=== PATIENT | male | born 1965 | race Caucasian/White ===

== ENCOUNTER 2023-06-06 16:19 | Outpatient (OUT) | payer OTHER, SELFPAY ==
--- NOTE | 2023-06-06 16:27 | XR_ITS ---
The [address] [address] Patient Name: DENNYS DURON MRN: [id number] date: 1965 Sex: M Assigned Patient Location: [facility] Current Patient Location: Accession/Order Number: [id number] Exam Date: 06/06/2023 16:30 Report Date: 06/07/2023 06:52 At the request of: LINDA MAYS Procedure: XR hip LT 2V w/ pelvis PROCEDURE: XR hip LT 2V w/ pelvis HISTORY: Left hip pain M25.552 COMPARISON: None. FINDINGS: BONES:No fracture, acute abnormality, or significant arthropathy. SOFT TISSUES:No visible soft tissue swelling. EFFUSION:None visible. OTHER: Degenerative disc disease of lumbar spine. XR/XR hip LT 2V w/ pelvis IMPRESSION: 1. No acute abnormality or significant degenerative joint disease of the left hip. 2. Suspect degenerative disc disease of lumbar spine. Electronically authenticated by: MENDY BIRMINGHAM Date: 06/07/2023 06:52
== END 2023-06-06 16:20 | disposition home or self-care (01) ==
LOC: RAD 16:21
PROVIDERS: PCP Internal Medicine; Visit Provider Internal Medicine
DX: M25.552 Pain in left hip (principal)
CPT/HCPCS: 73502

== ENCOUNTER 2023-06-07 07:40 | Outpatient (OUT) | payer OTHER, SELFPAY ==
[2023-06-07 08:09] LABS: Basophils Absolute Auto 0.1 10^3/uL (0.0-0.1); Basophils Percent Auto 0.5 % (0.2-2.0); Eosinophils Absolute Auto 0.4 10^3/uL (0.0-0.7); Eosinophils Percent Auto 4.2 % (0.9-7.0); Hematocrit 43.8 % (42.0-54.0); Hemoglobin 14.8 g/dL (14.0-18.0); Immature Granulocytes Abs Auto 0.04 10^3/uL (0.00-0.03); Immature Granulocytes Pct Auto 0.4 % (0.0-0.5); Lymphocytes Absolute Auto 1.2 10^3/uL (1.2-3.8); Lymphocytes Percent Auto 12.7 % (20.5-60.0); Mean Corpuscular HGB Conc 33.8 g/dL (29.9-35.2); Mean Corpuscular Hemoglobin 30.3 pg (25.9-34.0); Mean Corpuscular Volume 89.6 fL (80.0-94.0); Mean Platelet Volume 10.2 fL (9.5-13.5); Monocytes Absolute Auto 0.7 10^3/uL (0.3-0.8); Monocytes Percent Auto 7.1 % (1.7-12.0); Neutrophils Absolute Auto 7.3 10^3/uL (1.4-6.5); Neutrophils Percent Auto 75.1 % (43.0-75.0); Platelet Count 234 10^3/uL (150-450); Red Blood Count 4.89 10^6/uL (4.70-6.10); Red Cell Distribution Width 13.2 % (11.0-15.0); White Blood Count 9.8 10^3/uL (4.0-11.0)
[2023-06-07 08:10] LABS: Bilirubin Urine NEGATIVE (NEGATIVE); Blood Urine LARGE (NEGATIVE); Clarity Urine CLEAR (CLEAR); Color Urine LT. YELLOW (YELLOW); Glucose Urine UA NEGATIVE (NEGATIVE); Ketones Urine NEGATIVE (NEGATIVE); Leukocyte Esterase Urine NEGATIVE (NEGATIVE); Nitrite Urine NEGATIVE (NEGATIVE); Protein Urine NEGATIVE (NEG/TRACE); Specific Gravity Urine >=1.030 (1.005-1.025); Urobilinogen Urine 0.2 EU/dL (0.2-1.0)
[2023-06-07 08:45] LABS: Bacteria Urine NONE SEEN #/HPF (NONE SEEN); WBC Urine NONE SEEN #/HPF (NONE SEEN)
[2023-06-07 08:46] LABS: Mucus Urine NONE SEEN (NONE SEEN)
[2023-06-07 08:47] LABS: Crystals Seen? Seen #/HPF (None Seen); Squamous Epithelial Cell Urine FEW #/LPF (NONE/RARE)
[2023-06-07 08:48] LABS: Alanine Aminotransferase 25 U/L (16-63); Anion Gap 12.7; Calcium 8.8 mg/dL (8.5-10.1); Calcium Oxalate Crystals Urine RARE; Carbon Dioxide 27.1 mmol/L (21.0-32.0); Chloride 104 mmol/L (98-107); Chol HDL Ratio 6.1; Cholesterol 233 mg/dL (<=200); Estimated GFR (African America >60 (>=60); Estimated GFR (Non-African Ame >60 (>=60); Glucose 121 mg/dL (74-106); HDL Cholesterol 38 mg/dL (40-60); Potassium 3.8 mmol/L (3.5-5.1); Sodium 140 mmol/L (136-145); Triglycerides 166 mg/dL (<=150); VLDL CHOLESTEROL 33.2 mg/dL
[2023-06-07 08:49] LABS: Microalbumin Urine Random 3.2 mg/dL (<=30.0); Urine Culture Indicated ALREADY ORDERED
[2023-06-07 09:46] LABS: Estimated Average Glucose 123 mg/dL; Glycohemoglobin A1C 5.9 % (4.5-6.2)
[2023-06-07 17:01] LABS: Prostate Specific Antigen Scrn 2.41 ng/mL (<=4.00)
== END 2023-06-07 07:41 | disposition home or self-care (01) ==
LOC: LAB 07:43
PROVIDERS: PCP Internal Medicine; Visit Provider Internal Medicine
DX: Z00.00 Encounter for general adult medical examination without abnormal findings (principal); E78.00 Pure hypercholesterolemia, unspecified; E11.65 Type 2 diabetes mellitus with hyperglycemia; I10 Essential (primary) hypertension; Z79.899 Other long term (current) drug therapy; R35.0 Frequency of micturition; N40.1 Benign prostatic hyperplasia with lower urinary tract symptoms; Z12.5 Encounter for screening for malignant neoplasm of prostate
CPT/HCPCS: 36415; 80048; 80061; 81001; 82043; 83036; 84460; 85025; 87086; G0103

== ENCOUNTER 2024-01-09 20:57 | Outpatient (OUT) | payer OTHER, SELFPAY | END 2024-01-09 20:58 | disposition home or self-care (01) | LOC: SLEEP 20:57 | PROVIDERS: PCP Psychiatry & Neurology Neurology; Visit Provider Psychiatry & Neurology Neurology | DX: G47.33 Obstructive sleep apnea (adult) (pediatric) (principal) | CPT/HCPCS: 95810 ==

== ENCOUNTER 2024-02-11 20:57 | Outpatient (OUT) | payer OTHER, SELFPAY | END 2024-02-11 20:58 | disposition home or self-care (01) | LOC: SLEEP 20:57 | PROVIDERS: PCP Psychiatry & Neurology Neurology; Visit Provider Psychiatry & Neurology Neurology | DX: G47.33 Obstructive sleep apnea (adult) (pediatric) (principal) | CPT/HCPCS: 95811 ==

== ENCOUNTER 2024-05-21 10:27 | Outpatient (OUT) | payer OTHER, SELFPAY ==
--- NOTE | 2024-05-21 10:48 | XR_ITS ---
The [address] [address] Patient Name: DENNYS DURON MRN: [id number] date: 1965 Sex: M Assigned Patient Location: [facility] Current Patient Location: Accession/Order Number: [id number] Exam Date: 05/21/2024 10:40 Report Date: 05/24/2024 10:26 At the request of: LINDA MAYS Procedure: XR cervical spine w flex/ext EXAMINATION: XR cervical spine w flex/ext HISTORY: Neck Pain COMPARISON: No relevant comparison available. FINDINGS: BONES: Neutral projection demonstrates normal alignment with no acute fracture or spondylolisthesis. Mild facet osteoarthropathy DISC SPACES: Normal. No significant disc height narrowing, subluxation, or endplate abnormality. PARASPINOUS: Negative. No paraspinous abnormality is seen. OTHER: No transient spondylolisthesis with flexion or extension XR/XR cervical spine w flex/ext IMPRESSION: Mild facet osteoarthropathy No dynamic instability Electronically authenticated by: NEL BELLE Date: 05/24/2024 10:26
== END 2024-05-21 10:28 | disposition home or self-care (01) ==
PROVIDERS: PCP Internal Medicine; Visit Provider Internal Medicine
DX: Z00.00 Encounter for general adult medical examination without abnormal findings (principal); M54.2 Cervicalgia
CPT/HCPCS: 72052

== ENCOUNTER 2024-06-20 08:56 | Outpatient (OUT) | payer OTHER, SELFPAY ==
[2024-06-20 09:30] LABS: Basophils Absolute Auto 0.1 10^3/uL (0.0-0.1); Basophils Percent Auto 0.7 % (0.2-2.0); Eosinophils Absolute Auto 0.4 10^3/uL (0.0-0.7); Eosinophils Percent Auto 5.1 % (0.9-7.0); Hematocrit 41.6 % (42.0-54.0); Immature Granulocytes Abs Auto 0.02 10^3/uL (0.00-0.03); Immature Granulocytes Pct Auto 0.3 % (0.0-0.5); Lymphocytes Percent Auto 13.3 % (20.5-60.0); Mean Corpuscular HGB Conc 33.7 g/dL (29.9-35.2); Mean Corpuscular Hemoglobin 30.3 pg (25.9-34.0); Mean Platelet Volume 9.9 fL (9.5-13.5); Monocytes Absolute Auto 0.5 10^3/uL (0.3-0.8); Neutrophils Absolute Auto 5.4 10^3/uL (1.4-6.5); Neutrophils Percent Auto 73.6 % (43.0-75.0); Platelet Count 253 10^3/uL (150-450); Red Blood Count 4.62 10^6/uL (4.70-6.10); Red Cell Distribution Width 13.2 % (11.0-15.0); White Blood Count 7.3 10^3/uL (4.0-11.0)
[2024-06-20 09:34] LABS: Microalbumin Urine Random 1.6 mg/dL (<=30.0)
[2024-06-20 09:36] LABS: Estimated Average Glucose 120 mg/dL; Glycohemoglobin A1C 5.8 % (4.5-6.2)
[2024-06-20 10:16] LABS: Alanine Aminotransferase 30 U/L (16-63); Albumin Globulin Ratio 1.2; Albumin Level 3.7 g/dL (3.4-5.0); Alkaline Phosphatase 92 U/L (46-116); Anion Gap 12.8; Aspartate Amino Transferase 15 U/L (15-37); BUN Creatinine Ratio 26.8; Bilirubin Total 0.4 mg/dL (0.2-1.0); Calcium 8.9 mg/dL (8.5-10.1); Carbon Dioxide 28.2 mmol/L (21.0-32.0); Chloride 105 mmol/L (98-107); Cholesterol 229 mg/dL (<=200); Estimated GFR (African America >60 (>=60); Estimated GFR (Non-African Ame >60 (>=60); Glucose 125 mg/dL (74-106); HDL Cholesterol 57 mg/dL (40-60); Sodium 142 mmol/L (136-145); Total Protein 6.7 g/dL (6.4-8.2); Triglycerides 65 mg/dL (<=150)
[2024-06-20 10:34] LABS: Prostate Specific Antigen Scrn 1.41 ng/mL (<=4.00)
== END 2024-06-20 08:57 | disposition home or self-care (01) ==
LOC: LAB 08:57
PROVIDERS: PCP Internal Medicine; Visit Provider Internal Medicine
DX: Z00.00 Encounter for general adult medical examination without abnormal findings (principal)
CPT/HCPCS: 36415; 80053; 80061; 82043; 83036; 85025; G0103

== ENCOUNTER 2024-12-12 11:31 | Outpatient (OUT) | payer OTHER, SELFPAY ==
--- NOTE | 2024-12-12 | XR_ITS ---
[address] [address] Patient Name: DENNYS DURON MRN: [id number] date: 1965 Sex: M Assigned Patient Location: [facility] Current Patient Location: Accession/Order Number: [id number] Exam Date: 12/12/2024 15:49 Report Date: 12/13/2024 17:01 At the request of: EVAN JETT DO Procedure: XR chest 2V Plain film chest Single view HISTORY: Inspire implantation. Obstructive sleep apnea. COMPARISON: 09/07/2020 FINDINGS: SUPPORT DEVICES: None POSTSURGICAL CHANGES: None HEART: Within normal limits PULMONARY KARTHIK: Within normal limits MEDIASTINUM: Unremarkable LUNGS AND PLEURA: No acute lung process, pleural effusion or pneumothorax identified. Lungs remain hyperinflated. BONY STRUCTURES: Intact ADDITIONAL FINDINGS None XR/XR chest 2V IMPRESSION: No acute process. Intact implantation device. Impression dictated by: Romain Sahni M.D.12/13/2024 5:01 PM Dictation [email or web address] Electronically authenticated by: [id number] Y Date: 12/13/2024 17:01
--- NOTE | 2024-12-12 | XR_ITS ---
[address] [address] Patient Name: DENNYS DURON MRN: [id number] date: 1965 Sex: M Assigned Patient Location: [facility] Current Patient Location: [facility] Accession/Order Number: [id number] Exam Date: 12/12/2024 22:14 Report Date: 12/12/2024 22:24 At the request of: EVAN JETT DO Procedure: XR cervical spine 2-3V Single lateral viewcervical spine HISTORY: Evaluation of the implantation leads COMPARISON: 05/21/2024 POSTOPERATIVE CHANGES: Implant lead is intact. BONY ALIGNMENT: Adequate HYPERMOBILITY::No bending imaging. LISTHESIS:Minor midcervical spondylosis. FRACTURE: None DISC DEGENERATION: Mild spondylosis. FACETS: Extensive multilevel facet degeneration. FORAMEN: Unremarkable. DENS: Intact CRANIOCERVICAL JUNCTION: Unremarkable SOFT TISSUES: Unremarkable XR/XR cervical spine 2-3V IMPRESSION: Intact lead. No complication. Similar cervical spine degeneration. Impression dictated by: Romain Sahni M.D.12/12/2024 10:24 PM Dictation Location: [place] [address] Electronically authenticated by: [id number] Y Date: 12/12/2024 22:24
--- OUTSIDE RECORDS SUMMARY | 2024-12-12 11:56 | XMS_ITS | CCD ---
Author Organization [facility] Care Team Providers Care Oracle Adf Consultant Name Role Phone MAYRA PRINCEL B Unavailable Unavailable MAYRA PRINCEL Natali Unavailable Unavailable Aliza Gleason Unavailable Unavailable Aliza Gleason Unavailable Unavailable Joby Mays Unavailable Unavailabl Aliza Porras Unavailable Unavailable Veronique SALDIVAR, Joon Unavailable Micheal RECORDS TECHNICIAN.BELINDA, Zeynep Unavailable [phone] Dang GALVEZ, Diana Unavailable [phone] Joby Mays DO Primary Care Provider Veronique SALDIVAR, Joon Unavailable Micheal RECORDS TECHNICIAN.BELINDA, Zeynep Unavailable Dang GALVEZ, Diana Unavailable Joby Mays DO Primary Care Provider Veronique SALDIVAR, Joon Unavailable Dang GALVEZ, Diana Unavailable [phone] Joby Mays DO Primary Care Provider TABATHA, DR MCEKON Attending Unavailable BALL, DR MCKEON Admitting Unavailable BALL, DR MCKEON Primary Care Unavailable BALL, DR MCKEON Admitting Unavailable BALL, DR MCKEON Primary Care Unavailable BALL, DR MCKEON Consulting Unavailable BALL, DR MCKEON Attending Unavailable ZIEBER, DR MENDY Berman Consulting Unavailable BALL, DR MCKEON Admitting Unavailable BALL, DR MCKEON Primary Care Unavailable BALL, DR MCKEON Consulting Unavailable BALL, DR MCKEON Attending Unavailable ZIEBER, DR MENDY Berman Consulting Unavailable Veronique SALDIVAR, Joon Unavailable Micheal RECORDS TECHNICIAN.BELINDA, Zeynep Unavailable Sessler RN, Diana Unavailable Ball DO, Joby Powers Primary Care Provider Tabatha Joby Unavailable Ball DO, Joby E Primary Care Provider Sorin LITTLE, Saranya Unavailable Unavailable Dang GALVEZ, Diana Unavailable Evan Eugene Primary Care Provider Josy Santana Unavailable Ball DO, Joby E Primary Care Provider OLAMIDE VELASQUEZ Attending Unavailable BALL, JOBY E Referring Unavailable BALL, JOBY Powers Primary Care Unavailable RANIMEJIA Attending Unavailable BALL, JOBY E Referring Unavailable BALL, JOBY Powers Primary Care Unavailable RANIMEJIA Attending Unavailable BALL, JOBY E Referring Unavailable BALL, JOBY Powers Primary Care Unavailable BALL, JOBY E Referring Unavailable BALL, JOBY Powers Primary Care Unavailable GRILLISLAZARA Admitting Unavailable GRILLIS, LAZARA Powers Attending Unavailable GRILLISLAZARA Referring Unavailable BALL, JOBY Powers Primary Care Unavailable TRINO ISSA Attending Unavail able BALL, JOBY Powers Primary Care Unavailable GRILLISLAZARA Attending Unavailable GRILLIS, LAZARA Powers Referring Unavailable BALL, JOBY Powers Primary Care Unavailable RANIMEJIA MCLAIN Referring Unavailable BALL, JOBY E Primary Care Unavailable Ball Joby SALDIVAR Primary Care Provider MurJoby valdivia Attending Unavailable Ball, Joby Primary Care Unavailable Murcek, Joby Admitting Unavailable Murcek, Joby Admitting Unavailable Murcek, Joby Attending Unavailable Ball, Joby Primary Care Unavailable Ball Joby WEISS Primary Care Provider Murcek DO Joby Attending Provider JC, JOBY Fang Attending Unavailable EVNA EUGENE Attending Unavailable BALL, JOBY E Referring Unavailable GILLMORSILKE Attending Unavailable MURCEK, JOBY Fang Attending Unavailable GILLMORSILKE Referring Unavailable MURCEK, JOBY Fang Attending Unavailable GILLMORSILKE Attending Unavailable MURCEK, JOBY Fang Attending Unavailable MURCEK, JOBY Fang Attending Unavailable MURCEK, JOBY Fnag Attending Unavailable Ball , Joby Powers Primary Care Provider JOBY MAYS Primary Care Unavailable ABHYANKAR, JOON Referring Unavailable BALL, JOBY E Primary Care Unavailable BALL, JOBY E Primary Care Unavailable ABHYANKAR, JOON Referring Unavailable RACHAEL, TRINH Attending Unavailable BALL, JOBY E Primary Care Unavailable ABHYANKAR, JOON Referring Unavailable BALL, JOBY E Primary Care Unavailable BALL, JOBY E Primary Care Unavailable ABHYANKAR, JOON Referring Unavailable ABHYANKAR, JOON Attending Unavailable BALL, JOBY E Primary Care Unavailable BALL, JOBY E Primary Care Unavailable ABHYANKAR, JOON Referring Unavailable BALL, JOBY E Primary Care Unavailable ABHYANKAR, JOON Referring Unavailable BALL, JOBY E Primary Care Unavailable RACHAEL, TRINH Referring Unavailable BALL, JOBY E Primary Care Unavailable RACHAEL, TRINH Referring Unavailable ABHYANKAR, JOON Attending Unavailable ABHYANKAR, JOON Referring Unavailable BALL, JOBY E Primary Care Unavailable BALL, JOBY E Primary Care Unavailable BALL, JOBY E Primary Care Unavailable BALL, JOBY E Primary Care Unavailable ABHYANKAR, JOON Referring Unavailable ABHYANKAR, JOON Attending Unavailable BALL, JOBY E Primary Care Unavailable BALL, JOBY E Primary Care Unavailable RACHAEL, TRINH Attending Unavailable RACHAEL, TRINH Referring Unavailable BALL, JOBY E Primary Care Unavailable WANDA RODRIGUEZ Attending Unavailable BALL, JOBY E Primary Care Unavailable RACHAEL, TRINH Referring Unavailable BALL, JOBY E Primary Care Unavailable RACHAEL, TRINH Referring Unavailable BALL, JOBY E Primary Care Unavailable WANDA RODRIGUEZ Attending Unavailable RACHAEL, TRINH Referring Unavailable Ball DO, Joby E Primary Care Provider Evan Eugene DO Unavailable Allergies Allergy Classification Reported Allergen(s) Allergy Type Date of Onset Reaction(s) Facility (20 sources) Allopurinol; Translations: [ALLOPURINOL] Drug Allergy 09-10-20 13 Unknown [facility] (20 sources) Metoclopramide; Translations: [METOCLOPRAMIDE HCL] Drug Allergy 07-08-20 13 Mental Status Change [facility] (7 sources) Iothalamic Acid Drug Allergy 09-10-20 13 Unknown [facility] (2 sources) Tetanus Vaccines And Toxoid; Translations: [TETANUS VACCINES AND TOXOID] Drug Allergy 07-08-20 13 Anaphylaxis [facility] (20 sources) Tetanus Vaccines And Toxoid Drug Allergy 07-08-20 13 Anaphylaxis [facility] (2 sources) Iothalamate Drug Allergy 09-10-20 13 [facility] (10 sources) Acetaminophen / HYDROcodone Drug Allergy Unknown [facility] Other (20 sources) Metoclopramide; Translations: [METOCLOPRAMIDE] Drug Allergy 07-08-20 Other: See Comments, Unknown [facility] (10 sources) Tetanus-Diphtheri a Toxoids Td Drug allergy Unknown [facility] Other (20 sources) amLODIPine Drug Allergy 02-13-20 24 Unknown [facility] Other (20 sources) HMG-CoA reductase inhibitor Drug allergy 06-07-20 23 Unknown [facility] Other (1 source) patient allergy list reviewed by nurse or physicia Propensity to adverse reactions 05-21-20 Comment:Done [facility] [place] Other (20 sources) Acetaminophen; Translations: [ACETAMINOPHEN] Drug Allergy 05-21-20 Unknown Reaction [facility] (20 sources) HYDROcodone; Translations: [HYDROCODONE] Drug Allergy 05-21-20 Other: See Comments [facility] (4 sources) Swasatt-KRI-UfH Reductase Inhibitor; Translations: [Xrwlwhr-TVS-PtT Reductase Inhibitor] Allergy to substance 05-21-20 Unknown Reaction, Muscle Pain [facility] (20 sources) tetanus and diphtheria toxoids; Translations: [TETANUS AND DIPHTHERIA TOXOIDS] Allergy to substance 06-28-20 17 Anaphylaxis [facility] (20 sources) Doxycycline; Translations: [doxycycline] Drug Allergy 06-23-20 24 GI Upset [facility] (20 sources) atorvastatin; Translations: [ATORVASTATIN] Drug Allergy 01-08-20 Other: See Comments, muscle cramps [facility] (18 sources) Tetanus vaccine Propensity to adverse reactions 02-13-20 [facility] (18 sources) Hhmfste-Vjhnem-Xm ell Pertussis Propensity to adverse reactions 06-07-19 66 Anaphylaxis [facility] (1 source) Metoclopramide Drug Allergy 09-12-20 [facility] Medications Current Medications Medication Drug Class(es) Dates Sig (Normalized) Sig (Original) acetaminophen 500 mg oral tablet (20 sources) take 1 tablet by mouth every eight hours as needed acetaminophen (TYLENOL EXTRA STRENGTH) 500 mg tablet Take 500 mg by mouth every 8 hours as needed. Active Comment on above: Take 500 mg by mouth every 8 hours as needed. [id number] 200 actuat albuterol 0.09 mg/actuat metered dose inhaler (20 sources) beta2-Adrenergic Agonist Start: 12-19-2023 take 2 puff(s) by inhalation once daily as needed albuterol (PROVENTIL HFA;VENTOLIN HFA) 90 mcg/actuation inhaler Inhale 2 puffs daily as needed. 12/19/2023 Active Start: 12-11-2023 End: 12-19-2023 Albuterol Sulfate 90 mcg/act uation HFA aerosol inhaler Active 2 PUFF INHALATION every 6 to 8 hours as needed for shortness of breath or wheezing 8.5 December 19, 2023 12:35pm Start: 07-26-2022 albuterol HFA 90 mcg/act inhaler 07/26/2022 Active Start: 08-19-2020 albuterol HFA (PROVENTIL HFA, VENTOLIN HFA) 90 mcg/actuation inhaler INHALE 2 PUFFS BY MOUTH NEEDED 08/19/2020 Active take 2 puff(s) by in halation every four hours as needed Ventolin HFA 108 (90 Base) MCG/ACT 2 puffs as needed Inhalation every 4 hrs Active Comment on above: INHALE 2 PUFFS BY MO UT NEEDED Albuterol 90 MCG/ACT (10 sources) Albuterol 90 MCG /ACT Inhalation Active amLODIPine (20 sources) Dihydropyridine Calcium Channel Evelio Start: 09-10-2024 Amlodipine 10 mg tablet Active 0 .ROUTE .COMPLEX September 10, 2024 7:00am TAKE 1 TABLET DAILY Start: 09-10-2024 End: 09-10-2024 Amlodipine 10 mg tablet Disc ontinued 0 .ROUTE .COMPLEX September 10, 2024 6:59am September 10, 2024 7:00am TAKE 1 TABLET DAILY Start: 07-26-2022 End: 09-10-2024 take 1 tablet by mouth once daily amLODIPine (NORVASC) 10 mg tablet Take 10 mg by mouth once daily. 07/26/2022 Active End: 08-11-2022 amLODIPine (Norvasc) 5 MG ta blet 1 (one) time each day at the same time. Active Comment on above: Take 5 mg by mouth o nce daily. Take 10 mg by mouth once daily. benazepril (20 sources) Angiotensin Converting Enzyme Inhibitor Start: 09-10-2024 Benazepril 40 mg tablet Active 0 .ROUTE .COMPLEX 90 September 10, 2024 6:59am TAKE 1 TABLET DAILY Start: 06-27-2017 End: 09-10-2024 take 1 tablet by mouth once daily Benazepril 40 mg tablet Discontinued 40 MG PO Daily June 26, 2017 11:00pm September 10, 2024 6:59am take 1 tablet by frankie th every twenty-four hours Benazepril HCl 20 MG 1 tablet Orally Once a day Active Comment on above: Take 40 mg by mouth once daily. 60 actuat budesonide 0.16 mg/actuat / formoterol fumarate 0.0045 mg/actuat metered dose inhaler (20 sources) Corticosteroid, beta2-Adrenergic Agonist Start: 12-25-2023 take 2 puff(s) by inhalation once daily Symbicort 160-4.5 MCG/ACT inhaler Inhale 2 puffs Daily 12/25/2023 Active Start: 12-25-2023 take 2 puff(s) by in halation in the morning budesonide-formoteroL (SYMBICORT) 160-4.5 mcg/actuation inhaler Inhale 2 puffs in the morning and 2 puffs before bedtime. 12/25/2023 Active Start: 12-25-2023 End: 12-25-2023 take 1 puff(s) by inhalation every twelve hours Budesonide-Formoterol 160-4.5 mcg/actuation HFA aerosol inhaler Active 2 PUFF INHALATION Every 12 hours 30.6 90 December 25, 2023 12:13pm carvedilol 25 mg oral tablet (8 sources) alpha-Adrenergic Evelio, beta-Adrenergic Evelio take 1 tablet by mouth every twelve hours Carvedilol 25 MG 1 tablet with food Orally Twice a day Active cephalexin 500 mg oral capsule (4 sources) Cephalosporin Antibacterial Start: 06-23-20 End: 07-24-20 take 1 capsule by mouth three times daily CEPHalexin (KEFLEX) 500 mg capsule Take 1 capsule (500 mg total) by mouth 3 (three) times a day. 06/23/2024 Active doxycycline hyclate 100 mg oral tablet (2 sources) Tetracycline-class Drug Start: 05-08-20 End: 05-18-20 take 1 tablet by mouth in the morning, then take 1 tablet by mouth at bedtime doxycycline (VIBRA-TABS) 100 mg tablet Take 1 tablet (100 mg total) by mouth in the morning and 1 tablet (100 mg total) before bedtime. 05/08/2024 05/18/2024 Active fenofibrate 160 mg oral tablet (8 sources) Peroxisome Proliferator Receptor alpha Agonist take 1 tablet by mouth every twenty-four hours Fenofibrate 160 MG 1 tablet Orally Once a day Active gabapentin 100 mg oral capsule (20 sources) Anti-epileptic Agent Start: 04-16-20 End: 11-25-19 take 1 capsule by mouth at bedtime gabapentin (Neurontin) 100 MG capsule Take 100 mg by mouth at bedtime. 04/16/2023 Active Comment on above: Take 1 capsule by mo [facility] daily at bedtime for 60 days. Take 1 capsule by mo [facility] daily at bedtime for 180 days. ibuprofen 200 mg oral capsule (20 sources) Nonsteroidal Anti-inflammatory Drug Ibuprofen 200 mg cap Take by mouth every 6 hours as needed. Active Comment on above: Take by mouth every 6 hours as needed. loratadine 10 mg oral tablet (20 sources) Start: 12-11-19 take 1 tablet by mouth once daily as needed Loratadine (Claritin) 10 mg tablet Active 10 MG PO Daily as needed for allergy symptoms December 11, 2023 12:00am loratadine (Clar itin Reditabs) 5 MG tablet dispersible dissolvable tablet Take 10 mg by mouth if needed Active Comment on above: Take 10 mg by mouth as needed. metFORMIN hydrochloride 500 mg oral tablet (20 sources) Biguanide Start: 06-07-2015 End: 12-12-2023 metFORMIN (Glucophage) 500 MG tablet 1 (one) time each day at the same time. 06/07/2015 Active End: 03-22-2023 take 1 tablet by mouth once daily at dinner metFORMIN ER (FORTAMET) 500 mg 24 hr tablet Take 500 mg by mouth daily with dinner. 0 03/22/2023 Discontinued take 1 tablet by frankie th every twelve hours metFORMIN HCl 500 MG 1 tablet with meals Orally Twice a day Active Comment on above: Take 500 mg by mouth once daily. Take 500 mg by mouth daily with dinner. 30 actuat mometasone furoate 0.11 mg/actuat dry powder inhaler (20 sources) Corticosteroid Start: 10-24-19 End: 06-24-20 take 1 puff(s) by inhalation once daily ASMANEX TWISTHALER 110 mcg/ actuation (30) inhaler Inhale 1 puff once daily. 10/24/2023 06/24/2024 Discontinued (Cost of medication) Start: 07-27-2022 End: 03-22-2023 ASMANEX TWISTHALER 110 mcg/ actuation (30) twisthaler Mometasone Furoa te (Asmanex HFA) 100 MCG/ACT aerosol Inhale 2 (two) times a day Active Asmanex (30 Mete red Doses) 110 MCG/ACT USE 1 TO 2 INHALATIONS DAILY Active Multiple Vitamin (Multi-Vitamin) tablet (18 sources) take 1 tablet by frankie th in the morning Multiple Vitamin (Multi-Vitamin) tablet Take 1 tablet by mouth in the morning. Active multivitamin tablet (20 sources) take 1 tablet by frankie th once daily multivitamin tablet Take 1 tablet by mouth once daily. Active take 1 tablet by mouth once morris y multivitamin tablet Take 1 tablet by mouth once daily. 0 Active Comment on above: Take 1 tablet by frankie th once daily. plvlwqhayfjk-Xx-hbad- minerals tablet (8 sources) take 1 tablet by mouth once daily pxmrrvabpgtt-Ho-juez-min erals tablet Take 1 tablet by mouth respiratory nightly. Active take 1 tablet by frankie th in the morning dlnlntrtsppa-Kg-nhnc-minerals tablet Romero e 1 tablet by mouth in the morning. 0 Active naproxen 500 mg oral tablet (1 source) Nonsteroidal Anti-inflammatory Drug Start: 11-11-2024 take 1 tablet by mouth twice daily as needed for pain Naproxen 500 mg tablet Active 500 MG PO Twice daily as needed for pain 180 90 November 11, 2024 12:00am omeprazole 40 mg delayed release oral capsule (20 sources) Proton Pump Inhibitor Start: 01-30-2024 take 1 capsule by mouth in the morning omeprazole (PriLOSEC) 40 mg capsule Take 1 capsule (40 mg total) by mouth in the morning. 30 capsule 1 01/30/2024 Active Start: 06-27-2017 End: 12-11-2023 take 1 tablet by mouth once daily Omeprazole 20 mg tablet,delayed release (DR/EC) Discontinued 20 MG PO Daily June 26, 2017 11:00pm December 11, 2023 11:16am take 20 mg by mouth once daily O MEPRAZOLE (PRILOSEC ORAL) Take 20 mg by mouth once daily. Active End: 01-30-2024 omeprazole (PriLOSEC) 20 mg capsule Take 1 capsule (20 mg total) by mouth as needed. 01/30/2024 Discontinued Comment on above: Take 20 mg by mouth once daily. sertraline 100 mg oral tablet (20 sources) Serotonin Reuptake Inhibitor Start: 07-07-2024 End: 07-07-2024 take 2 tablets by mouth once daily Sertraline 100 mg tablet Active 200 MG PO Daily 180 July 07, 2024 5:10pm Start: 12-11-2023 End: 12-12-2023 take 2 tablets by mouth once daily Sertraline 100 mg tablet Discontinued 200 MG PO Daily 180 December 12, 2023 10:49am December 12, 2023 9:55pm Start: 12-11-2023 End: 12-12-2023 take 200 mg by mouth once daily Sertraline Discontinue d 200 MG PO Daily 180 December 12, 2023 11:49am December 12, 2023 10:55pm Start: 06-07-2016 sertraline (Zo loft) 100 MG tablet every 12 (twelve) hours. 06/07/2016 Active take 1 tablet by frankie th twice daily sertraline (ZOLOFT) 100 mg tablet Take 100 mg by mouth twice daily. Active take 1 tablet by frankie th every twenty-four hours Zoloft 100 MG 1 tablet Orally Once a day for 30 day(s) Active Sertraline HCl 1 00 mg TAKE 2 TABLETS DAILY Active Comment on above: Take 100 mg by mouth twice daily. tadalafil 5 mg oral tablet (1 source) Phosphodiesterase 5 Inhibitor Start: take 1 tablet by mouth once daily Tadalafil 5 mg tablet Active 5 MG PO Daily November 11, 2024 12:00am Completed/Discontinued Medications Medication Drug Class(es) Dates Sig (Normalized) Sig (Original) amoxicillin 875 mg / clavulanate 125 mg oral tablet (9 sources) Penicillin-class Antibacterial Start: 03-31-2021 End: 03-22-2023 amoxicillin-clav ulanic acid (AUGMENTIN) 875-125 mg per tablet Augmentin Tablets 875 MG (8 sources) Start: 06-23-2015 take 1 tablet by mouth every twelve hours Augmentin Tablets 875 MG 1 bby mouth every 12 hours with probiotics for 10 days Jun, Not-Taking Start: 06-23-2015 take 1 tablet by frankie th every twelve hours Augmentin Tablets 875 MG 1 bby mouth every 12 hours with probiotics for 10 days Jun, Active bisoprolol fumarate 10 mg / hydroCHLOROthiazide 6.25 mg oral tablet (1 source) Thiazide Diuretic, beta-Adrenergic Evelio End: 08-15-2021 take 1 tablet by mouth once daily bisoprolol-hydrochlorothiazide (ZIAC) 10-6.25 mg per tablet Take 1 tablet by mouth once daily. 0 08/15/2021 Discontinued Comment on above: Take 1 tablet by frankie th once daily. Budesonide (20 sources) Corticosteroid Start: 12-11-2023 End: 12-25-2023 take 180 ug by inhalat ion twice daily Budesonide 180 mcg/actuation aerosol powdr breath activated Discontinued 180 MCG INHALATION Twice daily December 11, 2023 12:00am December 25, 2023 12:10pm Start: 12-11-2023 End: 12-25-2023 take 180 ug by inhalation twice daily Budesonide Discontinued 180 MCG INHALATION Twice daily December 11, 2023 1:00am December 25, 2023 1:10pm Start: 08-27-2023 take 1 puff(s) by in halation twice daily Pulmicort Flexhaler 180 MCG/ACT 1 puff Inhalation Twice a day for 90 days Aug, Active take 2 mL by inhalat ion once daily budesonide (PULMICORT) 0.25 mg/2 mL nebulizer solution Inhale 2 mL (0.25 mg total) by nebulization once daily. Active take 0.25 mg by inha lation once daily budesonide (PULMICORT) 0.25 mg/2 mL nebulizer solution Inhale 0.25 mg by nebulization once daily. 0 Active End: 03-22-2023 take 2 puff(s) by inhalation twice daily budesonide (PULMICORT FLEXHALER) 180 mcg/actuation aepb Inhale 2 Puffs as instructed twice daily. 0 03/22/2023 Discontinued take 2 puff(s) by in halation twice daily budesonide (PULMICORT FLEXHALER) 180 mcg/actuation aepb Inhale 2 Puffs as instructed twice daily. 0 Active Comment on above: Inhale 2 Puffs as in structed twice daily. 24 hr buPROPion hydrochloride 150 mg extended release oral tablet (1 source) Aminoketone Start: 01-12-20 End: 08-15-20 buPROPion XL (WELLBUTRIN XL) 150 mg 24 hr tablet cefuroxime 500 mg oral tablet (10 sources) Cephalosporin Antibacterial Start: 12-05-19 take 1 tablet by mouth every twelve hours Cefuroxime Axetil 500 MG 1 tablet Orally every 12 hrs for 5 day(s) Nov, Not-Taking ezetimibe 10 mg oral tablet (1 source) Dietary Cholesterol Absorption Inhibitor Start: 06-25-20 End: 08-29-20 24 take 1 tablet by mouth once daily Ezetimibe 10 mg tablet Discontinued 10 MG PO Daily June 24, 2024 11:00pm August 29, 2024 2:35pm 30 actuat fluticasone furoate 0.05 mg/actuat dry powder inhaler (3 sources) Corticosteroid Start: 12-24-19 End: 12-25-19 Fluticasone Furoate 50 mcg/actuation blister with device Discontinued 1 INH INHALATION Daily December 23, 2023 11:00pm December 25, 2023 12:08pm hydrOXYzine pamoate 25 mg oral capsule (1 source) Antihistamine Start: 06-01-20 End: 08-15-20 hydrOXYzine pamoate (VISTARIL) 25 mg capsule TAKE 1-2 capsules THREE TIMES DAILY NEEDED FOR ANXIETY 0 06/01/2020 08/15/2021 Discontinued Comment on above: TAKE 1-2 capsules TH REE TIMES DAILY NEEDED FOR ANXIETY meloxicam 7.5 mg oral tablet (13 sources) Nonsteroidal Anti-inflammatory Drug Start: 12-11-19 End: 08-29-20 take 1 tablet by mouth once daily Meloxicam 7.5 mg tablet Discontinued 7.5 MG PO Daily December 11, 2023 12:00am August 29, 2024 2:35pm take 1 tablet by frankie th every twenty-four hours Meloxicam 7.5 MG 1 tablet Orally Once a day Active mirtazapine 45 mg oral tablet (1 source) End: 08-15-2021 take 1 tablet by mouth once daily at bedtime mirtazapine (REMERON) 45 mg tablet Take 45 mg by mouth daily at bedtime. 0 08/15/2021 Discontinued Comment on above: Take 45 mg by mouth daily at bedtime. Mometasone (Asmanex Hfa) 100 mcg/actuation HFA aerosol inhaler (3 sources) Start: 12-11-2023 End: 12-25-2023 take 1 puff(s) by inhalation twice daily Mometasone (Asmanex Hfa) 100 mcg/actuation HFA aerosol inhaler Discontinued 2 PUFF INHALATION Twice daily December 11, 2023 12:00am December 25, 2023 12:10pm Start: 12-11-2023 End: 12-25-2023 take 1 puff(s) by inhalation twice daily Mometasone (Asmanex Hfa) 100 mcg/actuation HFA aerosol inhaler Discontinued 2 PUFF INHALATION Twice daily December 11, 2023 1:00am December 25, 2023 1:10pm riTUXimab-pvvr 700 mg in NaC l 0.9% 250 mL (RUXIENCE) (3 sources) Start: 11-12-2024 End: 11-12-2024 700 mg (rounded from 735 mg = 375 mg/m2 1.96 m2 Treatment Plan BSA from Recorded weight), INTRAVENOUS, ONCE, 1 dose, On Sun11/12/24 at 1000, EXP: 0930 11/13/24 Total Volume = 250 ml Infuse 50 ml over 30 minutes then 200 ml over 60 minutes. Refrigerate., Medication Substitution: [facility] preferred product has been replaced with the insurance mandated product Start: 09-17-2024 End: 09-17-2024 700 mg (rounded from 738.75 mg = 375 mg/m2 1.97 m2 Treatment Plan BSA from Recorded weight), INTRAVENOUS, ONCE, 1 dose, On Sun09/17/24 at 1030, EXP: 09/18/2024 0945 RT Total Volume = 250 ml Infuse 50 ml over 30 minutes then 200 ml over 60 minutes. Refrigerate. Start: 09-10-2024 End: 09-10-2024 700 mg (rounded from 738.75 mg = 375 mg/m2 1.97 m2 Treatment Plan BSA from Recorded weight), INTRAVENOUS, ONCE, 1 dose, On Sun09/10/24 at 1000, EXP: 09/11/2024 0930 RT Total Volume = 250 ml Infuse 50 ml over 30 minutes then 200 ml over 60 minutes. Refrigerate. riTUXimab-pvvr 700 mg in NaC l 0.9% 610 mL (RUXIENCE) (2 sources) Start: 08-27-2024 End: 08-27-2024 700 mg (rounded from 738.75 mg = 375 mg/m2 1.97 m2 Treatment Plan BSA from Recorded weight), INTRAVENOUS, ONCE, 1 dose, On Sun08/27/24 at 1030, EXP: 08/28/2024 0945 RT Infuse at rate of 100mg/hr. If no hypotension, increase rate every 30 minutes by 100mg/hr to a maximum rate of 400mg/hr. Refrigerate. Start: 08-20-2024 End: 08-20-2024 700 mg (rounded from 738.75 mg = 375 mg/m2 1.97 m2 Treatment Plan BSA from Recorded weight), INTRAVENOUS, ONCE, 1 dose, On Sun08/20/24 at 1000, EXP: 08/21/2024 0935 RT Infuse at rate of 50mg/hr. If no hypotension, increase rate every 30 minutes by 50mg/hr to a maximum rate of 400mg/hr. Refrigerate. sildenafil (20 sources) Phosphodiesterase 5 Inhibitor Start: 12-12-2023 End: 11-11-2024 Sildenafil 100 mg tablet Discontinued 0 .ROUTE .COMPLEX December 12, 2023 9:55pm November 11, 2024 9:39am TAKE ONE-HALF (1/2) TO ONE TABLET NEEDED FOR ERECTILE DYSFUNCTION Start: 12-12-2023 Sildenafil Act rocky 0 .ROUTE .COMPLEX December 12, 2023 10:55pm TAKE ONE-HALF (1/2) TO ONE TABLET NEEDED FOR ERECTILE DYSFUNCTION Start: 04-07-2020 sildenafil (Vi agra) 100 MG tablet 05/28/2023 Active Comment on above: Take 100 mg by mouth as needed. sod sulf-pot chloride-mag sulf 1.479-0.188- 0.225 gram tablet (5 sources) Start: 01-08-2024 End: 05-13-2024 sod sulf-pot chloride-mag sulf 1.479-0.188- 0.225 gram tablet Indications: Encounter for colonoscopy due to history of colonic polyp Please see instructional sheet given by physicians office. 24 tablet 01/08/2024 05/13/2024 Discontinued (Therapy completed) Start: 01-08-2024 sod sulf-pot c hloride-mag sulf 1.479-0.188- 0.225 gram tablet Indications: Encounter for colonoscopy due to history of colonic polyp Please see instructional sheet given by physicians office. 24 tablet 01/08/2024 Active Start: 01-08-2024 sod sulf-pot c hloride-mag sulf 1.479-0.188- 0.225 gram tablet Indications: Encounter for colonoscopy due to history of colonic polyp Please see instructional sheet given by physicians office. 24 tablet 0 01/08/2024 Active tamsulosin hydrochloride 0.4 mg oral capsule (4 sources) alpha-Adrenergic Evelio Start: 07-24-2024 End: 11-11-2024 take 1 capsule by mouth once daily at bedtime Tamsulosin 0.4 mg capsule Discontinued 0.4 MG PO Daily at bedtime July 23, 2024 11:00pm November 11, 2024 9:39am take 1 capsule by mo [facility] once daily at dinner Tamsulosin HCl 0.4 MG 1 capsule Orally O nce a day, after evening meal for 30 days Active tiZANidine 4 mg oral tablet (5 sources) Central alpha-2 Adrenergic Agonist Start: 05-21-2024 End: 08-29-2024 take 0.5-1 tablets by mouth once daily at bedtime Tizanidine 4 mg tablet Discontinued 0 .ROUTE .COMPLEX May 21, 2024 7:56pm August 29, 2024 2:36pm TAKE 1/2 (ONE-HALF) TO 1 (ONE) TABLET BY MOUTH EVERY DAY AT BEDTIME Start: 05-21-2024 take 0.5-1 tablets b y mouth once daily at bedtime Tizanidine Active 0 .ROUTE .COMPLEX May 21, 2024 8:56pm TAKE 1/2 (ONE-HALF) TO 1 (ONE) TABLET BY MOUTH EVERY DAY AT BEDTIME Start: 05-21-2024 End: 05-21-2024 take 1 tablet by mouth once daily at bedtime Tizanidine 4 mg tablet Discontinued 4 MG PO Daily at bedtime 15 May 20, 2024 11:00pm May 21, 2024 7:56pm 1/2 - 1 PO q HS 24 hr venlafaxine 75 mg extended release oral capsule (1 source) Serotonin and Norepinephrine Reuptake Inhibitor Start: 06-01-2020 End: 08-15-2021 take 1 capsule by mouth once daily in the morning venlafaxine ER (EFFEXOR XR) 75 mg 24 hr capsule Take 75 mg by mouth every morning. 0 06/01/2020 08/15/2021 Discontinued Comment on above: Take 75 mg by mouth every morning. Problems Active Problems Problem Classification Problem Date Documented Da te Episodic/Chronic Abdominal pain (1 source) Epigastric pain; Translations: [Epigastric pain] Episodic Acute bronchitis (12 sources) Acute bronchitis; Translations: [Acute bronchitis] Episodic Anxiety disorders (3 sources) Anxiety; Translations: [Anxiety disorder, unspecified] 12-11-2023 Chronic Asthma (7 sources) Mild intermittent asthma; Translations: [Mild intermittent asthma, uncomplicated] 05-11-2024 Chronic Asthma (1 source) Asthma Onset: 8 Cardiac dysrhythmias (1 source) Palpitations; Translations: [Palpitations] Episodic Deficiency and other anemia (1 source) Chronic anemia; Translations: [Anemia in other chronic diseases classified elsewhere] Onset: 5 Chronic Deficiency and other anemia (1 source) Anemia due to chronic blood loss; Translations: [Iron deficiency anemia secondary to blood loss (chronic)] Onset: 6 Chronic Deficiency and other anemia (3 sources) Iron deficiency anemia; Translations: [Other iron deficiency anemias] Episodic Deficiency and other anemia (1 source) Anemia; Translations: [Anemia, unspecified] Episodic Diabetes mellitus with complications (20 sources) Type 2 diabetes mellitus; Translations: [Type 2 diabetes mellitus with diabetic polyneuropathy] Onset: 4 Chronic Diabetes mellitus with complications (1 source) Diabetes mellitus with complications Onset: 8 Disorders of lipid metabolism (18 sources) Hyperlipidemia; Translations: [Hyperlipidemia, unspecified] Onset: 4 Chronic Diverticulosis and diverticulitis (1 source) Diverticulosis of intestine, part unspecified, without perforation or abscess without bleeding; Translations: [Diverticulosis of intestine, part unspecified, without perforation or abscess without bleeding] Onset: 4 Chronic Esophageal disorders (14 sources) Gastro-esophageal reflux disease with esophagitis; Translations: [Gastroesophageal reflux disease with esophagitis without hemorrhage] Onset: 4 05-11-2024 Chronic Essential hypertension (1 source) Essential hypertension Onset: 8 Gastritis and duodenitis (1 source) Chronic superficial gastritis without bleeding; Translations: [Chronic superficial gastritis without bleeding] Onset: 4 Chronic Genitourinary symptoms and ill-defined conditions (4 sources) Polyuria; Translations: [Other polyuria] Onset: 8 Episodic Headache; including migraine (1 source) Tension-type headache; Translations: [Tension type headache, unspecified] Chronic Hyperplasia of prostate (16 sources) Benign prostatic hypertrophy without outflow obstruction; Translations: [Hypertrophy (benign) of prostate without urinary obstruction and other lower urinary tract symptoms [LUTS]] Onset: 5 Chronic Immunizations and screening for infectious disease (1 source) Contact with and (suspected) exposure to other viral communicable diseases; Translations: [Contact with and (suspected) exposure to COVID-19] Episodic Mood disorders (2 sources) Major depressive disorder, single episode, unspecified; Translations: [Major depressive disorder, single episode, unspecified] Onset: 7 Neoplasms of unspecified nature or uncertain behavior (4 sources) Monoclonal gammopathy (clinical); Translations: [Monoclonal gammopathy] Chronic Neoplasms of unspecified nature or uncertain behavior (16 sources) Paraneoplastic neuropathy; 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] Onset: 4 04-25-2023 Episodic Non-Hodgkin`s lymphoma (20 sources) Waldenstrom macroglobulinemia; Translations: [Waldenstrom macroglobulinemia] Onset: 0 Chronic Open wounds of extremities (1 source) Laceration of left hand; Translations: [Laceration without foreign body of left hand, initial encounter] 06-23-2024 Episodic Other acquired deformities (2 sources) Acquired spondylolisthesis; Translations: [Spondylolysis, lumbar region] Episodic Other aftercare (2 sources) Other joint terminal attack controller (current) drug therapy Episodic Other and unspecified benign neoplasm (1 source) Polyp of colon; Translations: [Polyp of colon] Episodic Other and unspecified benign neoplasm (1 source) Benign neoplasm of colon; Translations: [Benign neoplasm of colon, unspecified] Episodic Other and unspecified benign neoplasm (1 source) Benign neoplasm of descending colon; Translations: [Benign neoplasm of descending colon] Episodic Other connective tissue disease (1 source) Tear of right rotator cuff; Translations: [Unspecified rotator cuff tear or rupture of right shoulder, not specified as traumatic] Episodic Other ear and sense organ disorders (1 source) Otitis externa; Translations: [Unspecified otitis externa, unspecified ear] Onset: 4 Chronic Other ear and sense organ disorders (1 source) Otorrhea of left ear; Translations: [Otorrhea, left ear] Episodic Other endocrine disorders (1 source) Testicular hypofunction; Translations: [Testicular hypofunction] Chronic Other gastrointestinal disorders (1 source) H/O: gastrointestinal disease; Translations: [Personal history of other diseases of the digestive system] Episodic Other hereditary and degenerative nervous system conditions (18 sources) Myoclonus; Translations: [Myoclonus] Onset: 4 02-13-2024 Chronic Other male genital disorders (2 sources) Impotence of organic origin; Translations: [Erectile dysfunction due to arterial insufficiency] Chronic Other nervous system disorders (1 source) Polyneuropathy; Translations: [Polyneuropathy, unspecified] Chronic Other non-traumatic joint disorders (1 source) Arthralgia of the lower leg; Translations: [Pain in left knee] Episodic Other non-traumatic joint disorders (1 source) Hip pain; Translations: [Pain in right hip] 05-28-2023 Episodic Other non-traumatic joint disorders (2 sources) Pain in left hip Episodic Other nutritional; endocrine; and metabolic disorders (1 source) Obesity; Translations: [Obesity, unspecified] Chronic Other nutritional; endocrine; and metabolic disorders (1 source) Simple obesity ; Translations: [Other obesity due to excess calories] Onset: 4 Chronic Other nutritional; endocrine; and metabolic disorders (1 source) Body mass index 30+ - obesity; Translations: [Body mass index 30.0-30.9, adult] Onset: 4 Chronic Other nutritional; endocrine; and metabolic disorders (1 source) Overweight; Translations: [Overweight] Episodic Other skin disorders (2 sources) Epidermal cyst; Translations: [Epidermal cyst] Onset: 4 Episodic Other upper respiratory infections (1 source) Acute recurrent maxillary sinusitis Episodic Residual codes; unclassified (20 sources) Obstructive sleep apnea syndrome; Translations: [Obstructive sleep apnea (adult) (pediatric)] Onset: 4 12-21-2023 Chronic Residual codes; unclassified (4 sources) Obstructive sleep apnea (adult) (pediatric); Translations: [Obstructive sleep apnea (adult)(pediatric)] Onset: 4 05-21-2024 Chronic Residual codes; unclassified (20 sources) Hypersomnia; Translations: [Hypersomnia, unspecified] Onset: 4 02-13-2024 Chronic Residual codes; unclassified (5 sources) Localized edema; Translations: [Localized edema] Onset: 2 Episodic Residual codes; unclassified (2 sources) Other specified health status; Translations: [Other specified conditions influencing health status] 07-14-2024 Episodic Skin and subcutaneous tissue infections (1 source) Local infection of the skin and subcutaneous tissue, unspecified; Translations: [Local infection of the skin and subcutaneous tissue, unspecified] Onset: 4 Episodic Sprains and strains (4 sources) Neck sprain; Translations: [Neck sprain and strain] Onset: 5 11-11-2024 Episodic Substance-related disorders (17 sources) Tobacco user; Translations: [Nicotine dependence, cigarettes, uncomplicated] Onset: 8 Chronic Suicide and intentional self-inflicted injury (3 sources) Suicide attempt ; Translations: [Toxic effect of unspecified substance, intentional self-harm, initial encounter] 09-19-2023 Episodic Comment on above: Problem List clean-u p per request of Phys. EHR Cmte Unclassified (3 sources) Abnormal weight loss / R63.4(ICD-10) Onset: 8 Unclassified (1 source) Disease of pancreas, unspecified / K86.9(ICD-10) Onset: 8 Unclassified (1 source) Obstructive sleep apnea (adult) (pediatric) / G47.33(ICD-10) Onset: 8 Unclassified (1 source) Abnormal findings on diagnostic imaging of body structures / R93.8(ICD-10) Onset: 8 Unclassified (1 source) Nicotine dependence, unspecified, uncomplicated / F17.200(ICD-10) Onset: 8 Unclassified (1 source) Gastritis, unspecified, with bleeding / K29.71(ICD-10) Onset: 8 Unclassified (2 sources) Adult failure to thrive / R62.7(ICD-10) Onset: 8 Unclassified (1 source) Disease of stomach and duodenum, unspecified / K31.9(ICD-10) Onset: 8 Unclassified (1 source) Cyst Onset: 4 Unclassified (1 source) Breast Mass Onset: 4 Unclassified (1 source) Colon Cancer Screening Onset: 4 Unclassified (1 source) Esophagitis, unspecified without bleeding; Translations: [Esophagitis, unspecified without bleeding] Onset: 4 Unclassified (1 source) gastroesophageal reflux, history of colon polyps Onset: 4 Urinary tract infections (3 sources) Urinary tract infectious disease; Translations: [Urinary tract infection, site not specified] 09-19-2023 Episodic Comment on above: Problem List clean-u p per request of Phys. EHR Cmte Viral infection (1 source) Disease caused by 2019-nCoV; Translations: [COVID-19] Past or Other Problems Problem Classification Problem Date Documented Date Episodic/Chronic Abdominal hernia (1 source) Inguinal hernia; Translations: [Unilateral inguinal hernia, without obstruction or gangrene, not specified as recurrent] Onset: 01-11-2018 Episodic Diabetes mellitus without complication (20 sources) Type 2 diabetes mellitus without complication; Translations: [Type 2 diabetes mellitus without complications] Onset: 07-22-2013 Resolved: 03-18-2024 09-29-2016 Chronic Epilepsy; convulsions (1 source) Seizure; Translations: [Other convulsions] Onset: 05-21-2019 Episodic Esophageal disorders (2 sources) Esophageal disorders Essential hypertension (20 sources) Benign essential hypertension; Translations: [Essential hypertension, benign] Onset: 07-22-2013 Resolved: 03-18-2024 Chronic Malaise and fatigue (20 sources) Malaise and fatigue; Translations: [Other malaise and fatigue] Onset: 08-13-2018 02-13-2024 Episodic Mood disorders (20 sources) Major depressive disorder, recurrent severe without psychotic features; Translations: [Recurrent major depression] Onset: 07-22-2013 Resolved: 03-18-2024 Chronic Nervous system congenital anomalies (20 sources) Encephalocele; Translations: [Encephalocele, unspecified] Onset: 07-27-2016 Resolved: 03-18-2024 09-29-2016 Chronic Osteoarthritis (18 sources) Osteoarthritis of knee; Translations: [Osteoarthritis of knee, unspecified] Onset: 03-18-2024 Resolved: 03-18-2024 03-18-2024 Chronic Other and unspecified benign neoplasm (1 source) Lipoma of skin; Translations: [Lipoma of other skin and subcutaneous tissue] Onset: 05-01-2016 Episodic Other and unspecified benign neoplasm (1 source) Lipoma of skin and subcutaneous tissue of trunk; Translations: [Benign lipomatous neoplasm of skin and subcutaneous tissue of trunk] Onset: 09-30-2018 Episodic Other and unspecified benign neoplasm (1 source) Lipoma (clinical); Translations: [Lipoma of other specified sites] Onset: 08-30-2015 Episodic Other and unspecified benign neoplasm (2 sources) Personal history of colonic polyps; Translations: [Personal history of colonic polyps] Onset: 01-08-2024 Episodic Other and unspecified benign neoplasm (1 source) Polyp of colon; Translations: [Polyp of colon] Onset: 01-28-2024 Episodic Other connective tissue disease (1 source) Muscle pain; Translations: [MYALGIA, UNSPECIFIED SITE] Onset: 08-13-2018 Episodic Other connective tissue disease (1 source) Lateral epicondylitis; Translations: [Lateral epicondylitis, left elbow] Onset: 05-21-2019 Episodic Other connective tissue disease (1 source) Medial epicondylitis; Translations: [Medial epicondylitis, unspecified elbow] Onset: 07-30-2014 Episodic Other ear and sense organ disorders (18 sources) Otorrhea; Translations: [Otorrhea, unspecified ear] Onset: 03-18-2024 Resolved: 03-18-2024 03-18-2024 Episodic Other lower respiratory disease (1 source) Chronic cough; Translations: [Chronic cough] Onset: 03-17-2018 Episodic Other lower respiratory disease (20 sources) Snoring; Translations: [Snoring] Onset: 02-13-2024 02-13-2024 Episodic Other nervous system disorders (20 sources) Cerebrospinal fluid leak; Translations: [CSF leak] Onset: 07-27-2016 Resolved: 03-18-2024 09-29-2016 Episodic Other nervous system disorders (1 source) Tremor; Translations: [Tremor, unspecified] Onset: 05-21-2019 Episodic Other nervous system disorders (18 sources) Paresthesia; Translations: [Paresthesia of skin] Onset: 02-13-2024 02-13-2024 Episodic Other nervous system disorders (20 sources) Numbness; Translations: [Anesthesia of skin] Onset: 02-13-2024 02-13-2024 Episodic Other non-traumatic joint disorders (4 sources) Pain in left knee; Translations: [PAIN IN LEFT KNEE] Onset: 06-29-2022 Episodic Other non-traumatic joint disorders (1 source) Joint pain; Translations: [Pain in unspecified joint] Onset: 08-13-2018 Episodic Other nutritional; endocrine; and metabolic disorders (2 sources) Abnormal weight loss; Translations: [Abnormal weight loss] Onset: 03-20-2018 Episodic Other nutritional; endocrine; and metabolic disorders (1 source) Body mass index 25-29 - overweight; Translations: [Body mass index 28.0-28.9, adult] Onset: 03-26-2014 Episodic Other nutritional; endocrine; and metabolic disorders (1 source) Loss of appetite; Translations: [Anorexia] Onset: 03-20-2018 Episodic Other skin disorders (1 source) Mass of thoracic structure; Translations: [Swelling, mass, or lump in chest] Onset: 06-03-2018 Episodic Other skin disorders (1 source) Epidermoid cyst; Translations: [Epidermal cyst] 05-13-2024 Episodic Other skin disorders (1 source) Epidermoid cyst of skin of chest; Translations: [Epidermal cyst] 06-24-2024 Episodic Otitis media and related conditions (20 sources) Otosclerosis; 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] Onset: 02-25-2015 Resolved: 03-18-2024 03-18-2024 Episodic Pancreatic disorders (not diabetes) (2 sources) Disorder of pancreas; Translations: [Other specified disease of pancreas] Onset: 04-03-2018 Episodic Residual codes; unclassified (1 source) Tobacco user; Translations: [Tobacco use] Onset: 01-11-2018 Episodic Spondylosis; intervertebral disc disorders; other back problems (20 sources) Cervical spondylosis without myelopathy; Translations: [Spondylosis without myelopathy or radiculopathy, cervical region] Onset: 02-12-2017 Resolved: 03-18-2024 03-18-2024 Chronic Spondylosis; intervertebral disc disorders; other back problems (20 sources) Neck pain; Translations: [Cervicalgia] Onset: 07-08-2013 Resolved: 03-18-2024 07-08-2013 Episodic Unclassified (13 sources) Abnormal findings on diagnostic imaging of other specified body structures; Translations: [Blood chemistry abnormal] Onset: 04-23-2018 Episodic Results Test Name Value Interpretation Reference Range [id number] [Mass/Vol] 1.7 ug/mL Normal <3.1 [facility] Comment on above: Order Comment: Johana baldwin Type: BLOOD SPECIMENOrdering Facility: [facility] Address: [address] [place] [address] Result Comment: Beta -2 Microglobulin test is performed using the [employer] immunoturbidimetric method. Results obtained with different methods or kits cannot be used interchangeably. Performed By: #### 1 952-1, 2885-2 ####[facility] LABCLIA [id number] [place] [address] [place] CBC W Auto Differential pane l (Bld)on 11-12-2024 Basophils (Bld) [#/Vol] 0.05 10*3/uL Normal <0.11 [facility] Comment on above: Order Comment: Speci men Type: BLOOD SPECIMENOrdering Facility: [facility] Address: [address] [place] [address] Performed By: #### 5 7021-8 ####[facility] LABCLIA [id number] [place] [address] Basophils/100 WBC (Bld) 0.7 % Normal [facility] Comment on above: Order Comment: Speci men Type: BLOOD SPECIMENOrdering Facility: [facility] Address: [address] [place] [address] Performed By: #### 5 7021-8 ####[facility] LABCLIA [id number] [place] [address] Differential cell count method Nom (Bld) Auto Normal [facility] Comment on above: Order Comment: Speci men Type: BLOOD SPECIMENOrdering Facility: [facility] Address: [address] [place] [address] Performed By: #### 5 7021-8 ####[facility] LABCLIA [id number] [place] [address] Eosinophils (Bld) [#/Vol] 0.43 10*3/uL Normal <0.46 [facility] Comment on above: Order Comment: Speci men Type: BLOOD SPECIMENOrdering Facility: [facility] Address: [address] [place] [address] Performed By: #### 5 7021-8 ####[facility] LABCLIA [id number] [place] [address] Eosinophils/100 WBC (Bld) 5.9 % Normal [facility] Comment on above: Order Comment: Speci men Type: BLOOD SPECIMENOrdering Facility: [facility] Address: [address] [place] [address] Performed By: #### 5 7021-8 ####[facility] LABCLIA [id number] [place] [address] Erythrocyte distribution width (RBC) [Ratio] 13.2 % Normal 11.5-15.0 [facility] Comment on above: Order Comment: Speci men Type: BLOOD SPECIMENOrdering Facility: [facility] Address: [address] [place] [address] Performed By: #### 5 7021-8 ####[facility] LABCLIA [id number] [place] [address] Hematocrit (Bld) [Volume fraction] 39.8 % Normal 39.0-51.0 [facility] Comment on above: Order Comment: Speci men Type: BLOOD SPECIMENOrdering Facility: [facility] Address: [address] [place] [address] Performed By: #### 5 7021-8 ####[facility] LABCLIA [id number] [place] [address] Hemoglobin (Bld) [Mass/Vol] 13.9 g/dL Normal 13.0-17.0 [facility] Comment on above: Order Comment: Speci men Type: BLOOD SPECIMENOrdering Facility: [facility] Address: [address] [place] [address] Performed By: #### 5 7021-8 ####[facility] LABCLIA [id number] [place] [address] Immature granulocytes (Bld) [#/Vol] 10*3/uL Normal <0.10 [facility] Comment on above: Order Comment: Speci men Type: BLOOD SPECIMENOrdering Facility: [facility] Address: [address] [place] [address] Performed By: #### 5 7021-8 ####[facility] LABCLIA [id number] [place] [address] Immature granulocytes/100 WBC (Bld) 0.3 % Normal [facility] Comment on above: Order Comment: Speci men Type: BLOOD SPECIMENOrdering Facility: [facility] Address: [address] [place] [address] Performed By: #### 5 7021-8 ####[facility] LABCLIA [id number] [place] [address] Lymphocytes (Bld) [#/Vol] 1.01 10*3/uL Normal 1.00-4.00 [facility] Comment on above: Order Comment: Speci men Type: BLOOD SPECIMENOrdering Facility: [facility] Address: [address] [place] [address] Performed By: #### 5 7021-8 ####[facility] LABCLIA [id number] [place] [address] Lymphocytes/100 WBC (Bld) 13.7 % Normal [facility] Comment on above: Order Comment: Speci men Type: BLOOD SPECIMENOrdering Facility: [facility] Address: [address] [place] [address] Performed By: #### 5 7021-8 ####[facility] LABIA [id number] [place] [address] MCH (RBC) [Entitic mass] 30.5 pg Normal 26.0-34.0 [facility] Comment on above: Order Comment: Speci men Type: BLOOD SPECIMENOrdering Facility: [facility] Address: [address] [place] [address] Performed By: #### 5 7021-8 ####[facility] LABCLIA [id number] [place] [address] MCHC (RBC) [Mass/Vol] 34.9 g/dL Normal 30.5-36.0 [facility] Comment on above: Order Comment: Speci men Type: BLOOD SPECIMENOrdering Facility: [facility] Address: [address] [place] [address] Performed By: #### 5 7021-8 ####[facility] LABCLIA [id number] [place] [address] MCV (RBC) [Entitic vol] 87.3 fL Normal 80.0-100.0 [facility] Comment on above: Order Comment: Speci men Type: BLOOD SPECIMENOrdering Facility: [facility] Address: [address] [place] [address] Performed By: #### 5 7021-8 ####[facility] LABCLIA [id number] [place] [address] Monocytes (Bld) [#/Vol] 0.60 10*3/uL Normal <0.87 [facility] Comment on above: Order Comment: Speci men Type: BLOOD SPECIMENOrdering Facility: [facility] Address: [address] [place] [address] Performed By: #### 5 7021-8 ####[facility] LABCLIA [id number] [place] [address] Monocytes/100 WBC (Bld) 8.2 % Normal [facility] Comment on above: Order Comment: Speci men Type: BLOOD SPECIMENOrdering Facility: [facility] Address: [address] [place] [address] Performed By: #### 5 7021-8 ####[facility] LABCLIA [id number] [place] [address] Neutrophils (Bld) [#/Vol] 5.24 10*3/uL Normal 1.45-7.50 [facility] Comment on above: Order Comment: Speci men Type: BLOOD SPECIMENOrdering Facility: [facility] Address: [address] [place] [address] Performed By: #### 5 7021-8 ####[facility] LABCLIA [id number] [place] [address] Neutrophils/100 WBC (Bld) 71.2 % Normal [facility] Comment on above: Order Comment: Speci men Type: BLOOD SPECIMENOrdering Facility: [facility]. [facility] Address: [address] [place] [address] Performed By: #### 5 7021-8 ####[facility] LABCLIA [id number] [place] [address] Nucleated RBC (Bld) [#/Vol] 10*3/uL Normal <0.01 [facility] Comment on above: Order Comment: Speci men Type: BLOOD SPECIMENOrdering Facility: [facility] Address: [address] [place] [address] Performed By: #### 5 7021-8 ####[facility] LABCLIA [id number] [place] [address] Nucleated RBC/100 WBC (Bld) [Ratio] 0.0 /100 WBC Normal [facility] Comment on above: Order Comment: Speci men Type: BLOOD SPECIMENOrdering Facility: [facility] Address: [address] [place] [address] Performed By: #### 5 7021-8 ####[facility] LABCLIA [id number] [place] [address] Platelet mean volume (Bld) [Entitic vol] 9.7 fL Normal 9.0-12.7 [facility] Comment on above: Order Comment: Speci men Type: BLOOD SPECIMENOrdering Facility: [facility] Address: [address] [place] [address] Performed By: #### 5 7021-8 ####[facility] LABCLIA [id number] [place] [address] Platelets (Bld) [#/Vol] 244 10*3/uL Normal 150-400 [facility] Comment on above: Order Comment: Speci men Type: BLOOD SPECIMENOrdering Facility: [facility] Address: [address] [place] [address] Performed By: #### 5 7021-8 ####[facility] LABCLIA [id number] [place] [address] RBC (Bld) [#/Vol] 4.56 10*6/uL Normal 4.20-6.00 [facility] Comment on above: Order Comment: Speci men Type: BLOOD SPECIMENOrdering Facility: [facility] Address: [address] [place] [address] Performed By: #### 5 7021-8 ####[facility] LABCLIA [id number] [place] [address] WBC (Bld) [#/Vol] 7.35 10*3/uL Normal 3.70-11.00 [facility] Comment on above: Order Comment: Speci men Type: BLOOD SPECIMENOrdering Facility: [facility] Address: [address] [place] [address] Performed By: #### 5 7021-8 ####[facility] LABCLIA [id number] [place] [address] CNOVSPon 11-12-2024 CNOVSP Normal [facility] metabolic 2000 panelon 11-12-2024 Albumin [Mass/Vol] 4.3 g/dL Normal 3.9-4.9 [facility] Comment on above: Order Comment: Speci men Type: BLOOD SPECIMENOrdering Facility: [facility] Address: [address] [place] [address] Performed By: #### 2 4323-8, 3084-1 ####[facility] LABCLIA [id number] [place] [address] ALP [Catalytic activity/Vol] 93 U/L Normal 38-113 [facility] Comment on above: Order Comment: Speci men Type: BLOOD SPECIMENOrdering Facility: [facility] Address: [address] [place] [address] Performed By: #### 2 4323-8, 308-1 ####[facility] LABCLIA [id number] [place] [address] ALT [Catalytic activity/Vol] 13 U/L Normal 10-54 [facility] Comment on above: Order Comment: Speci men Type: BLOOD SPECIMENOrdering Facility: [facility] Address: [address] [place] [address] Performed By: #### 2 4323-8, 3084-1 ####[facility] LABCLIA [id number] [place] [address] Anion gap [Moles/Vol] 11 mmol/L Normal 8-15 [facility] Comment on above: Order Comment: Speci men Type: BLOOD SPECIMENOrdering Facility: [facility] Address: [address] [place] [address] Performed By: #### 2 4323-8, 308-1 ####[facility] LABCLIA [id number] [place] [address] AST [Catalytic activity/Vol] 11 U/L Low 14-40 [facility] Comment on above: Order Comment: Speci men Type: BLOOD SPECIMENOrdering Facility: [facility] Address: [address] [place] [address] Performed By: #### 2 4323-8, 3083- ####[facility] LABCLIA [id number] [place] [address] Bilirubin [Mass/Vol] 0.2 mg/dL Normal 0.2-1.3 [facility] Comment on above: Order Comment: Speci men Type: BLOOD SPECIMENOrdering Facility: [facility] Address: [address] [place] [address] Performed By: #### 2 4323-8, 3083- ####[facility] LABCLIA [id number] [place] [address] Calcium [Mass/Vol] 9.5 mg/dL Normal 8.5-10.2 [facility] Comment on above: Order Comment: Speci men Type: BLOOD SPECIMENOrdering Facility: [facility] Address: [address] [place], [place] [address] Performed By: #### 2 4323-8, 3083- ####[facility] LABCLIA [id number] [place] [address] Chloride [Moles/Vol] 104 mmol/L Normal 98-107 [facility] Comment on above: Order Comment: Speci men Type: BLOOD SPECIMENOrdering Facility: [facility] Address: [address] [place] [address] Performed By: #### 2 4323-8, 3083-10 ####[facility] LABCLIA [id number] [place] [address] CO2 [Moles/Vol] 25 mmol/L Normal 22-30 [facility] Comment on above: Order Comment: Speci men Type: BLOOD SPECIMENOrdering Facility: [facility] Address: [address] [place] [address] Performed By: #### 2 4323-8, 3083-10 ####[facility] LABCLIA [id number] [place] [address] Creatinine [Mass/Vol] 0.92 mg/dL Normal 0.73-1.22 [facility] Comment on above: Order Comment: Speci men Type: BLOOD SPECIMENOrdering Facility: [facility] Address: [address] [place] [address] Performed By: #### 2 4323-8, 3083-10 ####[facility] LABIA [id number] [place] [address] Creatinine and Glomerular filtration rate.predicted panel (S/P/Bld) 95 mL/min/1.73m??? Normal >=60 [facility] Comment on above: Order Comment: Speci men Type: BLOOD SPECIMENOrdering Facility: [facility] Address: [address] [place] [address] Result Comment: Eladia mated Glomerular Filtration Rate (eGFR) is calculated using the 2020 CKD-EPI creatinine equation. This equation utilizes serum creatinine, sex, and age as parameters. The creatinine assay has traceable calibration to isotope dilution-mass spectrometry. Refer to KDIGO guidelines for clinical interpretation. In patients with unstable renal function, e.g. those with acute kidney injury, the eGFR may not accurately reflect actual GFR. Performed By: #### 2 4323-8, 3083-10 ####[facility] LABCLIA [id number] [place] [address] Glucose [Mass/Vol] 131 mg/dL High 74-99 [facility] Comment on above: Order Comment: Speci men Type: BLOOD SPECIMENOrdering Facility: [facility] Address: [address] [place], [place] [address] Result Comment: The [place] Diabetes Association (ADA) provides guidance for cutoff values for fasting glucose and random glucose. The ADA defines fasting as no caloric intake for at least 8 hours. Fasting plasma glucose results between 100 to 125 mg/dL indicate increased risk for diabetes (prediabetes).Fasting plasma glucose results greater than or equal to 126 mg/dL meet the criteria for diagnosis of diabetes. In the absence of unequivocal hyperglycemia, results should be confirmed by repeat testing. In a patient with classic symptoms of hyperglycemia or hyperglycemic crisis, random plasma glucose results greater than or equal to 200 mg/dL meet the criteria for diagnosis of diabetes.Reference: Standards of Medical Care in Diabetes 2016, [place] [employer]. Diabetes Care. 2016.39(Suppl 1). Performed By: #### 2 4323-8, 3083-10 ####[facility] LABCLIA [id number] [place] [address] Potassium [Moles/Vol] 4.1 mmol/L Normal 3.7-5.1 [facility] Comment on above: Order Comment: Speci men Type: BLOOD SPECIMENOrdering Facility: [facility] Address: [address] [place] [address] Performed By: #### 2 4323-8, 3083-10 ####[facility] LABCLIA [id number] [place] [address] Protein [Mass/Vol] 6.7 g/dL Normal 6.3-8.0 [facility] Comment on above: Order Comment: Speci men Type: BLOOD SPECIMENOrdering Facility: [facility] Address: [address] [place] [address] Performed By: #### 2 4323-8, 3083-10 ####[facility] LABCLIA [id number] [place] [address] Sodium [Moles/Vol] 140 mmol/L Normal 136-144 [facility] Comment on above: Order Comment: Speci men Type: BLOOD SPECIMENOrdering Facility: [facility] Address: [address] [place] [address] Performed By: #### 2 4323-8, 3084-1 ####[facility] LABCLIA [id number] [place] [address] Urea nitrogen [Mass/Vol] 26 mg/dL High 9-24 [facility] Comment on above: Order Comment: Speci men Type: BLOOD SPECIMENOrdering Facility: [facility] Address: [address] [place] [address] Performed By: #### 2 4323-8, 3084-1 ####[facility] LABCLIA [id number] [place] [address] IMMUNOFIXATION SCREEN, SERUM on 11-12-2024 INTERPRETATION (MPA) Atypical restricted bands are present in the IgM and kappa regions. Consistent with IgM kappa monoclonal gammopathy. Normal [facility] Comment on above: Order Comment: Speci men Type: BLOOD SPECIMENOrdering Facility: [facility] Address: [address] [place] [address] Performed By: #### I FESC ####[facility] LABCLIA [id number] [address] [address] [place] MPA RESULT M protein is present. Abnormal No M protein is identified. [facility] Comment on above: Order Comment: Speci men Type: BLOOD SPECIMENOrdering Facility: [facility] Address: [address] [place] [address] Performed By: #### I FESC ####[facility] LABCLIA [id number] [address] [address] [place] STAFF REVIEW (MPA) Reviewed by Dr. Jimmie De León MD [facility] Comment on above: Order Comment: Speci men Type: BLOOD SPECIMENOrdering Facility: [facility] Address: [address] [place] [address] Performed By: #### I FESC ####[facility] LABCLIA [id number] [place] [address] [place] IMMUNOGLOBULINS,IGG,IGA,IGMo n 11-12-2024 IgA [Mass/Vol] 79 mg/dL Normal 70-400 [facility] Comment on above: Order Comment: Speci men Type: BLOOD SPECIMENOrdering Facility: [facility] Address: [address] [place] [address] Performed By: #### S ERIMM ####[facility] LABCLIA [id number] [place] [address] [place] IgG [Mass/Vol] 574 mg/dL Low 700-1600 [facility] Comment on above: Order Comment: Speci men Type: BLOOD SPECIMENOrdering Facility: [facility] Address: [address] [place] [address] Performed By: #### S ERIMM ####[facility] LABCLIA [id number] [place] [address] [place] IgM [Mass/Vol] 97 mg/dL Normal 40-230 [facility] Comment on above: Order Comment: Speci men Type: BLOOD SPECIMENOrdering Facility: [facility] Address: [address] [place] [address] Performed By: #### S ERIMM ####[facility] LABCLIA [id number] [place] [address] [place] KAPPA/KING,FREE,SERon 2024 Immunoglobulin light chains.kappa.free (S) [Mass/Vol] 16.2 mg/L Normal 3.3-19.4 [facility] Comment on above: Order Comment: Speci men Type: BLOOD SPECIMENOrdering Facility: [facility] Address: [address] [place] [address] Result Comment: Rare ly, increased serum free light chains levels may not be detected or accurately quantified due to prozone phenomenon or in high viscosity samples using this immunoturbidimetric assay. Correlation with other laboratory results and clinical findings is recommended.The [place] Free Light Chain was performed using the Binding Site Optilite immunoturbidimetric method. Result obtained with different assay methods or kits cannot be used interchangeably. Performed By: #### K LFRS ####[facility] LABCLIA [id number] [place] [address] [place] Immunoglobulin light chains.kappa/Immunog lobulin light chains.lambda (S) [Mass ratio] 1.57 Normal 0.26-1.65 [facility] Comment on above: Order Comment: Speci men Type: BLOOD SPECIMENOrdering Facility: [facility] Address: [address] [place] [address] Performed By: #### K LFRS ####[facility] LABCLIA [id number] [address] [place] Immunoglobulin light chains.lambda.free [Mass/Vol] 10.3 mg/L Normal 5.7-26.3 [facility] Comment on above: Order Comment: Speci men Type: BLOOD SPECIMENOrdering Facility: [facility] Address: [address] [place] [address] Result Comment: Rare ly, increased serum free light chains levels may not be detected or accurately quantified due to prozone phenomenon or in high viscosity samples using this immunoturbidimetric assay. Correlation with other laboratory results and clinical findings is recommended.The [place] Free Light Chain was performed using the Binding Site Optilite immunoturbidimetric method. Result obtained with different assay methods or kits cannot be used interchangeably. Performed By: #### K LFRS ####[facility] LABCLIA [id number] [place] [address] [place] No Panel Informationon 11-12 Configuration B Settings: 3.2 with range 3.0-4.0 [facility] [employer] [facility] [employer] PROTEIN ELECTROPHORESIS SERU M (P)on 11-12-2024 Albumin [Mass/Vol] 4.38 g/dL Normal 3.43-5.41 [facility] Comment on above: Order Comment: Speci men Type: BLOOD SPECIMENOrdering Facility: [facility] Address: [address] [place] [address] Performed By: #### L [id number] ####[facility] LABCLIA [id number] [place] [address] [place] Alpha 1 globulin Elph [Mass/Vol] 0.34 g/dL Normal 0.18-0.43 [facility] Comment on above: Order Comment: Speci men Type: BLOOD SPECIMENOrdering Facility: [facility] Address: [address] [place] [address] Performed By: #### L [id number] ####[facility] LABIA [id number] [place] [address] [place] Alpha 2 globulin Elph [Mass/Vol] 0.69 g/dL Normal 0.42-0.98 [facility] Comment on above: Order Comment: Speci men Type: BLOOD SPECIMENOrdering Facility: [facility] Address: [address] [place] [address] Performed By: #### L [id number] ####[facility] LABIA [id number] [place] [address] [place] Beta globulin Elph [Mass/Vol] 0.76 g/dL Normal 0.61-1.17 [facility] Comment on above: Order Comment: Speci men Type: BLOOD SPECIMENOrdering Facility: [facility] Address: [address] [place] [address] Performed By: #### L [id number] ####[facility] LABIA [id number] [place] [address] [place] Gamma globulin Elph [Mass/Vol] 0.54 g/dL Normal 0.53-1.51 [facility] Comment on above: Order Comment: Speci men Type: BLOOD SPECIMENOrdering Facility: [facility] Address: [address] [place] [address] Performed By: #### L [id number] ####[facility] LABCLIA [id number] [place] [address] [place] M-PROTEIN LOCATION Normal [facility] Comment on above: Order Comment: Speci men Type: BLOOD SPECIMENOrdering Facility: [facility] Address: [address] [place] [address] Result Comment: Not Applicable. Performed By: #### L [id number] ####[facility] LABCLIA [id number] [place] [address] [place] Protein Fractions [Interp] No definitive M protein is identified on protein electrophoresis. Normal No definitive M protein is identified on protein electrophor esis. [facility] Comment on above: Order Comment: Speci men Type: BLOOD SPECIMENOrdering Facility: [facility] Address: [address] [place] [address] Performed By: #### L [id number] ####[facility] LABIA [id number] [place] [address] [place] Protein.monoclonal Elph [Mass/Vol] 0.00 g/dL Normal <=0.00 [facility] Comment on above: Order Comment: Speci men Type: BLOOD SPECIMENOrdering Facility: [facility] Address: [address] [place] [address] Performed By: #### L [id number] ####[facility] LABIA [id number] [place] [address] [place] SPE STAFF REVIEW Reviewed by Dr. Jimmie De León MD Normal [facility] Comment on above: Order Comment: Speci men Type: BLOOD SPECIMENOrdering Facility: [facility] Address: [address] [place] [address] Performed By: #### L [id number] ####[facility] LABIA [id number] [place] [address] [place] Prot SerPl-mCncon 11-12-2024 Protein [Mass/Vol] 6.4 g/dL Normal 6.3-8.0 [facility] Comment on above: Order Comment: Speci men Type: BLOOD SPECIMENOrdering Facility: [facility] Address: [address] [place] [address] Performed By: #### 1 952-1, 2885-2 ####[facility] LABCLIA [id number] [facility] [id number] [address] [place] Urate SerPl-mCncon Urate [Mass/Vol] 4.5 mg/dL Normal 4.0-8.1 [facility] Comment on above: Order Comment: Speci men Type: BLOOD SPECIMENOrdering Facility: [facility] Address: [address] [place] [address] Performed By: #### 2 4323-8, 3084-1 ####[facility] LABCLIA [id number] [place] [id number] CNPNon 11-05-2024 CNPN Normal [facility] Basophils Auto (Bld) [#/Vol] on 09-17-2024 Basophils (Bld) [#/Vol] Automated basophil count <0.11 [facility] Basophils/100 WBC Auto (Bld) on 09-17-2024 Basophils/100 WBC (Bld) Automated basophil % [facility] Blood manual differential co mment interpretation narrativeon 09-17-2024 Manual differential comment Chapin (Bld) [Interp] Blood manual differential comment interpretation narrative [facility] CBC W Auto Differential pane l (Bld)on 09-17-2024 Basophils (Bld) [#/Vol] 0.03 10*3/uL Normal <0.11 [facility] Comment on above: Order Comment: Speci men Type: BLOOD SPECIMENOrdering Facility: [facility] Address: [address] [place] [address] Performed By: #### 5 7021-8 ####[facility] LABCLIA [id number] [place] [address] Basophils/100 WBC (Bld) 0.4 % Normal [facility] Comment on above: Order Comment: Speci men Type: BLOOD SPECIMENOrdering Facility: [facility] Address: [address] [place] [address] Performed By: #### 5 7021-8 ####[facility] LABCLIA [id number] [place] [address] Differential cell count method Nom (Bld) Auto Normal [facility] Comment on above: Order Comment: Speci men Type: BLOOD SPECIMENOrdering Facility: [facility] Address: [address] [place] [address] Performed By: #### 5 7021-8 ####[facility] LABCLIA [id number] [place] [address] Eosinophils (Bld) [#/Vol] 0.20 10*3/uL Normal <0.46 [facility] Comment on above: Order Comment: Speci men Type: BLOOD SPECIMENOrdering Facility: [facility] Address: [address] [place] [address] Performed By: #### 5 7021-8 ####[facility] LABCLIA [id number] [place] [address] Eosinophils/100 WBC (Bld) 2.9 % Normal [facility] Comment on above: Order Comment: Speci men Type: BLOOD SPECIMENOrdering Facility: [facility] Address: [address] [place] [address] Performed By: #### 5 7021-8 ####[facility] LABCLIA [id number] [place] [address] Erythrocyte distribution width (RBC) [Ratio] 12.7 % Normal 11.5-15.0 [facility] Comment on above: Order Comment: Speci men Type: BLOOD SPECIMENOrdering Facility: [facility] Address: [address] [place] [address] Performed By: #### 5 7021-8 ####[facility] LABCLIA [id number] [place] [address] Hematocrit (Bld) [Volume fraction] 41.7 % Normal 39.0-51.0 [facility] Comment on above: Order Comment: Speci men Type: BLOOD SPECIMENOrdering Facility: [facility] Address: [address] [place] [address] Performed By: #### 5 7021-8 ####[facility] LABCLIA [id number] [place] [address] Hemoglobin (Bld) [Mass/Vol] 14.4 g/dL Normal 13.0-17.0 [facility] Comment on above: Order Comment: Speci men Type: BLOOD SPECIMENOrdering Facility: [facility] Address: [address] [place] [address] Performed By: #### 5 7021-8 ####[facility] LABIA [id number] [place] [address] Immature granulocytes (Bld) [#/Vol] 0.03 10*3/uL Normal <0.10 [facility] Comment on above: Order Comment: Speci men Type: BLOOD SPECIMENOrdering Facility: [facility] Address: [address] [place] [address] Performed By: #### 5 7021-8 ####[facility] LABCLIA [id number] [place] [address] Immature granulocytes/100 WBC (Bld) 0.4 % Normal [facility] Comment on above: Order Comment: Speci men Type: BLOOD SPECIMENOrdering Facility: [facility] Address: [address] [place] [address] Performed By: #### 5 7021-8 ####[facility] LABIA [id number] [place] [address] Lymphocytes (Bld) [#/Vol] 0.88 10*3/uL Low 1.00-4.00 [facility] Comment on above: Order Comment: Speci men Type: BLOOD SPECIMENOrdering Facility: [facility] Address: [address] [place] [address] Performed By: #### 5 7021-8 ####[facility] LABCLIA [id number] [place] [address] Lymphocytes/100 WBC (Bld) 12.7 % Normal [facility] Comment on above: Order Comment: Speci men Type: BLOOD SPECIMENOrdering Facility: [facility] Address: [address] [place] [address] Performed By: #### 5 7021-8 ####[facility] LABCLIA [id number] [place] [address] MCH (RBC) [Entitic mass] 30.4 pg Normal 26.0-34.0 [facility] Comment on above: Order Comment: Speci men Type: BLOOD SPECIMENOrdering Facility: [facility] Address: [address] [place] [address] Performed By: #### 5 7021-8 ####[facility] LABCLIA [id number] [place] [address] MCHC (RBC) [Mass/Vol] 34.5 g/dL Normal 30.5-36.0 [facility] Comment on above: Order Comment: Speci men Type: BLOOD SPECIMENOrdering Facility: [facility] Address: [address] [place] [address] Performed By: #### 5 7021-8 ####[facility] LABCLIA [id number] [place] [address] MCV (RBC) [Entitic vol] 88.0 fL Normal 80.0-100.0 [facility] Comment on above: Order Comment: Speci men Type: BLOOD SPECIMENOrdering Facility: [facility] Address: [address] [place] [address] Performed By: #### 5 7021-8 ####[facility] LABCLIA [id number] [place] [address] Monocytes (Bld) [#/Vol] 0.58 10*3/uL Normal <0.87 [facility] Comment on above: Order Comment: Speci men Type: BLOOD SPECIMENOrdering Facility: [facility] Address: [address] [place] [address] Performed By: #### 5 7021-8 ####[facility] LABCLIA [id number] [place] [address] Monocytes/100 WBC (Bld) 8.4 % Normal [facility] Comment on above: Order Comment: Speci men Type: BLOOD SPECIMENOrdering Facility: [facility] Address: [address] [place] [address] Performed By: #### 5 7021-8 ####[facility] LABCLIA [id number] [place] [address] Neutrophils (Bld) [#/Vol] 5.19 10*3/uL Normal 1.45-7.50 [facility] Comment on above: Order Comment: Speci men Type: BLOOD SPECIMENOrdering Facility: [facility] Address: [address] [place] [address] Performed By: #### 5 7021-8 ####[facility] LABCLIA [id number] [place] [address] Neutrophils/100 WBC (Bld) 75.2 % Normal [facility] Comment on above: Order Comment: Speci men Type: BLOOD SPECIMENOrdering Facility: [facility] Address: [address] [place] [address] Performed By: #### 5 7021-8 ####[facility] LABCLIA [id number] [place] [address] Nucleated RBC (Bld) [#/Vol] 10*3/uL Normal <0.01 [facility] Comment on above: Order Comment: Speci men Type: BLOOD SPECIMENOrdering Facility: [facility] Address: [address] [place] [address] Performed By: #### 5 7021-8 ####[facility] LABCLIA [id number] [place] [address] Nucleated RBC/100 WBC (Bld) [Ratio] 0.0 /100 WBC Normal [facility] Comment on above: Order Comment: Speci men Type: BLOOD SPECIMENOrdering Facility: [facility] Address: [address] [place] [address] Performed By: #### 5 7021-8 ####[facility] LABCLIA [id number] [place] [address] Platelet mean volume (Bld) [Entitic vol] 9.6 fL Normal 9.0-12.7 [facility] Comment on above: Order Comment: Speci men Type: BLOOD SPECIMENOrdering Facility: [facility] Address: [address] [place] [address] Performed By: #### 5 7021-8 ####[facility] LABCLIA [id number] [place] [address] Platelets (Bld) [#/Vol] 269 10*3/uL Normal 150-400 [facility] Comment on above: Order Comment: Speci men Type: BLOOD SPECIMENOrdering Facility: [facility] Address: [address] [place] [address] Performed By: #### 5 7021-8 ####[facility] LABCLIA [id number] [place] [address] RBC (Bld) [#/Vol] 4.74 10*6/uL Normal 4.20-6.00 [facility] Comment on above: Order Comment: Speci men Type: BLOOD SPECIMENOrdering Facility: [facility] Address: [address] [place] [address] Performed By: #### 5 7021-8 ####[facility] LABCLIA [id number] [place] [address] WBC (Bld) [#/Vol] 6.91 10*3/uL Normal 3.70-11.00 [facility] Comment on above: Order Comment: Speci men Type: BLOOD SPECIMENOrdering Facility: [facility] Address: [address] [place] [address] Performed By: #### 5 7021-8 ####[facility] LABCLIA [id number] [place] [address] CNOVSPon 09-17-2024 CNOVSP Normal [facility] metabolic 2000 panelon 09-17-2024 Albumin [Mass/Vol] 4.4 g/dL Normal 3.9-4.9 [facility] Comment on above: Order Comment: Speci men Type: BLOOD SPECIMENOrdering Facility: [facility] Address: [address] [place] [address] Performed By: #### 2 4323-8 ####[facility] LABCLIA [id number] [place] [address] ALP [Catalytic activity/Vol] 99 U/L Normal 38-113 [facility] Comment on above: Order Comment: Speci men Type: BLOOD SPECIMENOrdering Facility: [facility] Address: [address] [place] [address] Performed By: #### 2 4323-8 ####[facility] LABCLIA [id number] [place] [address] ALT [Catalytic activity/Vol] 12 U/L Normal 10-54 [facility] Comment on above: Order Comment: Speci men Type: BLOOD SPECIMENOrdering Facility: [facility] Address: [address] [place] [address] Performed By: #### 2 4323-8 ####[facility] LABCLIA [id number] [place] [address] Anion gap [Moles/Vol] 11 mmol/L Normal 8-15 [facility] Comment on above: Order Comment: Speci men Type: BLOOD SPECIMENOrdering Facility: [facility] Address: [address] [place] [address] Performed By: #### 2 4323-8 ####[facility] LABCLIA [id number] [place] [address] AST [Catalytic activity/Vol] 9 U/L Low 14-40 [facility] Comment on above: Order Comment: Speci men Type: BLOOD SPECIMENOrdering Facility: [facility] Address: [address] [place] [address] Performed By: #### 2 4323-8 ####[facility] LABCLIA [id number] [place] [address] Bilirubin [Mass/Vol] 0.3 mg/dL Normal 0.2-1.3 [facility] Comment on above: Order Comment: Speci men Type: BLOOD SPECIMENOrdering Facility: [facility] Address: [address] [place] [address] Performed By: #### 2 4323-8 ####[facility] LABCLIA [id number] [place] [address] Calcium [Mass/Vol] 9.4 mg/dL Normal 8.5-10.2 [facility] Comment on above: Order Comment: Speci men Type: BLOOD SPECIMENOrdering Facility: [facility] Address: [address] [place] [address] Performed By: #### 2 4323-8 ####[facility] LABCLIA [id number] [place] [address] Chloride [Moles/Vol] 103 mmol/L Normal 98-107 [facility] Comment on above: Order Comment: Speci men Type: BLOOD SPECIMENOrdering Facility: [facility] Address: [address] [place] [address] Performed By: #### 2 4323-8 ####[facility] LABCLIA [id number] [place] [address] CO2 [Moles/Vol] 24 mmol/L Normal 22-30 [facility] Comment on above: Order Comment: Speci men Type: BLOOD SPECIMENOrdering Facility: [facility] Address: [address] [id number] Performed By: #### 2 4323-8 ####[facility] LABCLIA [id number] [place] [address] Creatinine [Mass/Vol] 0.86 mg/dL Normal 0.73-1.22 [facility] Comment on above: Order Comment: Speci men Type: BLOOD SPECIMENOrdering Facility: [facility] Address: [address] [place] [address] Performed By: #### 2 4323-8 ####[facility] LABCLIA [id number] [place] [address] Creatinine and Glomerular filtration rate.predicted panel (S/P/Bld) 99 mL/min/1.73m??? Normal >=60 [facility] Comment on above: Order Comment: Speci men Type: BLOOD SPECIMENOrdering Facility: [facility] Address: [address] [place] [address] Result Comment: Eladia mated Glomerular Filtration Rate (eGFR) is calculated using the 2020 CKD-EPI creatinine equation. This equation utilizes serum creatinine, sex, and age as parameters. The creatinine assay has traceable calibration to isotope dilution-mass spectrometry. Refer to KDIGO guidelines for clinical interpretation. In patients with unstable renal function, e.g. those with acute kidney injury, the eGFR may not accurately reflect actual GFR. Performed By: #### 2 4323-8 ####[facility] LABCLIA [id number] [place] [address] Glucose [Mass/Vol] 160 mg/dL High 74-99 [facility] Comment on above: Order Comment: Jhonyi denny Type: BLOOD SPECIMENOrdering Facility: [facility] Address: [address] [place] [address] Result Comment: The [place] Diabetes Association (ADA) provides guidance for cutoff values for fasting glucose and random glucose. The ADA defines fasting as no caloric intake for at least 8 hours. Fasting plasma glucose results between 100 to 125 mg/dL indicate increased risk for diabetes (prediabetes).Fasting plasma glucose results greater than or equal to 126 mg/dL meet the criteria for diagnosis of diabetes. In the absence of unequivocal hyperglycemia, results should be confirmed by repeat testing. In a patient with classic symptoms of hyperglycemia or hyperglycemic crisis, random plasma glucose results greater than or equal to 200 mg/dL meet the criteria for diagnosis of diabetes.Reference: Standards of Medical Care in Diabetes 2016, [place] [employer]. Diabetes Care. 2016.39(Suppl 1). Performed By: #### 2 4323-8 ####[facility] LABCLIA [id number] [place] [address] Potassium [Moles/Vol] 4.3 mmol/L Normal 3.7-5.1 [facility] Comment on above: Order Comment: Speci men Type: BLOOD SPECIMENOrdering Facility: [facility] Address: [address] [place] [address] Performed By: #### 2 4323-8 ####[facility] LABCLIA [id number] [place] [address] Protein [Mass/Vol] 6.6 g/dL Normal 6.3-8.0 [facility] Comment on above: Order Comment: Speci men Type: BLOOD SPECIMENOrdering Facility: [facility] Address: [address] [place] [address] Performed By: #### 2 4323-8 ####[facility] LABCLIA [id number] [place] [address] Sodium [Moles/Vol] 138 mmol/L Normal 136-144 [facility] Comment on above: Order Comment: Speci men Type: BLOOD SPECIMENOrdering Facility: [facility] Address: [address] [place] [address] Performed By: #### 2 4323-8 ####[facility] LABCLIA [id number] [place] [address] Urea nitrogen [Mass/Vol] 24 mg/dL Normal 9-24 [facility] Comment on above: Order Comment: Speci men Type: BLOOD SPECIMENOrdering Facility: [facility] Address: [address] [place] [address] Performed By: #### 2 4323-8 ####[facility] LABCLIA [id number] [place] [address] Eosinophils/100 WBC Auto (Bl d)on 09-17-2024 Eosinophils/100 WBC (Bld) Automated eosinophil % [facility] Erythrocyte distribution wid th Auto (RBC) [Ratio]on 09-17-2024 Erythrocyte distribution width (RBC) [Ratio] Erythrocyte distribution width [Ratio] by Automated count 11.5-15.0 [facility] Hematocrit Auto (Bld) [Volum e fraction]on 09-17-2024 Hematocrit (Bld) [Volume fraction] Hematocrit [Volume Fraction] of Blood by Automated count 39.0-51.0 [facility] Hemoglobin [Mass/volume] in Bloodon 09-17-2024 Hemoglobin (Bld) [Mass/Vol] Hemoglobin [Mass/volume] in Blood 13.0-17.0 [facility] Laboratory - Chemistry and C hemistry - challengeon 09-17-2024 Albumin [Mass/Vol] 4.4 g/dL 3.9-4.9 [facility] ALP [Catalytic activity/Vol] 99 U/L 38-113 [facility] ALT [Catalytic activity/Vol] 12 U/L 10-54 [facility] AST [Catalytic activity/Vol] 9 U/L Low 14-40 [facility] Bilirubin [Mass/Vol] 0.3 mg/dL 0.2-1.3 [facility] Calcium [Mass/Vol] 9.4 mg/dL 8.5-10.2 [facility] Chloride [Moles/Vol] 103 mmol/L 98-107 [facility] CO2 [Moles/Vol] 24 mmol/L 22-30 [facility] Creatinine [Mass/Vol] 0.86 mg/dL 0.73-1.22 [facility] Glucose [Mass/Vol] 160 mg/dL High 74-99 [facility] Comment on above: The [place] Diabete s Association (ADA) provides guidance for cutoff values for fasting glucose and random glucose. The ADA defines fasting as no caloric intake for at least 8 hours. Fasting plasma glucose results between 100 to 125 mg/dL indicate increased risk for diabetes (prediabetes).Fasting plasma glucose results greater than or equal to 126 mg/dL meet the criteria for diagnosis of diabetes. In the absence of unequivocal hyperglycemia, results should be confirmed by repeat testing. In a patient with classic symptoms of hyperglycemia or hyperglycemic crisis, random plasma glucose results greater than or equal to 200 mg/dL meet the criteria for diagnosis of diabetes.Reference: Standards of Medical Care in Diabetes 2016, [place] [employer]. Diabetes Care. 2016.39(Suppl 1). Potassium [Moles/Vol] 4.3 mmol/L 3.7-5.1 [facility] Sodium [Moles/Vol] 138 mmol/L 136-144 [facility] Urea nitrogen [Mass/Vol] 24 mg/dL 07-01 [facility] Laboratory - Hematology and Cell countson 09-17-2024 Eosinophils (Bld) [#/Vol] 0.20 10*3/uL <0.46 [facility] Immature granulocytes (Bld) [#/Vol] 0.03 10*3/uL <0.10 [facility] Immature granulocytes/100 WBC (Bld) 0.4 % [facility] Leukocytes [#/volume] correc gareth for nucleated erythrocytes in Blood by Automated counon 09-17-2024 WBC corrected for nucl RBC Auto (Bld) [#/Vol] Leukocytes [#/volume] corrected for nucleated erythrocytes in Blood by Automated coun 3.70-11.00 [facility] Lymphocytes Auto (Bld) [#/Vo l]on 09-17-2024 Lymphocytes (Bld) [#/Vol] Lymphocytes [#/volume] in Blood by Automated count Low 1.00-4.00 [facility] Lymphocytes/100 WBC Auto (Bl d)on 09-17-2024 Lymphocytes/100 WBC (Bld) Lymphocytes/100 leukocytes in Blood by Automated count [facility] MCH Auto (RBC) [Entitic mass ]on 09-17-2024 MCH (RBC) [Entitic mass] MCH [Entitic mass] by Automated count 26.0-34.0 [facility] MCHC Auto (RBC) [Mass/Vol]on 09-17-2024 MCHC (RBC) [Mass/Vol] MCHC [Mass/volume] by Automated count 30.5-36.0 [facility] MCV Auto (RBC) [Entitic vol] on 09-17-2024 MCV (RBC) [Entitic vol] MCV [Entitic volume] by Automated count 80.0-100.0 [facility] Monocytes Auto (Bld) [#/Vol] on 09-17-2024 Monocytes (Bld) [#/Vol] Automated blood monocyte count <0.87 [facility] Monocytes/100 WBC Auto (Bld) on 09-17-2024 Monocytes/100 WBC (Bld) Automated monocyte % [facility] Neutrophils Auto (Bld) [#/Vo l]on 09-17-2024 Neutrophils (Bld) [#/Vol] Neutrophils [#/volume] in Blood by Automated count 1.45-7.50 [facility] Neutrophils/100 WBC Auto (Bl d)on 09-17-2024 Neutrophils/100 WBC (Bld) Automated neutrophil % [facility] No Panel Informationon 09-17 Estimated GFR (CKD-EPI) 99 mL/min/1.73m??? >=60 [facility] Comment on above: Estimated Glomerular Filtration Rate (eGFR) is calculated using the 2020 CKD-EPI creatinine equation. This equation utilizes serum creatinine, sex, and age as parameters. The creatinine assay has traceable calibration to isotope dilution-mass spectrometry. Refer to KDIGO guidelines for clinical interpretation. In patients with unstable renal function, e.g. those with acute kidney injury, the eGFR may not accurately reflect actual GFR. Nucleated RBC Auto (Bld) [#/ Vol]on 09-17-2024 Nucleated RBC (Bld) [#/Vol] Nucleated erythrocytes [#/volume] in Blood by Automated count <0.01 [facility] Nucleated erythrocytes [Pres ence] in Blood by Automated counton 09-17-2024 Nucleated RBC Auto Ql (Bld) Nucleated erythrocytes [Presence] in Blood by Automated count [facility] Platelet mean volume Auto (B ld) [Entitic vol]on 09-17-2024 Platelet mean volume (Bld) [Entitic vol] Platelet mean volume [Entitic volume] in Blood by Automated count 9.0-12.7 [facility] Platelets Auto (Bld) [#/Vol] on 09-17-2024 Platelets (Bld) [#/Vol] Platelets [#/volume] in Blood by Automated count 150-400 [facility] Protein [Mass/volume] in Ser um or Plasmaon 09-17-2024 Protein [Mass/Vol] Protein [Mass/volume ] in Serum or Plasma 6.3-8.0 [facility] RBC Auto (Bld) [#/Vol]on RBC (Bld) [#/Vol] Erythrocytes [#/volu me] in Blood by Automated count 4.20-6.00 [facility] Serum or plasma anion gap de terminationon 09-17-2024 Anion gap [Moles/Vol] Serum or plasma anion gap determination 8-15 [facility] Amphetamine Screen Ql (U)Ord ered By: Kenn Hodgson on 09-12-2024 Amphetamines Ql (U) Amphetamines screen Negativ e [facility] Barbiturates [Presence] in U rine by Screen methodOrdered By: Kenn Hodgson on 09-12-2024 Barbiturates Screen Ql (U) Barbiturates [Presence] in Urine by Screen method Negative [facility] Benzodiazepines Screen Ql (U )Ordered By: Kenn Hodgson on 09-12-2024 Benzodiazepines Ql (U) Benzodiazepines [Presence] in Urine by Screen method High Negative [facility] Benzoylecgonine [Presence] i n Urine by Screen methodOrdered By: Kenn Hodgson on 09-12-2024 Benzoylecgonine Screen Ql (U) Benzoylecgonine [Presence] in Urine by Screen method Negative [facility] Cannabinoids [Presence] in U rine by Screen methodOrdered By: Kenn Hodgson on 09-12-2024 Cannabinoids Screen Ql (U) Cannabinoids [Presence] in Urine by Screen method High Negative [facility] Comment on above: These are unconfirme d results and should not be used for legal purposes. Drug Cut-Off Concentration: AMPH 1000 ng/mL NICHOLE 200 ng/mL KYLIE 200 ng/mL COCM 300 ng/mL OP 300 ng/mL PCP 25 ng/mL THC 20 ng/mL Drug Screen,Urineon 09-12-20 24 Amphetamine Screen,Urine Negative Normal Negative [facility] Comment on above: Performed By: #### U RDS #### [address] Barbiturate Screen,Urine Negative Normal Negative [facility] Comment on above: Performed By: #### U RDS #### [place] [address] [place] Benzodiazepines Screen,Urine Positive High Negative [facility] Comment on above: Performed By: #### U RDS #### [address] Cannabinoid Screen,Urine Positive High Negative [facility] Comment on above: Result Comment: Thes e are unconfirmed results and should not be used for legal purposes. Drug Cut-Off Concentration: AMPH 1000 ng/mL NICHOLE 200 ng/mL KYLIE 200 ng/mL COCM 300 ng/mL OP 300 ng/mL PCP 25 ng/mL THC 20 ng/mL PERFORMED BY: [place] [address] PATHOLOGIST PROPERTY [employer]TY INSURANCE AGENT OSCAR SMILEY M.D. Performed By: #### U RDS #### [address] Cocaine Screen,Urine Negative Normal Negative [facility] Comment on above: Performed By: #### U RDS #### [place] [address] [place] Opiate Screen,Urine Negative Normal Negative [facility] Comment on above: Performed By: #### U RDS #### [address] Phencyclidine Screen,Urine Negative Normal Negative [facility] Comment on above: Performed By: #### U RDS #### [address] GLUCOSE POCT GLUCOMETERSon 1 11-13-2023 COMMEMT1 Glu2: Cleaned Meter [facility] Glucose [Mass/Vol] 152 mg/dL [facility] Comment on above: Random Glucose Refer ence Range is dependent on time and content of last meal. Glucose of more than 200 mg/dL in a nonstressed, ambulatory subject supports the diagnosis of Diabetes Mellitus. [facility] COMMEMT1 Glu2: Cleaned Meter [facility] Glucose [Mass/Vol] 125 mg/dL [facility] Comment on above: Random Glucose Refer ence Range is dependent on time and content of last meal. Glucose of more than 200 mg/dL in a nonstressed, ambulatory subject supports the diagnosis of Diabetes Mellitus. [facility] Glucose Glucometer (dC) [M ass/Vol]Ordered By: Joby Sol on 09-12-2024 Glucose [Mass/Vol] Capillary blood gluc ose measurement by glucometer (mass/volume) [facility] Comment on above: Random Glucose Refer ence Range is dependent on time and content of last meal. Glucose of more than 200 mg/dL in a nonstressed, ambulatory subject supports the diagnosis of Diabetes Mellitus. Glucose Poct Glucometerson 1 11-13-2023 Commemt1 Glu2: Cleaned Meter Normal [facility] Comment on above: Result Comment: PERF ORMED BY: [facility] [address] [place] [address] PATHOLOGIST [employer]ERTY [employer]TY INSURANCE AGENT OSCAR SMILEY M.D. Performed By: #### G LULS #### Point of Care testing , Glucose [Mass/Vol] 152 mg/dL Normal [facility] Comment on above: Result Comment: [place] Glucose Reference Range is dependent on time and content of last meal. Glucose of more than 200 mg/dL in a nonstressed, ambulatory subject supports the diagnosis of Diabetes Mellitus. Performed By: #### G LULS #### Point of Care testing , Commemt1 Glu2: Cleaned Meter Normal [facility] Comment on above: Result Comment: PERF ORMED BY: [facility] [address] [place] [address] PATHOLOGIST [employer]URANCE AGENT OSCAR SMILEY M.D. Performed By: #### G LULS #### Point of Care testing , Glucose [Mass/Vol] 125 mg/dL Normal [facility] Comment on above: Result Comment: [place] [facility] Glucose Reference Range is dependent on time and content of last meal. Glucose of more than 200 mg/dL in a nonstressed, ambulatory subject supports the diagnosis of Diabetes Mellitus. Performed By: #### G YONI #### Point of Care testing , No Panel InformationOrdered By: Joby Sol on 09-12-2024 Bedside Glucose Comment Glu2: cleaned meter [facility] Opiates [Presence] in Urine by Screen methodOrdered By: Kenn Hodgson on 09-12-2024 Opiates Screen Ql (U) Opiates [Presence] in Urine by Screen method Negative [facility] Phencyclidine Screen Ql (U)O rdered By: Kenn Hodgson on 09-12-2024 Phencyclidine Ql (U) Phencyclidine [Pres ence] in Urine by Screen method Negative [facility] Basophils Auto (Bld) [#/Vol] on 09-10-2024 Basophils (Bld) [#/Vol] Automated basophil count <0.11 [facility] Basophils/100 WBC Auto (Bld) on 09-10-2024 Basophils/100 WBC (Bld) Automated basophil % [facility] Blood manual differential co mment interpretation narrativeon 09-10-2024 Manual differential comment Chapin (Bld) [Interp] Blood manual differential comment interpretation narrative [facility] CBC W Auto Differential pane l (Bld)on 09-10-2024 Basophils (Bld) [#/Vol] 10*3/uL Normal <0.11 [facility] Comment on above: Order Comment: Speci men Type: BLOOD SPECIMENOrdering Facility: [facility] Address: [address] [place] [id number] Performed By: #### 5 7021-8 ####[facility] LABCLIA [id number] [place] [address] Basophils/100 WBC (Bld) 0.2 % Normal [facility] Comment on above: Order Comment: Speci men Type: BLOOD SPECIMENOrdering Facility: [facility] Address: [address] [place] [id number] Performed By: #### 5 7021-8 ####[facility] LABCLIA [id number] [place] [address] Differential cell count method Nom (Bld) Auto Normal [facility] Comment on above: Order Comment: Speci men Type: BLOOD SPECIMENOrdering Facility: [facility] Address: [address] [place] [address] Performed By: #### 5 7021-8 ####[facility] LABCLIA [id number] [place] [address] Eosinophils (Bld) [#/Vol] 0.23 10*3/uL Normal <0.46 [facility] Comment on above: Order Comment: Speci men Type: BLOOD SPECIMENOrdering Facility: [facility] Address: [address] [place] [address] Performed By: #### 5 7021-8 ####[facility] LABCLIA [id number] [place] [address] Eosinophils/100 WBC (Bld) 2.7 % Normal [facility] Comment on above: Order Comment: Speci men Type: BLOOD SPECIMENOrdering Facility: [facility] Address: [address] [place] [address] Performed By: #### 5 7021-8 ####[facility] LABCLIA [id number] [place] [address] Erythrocyte distribution width (RBC) [Ratio] 12.9 % Normal 11.5-15.0 [facility] Comment on above: Order Comment: Speci men Type: BLOOD SPECIMENOrdering Facility: [facility] Address: [address] [place] [place] [address] Performed By: #### 5 7021-8 ####[facility] LABIA [id number] [place] [address] Hematocrit (Bld) [Volume fraction] 39.9 % Normal 39.0-51.0 [facility] Comment on above: Order Comment: Speci men Type: BLOOD SPECIMENOrdering Facility: [facility] Address: [address] [place], [place] [address] Performed By: #### 5 7021-8 ####[facility] LABCLIA [id number] [place] [address] Hemoglobin (Bld) [Mass/Vol] 14.2 g/dL Normal 13.0-17.0 [facility] Comment on above: Order Comment: Speci men Type: BLOOD SPECIMENOrdering Facility: [facility] Address: [address] [place] [address] Performed By: #### 5 7021-8 ####[facility] LABCLIA [id number] [place] [address] Immature granulocytes (Bld) [#/Vol] 0.05 10*3/uL Normal <0.10 [facility] Comment on above: Order Comment: Speci men Type: BLOOD SPECIMENOrdering Facility: [facility] Address: [address] [place] [address] Performed By: #### 5 7021-8 ####[facility] LABCLIA [id number] [place] [address] Immature granulocytes/100 WBC (Bld) 0.6 % Normal [facility] Comment on above: Order Comment: Speci men Type: BLOOD SPECIMENOrdering Facility: [facility] Address: [address] [place] [address] Performed By: #### 5 7021-8 ####[facility] LABCLIA [id number] [place] [address] Lymphocytes (Bld) [#/Vol] 0.90 10*3/uL Low 1.00-4.00 [facility] Comment on above: Order Comment: Speci men Type: BLOOD SPECIMENOrdering Facility: [facility] Address: [address] [place] [address] Performed By: #### 5 7021-8 ####[facility] LABCLIA [id number] [place] [address] Lymphocytes/100 WBC (Bld) 10.6 % Normal [facility] Comment on above: Order Comment: Speci men Type: BLOOD SPECIMENOrdering Facility: [facility] Address: [address] [place] [address] Performed By: #### 5 7021-8 ####[facility] LABCLIA [id number] [place] [address] MCH (RBC) [Entitic mass] 31.1 pg Normal 26.0-34.0 [facility] Comment on above: Order Comment: Speci men Type: BLOOD SPECIMENOrdering Facility: [facility] Address: [address] [place] [address] Performed By: #### 5 7021-8 ####[facility] LABCLIA [id number] [place] [address] MCHC (RBC) [Mass/Vol] 35.6 g/dL Normal 30.5-36.0 [facility] Comment on above: Order Comment: Speci men Type: BLOOD SPECIMENOrdering Facility: [facility] Address: [address] [place] [address] Performed By: #### 5 7021-8 ####[facility] LABIA [id number] [place] [address] MCV (RBC) [Entitic vol] 87.5 fL Normal 80.0-100.0 [facility] Comment on above: Order Comment: Speci men Type: BLOOD SPECIMENOrdering Facility: [facility] Address: [address] [place] [address] Performed By: #### 5 7021-8 ####[facility] LABIA [id number] [place] [address] Monocytes (Bld) [#/Vol] 0.76 10*3/uL Normal <0.87 [facility] Comment on above: Order Comment: Speci men Type: BLOOD SPECIMENOrdering Facility: [facility] Address: [address] [place] [address] Performed By: #### 5 7021-8 ####[facility] LABCLIA [id number] [place] [address] Monocytes/100 WBC (Bld) 9.0 % Normal [facility] Comment on above: Order Comment: Speci men Type: BLOOD SPECIMENOrdering Facility: [facility] Address: [address] [place] [address] Performed By: #### 5 7021-8 ####[facility] LABCLIA [id number] [place] [address] Neutrophils (Bld) [#/Vol] 6.51 10*3/uL Normal 1.45-7.50 [facility] Comment on above: Order Comment: Speci men Type: BLOOD SPECIMENOrdering Facility: [facility] Address: [address] [place] [address] Performed By: #### 5 7021-8 ####[facility] LABCLIA [id number] [place] [address] Neutrophils/100 WBC (Bld) 76.9 % Normal [facility] Comment on above: Order Comment: Speci men Type: BLOOD SPECIMENOrdering Facility: [facility] Address: [address] [place] [address] Performed By: #### 5 7021-8 ####[facility] LABCLIA [id number] [place] [address] Nucleated RBC (Bld) [#/Vol] 10*3/uL Normal <0.01 [facility] Comment on above: Order Comment: Speci men Type: BLOOD SPECIMENOrdering Facility: [facility] Address: [address] [place] [address] Performed By: #### 5 7021-8 ####[facility] LABIA [id number] [place] [address] Nucleated RBC/100 WBC (Bld) [Ratio] 0.0 /100 WBC Normal [facility] Comment on above: Order Comment: Speci men Type: BLOOD SPECIMENOrdering Facility: [facility] Address: [address] [place] [address] Performed By: #### 5 7021-8 ####[facility] LABCLIA [id number] [place] [address] Platelet mean volume (Bld) [Entitic vol] 9.6 fL Normal 9.0-12.7 [facility] Comment on above: Order Comment: Speci men Type: BLOOD SPECIMENOrdering Facility: [facility] Address: [address] [place] [address] Performed By: #### 5 7021-8 ####[facility] LABCLIA [id number] [place] [address] Platelets (Bld) [#/Vol] 231 10*3/uL Normal 150-400 [facility] Comment on above: Order Comment: Speci men Type: BLOOD SPECIMENOrdering Facility: [facility] Address: [address] [place] [address] Performed By: #### 5 7021-8 ####[facility] LABCLIA [id number] [place] [address] RBC (Bld) [#/Vol] 4.56 10*6/uL Normal 4.20-6.00 [facility] Comment on above: Order Comment: Speci men Type: BLOOD SPECIMENOrdering Facility: [facility] Address: [address] [place] [address] Performed By: #### 5 7021-8 ####[facility] LABCLIA [id number] [place] [address] WBC (Bld) [#/Vol] 8.47 10*3/uL Normal 3.70-11.00 [facility] Comment on above: Order Comment: Speci men Type: BLOOD SPECIMENOrdering Facility: [facility] Address: [address] [place] [address] Performed By: #### 5 7021-8 ####[facility] LABCLIA [id number] [place] [address] CNOVSPon 09-10-2024 CNOVSP Normal [facility] metabolic 2000 panelon 09-10-2024 Albumin [Mass/Vol] 4.4 g/dL Normal 3.9-4.9 [facility] Comment on above: Order Comment: Speci men Type: BLOOD SPECIMENOrdering Facility: [facility] Address: [address] [place] [address] Performed By: #### 2 4323-8 ####[facility] LABCLIA [id number] [place] [address] ALP [Catalytic activity/Vol] 86 U/L Normal 38-113 [facility] Comment on above: Order Comment: Speci men Type: BLOOD SPECIMENOrdering Facility: [facility] Address: [address] [place] [address] Performed By: #### 2 4323-8 ####[facility] LABCLIA [id number] [place] [address] ALT [Catalytic activity/Vol] 13 U/L Normal 10-54 [facility] Comment on above: Order Comment: Speci men Type: BLOOD SPECIMENOrdering Facility: [facility] Address: [address] [place] [address] Performed By: #### 2 4323-8 ####[facility] LABCLIA [id number] [place] [address] Anion gap [Moles/Vol] 9 mmol/L Normal 8-15 [facility] Comment on above: Order Comment: Speci men Type: BLOOD SPECIMENOrdering Facility: [facility] Address: [address] [place] [address] Performed By: #### 2 4323-8 ####[facility] LABIA [id number] [place] [address] AST [Catalytic activity/Vol] 11 U/L Low 14-40 [facility] Comment on above: Order Comment: Speci men Type: BLOOD SPECIMENOrdering Facility: [facility] Address: [address] [place] [address] Performed By: #### 2 4323-8 ####[facility] LABCLIA [id number] [place] [address] Bilirubin [Mass/Vol] 0.3 mg/dL Normal 0.2-1.3 [facility] Comment on above: Order Comment: Speci men Type: BLOOD SPECIMENOrdering Facility: [facility] Address: [address] [place] [address] Performed By: #### 2 4323-8 ####[facility] LABCLIA [id number] [place] [address] Calcium [Mass/Vol] 9.0 mg/dL Normal 8.5-10.2 [facility] Comment on above: Order Comment: Speci men Type: BLOOD SPECIMENOrdering Facility: [facility] Address: [address] [place] [address] Performed By: #### 2 4323-8 ####[facility] LABCLIA [id number] [place] [address] Chloride [Moles/Vol] 103 mmol/L Normal 98-107 [facility] Comment on above: Order Comment: Speci men Type: BLOOD SPECIMENOrdering Facility: [facility] Address: [address] [place] [address] Performed By: #### 2 4323-8 ####[facility] LABCLIA [id number] [place] [address] CO2 [Moles/Vol] 27 mmol/L Normal 22-30 [facility] Comment on above: Order Comment: Speci men Type: BLOOD SPECIMENOrdering Facility: [facility] Address: [address] [place] [address] Performed By: #### 2 4323-8 ####[facility] LABCLIA [id number] [place] [address] Creatinine [Mass/Vol] 0.81 mg/dL Normal 0.73-1.22 [facility] Comment on above: Order Comment: Johana baldwin Type: BLOOD SPECIMENOrdering Facility: [facility] Address: [address] [id number] Performed By: #### 2 4323-8 ####[facility] LABCLIA [id number] [place] [address] Creatinine and Glomerular filtration rate.predicted panel (S/P/Bld) 101 mL/min/1.73m??? Normal >=60 [facility] Comment on above: Order Comment: Johana baldwin Type: BLOOD SPECIMENOrdering Facility: [facility] Address: [address] [place] [address] Result Comment: Eladia mated Glomerular Filtration Rate (eGFR) is calculated using the 2020 CKD-EPI creatinine equation. This equation utilizes serum creatinine, sex, and age as parameters. The creatinine assay has traceable calibration to isotope dilution-mass spectrometry. Refer to KDIGO guidelines for clinical interpretation. In patients with unstable renal function, e.g. those with acute kidney injury, the eGFR may not accurately reflect actual GFR. Performed By: #### 2 4323-8 ####[facility] LABCLIA [id number] [place] [address] Glucose [Mass/Vol] 133 mg/dL High 74-99 [facility] Comment on above: Order Comment: Johana baldwin Type: BLOOD SPECIMENOrdering Facility: [facility] Address: [address] [id number] Result Comment: The [place] Diabetes Association (ADA) provides guidance for cutoff values for fasting glucose and random glucose. The ADA defines fasting as no caloric intake for at least 8 hours. Fasting plasma glucose results between 100 to 125 mg/dL indicate increased risk for diabetes (prediabetes).Fasting plasma glucose results greater than or equal to 126 mg/dL meet the criteria for diagnosis of diabetes. In the absence of unequivocal hyperglycemia, results should be confirmed by repeat testing. In a patient with classic symptoms of hyperglycemia or hyperglycemic crisis, random plasma glucose results greater than or equal to 200 mg/dL meet the criteria for diagnosis of diabetes.Reference: Standards of Medical Care in Diabetes 2016, [place] [employer]. Diabetes Care. 2016.39(Suppl 1). Performed By: #### 2 4323-8 ####[facility] LABCLIA [id number] [place] [address] Potassium [Moles/Vol] 4.3 mmol/L Normal 3.7-5.1 [facility] Comment on above: Order Comment: Speci men Type: BLOOD SPECIMENOrdering Facility: [facility] Address: [address] [place] [address] Performed By: #### 2 4323-8 ####[facility] LABCLIA [id number] [place] [address] Protein [Mass/Vol] 6.6 g/dL Normal 6.3-8.0 [facility] Comment on above: Order Comment: Speci men Type: BLOOD SPECIMENOrdering Facility: [facility] Address: [address] [place] [address] Performed By: #### 2 4323-8 ####[facility] LABCLIA [id number] [place] [address] Sodium [Moles/Vol] 139 mmol/L Normal 136-144 [facility] Comment on above: Order Comment: Speci men Type: BLOOD SPECIMENOrdering Facility: [facility] Address: [address] [place] [address] Performed By: #### 2 4323-8 ####[facility] LABCLIA [id number] [place] [address] Urea nitrogen [Mass/Vol] 25 mg/dL High 9-24 [facility] Comment on above: Order Comment: Speci men Type: BLOOD SPECIMENOrdering Facility: [facility] Address: [address] [place] [address] Performed By: #### 2 4323-8 ####[facility] LABCLIA [id number] [place] [address] Eosinophils/100 WBC Auto (Bl d)on 09-10-2024 Eosinophils/100 WBC (Bld) Automated eosinophil % [facility] Erythrocyte distribution wid th Auto (RBC) [Ratio]on 09-10-2024 Erythrocyte distribution width (RBC) [Ratio] Erythrocyte distribution width [Ratio] by Automated count 11.5-15.0 [facility] Hematocrit Auto (Bld) [Volum e fraction]on 09-10-2024 Hematocrit (Bld) [Volume fraction] Hematocrit [Volume Fraction] of Blood by Automated count 39.0-51.0 [facility] Hemoglobin [Mass/volume] in Bloodon 09-10-2024 Hemoglobin (Bld) [Mass/Vol] Hemoglobin [Mass/volume] in Blood 13.0-17.0 [facility] Laboratory - Chemistry and C hemistry - challengeon 09-10-2024 Albumin [Mass/Vol] 4.4 g/dL 3.9-4.9 [facility] ALP [Catalytic activity/Vol] 86 U/L 38-113 [facility] ALT [Catalytic activity/Vol] 13 U/L 10-54 [facility] AST [Catalytic activity/Vol] 11 U/L Low 14-40 [facility] Bilirubin [Mass/Vol] 0.3 mg/dL 0.2-1.3 [facility] Calcium [Mass/Vol] 9.0 mg/dL 8.5-10.2 [facility] Chloride [Moles/Vol] 103 mmol/L 98-107 [facility] CO2 [Moles/Vol] 27 mmol/L 22-30 [facility] Creatinine [Mass/Vol] 0.81 mg/dL 0.73-1.22 [facility] Glucose [Mass/Vol] 133 mg/dL High 74-99 [facility] Comment on above: The [place] Diabete s Association (ADA) provides guidance for cutoff values for fasting glucose and random glucose. The ADA defines fasting as no caloric intake for at least 8 hours. Fasting plasma glucose results between 100 to 125 mg/dL indicate increased risk for diabetes (prediabetes).Fasting plasma glucose results greater than or equal to 126 mg/dL meet the criteria for diagnosis of diabetes. In the absence of unequivocal hyperglycemia, results should be confirmed by repeat testing. In a patient with classic symptoms of hyperglycemia or hyperglycemic crisis, random plasma glucose results greater than or equal to 200 mg/dL meet the criteria for diagnosis of diabetes.Reference: Standards of Medical Care in Diabetes 2016, [place] [employer]. Diabetes Care. 2016.39(Suppl 1). Potassium [Moles/Vol] 4.3 mmol/L 3.7-5.1 [facility] Sodium [Moles/Vol] 139 mmol/L 136-144 [facility] Urea nitrogen [Mass/Vol] 25 mg/dL High 9-24 [facility] Laboratory - Hematology and Cell countson 09-10-2024 Eosinophils (Bld) [#/Vol] 0.23 10*3/uL <0.46 [facility] Immature granulocytes (Bld) [#/Vol] 0.05 10*3/uL <0.10 [facility] Immature granulocytes/100 WBC (Bld) 0.6 % [facility] Leukocytes [#/volume] correc gareth for nucleated erythrocytes in Blood by Automated counon 09-10-2024 WBC corrected for nucl RBC Auto (Bld) [#/Vol] Leukocytes [#/volume] corrected for nucleated erythrocytes in Blood by Automated coun 3.70-11.00 [facility] Lymphocytes Auto (Bld) [#/Vo l]on 09-10-2024 Lymphocytes (Bld) [#/Vol] Lymphocytes [#/volume] in Blood by Automated count Low 1.00-4.00 [facility] Lymphocytes/100 WBC Auto (Bl d)on 09-10-2024 Lymphocytes/100 WBC (Bld) Lymphocytes/100 leukocytes in Blood by Automated count [facility] MCH Auto (RBC) [Entitic mass ]on 09-10-2024 MCH (RBC) [Entitic mass] MCH [Entitic mass] by Automated count 26.0-34.0 [facility] MCHC Auto (RBC) [Mass/Vol]on 09-10-2024 MCHC (RBC) [Mass/Vol] MCHC [Mass/volume] by Automated count 30.5-36.0 [facility] MCV Auto (RBC) [Entitic vol] on 09-10-2024 MCV (RBC) [Entitic vol] MCV [Entitic volume] by Automated count 80.0-100.0 [facility] Monocytes Auto (Bld) [#/Vol] on 09-10-2024 Monocytes (Bld) [#/Vol] Automated blood monocyte count <0.87 [facility] Monocytes/100 WBC Auto (Bld) on 09-10-2024 Monocytes/100 WBC (Bld) Automated monocyte % [facility] Neutrophils Auto (Bld) [#/Vo l]on 09-10-2024 Neutrophils (Bld) [#/Vol] Neutrophils [#/volume] in Blood by Automated count 1.45-7.50 [facility] Neutrophils/100 WBC Auto (Bl d)on 09-10-2024 Neutrophils/100 WBC (Bld) Automated neutrophil % [facility] No Panel Informationon 09-10 Estimated GFR (CKD-EPI) 101 mL/min/1.73m??? >=60 [facility] Comment on above: Estimated Glomerular Filtration Rate (eGFR) is calculated using the 2020 CKD-EPI creatinine equation. This equation utilizes serum creatinine, sex, and age as parameters. The creatinine assay has traceable calibration to isotope dilution-mass spectrometry. Refer to KDIGO guidelines for clinical interpretation. In patients with unstable renal function, e.g. those with acute kidney injury, the eGFR may not accurately reflect actual GFR. Nucleated RBC Auto (Bld) [#/ Vol]on 09-10-2024 Nucleated RBC (Bld) [#/Vol] Nucleated erythrocytes [#/volume] in Blood by Automated count <0.01 [facility] Nucleated erythrocytes [Pres ence] in Blood by Automated counton 09-10-2024 Nucleated RBC Auto Ql (Bld) Nucleated erythrocytes [Presence] in Blood by Automated count [facility] Platelet mean volume Auto (B ld) [Entitic vol]on 09-10-2024 Platelet mean volume (Bld) [Entitic vol] Platelet mean volume [Entitic volume] in Blood by Automated count 9.0-12.7 [facility] Platelets Auto (Bld) [#/Vol] on 09-10-2024 Platelets (Bld) [#/Vol] Platelets [#/volume] in Blood by Automated count 150-400 [facility] Protein [Mass/volume] in Ser um or Plasmaon 09-10-2024 Protein [Mass/Vol] Protein [Mass/volume ] in Serum or Plasma 6.3-8.0 [facility] RBC Auto (Bld) [#/Vol]on RBC (Bld) [#/Vol] Erythrocytes [#/volu me] in Blood by Automated count 4.20-6.00 [facility] Serum or plasma anion gap de terminationon 09-10-2024 Anion gap [Moles/Vol] Serum or plasma anion gap determination 8-15 [facility] CNPNon 09-01-2024 CNPN Normal [facility] ECG 12 lead ECGon 08-29-2024 ECG 12 lead ECG [facility] [place] [address] Electrocardiograph Report Signed Patient: Kodi Rivas MR#: [id number] 0 : 1965 Acct:[id number] Age/Sex: 59 / M ADM Date: 08/29/24 Loc: Room: Type: [facility] Attending Dr: Joby Sol DO Ordering Provider: Joby Sol DO Date of Service: 08/29/24 ECG/ECG 12 lead ECG: pst Copies to: Test Reason : Blood Pressure : */* mmHG Vent. Rate : 69 BPM Atrial Rate : 69 BPM P-R Int : 148 ms QRS Dur : 98 ms QT Int : 380 ms P-R-T Axes : 60 73 49 degrees QTcB Int : 407 ms Normal sinus rhythm Normal ECG Confirmed by Beatriz Hernandez ([id number]) on 08/29/2024 11:22:39 PM Referred By: Electronically Signed By: Beatriz Hernandez Transcribed By: MUS Signed By Beatriz Hernandez MD 4 [id number] Normal [facility] CNOVSPon 08-27-2024 CNOVSP Normal [facility] Basophils Auto (Bld) [#/Vol] on 08-20-2024 Basophils (Bld) [#/Vol] Automated basophil count <0.11 [facility] Basophils/100 WBC Auto (Bld) on 08-20-2024 Basophils/100 WBC (Bld) Automated basophil % [facility] Blood manual differential co mment interpretation narrativeon 08-20-2024 Manual differential comment Chapin (Bld) [Interp] Blood manual differential comment interpretation narrative [facility] CBC W Auto Differential pane l (Bld)on 08-20-2024 Basophils (Bld) [#/Vol] 0.04 10*3/[facility] Basophils/100 WBC (Bld) 0.4 % [facility] Differential cell count method Nom (Bld) Auto [facility] Eosinophils (Bld) [#/Vol] 0.29 10*3/uL [facility] Eosinophils/100 WBC (Bld) 3.1 % [facility] Erythrocyte distribution width (RBC) [Ratio] 12.9 % 11.5 - 15.0 % [facility] Hematocrit (Bld) [Volume fraction] 40.2 % 39.0 - 51.0 % [facility] Hemoglobin (Bld) [Mass/Vol] 13.8 g/dL 13.0 - 17.0 g/dL [facility] Immature granulocytes (Bld) [#/Vol] 0.04 10*3/uL [facility] Immature granulocytes/100 WBC (Bld) 0.4 % [facility] Interpretation and review of laboratory results Abnormal [facility] Lymphocytes (Bld) [#/Vol] 0.81 10*3/uL Low [facility] Lymphocytes/100 WBC (Bld) 8.8 % [facility] MCH (RBC) [Entitic mass] 30.5 pg 26.0 - 34.0 pg [facility] MCHC (RBC) [Mass/Vol] 34.3 g/dL 30.5 - 36.0 g/dL [facility] MCV (RBC) [Entitic vol] 88.9 fL 80.0 - 100.0 fL [facility] Monocytes (Bld) [#/Vol] 0.70 10*3/u[facility] Monocytes/100 WBC (Bld) 7.6 % [facility] Neutrophils (Bld) [#/Vol] 7.35 10*3/uL [facility] Neutrophils/100 WBC (Bld) 79.7 % [facility] Nucleated RBC (Bld) [#/Vol] [facility] Nucleated RBC/100 WBC (Bld) [Ratio] 0.0 % /100 WBC [facility] Platelet mean volume (Bld) [Entitic vol] 9.7 fL 9.0 - 12.7 fL [facility] Platelets (Bld) [#/Vol] 226 10*3/uL [facility] RBC (Bld) [#/Vol] 4.52 10*6/uL 4.20 - 6.0 0 m/uL [facility] WBC (Bld) [#/Vol] 9.23 10*3/uL [facility] Basophils (Bld) [#/Vol] 0.04 10*3/uL Normal <0.11 [facility] Comment on above: Order Comment: Speci men Type: BLOOD SPECIMENOrdering Facility: [facility] Address: [address] [place] [address] Performed By: #### 5 7021-8 ####[facility] LABCLIA [id number] [place] [address] Basophils/100 WBC (Bld) 0.4 % Normal [facility] Comment on above: Order Comment: Speci men Type: BLOOD SPECIMENOrdering Facility: [facility] Address: [address] [place] [address] Performed By: #### 5 7021-8 ####[facility] LABCLIA [id number] [place] [address] Differential cell count method Nom (Bld) Auto Normal [facility] Comment on above: Order Comment: Speci men Type: BLOOD SPECIMENOrdering Facility: [facility] Address: [address] [place] [address] Performed By: #### 5 7021-8 ####[facility] LABCLIA [id number] [place] [address] Eosinophils (Bld) [#/Vol] 0.29 10*3/uL Normal <0.46 [facility] Comment on above: Order Comment: Speci men Type: BLOOD SPECIMENOrdering Facility: [facility] Address: [address] [place] [address] Performed By: #### 5 7021-8 ####[facility] LABCLIA [id number] [place] [address] Eosinophils/100 WBC (Bld) 3.1 % Normal [facility] Comment on above: Order Comment: Speci men Type: BLOOD SPECIMENOrdering Facility: [facility] Address: [address] [place] [address] Performed By: #### 5 7021-8 ####[facility] LABCLIA [id number] [place] [address] Erythrocyte distribution width (RBC) [Ratio] 12.9 % Normal 11.5-15.0 [facility] Comment on above: Order Comment: Speci men Type: BLOOD SPECIMENOrdering Facility: [facility] Address: [address] [place] [address] Performed By: #### 5 7021-8 ####[facility] LABCLIA [id number] [place] [address] Hematocrit (Bld) [Volume fraction] 40.2 % Normal 39.0-51.0 [facility] Comment on above: Order Comment: Speci men Type: BLOOD SPECIMENOrdering Facility: [facility] Address: [address] [place] [address] Performed By: #### 5 7021-8 ####[facility] LABCLIA [id number] [place] [address] Hemoglobin (Bld) [Mass/Vol] 13.8 g/dL Normal 13.0-17.0 [facility] Comment on above: Order Comment: Speci men Type: BLOOD SPECIMENOrdering Facility: [facility] Address: [address] [place] [address] Performed By: #### 5 7021-8 ####[facility] LABIA [id number] [place] [address] Immature granulocytes (Bld) [#/Vol] 0.04 10*3/uL Normal <0.10 [facility] Comment on above: Order Comment: Speci men Type: BLOOD SPECIMENOrdering Facility: [facility] Address: [address] [place] [address] Performed By: #### 5 7021-8 ####[facility] LABCLIA [id number] [place] [address] Immature granulocytes/100 WBC (Bld) 0.4 % Normal [facility] Comment on above: Order Comment: Speci men Type: BLOOD SPECIMENOrdering Facility: [facility] Address: [address] [place] [address] Performed By: #### 5 7021-8 ####[facility] LABCLIA [id number] [place] [address] Lymphocytes (Bld) [#/Vol] 0.81 10*3/uL Low 1.00-4.00 [facility] Comment on above: Order Comment: Speci men Type: BLOOD SPECIMENOrdering Facility: [facility] Address: [address] [place] [address] Performed By: #### 5 7021-8 ####[facility] LABCLIA [id number] [place] [address] Lymphocytes/100 WBC (Bld) 8.8 % Normal [facility] Comment on above: Order Comment: Speci men Type: BLOOD SPECIMENOrdering Facility: [facility] Address: [address] [place] [address] Performed By: #### 5 7021-8 ####[facility] LABCLIA [id number] [place] [address] MCH (RBC) [Entitic mass] 30.5 pg Normal 26.0-34.0 [facility] Comment on above: Order Comment: Speci men Type: BLOOD SPECIMENOrdering Facility: [facility] Address: [address] [place] [address] Performed By: #### 5 7021-8 ####[facility] LABCLIA [id number] [place] [address] MCHC (RBC) [Mass/Vol] 34.3 g/dL Normal 30.5-36.0 [facility] Comment on above: Order Comment: Speci men Type: BLOOD SPECIMENOrdering Facility: [facility] Address: [address] [place] [address] Performed By: #### 5 7021-8 ####[facility] LABCLIA [id number] [place] [address] MCV (RBC) [Entitic vol] 88.9 fL Normal 80.0-100.0 [facility] Comment on above: Order Comment: Speci men Type: BLOOD SPECIMENOrdering Facility: [facility] Address: [address] [place] [address] Performed By: #### 5 7021-8 ####[facility] LABCLIA [id number] [place] [address] Monocytes (Bld) [#/Vol] 0.70 10*3/uL Normal <0.87 [facility] Comment on above: Order Comment: Speci men Type: BLOOD SPECIMENOrdering Facility: [facility] Address: [address] [place] [address] Performed By: #### 5 7021-8 ####[facility] LABCLIA [id number] [place] [address] Monocytes/100 WBC (Bld) 7.6 % Normal [facility] Comment on above: Order Comment: Speci men Type: BLOOD SPECIMENOrdering Facility: [facility] Address: [address] [place] [address] Performed By: #### 5 7021-8 ####[facility] LABCLIA [id number] [place] [address] Neutrophils (Bld) [#/Vol] 7.35 10*3/uL Normal 1.45-7.50 [facility] Comment on above: Order Comment: Speci men Type: BLOOD SPECIMENOrdering Facility: [facility] Address: [address] [place] [address] Performed By: #### 5 7021-8 ####[facility] LABCLIA [id number] [place] [address] Neutrophils/100 WBC (Bld) 79.7 % Normal [facility] Comment on above: Order Comment: Speci men Type: BLOOD SPECIMENOrdering Facility: [facility] Address: [address] [place] [address] Performed By: #### 5 7021-8 ####[facility] LABCLIA [id number] [place] [address] Nucleated RBC (Bld) [#/Vol] 10*3/uL Normal <0.01 [facility] Comment on above: Order Comment: Speci men Type: BLOOD SPECIMENOrdering Facility: [facility] Address: [address] [place] [address] Performed By: #### 5 7021-8 ####[facility] LABCLIA [id number] [place] [address] Nucleated RBC/100 WBC (Bld) [Ratio] 0.0 /100 WBC Normal [facility] Comment on above: Order Comment: Speci men Type: BLOOD SPECIMENOrdering Facility: [facility] Address: [address] [place] [address] Performed By: #### 5 7021-8 ####[facility] LABCLIA [id number] [place] [address] Platelet mean volume (Bld) [Entitic vol] 9.7 fL Normal 9.0-12.7 [facility] Comment on above: Order Comment: Speci men Type: BLOOD SPECIMENOrdering Facility: [facility] Address: [address] [place] [address] Performed By: #### 5 7021-8 ####[facility] LABCLIA [id number] [place] [address] Platelets (Bld) [#/Vol] 226 10*3/uL Normal 150-400 [facility] Comment on above: Order Comment: Speci men Type: BLOOD SPECIMENOrdering Facility: [facility] Address: [address] [place], [place] [address] Performed By: #### 5 7021-8 ####[facility] LABIA [id number] [place] [address] RBC (Bld) [#/Vol] 4.52 10*6/uL Normal 4.20-6.00 [facility] Comment on above: Order Comment: Speci men Type: BLOOD SPECIMENOrdering Facility: [facility] Address: [address] [place], [place] [address] Performed By: #### 5 7021-8 ####[facility] LABIA [id number] [place] [address] WBC (Bld) [#/Vol] 9.23 10*3/uL Normal 3.70-11.00 [facility] Comment on above: Order Comment: Speci men Type: BLOOD SPECIMENOrdering Facility: [facility] Address: [address] [place], [place] [address] Performed By: #### 5 7021-8 ####[facility] LABIA [id number] [place] [address] Eosinophils/100 WBC Auto (Bl d)on 08-20-2024 Eosinophils/100 WBC (Bld) Automated eosinophil % [facility] Erythrocyte distribution wid th Auto (RBC) [Ratio]on 08-20-2024 Erythrocyte distribution width (RBC) [Ratio] Erythrocyte distribution width [Ratio] by Automated count 11.5-15.0 [facility] Hematocrit Auto (Bld) [Volum e fraction]on 08-20-2024 Hematocrit (Bld) [Volume fraction] Hematocrit [Volume Fraction] of Blood by Automated count 39.0-51.0 [facility] Hemoglobin [Mass/volume] in Bloodon 08-20-2024 Hemoglobin (Bld) [Mass/Vol] Hemoglobin [Mass/volume] in Blood 13.0-17.0 [facility] Laboratory - Hematology and Cell countson 08-20-2024 Eosinophils (Bld) [#/Vol] 0.29 10*3/uL <0.46 [facility] Immature granulocytes (Bld) [#/Vol] 0.04 10*3/uL <0.10 [facility] Immature granulocytes/100 WBC (Bld) 0.4 % [facility] Leukocytes [#/volume] correc gareth for nucleated erythrocytes in Blood by Automated counon 08-20-2024 WBC corrected for nucl RBC Auto (Bld) [#/Vol] Leukocytes [#/volume] corrected for nucleated erythrocytes in Blood by Automated coun 3.70-11.00 [facility] Lymphocytes Auto (Bld) [#/Vo l]on 08-20-2024 Lymphocytes (Bld) [#/Vol] Lymphocytes [#/volume] in Blood by Automated count Low 1.00-4.00 [facility] Lymphocytes/100 WBC Auto (Bl d)on 08-20-2024 Lymphocytes/100 WBC (Bld) Lymphocytes/100 leukocytes in Blood by Automated count [facility] MCH Auto (RBC) [Entitic mass ]on 08-20-2024 MCH (RBC) [Entitic mass] MCH [Entitic mass] by Automated count 26.0-34.0 [facility] MCHC Auto (RBC) [Mass/Vol]on 08-20-2024 MCHC (RBC) [Mass/Vol] MCHC [Mass/volume] by Automated count 30.5-36.0 [facility] MCV Auto (RBC) [Entitic vol] on 08-20-2024 MCV (RBC) [Entitic vol] MCV [Entitic volume] by Automated count 80.0-100.0 [facility] Monocytes Auto (Bld) [#/Vol] on 08-20-2024 Monocytes (Bld) [#/Vol] Automated blood monocyte count <0.87 [facility] Monocytes/100 WBC Auto (Bld) on 08-20-2024 Monocytes/100 WBC (Bld) Automated monocyte % [facility] Neutrophils Auto (Bld) [#/Vo l]on 08-20-2024 Neutrophils (Bld) [#/Vol] Neutrophils [#/volume] in Blood by Automated count 1.45-7.50 [facility] Neutrophils/100 WBC Auto (Bl d)on 08-20-2024 Neutrophils/100 WBC (Bld) Automated neutrophil % [facility] Nucleated RBC Auto (Bld) [#/ Vol]on 08-20-2024 Nucleated RBC (Bld) [#/Vol] Nucleated erythrocytes [#/volume] in Blood by Automated count <0.01 [facility] Nucleated erythrocytes [Pres ence] in Blood by Automated counton 08-20-2024 Nucleated RBC Auto Ql (Bld) Nucleated erythrocytes [Presence] in Blood by Automated count [facility] Platelet mean volume Auto (B ld) [Entitic vol]on 08-20-2024 Platelet mean volume (Bld) [Entitic vol] Platelet mean volume [Entitic volume] in Blood by Automated count 9.0-12.7 [facility] Platelets Auto (Bld) [#/Vol] on 08-20-2024 Platelets (Bld) [#/Vol] Platelets [#/volume] in Blood by Automated count 150-400 [facility] RBC Auto (Bld) [#/Vol]on RBC (Bld) [#/Vol] Erythrocytes [#/volu me] in Blood by Automated count 4.20-6.00 [facility] Albumin [Mass/volume] in Ser um or Plasmaon 08-13-2024 Albumin [Mass/Vol] Albumin [Mass/volume ] in Serum or Plasma 3.43-5.41 [facility] B2 Microglob SerPl-mCncon Omns-2-Ohwxsybhxjxnd [Mass/Vol] 1.7 ug/mL Normal <3.1 [facility] Comment on above: Order Comment: Speci men Type: BLOOD SPECIMENOrdering Facility: [facility] Address: [address] [place] [address] Result Comment: Beta -2 Microglobulin test is performed using the [employer] immunoturbidimetric method. Results obtained with different methods or kits cannot be used interchangeably. Performed By: #### 1 952-1, 2885-2, 3016-3, 2132-9 ####[facility] LABCLIA [id number] [place] [address] [place] Basophils Auto (Bld) [#/Vol] on 08-13-2024 Basophils (Bld) [#/Vol] Automated basophil count <0.11 [facility] Basophils/100 WBC Auto (Bld) on 08-13-2024 Basophils/100 WBC (Bld) Automated basophil % [facility] Blood manual differential co mment interpretation narrativeon 08-13-2024 Manual differential comment Chapin (Bld) [Interp] Blood manual differential comment interpretation narrative [facility] CBC W Auto Differential pane l (Bld)on 08-13-2024 Basophils (Bld) [#/Vol] 10*3/uL Normal <0.11 [facility] Comment on above: Order Comment: Speci men Type: BLOOD SPECIMENOrdering Facility: [facility] Address: [address] [place] [address] Performed By: #### 5 7021-8 ####[facility] LABCLIA [id number] [place] [address] Basophils/100 WBC (Bld) 0.3 % Normal [facility] Comment on above: Order Comment: Speci men Type: BLOOD SPECIMENOrdering Facility: [facility] Address: [address] [place] [address] Performed By: #### 5 7021-8 ####[facility] LABCLIA [id number] [place] [address] Differential cell count method Nom (Bld) Auto Normal [facility] Comment on above: Order Comment: Speci men Type: BLOOD SPECIMENOrdering Facility: [facility] Address: [address] [place] [address] Performed By: #### 5 7021-8 ####[facility] LABCLIA [id number] [place] [address] Eosinophils (Bld) [#/Vol] 0.27 10*3/uL Normal <0.46 [facility] Comment on above: Order Comment: Speci men Type: BLOOD SPECIMENOrdering Facility: [facility] Address: [address] [place] [address] Performed By: #### 5 7021-8 ####[facility] LABCLIA [id number] [place] [address] Eosinophils/100 WBC (Bld) 3.6 % Normal [facility] Comment on above: Order Comment: Speci men Type: BLOOD SPECIMENOrdering Facility: [facility] Address: [address] [place] [address] Performed By: #### 5 7021-8 ####[facility] LABCLIA [id number] [place] [address] Erythrocyte distribution width (RBC) [Ratio] 12.9 % Normal 11.5-15.0 [facility] Comment on above: Order Comment: Speci men Type: BLOOD SPECIMENOrdering Facility: [facility] Address: [address] [place] [address] Performed By: #### 5 7021-8 ####[facility] LABCLIA [id number] [place] [address] Hematocrit (Bld) [Volume fraction] 40.4 % Normal 39.0-51.0 [facility] Comment on above: Order Comment: Speci men Type: BLOOD SPECIMENOrdering Facility: [facility] Address: [address] [place] [address] Performed By: #### 5 7021-8 ####[facility] LABCLIA [id number] [place] [address] Hemoglobin (Bld) [Mass/Vol] 13.7 g/dL Normal 13.0-17.0 [facility] Comment on above: Order Comment: Speci men Type: BLOOD SPECIMENOrdering Facility: [facility] Address: [address] [place] [address] Performed By: #### 5 7021-8 ####[facility] LABCLIA [id number] [place] [address] Immature granulocytes (Bld) [#/Vol] 0.03 10*3/uL Normal <0.10 [facility] Comment on above: Order Comment: Speci men Type: BLOOD SPECIMENOrdering Facility: [facility] Address: [address] [place] [address] Performed By: #### 5 7021-8 ####[facility] LABCLIA [id number] [place] [address] Immature granulocytes/100 WBC (Bld) 0.4 % Normal [facility] Comment on above: Order Comment: Speci men Type: BLOOD SPECIMENOrdering Facility: [facility] Address: [address] [place] [address] Performed By: #### 5 7021-8 ####[facility] LABCLIA [id number] [place] [address] Lymphocytes (Bld) [#/Vol] 0.88 10*3/uL Low 1.00-4.00 [facility] Comment on above: Order Comment: Speci men Type: BLOOD SPECIMENOrdering Facility: [facility] Address: [address] [place] [address] Performed By: #### 5 7021-8 ####[facility] LABCLIA [id number] [place] [address] Lymphocytes/100 WBC (Bld) 11.8 % Normal [facility] Comment on above: Order Comment: Speci men Type: BLOOD SPECIMENOrdering Facility: [facility] Address: [address] [place] [address] Performed By: #### 5 7021-8 ####[facility] LABCLIA [id number] [place] [address] MCH (RBC) [Entitic mass] 30.4 pg Normal 26.0-34.0 [facility] Comment on above: Order Comment: Speci men Type: BLOOD SPECIMENOrdering Facility: [facility] Address: [address] [place] [address] Performed By: #### 5 7021-8 ####[facility] LABCLIA [id number] [place] [address] MCHC (RBC) [Mass/Vol] 33.9 g/dL Normal 30.5-36.0 [facility] Comment on above: Order Comment: Speci men Type: BLOOD SPECIMENOrdering Facility: [facility] Address: [address] [place] [address] Performed By: #### 5 7021-8 ####[facility] LABIA [id number] [place] [address] MCV (RBC) [Entitic vol] 89.6 fL Normal 80.0-100.0 [facility] Comment on above: Order Comment: Speci men Type: BLOOD SPECIMENOrdering Facility: [facility] Address: [address] [place] [address] Performed By: #### 5 7021-8 ####[facility] LABIA [id number] [place] [address] Monocytes (Bld) [#/Vol] 0.55 10*3/uL Normal <0.87 [facility] Comment on above: Order Comment: Speci men Type: BLOOD SPECIMENOrdering Facility: [facility] Address: [address] [place] [address] Performed By: #### 5 7021-8 ####[facility] LABCLIA [id number] [place] [address] Monocytes/100 WBC (Bld) 7.4 % Normal [facility] Comment on above: Order Comment: Speci men Type: BLOOD SPECIMENOrdering Facility: [facility] Address: [address] [place] [address] Performed By: #### 5 7021-8 ####[facility] LABIA [id number] [place] [address] Neutrophils (Bld) [#/Vol] 5.70 10*3/uL Normal 1.45-7.50 [facility] Comment on above: Order Comment: Speci men Type: BLOOD SPECIMENOrdering Facility: [facility] Address: [address] [place] [address] Performed By: #### 5 7021-8 ####[facility] LABCLIA [id number] [place] [address] Neutrophils/100 WBC (Bld) 76.5 % Normal [facility] Comment on above: Order Comment: Speci men Type: BLOOD SPECIMENOrdering Facility: [facility] Address: [address] [place] [address] Performed By: #### 5 7021-8 ####[facility] LABCLIA [id number] [place] [address] Nucleated RBC (Bld) [#/Vol] 10*3/uL Normal <0.01 [facility] Comment on above: Order Comment: Speci men Type: BLOOD SPECIMENOrdering Facility: [facility] Address: [address] [place] [address] Performed By: #### 5 7021-8 ####[facility] LABCLIA [id number] [place] [address] Nucleated RBC/100 WBC (Bld) [Ratio] 0.0 /100 WBC Normal [facility] Comment on above: Order Comment: Speci men Type: BLOOD SPECIMENOrdering Facility: [facility] Address: [address] [place] [address] Performed By: #### 5 7021-8 ####[facility] LABCLIA [id number] [place] [address] Platelet mean volume (Bld) [Entitic vol] 10.1 fL Normal 9.0-12.7 [facility] Comment on above: Order Comment: Speci men Type: BLOOD SPECIMENOrdering Facility: [facility] Address: [address] [place] [address] Performed By: #### 5 7021-8 ####[facility] LABCLIA [id number] [place] [address] Platelets (Bld) [#/Vol] 219 10*3/uL Normal 150-400 [facility] Comment on above: Order Comment: Speci men Type: BLOOD SPECIMENOrdering Facility: [facility] Address: [address] [place] [address] Performed By: #### 5 7021-8 ####[facility] LABCLIA [id number] [place] [address] RBC (Bld) [#/Vol] 4.51 10*6/uL Normal 4.20-6.00 [facility] Comment on above: Order Comment: Speci men Type: BLOOD SPECIMENOrdering Facility: [facility] Address: [address] [place] [address] Performed By: #### 5 7021-8 ####[facility] LABCLIA [id number] [place] [address] WBC (Bld) [#/Vol] 7.45 10*3/uL Normal 3.70-11.00 [facility] Comment on above: Order Comment: Speci men Type: BLOOD SPECIMENOrdering Facility: [facility] Address: [address] [place] [address] Performed By: #### 5 7021-8 ####[facility] LABCLIA [id number] [place] [address] Calcium.ionized [Moles/Vol]o n 08-13-2024 Calcium.ionized (Bld) [Mass/Vol] 1.27 mmol/L Normal 1.08-1.30 [facility] Comment on above: Order Comment: Speci men Type: BLOOD SPECIMENOrdering Facility: [facility] Address: [address] [place] [address] Performed By: #### 1 995-0 ####[facility] LABCLIA [id number] [place] [address] [place] Calcium.ionized adjusted to pH 7.4 (Bld) [Moles/Vol] 1.25 mmol/L Normal 1.08-1.30 [facility] Comment on above: Order Comment: Speci men Type: BLOOD SPECIMENOrdering Facility: [facility] Address: [address] [place] [address] Performed By: #### 1 995-0 ####[facility] LABCLIA [id number] [facility]PITALSenthil [address] [address] [facility] Comprehensive metabolic 2000 panelon 08-13-2024 Albumin [Mass/Vol] 4.4 g/dL Normal 3.9-4.9 [facility] Comment on above: Order Comment: Speci men Type: BLOOD SPECIMENOrdering Facility: [facility] Address: [address] [place] [address] Performed By: #### 3 084-1, 2777-1, 253-0, 25786-7 ####[facility] LABCLIA [id number] [place] [address] ALP [Catalytic activity/Vol] 88 U/L Normal 38-113 [facility] Comment on above: Order Comment: Speci men Type: BLOOD SPECIMENOrdering Facility: [facility] Address: [address] [place] [address] Performed By: #### 3 084-1, 2777-1, 2531-0, 21872-7 ####[facility] LABCLIA [id number] [place] [address] ALT [Catalytic activity/Vol] 14 U/L Normal 10-54 [facility] Comment on above: Order Comment: Speci men Type: BLOOD SPECIMENOrdering Facility: [facility] Address: [address] [place] [address] Performed By: #### 3 084-1, 2777-1, 2531-0, 90904-2 ####[facility] LABCLIA [id number] [place] [address] Anion gap [Moles/Vol] 11 mmol/L Normal 8-15 [facility] Comment on above: Order Comment: Speci men Type: BLOOD SPECIMENOrdering Facility: [facility] Address: [address] [place] [address] Performed By: #### 3 084-1, 2777-1, 2531-0, 97796-9 ####[facility] LABCLIA [id number] [place] [address] AST [Catalytic activity/Vol] 13 U/L Low 14-40 [facility] Comment on above: Order Comment: Speci men Type: BLOOD SPECIMENOrdering Facility: [facility] Address: [address] [place] [address] Performed By: #### 3 084-1, 2777-1, 253-0, 05697-8 ####[facility] LABCLIA [id number] [place] [address] Bilirubin [Mass/Vol] 0.2 mg/dL Normal 0.2-1.3 [facility] Comment on above: Order Comment: Speci men Type: BLOOD SPECIMENOrdering Facility: [facility] Address: [address] [place] [address] Performed By: #### 3 084-1, 2777-1, 2531-0, 00514-7 ####[facility] LABIA [id number] [place] [address] Calcium [Mass/Vol] 9.2 mg/dL Normal 8.5-10.2 [facility] Comment on above: Order Comment: Speci men Type: BLOOD SPECIMENOrdering Facility: [facility] Address: [address] [place] [address] Performed By: #### 3 084-1, 2777-1, 253-0, 95904-9 ####[facility] LABCLIA [id number] [place] [address] Chloride [Moles/Vol] 105 mmol/L Normal 98-107 [facility] Comment on above: Order Comment: Speci men Type: BLOOD SPECIMENOrdering Facility: [facility] Address: [address] [place], [place] [id number] Performed By: #### 3 084-1, 2777-1, 2532-0, 70746-3 ####[facility] LABCLIA [id number] [place] [address] CO2 [Moles/Vol] 26 mmol/L Normal 22-30 [facility] Comment on above: Order Comment: Speci men Type: BLOOD SPECIMENOrdering Facility: [facility] Address: [address] [place], [place] [address] Performed By: #### 3 084-1, 2777-1, 2532-0, 84289-9 ####[facility] LABIA [id number] [place] [address] Creatinine [Mass/Vol] 1.04 mg/dL Normal 0.73-1.22 [facility] Comment on above: Order Comment: Speci men Type: BLOOD SPECIMENOrdering Facility: [facility] Address: [address] [place] [address] Performed By: #### 3 084-1, 2777-1, 2532-0, 05142-6 ####[facility] LABIA [id number] [place] [address] Creatinine and Glomerular filtration rate.predicted panel (S/P/Bld) 82 mL/min/1.73m??? Normal >=60 [facility] Comment on above: Order Comment: Speci men Type: BLOOD SPECIMENOrdering Facility: [facility] Address: [address] [place], [place] [address] Result Comment: Eladia mated Glomerular Filtration Rate (eGFR) is calculated using the 2020 CKD-EPI creatinine equation. This equation utilizes serum creatinine, sex, and age as parameters. The creatinine assay has traceable calibration to isotope dilution-mass spectrometry. Refer to KDIGO guidelines for clinical interpretation. In patients with unstable renal function, e.g. those with acute kidney injury, the eGFR may not accurately reflect actual GFR. Performed By: #### 3 084-1, 2777-1, 2532-0, 38305-0 ####[facility] LABCLIA [id number] [place] [address] Glucose [Mass/Vol] 123 mg/dL High 74-99 [facility] Comment on above: Order Comment: Speci men Type: BLOOD SPECIMENOrdering Facility: [facility] Address: [address] [place], [place] [address] Result Comment: The [place] Diabetes Association (ADA) provides guidance for cutoff values for fasting glucose and random glucose. The ADA defines fasting as no caloric intake for at least 8 hours. Fasting plasma glucose results between 100 to 125 mg/dL indicate increased risk for diabetes (prediabetes).Fasting plasma glucose results greater than or equal to 126 mg/dL meet the criteria for diagnosis of diabetes. In the absence of unequivocal hyperglycemia, results should be confirmed by repeat testing. In a patient with classic symptoms of hyperglycemia or hyperglycemic crisis, random plasma glucose results greater than or equal to 200 mg/dL meet the criteria for diagnosis of diabetes.Reference: Standards of Medical Care in Diabetes 2016, [place] Diabetes Association. Diabetes Care. 2016.39(Suppl 1). Performed By: #### 3 084-1, 2777-1, 2532-0, 37600-8 ####[facility] LABCLIA [id number] [place] [address] Potassium [Moles/Vol] 4.4 mmol/L Normal 3.7-5.1 [facility] Comment on above: Order Comment: Speci men Type: BLOOD SPECIMENOrdering Facility: [facility] Address: [address] [place] [address] Performed By: #### 3 084-1, 2777-1, 2532-0, 72830-0 ####[facility] LABIA [id number] [place] [address] Protein [Mass/Vol] 6.7 g/dL Normal 6.3-8.0 [facility] Comment on above: Order Comment: Speci men Type: BLOOD SPECIMENOrdering Facility: [facility] Address: [address] [place], [place] [address] Performed By: #### 3 084-1, 2777-1, 2532-0, 88123-2 ####[facility] LABCLIA [id number] [place] [address] Sodium [Moles/Vol] 142 mmol/L Normal 136-144 [facility] Comment on above: Order Comment: Speci men Type: BLOOD SPECIMENOrdering Facility: [facility] Address: [address] [place], [place] [address] Performed By: #### 3 084-1, 2777-1, 2532-0, 50080-2 ####[facility] LABCLIA [id number] [place] [address] Urea nitrogen [Mass/Vol] 24 mg/dL Normal 9-24 [facility] Comment on above: Order Comment: Speci men Type: BLOOD SPECIMENOrdering Facility: [facility] Address: [address] [place], [place] [address] Performed By: #### 3 084-1, 2777-1, 2532-0, 02749-0 ####[facility] LABCLIA [id number] [place] [address] Eosinophils/100 WBC Auto (Bl d)on 08-13-2024 Eosinophils/100 WBC (Bld) Automated eosinophil % [facility] Erythrocyte distribution wid th Auto (RBC) [Ratio]on 08-13-2024 Erythrocyte distribution width (RBC) [Ratio] Erythrocyte distribution width [Ratio] by Automated count 11.5-15.0 [facility] Free testosterone measuremen t by LC-MS/MSon 08-13-2024 Testosterone Free [Mass/Vol] Free testosterone measurement by LC-MS/MS 5.00-21.00 [facility] Free testosterone percentage on 08-13-2024 Testosterone Free/Testosterone.to barbara [Mass fraction] Free testosterone percentage 1.50-4.20 [facility] HBV core Ab Ser Qlon 024 HBV core Ab Ql (S) Negative Normal Negative [facility] Comment on above: Order Comment: Speci men Type: BLOOD SPECIMENOrdering Facility: [facility] Address: [address] [place] [address] Result Comment: No e vidence of current or past infection with Hepatitis B virus. Should recent infection be suspected, repeat testing may be considered 3-4 weeks after this draw. Performed By: #### 5 195-3, 31041-5, 29580-2 ####[facility] LABCLIA [id number] [place] [address] [place] HBV surface Ab Ql (S)on HBV surface Ab Qn (S) <8.00 Normal [facility] Comment on above: Order Comment: Speci men Type: BLOOD SPECIMENOrdering Facility: [facility] Address: [address] [place] [address] Result Comment: <8 m IU/mL: No serological evidence of immunity to Hepatitis B Virus.>/= 8 to <12 mIU/mL: No serological evidence of immunity to Hepatitis B Virus.>/= 12 mIU/mL: Consistent with serological evidence of immunity to Hepatitis B Virus. Performed By: #### 5 195-3, 90842-4, 30638-5 ####[facility] LABCLIA [id number] [address] [place] HBV surface Ab Ser Qlon HBV surface Ab Ql (S) Negative Normal [facility] Comment on above: Order Comment: Speci men Type: BLOOD SPECIMENOrdering Facility: [facility] Address: [address] [place] [address] Result Comment: No s erological evidence of immunity to Hepatitis B Virus. Performed By: #### 5 195-3, 54423-4, 37407-9 ####[facility] LABIA [id number] [place] [address] [place] HBV surface Ag Ser Qlon HBV surface Ag Ql (S) Negative Normal Negative [facility] Comment on above: Order Comment: Speci men Type: BLOOD SPECIMENOrdering Facility: [facility] Address: [address] [place] [address] Performed By: #### 5 195-3, 39644-9, 98546-3 ####[facility] LABCLIA [id number] [place] [address] [place] HCV Ab Ser Qlon 08-13-2024 HCV Ab Ql (S) Negative Normal Negative [facility] Comment on above: Order Comment: Speci men Type: BLOOD SPECIMENOrdering Facility: [facility] Address: [address] [place] [address] Result Comment: The result suggests no evidence of active infection with Hepatitis C virus. Should recent infection be suspected, repeat testing may be considered 4-6 weeks after this draw. Performed By: #### 1 6128-1 ####[facility] LABCLIA [id number] [place] [address] [place] Hematocrit Auto (Bld) [Volum e fraction]on 08-13-2024 Hematocrit (Bld) [Volume fraction] Hematocrit [Volume Fraction] of Blood by Automated count 39.0-51.0 [facility] Hemoglobin [Mass/volume] in Bloodon 08-13-2024 Hemoglobin (Bld) [Mass/Vol] Hemoglobin [Mass/volume] in Blood 13.0-17.0 [facility] Hepatitis B virus surface Ab [Presence] in Serumon 08-13-2024 HBV surface Ab Ql (S) Hepatitis B virus surface Ab [Presence] in Serum [facility] Comment on above: No serological evide nce of immunity to Hepatitis B Virus. Hepatitis B virus surface Ab [Units/volume] in Serumon 08-13-2024 HBV surface Ab Qn (S) Hepatitis B virus surface Ab [Units/volume] in Serum [facility] Comment on above: <8 mIU/mL: No serolo gical evidence of immunity to Hepatitis B Virus. >/= 8 to <12 mIU/mL: No serological evidence of immunity to Hepatitis B Virus. >/= 12 mIU/mL: Consistent with serological evidence of immunity to Hepatitis B Virus. Hepatitis B virus surface Ag [Presence] in Serum or Plasma by Immunoassayon 08-13-2024 HBV surface Ag IA Ql Hepatitis B virus s urface Ag [Presence] in Serum or Plasma by Immunoassay Negative [facility] IMMUNOFIXATION SCREEN, SERUM on 08-13-2024 INTERPRETATION (MPA) Atypical restricted bands are present in the IgM and kappa regions. Consistent with IgM kappa monoclonal gammopathy. Normal [facility] Comment on above: Order Comment: Speci men Type: BLOOD SPECIMENOrdering Facility: [facility] Address: [address] [place] [address] Performed By: #### I FESC ####[facility] LABCLIA [id number] [place] [address] [place] MPA RESULT M protein is present. Abnormal No M protein is identified. [facility] Comment on above: Order Comment: Speci men Type: BLOOD SPECIMENOrdering Facility: [facility] Address: [address] [place] [address] Performed By: #### I FES ####[facility] LABCLIA [id number] [address] [place] ([facility]) Reviewed by Juliane Bonner MD Normal [facility] Comment on above: Order Comment: Speci men Type: BLOOD SPECIMENOrdering Facility: [facility] Address: [address] [place] [address] Performed By: #### I FES ####[facility] LABCLIA [id number] [place] [address] [place] IMMUNOGLOBULINS,IGG,IGA,IGMo n 08-13-2024 IgA [Mass/Vol] 93 mg/dL Normal 70-400 [facility] Comment on above: Order Comment: Speci men Type: BLOOD SPECIMENOrdering Facility: [facility] Address: [address] [place] [address] Performed By: #### S ERIMM ####[facility] LABCLIA [id number] [place] [id number] [place] IgG [Mass/Vol] 627 mg/dL Low 700-1600 [facility] Comment on above: Order Comment: Speci men Type: BLOOD SPECIMENOrdering Facility: [facility] Address: [address] [place] [address] Performed By: #### S ERIMM ####[facility] LABCLIA [id number] [place] [address] [place] IgM [Mass/Vol] 108 mg/dL Normal 40-230 [facility] Comment on above: Order Comment: Speci men Type: BLOOD SPECIMENOrdering Facility: [facility] Address: [address] [place] [address] Performed By: #### S ERIMM ####[facility] LABCLIA [id number] [place] [address] [place] IgA [Mass/volume] in Serum o r Plasmaon 08-13-2024 IgA [Mass/Vol] IgA [Mass/volume] in Serum or Plasma 70-400 [facility] IgG [Mass/volume] in Serum o r Plasmaon 08-13-2024 IgG [Mass/Vol] IgG [Mass/volume] in Serum or Plasma Low 700-1600 [facility] IgM [Mass/volume] in Serum o r Plasmaon 08-13-2024 IgM [Mass/Vol] IgM [Mass/volume] in Serum or Plasma 40-230 [facility] Immunoglobulin light chains. kappa.free [Mass/volume] in Serumon 08-13-2024 Immunoglobulin light chains.kappa.free (S) [Mass/Vol] Immunoglobulin light chains.kappa.free [Mass/volume] in Serum 3.3-19.4 [facility] Comment on above: Rarely, increased se rum free light chains levels may not be detected or accurately quantified due to prozone phenomenon or in high viscosity samples using this immunoturbidimetric assay. Correlation with other laboratory results and clinical findings is recommended. The [place] Free Light Chain was performed using the Binding Site Optilite immunoturbidimetric method. Result obtained with different assay methods or kits cannot be used interchangeably. Immunoglobulin light chains. kappa.free/Immunoglobulin light chains.lambda.free [Penny 08-13-2024 Immunoglobulin light chains.kappa.free/Im munoglobulin light chains.lambda.free (S) [Mass ratio] Immunoglobulin light chains.kappa.free/Immunogl obulin light chains.lambda.free [Mass 0.26-1.65 [facility] Immunoglobulin light chains. lambda.free [Mass/volume] in Serum or Plasmaon 08-13-2024 Immunoglobulin light chains.lambda.free [Mass/Vol] Immunoglobulin light chains.lambda.free [Mass/volume] in Serum or Plasma 5.7-26.3 [facility] Comment on above: Rarely, increased se rum free light chains levels may not be detected or accurately quantified due to prozone phenomenon or in high viscosity samples using this immunoturbidimetric assay. Correlation with other laboratory results and clinical findings is recommended. The [place] Free Light Chain was performed using the Binding Site Optilite immunoturbidimetric method. Result obtained with different assay methods or kits cannot be used interchangeably. KAPPA/KING,FREE,SERon 2023 Immunoglobulin light chains.kappa.free (S) [Mass/Vol] 16.2 mg/L Normal 3.3-19.4 [facility] Comment on above: Order Comment: Speci men Type: BLOOD SPECIMENOrdering Facility: [facility] Address: [address] [place] [address] Result Comment: Rare ly, increased serum free light chains levels may not be detected or accurately quantified due to prozone phenomenon or in high viscosity samples using this immunoturbidimetric assay. Correlation with other laboratory results and clinical findings is recommended.The [place] Free Light Chain was performed using the Binding Site Optilite immunoturbidimetric method. Result obtained with different assay methods or kits cannot be used interchangeably. Performed By: #### K LFRS ####[facility] LABCLIA [id number] [place] [address] [place] Immunoglobulin light chains.kappa/Immunog lobulin light chains.lambda (S) [Mass ratio] 1.57 Normal 0.26-1.65 [facility] Comment on above: Order Comment: Speci men Type: BLOOD SPECIMENOrdering Facility: [facility] Address: [address] [place] [address] Performed By: #### K LFRS ####[facility] LABCLIA [id number] [place] [address] [place] Immunoglobulin light chains.lambda.free [Mass/Vol] 10.3 mg/L Normal 5.7-26.3 [facility] Comment on above: Order Comment: Speci men Type: BLOOD SPECIMENOrdering Facility: [facility] Address: [address] [place] [address] Result Comment: Rare ly, increased serum free light chains levels may not be detected or accurately quantified due to prozone phenomenon or in high viscosity samples using this immunoturbidimetric assay. Correlation with other laboratory results and clinical findings is recommended.The [place] Free Light Chain was performed using the Binding Site Optilite immunoturbidimetric method. Result obtained with different assay methods or kits cannot be used interchangeably. Performed By: #### K LFRS ####[facility] LABCLIA [id number] [place] [address] [place] LDH SerPl-cCncon 08-13-2024 LDH [Catalytic activity/Vol] 138 U/L Normal 135-225 [facility] Comment on above: Order Comment: Speci men Type: BLOOD SPECIMENOrdering Facility: [facility] Address: [address] [place] [address] Performed By: #### 3 084-1, 2777-1, 2532-0, 88054-9 ####[facility] LABCLIA [id number] [place] [id number] Laboratory - Chemistry and C hemistry - challengeon 08-13-2024 Albumin [Mass/Vol] 4.4 g/dL 3.9-4.9 [facility] ALP [Catalytic activity/Vol] 88 U/L 38-113 [facility] ALT [Catalytic activity/Vol] 14 U/L 10-54 [facility] AST [Catalytic activity/Vol] 13 U/L Low 14-40 [facility] Bilirubin [Mass/Vol] 0.2 mg/dL 0.2-1.3 [facility] Calcium [Mass/Vol] 9.2 mg/dL 8.5-10.2 [facility] Chloride [Moles/Vol] 105 mmol/L 98-107 [facility] CO2 [Moles/Vol] 26 mmol/L 22-30 [facility] Cobalamin (Vitamin B12) [Mass/Vol] 550 pg/mL 232-1245 [facility] Creatinine [Mass/Vol] 1.04 mg/dL 0.73-1.22 [facility] Glucose [Mass/Vol] 123 mg/dL High 74-99 [facility] Comment on above: The [place] Diabete s Association (ADA) provides guidance for cutoff values for fasting glucose and random glucose. The ADA defines fasting as no caloric intake for at least 8 hours. Fasting plasma glucose results between 100 to 125 mg/dL indicate increased risk for diabetes (prediabetes).Fasting plasma glucose results greater than or equal to 126 mg/dL meet the criteria for diagnosis of diabetes. In the absence of unequivocal hyperglycemia, results should be confirmed by repeat testing. In a patient with classic symptoms of hyperglycemia or hyperglycemic crisis, random plasma glucose results greater than or equal to 200 mg/dL meet the criteria for diagnosis of diabetes.Reference: Standards of Medical Care in Diabetes 2016, [place] Diabetes Association. Diabetes Care. 2016.39(Suppl 1). LDH [Catalytic activity/Vol] 138 U/L 135-225 [facility] Potassium [Moles/Vol] 4.4 mmol/L 3.7-5.1 [facility] Protein [Mass/Vol] 0.00 g/dL <=0.00 [facility] Sodium [Moles/Vol] 142 mmol/L 136-144 [facility] TSH Qn 0.520 m[IU]/L 0.270-4.200 [facility] Urate [Mass/Vol] 5.8 mg/dL 4.0-8.1 [facility] Urea nitrogen [Mass/Vol] 24 mg/dL 9-24 [facility] Laboratory - Hematology and Cell countson 08-13-2024 Eosinophils (Bld) [#/Vol] 0.27 10*3/uL <0.46 [facility] Immature granulocytes (Bld) [#/Vol] 0.03 10*3/uL <0.10 [facility] Immature granulocytes/100 WBC (Bld) 0.4 % [facility] Leukocytes [#/volume] correc gareth for nucleated erythrocytes in Blood by Automated counon 08-13-2024 WBC corrected for nucl RBC Auto (Bld) [#/Vol] Leukocytes [#/volume] corrected for nucleated erythrocytes in Blood by Automated coun 3.70-11.00 [facility] Lymphocytes Auto (Bld) [#/Vo l]on 08-13-2024 Lymphocytes (Bld) [#/Vol] Lymphocytes [#/volume] in Blood by Automated count Low 1.00-4.00 [facility] Lymphocytes/100 WBC Auto (Bl d)on 08-13-2024 Lymphocytes/100 WBC (Bld) Lymphocytes/100 leukocytes in Blood by Automated count [facility] MCH Auto (RBC) [Entitic mass ]on 08-13-2024 MCH (RBC) [Entitic mass] MCH [Entitic mass] by Automated count 26.0-34.0 [facility] MCHC Auto (RBC) [Mass/Vol]on 08-13-2024 MCHC (RBC) [Mass/Vol] MCHC [Mass/volume] by Automated count 30.5-36.0 [facility] MCV Auto (RBC) [Entitic vol] on 08-13-2024 MCV (RBC) [Entitic vol] MCV [Entitic volume] by Automated count 80.0-100.0 [facility] Monocytes Auto (Bld) [#/Vol] on 08-13-2024 Monocytes (Bld) [#/Vol] Automated blood monocyte count <0.87 [facility] Monocytes/100 WBC Auto (Bld) on 08-13-2024 Monocytes/100 WBC (Bld) Automated monocyte % [facility] Neutrophils Auto (Bld) [#/Vo l]on 08-13-2024 Neutrophils (Bld) [#/Vol] Neutrophils [#/volume] in Blood by Automated count 1.45-7.50 [facility] Neutrophils/100 WBC Auto (Bl d)on 08-13-2024 Neutrophils/100 WBC (Bld) Automated neutrophil % [facility] No Panel Informationon 08-13 Estimated GFR (CKD-EPI) 82 mL/min/1.73m??? >=60 [facility] Comment on above: Estimated Glomerular Filtration Rate (eGFR) is calculated using the 2020 CKD-EPI creatinine equation. This equation utilizes serum creatinine, sex, and age as parameters. The creatinine assay has traceable calibration to isotope dilution-mass spectrometry. Refer to KDIGO guidelines for clinical interpretation. In patients with unstable renal function, e.g. those with acute kidney injury, the eGFR may not accurately reflect actual GFR. Hepatitis B Core Total Antibody. Negative Negative [facility] Comment on above: No evidence of curre nt or past infection with Hepatitis B virus. Should recent infection be suspected, repeat testing may be considered 3-4 weeks after this draw. Immunofixation Interpretation [facility] Ionized Calcium (pH Adjusted) 1.25 mmol/L 1.08-1.30 [facility] Leuk/Lymph Sign Pathologist (Misc) Reviewed by Juliane Bonner MD [facility] Miscellaneous Test 6 See comment Fir [facility] Comment on above: Not Applicable. Miscellaneous Test Comment Reviewed by Juliane Bonner MD [facility] Phosphorus Level 3.4 mg/dL 2.7-4.8 [facility] Protein Electrophoresis Note No definitive M protein is identified on protein electrophoresis. No definitive M protein is identified on protein electrophor esis. [facility] Serum Immunofixation M protein is present. Abnormal No M protein is identified. [facility] Testosterone Level 566.2 ng/dL 264.0-916.0 [facility] Comment on above: This [facility] LC/MS-M S method is currently certified by the CDCHormone Standardization Program (HoSt). Adult male referenceinterval is based on a population of healthy nonobese males(BMI <30) between 19 and 39 years old. Soifa, et.al. FLCM1396,102;3821-1350. PMID: [id number]. Nucleated RBC Auto (Bld) [#/ Vol]on 08-13-2024 Nucleated RBC (Bld) [#/Vol] Nucleated erythrocytes [#/volume] in Blood by Automated count <0.01 [facility] Nucleated erythrocytes [Pres ence] in Blood by Automated counton 08-13-2024 Nucleated RBC Auto Ql (Bld) Nucleated erythrocytes [Presence] in Blood by Automated count [facility] PROTEIN ELECTROPHORESIS SERU M (P)on 08-13-2024 Albumin [Mass/Vol] 4.33 g/dL Normal 3.43-5.41 [facility] Comment on above: Order Comment: Speci men Type: BLOOD SPECIMENOrdering Facility: [facility] Address: [address] [place] [address] Performed By: #### L [id number] ####[facility] LABIA [id number] [place] [address] [place] Alpha 1 globulin Elph [Mass/Vol] 0.32 g/dL Normal 0.18-0.43 [facility] Comment on above: Order Comment: Speci men Type: BLOOD SPECIMENOrdering Facility: [facility] Address: [address] [place] [address] Performed By: #### L [id number] ####[facility] LABIA [id number] [place] [address] [place] Alpha 2 globulin Elph [Mass/Vol] 0.70 g/dL Normal 0.42-0.98 [facility] Comment on above: Order Comment: Speci men Type: BLOOD SPECIMENOrdering Facility: [facility] Address: [address] [place] [address] Performed By: #### L [id number] ####[facility] LABIA [id number] [place] [address] [place] Beta globulin Elph [Mass/Vol] 0.72 g/dL Normal 0.61-1.17 [facility] Comment on above: Order Comment: Speci men Type: BLOOD SPECIMENOrdering Facility: [facility] Address: [address] [place] [address] Performed By: #### L [id number] ####[facility] LABIA [id number] [place] [address] [place] Gamma globulin Elph [Mass/Vol] 0.53 g/dL Normal 0.53-1.51 [facility] Comment on above: Order Comment: Speci men Type: BLOOD SPECIMENOrdering Facility: [facility] Address: [address] [place] [address] Performed By: #### L [id number] ####[facility] LABCLIA [id number] [place] [address] [place] M-PROTEIN LOCATION Normal [facility] Comment on above: Order Comment: Speci men Type: BLOOD SPECIMENOrdering Facility: [facility] Address: [address] [place] [address] Result Comment: Not Applicable. Performed By: #### L [id number] ####[facility] LABCLIA [id number] [place] [address] [place] Protein Fractions [Interp] No definitive M protein is identified on protein electrophoresis. Normal No definitive M protein is identified on protein electrophor esis. [facility] Comment on above: Order Comment: Speci men Type: BLOOD SPECIMENOrdering Facility: [facility] Address: [address] [place] [address] Performed By: #### L [id number] ####[facility] LABCLIA [id number] [place] [address] [place] Protein.monoclonal Elph [Mass/Vol] 0.00 g/dL Normal <=0.00 [facility] Comment on above: Order Comment: Speci men Type: BLOOD SPECIMENOrdering Facility: [facility] Address: [address] [place], [place] [id number] Performed By: #### L [id number] ####[facility] LABCLIA [id number] [place] [address] [place] SPE STAFF REVIEW Reviewed by Juliane Bonner MD Normal [facility] Comment on above: Order Comment: Speci men Type: BLOOD SPECIMENOrdering Facility: [facility] Address: [address] [place] [address] Performed By: #### L [id number] ####[facility] LABCLIA [id number] [address] [address] [place] Phosphate SerPl-mCncon 08-13 Phosphate [Mass/Vol] 3.4 mg/dL Normal 2.7-4.8 [facility] Comment on above: Order Comment: Speci men Type: BLOOD SPECIMENOrdering Facility: [facility] Address: [address] [place], [place] [address] Performed By: #### 3 084-1, 2777-1, 2532-0, 91570-6 ####[facility] LABCLIA [id number] [place] [address] Platelet mean volume Auto (B ld) [Entitic vol]on 08-13-2024 Platelet mean volume (Bld) [Entitic vol] Platelet mean volume [Entitic volume] in Blood by Automated count 9.0-12.7 [facility] Platelets Auto (Bld) [#/Vol] on 08-13-2024 Platelets (Bld) [#/Vol] Platelets [#/volume] in Blood by Automated count 150-400 [facility] Prot SerPl-mCncon 08-13-2024 Protein [Mass/Vol] 6.6 g/dL Normal 6.3-8.0 [facility] Comment on above: Order Comment: Speci men Type: BLOOD SPECIMENOrdering Facility: [facility] Address: [address] [place], [place] [address] [id number] Performed By: #### 1 952-1, 2885-2, 3016-3, 2132-9 ####[facility] LABCLIA [id number] [place] [id number] [place] Protein [Mass/volume] in Ser um or Plasmaon 08-13-2024 Protein [Mass/Vol] Protein [Mass/volume ] in Serum or Plasma 6.3-8.0 [facility] Quantitative serum viscosity measurementon 08-13-2024 Viscosity (S) [Visc] Quantitative serum viscosity measurement <=1.50 [facility] Comment on above: INTERPRETIVE INFORMA TION: Viscosity, SerumIncreased viscosity is associated with disorders such as monoclonal gammopathy, macroglobulinemia, and multiple myeloma. Significantly elevated viscosity (>3.0 cP) is associated with clinical symptoms of hyperviscosity syndrome.This test was developed and its performance characteristics determined by [facility]. It has not been cleared or approved by the [place] Food and Drug Administration. This test was performed in a CLIA certified laboratory and is intended for clinical purposes.Performed By: V[facility]van[facility] [place] [id number] Director: Donald Banda MD, PhDCLIA Number: [id number] RBC Auto (Bld) [#/Vol]on RBC (Bld) [#/Vol] Erythrocytes [#/volu me] in Blood by Automated count 4.20-6.00 [facility] SERUM VISCOSITYon 08-13-2024 VISCOSITY, SERUM 1.09 cP Normal <=1.50 [facility] Comment on above: Order Comment: Speci men Type: BLOOD SPECIMENOrdering Facility: [facility] Address: [address] [place] [address] Result Comment: INTE RPRETIVE INFORMATION: Viscosity, SerumIncreased viscosity is associated with disorders such asmonoclonal gammopathy, macroglobulinemia, and multiple myeloma.Significantly elevated viscosity (>3.0 cP) is associated withclinical symptoms of hyperviscosity syndrome.This test was developed and its performance characteristicsdetermined by [facility]. It has not been cleared orapproved by the [place] Food and Drug Administration. This test wasperformed in a CLIA certified laboratory and is intended forclinical purposes.Performed By: [facility] [place] [id number] Director: Donald Banda MD, PhDCLIA Number: [id number] Performed By: #### S ERVIS ####[facility] [id number] [place] [address] Serum ionized calcium measur ement using ion specific electrode (mass/volume)on 08-13-2024 Calcium.ionized ISE [Mass/Vol] Serum ionized calcium measurement using ion specific electrode (mass/volume) 1.08-1.30 [facility] Serum or plasma alpha 1 glob ulin measurement by electrophoresis (mass/volume)on 08-13-2024 Alpha 1 globulin Elph [Mass/Vol] Serum or plasma alpha 1 globulin measurement by electrophoresis (mass/volume) 0.18-0.43 [facility] Serum or plasma alpha 2 glob ulin measurement by electrophoresis (mass/volume)on 08-13-2024 Alpha 2 globulin Elph [Mass/Vol] Serum or plasma alpha 2 globulin measurement by electrophoresis (mass/volume) 0.42-0.98 [facility] Serum or plasma anion gap de terminationon 08-13-2024 Anion gap [Moles/Vol] Serum or plasma anion gap determination 8-15 [facility] Serum or plasma beta globuli n measurement by electrophoresis (mass/volume)on 08-13-2024 Beta globulin Elph [Mass/Vol] Serum or plasma beta globulin measurement by electrophoresis (mass/volume) 0.61-1.17 [facility] Serum or plasma fjdp-7-pdnbi globulin measurement (mass/volume)on 08-13-2024 Lwhw-3-Cgkumiqlsyxgs [Mass/Vol] Serum or plasma pupc-9-udadauqzxzltd measurement (mass/volume) <3.1 [facility] Comment on above: Beta-2 Microglobulin test is performed using the [employer] immunoturbidimetric method. Results obtained with different methods or kits cannot be used interchangeably. Serum or plasma gamma globul in measurement by electrophoresis (mass/volume)on 08-13-2024 Gamma globulin Elph [Mass/Vol] Serum or plasma gamma globulin measurement by electrophoresis (mass/volume) 0.53-1.51 [facility] Serum or plasma hepatitis C virus antibody signal/cutoff ratio by immunoassay (relation 08-13-2024 HCV Ab Signal/Cutoff IA [Rel units/Vol] Serum or plasma hepatitis C virus antibody signal/cutoff ratio by immunoassay (relati Negative [facility] Comment on above: The result suggests no evidence of active infection with Hepatitis C virus. Should recent infection be suspected, repeat testing may be considered 4-6 weeks after this draw. TESTOSTERONE, FREE AND TOTAL , BY EQUILIBRIUM ULTRAFILTRATION MASS SPECTROMETRYon 08-13-2024 Testosterone [Mass/Vol] 566.2 ng/dL Normal 264.0-916.0 [facility] Comment on above: Order Comment: Speci men Type: BLOOD SPECIMENOrdering Facility: [facility] Address: [address] [place] [address] Result Comment: This [facility] LC/MS-MS method is currently certified by the CDCHormone Standardization Program (HoSt). Adult male referenceinterval is based on a population of healthy nonobese males(BMI <30) between 19 and 39 years old. Sofia et.al. FYKA4904,102;2473-0916. PMID: [id number]. Performed By: #### T FTEST ####[facility] LABCLIA [id number] [place] [address] Testosterone Free [Mass/Vol] 17.84 ng/dL Normal 5.00-21.00 [facility] Comment on above: Order Comment: Speci men Type: BLOOD SPECIMENOrdering Facility: [facility] Address: [address] [place] [address] Performed By: #### T FTEST ####[facility] LABCLIA [id number] [place] [address] Testosterone Free/Testosterone.to barbara [Mass fraction] 3.15 % Normal 1.50-4.20 [facility] Comment on above: Order Comment: Speci men Type: BLOOD SPECIMENOrdering Facility: [facility] Address: [address] [place] [address] Performed By: #### T FTEST ####[facility] LABCLIA [id number] [place] [address] TSH SerPl-aCncon 08-13-2024 TSH Qn 0.520 m[IU]/L Normal 0.270-4.200 [facility] Comment on above: Order Comment: Speci men Type: BLOOD SPECIMENOrdering Facility: [facility] Address: [address] [place] [address] Performed By: #### 1 952-1, 2885-2, 3016-3, 2132-06 ####[facility] LABCLIA [id number] [place] [id number] [place] Urate [facility] 4 Urate [Mass/Vol] 5.8 mg/dL Normal 4.0-8.1 [facility] Comment on above: Order Comment: Speci men Type: BLOOD SPECIMENOrdering Facility: [facility] Address: [address] [place] [address] Performed By: #### 3 084-1, 2777-1, 2532-0, 79396-9 ####[facility] LABCLIA [id number] [place] [id number] Vit B12 SerP[facility] 024 Cobalamin (Vitamin B12) [Mass/Vol] 550 pg/mL Normal 232-1245 [facility] Comment on above: Order Comment: Speci men Type: BLOOD SPECIMENOrdering Facility: [facility] Address: [address] [place] [address] Performed By: #### 1 952-1, 2885-2, 3016-3, 2132-06 ####[facility] LABCLIA [id number] [place] [address] [place] CNOVSPon 07-31-2024 CNOVSP Normal [facility] B2 Microglob [facility] Eymh-3-Doufpduvtxzys [Mass/Vol] 1.6 ug/mL Normal <3.1 [facility] Comment on above: Order Comment: Speci men Type: BLOOD SPECIMENOrdering Facility: [facility] Address: [address] [place] [address] Result Comment: Beta -2 Microglobulin test is performed using the [employer] immunoturbidimetric method. Results obtained with different methods or kits cannot be used interchangeably. Performed By: #### 1 952-1, 2885-2 ####[facility] LABCLIA [id number] [place] [address] [place] CBC W Auto Differential pane l (Bld)on 07-24-2024 Basophils (Bld) [#/Vol] 0.04 10*3/uL Normal <0.11 [facility] Comment on above: Order Comment: Speci men Type: BLOOD SPECIMENOrdering Facility: [facility] Address: [address] [place] [address] Performed By: #### 5 7021-8 ####[facility] LABCLIA [id number] [place] [address] Basophils/100 WBC (Bld) 0.6 % Normal [facility] Comment on above: Order Comment: Speci men Type: BLOOD SPECIMENOrdering Facility: [facility] Address: [address] [place] [address] Performed By: #### 5 7021-8 ####[facility] LABCLIA [id number] [place] [address] Differential cell count method Nom (Bld) Auto Normal [facility] Comment on above: Order Comment: Speci men Type: BLOOD SPECIMENOrdering Facility: [facility] Address: [address] [place] [address] Performed By: #### 5 7021-8 ####[facility] LABCLIA [id number] [place] [address] Eosinophils (Bld) [#/Vol] 0.34 10*3/uL Normal <0.46 [facility] Comment on above: Order Comment: Speci men Type: BLOOD SPECIMENOrdering Facility: [facility] Address: [address] [place] [address] Performed By: #### 5 7021-8 ####[facility] LABCLIA [id number] [place] [address] Eosinophils/100 WBC (Bld) 5.4 % Normal [facility] Comment on above: Order Comment: Speci men Type: BLOOD SPECIMENOrdering Facility: [facility] Address: [address] [place] [address] Performed By: #### 5 7021-8 ####[facility] LABCLIA [id number] [place] [address] Erythrocyte distribution width (RBC) [Ratio] 13.3 % Normal 11.5-15.0 [facility] Comment on above: Order Comment: Speci men Type: BLOOD SPECIMENOrdering Facility: [facility] Address: [address] [place] [address] Performed By: #### 5 7021-8 ####[facility] LABCLIA [id number] [place] [address] Hematocrit (Bld) [Volume fraction] 41.3 % Normal 39.0-51.0 [facility] Comment on above: Order Comment: Speci men Type: BLOOD SPECIMENOrdering Facility: [facility] Address: [address] [place] [address] Performed By: #### 5 7021-8 ####[facility] LABCLIA [id number] [place] [address] Hemoglobin (Bld) [Mass/Vol] 14.2 g/dL Normal 13.0-17.0 [facility] Comment on above: Order Comment: Speci men Type: BLOOD SPECIMENOrdering Facility: [facility] Address: [address] [place] [address] Performed By: #### 5 7021-8 ####[facility] LABCLIA [id number] [place] [address] Immature granulocytes (Bld) [#/Vol] 10*3/uL Normal <0.10 [facility] Comment on above: Order Comment: Speci men Type: BLOOD SPECIMENOrdering Facility: [facility] Address: [address] [place] [address] Performed By: #### 5 7021-8 ####[facility] LABCLIA [id number] [place] [address] Immature granulocytes/100 WBC (Bld) 0.3 % Normal [facility] Comment on above: Order Comment: Speci men Type: BLOOD SPECIMENOrdering Facility: [facility] Address: [address] [place] [address] Performed By: #### 5 7021-8 ####[facility] LABCLIA [id number] [place] [address] Lymphocytes (Bld) [#/Vol] 0.83 10*3/uL Low 1.00-4.00 [facility] Comment on above: Order Comment: Speci men Type: BLOOD SPECIMENOrdering Facility: [facility] Address: [address] [place] [address] Performed By: #### 5 7021-8 ####[facility] LABCLIA [id number] [place] [address] Lymphocytes/100 WBC (Bld) 13.2 % Normal [facility] Comment on above: Order Comment: Speci men Type: BLOOD SPECIMENOrdering Facility: [facility] Address: [address] [place] [address] Performed By: #### 5 7021-8 ####[facility] LABCLIA [id number] [place] [address] MCH (RBC) [Entitic mass] 30.9 pg Normal 26.0-34.0 [facility] Comment on above: Order Comment: Speci men Type: BLOOD SPECIMENOrdering Facility: [facility] Address: [address] [place] [address] Performed By: #### 5 7021-8 ####[facility] LABCLIA [id number] [place] [address] MCHC (RBC) [Mass/Vol] 34.4 g/dL Normal 30.5-36.0 [facility] Comment on above: Order Comment: Speci men Type: BLOOD SPECIMENOrdering Facility: [facility] Address: [address] [place] [address] Performed By: #### 5 7021-8 ####[facility] LABCLIA [id number] [place] [address] MCV (RBC) [Entitic vol] 90.0 fL Normal 80.0-100.0 [facility] Comment on above: Order Comment: Speci men Type: BLOOD SPECIMENOrdering Facility: [facility] Address: [address] [place] [address] Performed By: #### 5 7021-8 ####[facility] LABCLIA [id number] [place] [address] Monocytes (Bld) [#/Vol] 0.53 10*3/uL Normal <0.87 [facility] Comment on above: Order Comment: Speci men Type: BLOOD SPECIMENOrdering Facility: [facility] Address: [address] [place] [address] Performed By: #### 5 7021-8 ####[facility] LABCLIA [id number] [place] [address] Monocytes/100 WBC (Bld) 8.5 % Normal [facility] Comment on above: Order Comment: Speci men Type: BLOOD SPECIMENOrdering Facility: [facility] Address: [address] [place] [address] Performed By: #### 5 7021-8 ####[facility] LABCLIA [id number] [place] [address] Neutrophils (Bld) [#/Vol] 4.51 10*3/uL Normal 1.45-7.50 [facility] Comment on above: Order Comment: Speci men Type: BLOOD SPECIMENOrdering Facility: [facility] Address: [address] [place] [address] Performed By: #### 5 7021-8 ####[facility] LABIA [id number] [place] [address] Neutrophils/100 WBC (Bld) 72.0 % Normal [facility] Comment on above: Order Comment: Speci men Type: BLOOD SPECIMENOrdering Facility: [facility] Address: [address] [place] [address] Performed By: #### 5 7021-8 ####[facility] LABCLIA [id number] [place] [address] Nucleated RBC (Bld) [#/Vol] 10*3/uL Normal <0.01 [facility] Comment on above: Order Comment: Speci men Type: BLOOD SPECIMENOrdering Facility: [facility] Address: [address] [place] [address] Performed By: #### 5 7021-8 ####[facility] LABCLIA [id number] [place] [address] Nucleated RBC/100 WBC (Bld) [Ratio] 0.0 /100 WBC Normal [facility] Comment on above: Order Comment: Speci men Type: BLOOD SPECIMENOrdering Facility: [facility] Address: [address] [place] [address] Performed By: #### 5 7021-8 ####[facility] LABCLIA [id number] [place] [address] Platelet mean volume (Bld) [Entitic vol] 9.8 fL Normal 9.0-12.7 [facility] Comment on above: Order Comment: Speci men Type: BLOOD SPECIMENOrdering Facility: [facility] Address: [address] [place] [address] Performed By: #### 5 7021-8 ####[facility] LABCLIA [id number] [place] [address] Platelets (Bld) [#/Vol] 234 10*3/uL Normal 150-400 [facility] Comment on above: Order Comment: Speci men Type: BLOOD SPECIMENOrdering Facility: [facility] Address: [address] [place] [address] Performed By: #### 5 7021-8 ####[facility] LABCLIA [id number] [place] [address] RBC (Bld) [#/Vol] 4.59 10*6/uL Normal 4.20-6.00 [facility] Comment on above: Order Comment: Speci men Type: BLOOD SPECIMENOrdering Facility: [facility] Address: [address] [place] [address] Performed By: #### 5 7021-8 ####[facility] LABCLIA [id number] [place] [address] WBC (Bld) [#/Vol] 6.27 10*3/uL Normal 3.70-11.00 [facility] Comment on above: Order Comment: Speci men Type: BLOOD SPECIMENOrdering Facility: [facility] Address: [address] [place] [address] Performed By: #### 5 7021-8 ####[facility] LABCLIA [id number] [place] [address] Calcium.ionized [Moles/Vol]o n 07-24-2024 Calcium.ionized (Bld) [Mass/Vol] 1.22 mmol/L Normal 1.08-1.30 [facility] Comment on above: Order Comment: Speci men Type: BLOOD SPECIMENOrdering Facility: [facility] Address: [address] [place] [address] Performed By: #### 1 995-0 ####[facility] LABCLIA [id number] [address] [place] Calcium.ionized adjusted to pH 7.4 (Bld) [Moles/Vol] 1.20 mmol/L Normal 1.08-1.30 [facility] Comment on above: Order Comment: Speci men Type: BLOOD SPECIMENOrdering Facility: [facility] Address: [address] [place] [address] Performed By: #### 1 995-0 ####[facility] LABCLIA [id number] [place] [address] [place] Comprehensive metabolic 2000 panelon 10-17-2024 Albumin [Mass/Vol] 4.5 g/dL Normal 3.9-4.9 [facility] Comment on above: Order Comment: Speci men Type: BLOOD SPECIMENOrdering Facility: [facility] Address: [address] [place] [address] Performed By: #### 2 532-0, 1, ####[facility] LABCLIA [id number] [place] [address] ALP [Catalytic activity/Vol] 92 U/L Normal 38-113 [facility] Comment on above: Order Comment: Speci men Type: BLOOD SPECIMENOrdering Facility: [facility] Address: [address] [place] [address] Performed By: #### 2 532-0, 1, ####[facility] LABCLIA [id number] [place] [address] ALT [Catalytic activity/Vol] 21 U/L Normal 10-54 [facility] Comment on above: Order Comment: Speci men Type: BLOOD SPECIMENOrdering Facility: [facility] Address: [address] [place] [address] Performed By: #### 2 532-0, 2776-10, ####[facility] LABCLIA [id number] [place] [address] Anion gap [Moles/Vol] 10 mmol/L Normal 8-15 [facility] Comment on above: Order Comment: Speci men Type: BLOOD SPECIMENOrdering Facility: [facility] Address: [address] [place] [address] Performed By: #### 2 532-0, 2776-10, ####[facility] LABIA [id number] [place] [address] AST [Catalytic activity/Vol] 30 U/L Normal 14-40 [facility] Comment on above: Order Comment: Speci men Type: BLOOD SPECIMENOrdering Facility: [facility] Address: [address] [place] [address] Performed By: #### 2 532-0, 277-1, 73102-5 ####[facility] LABCLIA [id number] [place] [address] Bilirubin [Mass/Vol] 0.2 mg/dL Normal 0.2-1.3 [facility] Comment on above: Order Comment: Speci men Type: BLOOD SPECIMENOrdering Facility: [facility] Address: [address] [place] [address] Performed By: #### 2 532-0, 277-1, ####[facility] LABCLIA [id number] [place] [address] Calcium [Mass/Vol] 9.6 mg/dL Normal 8.5-10.2 [facility] Comment on above: Order Comment: Speci men Type: BLOOD SPECIMENOrdering Facility: [facility] Address: [address] [place] [address] Performed By: #### 2 532-0, 277-1, ####[facility] LABIA [id number] [place] [address] Chloride [Moles/Vol] 105 mmol/L Normal 98-107 [facility] Comment on above: Order Comment: Speci men Type: BLOOD SPECIMENOrdering Facility: [facility] Address: [address] [place] [address] Performed By: #### 2 532-0, 277-, ####[facility] LABCLIA [id number] [place] [address] CO2 [Moles/Vol] 26 mmol/L Normal 22-30 [facility] Comment on above: Order Comment: Speci men Type: BLOOD SPECIMENOrdering Facility: [facility] Address: [address] [place] [address] Performed By: #### 2 532-0, 277-1, ####[facility] LABCLIA [id number] [place] [address] Creatinine [Mass/Vol] 0.86 mg/dL Normal 0.73-1.22 [facility] Comment on above: Order Comment: Johana baldwin Type: BLOOD SPECIMENOrdering Facility: [facility] Address: [address] [place] [address] Performed By: #### 2 532-0, 2777-1, 69062-4 ####[facility] LABCLIA [id number] [place] [address] Creatinine and Glomerular filtration rate.predicted panel (S/P/Bld) 99 mL/min/1.73m??? Normal >=60 [facility] Comment on above: Order Comment: Johana baldwin Type: BLOOD SPECIMENOrdering Facility: [facility] Address: [address] [place] [address] Result Comment: Eladia mated Glomerular Filtration Rate (eGFR) is calculated using the 2020 CKD-EPI creatinine equation. This equation utilizes serum creatinine, sex, and age as parameters. The creatinine assay has traceable calibration to isotope dilution-mass spectrometry. Refer to KDIGO guidelines for clinical interpretation. In patients with unstable renal function, e.g. those with acute kidney injury, the eGFR may not accurately reflect actual GFR. Performed By: #### 2 532-0, 2777-1, 18370-9 ####[facility] LABCLIA [id number] [place] [address] Glucose [Mass/Vol] 132 mg/dL High 74-99 [facility] Comment on above: Order Comment: Johana denny Type: BLOOD SPECIMENOrdering Facility: [facility] Address: [address] [place] [address] Result Comment: The [place] Diabetes Association (ADA) provides guidance for cutoff values for fasting glucose and random glucose. The ADA defines fasting as no caloric intake for at least 8 hours. Fasting plasma glucose results between 100 to 125 mg/dL indicate increased risk for diabetes (prediabetes).Fasting plasma glucose results greater than or equal to 126 mg/dL meet the criteria for diagnosis of diabetes. In the absence of unequivocal hyperglycemia, results should be confirmed by repeat testing. In a patient with classic symptoms of hyperglycemia or hyperglycemic crisis, random plasma glucose results greater than or equal to 200 mg/dL meet the criteria for diagnosis of diabetes.Reference: Standards of Medical Care in Diabetes 2016, [place] [employer] Association. Diabetes Care. 2016.39(Suppl 1). Performed By: #### 2 532-0, 2777-1, ####[facility] LABCLIA [id number] [place] [address] Potassium [Moles/Vol] 4.2 mmol/L Normal 3.7-5.1 [facility] Comment on above: Order Comment: Speci men Type: BLOOD SPECIMENOrdering Facility: [facility] Address: [address] [place] [address] Performed By: #### 2 532-0, 2771, ####[facility] LABIA [id number] [place] [address] Protein [Mass/Vol] 7.0 g/dL Normal 6.3-8.0 [facility] Comment on above: Order Comment: Speci men Type: BLOOD SPECIMENOrdering Facility: [facility] Address: [address] [place] [address] Performed By: #### 2 532-0, 2776-10, ####[facility] LABCLIA [id number] [place] [address] Sodium [Moles/Vol] 141 mmol/L Normal 136-144 [facility] Comment on above: Order Comment: Speci men Type: BLOOD SPECIMENOrdering Facility: [facility] Address: [address] [place] [address] Performed By: #### 2 532-0, 2776-10, ####[facility] LABCLIA [id number] [place] [address] Urea nitrogen [Mass/Vol] 21 mg/dL Normal 9-24 [facility] Comment on above: Order Comment: Speci men Type: BLOOD SPECIMENOrdering Facility: [facility] Address: [address] [place] [address] Performed By: #### 2 532-0, 2777-1, 10142-7 ####[facility] LABCLIA [id number] [place] [address] IMMUNOFIXATION SCREEN, SERUM on 07-24-2024 INTERPRETATION (MPA) Atypical restricted bands are present in the IgM and kappa regions. Consistent with IgM kappa monoclonal gammopathy. Normal [facility] Comment on above: Order Comment: Speci men Type: BLOOD SPECIMENOrdering Facility: [facility] Address: [address] [place] [address] Performed By: #### I FES ####[facility] LABCLIA [id number] [place] [address] [place] MPA RESULT M protein is present. Abnormal No M protein is identified. [facility] Comment on above: Order Comment: Speci men Type: BLOOD SPECIMENOrdering Facility: [facility] Address: [address] [place] [address] Performed By: #### I FES ####[facility] LABCLIA [id number] [place] [address] [place] STAFF REVIEW ([facility]) Reviewed by Yajaira metz M.D. Normal [facility] Comment on above: Order Comment: Speci men Type: BLOOD SPECIMENOrdering Facility: [facility] Address: [address] [place] [address] Performed By: #### I FESC ####[facility] LABCLIA [id number] [place] [address] [place] IMMUNOGLOBULINS,IGG,IGA,IGMo n 07-24-2024 IgA [Mass/Vol] 89 mg/dL Normal 70-400 [facility] Comment on above: Order Comment: Speci men Type: BLOOD SPECIMENOrdering Facility: [facility] Address: [address] [place] [address] Performed By: #### S ERIMM ####[facility] LABCLIA [id number] [place] [address] [place] IgG [Mass/Vol] 606 mg/dL Low 700-1600 [facility] Comment on above: Order Comment: Speci men Type: BLOOD SPECIMENOrdering Facility: [facility] Address: [address] [place] [address] Performed By: #### S ERIMM ####[facility] LABCLIA [id number] [place] [address] [place] IgM [Mass/Vol] 101 mg/dL Normal 40-230 [facility] Comment on above: Order Comment: Speci men Type: BLOOD SPECIMENOrdering Facility: [facility] Address: [address] [place] [address] Performed By: #### S ERIMM ####[facility] LABCLIA [id number] [place] [address] [place] KAPPA/KING,FREE,SERon 2023 Immunoglobulin light chains.kappa.free (S) [Mass/Vol] 17.2 mg/L Normal 3.3-19.4 [facility] Comment on above: Order Comment: Speci men Type: BLOOD SPECIMENOrdering Facility: [facility] Address: [address] [place] [address] Result Comment: Rare ly, increased serum free light chains levels may not be detected or accurately quantified due to prozone phenomenon or in high viscosity samples using this immunoturbidimetric assay. Correlation with other laboratory results and clinical findings is recommended.The [place] Free Light Chain was performed using the Binding Site Optilite immunoturbidimetric method. Result obtained with different assay methods or kits cannot be used interchangeably. Performed By: #### K LFRS ####[facility] LABCLIA [id number] [place] [address] [place] Immunoglobulin light chains.kappa/Immunog lobulin light chains.lambda (S) [Mass ratio] 1.62 Normal 0.26-1.65 [facility] Comment on above: Order Comment: Speci men Type: BLOOD SPECIMENOrdering Facility: [facility] Address: [address] [place] [address] Performed By: #### K LFRS ####[facility] LABCLIA [id number] [place] [address] [place] Immunoglobulin light chains.lambda.free [Mass/Vol] 10.6 mg/L Normal 5.7-26.3 [facility] Comment on above: Order Comment: Speci men Type: BLOOD SPECIMENOrdering Facility: [facility] Address: [address] [place] [address] Result Comment: Rare ly, increased serum free light chains levels may not be detected or accurately quantified due to prozone phenomenon or in high viscosity samples using this immunoturbidimetric assay. Correlation with other laboratory results and clinical findings is recommended.The [place] Free Light Chain was performed using the Binding Site Optilite immunoturbidimetric method. Result obtained with different assay methods or kits cannot be used interchangeably. Performed By: #### K LFRS ####[facility] LABCLIA [id number] [place] [address] [place] LDH SerPl-cCncon 07-24-2024 LDH [Catalytic activity/Vol] 178 U/L Normal 135-225 [facility] Comment on above: Order Comment: Speci men Type: BLOOD SPECIMENOrdering Facility: [facility] Address: [address] [place] [address] Result Comment: Hemo lysis present. The origin of the hemolysis, in vitro versus an in vivo hemolytic process, cannot be distinguished via this assay alone. In vitro hemolysis may lead to non-physiological (spurious) elevation in lactate dehydrogenase (LDH) results. Theresult should be interpreted in context of the clinical setting and other test results. Suggest reorder as clinically indicated. Performed By: #### 2 532-0, 2777-1, 44836-2 ####[facility] LABCLIA [id number] [place] [address] PROTEIN ELECTROPHORESIS SERU M (P)on 07-24-2024 Albumin [Mass/Vol] 4.43 g/dL Normal 3.43-5.41 [facility] Comment on above: Order Comment: Speci men Type: BLOOD SPECIMENOrdering Facility: [facility] Address: [address] [place] [address] Performed By: #### L [id number] ####[facility] LABIA [id number] [place] [address] [place] Alpha 1 globulin Elph [Mass/Vol] 0.36 g/dL Normal 0.18-0.43 [facility] Comment on above: Order Comment: Speci men Type: BLOOD SPECIMENOrdering Facility: [facility] Address: [address] [place] [address] Performed By: #### L [id number] ####[facility] LABIA [id number] [place] [address] [place] Alpha 2 globulin Elph [Mass/Vol] 0.74 g/dL Normal 0.42-0.98 [facility] Comment on above: Order Comment: Speci men Type: BLOOD SPECIMENOrdering Facility: [facility] Address: [address] [place] [address] Performed By: #### L [id number] ####[facility] LABIA [id number] [place] [address] [place] Beta globulin Elph [Mass/Vol] 0.73 g/dL Normal 0.61-1.17 [facility] Comment on above: Order Comment: Speci men Type: BLOOD SPECIMENOrdering Facility: [facility] Address: [address] [place] [address] Performed By: #### L [id number] ####[facility] LABCLIA [id number] [place] [address] [place] Gamma globulin Elph [Mass/Vol] 0.54 g/dL Normal 0.53-1.51 [facility] Comment on above: Order Comment: Speci men Type: BLOOD SPECIMENOrdering Facility: [facility] Address: [address] [place] [address] Performed By: #### L [id number] ####[facility] LABCLIA [id number] [place] [address] [place] M-PROTEIN LOCATION Normal [facility] Comment on above: Order Comment: Speci men Type: BLOOD SPECIMENOrdering Facility: [facility] Address: [address] [place] [address] Result Comment: Not Applicable. Performed By: #### L [id number] ####[facility] LABIA [id number] [place] [address] [place] Protein Fractions [Interp] No definitive M protein is identified on protein electrophoresis. Normal No definitive M protein is identified on protein electrophor esis. [facility] Comment on above: Order Comment: Speci men Type: BLOOD SPECIMENOrdering Facility: [facility] Address: [address] [place] [address] Performed By: #### L [id number] ####[facility] LABCLIA [id number] [place] [address] [place] Protein.monoclonal Elph [Mass/Vol] 0.00 g/dL Normal <=0.00 [facility] Comment on above: Order Comment: Speci men Type: BLOOD SPECIMENOrdering Facility: [facility] Address: [address] [place] [address] Performed By: #### L [id number] ####[facility] LABCLIA [id number] [place] [address] [place] SPE STAFF REVIEW Reviewed by Yajaira metz M.D. Normal [facility] Comment on above: Order Comment: Speci men Type: BLOOD SPECIMENOrdering Facility: [facility] Address: [address] [place] [address] Performed By: #### L [id number] ####[facility] LABCLIA [id number] [address] [address] [place] Phosphate SerPl-mCncon 07-24 Phosphate [Mass/Vol] 3.4 mg/dL Normal 2.7-4.8 [facility] Comment on above: Order Comment: Speci men Type: BLOOD SPECIMENOrdering Facility: [facility] Address: [address] [place] [address] Performed By: #### 2 532-0, 2777-1, 58808-1 ####[facility] LABCLIA [id number] [place] [id number] Prot SerPl-mCncon 07-24-2024 Protein [Mass/Vol] 6.8 g/dL Normal 6.3-8.0 [facility] Comment on above: Order Comment: Speci men Type: BLOOD SPECIMENOrdering Facility: [facility] Address: [address] [place] [address] Performed By: #### 1 952-1, 2885-2 ####[facility] LABCLIA [id number] [place] [address] [place] SERUM VISCOSITYon 07-24-2024 VISCOSITY, SERUM 1.10 cP Normal <=1.50 [facility] Comment on above: Order Comment: Speci men Type: BLOOD SPECIMENOrdering Facility: [facility] Address: [address] [place] [address] Result Comment: INTE RPRETIVE INFORMATION: Viscosity, SerumIncreased viscosity is associated with disorders such asmonoclonal gammopathy, macroglobulinemia, and multiple myeloma.Significantly elevated viscosity (>3.0 cP) is associated withclinical symptoms of hyperviscosity syndrome.This test was developed and its performance characteristicsdetermined by [facility]. It has not been cleared orapproved by the [place] Food and Drug Administration. This test wasperformed in a CLIA certified laboratory and is intended forclinical purposes.Performed By: [facility] [place] [id number] Director: Donald Banda MD, PhDCLIA Number: [id number] Performed By: #### S ERVIS ####[facility] [id number] [place] [address] Surgical Pathologyon 024 Surgical Pathology Normal [facility] Comment on above: Result Comment: [facility] [facility] [address] [place] [address] Surgical Pathology Consultation Patient Name:KODI RIVAS:1965 (Age: 59)Gender:MTaken:06/24/2024eported:06/27/2024hysician(s):Alessandro Saravia MD ([phone])Copy To: Rec. #:[id number]: #[id number] Final Pathologic Diagnosis Right chest, biopsy: Ruptured epidermal inclusion cyst. Report Electronically Signed Out gr06/27/2024Van Sutton MD Interpretation performed at [facility], [address] [place] [address], License number: [id number]. Clinical History Ruptured epidermoid cyst. Gross Description Received in formalin labeled padilla RIVAS right upper chest is a daley-keene, wrinkled, unoriented ellipse of skin, 1.4 x 0.6 cm, resected with fibrous tissue, up to 0.7 cm in thickness. The skin is remarkable for a focal 0.3 cm crusted area. The specimen is inked black and sectioned to reveal daley-keene to yellow, fibrous, dull and uniform cut surfaces. The polar tips are submitted intact in cassette A with the trisected center of the specimen submitted in cassette B. (2, ns, [id number], A???B, m2) ANAI kim/06/25/2024EAK Specimen(s) Received Right chest Fee Codes(s): 1; [address] Basophils Auto (Bld) [#/Vol] on 06-20-2024 Basophils (Bld) [#/Vol] 0.1 10 3/uL 0.0-0.1 [facility] Basophils/100 WBC Auto (Bld) on 06-20-2024 Basophils/100 WBC (Bld) 0.7 % 0.2-2.0 [facility] Cholesterol in LDL Calc [Mas s/Vol]on 06-20-2024 Cholesterol in LDL [Mass/Vol] 159.0 mg/dL [facility] Comment on above: <100 mg/dl [id number] 0-129 mg/dl NEAR OR ABOVE [id number] mg/dl BORDERLINE [id number] mg/dl HIGH>190 mg/dl VERY HIGH Cholesterol in VLDL Calc [Ma ss/Vol]on 06-20-2024 Cholesterol in VLDL [Mass/Vol] 13.0 mg/dL [facility] Eosinophils/100 WBC Auto (Bl d)on 06-20-2024 Eosinophils/100 WBC (Bld) 5.1 % 0.9-7.0 [facility] Erythrocyte distribution wid th Auto (RBC) [Ratio]on 06-20-2024 Erythrocyte distribution width (RBC) [Ratio] 13.2 % 11.0-15.0 [facility] Estimated glomerular filtrat ion rate (GFR) non- Americanon 06-20-2024 GFR/1.73 sq M.predicted among non-blacks MDRD (S/P/Bld) [Vol rate/Area] mL/min/{1.73_m2} >=60 [facility] Globulin Calc (S) [Mass/Vol] on 06-20-2024 Globulin (S) [Mass/Vol] 3.0 g/dL [facility] Glucose mean value [Mass/vol ume] in Blood Estimated from glycated hemoglobinon 06-20-2024 Average glucose Estimated from glycated hemoglobin (Bld) [Mass/Vol] 120 mg/dL [facility] Hematocrit Auto (Bld) [Volum e fraction]on 06-20-2024 Hematocrit (Bld) [Volume fraction] 41.6 % Low 42.0-54.0 [facility] Hemoglobin [Mass/volume] in Bloodon 06-20-2024 Hemoglobin (Bld) [Mass/Vol] 14.0 g/dL 14.0-18.0 [facility] Laboratory - Chemistry and C hemistry - challengeon 06-20-2024 Albumin [Mass/Vol] 3.7 g/dL 3.4-5.0 [facility] ALP [Catalytic activity/Vol] 92 U/L 46-116 [facility] ALT [Catalytic activity/Vol] 30 U/L 16-63 [facility] AST [Catalytic activity/Vol] 15 U/L 15-37 [facility] Bilirubin [Mass/Vol] 0.4 mg/dL 0.2-1.0 [facility] Calcium [Mass/Vol] 8.9 mg/dL 8.5-10.1 [facility] Chloride [Moles/Vol] 105 mmol/L 98-107 [facility] Cholesterol [Mass/Vol] 229 mg/dL High <=200 [facility] Cholesterol in HDL [Mass/Vol] 57 mg/dL 40-60 [facility] Comment on above: > or =60 mg/dl - LOW CARDIOVASCULAR RISK<40 mg/dl - HIGH CARDIOVASCULAR RISK CO2 [Moles/Vol] 28.2 mmol/L 21.0-32.0 [facility] Creatinine [Mass/Vol] 0.82 mg/dL 0.70-1.30 [facility] GFR/1.73 sq M.predicted MDRD (S/P/Bld) [Vol rate/Area] mL/min/{1.73_m2} >=60 [facility] Glucose [Mass/Vol] 125 mg/dL High 74-106 [facility] Potassium [Moles/Vol] 4.0 mmol/L 3.5-5.1 [facility] Protein [Mass/Vol] 6.7 g/dL 6.4-8.2 [facility] Sodium [Moles/Vol] 142 mmol/L 136-145 [facility] Triglyceride [Mass/Vol] 65 mg/dL <=150 [facility] Urea nitrogen [Mass/Vol] 22.0 mg/dL High 7.0-18.0 [facility] Urea nitrogen/Creatinine [Mass ratio] 26.8 mg/mg [facility] Laboratory - Hematology and Cell countson 06-20-2024 HbA1c (Bld) [Mass fraction] 5.8 % 4.5-6.2 [facility] Comment on above: ADA RECOMMENDED LIMI T 4.0 - 6.0ADA THERAPEUTIC TARGET < 7.0ACTION SUGGESTED> 7.0 Immature granulocytes/100 WBC (Bld) 0.3 % 0.0-0.5 [facility] Leukocytes [#/volume] correc gareth for nucleated erythrocytes in Blood by Automated counon 06-20-2024 WBC corrected for nucl RBC Auto (Bld) [#/Vol] 7.3 10 3/uL 4.0-11.0 [facility] Lymphocytes Auto (Bld) [#/Vo l]on 06-20-2024 Lymphocytes (Bld) [#/Vol] 1.0 10 3/uL Low 1.2-3.8 [facility] Lymphocytes/100 WBC Auto (Bl d)on 06-20-2024 Lymphocytes/100 WBC (Bld) 13.3 % Low 20.5-60.0 [facility] MCH Auto (RBC) [Entitic mass ]on 06-20-2024 MCH (RBC) [Entitic mass] 30.3 pg 25.9-34.0 [facility] MCHC Auto (RBC) [Mass/Vol]on 06-20-2024 MCHC (RBC) [Mass/Vol] 33.7 g/dL 29.9-35.2 [facility] MCV Auto (RBC) [Entitic vol] on 06-20-2024 MCV (RBC) [Entitic vol] 90.0 fL 80.0-94.0 [facility] Microalbumin [Mass/volume] i n Urineon 06-20-2024 Albumin DL <= 20 mg/L (U) [Mass/Vol] 1.6 mg/dL <=30.0 [facility] Monocytes Auto (Bld) [#/Vol] on 06-20-2024 Monocytes (Bld) [#/Vol] 0.5 10 3/uL 0.3-0.8 [facility] Monocytes/100 WBC Auto (Bld) on 06-20-2024 Monocytes/100 WBC (Bld) 7.0 % 1.7-12.0 [facility] Neutrophils Auto (Bld) [#/Vo l]on 06-20-2024 Neutrophils (Bld) [#/Vol] 5.4 10 3/uL 1.4-6.5 [facility] Neutrophils/100 WBC Auto (Bl d)on 06-20-2024 Neutrophils/100 WBC (Bld) 73.6 % 43.0-75.0 [facility] No Panel Informationon 06-20 Eosinophils # (Auto) 0.4 10 3/uL 0.0-0.7 [facility] Immature Granulocyte # (Auto) 0.02 10 3/uL 0.00-0.03 [facility] Prostate Specific Antigen Screen 1.41 ng/mL <=4.00 [facility] Platelet mean volume Auto (B ld) [Entitic vol]on 06-20-2024 Platelet mean volume (Bld) [Entitic vol] 9.9 fL 9.5-13.5 [facility] Platelets Auto (Bld) [#/Vol] on 06-20-2024 Platelets (Bld) [#/Vol] 253 10 3/uL 150-450 [facility] RBC Auto (Bld) [#/Vol]on RBC (Bld) [#/Vol] 4.62 10 6/uL Low 4.70-6.10 [facility] Serum or plasma albumin/glob ulin mass ratioon 06-20-2024 Albumin/Globulin [Mass ratio] 1.2 {ratio} [facility] Serum or plasma anion gap de terminationon 06-20-2024 Anion gap [Moles/Vol] 12.8 mmol/L [facility] Serum or plasma total choles terol/high density lipoprotein (HDL) cholesterol mass osman 06-20-2024 Cholesterol.total/Ch olesterol in HDL [Mass ratio] 4.0 {ratio} [facility] Comment on above: 3.3 - 4.4 LOW RISK4. 4 - 7.1 AVERAGE RISK7.1 - 11.0 MODERATE RISK>11.0 HIGH RISK CNOVSPon 05-08-2024 CNOVSP Normal [facility] CNPNon 05-08-2024 CNPN Normal [facility] Albumin [Mass/volume] in Ser um or Plasmaon 04-17-2024 Albumin [Mass/Vol] 4.24 g/dL 3.43-5.41 [facility] B2 Microglob SerPl-mCncon Vibc-2-Ybhvvddknilui [Mass/Vol] 1.7 ug/mL Normal <3.1 [facility] Comment on above: Order Comment: Speci men Type: BLOOD SPECIMENOrdering Facility: [facility] Address: [address] [place] [address] Result Comment: Beta -2 Microglobulin test is performed using the [employer] immunoturbidimetric method. Results obtained with different methods or kits cannot be used interchangeably. Performed By: #### 1 952-1, 2885-2 ####[facility] LABCLIA [id number] [place] [address] [place] Basophils Auto (Bld) [#/Vol] on 04-17-2024 Basophils (Bld) [#/Vol] 0.03 10*3/uL <0.11 [facility] Basophils/100 WBC Auto (Bld) on 04-17-2024 Basophils/100 WBC (Bld) 0.3 % [facility] Blood manual differential co mment interpretation narrativeon 04-17-2024 Manual differential comment Chapin (Bld) [Interp] Auto [facility] CBC W Auto Differential pane l (Bld)on 04-17-2024 Basophils (Bld) [#/Vol] 0.03 10*3/uL Normal <0.11 [facility] Comment on above: Order Comment: Speci men Type: BLOOD SPECIMENOrdering Facility: [facility] Address: [address] [place] [address] Performed By: #### 5 7021-8 ####[facility] LABCLIA [id number] [place] [address] Basophils/100 WBC (Bld) 0.3 % Normal [facility] Comment on above: Order Comment: Speci men Type: BLOOD SPECIMENOrdering Facility: [facility] Address: [address] [place] [address] Performed By: #### 5 7021-8 ####[facility] LABCLIA [id number] [place] [address] Differential cell count method Nom (Bld) Auto Normal [facility] Comment on above: Order Comment: Speci men Type: BLOOD SPECIMENOrdering Facility: [facility] Address: [address] [place] [address] Performed By: #### 5 7021-8 ####[facility] LABCLIA [id number] [place] [address] Eosinophils (Bld) [#/Vol] 0.34 10*3/uL Normal <0.46 [facility] Comment on above: Order Comment: Speci men Type: BLOOD SPECIMENOrdering Facility: [facility] Address: [address] [place] [address] Performed By: #### 5 7021-8 ####[facility] LABCLIA [id number] [place] [address] Eosinophils/100 WBC (Bld) 3.8 % Normal [facility] Comment on above: Order Comment: Speci men Type: BLOOD SPECIMENOrdering Facility: [facility] Address: [address] [place] [address] Performed By: #### 5 7021-8 ####[facility] LABCLIA [id number] [place] [address] Erythrocyte distribution width (RBC) [Ratio] 13.2 % Normal 11.5-15.0 [facility] Comment on above: Order Comment: Speci men Type: BLOOD SPECIMENOrdering Facility: [facility] Address: [address] [place] [address] Performed By: #### 5 7021-8 ####[facility] LABIA [id number] [place] [address] Hematocrit (Bld) [Volume fraction] 42.1 % Normal 39.0-51.0 [facility] Comment on above: Order Comment: Speci men Type: BLOOD SPECIMENOrdering Facility: [facility] Address: [address] [place] [address] Performed By: #### 5 7021-8 ####[facility] LABCLIA [id number] [place] [address] Hemoglobin (Bld) [Mass/Vol] 14.3 g/dL Normal 13.0-17.0 [facility] Comment on above: Order Comment: Speci men Type: BLOOD SPECIMENOrdering Facility: [facility] Address: [address] [place] [address] Performed By: #### 5 7021-8 ####[facility] LABCLIA [id number] [place] [address] Immature granulocytes (Bld) [#/Vol] 0.04 10*3/uL Normal <0.10 [facility] Comment on above: Order Comment: Speci men Type: BLOOD SPECIMENOrdering Facility: [facility] Address: [address] [place] [address] Performed By: #### 5 7021-8 ####[facility] LABCLIA [id number] [place] [address] Immature granulocytes/100 WBC (Bld) 0.4 % Normal [facility] Comment on above: Order Comment: Speci men Type: BLOOD SPECIMENOrdering Facility: [facility] Address: [address] [place] [address] Performed By: #### 5 7021-8 ####[facility] LABCLIA [id number] [place] [address] Lymphocytes (Bld) [#/Vol] 0.83 10*3/uL Low 1.00-4.00 [facility] Comment on above: Order Comment: Speci men Type: BLOOD SPECIMENOrdering Facility: [facility] Address: [address] [place] [address] Performed By: #### 5 7021-8 ####[facility] LABCLIA [id number] [place] [address] Lymphocytes/100 WBC (Bld) 9.3 % Normal [facility] Comment on above: Order Comment: Speci men Type: BLOOD SPECIMENOrdering Facility: [facility] Address: [address] [place] [address] Performed By: #### 5 7021-8 ####[facility] LABCLIA [id number] [place] [address] MCH (RBC) [Entitic mass] 30.1 pg Normal 26.0-34.0 [facility] Comment on above: Order Comment: Speci men Type: BLOOD SPECIMENOrdering Facility: [facility] Address: [address] [place] [address] Performed By: #### 5 7021-8 ####[facility] LABIA [id number] [place] [address] MCHC (RBC) [Mass/Vol] 34.0 g/dL Normal 30.5-36.0 [facility] Comment on above: Order Comment: Speci men Type: BLOOD SPECIMENOrdering Facility: [facility] Address: [address] [place] [address] Performed By: #### 5 7021-8 ####[facility] LABIA [id number] [place] [address] MCV (RBC) [Entitic vol] 88.6 fL Normal 80.0-100.0 [facility] Comment on above: Order Comment: Speci men Type: BLOOD SPECIMENOrdering Facility: [facility] Address: [address] [place] [address] Performed By: #### 5 7021-8 ####[facility] LABIA [id number] [place] [address] Monocytes (Bld) [#/Vol] 0.58 10*3/uL Normal <0.87 [facility] Comment on above: Order Comment: Speci men Type: BLOOD SPECIMENOrdering Facility: [facility] Address: [address] [place] [address] Performed By: #### 5 7021-8 ####[facility] LABCLIA [id number] [place] [address] Monocytes/100 WBC (Bld) 6.5 % Normal [facility] Comment on above: Order Comment: Speci men Type: BLOOD SPECIMENOrdering Facility: [facility] Address: [address] [place] [address] Performed By: #### 5 7021-8 ####[facility] LABCLIA [id number] [place] [address] Neutrophils (Bld) [#/Vol] 7.09 10*3/uL Normal 1.45-7.50 [facility] Comment on above: Order Comment: Speci men Type: BLOOD SPECIMENOrdering Facility: [facility] Address: [address] [place] [address] Performed By: #### 5 7021-8 ####[facility] LABCLIA [id number] [place] [address] Neutrophils/100 WBC (Bld) 79.7 % Normal [facility] Comment on above: Order Comment: Speci men Type: BLOOD SPECIMENOrdering Facility: [facility] Address: [address] [place] [address] Performed By: #### 5 7021-8 ####[facility] LABCLIA [id number] [place] [address] Nucleated RBC (Bld) [#/Vol] 10*3/uL Normal <0.01 [facility] Comment on above: Order Comment: Speci men Type: BLOOD SPECIMENOrdering Facility: [facility] Address: [address] [place] [address] Performed By: #### 5 7021-8 ####[facility] LABIA [id number] [place] [address] Nucleated RBC/100 WBC (Bld) [Ratio] 0.0 /100 WBC Normal [facility] Comment on above: Order Comment: Speci men Type: BLOOD SPECIMENOrdering Facility: [facility] Address: [address] [place] [address] Performed By: #### 5 7021-8 ####[facility] LABCLIA [id number] [place] [address] Platelet mean volume (Bld) [Entitic vol] 9.9 fL Normal 9.0-12.7 [facility] Comment on above: Order Comment: Speci men Type: BLOOD SPECIMENOrdering Facility: [facility] Address: [address] [place] [address] Performed By: #### 5 7021-8 ####[facility] LABCLIA [id number] [place] [address] Platelets (Bld) [#/Vol] 217 10*3/uL Normal 150-400 [facility] Comment on above: Order Comment: Speci men Type: BLOOD SPECIMENOrdering Facility: [facility] Address: [address] [place] [address] Performed By: #### 5 7021-8 ####[facility] LABCLIA [id number] [place] [address] RBC (Bld) [#/Vol] 4.75 10*6/uL Normal 4.20-6.00 [facility] Comment on above: Order Comment: Speci men Type: BLOOD SPECIMENOrdering Facility: [facility] Address: [address] [place] [address] Performed By: #### 5 7021-8 ####[facility] LABCLIA [id number] [place] [address] WBC (Bld) [#/Vol] 8.91 10*3/uL Normal 3.70-11.00 [facility] Comment on above: Order Comment: Speci men Type: BLOOD SPECIMENOrdering Facility: [facility] Address: [address] [place] [address] Performed By: #### 5 7021-8 ####[facility] LABCLIA [id number] [place] [address] Calcium.ionized [Moles/Vol]o n 04-17-2024 Calcium.ionized (Bld) [Mass/Vol] 1.22 mmol/L Normal 1.08-1.30 [facility] Comment on above: Order Comment: Speci men Type: BLOOD SPECIMENOrdering Facility: [facility] Address: [address] [place] [address] Performed By: #### 1 995-0 ####[facility] LABCLIA [id number] [place] [address] [place] Calcium.ionized adjusted to pH 7.4 (Bld) [Moles/Vol] 1.20 mmol/L Normal 1.08-1.30 [facility] Comment on above: Order Comment: Speci men Type: BLOOD SPECIMENOrdering Facility: [facility] Address: [address] [place] [address] Performed By: #### 1 995-0 ####[facility] LABCLIA [id number] [place] [id number] [place] Comprehensive metabolic 2000 panelon 04-17-2024 Albumin [Mass/Vol] 4.4 g/dL Normal 3.9-4.9 [facility] Comment on above: Order Comment: Speci men Type: BLOOD SPECIMENOrdering Facility: [facility] Address: [address] [place] [address] Performed By: #### 3 084-1, 2777-1, 2532-0, 26908-3 ####[facility] LABCLIA [id number] [place] [address] ALP [Catalytic activity/Vol] 108 U/L Normal 38-113 [facility] Comment on above: Order Comment: Speci men Type: BLOOD SPECIMENOrdering Facility: [facility] Address: [address] [place] [address] Performed By: #### 3 084-1, 2777-1, 2532-0, 99921-4 ####[facility] LABCLIA [id number] [place] [address] ALT [Catalytic activity/Vol] 15 U/L Normal 10-54 [facility] Comment on above: Order Comment: Speci men Type: BLOOD SPECIMENOrdering Facility: [facility] Address: [address] [place] [address] Performed By: #### 3 084-1, 2777-1, 2532-0, 19841-1 ####[facility] LABCLIA [id number] [place] [address] Anion gap [Moles/Vol] 9 mmol/L Normal 8-15 [facility] Comment on above: Order Comment: Speci men Type: BLOOD SPECIMENOrdering Facility: [facility] Address: [address] [place] [address] Performed By: #### 3 084-1, 2777-1, 2-0, 81908-1 ####[facility] LABCLIA [id number] [place] [address] AST [Catalytic activity/Vol] 11 U/L Low 14-40 [facility] Comment on above: Order Comment: Speci men Type: BLOOD SPECIMENOrdering Facility: [facility] Address: [address] [place] [address] Performed By: #### 3 084-1, 2777-1, 253-0, 83043-4 ####[facility] LABCLIA [id number] [place] [address] Bilirubin [Mass/Vol] 0.2 mg/dL Normal 0.2-1.3 [facility] Comment on above: Order Comment: Speci men Type: BLOOD SPECIMENOrdering Facility: [facility] Address: [address] [place] [address] Performed By: #### 3 084-1, 2777-1, 2532-0, 76012-2 ####[facility] LABCLIA [id number] [place] [address] Calcium [Mass/Vol] 9.7 mg/dL Normal 8.5-10.2 [facility] Comment on above: Order Comment: Speci men Type: BLOOD SPECIMENOrdering Facility: [facility] Address: [address] [place] [address] Performed By: #### 3 084-1, 2777-1, 2532-0, 14975-0 ####[facility] LABCLIA [id number] [place] [address] Chloride [Moles/Vol] 103 mmol/L Normal 98-107 [facility] Comment on above: Order Comment: Speci men Type: BLOOD SPECIMENOrdering Facility: [facility] Address: [address] [place] [address] Performed By: #### 3 084-1, 2777-1, 2532-0, 49622-3 ####[facility] LABIA [id number] [place] [address] CO2 [Moles/Vol] 26 mmol/L Normal 22-30 [facility] Comment on above: Order Comment: Speci men Type: BLOOD SPECIMENOrdering Facility: [facility] Address: [address] [place] [address] Performed By: #### 3 084-1, 2777-1, 2532-0, 39537-7 ####[facility] LABIA [id number] [place] [address] Creatinine [Mass/Vol] 1.02 mg/dL Normal 0.73-1.22 [facility] Comment on above: Order Comment: Speci men Type: BLOOD SPECIMENOrdering Facility: [facility] Address: [address] [place] [address] Performed By: #### 3 084-1, 2777-1, 2532-0, 57494-8 ####[facility] LABCLIA [id number] [place] [address] Creatinine and Glomerular filtration rate.predicted panel (S/P/Bld) 84 mL/min/1.73m??? Normal >=60 [facility] Comment on above: Order Comment: Johana baldwin Type: BLOOD SPECIMENOrdering Facility: [facility] Address: [address] [place] [address] Result Comment: Eladia mated Glomerular Filtration Rate (eGFR) is calculated using the 2020 CKD-EPI creatinine equation. This equation utilizes serum creatinine, sex, and age as parameters. The creatinine assay has traceable calibration to isotope dilution-mass spectrometry. Refer to KDIGO guidelines for clinical interpretation. In patients with unstable renal function, e.g. those with acute kidney injury, the eGFR may not accurately reflect actual GFR. Performed By: #### 3 084-1, 2777-1, 253-0, 39342-5 ####[facility] LABCLIA [id number] [place] [address] Glucose [Mass/Vol] 126 mg/dL High 74-99 [facility] Comment on above: Order Comment: Johana baldwin Type: BLOOD SPECIMENOrdering Facility: [facility] Address: [address] [place] [address] Result Comment: The [place] Diabetes Association (ADA) provides guidance for cutoff values for fasting glucose and random glucose. The ADA defines fasting as no caloric intake for at least 8 hours. Fasting plasma glucose results between 100 to 125 mg/dL indicate increased risk for diabetes (prediabetes).Fasting plasma glucose results greater than or equal to 126 mg/dL meet the criteria for diagnosis of diabetes. In the absence of unequivocal hyperglycemia, results should be confirmed by repeat testing. In a patient with classic symptoms of hyperglycemia or hyperglycemic crisis, random plasma glucose results greater than or equal to 200 mg/dL meet the criteria for diagnosis of diabetes.Reference: Standards of Medical Care in Diabetes 2016, [place] [employer] Association. Diabetes Care. 2016.39(Suppl 1). Performed By: #### 3 084-1, 2777-1, 2532-0, 07260-4 ####[facility] LABCLIA [id number] [place] [address] Potassium [Moles/Vol] 4.1 mmol/L Normal 3.7-5.1 [facility] Comment on above: Order Comment: Speci men Type: BLOOD SPECIMENOrdering Facility: [facility] Address: [address] [place] [address] Performed By: #### 3 084-1, 2777-1, 2531-0, ####[facility] LABCLIA [id number] [place] [address] Protein [Mass/Vol] 7.1 g/dL Normal 6.3-8.0 [facility] Comment on above: Order Comment: Speci men Type: BLOOD SPECIMENOrdering Facility: [facility] Address: [address] [place] [address] Performed By: #### 3 084-1, 2777-1, 0, ####[facility] LABCLIA [id number] [place] [address] Sodium [Moles/Vol] 138 mmol/L Normal 136-144 [facility] Comment on above: Order Comment: Speci men Type: BLOOD SPECIMENOrdering Facility: [facility] Address: [address] [place] [address] Performed By: #### 3 084-1, 2777-1, 0, ####[facility] LABCLIA [id number] [place] [address] Urea nitrogen [Mass/Vol] 27 mg/dL High 9-24 [facility] Comment on above: Order Comment: Speci men Type: BLOOD SPECIMENOrdering Facility: [facility] Address: [address] [place] [address] Performed By: #### 3 084-1, 277-1, 0, ####[facility] LABCLIA [id number] [place] [address] Eosinophils/100 WBC Auto (Bl d)on 04-17-2024 Eosinophils/100 WBC (Bld) 3.8 % [facility] Erythrocyte distribution wid th Auto (RBC) [Ratio]on 04-17-2024 Erythrocyte distribution width (RBC) [Ratio] 13.2 % 11.5-15.0 [facility] Hematocrit Auto (Bld) [Volum e fraction]on 04-17-2024 Hematocrit (Bld) [Volume fraction] 42.1 % 39.0-51.0 [facility] Hemoglobin [Mass/volume] in Bloodon 04-17-2024 Hemoglobin (Bld) [Mass/Vol] 14.3 g/dL 13.0-17.0 [facility] IMMUNOFIXATION SCREEN, SERUM on 04-17-2024 INTERPRETATION (MPA) Atypical restricted bands are present in the IgM and kappa regions. Consistent with IgM kappa monoclonal gammopathy. Normal [facility] Comment on above: Order Comment: Specadela baldwin Type: BLOOD SPECIMENOrdering Facility: [facility] Address: [address] [place] [address] Performed By: #### I FESC ####[facility] LABCLIA [id number] [place] [address] [place] MPA RESULT M protein is present. Abnormal No M protein is identified. [facility] Comment on above: Order Comment: Johana baldwin Type: BLOOD SPECIMENOrdering Facility: [facility] Address: [address] [place] [address] Performed By: #### I FESC ####[facility] LABCLIA [id number] [place] [address] [place] STAFF REVIEW (MPA) Reviewed by Dr. Jimmie De León MD Normal [facility] Comment on above: Order Comment: Johana baldwin Type: BLOOD SPECIMENOrdering Facility: [facility] Address: [address] [place] [address] Performed By: #### I FESC ####[facility] LABCLIA [id number] [place] [address] [place] IMMUNOGLOBULINS,IGG,IGA,IGMo n 04-17-2024 IgA [Mass/Vol] 88 mg/dL Normal 70-400 [facility] Comment on above: Order Comment: Speci men Type: BLOOD SPECIMENOrdering Facility: [facility] Address: [address] [place] [address] Performed By: #### S ERIMM ####[facility] LABCLIA [id number] [place] [address] [place] IgG [Mass/Vol] 650 mg/dL Low 700-1600 [facility] Comment on above: Order Comment: Speci men Type: BLOOD SPECIMENOrdering Facility: [facility] Address: [address] [place] [address] Performed By: #### S ERIMM ####[facility] LABCLIA [id number] [place] [address] [place] IgM [Mass/Vol] 92 mg/dL Normal 40-230 [facility] Comment on above: Order Comment: Speci men Type: BLOOD SPECIMENOrdering Facility: [facility] Address: [address] [place] [address] Performed By: #### S ERIMM ####[facility] LABCLIA [id number] [place] [address] [place] IgA [Mass/volume] in Serum o r Plasmaon 04-17-2024 IgA [Mass/Vol] 88 mg/dL 70-400 [facility] IgG [Mass/volume] in Serum o r Plasmaon 04-17-2024 IgG [Mass/Vol] 650 mg/dL Low 700-1600 [facility] IgM [Mass/volume] in Serum o r Plasmaon 04-17-2024 IgM [Mass/Vol] 92 mg/dL 40-230 [facility] Immunoglobulin light chains. kappa.free [Mass/volume] in Serumon 04-17-2024 Immunoglobulin light chains.kappa.free (S) [Mass/Vol] 18.5 mg/L 3.3-19.4 [facility] Comment on above: Rarely, increased se rum free light chains levels may not be detected or accurately quantified due to prozone phenomenon or in high viscosity samples using this immunoturbidimetric assay. Correlation with other laboratory results and clinical findings is recommended. The [place] Free Light Chain was performed using the Binding Site Optilite immunoturbidimetric method. Result obtained with different assay methods or kits cannot be used interchangeably. Immunoglobulin light chains. kappa.free/Immunoglobulin light chains.lambda.free [Penny 04-17-2024 Immunoglobulin light chains.kappa.free/Im munoglobulin light chains.lambda.free (S) [Mass ratio] 1.53 0.26-1.65 [facility] Immunoglobulin light chains. lambda.free [Mass/volume] in Serum or Plasmaon 04-17-2024 Immunoglobulin light chains.lambda.free [Mass/Vol] 12.1 mg/L 5.7-26.3 [facility] Comment on above: Rarely, increased se rum free light chains levels may not be detected or accurately quantified due to prozone phenomenon or in high viscosity samples using this immunoturbidimetric assay. Correlation with other laboratory results and clinical findings is recommended. The [place] Free Light Chain was performed using the Binding Site Optilite immunoturbidimetric method. Result obtained with different assay methods or kits cannot be used interchangeably. KAPPA/KING,FREE,SERon 2023 Immunoglobulin light chains.kappa.free (S) [Mass/Vol] 18.5 mg/L Normal 3.3-19.4 [facility] Comment on above: Order Comment: Speci men Type: BLOOD SPECIMENOrdering Facility: [facility] Address: [address] [place] [address] Result Comment: Rare ly, increased serum free light chains levels may not be detected or accurately quantified due to prozone phenomenon or in high viscosity samples using this immunoturbidimetric assay. Correlation with other laboratory results and clinical findings is recommended.The [place] Free Light Chain was performed using the Binding Site Optilite immunoturbidimetric method. Result obtained with different assay methods or kits cannot be used interchangeably. Performed By: #### K LFRS ####[facility] LABCLIA [id number] [place] [address] [place] Immunoglobulin light chains.kappa/Immunog lobulin light chains.lambda (S) [Mass ratio] 1.53 Normal 0.26-1.65 [facility] Comment on above: Order Comment: Speci men Type: BLOOD SPECIMENOrdering Facility: [facility] Address: [address] [place] [address] Performed By: #### K LFRS ####[facility] LABCLIA [id number] [place] [address] [place] Immunoglobulin light chains.lambda.free [Mass/Vol] 12.1 mg/L Normal 5.7-26.3 [facility] Comment on above: Order Comment: Speci men Type: BLOOD SPECIMENOrdering Facility: [facility] Address: [address] [place] [address] Result Comment: Rare ly, increased serum free light chains levels may not be detected or accurately quantified due to prozone phenomenon or in high viscosity samples using this immunoturbidimetric assay. Correlation with other laboratory results and clinical findings is recommended.The Lambda Free Light Chain was performed using the Binding Site Optilite immunoturbidimetric method. Result obtained with different assay methods or kits cannot be used interchangeably. Performed By: #### K LFRS ####[facility] LABCLIA [id number] [place] [address] [place] LDH SerPl-cCncon 04-17-2024 LDH [Catalytic activity/Vol] 150 U/L Normal 135-225 [facility] Comment on above: Order Comment: Speci men Type: BLOOD SPECIMENOrdering Facility: [facility] Address: [address] [place] [address] Performed By: #### 3 084-1, 2777-1, 2532-0, 53075-4 ####[facility] LABCLIA [id number] [place] [address] Laboratory - Chemistry and C hemistry - challengeon 04-17-2024 Albumin [Mass/Vol] 4.4 g/dL 3.9-4.9 [facility] ALP [Catalytic activity/Vol] 108 U/L 38-113 [facility] ALT [Catalytic activity/Vol] 15 U/L 10-54 [facility] AST [Catalytic activity/Vol] 11 U/L Low 14-40 [facility] Bilirubin [Mass/Vol] 0.2 mg/dL 0.2-1.3 [facility] Calcium [Mass/Vol] 9.7 mg/dL 8.5-10.2 [facility] Chloride [Moles/Vol] 103 mmol/L 98-107 [facility] CO2 [Moles/Vol] 26 mmol/L 22-30 [facility] Creatinine [Mass/Vol] 1.02 mg/dL 0.73-1.22 [facility] Glucose [Mass/Vol] 126 mg/dL High 74-99 [facility] Comment on above: The [place] Diabete s Association (ADA) provides guidance for cutoff values for fasting glucose and random glucose. The ADA defines fasting as no caloric intake for at least 8 hours. Fasting plasma glucose results between 100 to 125 mg/dL indicate increased risk for diabetes (prediabetes).Fasting plasma glucose results greater than or equal to 126 mg/dL meet the criteria for diagnosis of diabetes. In the absence of unequivocal hyperglycemia, results should be confirmed by repeat testing. In a patient with classic symptoms of hyperglycemia or hyperglycemic crisis, random plasma glucose results greater than or equal to 200 mg/dL meet the criteria for diagnosis of diabetes.Reference: Standards of Medical Care in Diabetes 2016, [place] [employer]. Diabetes Care. 2016.39(Suppl 1). LDH [Catalytic activity/Vol] 150 U/L 135-225 [facility] Potassium [Moles/Vol] 4.1 mmol/L 3.7-5.1 [facility] Protein [Mass/Vol] 0.00 g/dL <=0.00 [facility] Sodium [Moles/Vol] 138 mmol/L 136-144 [facility] Urate [Mass/Vol] 6.5 mg/dL 4.0-8.1 [facility] [facility] Urea nitrogen [Mass/Vol] 27 mg/dL High 9-24 [facility] Laboratory - Hematology and Cell countson 04-17-2024 Eosinophils (Bld) [#/Vol] 0.34 10*3/uL <0.46 [facility] Immature granulocytes (Bld) [#/Vol] 0.04 10*3/uL <0.10 [facility] Immature granulocytes/100 WBC (Bld) 0.4 % [facility] Leukocytes [#/volume] correc gareth for nucleated erythrocytes in Blood by Automated counon 04-17-2024 WBC corrected for nucl RBC Auto (Bld) [#/Vol] 8.91 k/uL 3.70-11.00 [facility] Lymphocytes Auto (Bld) [#/Vo l]on 04-17-2024 Lymphocytes (Bld) [#/Vol] 0.83 10*3/uL Low 1.00-4.00 [facility] Lymphocytes/100 WBC Auto (Bl d)on 04-17-2024 Lymphocytes/100 WBC (Bld) 9.3 % [facility] MCH Auto (RBC) [Entitic mass ]on 04-17-2024 MCH (RBC) [Entitic mass] 30.1 pg 26.0-34.0 [facility] MCHC Auto (RBC) [Mass/Vol]on 04-17-2024 MCHC (RBC) [Mass/Vol] 34.0 g/dL 30.5-36.0 [facility] MCV Auto (RBC) [Entitic vol] on 04-17-2024 MCV (RBC) [Entitic vol] 88.6 fL 80.0-100.0 [facility] Monocytes Auto (Bld) [#/Vol] on 04-17-2024 Monocytes (Bld) [#/Vol] 0.58 10*3/uL <0.87 [facility] Monocytes/100 WBC Auto (Bld) on 04-17-2024 Monocytes/100 WBC (Bld) 6.5 % [facility] Neutrophils Auto (Bld) [#/Vo l]on 04-17-2024 Neutrophils (Bld) [#/Vol] 7.09 10*3/uL 1.45-7.50 [facility] Neutrophils/100 WBC Auto (Bl d)on 04-17-2024 Neutrophils/100 WBC (Bld) 79.7 % [facility] No Panel Informationon 04-17 Estimated GFR (CKD-EPI) 84 mL/min/1.73m??? >=60 [facility] Comment on above: Estimated Glomerular Filtration Rate (eGFR) is calculated using the 2020 CKD-EPI creatinine equation. This equation utilizes serum creatinine, sex, and age as parameters. The creatinine assay has traceable calibration to isotope dilution-mass spectrometry. Refer to KDIGO guidelines for clinical interpretation. In patients with unstable renal function, e.g. those with acute kidney injury, the eGFR may not accurately reflect actual GFR. Immunofixation Interpretation [facility] Ionized Calcium (pH Adjusted) 1.20 mmol/L 1.08-1.30 [facility] Leuk/Lymph Sign Pathologist (Misc) Reviewed by Dr. Anjelica De León MD [facility] Miscellaneous Test 6 See comment Fir [facility] Comment on above: Not Applicable. Miscellaneous Test Comment Reviewed by Dr. Anjelica De León MD [facility] Phosphorus Level 3.6 mg/dL 2.7-4.8 [facility] Protein Electrophoresis Interpret [facility] Protein Electrophoresis Note Abnormal No definitive M protein is identified on protein electrophor esis. [facility] Serum Immunofixation M protein is present. Abnormal No M protein is identified. [facility] Nucleated RBC Auto (Bld) [#/ Vol]on 04-17-2024 Nucleated RBC (Bld) [#/Vol] 10*3/uL <0.01 [facility] Nucleated erythrocytes [Pres ence] in Blood by Automated counton 04-17-2024 Nucleated RBC Auto Ql (Bld) 0.0 /100{WBC} [facility] PROTEIN ELECTROPHORESIS SERU M (P)on 04-17-2024 Albumin [Mass/Vol] 4.24 g/dL Normal 3.43-5.41 [facility] Comment on above: Order Comment: Speci men Type: BLOOD SPECIMENOrdering Facility: [facility] Address: [address] [place] [address] Performed By: #### L [id number] ####[facility] LABCLIA [id number] [facility] [place] [address] [place] Alpha 1 globulin Elph [Mass/Vol] 0.35 g/dL Normal 0.18-0.43 [facility] Comment on above: Order Comment: Speci men Type: BLOOD SPECIMENOrdering Facility: [facility] Address: [address] [place] [address] Performed By: #### L [id number] ####[facility] LABCLIA [id number] [place] [address] [place] Alpha 2 globulin Elph [Mass/Vol] 0.69 g/dL Normal 0.42-0.98 [facility] Comment on above: Order Comment: Speci men Type: BLOOD SPECIMENOrdering Facility: [facility] Address: [address] [place] [address] Performed By: #### L [id number] ####[facility] LABCLIA [id number] [place] [address] [place] Beta globulin Elph [Mass/Vol] 0.76 g/dL Normal 0.61-1.17 [facility] Comment on above: Order Comment: Speci men Type: BLOOD SPECIMENOrdering Facility: [facility] Address: [address] [place] [address] Performed By: #### L [id number] ####[facility] LABCLIA [id number] [place] [address] [place] Gamma globulin Elph [Mass/Vol] 0.56 g/dL Normal 0.53-1.51 [facility] Comment on above: Order Comment: Speci men Type: BLOOD SPECIMENOrdering Facility: [facility] Address: [address] [place] [address] Performed By: #### L [id number] ####[facility] LABCLIA [id number] [place] [address] [place] INTERPRETATION COMMENT FOR PROTEIN ELECTROPHORESIS Normal [facility] Comment on above: Order Comment: Speci men Type: BLOOD SPECIMENOrdering Facility: [facility] Address: [address] [place] [address] Performed By: #### L [id number] ####[facility] LABCLIA [id number] [place] [address] [place] M-PROTEIN LOCATION Normal [facility] Comment on above: Order Comment: Speci men Type: BLOOD SPECIMENOrdering Facility: [facility] Address: [address] [place] [address] Result Comment: Not Applicable. Performed By: #### L [id number] ####[facility] LABCLIA [id number] [place] [address] [place] Protein Fractions [Interp] An atypical region of restricted mobility is identified on protein electrophoresis. Abnormal No definitive M protein is identified on protein electrophor esis. [facility] Comment on above: Order Comment: Speci men Type: BLOOD SPECIMENOrdering Facility: [facility] Address: [address] [place] [address] Performed By: #### L [id number] ####[facility] LABIA [id number] [place] [address] [place] Protein.monoclonal Elph [Mass/Vol] 0.00 g/dL Normal <=0.00 [facility] Comment on above: Order Comment: Speci men Type: BLOOD SPECIMENOrdering Facility: [facility] Address: [address] [place] [address] Performed By: #### L [id number] ####[facility] LABIA [id number] [place] [address] [place] SPE STAFF REVIEW Reviewed by Dr. Jimmie De León MD Normal [facility] Comment on above: Order Comment: Speci men Type: BLOOD SPECIMENOrdering Facility: [facility] Address: [address] [place] [address] Performed By: #### L [id number] ####[facility] LABCLIA [id number] [place] [address] [place] Phosphate SerPl-mCncon 04-17 Phosphate [Mass/Vol] 3.6 mg/dL Normal 2.7-4.8 [facility] Comment on above: Order Comment: Specadela baldwin Type: BLOOD SPECIMENOrdering Facility: [facility] Address: [facility] [place] [id number] Performed By: #### 3 084-1, 2777-1, 2532-0, 98815-4 ####[facility] LABCLIA [id number] [place] [address] Platelet mean volume Auto (B ld) [Entitic vol]on 04-17-2024 Platelet mean volume (Bld) [Entitic vol] 9.9 fL 9.0-12.7 [facility] Platelets Auto (Bld) [#/Vol] on 04-17-2024 Platelets (Bld) [#/Vol] 217 10*3/uL 150-400 [facility] Prot SerPl-mCncon 04-17-2024 Protein [Mass/Vol] 6.6 g/dL Normal 6.3-8.0 [facility] Comment on above: Order Comment: Specadela men Type: BLOOD SPECIMENOrdering Facility: [facility] Address: [facility] [place] [address] Performed By: #### 1 952-1, 2885-2 ####[facility] LABCLIA [id number] [facility] [id number] [id number] [place] Protein [Mass/volume] in Ser um or Plasmaon 04-17-2024 Protein [Mass/Vol] 6.6 g/dL 6.3-8.0 [facility] Quantitative serum viscosity measurementon 04-17-2024 Viscosity (S) [Visc] 1.10 cP <=1.50 [facility] Comment on above: INTERPRETIVE INFORMA TION: Viscosity, SerumIncreased viscosity is associated with disorders such as monoclonal gammopathy, macroglobulinemia, and multiple myeloma. Significantly elevated viscosity (>3.0 cP) is associated with clinical symptoms of hyperviscosity syndrome.This test was developed and its performance characteristics determined by [facility]. It has not been cleared or approved by the [place] Food and Drug Administration. This test was performed in a CLIA certified laboratory and is intended for clinical purposes.Performed By: [facility]mither[facility] [place] [id number] Director: Donald Banda MD, PhDCLIA Number: [id number] RBC Auto (Bld) [#/Vol]on RBC (Bld) [#/Vol] 4.75 10*6/uL 4.20-6.00 [facility] SERUM VISCOSITYon 04-17-2024 VISCOSITY, SERUM 1.10 cP Normal <=1.50 [facility] Comment on above: Order Comment: Speci men Type: BLOOD SPECIMENOrdering Facility: [facility] Address: [address] [place], [place] [address] [address] Result Comment: INTE RPRETIVE INFORMATION: Viscosity, SerumIncreased viscosity is associated with disorders such asmonoclonal gammopathy, macroglobulinemia, and multiple myeloma.Significantly elevated viscosity (>3.0 cP) is associated withclinical symptoms of hyperviscosity syndrome.This test was developed and its performance characteristicsdetermined by [facility]. It has not been cleared orapproved by the [place] Food and Drug Administration. This test wasperformed in a CLIA certified laboratory and is intended forclinical purposes.Performed By: [facility] [place] [id number] Director: Donald Banda MD, PhDCLIA Number: [id number] Performed By: #### S ERVIS ####[facility] [id number] [place] [address] Serum ionized calcium measur ement using ion specific electrode (mass/volume)on 04-17-2024 Calcium.ionized ISE [Mass/Vol] 1.22 mmol/L 1.08-1.30 [facility] Serum or plasma alpha 1 glob ulin measurement by electrophoresis (mass/volume)on 04-17-2024 Alpha 1 globulin Elph [Mass/Vol] 0.35 g/dL 0.18-0.43 [facility] Serum or plasma alpha 2 glob ulin measurement by electrophoresis (mass/volume)on 04-17-2024 Alpha 2 globulin Elph [Mass/Vol] 0.69 g/dL 0.42-0.98 [facility] Serum or plasma anion gap de terminationon 04-17-2024 Anion gap [Moles/Vol] 9 mmol/L 8-15 [facility] Serum or plasma beta globuli n measurement by electrophoresis (mass/volume)on 04-17-2024 Beta globulin Elph [Mass/Vol] 0.76 g/dL 0.61-1.17 [facility] Serum or plasma dtpk-5-kyuyd globulin measurement (mass/volume)on 04-17-2024 Gltz-8-Drmybcoijwjae [Mass/Vol] 1.7 ug/mL <3.1 [facility] Comment on above: Beta-2 Microglobulin test is performed using the [employer] immunoturbidimetric method. Results obtained with different methods or kits cannot be used interchangeably. Serum or plasma gamma globul in measurement by electrophoresis (mass/volume)on 04-17-2024 Gamma globulin Elph [Mass/Vol] 0.56 g/dL 0.53-1.51 [facility] Urate SerPl-mCncon Urate [Mass/Vol] 6.5 mg/dL Normal 4.0-8.1 [facility] Comment on above: Order Comment: Speci men Type: BLOOD SPECIMENOrdering Facility: [facility] Address: [address] [place], [place] [address] Performed By: #### 3 084-1, 2777-1, 2532-0, 70316-3 ####[facility] LABCLIA [id number] [place] [address] H PYLORI SCREENon 01-28-2024 H. pylori Org specific cx Ql (Julita fld) Negative Normal NEG [facility] Comment on above: Performed By: #### 4 4015-6 #### [facility] ([id number]) [address] [place] [address], [address] [place] [address] Surgical Pathologyon 024 Surgical Pathology Normal [facility] Comment on above: Result Comment: [facility] [address] [place] [address] Surgical Pathology Consultation Patient Name:KODI RIVAS:1965 (Age: 58)Gender:MTaken:4Reported:01/30/2024hysician(s):Lazara Palacios D.O. ([phone])Copy To: Rec. #:[id number]: #[id number] Final Pathologic Diagnosis 1. Gastric antrum biopsies: Normal gastric corpus mucosa. No inflammation, intestinal metaplasia, dysplasia or H. pylori organisms identified. 2. Distal esophageal biopsies: Low-grade active esophagitis, consistent with reflux disease. Unremarkable gastric cardiac and fundic mucosa. No eosinophilic esophagitis identified. No intestinal metaplasia or dysplasia identified. 3. Ascending colon polyp, biopsies: Tubular adenoma. 4. Distal transverse colon polyp, biopsies: Tubular adenoma. Report Electronically Signed Out [facility]/01/30/2024Nas Paul M.D. Interpretation performed at [facility], [address] [place] [address], License number: [id number]. Clinical History Gastroesophageal reflux, history of colon polyps. 3. Snared a polyp. 4. Snared a polyp. Gross Description 1. Received in formalin labeled SLEA, antrum BX are two light keene soft tissue bits, 0.3 cm each. The specimen is filtered and entirely submitted in a single cassette. (1, ns, [id number],m8) DM. 2. .Received in formalin labeled SLEMPA, distal esophagus BX are four light keene feathery soft tissue bits, 0.2-0.3 cm. The specimen is filtered and entirely submitted in a single cassette. (1, ns, [id number],m8) DM. 3. Received in formalin labeled SLEMPA, ascending colon polyp are three light keene soft tissue bits, 0.1-0.4 cm. The specimen is filtered and entirely submitted in a single cassette. (1, ns, [id number],m8) DM. 4. Received in formalin labeled SLEMPA, distal transverse colon polyp are four light keene soft tissue bits, 0.2-0.4 cm. The specimen is filtered and entirely submitted in a single cassette. (1, ns, [id number],m8) DM. dm/01/29/2024NSK Specimen(s) Received 1: Antrum biopsy 2: Distal esophageal biopsy 3: Ascending colon polyp 4: Distal transverse colon polyp Fee Codes(s): 1; 79155 2; 51582 3; 14575 4; 86970 CNPNon 01-22-2024 CNPN Normal [facility] CNOVSPon 01-17-2024 CNOVSP Normal [facility] CNPNon 01-11-2024 CNPN Normal [facility] B2 Microglob SerPl-mCncon Zwjs-1-Fejjnpsycmkoa [Mass/Vol] 1.6 ug/mL Normal 0.8-2.4 [facility] Comment on above: Order Comment: Speci men Type: BLOOD SPECIMENOrdering Facility: [facility] Address: [address] [place] [address] Result Comment: Beta -2 Microglobulin test is performed using the [employer] immunoturbidimetric method. Results obtained with different methods or kits cannot be used interchangeably. Performed By: #### 1 952-1, 2885-2 ####[facility] LABCLIA [id number] [place] [address] [place] CBC W Auto Differential pane l (Bld)on 01-10-2024 Basophils (Bld) [#/Vol] 0.04 10*3/uL Normal <0.11 [facility] Comment on above: Order Comment: Speci men Type: BLOOD SPECIMENOrdering Facility: [facility] Address: [address] [place] [address] Performed By: #### 5 7021-8 ####[facility] LABCLIA [id number] [place] [address] Basophils/100 WBC (Bld) 0.5 % Normal [facility] Comment on above: Order Comment: Speci men Type: BLOOD SPECIMENOrdering Facility: [facility] Address: [address] [place] [address] Performed By: #### 5 7021-8 ####[facility] LABCLIA [id number] [place] [address] Differential cell count method Nom (Bld) Auto Normal [facility] Comment on above: Order Comment: Speci men Type: BLOOD SPECIMENOrdering Facility: [facility] Address: [address] [place] [address] Performed By: #### 5 7021-8 ####[facility] LABCLIA [id number] [place] [address] Eosinophils (Bld) [#/Vol] 0.35 10*3/uL Normal <0.46 [facility] Comment on above: Order Comment: Speci men Type: BLOOD SPECIMENOrdering Facility: [facility] Address: [address] [place] [address] Performed By: #### 5 7021-8 ####[facility] LABCLIA [id number] [place] [address] Eosinophils/100 WBC (Bld) 4.2 % Normal [facility] Comment on above: Order Comment: Speci men Type: BLOOD SPECIMENOrdering Facility: [facility] Address: [address] [place] [address] Performed By: #### 5 7021-8 ####[facility] LABCLIA [id number] [place] [address] Erythrocyte distribution width (RBC) [Ratio] 13.1 % Normal 11.5-15.0 [facility] Comment on above: Order Comment: Speci men Type: BLOOD SPECIMENOrdering Facility: [facility] Address: [address] [place] [address] Performed By: #### 5 7021-8 ####[facility] LABCLIA [id number] [place] [address] Hematocrit (Bld) [Volume fraction] 41.9 % Normal 39.0-51.0 [facility] Comment on above: Order Comment: Speci men Type: BLOOD SPECIMENOrdering Facility: [facility] Address: [address] [place] [address] Performed By: #### 5 7021-8 ####[facility] LABCLIA [id number] [place] [address] Hemoglobin (Bld) [Mass/Vol] 14.5 g/dL Normal 13.0-17.0 [facility] Comment on above: Order Comment: Speci men Type: BLOOD SPECIMENOrdering Facility: [facility] Address: [address] [place] [address] Performed By: #### 5 7021-8 ####[facility] LABCLIA [id number] [place] [address] Immature granulocytes (Bld) [#/Vol] 10*3/uL Normal <0.10 [facility] Comment on above: Order Comment: Speci men Type: BLOOD SPECIMENOrdering Facility: [facility] Address: [address] [place] [address] Performed By: #### 5 7021-8 ####[facility] LABCLIA [id number] [place] [address] Immature granulocytes/100 WBC (Bld) 0.2 % Normal [facility] Comment on above: Order Comment: Speci men Type: BLOOD SPECIMENOrdering Facility: [facility] Address: [address] [place] [address] Performed By: #### 5 7021-8 ####[facility] LABCLIA [id number] [place] [address] Lymphocytes (Bld) [#/Vol] 1.20 10*3/uL Normal 1.00-4.00 [facility] Comment on above: Order Comment: Speci men Type: BLOOD SPECIMENOrdering Facility: [facility] Address: [address] [place] [address] Performed By: #### 5 7021-8 ####[facility] LABCLIA [id number] [place] [address] Lymphocytes/100 WBC (Bld) 14.3 % Normal [facility] Comment on above: Order Comment: Speci men Type: BLOOD SPECIMENOrdering Facility: [facility] Address: [address] [place] [address] Performed By: #### 5 7021-8 ####[facility] LABCLIA [id number] [place] [address] MCH (RBC) [Entitic mass] 30.1 pg Normal 26.0-34.0 [facility] Comment on above: Order Comment: Speci men Type: BLOOD SPECIMENOrdering Facility: [facility] Address: [address] [place] [address] Performed By: #### 5 7021-8 ####[facility] LABIA [id number] [place] [address] MCHC (RBC) [Mass/Vol] 34.6 g/dL Normal 30.5-36.0 [facility] Comment on above: Order Comment: Speci men Type: BLOOD SPECIMENOrdering Facility: [facility] Address: [address] [place] [address] Performed By: #### 5 7021-8 ####[facility] LABCLIA [id number] [place] [address] MCV (RBC) [Entitic vol] 86.9 fL Normal 80.0-100.0 [facility] Comment on above: Order Comment: Speci men Type: BLOOD SPECIMENOrdering Facility: [facility] Address: [address] [place] [address] Performed By: #### 5 7021-8 ####[facility] LABIA [id number] [place] [address] Monocytes (Bld) [#/Vol] 0.50 10*3/uL Normal <0.87 [facility] Comment on above: Order Comment: Speci men Type: BLOOD SPECIMENOrdering Facility: [facility] Address: [address] [place] [address] Performed By: #### 5 7021-8 ####[facility] LABCLIA [id number] [place] [address] Monocytes/100 WBC (Bld) 6.0 % Normal [facility] Comment on above: Order Comment: Speci men Type: BLOOD SPECIMENOrdering Facility: [facility] Address: [address] [place] [address] Performed By: #### 5 7021-8 ####[facility] LABCLIA [id number] [place] [address] Neutrophils (Bld) [#/Vol] 6.28 10*3/uL Normal 1.45-7.50 [facility] Comment on above: Order Comment: Speci men Type: BLOOD SPECIMENOrdering Facility: [facility] Address: [address] [place] [address] Performed By: #### 5 7021-8 ####[facility] LABCLIA [id number] [place] [address] Neutrophils/100 WBC (Bld) 74.8 % Normal [facility] Comment on above: Order Comment: Speci men Type: BLOOD SPECIMENOrdering Facility: [facility] Address: [address] [place] [address] Performed By: #### 5 7021-8 ####[facility] LABCLIA [id number] [place] [address] Nucleated RBC (Bld) [#/Vol] 10*3/uL Normal <0.01 [facility] Comment on above: Order Comment: Speci men Type: BLOOD SPECIMENOrdering Facility: [facility] Address: [address] [place] [address] Performed By: #### 5 7021-8 ####[facility] LABCLIA [id number] [place] [address] Nucleated RBC/100 WBC (Bld) [Ratio] 0.0 /100 WBC Normal [facility] Comment on above: Order Comment: Speci men Type: BLOOD SPECIMENOrdering Facility: [facility] Address: [address] [place] [address] Performed By: #### 5 7021-8 ####[facility] LABCLIA [id number] [place] [address] Platelet mean volume (Bld) [Entitic vol] 9.8 fL Normal 9.0-12.7 [facility] Comment on above: Order Comment: Speci men Type: BLOOD SPECIMENOrdering Facility: [facility] Address: [address] [place] [address] Performed By: #### 5 7021-8 ####[facility] LABCLIA [id number] [place] [address] Platelets (Bld) [#/Vol] 259 10*3/uL Normal 150-400 [facility] Comment on above: Order Comment: Speci men Type: BLOOD SPECIMENOrdering Facility: [facility] Address: [address] [place] [address] Performed By: #### 5 7021-8 ####[facility] LABCLIA [id number] [place] [address] RBC (Bld) [#/Vol] 4.82 10*6/uL Normal 4.20-6.00 [facility] Comment on above: Order Comment: Speci men Type: BLOOD SPECIMENOrdering Facility: [facility] Address: [address] [place] [address] Performed By: #### 5 7021-8 ####[facility] LABCLIA [id number] [place] [address] WBC (Bld) [#/Vol] 8.39 10*3/uL Normal 3.70-11.00 [facility] Comment on above: Order Comment: Speci men Type: BLOOD SPECIMENOrdering Facility: [facility] Address: [address] [place] [address] Performed By: #### 5 7021-8 ####[facility] LABCLIA [id number] [place] [address] Calcium.ionized [Moles/Vol]o n 01-10-2024 Calcium.ionized (Bld) [Mass/Vol] 1.27 mmol/L Normal 1.08-1.30 [facility] Comment on above: Order Comment: Speci men Type: BLOOD SPECIMENOrdering Facility: [facility] Address: [address] [place] [address] Performed By: #### 1 995-0 ####[facility] LABCLIA [id number] [address] [place] Calcium.ionized adjusted to pH 7.4 (Bld) [Moles/Vol] 1.26 mmol/L Normal 1.08-1.30 [facility] Comment on above: Order Comment: Speci men Type: BLOOD SPECIMENOrdering Facility: [facility] Address: [address] [place] [address] Performed By: #### 1 995-0 ####[facility] LABCLIA [id number] [place] [address] [place] Comprehensive metabolic 2000 panelon 01-10-2024 Albumin [Mass/Vol] 4.6 g/dL Normal 3.9-4.9 [facility] Comment on above: Order Comment: Speci men Type: BLOOD SPECIMENOrdering Facility: [facility] Address: [address] [place] [address] Performed By: #### 2 4323-8, 2532-0, 2777-1, 3084-1 ####[facility] LABCLIA [id number] [place] [address] ALP [Catalytic activity/Vol] 111 U/L Normal 38-113 [facility] Comment on above: Order Comment: Speci men Type: BLOOD SPECIMENOrdering Facility: [facility] Address: [address] [place] [address] Performed By: #### 2 4323-8, 2532-0, 2777-1, 3084-1 ####[facility] LABCLIA [id number] [place] [address] ALT [Catalytic activity/Vol] 13 U/L Normal 10-54 [facility] Comment on above: Order Comment: Speci men Type: BLOOD SPECIMENOrdering Facility: [facility] Address: [address] [place] [address] Performed By: #### 2 4323-8, 2532-0, 7-1, 4-1 ####[facility] LABCLIA [id number] [place] [address] Anion gap [Moles/Vol] 11 mmol/L Normal 9-18 [facility] Comment on above: Order Comment: Speci men Type: BLOOD SPECIMENOrdering Facility: [facility] Address: [address] [place] [address] Performed By: #### 2 4323-8, 2532-0, 2776-1, 3083- ####[facility] LABCLIA [id number] [place] [address] AST [Catalytic activity/Vol] 12 U/L Low 14-40 [facility] Comment on above: Order Comment: Speci men Type: BLOOD SPECIMENOrdering Facility: [facility] Address: [address] [place] [address] Performed By: #### 2 4323-8, 2532-0, 2776-1, 308- ####[facility] LABCLIA [id number] [place] [address] Bilirubin [Mass/Vol] 0.3 mg/dL Normal 0.2-1.3 [facility] Comment on above: Order Comment: Speci men Type: BLOOD SPECIMENOrdering Facility: [facility] Address: [address] [place] [address] Performed By: #### 2 4323-8, 2532-0, 7-1, 3084-1 ####[facility] LABCLIA [id number] [place] [address] Calcium [Mass/Vol] 10.2 mg/dL Normal 8.5-10.2 [facility] Comment on above: Order Comment: Speci men Type: BLOOD SPECIMENOrdering Facility: [facility] Address: [address] [place] [address] Performed By: #### 2 4323-8, 2532-0, 277-1, 3083-1 ####[facility] LABCLIA [id number] [place] [address] Chloride [Moles/Vol] 105 mmol/L Normal 97-105 [facility] Comment on above: Order Comment: Speci men Type: BLOOD SPECIMENOrdering Facility: [facility] Address: [address] [place] [address] Performed By: #### 2 4323-8, 2532-0, 277-1, 3083-1 ####[facility] LABCLIA [id number] [place] [address] CO2 [Moles/Vol] 26 mmol/L Normal 22-30 [facility] Comment on above: Order Comment: Speci men Type: BLOOD SPECIMENOrdering Facility: [facility] Address: [address] [place] [address] Performed By: #### 2 4323-8, 2532-0, 2776-1, 3083-1 ####[facility] LABCLIA [id number] [place] [address] Creatinine [Mass/Vol] 1.02 mg/dL Normal 0.73-1.22 [facility] Comment on above: Order Comment: Speci men Type: BLOOD SPECIMENOrdering Facility: [facility] Address: [address] [place] [address] Performed By: #### 2 4323-8, 2532-0, 2777-1, 3083-1 ####[facility] LABCLIA [id number] [place] [address] Creatinine and Glomerular filtration rate.predicted panel (S/P/Bld) 85 mL/min/1.73m??? Normal >=60 [facility] Comment on above: Order Comment: Johana baldwin Type: BLOOD SPECIMENOrdering Facility: [facility] Address: [address] [place] [address] Result Comment: Eladia mated Glomerular Filtration Rate (eGFR) is calculated using the 2020 CKD-EPI creatinine equation. This equation utilizes serum creatinine, sex, and age as parameters. The creatinine assay has traceable calibration to isotope dilution-mass spectrometry. Refer to KDIGO guidelines for clinical interpretation. In patients with unstable renal function, e.g. those with acute kidney injury, the eGFR may not accurately reflect actual GFR. Performed By: #### 2 4323-8, 2532-0, 2777-1, 3084-1 ####[facility] LABIA [id number] [place] [address] Glucose [Mass/Vol] 175 mg/dL High 74-99 [facility] Comment on above: Order Comment: Johana baldwin Type: BLOOD SPECIMENOrdering Facility: [facility] Address: [address] [place] [address] Result Comment: The [place] Diabetes Association (ADA) provides guidance for cutoff values for fasting glucose and random glucose. The ADA defines fasting as no caloric intake for at least 8 hours. Fasting plasma glucose results between 100 to 125 mg/dL indicate increased risk for diabetes (prediabetes).Fasting plasma glucose results greater than or equal to 126 mg/dL meet the criteria for diagnosis of diabetes. In the absence of unequivocal hyperglycemia, results should be confirmed by repeat testing. In a patient with classic symptoms of hyperglycemia or hyperglycemic crisis, random plasma glucose results greater than or equal to 200 mg/dL meet the criteria for diagnosis of diabetes.Reference: Standards of Medical Care in Diabetes 2016, [place] [employer] Association. Diabetes Care. 2016.39(Suppl 1). Performed By: #### 2 4323-8, 2532-0, 2777-1, 3084-1 ####[facility] LABIA [id number] [place] [address] Potassium [Moles/Vol] 4.3 mmol/L Normal 3.7-5.1 [facility] Comment on above: Order Comment: Speci men Type: BLOOD SPECIMENOrdering Facility: [facility] Address: [address] [place] [address] Performed By: #### 2 4323-8, 2532-0, 2777-1, 3084-1 ####[facility] LABCLIA [id number] [place] [address] Protein [Mass/Vol] 7.1 g/dL Normal 6.3-8.0 [facility] Comment on above: Order Comment: Speci men Type: BLOOD SPECIMENOrdering Facility: [facility] Address: [address] [place] [address] Performed By: #### 2 4323-8, 2532-0, 2777-1, 3084-1 ####[facility] LABCLIA [id number] [place] [address] Sodium [Moles/Vol] 142 mmol/L Normal 136-144 [facility] Comment on above: Order Comment: Speci men Type: BLOOD SPECIMENOrdering Facility: [facility] Address: [address] [place] [address] Performed By: #### 2 4323-8, 2532-0, 2777-1, 3084-1 ####[facility] LABCLIA [id number] [place] [address] Urea nitrogen [Mass/Vol] 27 mg/dL High 9-24 [facility] Comment on above: Order Comment: Speci men Type: BLOOD SPECIMENOrdering Facility: [facility] Address: [address] [place] [address] Performed By: #### 2 4323-8, 2532-0, 2777-1, 3084-1 ####[facility] LABCLIA [id number] [place] [address] IMMUNOFIXATION SCREEN, SERUM on 01-10-2024 INTERPRETATION (MPA) Atypical restricted bands are present in the IgM and kappa regions. Consistent with IgM kappa monoclonal gammopathy. Normal [facility] Comment on above: Order Comment: Speci men Type: BLOOD SPECIMENOrdering Facility: [facility] Address: [address] [place] [address] Performed By: #### I FESC ####[facility] LABCLIA [id number] [address] [place] MPA RESULT M protein is present. Abnormal No M protein is identified. [facility] Comment on above: Order Comment: Speci men Type: BLOOD SPECIMENOrdering Facility: [facility] Address: [address] [place] [address] Performed By: #### I FES ####[facility] LABCLIA [id number] [address] [place] STAFF REVIEW ([facility]) Reviewed by Dr. Jimmie De León MD Normal [facility] Comment on above: Order Comment: Speci men Type: BLOOD SPECIMENOrdering Facility: [facility] Address: [address] [place] [address] Performed By: #### I FESC ####[facility] LABCLIA [id number] [place] [address] [place] IMMUNOGLOBULINS GAMon 2023 IgA [Mass/Vol] 89 mg/dL Normal 70-400 [facility] Comment on above: Order Comment: Speci men Type: BLOOD SPECIMENOrdering Facility: [facility] Address: [address] [place] [address] Performed By: #### S ERIMM ####[facility] LABCLIA [id number] [place] [address] [place] IgG [Mass/Vol] 639 mg/dL Low 700-1600 [facility] Comment on above: Order Comment: Speci men Type: BLOOD SPECIMENOrdering Facility: [facility] Address: [address] [place] [address] Performed By: #### S ERIMM ####[facility] LABCLIA [id number] [place] [address] [place] IgM [Mass/Vol] 106 mg/dL Normal 40-230 [facility] Comment on above: Order Comment: Speci men Type: BLOOD SPECIMENOrdering Facility: [facility] Address: [address] [place] [address] Performed By: #### S ERIMM ####[facility] LABCLIA [id number] [place] [address] [place] KAPPA/KING,FREE,SERon 2023 Immunoglobulin light chains.kappa.free (S) [Mass/Vol] 20.1 mg/L High 3.3-19.4 [facility] Comment on above: Order Comment: Speci men Type: BLOOD SPECIMENOrdering Facility: [facility] Address: [address] [place] [address] Result Comment: Rare ly, increased serum free light chains levels may not be detected or accurately quantified due to prozone phenomenon or in high viscosity samples using this immunoturbidimetric assay. Correlation with other laboratory results and clinical findings is recommended.The [place] Free Light Chain was performed using the Binding Site Optilite immunoturbidimetric method. Result obtained with different assay methods or kits cannot be used interchangeably. Performed By: #### K LFRS ####[facility] LABCLIA [id number] [place] [address] [place] Immunoglobulin light chains.kappa/Immunog lobulin light chains.lambda (S) [Mass ratio] 1.84 High 0.26-1.65 [facility] Comment on above: Order Comment: Speci men Type: BLOOD SPECIMENOrdering Facility: [facility] Address: [address] [place] [address] Performed By: #### K LFRS ####[facility] LABCLIA [id number] [place] [address] [place] Immunoglobulin light chains.lambda.free [Mass/Vol] 10.9 mg/L Normal 5.7-26.3 [facility] Comment on above: Order Comment: Speci men Type: BLOOD SPECIMENOrdering Facility: [facility] Address: [address] [place] [address] Result Comment: Rare ly, increased serum free light chains levels may not be detected or accurately quantified due to prozone phenomenon or in high viscosity samples using this immunoturbidimetric assay. Correlation with other laboratory results and clinical findings is recommended.The [place] Free Light Chain was performed using the Binding Site Optilite immunoturbidimetric method. Result obtained with different assay methods or kits cannot be used interchangeably. Performed By: #### K LFRS ####[facility] LABCLIA [id number] [place] [address] [place] LDH SerPl-cCncon 01-10-2024 LDH [Catalytic activity/Vol] 137 U/L Normal 135-225 [facility] Comment on above: Order Comment: Speci men Type: BLOOD SPECIMENOrdering Facility: [facility] Address: [address] [place] [address] Performed By: #### 2 4323-8, 2532-0, 2777-1, 3084-1 ####[facility] LABCLIA [id number] [place] [id number] PROTEIN ELECTROPHORESIS SERU M (P)on 01-10-2024 Albumin [Mass/Vol] 4.39 g/dL Normal 3.43-5.41 [facility] Comment on above: Order Comment: Speci men Type: BLOOD SPECIMENOrdering Facility: [facility] Address: [address] [place] [address] Performed By: #### L [id number] ####[facility] LABCLIA [id number] [place] [id number] [place] Alpha 1 globulin Elph [Mass/Vol] 0.33 g/dL Normal 0.18-0.43 [facility] Comment on above: Order Comment: Speci men Type: BLOOD SPECIMENOrdering Facility: [facility] Address: [address] [place] [address] Performed By: #### L [id number] ####[facility] LABCLIA [id number] [place] [address] [place] Alpha 2 globulin Elph [Mass/Vol] 0.68 g/dL Normal 0.42-0.98 [facility] Comment on above: Order Comment: Speci men Type: BLOOD SPECIMENOrdering Facility: [facility] Address: [address] [place] [address] Performed By: #### L [id number] ####[facility] LABCLIA [id number] [place] [address] [place] Beta globulin Elph [Mass/Vol] 0.74 g/dL Normal 0.61-1.17 [facility] Comment on above: Order Comment: Speci men Type: BLOOD SPECIMENOrdering Facility: [facility] Address: [address] [place] [address] Performed By: #### L [id number] ####[facility] LABCLIA [id number] [place] [address] [place] Gamma globulin Elph [Mass/Vol] 0.56 g/dL Normal 0.53-1.51 [facility] Comment on above: Order Comment: Speci men Type: BLOOD SPECIMENOrdering Facility: [facility] Address: [address] [place] [address] Performed By: #### L [id number] ####[facility] LABCLIA [id number] [place] [address] [place] M-PROTEIN LOCATION Normal [facility] Comment on above: Order Comment: Speci men Type: BLOOD SPECIMENOrdering Facility: [facility] Address: [address] [place] [address] Result Comment: Not Applicable. Performed By: #### L [id number] ####[facility] LABCLIA [id number] [place] [address] [place] Protein Fractions [Interp] No definitive M protein is identified on protein electrophoresis. Normal No definitive M protein is identified on protein electrophor esis. [facility] Comment on above: Order Comment: Speci men Type: BLOOD SPECIMENOrdering Facility: [facility] Address: [address] [place] [address] Performed By: #### L [id number] ####[facility] LABCLIA [id number] [place] [address] [place] Protein.monoclonal Elph [Mass/Vol] 0.00 g/dL Normal <=0.00 [facility] Comment on above: Order Comment: Speci men Type: BLOOD SPECIMENOrdering Facility: [facility] Address: [address] [place] [address] Performed By: #### L [id number] ####[facility] LABCLIA [id number] [address] [place] SPE STAFF REVIEW Reviewed by Dr. Jimmie De León MD [facility] Comment on above: Order Comment: Speci men Type: BLOOD SPECIMENOrdering Facility: [facility] Address: [address] [place] [address] Performed By: #### L [id number] ####[facility] LABCLIA [id number] [place] [address] [place] Phosphate SerPl-mCncon 01-09 Phosphate [Mass/Vol] 3.1 mg/dL Normal 2.7-4.8 [facility] Comment on above: Order Comment: Speci men Type: BLOOD SPECIMENOrdering Facility: [facility] Address: [address] [place] [address] Performed By: #### 2 4323-8, 2532-0, 2777-1, 3084-1 ####[facility] LABCLIA [id number] [place] [address] Prot SerPl-mCncon 01-10-2024 Protein [Mass/Vol] 6.7 g/dL Normal 6.3-8.0 [facility] Comment on above: Order Comment: Speci men Type: BLOOD SPECIMENOrdering Facility: [facility] Address: [address] [place] [address] Performed By: #### 1 952-1, 2885-2 ####[facility] LABCLIA [id number] [facility] [id number] [place] [address] OF [facility] SERUM VISCOSITYon 01-10-2024 VISCOSITY, SERUM 1.17 cP Normal <=1.50 [facility] Comment on above: Order Comment: Speci men Type: BLOOD SPECIMENOrdering Facility: [facility] Address: [address] [place] [address] Result Comment: INTE RPRETIVE INFORMATION: Viscosity, SerumIncreased viscosity is associated with disorders such asmonoclonal gammopathy, macroglobulinemia, and multiple myeloma.Significantly elevated viscosity (>3.0 cP) is associated withclinical symptoms of hyperviscosity syndrome.This test was developed and its performance characteristicsdetermined by [facility]. It has not been cleared orapproved by the [place] Food and Drug Administration. This test wasperformed in a CLIA certified laboratory and is intended forclinical purposes.Performed By: [facility] [place] [id number] Director: Donald Banda MD, PhDCLIA Number: [id number] Performed By: #### S ERTITUS ####[facility] [id number] [place] [address] Urate SerPl-mCncon Urate [Mass/Vol] 5.7 mg/dL Normal 4.0-8.1 [facility] Comment on above: Order Comment: Speci men Type: BLOOD SPECIMENOrdering Facility: [facility] Address: [address] [place] [address] Performed By: #### 2 4323-8, 2532-0, 2777-1, 3084-1 ####[facility] LABCLIA [id number] [place] [address] Patient Letter FTMCon 2022 Patient Letter FT (Inserted Image. Kelly ble to display) July 25, 20[place] [address] : 1965 Dear Kodi, This is a SECOND ATTEMPT to remind you that you are due for an appointment with [facility]. Please contact our office at [phone] to schedule an appointment at your earliest convenience. Thank you, [facility] Reminderson 07-25-2023 Reminders - From: Kasandra Fu MA To: [facility] - Reminders/Recalls; Sent: 06/21/2023 09:31:46 EDT Show up: 06/21/2023 09:32:00 EDT Subject: colon recall Reminder Message 5 year colon recall Mynor 05/23/18 first recall letter second recall letter Normal [facility] Patient Letter FTon 2022 Patient Letter FT (Inserted Image. Kelly ble to display) June 22, 2023 K[address]I RIVAS [address] [place] [address] : 1965 Dear Kodi, This is a reminder that you are due for an appointment with [facility]. Please contact our office at [phone] to schedule an appointment at your earliest convenience. Thank you, [facility] Normal [facility] Alanine Aminotransferaseon 0 06-07-2023 ALT [Catalytic activity/Vol] 25 U/L Normal 16-63 U/L [facility] Other Basic Metabolic Panelon 08-3 Anion gap [Moles/Vol] 12.7 mmol/L [facility] Other Calcium [Mass/Vol] 8.3953742 mg/dL Normal 8.5-10 .1 mg/dL [facility] Other Chloride [Moles/Vol] 104 mmol/L Normal 98-107 mmol/L [facility] Other CO2 [Moles/Vol] 27.39381128 mmol/L Normal 21.0-3 2.0 mmol/L [facility] Other Creatinine [Mass/Vol] 0.83175821 mg/dL Normal 0.70-1.30 mg/dL [facility] Other Glucose [Mass/Vol] 121 mg/dL High 74-106 mg/dL [facility] Other Potassium [Moles/Vol] 3.37400958 mmol/L Normal 3.5-5.1 mmol/L [facility] Other Sodium [Moles/Vol] 140 mmol/L Normal 136-145 mmol/L [facility] Other Urea nitrogen [Mass/Vol] 29.3892893 mg/dL High 7.0-18.0 mg/dL [facility] Other Urea nitrogen/Creatinine [Mass ratio] 33.0 mg/mg [facility] Other Basic Metabolic Panel see note [facility] Other Basic Metabolic Panel >60 >=60 [facility] Other Lipid Panelon 06-07-2023 Cholesterol [Mass/Vol] 233 mg/dL High <=200 mg/dL [facility] Other Cholesterol in HDL [Mass/Vol] 38 mg/dL Low 40-60 mg/dL [facility] Other Triglyceride [Mass/Vol] 166 mg/dL High <=150 mg/dL [facility] Other Lipid Panel 162.0 mg/dL [facility] Other Lipid Panel 33.2 mg/dL [facility] Other Lipid Panel 6.1 [facility] Other PSA SCREENINGon 06-07-2023 PSA SCREENING 2.41 ng/mL <=4.00 ng/mL [facility] Other UA RANDOM W/MICROSCOPICon Clarity (U) CLEAR CLEAR [facility] Other Color (U) LT. YELLOW YELLOW [facility] Other Ketones Ql (U) Negative NEGATIVE mg/dL [facility] Other Leukocyte esterase Test strip Ql (U) Negative NEGATIVE [facility] Other pH (U) 6.0 [pH] 5.0-9.0 [facility] Other UA RANDOM W/MICROSCOPIC NONE SEEN #/HPF NONE SEEN #/HPF [facility] Other UA RANDOM W/MICROSCOPIC 2-5 #/HPF Abnormal 0-2 #/HPF [facility] Other UA RANDOM W/MICROSCOPIC >=1.030 Abnormal 1.005-1.025 [facility] Other UA RANDOM W/MICROSCOPIC Negative NEGATIVE [facility] Other UA RANDOM W/MICROSCOPIC LARGE Abnormal NEGATIVE [facility] Other UA RANDOM W/MICROSCOPIC 0.2 EU/dL 0.2-1.0 EU/dL [facility] Other UA RANDOM W/MICROSCOPIC NONE SEEN NONE SEEN [facility] Other UA RANDOM W/MICROSCOPIC FEW #/LPF Abnormal NONE/RARE #/LPF [facility] Other UA RANDOM W/MICROSCOPIC Seen #/HPF Abnormal None Seen #/HPF [facility] Other UA RANDOM W/MICROSCOPIC RARE [facility] Other UA RANDOM W/MICROSCOPIC ALREADY ORDERED [facility] Other US WOLFGANG DOP LEG RTon 09-28-20 22 US WOLFGANG DOP LEG RT EXAMINATION: US WOLFGANG DOP LEG RT HISTORY: Localized edema ; right calf pain and swelling COMPARISON: No relevant comparison available. FINDINGS: REGION: Right lower extremity THROMBI: None. COMPRESSIBILITY: Normal compressibility. FLOW: Normal waveform and antegrade flow between 5 and 20 cm/s. OTHER: None. IMPRESSION: 1. No deep vein thrombus within the right lower extremity. Electronically authenticated by: MENDY BIRMINGHAM Date: 2022-09-28 17:34 Normal [facility] US Venous, Unilat, Lower Ext Righton 07-25-2022 US Venous, Unilat, Lower Ext Right CLINICAL HISTORY: Right calf pain. COMPARISON: None. TECHNIQUE: The right lower extremity veins were evaluated with color Doppler, grayscale imaging, and spectral analysis while using compression and augmentation when possible. FINDINGS: Evaluation of the right lower extremity veins from the thigh to the calf shows normal phasic flow, normal augmentation of the Doppler signal, and normal compression of the deep veins. There is no sonographic evidence for acute deep venous thrombosis from the right groin to the popliteal region. There is no sonographic evidence for acute deep vein thrombosis in the right calf veins. Incidental mildly prominent lymph nodes in the right inguinal region with the largest measuring 8 mm short axis, with fatty hilum, nonspecific but likely reactive. IMPRESSION: No acute DVT of the right lower extremity veins from the groin to the knee. No acute DVT of the right calf veins. Report reported and signed by Marshall Sultana on 07/25/2022 1033 Normal [facility] [facility] LIVER WO/W IVCONon 08-05 [facility] EGD / Colonoscopyon 05-23-20 [facility] Surgical PathologyOrdered By : Ambar Ogden on 05-23-2018 [facility] Surgical Pathology Dep artmenton 04-23-2018 [facility] Surgical Pathology Department Name KODI RIVAS Pathologist: EJSUS KANG, MDDate of Procedure: 04/23/2018Date Received: 04/24/2018Date Reported 04/25/2018Submitting Physician: ALIZA GLEASON,DOLocation: JGIL Copy To/Referring/Attending:SHERRY LÓPEZ MD FINAL DIAGNOSISA. 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 SEE NOTE.-- FUNDIC TYPE GASTRIC MUCOSA WITH NO SIGNIFICANT PATHOLOGICAL FINDINGS.Note: Helicobacter pylori-like organisms are not identified.B. DUODENUM BIOPSY (COLD FORCEP): -- SMALL INTESTINAL MUCOSA WITH NO SIGNIFICANT PATHOLOGICAL FINDINGS. Electronically Signed Out By JESUS KANG MD/ANDREAS Clinical History:Suspected pancreatic neoplasm, weight loss, failure to thrive.Specimens Submitted As:A: STOMACH BIOPSY (COLD FORCEP) B: DUODENUM BIOPSY (COLD FORCEP) Gross Description:A: Received in formalin, labeled with the patient's name, number, and 1.Stomach , are four keene, irregular, glistening, pieces of soft tissue ranging insize from 0.2 x 0.2 x 0.1 cm to 0.4 x 0.3 x 0.1 cm. The specimen is filteredand submitted in toto in one cassette.JSB: Received in formalin, labeled with the patient's name, number, and 2.Duodenum , are four keene, irregular, friable, pieces of soft tissue ranging insize from 0.2 x 0.1 x 0.1 cm to 0.5 x 0 point 0.1 cm. The specimen is filteredand submitted in toto in one cassette.JSjas/04/24/[address] [facility] Comment on above: Performed By: #### A MC ####[facility] Surgical Pathology [id number] [facility] [address] GLUCOSE-POCTon 04-23-2018 Glucose mass conc 102 mg/dL High 74 - 99 [facility] Comment on above: Performed By: #### G AMANDA ####[facility] [id number] [place] [address] Glucose mass conc 105 mg/dL High 74 - 99 [facility] Comment on above: Performed By: #### G AMANDA ####[facility] [id number] [place] [address] CBC with Diffon 06-28-2017 Abs. Basophil 0.00 k/uL Normal 0.0-0.2 [facility] Comment on above: Result Comment: Perf ormed at [facility] [address] [place] [address] Performed By: #### C DP, CP ####[facility] [place] [address] Abs.Neutrophil (Seg) 6.50 k/uL Normal 1.3-9.1 [facility] Comment on above: Performed By: #### C DP, CP ####[facility] [place] [address] Basophils/100 WBC Auto (Bld) 1 % Normal [facility] Comment on above: Performed By: #### C DP, CP ####[facility] [place] [address] Eosinophils 0.10 10*3/uL Normal 0.0-0.4 [facility] Comment on above: Performed By: #### C DP, CP ####[facility] [place], [place] [address] [facility] [place] [address] Eosinophils/100 leukocytes 1 % Normal [facility] Comment on above: Performed By: #### C DP, CP ####[facility] [place] [address].[place] [address] Erythrocyte distribution width Auto Ratio (RBC) 13.6 % Normal 11.5-14.9 [facility] Comment on above: Performed By: #### C DP, CP ####[facility] [place] [address] Erythrocytes (RBC) 4.79 10*6/uL Normal 4.5-5.9 [facility] Comment on above: Performed By: #### C DP, CP ####[facility] [place] [address] Hematocrit (HCT) 42.0 % Normal 41-53 [facility] Comment on above: Performed By: #### C DP, CP ####[facility] [place], [place] [address] [place] [address] Hemoglobin mass conc (Bld) 14.1 g/dL Normal 13.5-17.5 [facility] Comment on above: Performed By: #### C DP, CP ####[facility] [place] [address] Lymphocytes 1.10 10*3/uL Normal 1.0-4.8 [facility] Comment on above: Performed By: #### C DP, CP ####[facility] [place] [address] Lymphocytes/100 leukocytes 13 % Normal [facility] Comment on above: Performed By: #### C DP, CP ####[facility] [place] [address] MCH 29.5 pg Normal 26-34 [facility] Comment on above: Performed By: #### C DP, CP ####[facility] [place] [address] MCHC mass conc (RBC) 33.6 g/dL Normal 31-37 [facility] Comment on above: Performed By: #### C DP, CP ####[address] [address] MCV 87.6 fL Normal 80-100 [facility] Comment on above: Performed By: #### C DP, CP ####[facility] [place] [address] Monocytes 0.60 10*3/uL Normal 0.1-1.3 [facility] Comment on above: Performed By: #### C DP, CP ####[address] [address] Monocytes/100 leukocytes 7 % Normal [facility] Comment on above: Performed By: #### C DP, CP ####[facility] [place] [address] Neutrophil (Seg) 78 % Normal [facility] Comment on above: Performed By: #### C DP, CP ####[address] [address] Platelet mean volume (PMV) 9.1 fL Normal 6.0-12.0 [facility] Comment on above: Performed By: #### C DP, CP ####[address] [address] Platelets 248 10*3/uL Normal 150-450 [facility] Comment on above: Performed By: #### C DP, CP ####[address] [address] WBC (Leukocytes) 8.3 10*3/uL Normal 3.5-11.0 [facility] Comment on above: Performed By: #### C DP, CP ####[address] [address] Auto Diff Performed NOT REPORTED Normal [facility] Comment on above: Performed By: #### C DP, CP ####[address] [address] Erythrocyte morphology NOT REPORTED Normal [facility] Comment on above: Performed By: #### C DP, CP ####[address] [address] Platelets NOT REPORTED Normal [facility] Comment on above: Performed By: #### C DP, CP ####[address] [address] WBC Morphology NOT REPORTED Normal [facility] Comment on above: Performed By: #### C DP, CP ####[address] [address] Comp Metabolic Profon 2016 (cont.) Normal [facility] Comment on above: Result Comment: Aver age GFR for 50-59 years old: 93 mL/min/1.73sq mChronic Kidney Disease: <60 mL/min/1.73sq mKidney failure: <15 mL/min/1.73sq meGFR calculated using average adult body mass. Additional eGFR calculator available at:http://www.[employer]/multiple_crcl_2011.htmPerformed at [facility] [address] [place] [address] Performed By: #### C DP, CP ####[address] [address] Alanine aminotransferase (ALT) 11 U/L Normal 5-41 [facility] Comment on above: Performed By: #### C DP, CP ####[address] [address] Albumin 4.3 g/dL Normal 3.5-5.2 [facility] Comment on above: Performed By: #### C DP, CP ####[address] [address] Alkaline Phos 78 U/L Normal 40-129 [facility] Comment on above: Performed By: #### C DP, CP ####[address] [address] Anion gap 13 mmol/L Normal 9-17 [facility] Comment on above: Performed By: #### C DP, CP ####[address] [address] Aspartate aminotransferase (AST) 10 U/L Normal <40 [facility] Comment on above: Performed By: #### C DP, CP ####[address] [address] Bilirubin Ql (U) 0.25 mg/dL Low 0.3-1.2 [facility] Comment on above: Performed By: #### C DP, CP ####[facility] [place] [address] Calcium 9.2 mg/dL Normal 8.6-10.4 [facility] Comment on above: Performed By: #### C DP, CP ####[address] [address] Chloride 100 mmol/L Normal 98-107 [facility] Comment on above: Performed By: #### C DP, CP ####[address] [address] CO2 27 mmol/L Normal 20-31 [facility] Comment on above: Performed By: #### C DP, CP ####[address] [address] Creatinine 0.86 mg/dL Normal 0.70-1.20 [facility] Comment on above: Performed By: #### C DP, CP ####[address] [address] eGFR (non-black) mL/min/{1.73_m2} Normal >60 [facility] Comment on above: Performed By: #### C DP, CP ####[address] [address] Glucose mass conc 124 mg/dL High 70-99 [facility] Comment on above: Performed By: #### C DP, CP ####[address] [address] Potassium molar conc 3.6 mmol/L Low 3.7-5.3 [facility] Comment on above: Performed By: #### C DP, CP ####[facility] [place] [address] Protein 6.6 g/dL Normal 6.4-8.3 [facility] Comment on above: Performed By: #### C DP, CP ####[facility] [place] [address] Sodium 140 mmol/L Normal 135-144 [facility] Comment on above: Performed By: #### C DP, CP ####[facility] [place] [address] Urea nitrogen 19 mg/dL Normal 6-20 [facility] Comment on above: Performed By: #### C DP, CP ####[facility] [place] [address].[place] [address] Albumin/Globulin Ratio NOT REPORTED Normal 1.0-2.5 [facility] Comment on above: Performed By: #### C DP, CP ####[facility] [facility] [place] [address] BUN/CRE Ratio NOT REPORTED Normal 9-20 [facility] Comment on above: Performed By: #### C DP, CP ####[facility] [facility] [place] [address] Staging: NOT REPORTED Normal [facility] Comment on above: Performed By: #### C DP, CP ####[facility] [place] [address].[place] [address] Vital Signs Date Time Vital Sign Value Performing Clinician Facility 11-12-2024 14:42-0500 Body height 175.3 cm Evan Eugene DO Work Phone: [facility] 11-12-2024 14:42-0500 Body mass index (BMI) [Ratio] 26.14 kg/m2 Evan Eugene DO Work Phone: [facility] 11-12-2024 14:42-0500 Body weight 80.29 kg Evan Valorie DO Work Phone: [facility] 11-12-2024 14:42-0500 Diastolic blood pressure 78 mm[Hg] Evan Valorie DO Work Phone: [facility] 11-12-2024 14:42-0500 Heart rate 71 /min Evan Valorie DO Work Phone: [facility] 11-12-2024 14:42-0500 SaO2% (BldA) [Mass fraction] 97 % Evan Valorei DO Work Phone: [facility] 11-12-2024 14:42-0500 Systolic blood pressure 128 mm[Hg] Evan Valorie DO Work Phone: [facility] 11-12-2024 11:20-0500 Body temperature 97.39 [degF] Chair Fannin Work Phone: [facility] 11-12-2024 11:20-0500 Diastolic blood pressure 70 mm[Hg] Chair Fannin Work Phone: [facility] 11-12-2024 11:20-0500 Heart rate 63 /min Chair Fannin Work Phone: [facility] 11-12-2024 11:20-0500 Respiratory rate 16 /min Chair Laron Work Phone: [facility] 11-12-2024 11:20-0500 SaO2% (BldA) [Mass fraction] 99 % Chair Laron Work Phone: [facility] 11-12-2024 11:20-0500 Systolic blood pressure 118 mm[Hg] Chair Fannin Work Phone: [facility] 11-12-2024 08:36-0500 Body height 176.6 cm Trinh Ramirez APRN.[employer] Work Phone: [facility] 11-12-2024 08:36-0500 Body mass index (BMI) [Ratio] 25.75 kg/m2 Trinh Ramirez RECORDS TECHNICIAN.[employer] Work Phone: [facility] 11-12-2024 08:36-0500 Body temperature 97.11 [degF] Trinh Rachael RECORDS TECHNICIAN.[employer] Work Phone: [facility] 11-12-2024 08:36-0500 Body weight 80.3 kg Trinh Rachael RECORDS TECHNICIAN.[employer] Work Phone: [facility] 11-12-2024 08:36-0500 Diastolic blood pressure 70 mm[Hg] Trinh Rachael RECORDS TECHNICIAN.[employer] Work Phone: [facility] 11-12-2024 08:36-0500 Heart rate 74 /min Trinh Rachael RECORDS TECHNICIAN.[employer] Work Phone: [facility] 11-12-2024 08:36-0500 Respiratory rate 16 /min Trinh Rachael RECORDS TECHNICIAN.[employer] Work Phone: [facility] 11-12-2024 08:36-0500 SaO2% (BldA) [Mass fraction] 98 % Trinh Rachael RECORDS TECHNICIAN.[employer] Work Phone: [facility] 11-12-2024 08:36-0500 Systolic blood pressure 112 mm[Hg] Trinh Rachael RECORDS TECHNICIAN.[employer] Work Phone: [facility] 11-11-2024 09:00-0500 Body height 175.26 cm Joby Ball DO Work Phone: [facility] 11-11-2024 09:00-0500 Body mass index (BMI) [Ratio] 26.1 kg/m2 Joby Ball DO Work Phone: [facility] 11-11-2024 09:00-0500 Body weight 80.28 kg Joby Ball DO Work Phone: [facility] 11-11-2024 09:00-0500 Diastolic blood pressure 77 mm[Hg] Joby Ball DO Work Phone: [facility] 11-11-2024 09:00-0500 Heart rate 67 /min Joby Ball DO Work Phone: [facility] 11-11-2024 09:00-0500 SaO2% (BldA) [Mass fraction] 98 % Joby Ball DO Work Phone: [facility] 11-11-2024 09:00-0500 Systolic blood pressure 126 mm[Hg] Joby Ball DO Work Phone: [facility] 09-22-2024 13:41-0500 Body height 177.8 cm Joby Francocek DO Work Phone: [facility] 09-22-2024 13:41-0500 Body mass index (BMI) [Ratio] 25.68 kg/m2 Joby Murcek DO Work Phone: [facility] 09-22-2024 13:41-0500 Body weight 81.19 kg Joby Francocek DO Work Phone: [facility] 09-17-2024 10:40-0500 Body temperature 98.4 [degF] Chair Fannin Work Phone: [facility] 09-17-2024 10:40-0500 Diastolic blood pressure 78 mm[Hg] Chair Laron Work Phone: [facility] 09-17-2024 10:40-0500 Heart rate 70 /min Chair Fannin Work Phone: [facility] 09-17-2024 10:40-0500 Respiratory rate 16 /min Chair Fannin Work Phone: [facility] 09-17-2024 10:40-0500 SaO2% (BldA) [Mass fraction] 100 % Chair Fannin Work Phone: [facility] 09-17-2024 10:40-0500 Systolic blood pressure 142 mm[Hg] Chair Fannin Work Phone: [facility] 09-17-2024 08:47-0500 Body height 176.6 cm Joon Piper MD Work Phone: [facility] 09-17-2024 08:47-0500 Body mass index (BMI) [Ratio] 25.17 kg/m2 Joon Piper MD Work Phone: [facility] 09-17-2024 08:47-0500 Body temperature 97.39 [degF] Joon Piper MD Work Phone: [facility] 09-17-2024 08:47-0500 Body weight 78.5 kg Joon Piper MD Work Phone: [facility] 09-17-2024 08:47-0500 Diastolic blood pressure 78 mm[Hg] Joon Piper MD Work Phone: [facility] 09-17-2024 08:47-0500 Heart rate 79 /min Joon Piper MD Work Phone: [facility] 09-17-2024 08:47-0500 Respiratory rate 16 /min Joon Piper MD Work Phone: [facility] 09-17-2024 08:47-0500 SaO2% (BldA) [Mass fraction] 99 % Joon Piper MD Work Phone: [facility] 09-17-2024 08:47-0500 Systolic blood pressure 131 mm[Hg] Joon Piper MD Work Phone: [facility] 09-12-2024 11:38-0500 Diastolic blood pressure 81 mm[Hg] Joby Ball DO Work Phone: [facility] 09-12-2024 11:38-0500 Heart rate 94 /min Joby Ball DO Work Phone: [facility] 09-12-2024 11:38-0500 Respiratory rate 16 /min Joby Ball DO Work Phone: [facility] 09-12-2024 11:38-0500 SaO2% (BldA) [Mass fraction] 93 % Joby Ball DO Work Phone: [facility] 09-12-2024 11:38-0500 Systolic blood pressure 138 mm[Hg] Joby Ball DO Work Phone: [facility] 09-12-2024 10:49-0500 Body temperature 98.6 [degF] Joby Ball DO Work Phone: [facility] 09-12-2024 10:29-0500 Inhaled oxygen flow rate 0 L/min Joby Ball DO Work Phone: [facility] 09-12-2024 06:23-0500 Body height 175.26 cm Joby Ball DO Work Phone: [facility] 09-12-2024 06:23-0500 Body weight 79.37 kg Joby Ball DO Work Phone: [facility] 09-10-2024 11:26-0500 Body temperature 97.5 [degF] Chair Fannin Work Phone: [facility] 09-10-2024 11:26-0500 Diastolic blood pressure 67 mm[Hg] Chair Fannin Work Phone: [facility] 09-10-2024 11:26-0500 Heart rate 63 /min Chair Fannin Work Phone: [facility] 09-10-2024 11:26-0500 Respiratory rate 16 /min Chair Laron Work Phone: [facility] 09-10-2024 11:26-0500 SaO2% (BldA) [Mass fraction] 99 % Chair Fannin Work Phone: [facility] 09-10-2024 11:26-0500 Systolic blood pressure 126 mm[Hg] Chair Fannin Work Phone: [facility] 09-10-2024 08:45-0500 Body height 176.6 cm Wanda Steinerer PA-C Work Phone: [facility] 09-10-2024 08:45-0500 Body mass index (BMI) [Ratio] 25.81 kg/m2 Wanda Vandana PA-C Work Phone: [facility] 09-10-2024 08:45-0500 Body temperature 97.81 [degF] Wanda Vandana PA-C Work Phone: [facility] 09-10-2024 08:45-0500 Body weight 80.5 kg Wanda Vandana PA-C Work Phone: [facility] 09-10-2024 08:45-0500 Diastolic blood pressure 73 mm[Hg] Wanda Vandana PA-C Work Phone: [facility] 09-10-2024 08:45-0500 Heart rate 66 /min Wanda Vandana PA-C Work Phone: [facility] 09-10-2024 08:45-0500 Respiratory rate 18 /min Wanda Vandana PA-C Work Phone: [facility] 09-10-2024 08:45-0500 SaO2% (BldA) [Mass fraction] 99 % Wanda Vandana PA-C Work Phone: [facility] 09-10-2024 08:45-0500 Systolic blood pressure 129 mm[Hg] Wanda Vandana PA-C Work Phone: [facility] 08-27-2024 12:40-0500 Body temperature 98.01 [degF] Chair Fannin Work Phone: [facility] 08-27-2024 12:40-0500 Diastolic blood pressure 65 mm[Hg] Chair Laron Work Phone: [facility] 08-27-2024 12:40-0500 Heart rate 70 /min Chair Fannin Work Phone: [facility] 08-27-2024 12:40-0500 Respiratory rate 16 /min Chair Fannin Work Phone: [facility] 08-27-2024 12:40-0500 SaO2% (BldA) [Mass fraction] 98 % Chair Fannin Work Phone: [facility] Comment on above: RA 08-27-2024 12:40-0500 Systolic blood pressure 110 mm[Hg] Chair Laron Work Phone: [facility] 08-27-2024 08:59-0500 Body height 176.6 cm Trinh Rachael RECORDS TECHNICIAN.[employer] Work Phone: [facility] Comment on above: verified by 2 caregivers with shoes on 08-27-2024 08:59-0500 Body mass index (BMI) [Ratio] 25.91 kg/m2 Trinh Rachael RECORDS TECHNICIAN.[employer] Work Phone: [facility] 08-27-2024 08:59-0500 Body temperature 97.59 [degF] Trinh Rachael RECORDS TECHNICIAN.[employer] Work Phone: [facility] 08-27-2024 08:59-0500 Body weight 80.8 kg Trinh Ramirez RECORDS TECHNICIAN.[employer] Work Phone: [facility] 08-27-2024 08:59-0500 Diastolic blood pressure 69 mm[Hg] Trinh Rachael RECORDS TECHNICIAN.[employer] Work Phone: [facility] 08-27-2024 08:59-0500 Heart rate 69 /min Trinh Rachael RECORDS TECHNICIAN.[employer] Work Phone: [facility] 08-27-2024 08:59-0500 Respiratory rate 18 /min Trinh Rachael RECORDS TECHNICIAN.[employer] Work Phone: [facility] 08-27-2024 08:59-0500 SaO2% (BldA) [Mass fraction] 98 % Trinh Rachael RECORDS TECHNICIAN.[employer] Work Phone: [facility] 08-27-2024 08:59-0500 Systolic blood pressure 118 mm[Hg] Trinh Rachael RECORDS TECHNICIAN.[employer] Work Phone: [facility] 08-20-2024 13:41-0500 Body temperature 98.1 [degF] Chair Laron Work Phone: [facility] 08-20-2024 13:41-0500 Diastolic blood pressure 78 mm[Hg] Chair Fannin Work Phone: [facility] 08-20-2024 13:41-0500 Heart rate 60 /min Chair Fannin Work Phone: [facility] 08-20-2024 13:41-0500 Respiratory rate 16 /min Chair Laron Work Phone: [facility] 08-20-2024 13:41-0500 SaO2% (BldA) [Mass fraction] 100 % Chair Laron Work Phone: [facility] 08-20-2024 13:41-0500 Systolic blood pressure 125 mm[Hg] Chair Laron Work Phone: [facility] 08-20-2024 09:16-0500 Body height 176.3 cm Chair Laron Work Phone: [facility] Comment on above: 2 caregivers, shoes on; JL/BD 08-20-2024 09:16-0500 Body mass index (BMI) [Ratio] 25.77 kg/m2 Chair Laron Work Phone: [facility] 08-20-2024 09:16-0500 Body weight 80.1 kg Chair Laron Work Phone: [facility] 07-31-2024 11:03-0400 Body height 175.1 cm Joon Piper MD Work Phone: [facility] 07-31-2024 11:03-0400 Body mass index (BMI) [Ratio] 26.13 kg/m2 Joon Piper MD Work Phone: [facility] 07-31-2024 11:03-0400 Body temperature 97.3 [degF] Joon Piper MD Work Phone: [facility] 07-31-2024 11:03-0400 Body weight 80.1 kg Joon Piper MD Work Phone: [facility] 07-31-2024 11:03-0400 Diastolic blood pressure 82 mm[Hg] Joon Piper MD Work Phone: [facility] 07-31-2024 11:03-0400 Heart rate 73 /min Joon Piper MD Work Phone: [facility] 07-31-2024 11:03-0400 Respiratory rate 16 /min Joon Piper MD Work Phone: [facility] 07-31-2024 11:03-0400 SaO2% (BldA) [Mass fraction] 99 % Joon Piper MD Work Phone: [facility] 07-31-2024 11:03-0400 Systolic blood pressure 155 mm[Hg] Joon Piper MD Work Phone: [facility] 07-14-2024 13:35-0400 Body height 177.8 cm Joby Sol DO Work Phone: [facility] 07-14-2024 13:35-0400 Body mass index (BMI) [Ratio] 25.68 kg/m2 Joby Sol DO Work Phone: [facility] 07-14-2024 13:35-0400 Body weight 81.19 kg Joby Sol DO Work Phone: [facility] 07-01-2024 14:05-0400 Body height 177.8 cm Silke Hitchcock [employer] Work Phone: [facility] 07-01-2024 14:05-0400 Diastolic blood pressure 70 mm[Hg] Silke Hitchcock [employer] Work Phone: [facility] 07-01-2024 14:05-0400 Heart rate 74 /min Silke Hitchcock [employer] Work Phone: [facility] 07-01-2024 14:05-0400 SaO2% (BldA) [Mass fraction] 93 % Silke Hitchcock [employer] Work Phone: [facility] 07-01-2024 14:05-0400 Systolic blood pressure 138 mm[Hg] Silke Treadwellmagno AHUJA Work Phone: [facility] 06-24-2024 09:57-0400 Body height 175.3 cm Mejia Saravia MD Work Phone: [facility] 06-24-2024 09:57-0400 Body mass index (BMI) [Ratio] 25.99 kg/m2 Mejia Saravia MD Work Phone: [facility] 06-24-2024 09:57-0400 Body weight 79.83 kg Mejia Saravia MD Work Phone: [facility] 06-24-2024 09:57-0400 Diastolic blood pressure 83 mm[Hg] Mejia Saravia MD Work Phone: [facility] 06-24-2024 09:57-0400 Heart rate 77 /min Mejia Saravia MD Work Phone: [facility] 06-24-2024 09:57-0400 Systolic blood pressure 171 mm[Hg] Mejia Saravia MD Work Phone: [facility] 06-23-2024 15:57-0400 Body height 175.26 cm [facility] 06-23-2024 15:57-0400 Body mass index (BMI) [Ratio] 25.7 kg/m2 [facility] 06-23-2024 15:57-0400 Body temperature 98.2 [degF] [facility] 06-23-2024 15:57-0400 Body weight 78.98 kg [facility] 06-23-2024 15:57-0400 Diastolic blood pressure 77 mm[Hg] [facility] 06-23-2024 15:57-0400 Heart rate 82 /min [facility] 06-23-2024 15:57-0400 Respiratory rate 18 /min [facility] 06-23-2024 15:57-0400 SaO2% (BldA) [Mass fraction] 96 % [facility] 06-23-2024 15:57-0400 Systolic blood pressure 135 mm[Hg] [facility] 05-21-2024 09:32-0400 Body height 177.8 cm [facility] 05-21-2024 09:32-0400 Body mass index (BMI) [Ratio] 25.7 kg/m2 [facility] 05-21-2024 09:32-0400 Body weight 81.19 kg [facility] 05-21-2024 09:32-0400 Diastolic blood pressure 72 mm[Hg] [facility] 05-21-2024 09:32-0400 Heart rate 63 /min [facility] 05-21-2024 09:32-0400 Respiratory rate 12 /min [facility] 05-21-2024 09:32-0400 Systolic blood pressure 128 mm[Hg] [facility] 05-13-2024 14:09-0400 Body height 175.3 cm Mejia Saravia MD Work Phone: [facility] 05-13-2024 14:09-0400 Body mass index (BMI) [Ratio] 25.84 kg/m2 Mejia Saravia MD Work Phone: [facility] 05-13-2024 14:09-0400 Body weight 79.38 kg Mejia Saravia MD Work Phone: [facility] 05-13-2024 14:09-0400 Diastolic blood pressure 70 mm[Hg] Mejia Saravia MD Work Phone: [facility] 05-13-2024 14:09-0400 Heart rate 68 /min Mejia Saravia MD Work Phone: [facility] 05-13-2024 14:09-0400 Systolic blood pressure 142 mm[Hg] Mejia Saravia MD Work Phone: [facility] 05-08-2024 10:37-0400 Body height 175.1 cm Wanda Rodriguez PA-C Work Phone: [facility] 05-08-2024 10:37-0400 Body mass index (BMI) [Ratio] 26.13 kg/m2 Wanda Vandana PA-C Work Phone: [facility] 05-08-2024 10:37-0400 Body temperature 97.3 [degF] Wanda Vandana PA-C Work Phone: [facility] 05-08-2024 10:37-0400 Body weight 80.1 kg Wanda Vandana PA-C Work Phone: [facility] 05-08-2024 10:37-0400 Diastolic blood pressure 74 mm[Hg] Wanda Vandana PA-C Work Phone: [facility] 05-08-2024 10:37-0400 Heart rate 87 /min Wanda Vandana PA-C Work Phone: [facility] 05-08-2024 10:37-0400 Respiratory rate 18 /min Wanda Vandana PA-C Work Phone: [facility] 05-08-2024 10:37-0400 SaO2% (BldA) [Mass fraction] 98 % Wanda Vandana PA-C Work Phone: [facility] 05-08-2024 10:37-0400 Systolic blood pressure 137 mm[Hg] Wanda Vandana PA-C Work Phone: [facility] 01-22-2024 10:14-0400 Body height 175.3 cm P[facility] 1 [facility] 01-22-2024 10:14-0400 Body mass index (BMI) [Ratio] 25.84 kg/m2 P[facility] 1 [facility] 01-22-2024 10:14-0400 Body weight 79.38 kg Pmh 1 [facility] 01-17-2024 10:47-0400 Body height 175.1 cm Joon Piper MD Work Phone: [facility] 01-17-2024 10:47-0400 Body temperature 97.59 [degF] Joon Piper MD Work Phone: [facility] 01-17-2024 10:47-0400 Body weight 81.2 kg Joon Piper MD Work Phone: [facility] 01-17-2024 10:47-0400 Diastolic blood pressure 71 mm[Hg] Joon Piper MD Work Phone: [facility] 01-17-2024 10:47-0400 Heart rate 76 /min Joon Piper MD Work Phone: [facility] 01-17-2024 10:47-0400 Respiratory rate 16 /min Joon Piper MD Work Phone: [facility] 01-17-2024 10:47-0400 SaO2% (BldA) [Mass fraction] 95 % Joon Piper MD Work Phone: [facility] 01-17-2024 10:47-0400 Systolic blood pressure 154 mm[Hg] Joon Piper MD Work Phone: [facility] 01-08-2024 09:41-0400 Body height 175.3 cm Olamide Velasquez RECORDS TECHNICIAN-[employer] Work Phone: [facility] 01-08-2024 09:41-0400 Body mass index (BMI) [Ratio] 26.73 kg/m2 Olamide Velasquez RECORDS TECHNICIAN[employer] Work Phone: [facility] 01-08-2024 09:41-0400 Body weight 82.1 kg Olamide Velasquez RECORDS TECHNICIAN[employer] Work Phone: [facility] 01-08-2024 09:41-0400 Diastolic blood pressure 70 mm[Hg] Olamide Velasquez RECORDS TECHNICIAN[employer] Work Phone: [facility] 01-08-2024 09:41-0400 Systolic blood pressure 147 mm[Hg] Olamide Velasquez RECORDS TECHNICIAN[employer] Work Phone: [facility] 10-10-2023 10:30-0500 Body height 177.8 cm Josy Santana Other [employer] Other 10-10-2023 10:30-0500 Body mass index (BMI) [Ratio] 25.19 kg/m2 Josy Santana Other [employer] Other 10-10-2023 10:30-0500 Body weight 79.65 kg Josy Santana Other [employer] Other 10-10-2023 10:30-0500 Diastolic blood pressure 82 mm[Hg] Josy Santana Other [employer] Other 10-10-2023 10:30-0500 Systolic blood pressure 144 mm[Hg] Josy Santana Other [employer] Other 08-02-2023 10:50-0400 Body height 175.1 cm Joon Piper MD Work Phone: [facility] 08-02-2023 10:50-0400 Body temperature 97.39 [degF] Joon Piper MD Work Phone: [facility] 08-02-2023 10:50-0400 Body weight 82.01 kg Joon Piper MD Work Phone: [facility] 08-02-2023 10:50-0400 Diastolic blood pressure 70 mm[Hg] Joon Piper MD Work Phone: [facility] 08-02-2023 10:50-0400 Heart rate 76 /min Joon Piper MD Work Phone: [facility] 08-02-2023 10:50-0400 Respiratory rate 18 /min Joon Piper MD Work Phone: [facility] 08-02-2023 10:50-0400 SaO2% (BldA) [Mass fraction] 97 % Jono Piper MD Work Phone: [facility] 08-02-2023 10:50-0400 Systolic blood pressure 136 mm[Hg] Joon Piper MD Work Phone: [facility] 06-06-2023 15:00-0400 Body height 177.8 cm Joby Ball Other [employer] Other 06-06-2023 15:00-0400 Body mass index (BMI) [Ratio] 25.28 kg/m2 Joby Ball Other [employer] Other 06-06-2023 15:00-0400 Body weight 79.92 kg Joby Ball Other [employer] Other 06-06-2023 15:00-0400 Diastolic blood pressure 78 mm[Hg] Joby Ball Other [employer] Other 06-06-2023 15:00-0400 Respiratory rate 12 /min Joby Ball Other [employer] Other 06-06-2023 15:00-0400 Systolic blood pressure 135 mm[Hg] Joby Ball Other [employer] Other 05-28-2023 13:54-0400 Body height 175.1 cm Joon Piper MD Work Phone: [facility] 05-28-2023 13:54-0400 Body temperature 97.5 [degF] Joon Piper MD Work Phone: [facility] 05-28-2023 13:54-0400 Body weight 80.29 kg Joon Piper MD Work Phone: [facility] 05-28-2023 13:54-0400 Diastolic blood pressure 71 mm[Hg] Joon Piper MD Work Phone: [facility] 05-28-2023 13:54-0400 Heart rate 75 /min Joon Piper MD Work Phone: [facility] 05-28-2023 13:54-0400 Respiratory rate 16 /min Joon Piper MD Work Phone: [facility] 05-28-2023 13:54-0400 SaO2% (BldA) [Mass fraction] 100 % Joon Piper MD Work Phone: [facility] 05-28-2023 13:54-0400 Systolic blood pressure 147 mm[Hg] Joon Piper MD Work Phone: [facility] 05-09-2023 12:35-0400 Diastolic blood pressure 68 mm[Hg] Chair Laron Work Phone: [facility] 05-09-2023 12:35-0400 Heart rate 63 /min Chair Fannin Work Phone: [facility] 05-09-2023 12:35-0400 Respiratory rate 16 /min Chair Fannin Work Phone: [facility] 05-09-2023 12:35-0400 SaO2% (BldA) [Mass fraction] 98 % Chair Laron Work Phone: [facility] 05-09-2023 12:35-0400 Systolic blood pressure 125 mm[Hg] Chair Fannin Work Phone: [facility] 05-09-2023 10:56-0400 Body temperature 98.2 [degF] Chair Fannin Work Phone: [facility] 05-02-2023 12:46-0400 Body temperature 97.9 [degF] Chair Fannin Work Phone: [facility] 05-02-2023 12:46-0400 Diastolic blood pressure 77 mm[Hg] Chair Fannin Work Phone: [facility] 05-02-2023 12:46-0400 Heart rate 60 /min Chair Fannin Work Phone: [facility] 05-02-2023 12:46-0400 Respiratory rate 18 /min Chair Laron Work Phone: [facility] 05-02-2023 12:46-0400 SaO2% (BldA) [Mass fraction] 98 % Chair Laron Work Phone: [facility] 05-02-2023 12:46-0400 Systolic blood pressure 120 mm[Hg] Chair Laron Work Phone: [facility] 04-25-2023 09:29-0400 Body height 175.1 cm Joon Piper MD Work Phone: [facility] 04-25-2023 09:29-0400 Body temperature 97.39 [degF] Joon Piper MD Work Phone: [facility] 04-25-2023 09:29-0400 Body weight 79.83 kg Joon Piper MD Work Phone: [facility] 04-25-2023 09:29-0400 Diastolic blood pressure 74 mm[Hg] Joon Piper MD Work Phone: [facility] 04-25-2023 09:29-0400 Heart rate 74 /min Joon Piper MD Work Phone: [facility] 04-25-2023 09:29-0400 Respiratory rate 16 /min Joon Piper MD Work Phone: [facility] 04-25-2023 09:29-0400 SaO2% (BldA) [Mass fraction] 100 % Joon Piper MD Work Phone: [facility] 04-25-2023 09:29-0400 Systolic blood pressure 148 mm[Hg] Joon Piper MD Work Phone: [facility] 04-18-2023 15:45-0400 Diastolic blood pressure 71 mm[Hg] Fannin Work Phone: [facility] 04-18-2023 15:45-0400 Heart rate 64 /min Chair Fannin Work Phone: [facility] 04-18-2023 15:45-0400 Respiratory rate 18 /min Chair Fannin Work Phone: [facility] 04-18-2023 15:45-0400 SaO2% (BldA) [Mass fraction] 98 % Chair Fannin Work Phone: [facility] 04-18-2023 15:45-0400 Systolic blood pressure 125 mm[Hg] Chair Fannin Work Phone: [facility] 04-18-2023 13:48-0400 Body temperature 97.81 [degF] Chair Fannin Work Phone: [facility] 04-18-2023 09:47-0400 Body height 175.1 cm Zeynep Burton APRN.[employer] Work Phone: [facility] 04-18-2023 09:47-0400 Body temperature 97.9 [degF] Zeynep Burton APRN.[employer] Work Phone: [facility] 04-18-2023 09:47-0400 Body weight 78.93 kg Zeynep Burton APRN.[employer] Work Phone: [facility] 04-18-2023 09:47-0400 Diastolic blood pressure 68 mm[Hg] Zeynep Burton APRN.[employer] Work Phone: [facility] 04-18-2023 09:47-0400 Heart rate 74 /min Zeynep Burton APRN.[employer] Work Phone: [facility] 04-18-2023 09:47-0400 Respiratory rate 16 /min Zeynep Burton APRN.[employer] Work Phone: [facility] 04-18-2023 09:47-0400 SaO2% (BldA) [Mass fraction] 100 % Zeynep Burton APRN.[employer] Work Phone: [facility] 04-18-2023 09:47-0400 Systolic blood pressure 126 mm[Hg] Zeynep Burton APRN.[employer] Work Phone: [facility] 02-09-2023 08:32-0400 Body height 175.3 cm Joon Piper MD Work Phone: [facility] 02-09-2023 08:32-0400 Body temperature 97.59 [degF] Joon Piper MD Work Phone: [facility] 02-09-2023 08:32-0400 Body weight 80.65 kg Joon Piper MD Work Phone: [facility] 02-09-2023 08:32-0400 Diastolic blood pressure 73 mm[Hg] Joon Piper MD Work Phone: [facility] 02-09-2023 08:32-0400 Heart rate 73 /min Joon Piper MD Work Phone: [facility] 02-09-2023 08:32-0400 Respiratory rate 16 /min Joon Piper MD Work Phone: [facility] 02-09-2023 08:32-0400 SaO2% (BldA) [Mass fraction] 99 % Joon Piper MD Work Phone: [facility] 02-09-2023 08:32-0400 Systolic blood pressure 147 mm[Hg] Joon Piper MD Work Phone: [facility] 11-10-2022 09:33-0500 Body height 175.6 cm Zeynep Burton APRN.[employer] Work Phone: [facility] 11-10-2022 09:33-0500 Body temperature 97.2 [degF] Zeynep Burton APRN.[employer] Work Phone: [facility] 11-10-2022 09:33-0500 Body weight 81.65 kg Zeynep Burton APRN.[employer] Work Phone: [facility] 11-10-2022 09:33-0500 Diastolic blood pressure 66 mm[Hg] Zeynep Burton RECORDS TECHNICIAN.[employer] Work Phone: [facility] 11-10-2022 09:33-0500 Heart rate 77 /min Zeynep Burton RECORDS TECHNICIAN.[employer] Work Phone: [facility] 11-10-2022 09:33-0500 Respiratory rate 16 /min Zeynep Burton RECORDS TECHNICIAN.[employer] Work Phone: [facility] 11-10-2022 09:33-0500 SaO2% (BldA) [Mass fraction] 99 % Zeynep Burton RECORDS TECHNICIAN.[employer] Work Phone: [facility] 11-10-2022 09:33-0500 Systolic blood pressure 144 mm[Hg] Zeynep Burton RECORDS TECHNICIAN.[employer] Work Phone: [facility] 08-11-2022 09:14-0400 Body height 175.6 cm Joon Piper MD Work Phone: [facility] 08-11-2022 09:14-0400 Body temperature 97.11 [degF] Joon Piper MD Work Phone: [facility] 08-11-2022 09:14-0400 Body weight 82.46 kg Joon Piper MD Work Phone: [facility] 08-11-2022 09:14-0400 Diastolic blood pressure 75 mm[Hg] Joon Piper MD Work Phone: [facility] 08-11-2022 09:14-0400 Heart rate 72 /min Joon Piper MD Work Phone: [facility] 08-11-2022 09:14-0400 Respiratory rate 16 /min Joon Piper MD Work Phone: [facility] 08-11-2022 09:14-0400 SaO2% (BldA) [Mass fraction] 99 % Joon Piper MD Work Phone: [facility] 08-11-2022 09:14-0400 Systolic blood pressure 128 mm[Hg] Joon Piper MD Work Phone: [facility] 05-12-2022 09:03-0400 Body height 175.6 cm Joon Piper MD Work Phone: [facility] 05-12-2022 09:03-0400 Body temperature 97.5 [degF] Joon Piper MD Work Phone: [facility] 05-12-2022 09:03-0400 Body weight 80.65 kg Joon Piper MD Work Phone: [facility] 05-12-2022 09:03-0400 Diastolic blood pressure 67 mm[Hg] Joon Piper MD Work Phone: [facility] 05-12-2022 09:03-0400 Heart rate 79 /min Joon Piper MD Work Phone: [facility] 05-12-2022 09:03-0400 Respiratory rate 16 /min Joon Piper MD Work Phone: [facility] 05-12-2022 09:03-0400 SaO2% (BldA) [Mass fraction] 98 % Joon Piper MD Work Phone: [facility] 05-12-2022 09:03-0400 Systolic blood pressure 153 mm[Hg] Joon Piper MD Work Phone: [facility] 02-10-2022 08:44-0400 Body height 175.6 cm Zeynep Burton APRN.[employer] Work Phone: [facility] 02-10-2022 08:44-0400 Body temperature 97.59 [degF] Zeynep Burton APRN.[employer] Work Phone: [facility] 02-10-2022 08:44-0400 Body weight 82.1 kg Zeynep Burton APRN.[employer] Work Phone: [facility] 02-10-2022 08:44-0400 Diastolic blood pressure 69 mm[Hg] Zeynep Burton APRN.BELINDA Work Phone: [facility] 02-10-2022 08:44-0400 Heart rate 81 /min Zeynep Burton APRN.[employer] Work Phone: [facility] 02-10-2022 08:44-0400 Respiratory rate 16 /min Zeynep Burton APRN.[employer] Work Phone: [facility] 02-10-2022 08:44-0400 SaO2% (BldA) [Mass fraction] 99 % Zeynep Burton RECORDS TECHNICIAN.[employer] Work Phone: [facility] 02-10-2022 08:44-0400 Systolic blood pressure 137 mm[Hg] Zeynep Burton APRN.[employer] Work Phone: [facility] Encounters Encounter Date Encounter Type Care Provider Facility Start: 12-11-2024 End: 12-11-2024 Bamboo flowsheet Evan Valorie DO Work Phone: [facility] Start: 12-11-2024 End: 12-11-2024 Bamboo flowsheet Evan Valorie DO Work Phone: [facility] Start: 11-17-2024 End: 11-17-2024 Follow-up encounter Trinh Ramirez APRN.[employer] Work Phone: Hematology/Oncology Start: 11-12-2024 End: 11-12-2024 ambulatory EVAN EUGENE Not Available Start: 11-12-2024 End: 11-12-2024 Bamboo flowsheet Evan Valorie DO Work Phone: [facility] Start: 11-12-2024 End: 11-12-2024 Bamboo flowsheet Evan Valorie DO Work Phone: [facility] Start: 11-12-2024 End: 11-12-2024 ambulatory Chair 8 Fannin Work Phone: Hematology/Oncology Comment on above: Waldenstrom macroglo bulinemia (Primary Dx) Start: 11-12-2024 End: 11-12-2024 Office outpatient visit 25 minutes Trinh Ramirez APRN.CNP Work Phone: Hematology/Oncology Comment on above: Waldenstrom macroglo bulinemia (Primary Dx); Paraneoplastic neuropathy (HCC) TIANNA (obstructive sle ep apnea) (Primary Dx); Hypersomnia; Snoring; Numbness Start: 11-12-2024 End: 11-12-2024 ambulatory JOBY MAYS Facility:[facility] Start: 11-11-2024 End: 11-11-2024 ambulatory Joby Mays DO Work Phone: [facility] Work Phone: Start: 11-11-2024 End: 11-11-2024 Patient encounter procedure Joby Mays DO Work Phone: [facility] Work Phone: Start: 11-05-2024 End: 11-05-2024 Telephone encounter Trinh Ramirez APRN.CNP Work Phone: Hematology/Oncology Comment on above: Lab Orders Start: 10-29-2024 End: 10-29-2024 Bamboo flowsheet Joby Sol DO Work Phone: [facility] Start: 10-29-2024 End: 10-29-2024 Bamboo flowsheet Joby Sol DO Work Phone: [facility] Start: 10-29-2024 End: 10-29-2024 Postop follow up visit related to original px Joby Sol DO Work Phone: [facility] Comment on above: Obstructive sleep ap hermelinda (Primary Dx) Start: 10-29-2024 End: 10-29-2024 ambulatory JOBY SOL Not Available Start: 09-22-2024 End: 09-22-2024 Bamboo flowsheet Joby Sol DO Work Phone: [facility] Start: 09-22-2024 End: 09-22-2024 Bamboo flowsheet Joby Sol DO Work Phone: [facility] Start: 09-22-2024 End: 09-22-2024 Postop follow up visit related to original px Joby Sol DO Work Phone: [facility] Comment on above: Obstructive sleep ap hermelinda (Primary Dx) Start: 09-22-2024 End: 09-22-2024 ambulatory OJBY SOL Not Available Start: 09-17-2024 End: 09-17-2024 Office outpatient visit 25 minutes Joon Piper MD Work Phone: Hematology/Oncology Comment on above: Waldenstrom macroglo bulinemia (Primary Dx); Paraneoplastic neuropathy (HCC); Malaise and fatigue Start: 09-17-2024 End: 09-17-2024 ambulatory Chair Denise AranaFannin Work Phone: Hematology/Oncology Comment on above: Waldenstrom macroglo bulinemia (Primary Dx) Start: 09-17-2024 Non-patient / Non-visit Aniket in [facility] DO Work Phone: [facility] Work Phone: Start: 09-12-2024 End: 09-12-2024 External Result Encounter Joby Sol DO Work Phone: [facility] External Department Unsolicited Start: 09-12-2024 End: 09-12-2024 External Result Encounter Joby Sol DO Work Phone: [facility] External Department Unsolicited Start: 09-12-2024 End: 09-12-2024 Admission to same day surgery center Joby Mays DO Work Phone: [facility] [place] Start: 09-12-2024 End: 09-12-2024 ambulatory Joby Sol Facility:[facility] Start: 09-10-2024 End: 09-10-2024 Office outpatient visit 15 minutes Wanda Rodriguez PA-C Work Phone: Hematology/Oncology Comment on above: Waldenstrom macroglo bulinemia (Primary Dx) Start: 09-10-2024 End: 09-10-2024 ambulatory Chair 6 Laron Work Phone: Hematology/Oncology Comment on above: Waldenstrom macroglo bulinemia (Primary Dx) Start: 09-10-2024 Non-patient / Non-visit Benjam in Ball DO Work Phone: [facility] Work Phone: Start: 09-01-2024 End: 09-02-2024 Telephone encounter Joon Piper MD Work Phone: [facility] Comment on above: Appointment Cancelle d Start: 08-29-2024 End: 08-29-2024 ambulatory Joby Sol Facility:[facility] Start: 08-29-2024 Encounter for preprocedural cardiovascular examination Joby Sol [facility] Start: 08-29-2024 End: 08-29-2024 Patient encounter procedure Joby Tabatha DO Work Phone: [facility] Work Phone: Start: 08-27-2024 End: 08-27-2024 Office outpatient visit 25 minutes Trinh Ramirez APRN.CNP Work Phone: Hematology/Oncology Comment on above: Waldenstrom macroglo bulinemia (Primary Dx); Malaise and fatigue Start: 08-27-2024 End: 08-27-2024 ambulatory Chair 9 Laron Work Phone: Hematology/Oncology Comment on above: Waldenstrom macroglo bulinemia (Primary Dx) Start: 08-20-2024 End: 08-20-2024 ambulatory Chair 7 Laron Work Phone: Hematology/Oncology Comment on above: Waldenstrom macroglo bulinemia (Primary Dx) Start: 08-20-2024 Non-patient / Non-visit Benjam in Ball DO Work Phone: [facility] Work Phone: Start: 08-13-2024 Non-patient / Non-visit Aniket Mays DO Work Phone: [facility] Work Phone: Start: 08-13-2024 End: 08-13-2024 ambulatory JOBY MAYS Facility:[facility] Start: 07-31-2024 End: 07-31-2024 ambulatory JOBY MAYS Facility:[facility] Start: 07-31-2024 End: 07-31-2024 Office outpatient visit 25 minutes Joon Piper MD Work Phone: Hematology/Oncology Comment on above: Waldenstrom macroglo bulinemia (Primary Dx); Paraneoplastic neuropathy (HCC); Malaise and fatigue; Monoclonal gammopathy; Malignant lymphoma, lymphoplasmacytic (HCC) Start: 07-24-2024 End: 07-24-2024 ambulatory JOBY MAYS Facility:[facility] Start: 07-14-2024 End: 07-14-2024 Bamboo flowsheet Joby Sol DO Work Phone: [facility] Start: 07-14-2024 End: 07-14-2024 Bamboo flowsheet Joby Sol DO Work Phone: [facility] Start: 07-14-2024 End: 07-14-2024 Office outpatient visit 25 minutes Joby Fang Joanskip DO [facility] Comment on above: Obstructive sleep ap hermelinda (Primary Dx); Intolerance of continuous positive airway pressure (CPAP) ventilation Start: 07-14-2024 End: 07-14-2024 ambulatory JOBY SOL Not Available Start: 07-01-2024 End: 07-01-2024 Office outpatient visit 25 minutes Silke Hitchcock NP Work Phone: [facility] Comment on above: TIANNA (obstructive sle ep apnea) (Primary Dx); Hypersomnia; Snoring; Fatigue, unspecified type Start: 07-01-2024 End: 07-01-2024 Telephone encounter Ekaterina Herrera CMA [facility] Start: 07-01-2024 End: 07-01-2024 ambulatory SILKE HITCHCOCK Not Available Start: 06-30-2024 End: 06-30-2024 ambulatory JOBY SOL Not Available Start: 06-30-2024 End: 06-30-2024 Patient encounter procedure Joby Sol DO Work Phone: [facility] Comment on above: TIANNA (obstructive sle ep apnea) (Primary Dx) Start: 06-24-2024 End: 06-24-2024 ambulatory [facility] Start: 06-24-2024 End: 06-24-2024 Office outpatient visit 15 minutes Mejia Saravia MD Work Phone: [facility] General Surgery Comment on above: Epidermoid cyst of s kin of chest (Primary Dx) Start: 06-24-2024 End: 06-24-2024 ambulatory [facility] Start: 06-23-2024 End: 06-23-2024 ambulatory [facility] Work Phone: Start: 06-23-2024 End: 06-23-2024 Patient encounter procedure [facility] Physician [facility] [place] Work Phone: Start: 06-20-2024 Non-patient / Non-visit [facility] Physician [facility] Work Phone: Start: 05-21-2024 End: 05-21-2024 ambulatory [facility] Work Phone: Start: 05-21-2024 End: 05-21-2024 Encounter for general adult medical examination without abnormal findings [facility] Start: 05-21-2024 End: 05-21-2024 Patient encounter procedure [facility] Physician [facility] Work Phone: Start: 05-16-2024 End: 08-12-2024 Telephone encounter Erna Sullivan [facility] General Surgery Start: 05-13-2024 End: 05-13-2024 Office outpatient new 30 minutes Mejia Saravia MD Work Phone: [facility] General Surgery Comment on above: Infected epidermoid cyst (Primary Dx) Start: 05-13-2024 End: 05-13-2024 ambulatory [facility] Ro SARAVIA [facility] Start: 05-08-2024 End: 05-26-2024 Telephone encounter Wanda Rodriguez PA-C Work Phone: [facility] Comment on above: Future Appointment Start: 05-08-2024 End: 05-08-2024 ambulatory JOBY MAYS Facility:[facility] Start: 05-08-2024 End: 05-08-2024 Office outpatient visit 25 minutes Wanda Rodriguez PA-C Work Phone: Hematology/Oncology Comment on above: Waldenstrom macroglo bulinemia (HCC) (Primary Dx); Type 2 diabetes mellitus with diabetic polyneuropathy, without long-term current use of insulin (HCC); Paraneoplastic neuropathy (HCC) Start: 04-17-2024 Non-patient / Non-visit [facility] Work Phone: Start: 04-17-2024 End: 04-17-2024 ambulatory JOBY MAYS Facility:[facility] Start: 03-18-2024 End: 03-18-2024 ambulatory JOBY Leoncio JC Not Available Start: 02-13-2024 End: 02-13-2024 ambulatory SILKE HITCHCOCK Not Available Start: 01-31-2024 End: 01-31-2024 Telephone encounter Ekaterina Herrera CMA [facility] General Surgery Start: 01-30-2024 End: 01-30-2024 Orders Only Lazara Palacios DO Work Phone: [facility] General Surgery Start: 01-29-2024 End: 01-29-2024 Evaluation and management of inpatient TRINO ISSA [facility] Start: 01-28-2024 End: 01-29-2024 Evaluation and management of inpatient LAZARA PALACIOS [facility] Start: 01-22-2024 End: 01-22-2024 ambulatory [facility] Pat Phone Call Provider 1 [facility] - Pre Admit Start: 01-22-2024 Telephone encounter [facility] Comment on above: [id number] (P[place] Med [place]/); Initial Consult Start: 01-22-2024 End: 01-22-2024 ambulatory JOBY MAYS [facility] Start: 01-17-2024 End: 01-17-2024 Office outpatient visit 15 minutes Joon Piper MD Work Phone: Hematology/Oncology Comment on above: Waldenstrom macroglo bulinemia (HCC) (Primary Dx); Paraneoplastic neuropathy (HCC) Start: 01-17-2024 End: 01-17-2024 ambulatory JOBY Priay MAYS Facility:[facility] Start: 01-11-2024 Telephone encounter Alice Galo Hematology/Oncology Comment on above: Treatment Planning Start: 01-10-2024 End: 01-10-2024 ambulatory JOBY MAYS Facility:[facility] Start: 01-08-2024 End: 01-08-2024 Office outpatient new 30 minutes Olamide Dequan Velasquez RECORDS TECHNICIAN-[employer] Work Phone: [facility] General Surgery Comment on above: Encounter for colono scopy due to history of colonic polyp (Primary Dx); Gastroesophageal reflux disease, unspecified whether esophagitis present Start: 01-08-2024 End: 01-08-[address] [facility] Start: 12-18-2023 Orders Only Not In System Ref Prov [facility] General Surgery Start: 10-24-2023 End: 10-24-2023 ambulatory Joby Tabatha Other [employer] Other Start: 10-24-2023 Telephone encounter Joby SHARPE [facility] Start: 10-19-2023 Telephone encounter Medina Schrader RN H ematology/Oncology Start: 10-10-2023 End: 10-10-2023 ambulatory Josy Santana Other [employer] Other Start: 10-10-2023 Office outpatient vi sit 15 minutes Josy Santana [facility] Start: 08-27-2023 End: 08-27-2023 ambulatory Joby Mays Other [employer] Other Start: 08-27-2023 Telephone encounter Joby SHARPE [facility] Start: 08-02-2023 End: 08-02-2023 Office outpatient visit 15 minutes Joon Piper MD Work Phone: Hematology/Oncology Comment on above: Waldenstrom macroglo bulinemia (HCC) (Primary Dx); Paraneoplastic neuropathy (HCC) Start: 07-24-2023 Telephone encounter Joon conde MD Work Phone: Hematology/Oncology Comment on above: Disability Scott Start: 06-21-2023 End: 06-21-2023 ambulatory Joby Mays Other [employer] Other Start: 06-21-2023 Telephone encounter Joby SHARPE [facility] Start: 06-12-2023 End: 06-12-2023 ambulatory Joby Mays Other [employer] Other Start: 06-12-2023 Telephone encounter Joby SHARPE [facility] Start: 06-06-2023 End: 06-06-2023 ambulatory Joby Mays Other [employer] Other Start: 06-06-2023 Encounter for genera l adult medical examination without abnormal findings Joby Mays [facility] Start: 06-06-2023 Periodic preventive med est patient 40-64yrs Joby Mays [facility] Start: 05-29-2023 Refill Maame Villagran senthil [facility] Work Phone: [facility] Comment on above: Refill Request Disability Scott Start: 05-28-2023 End: 05-28-2023 Office outpatient visit 15 minutes Joon Piper MD Work Phone: Hematology/Oncology Comment on above: Waldenstrom macroglo bulinemia (HCC) (Primary Dx); Paraneoplastic neuropathy (HCC); Bilateral hip pain Start: 05-18-2023 End: 05-18-2023 ambulatory Joby Mays Other [employer] Other Start: 05-18-2023 Telephone encounter Joby SHARPE Abdirashid Mays [facility] Start: 05-09-2023 End: 05-09-2023 ambulatory Chair 7 Laron Work Phone: Hematology/Oncology Comment on above: Waldenstrom macroglo bulinemia (HCC) (Primary Dx) Start: 05-02-2023 End: 05-02-2023 ambulatory Chair 7 Laron Work Phone: Hematology/Oncology Comment on above: Waldenstrom macroglo bulinemia (HCC) (Primary Dx) Start: 04-30-2023 Telephone encounter Joon conde MD Work Phone: Hematology/Oncology Comment on above: AFLAC paperwork Start: 04-25-2023 End: 04-25-2023 Office outpatient visit 25 minutes Joon Piper MD Work Phone: Hematology/Oncology Comment on above: Waldenstrom macroglo bulinemia (HCC) (Primary Dx); Paraneoplastic neuropathy (HCC) Start: 04-23-2023 Telephone encounter Diana merino RN Work Phone: Hematology/Oncology Comment on above: Care Coordination (C 1D1 Post Treatment Call) Start: 04-20-2023 Telephone encounter Joon conde MD Work Phone: Hematology/Oncology Comment on above: Disability Scott Start: 04-18-2023 Telephone encounter Financial Navigator Brandon Work Phone: Hematology/Oncology Comment on above: Benefits Investigati on Start: 04-18-2023 End: 04-18-2023 ambulatory Zeynep Burton APRN.CNP Work Phone: Hematology/Oncology Comment on above: Waldenstrom macroglo bulinemia (HCC) (Primary Dx); Type 2 diabetes mellitus with diabetic polyneuropathy, without long-term current use of insulin (HCC); Other iron deficiency anemia Waldenstrom macroglo bulinemia (HCC) (Primary Dx) Start: 04-18-2023 End: 04-18-2023 Patient encounter procedure Zeynep Burton APRN.[employer] Work Phone: [facility] Start: 03-28-2023 Telephone encounter Joon conde MD Work Phone: Hematology/Oncology Comment on above: Disability Scott Start: 03-22-2023 ambulatory Diana berman RN Work Phone: Hematology/Oncology Comment on above: Non-Chemotherapy Alex atment (Rituximab) Start: 03-08-2023 Telephone encounter Kelly Galo Hematology/Oncology Comment on above: Appointment Start: 02-09-2023 End: 02-09-2023 Office outpatient visit 15 minutes Joon Piper MD Work Phone: Hematology/Oncology Comment on above: Waldenstrom macroglo bulinemia (HCC) (Primary Dx); Type 2 diabetes mellitus with diabetic polyneuropathy, without long-term current use of insulin (HCC) Start: 12-05-2022 End: 12-05-2022 ambulatory Joby Mays Other [employer] Other Start: 12-05-2022 Office outpatient vi sit 15 minutes Joby Mays [facility] Start: 11-10-2022 End: 11-10-2022 ambulatory Zeynep Burton APRN.[employer] Work Phone: Hematology/Oncology Comment on above: Waldenstrom macroglo bulinemia (HCC) (Primary Dx); Monoclonal gammopathy; Malignant lymphoma, lymphoplasmacytic (HCC); Other iron deficiency anemia; Type 2 diabetes mellitus with diabetic polyneuropathy, without long-term current use of insulin (HCC) Start: 11-10-2022 End: 11-10-2022 Patient encounter procedure Zeynep Burton APRN.[employer] Work Phone: [facility] Start: 09-28-2022 End: 09-29-[address] JOBY MAYS Facility: Start: 08-11-2022 End: 08-11-2022 ambulatory Joon Piper MD Work Phone: Hematology/Oncology Comment on above: Waldenstrom macroglo bulinemia (HCC) (Primary Dx); Type 2 diabetes mellitus with diabetic polyneuropathy, without long-term current use of insulin (HCC) Start: 08-11-2022 End: 08-11-2022 Patient encounter procedure Joon Piper MD Work Phone: [facility] Start: 06-29-2022 End: 06-30-[address] JOBY MAYS Facility:[facility] Start: 06-01-2022 Adult health examination Marcio Mays Other [employer] Other Start: 05-12-2022 End: 05-12-2022 ambulatory Joon Piper MD Work Phone: Hematology/Oncology Comment on above: Waldenstrom macroglo bulinemia (HCC) (Primary Dx) Start: 05-12-2022 End: 05-12-2022 Patient encounter procedure Joon Piper MD Work Phone: [facility] Start: 04-12-2022 Telephone encounter Veronica Issa RN Hematology/Oncology Comment on above: Fatigue; Appointment Start: 02-10-2022 End: 02-10-2022 ambulatory Zeynep Burton APRN.[employer] Work Phone: Hematology/Oncology Comment on above: Waldenstrom macroglo bulinemia (HCC) (Primary Dx); Malignant lymphoma, lymphoplasmacytic (HCC); Monoclonal gammopathy; Other iron deficiency anemia Start: 02-10-2022 End: 02-10-2022 Patient encounter procedure Zeynep Burton RECORDS TECHNICIAN.[employer] Work Phone: [facility] Start: 11-11-[address] JOBY MAYS Facili ty:[facility] Start: 08-05-2021 End: 08-05-2021 Subsequent hospital visit by physician Mri [facility] [place] (Lg Bore/1.5t) Radiology MRI Comment on above: 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 ek DO Work Phone: Start: 09-12-2024 Neurostimulation of cranial nerve Benjam in Ball DO Work Phone: Start: 09-12-2024 GLUCOSE POCT GLUCOMETERS Joby Fang [facility] ek DO Work Phone: Start: 08-20-2024 Blood count complete auto&auto difrntl wbc Joon Piper MD Work Phone: Start: 01-28-2024 Colonoscopy Wanda Rodriguez PA-C Work Phone: Start: 05-12-2022 Adult depression screening assessment Joon Piper MD Work Phone: Start: 11-14-2021 Adult depression screening assessment Zeynep Burton APRN.CNP Work Phone: Start: 08-05-2021 Mri abdomen w/o & w/contrast material Joon Piper MD Work Phone: Start: 05-23-2018 Level i surg pathology gross examination only Not In System Ref Prov Start: 05-23-2018 EGD / COLONOSCOPY Not In System Ref Prov Start: 04-23-2018 Anesthesia upper gi endoscopic px nos Aliza Gleason Start: 04-23-2018 Egd transoral biopsy single/multiple Aliza Gleason Start: 04-23-2018 Esophagogastroduodenoscopy us scope w/adj strxrs Aliza Gleason Start: 07-03-2017 POC GLUCOSE FINGERSTICK KEILA PRINCE Start: 07-03-2017 POCT GLUCOSE MAYRAL NIKI Start: 07-02-2017 DISCHARGE PATIENT KEILA PRINCE Start: 07-02-2017 POC GLUCOSE FINGERSTICK KUL PRINCE Start: 07-02-2017 POCT GLUCOSE MAYRAL PRINCE Start: 07-01-2017 POC GLUCOSE FINGERSTICK MAYRAL PRINCE Start: 07-01-2017 POCT GLUCOSE KUL PRINCE Start: 06-30-2017 POC GLUCOSE FINGERSTICK KUL PRINCE Start: 06-30-2017 POCT GLUCOSE MAYRAL PRINCE Start: 06-29-2017 POC GLUCOSE FINGERSTICK MAYRAL PRINCE Start: 06-29-2017 POCT GLUCOSE KUL PRINCE Start: 06-28-2017 POCT GLUCOSE MAYRAL PRINCE Start: 06-28-2017 POC GLUCOSE FINGERSTICK MAYRAL PRINCE Start: 06-28-2017 CBC WITH AUTO DIFFERENTIAL KEILA PRINCE Start: 06-28-2017 COMPREHENSIVE METABOLIC PANEL KEILA PRINCE Start: 06-28-2017 FULL CODE KEILA PRINCE Start: 06-28-2017 IP CONSULT TO HISTORY AND PHYSICAL KEILA MARTEL Start: 06-28-2017 PATIENT STATUS (DIRECT) KEILA PRINCE Start: 06-28-2017 Urinalysis KEILA PRINCE Start: 06-28-2017 URINE DRUG SCREEN KEILA PRINCE Start: 06-28-2017 POCT GLUCOSE KEILA PRINCE Start: 06-28-2017 POC GLUCOSE FINGERSTICK KEILA PRINCE Start: 06-28-2017 POCT GLUCOSE KEILA SIMONSPTA Start: 06-28-2017 POCT GLUCOSE KEILA SIMONSPTA Start: 06-28-2017 DIET CARB CONTROL KEILA PRINCE Start: 06-28-2017 PATIENT STATUS (DIRECT) KEILA PRINCE Start: 10-18-2016 General examination of patient Joby Mays Other Start: 10-18-2016 Screening for malignant neoplasm of prostate Joby Mays Other Start: 09-24-2015 Screening for malignant neoplasm of colon Joby Mays Other Plan of Treatment Date Care Activity Detail Author Start: 01-27-2034 Screening for malignant neoplasm of colon [facility] Start: 01-27-2029 Screening for malignant neoplasm of colon Colonoscopy [facility] Start: 06-06-2028 Pneumococcal vaccination [facility] Start: 06-06-2028 Pneumococcal Vaccine: 50+ (3 of 3 - PPSV23, PCV20 or PCV21) Pneumococcal Vaccine: 50+ (3 of 3 - PPSV23, PCV20 or PCV21) [facility] Start: 11-04-2026 PROSTATE CANCER SCREENING DISCUSSION PROSTATE CANCER SCREENING DISCUSSION [facility] Start: 11-04-2026 Prostate specific antigen measurement Prostate Cancer Screening Discussion [facility] Start: 06-24-2025 Adult BMI Screening Adult BMI Screening [facility] Start: 06-24-2025 Tobacco Screening Tobacco Screening [facility] Start: 05-13-2025 Adult BMI Screening Adult BMI Screening [facility] Start: 05-13-2025 Tobacco Screening Tobacco Screening [facility] Start: 01-27-2025 Adult BMI Screening Adult BMI Screening [facility] Start: 01-27-2025 Screening for malignant neoplasm of colon [facility] Start: 01-27-2025 Tobacco Screening Tobacco Screening [facility] Start: 01-21-2025 Adult BMI Screening Adult BMI Screening [facility] Start: 01-21-2025 Tobacco Screening Tobacco Screening [facility] Start: 01-12-2025 End: 01-12-2025 Patient encounter procedure 01/12/2025 1:15 PM EDT Off ice Visit GABRIELLE GAR [address] [place] [address] Evan Eugene, [address] [place] [address] GABRIELLE GAR Start: 01-07-2025 Adult BMI Screening Adult BMI Screening [facility] Start: 01-07-2025 Tobacco Screening Tobacco Screening [facility] Start: 01-07-2025 End: 01-07-2025 Follow-up encounter Hematology/Onc ology Comment on above: 8 week follow up with lab chemotx Rituxi n Start: 01-07-2025 End: 01-07-2025 Patient encounter procedure 01/07/2025 8:45 AM EDT Off ice Visit [facility] [address] [place] [address] [place] [address] 8 week follow up with lab chemotx Rituxin [facility] Comment on above: 8 week follow up with lab chemotx Rituxi n Start: 12-16-2024 End: 12-16-2024 Patient encounter procedure SARAH Powers [address] Start: 12-11-2024 End: 12-11-2024 Patient encounter procedure GABRIELLE BARBER Comment on above: Arrived Start: 12-10-2024 Covid-19 Vaccine () Covid-19 Vaccine () [facility] Start: 11-12-2024 End: 11-12-2024 Patient encounter procedure GABRIELLE BARBER Comment on above: Arrived Start: 11-12-2024 End: 11-12-2024 Follow-up encounter Hematology/Onc ology Comment on above: 8 week follow up with lab chemotx Rituxi n Start: 11-12-2024 End: 11-12-2024 Patient encounter procedure 11/12/2024 8:45 AM EST Off ice Visit [facility] [address] [place] [address] [place] [address] 8 week follow up with lab chemotx Rituxin [facility] Comment on above: 8 week follow up with lab chemotx Rituxi n Start: 11-05-2024 End: 02-04-2025 [id number]-2-[id number] [Mass/volume] in Serum or Plasma B2 MICROGLOBULIN Lab Routine Waldenstrom macroglobulinemia Expected: 11/05/2024, Expires: 02/04/2025 [facility] Comment on above: Expected: 11/05/2024, Expires: Start: 11-05-2024 End: 02-04-2025 CBC W Auto Differential panel - Blood COMPLETE BLOOD COUNT AND DIFFERENTIAL Lab Routine Waldenstrom macroglobulinemia Expected: 11/05/2024, Expires: 02/04/2025 [facility] Comment on above: Expected: 11/05/2024, Expires: Start: 11-05-2024 End: 02-04-2025 Comprehensive metabolic 2000 panel - Serum or Plasma COMPREHENSIVE METABOLIC PANEL Lab Routine Waldenstrom macroglobulinemia Expected: 11/05/2024, Expires: 02/04/2025 [facility] Work Phone: Comment on above: Expected: 11/05/2024, Expires: Start: 11-05-2024 End: 02-04-2025 MONOCLONAL PROTEIN, SERUM (BLOOD) MONOCLONAL PROTEIN, SERUM (BLOOD) Lab Routine Waldenstrom macroglobulinemia Expected: 11/05/2024, Expires: 02/04/2025 [facility] Comment on above: Expected: 11/05/2024, Expires: Start: 11-05-2024 End: 02-04-2025 PROTEIN ELECTROPHORESIS SERUM W/INTERP PROTEIN ELECTROPHORESIS SERUM W/INTERP Lab Routine Waldenstrom macroglobulinemia Expected: 11/05/2024, Expires: 02/04/2025 [facility] Comment on above: Expected: 11/05/2024, Expires: Start: 11-05-2024 End: 02-04-2025 Urate [Mass/volume] in Serum or Plasma URIC ACID Lab Routine Waldenstrom macroglobulinemia Expected: 11/05/2024, Expires: 02/04/2025 [facility] Comment on above: Expected: 11/05/2024, Expires: Start: 10-29-2024 End: 10-29-2024 Patient encounter procedure SARAH [place] Comment on above: Arrived Start: 09-22-2024 End: 09-22-2024 Patient encounter procedure SARAH [place] Comment on above: Arrived Start: 09-17-2024 End: 09-17-2024 Follow-up encounter Hematology/Onc ology Comment on above: 1 week follow up with lab chemotx Rituxi n Start: 09-17-2024 End: 09-17-2024 Patient encounter procedure 09/17/2024 8:45 AM EST Off ice Visit [facility] [address] [place] [address] [place] [address] 1 week follow up with lab chemotx Rituxin [facility] Comment on above: 1 week follow up with lab chemotx Rituxi n Start: 09-12-2024 [facility] Start: 09-12-2024 [facility] Start: 09-10-2024 End: 12-10-2024 CBC W Auto Differential panel - Blood COMPLETE BLOOD COUNT AND DIFFERENTIAL Lab Routine Waldenstrom macroglobulinemia Expected: 09/10/2024, Expires: 12/10/2024 [facility] Comment on above: Expected: 09/10/2024, Expires: Start: 09-10-2024 End: 12-10-2024 Comprehensive metabolic 2000 panel - Serum or Plasma COMPREHENSIVE METABOLIC PANEL Lab Routine Waldenstrom macroglobulinemia Expected: 09/10/2024, Expires: 12/10/2024 [facility] Work Phone: Comment on above: Expected: 09/10/2024, Expires: Start: 09-10-2024 End: 09-10-2024 ambulatory 09/10/2024 9:00 AM [facility] Hematology/Oncology [address] [place] [address] Laron, Chair [address] [place] [address] Rituxan x4 Hematology/Onc ology Comment on above: Rituxan x4 Start: 09-10-2024 End: 09-10-2024 Follow-up encounter Hematology/Onc ology Comment on above: 2 week follow up with lab chemotx Rituxi n Start: 09-10-2024 End: 09-10-2024 Patient encounter procedure [facility] Comment on above: 2 week follow up with lab chemotx Rituxi n Start: 09-03-2024 End: 09-03-2024 ambulatory 09/03/2024 9:00 AM [facility] Hematology/Oncology [address] [place] [address] Laron, Chair [address] [place], [place] [id number] Rituxan x4 Hematology/Onc ology Comment on above: Rituxan x4 Start: 08-27-2024 End: 08-27-2024 ambulatory Hematology/Onc ology Comment on above: Return visit Rituxan x4 Return visit (labs 1 week prior) Start: 08-27-2024 End: 08-27-2024 Patient encounter procedure 08/27/2024 9:15 AM EST Off ice Visit [facility] [address] [place] [address] lab [facility] Comment on above: lab Start: 08-20-2024 End: 08-20-2024 ambulatory 08/20/2024 9:00 AM [facility] Hematology/Oncology [address] [place] [address] Laron, Chair [address] [place] [address] Rituxan x4 Hematology/Onc ology Comment on above: Rituxan x4 Start: 08-14-2024 End: 07-31-2025 Kbvm-3-Gpvizvhwzofaf [Mass/volume] in Serum or Plasma B2 MICROGLOBULIN Lab Routine Malignant lymphoma, lymphoplasmacytic (HCC) Expected: 08/14/2024 (Approximate), Expires: 07/31/2025 [facility] Comment on above: Expected: 08/14/2024 (Approximate), Expi res: 07/31/2025 Start: 08-14-2024 End: 07-31-2025 Calcium.ionized [Moles/volume] in Blood CALCIUM, IONIZED Lab Routine Malignant lymphoma, lymphoplasmacytic (HCC) Expected: 08/14/2024 (Approximate), Expires: 07/31/2025 [facility] Comment on above: Expected: 08/14/2024 (Approximate), Expi res: 07/31/2025 Start: 08-14-2024 End: 07-31-2025 CBC W Auto Differential panel - Blood COMPLETE BLOOD COUNT AND DIFFERENTIAL Lab Routine Malignant lymphoma, lymphoplasmacytic (HCC) Expected: 08/14/2024 (Approximate), Expires: 07/31/2025 [facility] Comment on above: Expected: 08/14/2024 (Approximate), Expi res: 07/31/2025 Start: 08-14-2024 End: 11-13-2024 Chronic hepatitis differentiation between hepatitis B and C virus panel - Serum or Plasma HEP REMOTE PANEL BL Lab Routine Malignant lymphoma, lymphoplasmacytic (HCC) Expected: 08/14/2024 (Approximate), Expires: 11/13/2024 [facility] Comment on above: Expected: 08/14/2024 (Approximate), Expi res: 11/13/2024 Start: 08-14-2024 End: 11-13-2024 Cobalamin (Vitamin B12) [Mass/volume] in Serum or Plasma VITAMIN B12 Lab Routine Malaise and fatigue Malignant lymphoma, lymphoplasmacytic (HCC) Expected: 08/14/2024 (Approximate), Expires: 11/13/2024 [facility] Comment on above: Expected: 08/14/2024 (Approximate), Expi res: 11/13/2024 Start: 08-14-2024 End: 07-31-2025 Comprehensive metabolic 2000 panel - Serum or Plasma COMPREHENSIVE METABOLIC PANEL Lab Routine Malignant lymphoma, lymphoplasmacytic (HCC) Expected: 08/14/2024 (Approximate), Expires: 07/31/2025 [facility] Comment on above: Expected: 08/14/2024 (Approximate), Expi res: 07/31/2025 Start: 08-14-2024 End: 11-13-2024 KAPPA/KING,FREE,SER KAPPA/KING,FREE,SER Lab Routine Malignant lymphoma, lymphoplasmacytic (HCC) Expected: 08/14/2024 (Approximate), Expires: 11/13/2024 [facility] Comment on above: Expected: 08/14/2024 (Approximate), Expi res: 11/13/2024 Start: 08-14-2024 End: 07-31-2025 Lactate dehydrogenase [Enzymatic activity/volume] in Serum or Plasma LACTATE DEHYDROGENASE Lab Routine Malignant lymphoma, lymphoplasmacytic (HCC) Expected: 08/14/2024 (Approximate), Expires: 07/31/2025 [facility] Comment on above: Expected: 08/14/2024 (Approximate), Expi res: 07/31/2025 Start: 08-14-2024 End: 07-31-2025 MONOCLONAL PROTEIN, SERUM (BLOOD) MONOCLONAL PROTEIN, SERUM (BLOOD) Lab Routine Malignant lymphoma, lymphoplasmacytic (HCC) Expected: 08/14/2024 (Approximate), Expires: 07/31/2025 [facility] Comment on above: Expected: 08/14/2024 (Approximate), Expi res: 07/31/2025 Start: 08-14-2024 End: 07-31-2025 Phosphate [Mass/volume] in Serum or Plasma PHOSPHORUS INORGANIC Lab Routine Malignant lymphoma, lymphoplasmacytic (HCC) Expected: 08/14/2024 (Approximate), Expires: 07/31/2025 [facility] Comment on above: Expected: 08/14/2024 (Approximate), Expi res: 07/31/2025 Start: 08-14-2024 End: 07-31-2025 PROTEIN ELECTROPHORESIS SERUM W/INTERP PROTEIN ELECTROPHORESIS SERUM W/INTERP Lab Routine Malignant lymphoma, lymphoplasmacytic (HCC) Expected: 08/14/2024 (Approximate), Expires: 07/31/2025 [facility] Comment on above: Expected: 08/14/2024 (Approximate), Expi res: 07/31/2025 Start: 08-14-2024 End: 11-13-2024 SERUM VISCOSITY SERUM VISCOSITY Lab Routine Malignant lymphoma, lymphoplasmacytic (HCC) Expected: 08/14/2024 (Approximate), Expires: 11/13/2024 [facility] Comment on above: Expected: 08/14/2024 (Approximate), Expi res: 11/13/2024 Start: 08-14-2024 End: 11-13-2024 TESTOSTERONE, FREE AND TOTAL, BY EQUILIBRIUM ULTRAFILTRATION MASS SPECTROMETRY TESTOSTERONE, FREE AND TOTAL, BY EQUILIBRIUM ULTRAFILTRATION MASS SPECTROMETRY Lab Routine Waldenstrom macroglobulinemia Paraneoplastic neuropathy (HCC) Malaise and fatigue Malignant lymphoma, lymphoplasmacytic (HCC) Expected: 08/14/2024 (Approximate), Expires: 11/13/2024 [facility] Work Phone: Comment on above: Expected: 08/14/2024 (Approximate), Expi res: 11/13/2024 Start: 08-14-2024 End: 11-13-2024 Thyrotropin [Units/volume] in Serum or Plasma THYROID STIMULATING HORMONE Lab Routine Malignant lymphoma, lymphoplasmacytic (HCC) Expected: 08/14/2024 (Approximate), Expires: 11/13/2024 [facility] Comment on above: Expected: 08/14/2024 (Approximate), Expi res: 11/13/2024 Start: 08-14-2024 End: 07-31-2025 Urate [Mass/volume] in Serum or Plasma URIC ACID Lab Routine Malignant lymphoma, lymphoplasmacytic (HCC) Expected: 08/14/2024 (Approximate), Expires: 07/31/2025 [facility] Comment on above: Expected: 08/14/2024 (Approximate), Expi res: 07/31/2025 Start: 08-13-2024 End: 08-13-2024 Patient encounter procedure 08/13/2024 11:00 AM EST Of fice Visit [facility] [address] [place] [address] labs [facility] Comment on above: labs Start: 08-07-2024 Covid-19 Vaccine () Covid-19 Vaccine () [facility] Start: 07-31-2024 End: 07-31-2024 Follow-up encounter 07/31/2024 11:00 AM EDT Rhona ruiz (SP) Office Hematology/Oncology [address] [place] [address] Joon Piper MD [address] [place] [address] 12 week follow up Hematology/Onc ology Comment on above: 12 week follow up Start: 07-24-2024 End: 10-23-2024 [id number] [Mass/volume] in Serum or Plasma B2 MICROGLOBULIN Lab Routine Waldenstrom macroglobulinemia (HCC) Type 2 diabetes mellitus with diabetic polyneuropathy, without long-term current use of insulin (HCC) Paraneoplastic neuropathy (HCC) Expected: 07/24/2024 (Approximate), Expires: 10/23/2024 [facility] Comment on above: Expected: 07/24/2024 (Approximate), Expi res: 10/23/2024 Start: 07-24-2024 End: 10-23-2024 Calcium.ionized [Moles/volume] in Blood CALCIUM, IONIZED Lab Routine Waldenstrom macroglobulinemia (HCC) Type 2 diabetes mellitus with diabetic polyneuropathy, without long-term current use of insulin (HCC) Paraneoplastic neuropathy (HCC) Expected: 07/24/2024 (Approximate), Expires: 10/23/2024 [facility] Comment on above: Expected: 07/24/2024 (Approximate), Expi res: 10/23/2024 Start: 07-24-2024 End: 10-23-2024 CBC W Auto Differential panel - Blood COMPLETE BLOOD COUNT AND DIFFERENTIAL Lab Routine Waldenstrom macroglobulinemia (HCC) Type 2 diabetes mellitus with diabetic polyneuropathy, without long-term current use of insulin (HCC) Paraneoplastic neuropathy (HCC) Expected: 07/24/2024 (Approximate), Expires: 10/23/2024 [facility] Comment on above: Expected: 07/24/2024 (Approximate), Expi res: 10/23/2024 Start: 07-24-2024 End: 10-23-2024 Comprehensive metabolic 2000 panel - Serum or Plasma COMPREHENSIVE METABOLIC PANEL Lab Routine Waldenstrom macroglobulinemia (HCC) Type 2 diabetes mellitus with diabetic polyneuropathy, without long-term current use of insulin (HCC) Paraneoplastic neuropathy (HCC) Expected: 07/24/2024 (Approximate), Expires: 10/23/2024 [facility] Work Phone: Comment on above: Expected: 07/24/2024 (Approximate), Expi res: 10/23/2024 Start: 07-24-2024 End: 10-23-2024 IMMUNOGLOBULINS,IGG,IGA,IGM IMMUNOGLOBULINS,IGG,IGA,IG M Lab Routine Waldenstrom macroglobulinemia (HCC) Type 2 diabetes mellitus with diabetic polyneuropathy, without long-term current use of insulin (HCC) Paraneoplastic neuropathy (HCC) Expected: 07/24/2024 (Approximate), Expires: 10/23/2024 [facility] Comment on above: Expected: 07/24/2024 (Approximate), Expi res: 10/23/2024 Start: 07-24-2024 End: 10-23-2024 Lactate dehydrogenase [Enzymatic activity/volume] in Serum or Plasma LACTATE DEHYDROGENASE Lab Routine Waldenstrom macroglobulinemia (HCC) Type 2 diabetes mellitus with diabetic polyneuropathy, without long-term current use of insulin (HCC) Paraneoplastic neuropathy (HCC) Expected: 07/24/2024 (Approximate), Expires: 10/23/2024 [facility] Comment on above: Expected: 07/24/2024 (Approximate), Expi res: 10/23/2024 Start: 07-24-2024 End: 10-23-2024 MONOCLONAL PROTEIN, SERUM (BLOOD) MONOCLONAL PROTEIN, SERUM (BLOOD) Lab Routine Waldenstrom macroglobulinemia (HCC) Type 2 diabetes mellitus with diabetic polyneuropathy, without long-term current use of insulin (HCC) Paraneoplastic neuropathy (HCC) Expected: 07/24/2024 (Approximate), Expires: 10/23/2024 [facility] Comment on above: Expected: 07/24/2024 (Approximate), Expi res: 10/23/2024 Start: 07-24-2024 End: 10-23-2024 Phosphate [Mass/volume] in Serum or Plasma PHOSPHORUS INORGANIC Lab Routine Waldenstrom macroglobulinemia (HCC) Type 2 diabetes mellitus with diabetic polyneuropathy, without long-term current use of insulin (HCC) Paraneoplastic neuropathy (HCC) Expected: 07/24/2024 (Approximate), Expires: 10/23/2024 [facility] Comment on above: Expected: 07/24/2024 (Approximate), Expi res: 10/23/2024 Start: 07-24-2024 End: 10-23-2024 PROTEIN ELECTROPHORESIS SERUM W/INTERP PROTEIN ELECTROPHORESIS SERUM W/INTERP Lab Routine Waldenstrom macroglobulinemia (HCC) Type 2 diabetes mellitus with diabetic polyneuropathy, without long-term current use of insulin (HCC) Paraneoplastic neuropathy (HCC) Expected: 07/24/2024 (Approximate), Expires: 10/23/2024 [facility] Comment on above: Expected: 07/24/2024 (Approximate), Expi res: 10/23/2024 Start: 07-24-2024 End: 10-23-2024 SERUM VISCOSITY SERUM VISCOSITY Lab Routine Waldenstrom macroglobulinemia (HCC) Type 2 diabetes mellitus with diabetic polyneuropathy, without long-term current use of insulin (HCC) Paraneoplastic neuropathy (HCC) Expected: 07/24/2024 (Approximate), Expires: 10/23/2024 [facility] Comment on above: Expected: 07/24/2024 (Approximate), Expi res: 10/23/2024 Start: 07-24-2024 End: 07-24-2024 Patient encounter procedure 07/24/2024 11:30 AM EDT Of fice Visit [facility] [address] [place] [address] 11 week lab [facility] Comment on above: 11 week lab Start: 07-14-2024 End: 07-14-2024 Patient encounter procedure [facility] Comment on above: Arrived Start: 07-01-2024 End: 07-01-2024 Patient encounter procedure 07/01/2024 2:00 PM EDT Off ice Visit [facility] [address] [place] [id number] Silke Hitchcock NP [address] [place], [place] [facility] [address] [address] Start: 06-24-2024 End: 06-24-2024 Patient encounter procedure 06/24/2024 10:00 AM EDT Of fice Visit [facility] General Surgery [address] [place] [id number] Mejia Saravia MD [address] [facility] [place] [address] [facility] Start: 06-08-2024 COVID-19 Vaccine ( season) COVID-19 Vaccine () [facility] Start: 06-08-2024 Influenza vaccination [facility] Start: 04-03-2024 End: 01-16-2025 [id number] [Mass/volume] in Serum or Plasma B2 MICROGLOBULIN Lab Routine Waldenstrom macroglobulinemia (HCC) Paraneoplastic neuropathy (HCC) Expected: 04/03/2024 (Approximate), Expires: 01/16/2025 [facility] Work Phone: Comment on above: Expected: 04/03/2024 (Approximate), Expi res: 01/16/2025 Start: 04-03-2024 End: 01-16-2025 Calcium.ionized [Moles/volume] in Blood CALCIUM, IONIZED Lab Routine Waldenstrom macroglobulinemia (HCC) Paraneoplastic neuropathy (HCC) Expected: 04/03/2024 (Approximate), Expires: 01/16/2025 [facility] Work Phone: Comment on above: Expected: 04/03/2024 (Approximate), Expi res: 01/16/2025 Start: 04-03-2024 End: 01-16-2025 CBC W Auto Differential panel - Blood COMPLETE BLOOD COUNT AND DIFFERENTIAL Lab Routine Waldenstrom macroglobulinemia (HCC) Paraneoplastic neuropathy (HCC) Expected: 04/03/2024 (Approximate), Expires: 01/16/2025 [facility] Work Phone: Comment on above: Expected: 04/03/2024 (Approximate), Expi res: 01/16/2025 Start: 04-03-2024 End: 01-16-2025 Comprehensive metabolic 2000 panel - Serum or Plasma COMPREHENSIVE METABOLIC PANEL Lab Routine Waldenstrom macroglobulinemia (HCC) Paraneoplastic neuropathy (HCC) Expected: 04/03/2024 (Approximate), Expires: 01/16/2025 [facility] Work Phone: Comment on above: Expected: 04/03/2024 (Approximate), Expi res: 01/16/2025 Start: 04-03-2024 End: 07-03-2024 KAPPA/KING,FREE,SER KAPPA/KING,FREE,SER Lab Routine Waldenstrom macroglobulinemia (HCC) Paraneoplastic neuropathy (HCC) Expected: 04/03/2024 (Approximate), Expires: 07/03/2024 [facility] Work Phone: Comment on above: Expected: 04/03/2024 (Approximate), Expi res: 07/03/2024 Start: 04-03-2024 End: 01-16-2025 Lactate dehydrogenase [Enzymatic activity/volume] in Serum or Plasma LACTATE DEHYDROGENASE Lab Routine Waldenstrom macroglobulinemia (HCC) Paraneoplastic neuropathy (HCC) Expected: 04/03/2024 (Approximate), Expires: 01/16/2025 [facility] Work Phone: Comment on above: Expected: 04/03/2024 (Approximate), Expi res: 01/16/2025 Start: 04-03-2024 End: 01-16-2025 MONOCLONAL PROTEIN, SERUM (BLOOD) MONOCLONAL PROTEIN, SERUM (BLOOD) Lab Routine Waldenstrom macroglobulinemia (HCC) Paraneoplastic neuropathy (HCC) Expected: 04/03/2024 (Approximate), Expires: 01/16/2025 [facility] Work Phone: Comment on above: Expected: 04/03/2024 (Approximate), Expi res: 01/16/2025 Start: 04-03-2024 End: 01-16-2025 Phosphate [Mass/volume] in Serum or Plasma PHOSPHORUS INORGANIC Lab Routine Waldenstrom macroglobulinemia (HCC) Paraneoplastic neuropathy (HCC) Expected: 04/03/2024 (Approximate), Expires: 01/16/2025 [facility] Work Phone: Comment on above: Expected: 04/03/2024 (Approximate), Expi res: 01/16/2025 Start: 04-03-2024 End: 01-16-2025 PROTEIN ELECTROPHORESIS SERUM W/INTERP PROTEIN ELECTROPHORESIS SERUM W/INTERP Lab Routine Waldenstrom macroglobulinemia (HCC) Paraneoplastic neuropathy (HCC) Expected: 04/03/2024 (Approximate), Expires: 01/16/2025 [facility] Work Phone: Comment on above: Expected: 04/03/2024 (Approximate), Expi res: 01/16/2025 Start: 04-03-2024 End: 07-03-2024 SERUM VISCOSITY SERUM VISCOSITY Lab Routine Waldenstrom macroglobulinemia (HCC) Paraneoplastic neuropathy (HCC) Expected: 04/03/2024 (Approximate), Expires: 07/03/2024 [facility] Work Phone: Comment on above: Expected: 04/03/2024 (Approximate), Expi res: 07/03/2024 Start: 04-03-2024 End: 01-16-2025 Urate [Mass/volume] in Serum or Plasma URIC ACID Lab Routine Waldenstrom macroglobulinemia (HCC) Paraneoplastic neuropathy (HCC) Expected: 04/03/2024 (Approximate), Expires: 01/16/2025 [facility] Work Phone: Comment on above: Expected: 04/03/2024 (Approximate), Expi res: 01/16/2025 Start: 2024 RSV Vaccine (1 - 1-dose 60+ series) RSV Vaccine (1 - 1-dose 60+ series) [facility] Start: 01-28-2024 End: 01-28-2024 Admission to same day surgery center 01/28/2024 10:45 AM EDT - 01/28/2024 11:30 AM EDT Surgery [facility] [address] [place] [address] Lazara Palacios, DO [address], [place] [id number] ESOPHAGOGASTRODUODENOSCOPY DIAGNOSTIC [00739 (CPT )] [facility] Comment on above: ESOPHAGOGASTRODUODENOSCOPY DIAGNOSTIC [4 3235 (CPT )] Start: 01-28-2024 End: 01-28-2024 Colonoscopy flx dx w/collj spec when pfrmd COLONOSCOPY DIAGNOSTIC / SCREENING History of colon polyps 01/28/2024 10:45 AM EDT [facility] Start: 01-28-2024 End: 01-28-2024 Esophagogastroduodenoscopy transoral diagnostic ESOPHAGOGASTRODUODENOSCOPY DIAGNOSTIC History of colon polyps 01/28/2024 10:45 AM EDT [facility] Start: 01-28-2024 Subsequent hospital visit by physician 01/28/2024 10:45 AM EDT Hospital Encounter [facility] [address] [place] [address] Lazara Palacios, [address], [place] [phone] [facility] Start: 01-22-2024 End: 01-22-2024 ambulatory 01/22/2024 2:30 PM EDT Suppo rt Visit [facility] - Pre Admit [address] [place] [phone] [facility] - Pre Admit Start: 01-08-2024 End: 01-08-2024 Patient encounter procedure 01/08/2024 9:30 AM EDT Off ice Visit [facility] General Surgery [address] [place] [address] Olamide Velasquez, [employer] TECH[employer]IC[employer] [address] [place] [address] [facility] General Surgery Start: 12-21-2023 Covid-19 Vaccine () Covid-19 Vaccine () [facility] Start: 10-18-2023 End: 08-02-2024 [id number] [Mass/volume] in Serum or Plasma B2 MICROGLOBULIN B Lab Routine Waldenstrom macroglobulinemia (HCC) Paraneoplastic neuropathy (HCC) Expected: 10/18/2023, Expires: 08/02/2024 [facility] Work Phone: Comment on above: Expected: 10/18/2023, Expires: Start: 10-18-2023 End: 08-02-2024 Calcium.ionized [Moles/volume] in Blood CALCIUM IONIZED BLOOD Lab Routine Waldenstrom macroglobulinemia (HCC) Paraneoplastic neuropathy (HCC) Expected: 10/18/2023, Expires: 08/02/2024 [facility] Work Phone: Comment on above: Expected: 10/18/2023, Expires: Start: 10-18-2023 End: 08-02-2024 CBC W Auto Differential panel - Blood CBC + DIFF Lab Routine Waldenstrom macroglobulinemia (HCC) Paraneoplastic neuropathy (HCC) Expected: 10/18/2023, Expires: 08/02/2024 [facility] Work Phone: Comment on above: Expected: 10/18/2023, Expires: Start: 10-18-2023 End: 08-02-2024 Comprehensive metabolic 2000 panel - Serum or Plasma COMP METABOLIC PANEL Lab Routine Waldenstrom macroglobulinemia (HCC) Paraneoplastic neuropathy (HCC) Expected: 10/18/2023, Expires: 08/02/2024 [facility] Work Phone: Comment on above: Expected: 10/18/2023, Expires: Start: 10-18-2023 End: 01-17-2024 KAPPA/KING,FREE,SER KAPPA/KING,FREE,SER Lab Routine Waldenstrom macroglobulinemia (HCC) Paraneoplastic neuropathy (HCC) Expected: 10/18/2023, Expires: 01/17/2024 [facility] Work Phone: Comment on above: Expected: 10/18/2023, Expires: 4 Start: 10-18-2023 End: 08-02-2024 Lactate dehydrogenase [Enzymatic activity/volume] in Serum or Plasma LD LACTATE DEHYDRO Lab Routine Waldenstrom macroglobulinemia (HCC) Paraneoplastic neuropathy (HCC) Expected: 10/18/2023, Expires: 08/02/2024 [facility] Work Phone: Comment on above: Expected: 10/18/2023, Expires: 4 Start: 10-18-2023 End: 08-02-2024 MONOCLONAL PROTEIN, SERUM (BLOOD) MONOCLONAL PROTEIN, SERUM (BLOOD) Lab Routine Waldenstrom macroglobulinemia (HCC) Paraneoplastic neuropathy (HCC) Expected: 10/18/2023, Expires: 08/02/2024 [facility] Work Phone: Comment on above: Expected: 10/18/2023, Expires: 4 Start: 10-18-2023 End: 08-02-2024 Phosphate [Mass/volume] in Serum or Plasma PHOSPHORUS INORGANIC Lab Routine Waldenstrom macroglobulinemia (HCC) Paraneoplastic neuropathy (HCC) Expected: 10/18/2023, Expires: 08/02/2024 [facility] Work Phone: Comment on above: Expected: 10/18/2023, Expires: 4 Start: 10-18-2023 End: 08-02-2024 PROTEIN ELECTROPHORESIS SERUM W/INTERP PROTEIN ELECTROPHORESIS SERUM W/INTERP Lab Routine Waldenstrom macroglobulinemia (HCC) Paraneoplastic neuropathy (HCC) Expected: 10/18/2023, Expires: 08/02/2024 [facility] Work Phone: Comment on above: Expected: 10/18/2023, Expires: 4 Start: 10-18-2023 End: 01-17-2024 SERUM VISCOSITY SERUM VISCOSITY Lab Routine Waldenstrom macroglobulinemia (HCC) Paraneoplastic neuropathy (HCC) Expected: 10/18/2023, Expires: 01/17/2024 [facility] Work Phone: Comment on above: Expected: 10/18/2023, Expires: Start: 10-18-2023 End: 08-02-2024 Urate [Mass/volume] in Serum or Plasma URIC ACID BLOOD Lab Routine Waldenstrom macroglobulinemia (HCC) Paraneoplastic neuropathy (HCC) Expected: 10/18/2023, Expires: 08/02/2024 [facility] Work Phone: Comment on above: Expected: 10/18/2023, Expires: 4 Start: 10-08-2023 Behavioral Health Screening Behavioral Health Screening [facility] Start: 10-08-2023 Depression Assessment Depression Assessment [facility] Start: 08-22-2023 Shingrix Vaccine (2 of 2) [facility]ingrix [facility] ([facility] of 2) [facility] Start: 08-13-2023 End: 05-28-2024 [id number] [Mass/volume] in Serum or Plasma B2 MICROGLOBULIN B Lab Routine Waldenstrom macroglobulinemia (HCC) Paraneoplastic neuropathy (HCC) Expected: 08/13/2023 (Approximate), Expires: 05/28/2024 [facility] Work Phone: Comment on above: Expected: 08/13/2023 (Approximate), Expi res: 05/28/2024 Start: 08-13-2023 End: 05-28-2024 Calcium.ionized [Moles/volume] in Blood CALCIUM IONIZED BLOOD Lab Routine Waldenstrom macroglobulinemia (HCC) Paraneoplastic neuropathy (HCC) Expected: 08/13/2023 (Approximate), Expires: 05/28/2024 [facility] Work Phone: Comment on above: Expected: 08/13/2023 (Approximate), Expi res: 05/28/2024 Start: 08-13-2023 End: 05-28-2024 CBC W Auto Differential panel - Blood CBC + DIFF Lab Routine Waldenstrom macroglobulinemia (HCC) Paraneoplastic neuropathy (HCC) Expected: 08/13/2023 (Approximate), Expires: 05/28/2024 [facility] Work Phone: Comment on above: Expected: 08/13/2023 (Approximate), Expi res: 05/28/2024 Start: 08-13-2023 End: 05-28-2024 Comprehensive metabolic 2000 panel - Serum or Plasma COMP METABOLIC PANEL Lab Routine Waldenstrom macroglobulinemia (HCC) Paraneoplastic neuropathy (HCC) Expected: 08/13/2023 (Approximate), Expires: 05/28/2024 [facility] Work Phone: Comment on above: Expected: 08/13/2023 (Approximate), Expi res: 05/28/2024 Start: 08-13-2023 End: 10-13-2023 KAPPA/KING,FREE,SER KAPPA/KING,FREE,SER Lab Routine Waldenstrom macroglobulinemia (HCC) Paraneoplastic neuropathy (HCC) Expected: 08/13/2023 (Approximate), Expires: 10/13/2023 [facility] Work Phone: Comment on above: Expected: 08/13/2023 (Approximate), Expi res: 10/13/2023 Start: 08-13-2023 End: 05-28-2024 Lactate dehydrogenase [Enzymatic activity/volume] in Serum or Plasma LD LACTATE DEHYDRO Lab Routine Waldenstrom macroglobulinemia (HCC) Paraneoplastic neuropathy (HCC) Expected: 08/13/2023 (Approximate), Expires: 05/28/2024 [facility] Work Phone: Comment on above: Expected: 08/13/2023 (Approximate), Expi res: 05/28/2024 Start: 08-13-2023 End: 05-28-2024 MONOCLONAL PROTEIN, SERUM (BLOOD) MONOCLONAL PROTEIN, SERUM (BLOOD) Lab Routine Waldenstrom macroglobulinemia (HCC) Paraneoplastic neuropathy (HCC) Expected: 08/13/2023 (Approximate), Expires: 05/28/2024 [facility] Work Phone: Comment on above: Expected: 08/13/2023 (Approximate), Expi res: 05/28/2024 Start: 08-13-2023 End: 05-28-2024 Phosphate [Mass/volume] in Serum or Plasma PHOSPHORUS INORGANIC Lab Routine Waldenstrom macroglobulinemia (HCC) Paraneoplastic neuropathy (HCC) Expected: 08/13/2023 (Approximate), Expires: 05/28/2024 [facility] Work Phone: Comment on above: Expected: 08/13/2023 (Approximate), Expi res: 05/28/2024 Start: 08-13-2023 End: 05-28-2024 PROTEIN ELECTROPHORESIS SERUM W/INTERP PROTEIN ELECTROPHORESIS SERUM W/INTERP Lab Routine Waldenstrom macroglobulinemia (HCC) Paraneoplastic neuropathy (HCC) Expected: 08/13/2023 (Approximate), Expires: 05/28/2024 [facility] Work Phone: Comment on above: Expected: 08/13/2023 (Approximate), Expi res: 05/28/2024 Start: 08-13-2023 End: 10-13-2023 SERUM VISCOSITY SERUM VISCOSITY Lab Routine Waldenstrom macroglobulinemia (HCC) Paraneoplastic neuropathy (HCC) Expected: 08/13/2023 (Approximate), Expires: 10/13/2023 [facility] Work Phone: Comment on above: Expected: 08/13/2023 (Approximate), Expi res: 10/13/2023 Start: 08-13-2023 End: 05-28-2024 Urate [Mass/volume] in Serum or Plasma URIC ACID BLOOD Lab Routine Waldenstrom macroglobulinemia (HCC) Paraneoplastic neuropathy (HCC) Expected: 08/13/2023 (Approximate), Expires: 05/28/2024 [facility] Work Phone: Comment on above: Expected: 08/13/2023 (Approximate), Expi res: 05/28/2024 Start: 08-04-2023 Hemoglobin A1c measurement HbA1C [facility] Start: 08-04-2023 Hemoglobin A1c/Hemoglobin.total in Blood HBA1C [facility] Start: 06-08-2023 Covid-19 Vaccine () Covid-19 Vaccine () [facility] Start: 06-08-2023 Influenza vaccination [facility] Start: 05-23-2023 End: 04-25-2024 [id number] [Mass/volume] in Serum or Plasma B2 MICROGLOBULIN B Lab Routine Waldenstrom macroglobulinemia (HCC) Expected: 05/23/2023 (Approximate), Expires: 04/25/2024 [facility] Work Phone: Comment on above: Expected: 05/23/2023 (Approximate), Expi res: 04/25/2024 Start: 05-23-2023 End: 04-25-2024 Calcium.ionized [Moles/volume] in Blood CALCIUM IONIZED BLOOD Lab Routine Waldenstrom macroglobulinemia (HCC) Expected: 05/23/2023 (Approximate), Expires: 04/25/2024 [facility] Work Phone: Comment on above: Expected: 05/23/2023 (Approximate), Expi res: 04/25/2024 Start: 05-23-2023 End: 04-25-2024 CBC W Auto Differential panel - Blood CBC + DIFF Lab Routine Waldenstrom macroglobulinemia (HCC) Expected: 05/23/2023 (Approximate), Expires: 04/25/2024 [facility] Work Phone: Comment on above: Expected: 05/23/2023 (Approximate), Expi res: 04/25/2024 Start: 05-23-2023 End: 04-25-2024 Comprehensive metabolic 2000 panel - Serum or Plasma COMP METABOLIC PANEL Lab Routine Waldenstrom macroglobulinemia (HCC) Expected: 05/23/2023 (Approximate), Expires: 04/25/2024 [facility] Work Phone: Comment on above: Expected: 05/23/2023 (Approximate), Expi res: 04/25/2024 Start: 05-23-2023 End: 07-23-2023 KAPPA/KING,FREE,SER KAPPA/KING,FREE,SER Lab Routine Waldenstrom macroglobulinemia (HCC) Expected: 05/23/2023 (Approximate), Expires: 07/23/2023 [facility] Work Phone: Comment on above: Expected: 05/23/2023 (Approximate), Expi res: 07/23/2023 Start: 05-23-2023 End: 04-25-2024 Lactate dehydrogenase [Enzymatic activity/volume] in Serum or Plasma LD LACTATE DEHYDRO Lab Routine Waldenstrom macroglobulinemia (HCC) Expected: 05/23/2023 (Approximate), Expires: 04/25/2024 [facility] Work Phone: Comment on above: Expected: 05/23/2023 (Approximate), Expi res: 04/25/2024 Start: 05-23-2023 End: 04-25-2024 MONOCLONAL PROTEIN, SERUM (BLOOD) MONOCLONAL PROTEIN, SERUM (BLOOD) Lab Routine Waldenstrom macroglobulinemia (HCC) Expected: 05/23/2023 (Approximate), Expires: 04/25/2024 [facility] Work Phone: Comment on above: Expected: 05/23/2023 (Approximate), Expi res: 04/25/2024 Start: 05-23-2023 End: 04-25-2024 Phosphate [Mass/volume] in Serum or Plasma PHOSPHORUS INORGANIC Lab Routine Waldenstrom macroglobulinemia (HCC) Expected: 05/23/2023 (Approximate), Expires: 04/25/2024 [facility] Work Phone: Comment on above: Expected: 05/23/2023 (Approximate), Expi res: 04/25/2024 Start: 05-23-2023 End: 04-25-2024 PROTEIN ELECTROPHORESIS SERUM W/INTERP PROTEIN ELECTROPHORESIS SERUM W/INTERP Lab Routine Waldenstrom macroglobulinemia (HCC) Expected: 05/23/2023 (Approximate), Expires: 04/25/2024 [facility] Work Phone: Comment on above: Expected: 05/23/2023 (Approximate), Expi res: 04/25/2024 Start: 05-23-2023 End: 07-23-2023 SERUM VISCOSITY SERUM VISCOSITY Lab Routine Waldenstrom macroglobulinemia (HCC) Expected: 05/23/2023 (Approximate), Expires: 07/23/2023 [facility] Work Phone: Comment on above: Expected: 05/23/2023 (Approximate), Expi res: 07/23/2023 Start: 05-23-2023 End: 04-25-2024 Urate [Mass/volume] in Serum or Plasma URIC ACID BLOOD Lab Routine Waldenstrom macroglobulinemia (HCC) Expected: 05/23/2023 (Approximate), Expires: 04/25/2024 [facility] Work Phone: Comment on above: Expected: 05/23/2023 (Approximate), Expi res: 04/25/2024 Start: 05-12-2023 Adult depression screening assessment DEPRESSION SCREENING [facility] Start: 05-12-2023 End: 02-10-2024 [id number] [Mass/volume] in Serum or Plasma B2 MICROGLOBULIN B Lab Routine Waldenstrom macroglobulinemia (HCC) Type 2 diabetes mellitus with diabetic polyneuropathy, without long-term current use of insulin (HCC) Expected: 05/12/2023 (Approximate), Expires: 02/10/2024 [facility] Work Phone: Comment on above: Expected: 05/12/2023 (Approximate), Expi res: 02/10/2024 Start: 05-12-2023 End: 02-10-2024 Calcium.ionized [Moles/volume] in Blood CALCIUM IONIZED BLOOD Lab Routine Waldenstrom macroglobulinemia (HCC) Type 2 diabetes mellitus with diabetic polyneuropathy, without long-term current use of insulin (HCC) Expected: 05/12/2023 (Approximate), Expires: 02/10/2024 [facility] Work Phone: Comment on above: Expected: 05/12/2023 (Approximate), Expi res: 02/10/2024 Start: 05-12-2023 End: 02-10-2024 CBC W Auto Differential panel - Blood CBC + DIFF Lab Routine Waldenstrom macroglobulinemia (HCC) Type 2 diabetes mellitus with diabetic polyneuropathy, without long-term current use of insulin (HCC) Expected: 05/12/2023 (Approximate), Expires: 02/10/2024 [facility] Work Phone: Comment on above: Expected: 05/12/2023 (Approximate), Expi res: 02/10/2024 Start: 05-12-2023 End: 02-10-2024 Comprehensive metabolic 2000 panel - Serum or Plasma COMP METABOLIC PANEL Lab Routine Waldenstrom macroglobulinemia (HCC) Type 2 diabetes mellitus with diabetic polyneuropathy, without long-term current use of insulin (HCC) Expected: 05/12/2023 (Approximate), Expires: 02/10/2024 [facility] Work Phone: Comment on above: Expected: 05/12/2023 (Approximate), Expi res: 02/10/2024 Start: 05-12-2023 End: 07-12-2023 KAPPA/KING,FREE,SER KAPPA/KING,FREE,SER Lab Routine Waldenstrom macroglobulinemia (HCC) Type 2 diabetes mellitus with diabetic polyneuropathy, without long-term current use of insulin (HCC) Expected: 05/12/2023 (Approximate), Expires: 07/12/2023 [facility] Work Phone: Comment on above: Expected: 05/12/2023 (Approximate), Expi res: 07/12/2023 Start: 05-12-2023 End: 02-10-2024 Lactate dehydrogenase [Enzymatic activity/volume] in Serum or Plasma LD LACTATE DEHYDRO Lab Routine Waldenstrom macroglobulinemia (HCC) Type 2 diabetes mellitus with diabetic polyneuropathy, without long-term current use of insulin (HCC) Expected: 05/12/2023 (Approximate), Expires: 02/10/2024 [facility] Work Phone: Comment on above: Expected: 05/12/2023 (Approximate), Expi res: 02/10/2024 Start: 05-12-2023 End: 02-10-2024 MONOCLONAL PROTEIN, SERUM (BLOOD) MONOCLONAL PROTEIN, SERUM (BLOOD) Lab Routine Waldenstrom macroglobulinemia (HCC) Type 2 diabetes mellitus with diabetic polyneuropathy, without long-term current use of insulin (HCC) Expected: 05/12/2023 (Approximate), Expires: 02/10/2024 [facility] Work Phone: Comment on above: Expected: 05/12/2023 (Approximate), Expi res: 02/10/2024 Start: 05-12-2023 End: 02-10-2024 Phosphate [Mass/volume] in Serum or Plasma PHOSPHORUS INORGANIC Lab Routine Waldenstrom macroglobulinemia (HCC) Type 2 diabetes mellitus with diabetic polyneuropathy, without long-term current use of insulin (HCC) Expected: 05/12/2023 (Approximate), Expires: 02/10/2024 [facility] Work Phone: Comment on above: Expected: 05/12/2023 (Approximate), Expi res: 02/10/2024 Start: 05-12-2023 End: 02-10-2024 PROTEIN ELECTROPHORESIS SERUM W/INTERP PROTEIN ELECTROPHORESIS SERUM W/INTERP Lab Routine Waldenstrom macroglobulinemia (HCC) Type 2 diabetes mellitus with diabetic polyneuropathy, without long-term current use of insulin (HCC) Expected: 05/12/2023 (Approximate), Expires: 02/10/2024 [facility] Work Phone: Comment on above: Expected: 05/12/2023 (Approximate), Expi res: 02/10/2024 Start: 05-12-2023 End: 07-12-2023 SERUM VISCOSITY SERUM VISCOSITY Lab Routine Waldenstrom macroglobulinemia (HCC) Type 2 diabetes mellitus with diabetic polyneuropathy, without long-term current use of insulin (HCC) Expected: 05/12/2023 (Approximate), Expires: 07/12/2023 [facility] Work Phone: Comment on above: Expected: 05/12/2023 (Approximate), Expi res: 07/12/2023 Start: 05-12-2023 End: 02-10-2024 Urate [Mass/volume] in Serum or Plasma URIC ACID BLOOD Lab Routine Waldenstrom macroglobulinemia (HCC) Type 2 diabetes mellitus with diabetic polyneuropathy, without long-term current use of insulin (HCC) Expected: 05/12/2023 (Approximate), Expires: 02/10/2024 [facility] Work Phone: Comment on above: Expected: 05/12/2023 (Approximate), Expi res: 02/10/2024 Start: 03-16-2023 End: 2024 [id number] [Mass/volume] in Serum or Plasma B2 MICROGLOBULIN B Lab Routine Waldenstrom macroglobulinemia (HCC) Expected: 03/16/2023 (Approximate), Expires: 2024 [facility] Work Phone: Comment on above: Expected: 03/16/2023 (Approximate), Expi res: 2024 Start: 03-16-2023 End: 2024 Calcium.ionized [Moles/volume] in Blood CALCIUM IONIZED BLOOD Lab Routine Waldenstrom macroglobulinemia (HCC) Expected: 03/16/2023 (Approximate), Expires: 2024 [facility] Work Phone: Comment on above: Expected: 03/16/2023 (Approximate), Expi res: 2024 Start: 03-16-2023 End: 2024 CBC W Auto Differential panel - Blood CBC + DIFF Lab Routine Waldenstrom macroglobulinemia (HCC) Expected: 03/16/2023 (Approximate), Expires: 2024 [facility] Work Phone: Comment on above: Expected: 03/16/2023 (Approximate), Expi res: 2024 Start: 03-16-2023 End: 2024 Comprehensive metabolic 2000 panel - Serum or Plasma COMP METABOLIC PANEL Lab Routine Waldenstrom macroglobulinemia (HCC) Expected: 03/16/2023 (Approximate), Expires: 2024 [facility] Work Phone: Comment on above: Expected: 03/16/2023 (Approximate), Expi res: 2024 Start: 03-16-2023 End: 05-16-2023 KAPPA/KING,FREE,SER KAPPA/KING,FREE,SER Lab Routine Waldenstrom macroglobulinemia (HCC) Expected: 03/16/2023 (Approximate), Expires: 05/16/2023 [facility] Work Phone: Comment on above: Expected: 03/16/2023 (Approximate), Expi res: 05/16/2023 Start: 03-16-2023 End: 2024 Lactate dehydrogenase [Enzymatic activity/volume] in Serum or Plasma LD LACTATE DEHYDRO Lab Routine Waldenstrom macroglobulinemia (HCC) Expected: 03/16/2023 (Approximate), Expires: 2024 [facility] Work Phone: Comment on above: Expected: 03/16/2023 (Approximate), Expi res: 2024 Start: 03-16-2023 End: 2024 MONOCLONAL PROTEIN, SERUM (BLOOD) MONOCLONAL PROTEIN, SERUM (BLOOD) Lab Routine Waldenstrom macroglobulinemia (HCC) Expected: 03/16/2023 (Approximate), Expires: 2024 [facility] Work Phone: Comment on above: Expected: 03/16/2023 (Approximate), Expi res: 2024 Start: 03-16-2023 End: 2024 Phosphate [Mass/volume] in Serum or Plasma PHOSPHORUS INORGANIC Lab Routine Waldenstrom macroglobulinemia (HCC) Expected: 03/16/2023 (Approximate), Expires: 2024 [facility] Work Phone: Comment on above: Expected: 03/16/2023 (Approximate), Expi res: 2024 Start: 03-16-2023 End: 2024 PROTEIN ELECTROPHORESIS SERUM W/INTERP PROTEIN ELECTROPHORESIS SERUM W/INTERP Lab Routine Waldenstrom macroglobulinemia (HCC) Expected: 03/16/2023 (Approximate), Expires: 2024 [facility] Work Phone: Comment on above: Expected: 03/16/2023 (Approximate), Expi res: 2024 Start: 03-16-2023 End: 05-16-2023 SERUM VISCOSITY SERUM VISCOSITY Lab Routine Waldenstrom macroglobulinemia (HCC) Expected: 03/16/2023 (Approximate), Expires: 05/16/2023 [facility] Work Phone: Comment on above: Expected: 03/16/2023 (Approximate), Expi res: 05/16/2023 Start: 03-16-2023 End: 2024 Urate [Mass/volume] in Serum or Plasma URIC ACID BLOOD Lab Routine Waldenstrom macroglobulinemia (HCC) Expected: 03/16/2023 (Approximate), Expires: 2024 [facility] Work Phone: Comment on above: Expected: 03/16/2023 (Approximate), Expi res: 2024 Start: 02-07-2023 End: 04-09-2023 CBC W Auto Differential panel - Blood CBC + DIFF Lab Routine Waldenstrom macroglobulinemia (HCC) Monoclonal gammopathy Malignant lymphoma, lymphoplasmacytic (HCC) Other iron deficiency anemia Type 2 diabetes mellitus with diabetic polyneuropathy, without long-term current use of insulin (HCC) Expected: 02/07/2023, Expires: 04/09/2023 [facility] Work Phone: Comment on above: Expected: 02/07/2023, Expires: Start: 02-07-2023 End: 04-09-2023 Comprehensive metabolic 2000 panel - Serum or Plasma COMP METABOLIC PANEL Lab Routine Waldenstrom macroglobulinemia (HCC) Monoclonal gammopathy Malignant lymphoma, lymphoplasmacytic (HCC) Other iron deficiency anemia Type 2 diabetes mellitus with diabetic polyneuropathy, without long-term current use of insulin (HCC) Expected: 02/07/2023, Expires: 04/09/2023 [facility] Work Phone: Comment on above: Expected: 02/07/2023, Expires: Start: 02-07-2023 End: 04-09-2023 Hemoglobin A1c in Blood HGB A1C Lab Routine Waldenstrom macroglobulinemia (HCC) Monoclonal gammopathy Malignant lymphoma, lymphoplasmacytic (HCC) Other iron deficiency anemia Type 2 diabetes mellitus with diabetic polyneuropathy, without long-term current use of insulin (HCC) Expected: 02/07/2023, Expires: 04/09/2023 [facility] Work Phone: Comment on above: Expected: 02/07/2023, Expires: Start: 02-07-2023 End: 04-09-2023 MONOCLONAL PROTEIN, SERUM (BLOOD) MONOCLONAL PROTEIN, SERUM (BLOOD) Lab Routine Waldenstrom macroglobulinemia (HCC) Monoclonal gammopathy Malignant lymphoma, lymphoplasmacytic (HCC) Other iron deficiency anemia Type 2 diabetes mellitus with diabetic polyneuropathy, without long-term current use of insulin (HCC) Expected: 02/07/2023, Expires: 04/09/2023 [facility] Work Phone: Comment on above: Expected: 02/07/2023, Expires: Start: 02-07-2023 End: 04-09-2023 PROT ELECT SERUM WITH ALCIDES AND INTERP PROT ELECT SERUM WITH ALCIDES AND INTERP Lab Routine Waldenstrom macroglobulinemia (HCC) Monoclonal gammopathy Malignant lymphoma, lymphoplasmacytic (HCC) Other iron deficiency anemia Type 2 diabetes mellitus with diabetic polyneuropathy, without long-term current use of insulin (HCC) Expected: 02/07/2023, Expires: 04/09/2023 [facility] Work Phone: Comment on above: Expected: 02/07/2023, Expires: Start: 01-26-2023 Adult BMI Screening Adult BMI Screening [facility] Start: 01-26-2023 Tobacco Screening Tobacco Screening [facility] Start: 11-14-2022 Adult depression screening assessment DEPRESSION SCREENING [facility] Start: 11-11-2022 End: 08-11-2023 [id number] [Mass/volume] in Serum or Plasma B2 MICROGLOBULIN B Lab Routine Waldenstrom macroglobulinemia (HCC) Expected: 11/11/2022 (Approximate), Expires: 08/11/2023 [facility] Work Phone: Comment on above: Expected: 11/11/2022 (Approximate), Expi res: 08/11/2023 Start: 11-11-2022 End: 08-11-2023 Calcium.ionized [Moles/volume] in Blood CALCIUM IONIZED BLOOD Lab Routine Waldenstrom macroglobulinemia (HCC) Expected: 11/11/2022 (Approximate), Expires: 08/11/2023 [facility] Work Phone: Comment on above: Expected: 11/11/2022 (Approximate), Expi res: 08/11/2023 Start: 11-11-2022 End: 08-11-2023 CBC W Auto Differential panel - Blood CBC + DIFF Lab Routine Waldenstrom macroglobulinemia (HCC) Expected: 11/11/2022 (Approximate), Expires: 08/11/2023 [facility] Work Phone: Comment on above: Expected: 11/11/2022 (Approximate), Expi res: 08/11/2023 Start: 11-11-2022 End: 08-11-2023 Comprehensive metabolic 2000 panel - Serum or Plasma COMP METABOLIC PANEL Lab Routine Waldenstrom macroglobulinemia (HCC) Expected: 11/11/2022 (Approximate), Expires: 08/11/2023 [facility] Work Phone: Comment on above: Expected: 11/11/2022 (Approximate), Expi res: 08/11/2023 Start: 11-11-2022 End: 01-11-2023 KAPPA/KING,FREE,SER KAPPA/KING,FREE,SER Lab Routine Waldenstrom macroglobulinemia (HCC) Expected: 11/11/2022 (Approximate), Expires: 01/11/2023 [facility] Work Phone: Comment on above: Expected: 11/11/2022 (Approximate), Expi res: 01/11/2023 Start: 11-11-2022 End: 08-11-2023 Lactate dehydrogenase [Enzymatic activity/volume] in Serum or Plasma LD LACTATE DEHYDRO Lab Routine Waldenstrom macroglobulinemia (HCC) Expected: 11/11/2022 (Approximate), Expires: 08/11/2023 [facility] Work Phone: Comment on above: Expected: 11/11/2022 (Approximate), Expi res: 08/11/2023 Start: 11-11-2022 End: 08-11-2023 MONOCLONAL PROTEIN, SERUM (BLOOD) MONOCLONAL PROTEIN, SERUM (BLOOD) Lab Routine Waldenstrom macroglobulinemia (HCC) Expected: 11/11/2022 (Approximate), Expires: 08/11/2023 [facility] Work Phone: Comment on above: Expected: 11/11/2022 (Approximate), Expi res: 08/11/2023 Start: 11-11-2022 End: 08-11-2023 Phosphate [Mass/volume] in Serum or Plasma PHOSPHORUS INORGANIC Lab Routine Waldenstrom macroglobulinemia (HCC) Expected: 11/11/2022 (Approximate), Expires: 08/11/2023 [facility] Work Phone: Comment on above: Expected: 11/11/2022 (Approximate), Expi res: 08/11/2023 Start: 11-11-2022 End: 08-11-2023 PROTEIN ELECTROPHORESIS SERUM W/INTERP PROTEIN ELECTROPHORESIS SERUM W/INTERP Lab Routine Waldenstrom macroglobulinemia (HCC) Expected: 11/11/2022 (Approximate), Expires: 08/11/2023 [facility] Work Phone: Comment on above: Expected: 11/11/2022 (Approximate), Expi res: 08/11/2023 Start: 11-11-2022 End: 01-11-2023 SERUM VISCOSITY SERUM VISCOSITY Lab Routine Waldenstrom macroglobulinemia (HCC) Expected: 11/11/2022 (Approximate), Expires: 01/11/2023 [facility] Work Phone: Comment on above: Expected: 11/11/2022 (Approximate), Expi res: 01/11/2023 Start: 11-11-2022 End: 08-11-2023 Urate [Mass/volume] in Serum or Plasma URIC ACID BLOOD Lab Routine Waldenstrom macroglobulinemia (HCC) Expected: 11/11/2022 (Approximate), Expires: 08/11/2023 [facility] Work Phone: Comment on above: Expected: 11/11/2022 (Approximate), Expi res: 08/11/2023 Start: 10-08-2022 DEPRESSION ASSESSMENT DEPRESSION ASSESSMENT [facility] Start: 08-12-2022 End: 05-12-2023 [id number] [Mass/volume] in Serum or Plasma B2 MICROGLOBULIN B Lab Routine Waldenstrom macroglobulinemia (HCC) Expected: 08/12/2022 (Approximate), Expires: 05/12/2023 [facility] Work Phone: Comment on above: Expected: 08/12/2022 (Approximate), Expi res: 05/12/2023 Start: 08-12-2022 End: 05-12-2023 Calcium.ionized [Moles/volume] in Blood CALCIUM IONIZED BLOOD Lab Routine Waldenstrom macroglobulinemia (HCC) Expected: 08/12/2022 (Approximate), Expires: 05/12/2023 [facility] Work Phone: Comment on above: Expected: 08/12/2022 (Approximate), Expi res: 05/12/2023 Start: 08-12-2022 End: 05-12-2023 CBC W Auto Differential panel - Blood CBC + DIFF Lab Routine Waldenstrom macroglobulinemia (HCC) Expected: 08/12/2022 (Approximate), Expires: 05/12/2023 [facility] Work Phone: Comment on above: Expected: 08/12/2022 (Approximate), Expi res: 05/12/2023 Start: 08-12-2022 End: 05-12-2023 Comprehensive metabolic 2000 panel - Serum or Plasma COMP METABOLIC PANEL Lab Routine Waldenstrom macroglobulinemia (HCC) Expected: 08/12/2022 (Approximate), Expires: 05/12/2023 [facility] Work Phone: Comment on above: Expected: 08/12/2022 (Approximate), Expi res: 05/12/2023 Start: 08-12-2022 End: 10-12-2022 KAPPA/KING,FREE,SER KAPPA/KING,FREE,SER Lab Routine Waldenstrom macroglobulinemia (HCC) Expected: 08/12/2022 (Approximate), Expires: 10/12/2022 [facility] Work Phone: Comment on above: Expected: 08/12/2022 (Approximate), Expi res: 10/12/2022 Start: 08-12-2022 End: 05-12-2023 Lactate dehydrogenase [Enzymatic activity/volume] in Serum or Plasma LD LACTATE DEHYDRO Lab Routine Waldenstrom macroglobulinemia (HCC) Expected: 08/12/2022 (Approximate), Expires: 05/12/2023 [facility] Work Phone: Comment on above: Expected: 08/12/2022 (Approximate), Expi res: 05/12/2023 Start: 08-12-2022 End: 05-12-2023 MONOCLONAL PROTEIN, SERUM (BLOOD) MONOCLONAL PROTEIN, SERUM (BLOOD) Lab Routine Waldenstrom macroglobulinemia (HCC) Expected: 08/12/2022 (Approximate), Expires: 05/12/2023 [facility] Work Phone: Comment on above: Expected: 08/12/2022 (Approximate), Expi res: 05/12/2023 Start: 08-12-2022 End: 05-12-2023 Phosphate [Mass/volume] in Serum or Plasma PHOSPHORUS INORGANIC Lab Routine Waldenstrom macroglobulinemia (HCC) Expected: 08/12/2022 (Approximate), Expires: 05/12/2023 [facility] Work Phone: Comment on above: Expected: 08/12/2022 (Approximate), Expi res: 05/12/2023 Start: 08-12-2022 End: 05-12-2023 PROTEIN ELECTROPHORESIS SERUM W/INTERP PROTEIN ELECTROPHORESIS SERUM W/INTERP Lab Routine Waldenstrom macroglobulinemia (HCC) Expected: 08/12/2022 (Approximate), Expires: 05/12/2023 [facility] Work Phone: Comment on above: Expected: 08/12/2022 (Approximate), Expi res: 05/12/2023 Start: 08-12-2022 End: 10-12-2022 SERUM VISCOSITY SERUM VISCOSITY Lab Routine Waldenstrom macroglobulinemia (HCC) Expected: 08/12/2022 (Approximate), Expires: 10/12/2022 [facility] Work Phone: Comment on above: Expected: 08/12/2022 (Approximate), Expi res: 10/12/2022 Start: 08-12-2022 End: 05-12-2023 Urate [Mass/volume] in Serum or Plasma URIC ACID BLOOD Lab Routine Waldenstrom macroglobulinemia (HCC) Expected: 08/12/2022 (Approximate), Expires: 05/12/2023 [facility] Work Phone: Comment on above: Expected: 08/12/2022 (Approximate), Expi res: 05/12/2023 Start: 07-19-2022 Influenza vaccination LUNG CANCER SCREENING [facility] Start: 07-19-2022 Screening for malignant neoplasm of lung Lung Cancer Screening [facility] Start: 06-08-2022 Influenza vaccination [facility] Start: 11-30-2021 COVID-19 VACCINE (3 - Booster for [place] series) COVID-19 VACCINE (3 - Booster for [place] series) [facility] Start: 11-30-2021 COVID-19 VACCINE (3 - [place] risk 3-dose series) COVID-19 VACCINE (3 - [place] risk 3-dose series) [facility] Start: 11-30-2021 COVID-19 VACCINE (3 - [place] risk series) COVID-19 VACCINE (3 - [place] risk series) [facility] Start: 10-08-2021 DEPRESSION ASSESSMENT DEPRESSION ASSESSMENT [facility] Start: 07-07-2017 PNEUMOCOCCAL (2 - PPSV23 if available, else PCV20) PNEUMOCOCCAL (2 - PPSV23 if available, else PCV20) [facility] Start: 07-07-2017 PNEUMOCOCCAL (2 - PPSV23 or PCV20) PNEUMOCOCCAL (2 - PPSV23 or PCV20) [facility] Start: 09-01-2016 PNEUMOCOCCAL (2 - PPSV23 if available, else PCV20) PNEUMOCOCCAL (2 - PPSV23 if available, else PCV20) [facility] Start: 09-01-2016 PNEUMOCOCCAL (2 - PPSV23 or PCV20) PNEUMOCOCCAL (2 - PPSV23 or PCV20) [facility] Start: 09-01-2016 Pneumococcal vaccination Pneumococcal Vaccine (2 - PPSV23 or PCV20) [facility] Start: 2014 Administration of varicella zoster vaccine Zoster (Shingles) Vaccine (1 of 2) [facility] Start: 2014 SHINGRIX VACCINE (1 of 2) SHINGRIX VACCINE (1 of 2) [facility] Start: 2009 COLOGUARD (FIT-DNA) COLOGUARD (FIT-DNA) [facility] Start: 2009 Colonoscopy COLONOSCOPY [facility] Start: 2009 COLORECTAL CANCER SCREENING COLORECTAL CANCER SCREENING [facility] Start: [address] COLONOGRAPHY [facility] Start: 2009 FECAL OCCULT BLOOD FECAL OCCULT BLOOD [facility] Start: 2009 Screening for malignant neoplasm of colon [facility] Start: 2009 SIGMOIDOSCOPY SIGMOIDOSCOPY [facility] Start: 1983 DTaP,Tdap and Td Vaccines (1 - Tdap) DTaP,Tdap and Td Vaccines (1 - Tdap) [facility] Start: 1983 HEPATITIS B (1 of 3 - Risk 3-dose series) HEPATITIS B (1 of 3 - Risk 3-dose series) [facility] Start: 1983 SHINGRIX VACCINE (1 of 2) SHINGRIX VACCINE (1 of 2) [facility] Start: 1983 Urine microalbumin profile [facility] Start: 1982 Adult BMI Follow Up Plan Adult BMI Follow Up Plan [facility] Start: 1982 ANNUAL PCP TEAM CHRONIC DISEASE VISIT ANNUAL PCP TEAM CHRONIC DISEASE VISIT [facility] Start: 1982 Anxiety Screening Anxiety Screening [facility] Start: 1982 Depression Screening Depression Screening [facility] Start: 1982 Hepatitis B surface antibody level LDL CHOLESTEROL [facility] Start: 1982 HEPATITIS C SCREENING HEPATITIS C SCREENING [facility] Start: 1982 Hepatitis C screening Hepatitis C Screening [facility] Start: 1982 HIV SCREENING HIV SCREENING [facility] Start: 1982 HIV screening HIV Screening [facility] Start: 1980 ONE PNEUMOVAX PRIOR TO AGE 65 ONE PNEUMOVAX PRIOR TO AGE 65 [facility] Start: 1976 Depression Screening Depression Screening [facility] Start: 1974 3 comp foot exam completed DIABETIC FOOT EXAM [facility] Start: 1974 Diabetic foot examination Diabetic Foot Exam [facility] Start: 1974 Glaucoma screening Dilated Retinal Exam [facility] Start: 1974 Hepatitis B screening URINE ALBUMIN:CREATININE RATIO [facility] Start: 1974 Hepatitis C antibody, confirmatory test DILATED RETINAL EXAM [facility] Start: 1969 Hemoglobin A1c/Hemoglobin.total in Blood HBA1C [facility] Start: 1964 HEPATITIS B (1 of 3 - 3-dose series) HEPATITIS B (1 of 3 - 3-dose series) [facility] Start: 1964 Screening for malignant neoplasm of colon [facility] Start: 1964 Tobacco Counseling Tobacco Counseling [facility] End: 08-27-2025 CBC W Auto Differential panel - Blood COMPLETE BLOOD COUNT AND DIFFERENTIAL Lab Routine Waldenstrom macroglobulinemia Once per week for 2 Occurrences starting 08/27/2024 until 08/27/2025 [facility] Work Phone: Comment on above: Once per week for 2 Occurrences starting 08/27/2024 until 08/27/2025 End: 01-07-2025 Colonoscopy Colonoscopy GI Routine Encounter for colonoscopy due to history of colonic polyp 1 Occurrences starting 01/08/2024 until 01/07/2025 [facility] Comment on above: 1 Occurrences starting 01/08/2024 until 01/07/2025 Comprehensive metabo lic 2000 panel - Serum or Plasma [facility] End: 08-27-2025 Comprehensive metabolic 2000 panel - Serum or Plasma COMPREHENSIVE METABOLIC PANEL Lab Routine Waldenstrom macroglobulinemia Once per week for 2 Occurrences starting 08/27/2024 until 08/27/2025 [facility] Comment on above: Once per week for 2 Occurrences starting 08/27/2024 until 08/27/2025 End: 01-07-2025 Esophagogastroduodenoscopy EGD GI Routine Gastroesophageal reflux disease, unspecified whether esophagitis present 1 Occurrences starting 01/08/2024 until 01/07/2025 [employer] Work Phone: Comment on above: 1 Occurrences starting 01/08/2024 until 01/07/2025 Microalbumin [Mass/v olume] in Urine [facility] Patient Education Know your Meds [facility] Work Phone: End: 06-24-2025 Surgical Pathology Surgical Pathology Pathology and Cytology Routine Epidermoid cyst of skin of chest 1 Occurrences starting 06/24/2024 until 06/24/2025 [employer] Work Phone: Comment on above: 1 Occurrences starting 06/24/2024 until 06/24/2025 XR Cervical spine Vi ews W flexion and W extension [facility] Immunizations Immunization Date Immunization Notes Care Provider Jim cota 06-12-2024 COVID-19 (MODERNA) 12Y and older Joby Mays DO Work Phone: [facility] 06-12-2024 influenza, injectabl e, madin kiel canine kidney, preservative free Trinh Ramirez RECORDS TECHNICIAN.[employer] Work Phone: [facility] 06-12-2024 respiratory syncytia l virus (RSV) vaccine, bivalent (ABRYSVO) Trinh Ramirez RECORDS TECHNICIAN.[employer] Work Phone: [facility] 12-06-2023 zoster vaccine recombinant Wanda Vandana PA-C Work Phone: [facility] 10-26-2023 COVID-19 (PFIZER) 12Y and older Joby Mays DO Work Phone: [facility] 10-26-2023 Influenza, injectabl e, Madin Winfield Canine Kidney, preservative free, quadrivalent Wanda Vandana PA-C Work Phone: [facility] 10-26-2023 influenza virus vaccine, unspecified formulation Olamide Velasquez RECORDS TECHNICIAN-[employer] Work Phone: [facility] 06-27-2023 zoster vaccine recombinant Wanda Vandana PA-C Work Phone: [facility] 06-06-2023 pneumococcal polysaccharide vaccine, 23 valent Joby Mays Other [employer] Other 07-20-2022 influenza, injectabl e, quadrivalent, preservative free Zeynep Burton APRN.[employer] Work Phone: [facility] 07-20-2022 influenza virus vaccine, unspecified formulation Joon Piper MD Work Phone: [facility] 10-05-2021 COVID-19 Ad26.COV2.S ([place]) Joby Mays DO Work Phone: [facility] 04-27-2021 COVID-19 Ad26.COV2.S ([place]) Joby Mays DO Work Phone: [facility] 07-21-2020 influenza virus vaccine, unspecified formulation Not Ref Prov [facility] 07-21-2020 influenza, seasonal, injectable Zeynep Micheal RECORDS TECHNICIAN.[employer] Work Phone: [facility] 07-15-2020 influenza, injectabl e, quadrivalent, preservative free Zeynep Micheal RECORDS TECHNICIAN.[employer]ER Work Phone: [facility] 07-15-2019 influenza, injectabl e, quadrivalent, preservative free Zeynep Micheal RECORDS TECHNICIAN.[employer] TE[employer]ER Work Phone: [facility] 08-12-2018 influenza, injectabl e, quadrivalent, preservative free Zeynep Micheal RECORDS TECHNICIAN.[employer] TEACHER Work Phone: [facility] 07-17-2018 influenza virus vaccine, split virus (incl. purified surface antigen) Joby Mays Other [facility] 07-17-2018 influenza virus vaccine, unspecified formulation [facility] 08-03-2017 influenza, intraderm al, quadrivalent, preservative free, injectable Zeynep Micheal RECORDS TECHNICIAN.[employer]ER Work Phone: [facility] 08-03-2016 seasonal influenza, intradermal, preservative free Zeynep Micheal RECORDS TECHNICIAN.[employer] TE[employer]ER Work Phone: [facility] 07-07-2016 pneumococcal conjuga te vaccine, 13 valent Zeynep Micheal RECORDS TECHNICIAN.[employer]ER Work Phone: [facility] 07-07-2016 pneumococcal Conjuga te, unspecified formulation; Translations: [Need for prophylactic vaccination against Streptococcus pneumoniae (pneumococcus)] Joby Mays Other [employer] Other 07-14-2015 influenza, intraderm al, quadrivalent, preservative free, injectable Zeynep Micheal RECORDS TECHNICIAN.[employer] Work Phone: [facility] Payers Date Payer Category Payer Self-pay [id number] 2021 Commercial Managed C are - [employer] [id number] 2015 Unknown MMO MMO [employer] [id number] 2015-Present [phone] [address] [place] [address] PPO [id number] 2008 Private Health Insurance [id number]. [id number] 2008 Unknown [id number]. 1.13.159.2. [id number] 1964 Unknown [id number] 2.16840.1.823617.3.579.2. 593 1964 Unknown [id number] 2.840.1.734301.3.579.2. 593 1964 Unknown [id number] 2.840.1.406719.3.579.2. 593 1964 Unknown [id number] 2.840.1.691124.3.579.2. 1286 1964 Unknown [id number] 2.16840.1.454961.3.579.2. 128 1964 Unknown [id number] 2.16840.1.664795.3.579.2. 1286 1964 Unknown [id number] 2.16840.1.716428.3.579.2. 1286 1964 Unknown [id number] 2.16840.1.334830.3.579.2. 1286 1964 Unknown [id number] 2.16.840.1.964926.3.579.2. 1285 1964 Unknown [id number] 2.16.840.1.230368.3.579.2. 1285 1964 Unknown [id number] 2.16.840.1.475029.3.579.2. 1285 1964 Unknown [id number] 2.16.840.1.279285.3.579.2. 1285 1964 Unknown [id number] 2.16.840.1.863318.3.579.2. 1285 1964 Unknown [id number] 2.16.840.1.906961.3.579.2. 1258 1964 Unknown [id number] 2.840.1.583143.3.579.2. 1258 1964 Unknown [id number] 2.16840.1.612530.3.579.2. 1258 1964 Unknown [id number] 2.16840.1.358392.3.579.2. 1258 1964 Unknown [id number] 2.16.840.1.383129.3.579.2. 1258 1964 Unknown [id number] 2.16840.1.803333.3.579.2. 1258 1964 Unknown [id number] 2.16840.1.157263.3.579.2. 1258 1964 Unknown [id number] 2.16840.1.017276.3.579.2. 1258 1964 Unknown [id number] 2.16840.1.102431.3.579.2. 1259 1959 Self-pay [id number] 1959 Unknown [id number] Unknown [id number] 2.16840.1.089715.3.579.2. 531 Unknown [id number] 2.16.840.1.331057.3.579.2. 531 Social History Date Type Detail Facility Start: 03-10-2020 Tobacco smoking stat us NHIS Ex-smoker [facility] Start: 09-12-2024 End: 03-08-2018 History of tobacco use Current smoker [facility] Start: 03-10-2020 End: 11-12-2024 Cigarettes smoked current (pack per day) - Reported 1 [facility] Start: 03-10-2020 End: 02-13-2024 Tobacco use and exposure Smokeless tobacco non-user [facility] Start: 02-10-2022 End: 01-08-2024 Alcohol intake Ex-drinker (finding) [facility] Start: 03-10-2020 End: 04-18-2023 Tobacco Comment quit 2018 [facility] Start: 1965 Sex Assigned At Not on file C [facility] Start: 06-21-2021 End: 08-11-2022 Exposure to SARS-CoV-2 (event) Not sure [facility] Start: 03-08-1993 End: 03-08-2018 History of tobacco use Cigarette Smoker [facility] Start: 04-18-2023 End: 11-12-2024 Sex Assigned At [facility] Start: 04-18-2023 End: 02-13-2024 Tobacco smoking status NHIS Smokes tobacco daily [facility] History of tobacco use Passive smoker [facility] Adult Depression Screening Assessment 0 [facility] Start: 12-12-2023 [facility] Start: 1965 Sex Assigned At Male F [facility] Start: 07-01-2024 End: 11-12-2024 Alcoholic beverage intake Current drinker of alcohol (finding) [facility] How often to you hav e a drink containing alcohol? 2-3 time sa week [facility] How many standard drinks containing alcohol do you have on a typical day? 3 or 4 [facility] How often do you hav e 6 or more drinks on 1 occasion? Monthly [facility] Start: 02-13-2024 Alcohol Comment caffeine: 2-3 cups per day [facility] Start: 05-13-2015 End: 11-11-2024 Sex Male (finding) [facility] Start: 01-26-2022 Alcohol Comment weekends [facility] Start: 05-13-2024 Alcohol [facility] Medical Equipment Procedure Code Equipment Code Equipment Original Text Equipment Identifier Dates Implantation of hypoglossal nerve stimulator [id number] FDA Start: 09-12-2024 Implantation of hypoglossal nerve stimulator Implantable sleep apnoea treatment system, respiration-sensing [id number] FDA Start: 09-12-2024 Implantation of hypoglossal nerve stimulator [id number] FDA Start: 09-12-[address] us Bovine Collagen Matrix 3x3in Soft Tissue Patch - [id number] Start: 09-27-2016 Eio-Tv-F-Kind Im plant - [id number] Start: 09-27-2016 Comment on above: Description: Dirrect inject MURRAY Cement- trial only- do not charge Mesh Micro 60x60 x0.2mm - [id number] Start: 09-27-2016 Screw 1.5mm 4mm Bone Self Drill Cross Pin Craniomaxillofacial - [id number] Start: 09-27-2016 Goals Date Patient Goal Desired Activity /State Functional Status Date Assessment Result Facility 09-30-2016 Are you deaf, or do you have serious difficulty hearing No 09/30/2016 12:24 PM Arden Humphrey No [facility] 09-30-2016 Are you blind, or do you have serious difficulty seeing, even when wearing glasses No 09/30/2016 12:24 PM Arden Humphrey No [facility] 09-30-2016 Do you have serious difficulty walking or climbing stairs No 09/30/2016 12:24 PM Arden Humphrey No [facility] 09-30-2016 Do you have difficul ty dressing or bathing No 09/30/2016 12:24 PM Arden Humphrey No [facility] 09-30-2016 Because of a physica l, mental, or emotional condition, do you have difficulty doing errands alone such as visiting a physician's office or shopping No 09/30/2016 12:24 PM Arden Humphrey No [facility] Mental Status Date Assessment Result Facility 09-30-2016 Because of a physica l, mental, or emotional condition, do you have serious difficulty concentrating, remembering, or making decisions No 09/30/2016 12:24 PM Arden Humphrey No [facility] Clinical Notes 08-05-2021 to 11-17-2024 Telephone Encounter - Tatum Manriquez RN - 11/17/2024 12:42 PM ESTTelephone Encounter - Tatum Manriquez RN - 11/17/2024 12:42 PM ESTNicmichael Eugene, - 11/12/2024 2:45 PM ESTPatient Instructions Note Date & Type Note Facility 11-17-2024 Telephone encounter Note Pt informed of JR message, once verified, using 2 patient identifiers. Patient denies any questions, needs or concerns at this time. Appointment verified. Tatum Manriquez RN [facility] 11-17-2024 Miscellaneous Notes Pt informed of JR message, once verified, using 2 patient identifiers. Patient denies any questions, needs or concerns at this time. Appointment verified. Tatum Manriquez RN documented in this encounter [facility] 11-12-2024 History of Present illness Narrative Chief Complaint Patient presents with Sleep Apnea Subjective The patient is here for inspire device turn on. The patient states that he was biting his tongue frequently after the implant but states that this has resolved. He denies any other issues. He has been using the PAP machine nightly. He hopes that he no longer needs the machine after today. No new issues. He does report some overall decreased nerve sensitivity every since his treatment for waldenstroms. Past Medical History: Diagnosis Date Anemia Anxiety Asthma ([facility]) Controlled type 2 diabetes mellitus without complication, without long-term current use of insulin ([facility]) 07/22/2013 Assessment: BG WNL Plan: continue metformin, continue to monitor CSF leak 07/27/2016 Assessment: no drainage from the right ear Plan: EVD clamped after 8:30, monitor for drainage, check manual pressure tomorrow and if ICP WNL, SA drain can be removed. Depression ([facility]) Depressive disorder ([facility]) 07/22/2013 Dysfunction of left eustachian tube 03/18/2024 Encephalocele ([facility]) 07/27/2016 Procedure(s): 1. Right middle cranial fossa approach for CSF leak repair and cauterization of encephalocele 2. Intraoperative placement of lumbar SA drain 3. Placement of split thickness bone graft with Hydroset over bone defect in temporal bone 4. Placement of Duragen inlay and pericranial flap onlay after intradural explora Essential hypertension ([facility]) 07/22/2013 Lumbago with sciatica, left side 03/18/2024 Lumbar spondylosis 03/18/2024 Neck pain on left side 07/08/2013 Osteoarthritis of knee 03/18/2024 Otorrhea 03/18/2024 Sleep apnea Type II diabetes mellitus ([facility]) Waldenstrom macroglobulinemia Past Surgical History: Procedure Laterality Date COLONOSCOPY 01/2024 OTHER SURGICAL HISTORY 09/12/2024 Inspire Implant ROTATOR CUFF REPAIR Family History Problem Relation Name Age of Onset Coronary artery disease Mother Depression Mother Diabetes Mother Hyperlipidemia Mother Hypertension Mother Stroke Mother Alcohol abuse Father Coronary artery disease Father Hyperlipidemia Father Hypertension Father Alcohol abuse Sibling Social History Tobacco Use Smoking status: Every Day Types: Cigarettes Smokeless tobacco: Never Substance Use Topics Alcohol use: Yes Alcohol/week: 2.0 - 3.0 standard drinks of alcohol Types: 2 - 3 Standard drinks or equivalent per week Comment: caffeine: 2-3 cups per day Allergies: Allopurinol, Doxycycline, Jklpers-ykfnks-obeys pertussis, Acetaminophen, Amlodipine, Hydrocodone, Metoclopramide, Statins, and Tetanus toxoids General: No fever or chills HEENT: No nasal congestion or runny nose Pulmonary: No shortness of breath or cough Cardiovascular: No chest pain or palpitations GI: No nausea or vomiting : No dysuria or hematuria Musculoskeletal: No new aches or pains or muscle weakness Infectious: no recurrent fevers or infections Dermatologic: No rashes or skin lesions Neurologic: No new headaches or dizziness other than in HPI Vitals: 11/12/24 1442 BP: 128/78 Pulse: 71 SpO2: 97% Body mass index is 26.14 kg/m . weight: 177 lb Neurologic exam: Mental status: Awake, alert to person, place and time. Recent and remote memory are intact. Attention and concentration are normal. Fund of knowledge is appropriate for level of education. HEENT: NC/AT Cranial nerves: CN II: Visual acuity is normal. Visual soto full to confrontation. CN III, IV, : pupils equal round and reactive to light. Extraocular movements intact. No ptosis present. CN V: Facial sensation is normal. CN VII: Full and symmetric facial movement. CN VIII: Hearing is normal to finger rub bilaterally: CN IX and X: Palate elevates symmetrically. Normal gag reflex. CN XI: Shoulder shrug is normal bilaterally. CN XII: Tongue is midline without atrophy or fasciculation. Speech: Clear and fluent no aphasia or dysarthria Pronator drift: Negative bilateral upper extremity Coordination: Intact, no signs of dysmetria Good finger to nose and rapid alternating movements Sensory: Grossly intact Motor: LUE 5/5 RUE 5/5 LLE 5/5 RLE 5/5 Tone: Physiologic, no tremor, bradykinesia or rigidity DTR: Biceps, BR x Patellar x No spasticity Gait: Normal to casual gait Romberg's Negative Assessment/Plan Diagnoses and all orders for this visit: TIANNA (obstructive sleep apnea) - VNS Device Interrogation w/simple programming 3 or fewer parameters Hypersomnia Snoring Numbness 59-year-old male with a history of obstructive sleep apnea with an AHI of 20 leading to daytime hypersomnolence and snoring. He was first diagnosed in 2011. Reviewed his original studies. He was titrated up to 11 cm of water. He has had difficulty tolerating the CPAP mask. Patient is status post inspire placement. He is here today to get his inspire turned on. With the assistance of Cole shukla the inspire rep the patient's inspire was turned on with instructions to him how to gradually escalate the stimulation over the next few weeks until we see him in a month. We did update his PSG 01/09/2024 and this did reveal a moderate TIANNA with an AHI of 19 per. He does have signs that could be consistent with periodic limb movement disorder. History of diabetes and complaint of numbness to BUE and BLE. . . . Plan Inspire was turned on today gradually escalating the dosage over the next month until we see him back. He was counseled on how to do this and if he has any discomfort to stay where he is or go back down 1 for another week or so have high tolerance to the sensitivity likely due to the treatment from his Waldenstrom's Monitor for PLMD Continue with adequate hours of sleep and try to be active during the day This was discussed with the patient, all questions were answered and they agreed with the treatment plan. The patient is to call with any worsening of the condition or new symptoms. Return to clinic: Once Inspire is implanted then he will or the rep will call for a follow up documented in this encounter [facility] 11-12-2024 Note [facility] 11-12-2024 History of Present illness Narrative Images from the original note were not included. NAME: Kodi Rivas [employer] NO.: [id number] DATE OF SERVICE: November 12, 2024 (Rachael) Some elements in this clinic note that are critical to medical decision making have been carefully reviewed and included from a prior clinic note dated: September 17, 2024 (Veronique) Referring Provider: Dr. Harrison Mays CC: Follow up ASSESSMENT: 1. Waldenstrom macroglobulinemia 59 year old gentleman with IgM kappa monoclonal gammopathy and anemia with fatigue. Dx'd with Waldenstrom Macroglobulinemia. Anti MAG ab's were negative. His symptoms of fatigue improved since starting Rituxan and completing the first 4 weeks. We then treated him successfully again week 17 through 20 as his symptoms returned and completed therapy early 2020. Symptoms of Waldenstrom's returned with fatigue and paresthesias of skin March 2023. - resolved again after re-challenge with rituxan. Returned again July 2024 His neuropathy is improving. PLAN: Rituxan today RTC in 8 weeks to continue Rituxan - plan for 2 years of maintenance treatment (11/2026) Labs same day HPI: CASE HISTORY: Reverse Chronological Order 08/20/2024-09/17/2024 - Rituxan weeky x4 - delayed 3rd dose due to COVID 04/18/2023-05/09/2023 - Rituxan re-challenge weekly x4 08/05/2021 - MRI Liver: Two right hepatic lobe hemangiomas correspond to the abnormalities on prior CT. No metastatic disease in the abdomen. 07/19/2021 - CT Chest: No evidence of intrathoracic lymphadenopathy. Streaky scarring/discoid atelectasis in bilateral lower lobes. Mild emphysematous changes of the lungs. 07/19/2021 - CT A/P: Indeterminate enhancing hepatic foci measuring 2.9 cm. Differential diagnosis includes hemangioma, focal nodular hyperplasia and other hypervascular neoplasm. Consider further evaluation via PET scan or MRI. No evidence of splenomegaly or intra-abdominal/pelvic lymphadenopathy. 09/23/2020-10/21/2020 - Rituxan weekly X 4 rechallenge 05/27/2020-06/24/2020 - Rituxan x 4 weekly Updated Visit, November 12, 2024: Kodi returns today with Anisha. He is here for his first cycle of maintenance Rituxan. Patient states his fatigue has improved. Hemoglobin today is 13.9. Patient denies fever, chills, shortness of breath, diarrhea, constipation. His inspire implant has healed nicely and it will be turned on this week. No worsening neuropathy. Updated Visit, September 17, 2024: Kodi returns with Anisha. He had the inspire implant placed. He is still fatigued although continues improving. He is not anemic, ALC is low due to treatment. Will proceed with 4th dose of Rituxan today and continue maintenance regimen q 8 weeks for 2 years. Updated Visit, September 10, 2024: Kodi returns for Rituxan #3. He missed his treatment last week due to having Covid. Still with some congestion but feeling better. After 2 rituxans his fatigue is better and tingling also improved. Updated Visit, August 27, 2024: Patient returns today with his , Anisha. Patient states that his fatigue and soreness has improved a little bit since his first dose of Rituxan. His neuropathy also has improved a little bit. Patient will receive week 2 of Rituxan today. Patient did get approved for inspire implant for sleep apnea. Has a good appetite. No bowel or bladder issues. No nausea or vomiting. Updated Visit, July 31, 2024: Kodi returns with his , Anisha. He endorses increasing fatigue & soreness, cramping, and neuropathy in his legs. His labs are normal overall. He did have a somewhat increased A1C at last check - neuropathy may be an AE of insulin resistance. We discussed resuming treatment with a BTK inhibitor or Rituxan. He prefers Rituxan due to concern of potential BTK inhibitor side effects. Will plan for a q 8 week maintenance regimen of Rituxan following the initial 4 weekly doses. Will draw testosterone levels also for fatigue. He mentions he is up to date on his vaccines. He is considering the Inspire implant for sleep apnea. Updated Visit, May 08, 2024: Kodi returns for follow up. Boil right chest/breast area for a few weeks. It keeps growing. It is tender and red. No drainage yet. Has a derm appointment . His neuropathy is the same. No new pain. Updated Visit, January 17, 2024: Kodi returns today with Anisha, he is feeling good overall. Neuropathy has improved and he has not needed Neurontin as often. He does complain of joint pain but attributes it to getting older. Labs look good, glucose is a little high. Will consider additional Rituxan after next visit based on symptoms. Updated Visit, October 24, 2023: Kodi returns with Anisha, he reports feeling good today. His M spike is 0. Not adding Rituxan. They are going on a cruise soon and will be gone a few weeks - sailing out of [place]. They are driving the whole way. Updated Visit, August 02, 2023: Says he feels really good. Anisha notice that he's not napping any longer. Officially retired. M-spike 0. Had a cold recently and WBC is elevated. Updated Visit, May 28, 2023: Feel a little better and not quite as sick feeling. Still gets fatigued. Will reconsider in 3 months. Gets up 2 x each night to void. Will be seeing PCP next month and will discuss. Updated Visit, April 25, 2023: Here with Anisha - interestingly his M-spike resolved prior to starting Rituxan again. No change in symptoms. Updated Visit, April 18, 2023: Kodi Rivas returns for follow-up and to begin Rituxan weekly x4 rechallenge. He denies any fevers, chills, night sweats and signs/symptoms of infection. No bleeding or abnormal bruising. He denies any palpable lumps or bumps. He has had left heel pain for a couple of months. His biggest complaints are fatigue and generalized weakness. He has numbness and tingling in his arms and knees down to feet. Overall, he is doing well and wishes to proceed with treatment as planned. Updated Visit, March 14, 2023: For past two months has been getting progressive fatigue, lost weight, as well losing strength. Sleeps a lot. Worried disease is progressing. Brain fog and forgetfulness have returned. Last Rituxan was October 2020. Paresthesias of skin. Updated Visit, February 09, 2023: Feels good. Reviewed labs with him. No symptoms indicating need for treatment. Slight increase in M-spike Updated Visit, November 09, 2022: Kodi Rivas returns for follow-up. Since his last visit there has been no medical changes. He states that he is feeling good. He has some joint and bone pain which he states is old age . He denies any fatigue. He denies fevers, chills, night sweats and signs/symptoms of infection. No bleeding or abnormal bruising. He offers no new complaints today. Updated Visit, August 11, 2022: Feels good and is going to [place] for his Honeymoon - got July 22, 2022. (Anisha) M-spike continues to be stable. Updated Visit, May 12, 2022: Kodi returns and seems to be doing well. No new symptoms Fatigue stable M-spike decreasing on it's own Updated Visit, February 10, 2022: Kodi Rivas returns for follow-up and to review recent labs. Since his last visit he was diagnosed with colitis. He was seen at [facility]. He developed blood in his stools. He was placed on an antibiotic which is now complete. He denies any unusual pain. He is urinating okay. His weight is stable. He is eating and drinking well. He denies fevers, chills and infections. He has occasional night sweats. He denies bleeding and abnormal bruising. No new palpable lumps or bumps. Overall, today he is feeling well with no new complaints. No new issues, problems or concerns. Updated Visit, November 14, 2021: Weight is recovering and FUO resolved. Labs are stable. Left anterior chest at the 2 O'Clock position from the nipple was a small palpable nodule slightly tender, mobile and less than 1 cm. He will watch to see that this resolve or change. Otherwise he is doing well. He got engaged just before Marshall 2021. Updated Visit, August 11, 2021: Kodi Rivas is a 56 year old male seen for Waldenstrom's disease. Recent scans for neck pain and general malaise showed liver lesions confirmed on subsequent MRI to be benign hemangiomas. Symptoms have since resolved. Updated Visit, July 01, 2021: Kodi returns and all laboratory indices are improving. He is losing weight for unknown reason. Has soaking night sweats. Mild fatigue but not unusual for the amount of work he does. This is different than his symptoms associated with WMG. Symptoms not associated with Covid-19 Vaccination. Kendra is with hm today. His late Lorna had introduced them years ago. Updated Visit, April 01, 2021: Kodi is 56 years old and continues to do well following his second course of Rituxan completed in October 2020 for Hunters Laura's macroglobulinemia that presents with fatigue as his primary symptom. Overall he is doing well. However, he is dealing with his left ear drainage is being managed by his primary care physician. He otherwise has no issues. M protein measures 0.19 which is the lowest has been since his initial diagnosis. Updated Visit, December 16, 2020: Kodi is 55 and completed his second 4 week course of Rituxan in mid October 2020. He has regained his energy and is doing well. Additionally, he has started a new relationship and is very happy. Serum / myeloma labs are pending, but counts are stable. Updated Visit, October 21, 2020: Kodi is 55 and returns to finish his last weekly dose of Rituxan weeks 17-20 with a one week delay from last week to recover from allergies that were causing severe itching in the eyes. Most symptoms have resolved. Sleep is really good. This week it seems like his fatigue is a little worse but is likely weather and seasonally related. Updated Visit, September 23, 2020: Patient returns today to rechallenge with weekly Rituxan X 4 after he originally responded well in June with resolution of his anemia and fatigue, but most recently in August his fatigue recurred. We postponed restarting Rituxan until he had his right inguinal repair, which was done on 09/15/[address] Combs at [facility]. He states this procedure went well and he is now recovered. He is feeling well other than fatigue. Denies headache, bloody nose, impaired vision, neuropathy, cough or shortness of breath. He did take Benadryl 50 mg PO and Tylenol at home as well this morning. Updated Visit, August 23, 2020: Kodi is 55 yo and felt great following his 1st 4 weeks of Rituximab for Waldenstrom's Macroglobulinemia but now has a profound recurrence of symptoms. We discussed treatment options of continuing Rituxan for 4 additional weekly doses which will be weeks 17-20 (Starting 09/23/2020 for 4 weeks). He has right inguinal hernia repair planned 09/15/2020 and we will commence treatment after. We can consider a short course of maintenance or add Ibrutinib in the future for relapsing symptoms. He has appointments September 08, 2020 for repeat labs which he will keep. We also discussed consideration of other causes of fatigue but he responded so nicely previously with reversal of symptoms that this is the most likely cause. Updated Visit, July 17, 2020: Kodi returns on Rituxan single agent for Waldenstrom's M. He has seemed to regain strength and energy and feels he is almost back to normal. We will finish his current course and at return of symptoms, we will add Ibrutinib to his second line. Updated Visit, June 10, 2020: Kodi is 55 years old and returns after having his first dose of Rituxan during which he had a pretty significant infusion reaction and was unable to complete the full dose. Following this, last week he got weak and hot at work and felt like he was going to pass out. He ended up sleeping for a whole day, then got COVID testing (was negative) and two days later he had recovered. Unsure the etiology. He presents for his second dose today. Fatigue is unchanged. Updated Visit, May 27, 2020: Kodi is 55 yo and has Waldenstrom's macroglobulinemia. He comes in earlier than scheduled and is frustrated that his symptoms of fatigue and neuropathy are worse. He has elected to proceed with treatment using single agent Rituxan. Updated Visit, April 08, 2020: Kodi returns with his girlfriend to review his bone marrow biopsy results. Findings are consistent with Waldenstrom Macroglobulinemia. MYD88 +, Serum viscosity was 1.7. I cannot fully explain his neuropathy and will obtain Anti MAG antibodies. Updated Visit, March 24, 2020: Kodi is 55 yo and has what appears to have a primary bone marrow process that is concerning for either an IgM plasma cell disorder or a Lymphoplasmacytic lymphoma or Waldenstrom disease. He has numbness everywhere (and some tingling) mostly numbness seems to be getting worse over the past few months. He has no other clear causes. He may have some benefit from B12 supplementation, but will need a bone marrow biopsy to fully assess. Initial Visit, March 10, 2020: Kodi Rivas presents today Hematology and Oncology evaluation. He is a 55 year old male who presents for workup of anemia and elevated protein levels. 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 He is currently very fatigued despite being on CPAP for sleep apnea and he also has some depression related to the passing of his 3 years ago in a car accident. He had a CT scan due to the weight loss that showed a pancreatic abnormality but overall negative study. He had an EGD and EUS which is unremarkable per his report. He also reports a prior history of pancreatitis in 2010. His last colonoscopy was in 2018 or 19 reported that it was clear that I see is also had a history of an adenomatous polyp. He had a serum protein immunologic pheresis obtained which came back abnormal. Labs from 03/03/2020 as follows CBC: 5.6 > 12.7/37.7 < 239, MCV 88.5, RDW 12.9, slightly decreased lymphocytes. Since findings show immunofixation demonstrating IgM monoclonal protein with kappa light chain specificity. Quantitative IgM 335 mg/dL IgG and IgA while decreased are within normal limits. Ferritin 30, B12 526, FT4 0.78, TSH 0.37, free T3 2 0.30, no clinically significant abnormalities on CMP with normal creatinine and normal calcium. REVIEW OF SYSTEMS Per HPI and otherwise negative by full review of organ systems. ECOG PERFORMANCE STATUS: 0 PHYSICAL EXAMINATION: Vitals: BP 112/70 Pulse 74 Temp (Src) 97.1 (Temporal) Resp 16 Ht 5' 9.528 (1.77m) Wt 177 lb 0.5 oz (80.3kg) SpO2 98% BMI 25.75 kg/(m^2). Body surface area is 1.98 meters squared. Exam limited to gross visualization where appropriate. Gen.: This is an age-appropriate patient in no acute distress. Head: Appears atraumatic with no visible lesions. Eyes: Pupils equally round and reactive to light, extraocular muscles are intact. Neck: Supple. Healing surgical wound on right neck. Respiratory: Appears to be respiring comfortably. Neurologic: Nonfocal to gross visualization. Alert and oriented 3. Psychiatric: No evidence of inappropriate anxiety or depression. Skin: Visible areas of skin without rash, lesions, wounds or petechiae. ALLERGIES: ALLERGIES Allergen Reactions Allopurinol Unknown Doxycycline GI Upset Other Reaction(s): Gastrointestinal Upset Tetanus And Diphthe* Anaphylaxis Atorvastatin Other: See Comments Hydrocodone Other: See Comments Other Reaction(s): Unknown Reaction Metoclopramide Other: See Comments, Unknown Other Reaction(s): Mental Status Change, panic attack, Unknown Other reaction(s): Mental Status Change Other Reaction(s): Mental Status Change Other Reaction(s): Hallucinating Reglan [Metoclopram* Mental Status Change Tetnus [Tetanus Vac* Anaphylaxis MEDICATIONS: acetaminophen (TYLENOL EXTRA STRENGTH) 500 mg tablet^Take 500 mg by mouth every 8 hours as needed.^Disp: ^Rfl: Ibuprofen 200 mg cap^Take by mouth every 6 hours as needed.^Disp: ^Rfl: multivitamin tablet^Take 1 tablet by mouth once daily.^Disp: ^Rfl: amLODIPine (NORVASC) 10 mg tablet^Take 10 mg by mouth once daily.^Disp: ^Rfl: albuterol HFA (PROVENTIL HFA, VENTOLIN HFA) 90 mcg/actuation inhaler^INHALE 2 PUFFS BY MOUTH NEEDED^Disp: ^Rfl: sildenafil (VIAGRA) 100 mg tablet^Take 100 mg by mouth as needed.^Disp: ^Rfl: Benazepril HCl 40 mg tablet^Take 40 mg by mouth once daily.^Disp: ^Rfl: sertraline (ZOLOFT) 100 mg tablet^Take 100 mg by mouth twice daily. ^Disp: ^Rfl: METFORMIN HCL (METFORMIN ORAL)^Take 500 mg by mouth once daily.^Disp: ^Rfl: OMEPRAZOLE (PRILOSEC ORAL)^Take 20 mg by mouth once daily.^Disp: ^Rfl: LORATADINE (CLARITIN ORAL)^Take 10 mg by mouth as needed.^Disp: ^Rfl: gabapentin (NEURONTIN) 100 mg capsule^Take 1 capsule by mouth daily at bedtime for 180 days.^Disp: 90 capsule^Rfl: 1 LABORATORY VALUES: WBC (k/uL) Date Value 11/12/2024 7.35 RBC (m/uL) Date Value 11/12/2024 4.56 Hemoglobin (g/dL) Date Value 11/12/2024 13.9 Hematocrit (%) Date Value 11/12/2024 39.8 MCV (fL) Date Value 11/12/2024 87.3 MCH (pg) Date Value 11/12/2024 30.5 MCHC (g/dL) Date Value 11/12/2024 34.9 RDW-CV (%) Date Value 11/12/2024 13.2 Platelet Count (k/uL) Date Value 11/12/2024 244 MPV (fL) Date Value 11/12/2024 9.7 Glucose (mg/dL) Date Value 11/12/2024 131 (H) BUN (mg/dL) Date Value 11/12/2024 26 (H) Creatinine (mg/dL) Date Value 11/12/2024 0.92 Sodium (mmol/L) Date Value 11/12/2024 140 Potassium (mmol/L) Date Value 11/12/2024 4.1 Chloride (mmol/L) Date Value 11/12/2024 104 CO2 (mmol/L) Date Value 11/12/2024 25 Protein, Total (g/dL) Date Value 11/12/2024 6.7 Albumin (g/dL) Date Value 11/12/2024 4.3 Calcium, Total (mg/dL) Date Value 11/12/2024 9.5 Alkaline Phosphatase (U/L) Date Value 11/12/2024 93 Bilirubin, Total (mg/dL) Date Value 11/12/2024 0.2 AST (U/L) Date Value 11/12/2024 11 (L) ALT (U/L) Date Value 11/12/2024 13 M-Protein Concentration Date Value 08/13/2024 0.00 g/dL 07/24/2024 0.00 g/dL 04/17/2024 0.00 g/dL 01/10/2024 0.00 g/dL 10/18/2023 0.00 g/dL 11/04/2021 0.21 gm/dL 07/19/2021 0.19 gm/dL 06/24/2021 0.17 gm/dL 03/18/2021 0.19 gm/dL 12/16/2020 0.24 gm/dL DIAGNOSIS: (C88.00) Waldenstrom macroglobulinemia (primary encounter diagnosis) (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, 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) PAST MEDICAL HISTORY Diagnosis Date Acid reflux Depression Diabetes (HCC) Elevated blood protein High blood pressure High cholesterol Sleep apnea Waldenstrom macroglobulinemia 05/21/2020 PAST SURGICAL HISTORY Procedure Laterality Date COLONOSCOPY 2014 EGD PAST SURGICAL HISTORY OF 09/2014 rotator cuff right shoulder PAST SURGICAL HISTORY OF 2012 umbilical hernia PAST SURGICAL HISTORY OF 05/2015 tubes in ear as an adult Social History Tobacco Use Smoking status: Every Day Current packs/day: 0.00 Average packs/day: 1 pack/day for 25.0 years (25.0 ttl pk-yrs) Types: Cigarettes Start date: 03/08/1993 Last attempt to quit: 03/08/2018 Years since quittin.6 Passive exposure: Current Smokeless tobacco: Never Tobacco comments: quit 2018 Vaping Use Vaping status: Former Substance Use Topics Alcohol use: Not Currently Drug use: Not Currently FAMILY HISTORY Problem Relation Age of Onset Diabetes Mother living other (heart disease [Other]) Father Stroke Mother Multiple Sclerosis Sister . Trinh Ramirez APRN, [facility], [facility] Provided at: [place], [place] CC: Dr. Evan Eugene [address] [facility] [address] [address]. Joby Mays documented in this encounter [facility] 11-05-2024 Telephone encounter Note Patient coming in Sunday11/12/24 for follow up treatment. Please add lab orders. Thanks. Bryanna Rodriguez MA [facility] 11-05-2024 Miscellaneous Notes Patient coming in Sunday11/12/24 for follow up treatment. Please add lab orders. Thanks. Bryanna Rodriguez MA documented in this encounter [facility] 10-29-2024 History of Present illness Narrative HPI Patient presents today 1 month postop inspire implantation. He is doing fine. He is scheduled to be activated in the near future. Relevant postoperative physical examination Exam shows both incisions well healed, no palpable abnormality. Assessment/plan Diagnoses and all orders for this visit: Obstructive sleep apnea (Primary) Comments: I will see the patient back as needed documented in this encounter [facility] 09-22-2024 History of Present illness Narrative HPI Patient presents today 1 week postop inspire implantation. He is doing very well. Relevant postoperative physical examination Examination shows both incisions are intact and healing nicely. No evidence hematoma or seroma. Marginal nerve and hypoglossal nerve are intact. Assessment/plan Kodi was seen today for post-op. Diagnoses and all orders for this visit: Obstructive sleep apnea (Primary) Comments: Patient has an appointment early next year for activation of the device. I will see him back in 1 month. Postoperative instructions were given documented in this encounter [facility] 09-17-2024 Instructions Beverley Burleson - 09/17/2024 9:25 AM EST Rituxan #4 today RTC in 8 weeks to continue Rituxan - plan for 2 years of maintenance treatment Labs same day documented in this encounter [facility] 09-17-2024 History of Present illness Narrative Images from the original note were not included. NAME: Kodi Rivas [employer] NO.: [id number] DATE OF SERVICE: September 17, 2024 (Veronique) Some elements in this clinic note that are critical to medical decision making have been carefully reviewed and included from a prior clinic note dated: September 10, 2024 (Vandana) Referring Provider: Dr. Harrison Mays CC: Follow up ASSESSMENT: 1. Waldenstrom macroglobulinemia 59 year old gentleman with IgM kappa monoclonal gammopathy and anemia with fatigue. Dx'd with Waldenstrom Macroglobulinemia. Anti MAG ab's were negative. His symptoms of fatigue improved since starting Rituxan and completing the first 4 weeks. We then treated him successfully again week 17 through 20 as his symptoms returned and completed therapy early 2020. Symptoms of Waldenstrom's returned with fatigue and paresthesias of skin March 2023. - resolved again after re-challenge with rituxan. Returned again July 2024 His neuropathy is improving. PLAN: Rituxan #4 today RTC in 8 weeks to continue Rituxan - plan for 2 years of maintenance treatment Labs same day HPI: CASE HISTORY: Reverse Chronological Order 08/20/2024-09/17/2024 - Rituxan weeky x4 - delayed 3rd dose due to COVID 04/18/2023-05/09/2023 - Rituxan re-challenge weekly x4 08/05/2021 - MRI Liver: Two right hepatic lobe hemangiomas correspond to the abnormalities on prior CT. No metastatic disease in the abdomen. 07/19/2021 - CT Chest: No evidence of intrathoracic lymphadenopathy. Streaky scarring/discoid atelectasis in bilateral lower lobes. Mild emphysematous changes of the lungs. 07/19/2021 - CT A/P: Indeterminate enhancing hepatic foci measuring 2.9 cm. Differential diagnosis includes hemangioma, focal nodular hyperplasia and other hypervascular neoplasm. Consider further evaluation via PET scan or MRI. No evidence of splenomegaly or intra-abdominal/pelvic lymphadenopathy. 09/23/2020-10/21/2020 - Rituxan weekly X 4 rechallenge 05/27/2020-06/24/2020 - Rituxan x 4 weekly Updated Visit, September 17, 2024: Kodi returns with Anisha. He had the inspire implant placed. He is still fatigued although continues improving. He is not anemic, ALC is low due to treatment. Will proceed with 4th dose of Rituxan today and continue maintenance regimen q 8 weeks for 2 years. Updated Visit, September 10, 2024: Kodi returns for Rituxan #3. He missed his treatment last week due to having Covid. Still with some congestion but feeling better. After 2 rituxans his fatigue is better and tingling also improved. Updated Visit, August 27, 2024: Patient returns today with his , Anisha. Patient states that his fatigue and soreness has improved a little bit since his first dose of Rituxan. His neuropathy also has improved a little bit. Patient will receive week 2 of Rituxan today. Patient did get approved for inspire implant for sleep apnea. Has a good appetite. No bowel or bladder issues. No nausea or vomiting. Updated Visit, July 31, 2024: Kodi returns with his , Anisha. He endorses increasing fatigue & soreness, cramping, and neuropathy in his legs. His labs are normal overall. He did have a somewhat increased A1C at last check - neuropathy may be an AE of insulin resistance. We discussed resuming treatment with a BTK inhibitor or Rituxan. He prefers Rituxan due to concern of potential BTK inhibitor side effects. Will plan for a q 8 week maintenance regimen of Rituxan following the initial 4 weekly doses. Will draw testosterone levels also for fatigue. He mentions he is up to date on his vaccines. He is considering the Inspire implant for sleep apnea. Updated Visit, May 08, 2024: Kodi returns for follow up. Boil right chest/breast area for a few weeks. It keeps growing. It is tender and red. No drainage yet. Has a derm appointment . His neuropathy is the same. No new pain. Updated Visit, January 17, 2024: Koid returns today with Anisha, he is feeling good overall. Neuropathy has improved and he has not needed Neurontin as often. He does complain of joint pain but attributes it to getting older. Labs look good, glucose is a little high. Will consider additional Rituxan after next visit based on symptoms. Updated Visit, October 24, 2023: Kodi returns with Anisha, he reports feeling good today. His M spike is 0. Not adding Rituxan. They are going on a cruise soon and will be gone a few weeks - sailing out of [place]. They are driving the whole way. Updated Visit, August 02, 2023: Says he feels really good. Anisha notice that he's not napping any longer. Officially retired. M-spike 0. Had a cold recently and WBC is elevated. Updated Visit, May 28, 2023: Feel a little better and not quite as sick feeling. Still gets fatigued. Will reconsider in 3 months. Gets up 2 x each night to void. Will be seeing PCP next month and will discuss. Updated Visit, April 25, 2023: Here with Anisha - interestingly his M-spike resolved prior to starting Rituxan again. No change in symptoms. Updated Visit, April 18, 2023: Kodi Rivas returns for follow-up and to begin Rituxan weekly x4 rechallenge. He denies any fevers, chills, night sweats and signs/symptoms of infection. No bleeding or abnormal bruising. He denies any palpable lumps or bumps. He has had left heel pain for a couple of months. His biggest complaints are fatigue and generalized weakness. He has numbness and tingling in his arms and knees down to feet. Overall, he is doing well and wishes to proceed with treatment as planned. Updated Visit, March 14, 2023: For past two months has been getting progressive fatigue, lost weight, as well losing strength. Sleeps a lot. Worried disease is progressing. Brain fog and forgetfulness have returned. Last Rituxan was October 2020. Paresthesias of skin. Updated Visit, February 09, 2023: Feels good. Reviewed labs with him. No symptoms indicating need for treatment. Slight increase in M-spike Updated Visit, November 09, 2022: Kodi Rivas returns for follow-up. Since his last visit there has been no medical changes. He states that he is feeling good. He has some joint and bone pain which he states is old age . He denies any fatigue. He denies fevers, chills, night sweats and signs/symptoms of infection. No bleeding or abnormal bruising. He offers no new complaints today. Updated Visit, August 11, 2022: Feels good and is going to [place] for his Honeymoon - got July 22, 2022. (Anisha) Zaid continues to be stable. Updated Visit, May 12, 2022: Kodi returns and seems to be doing well. No new symptoms Fatigue stable Zaid decreasing on it's own Updated Visit, February 10, 2022: Kodi Rivas returns for follow-up and to review recent labs. Since his last visit he was diagnosed with colitis. He was seen at [facility]. He developed blood in his stools. He was placed on an antibiotic which is now complete. He denies any unusual pain. He is urinating okay. His weight is stable. He is eating and drinking well. He denies fevers, chills and infections. He has occasional night sweats. He denies bleeding and abnormal bruising. No new palpable lumps or bumps. Overall, today he is feeling well with no new complaints. No new issues, problems or concerns. Updated Visit, November 14, 2021: Weight is recovering and FUO resolved. Labs are stable. Left anterior chest at the 2 O'Clock position from the nipple was a small palpable nodule slightly tender, mobile and less than 1 cm. He will watch to see that this resolve or change. Otherwise he is doing well. He got engaged just before 2020. Updated Visit, August 11, 2021: Kodi Rivas is a 56 year old male seen for Waldenstrom's disease. Recent scans for neck pain and general malaise showed liver lesions confirmed on subsequent MRI to be benign hemangiomas. Symptoms have since resolved. Updated Visit, July 01, 2021: Kodi returns and all laboratory indices are improving. He is losing weight for unknown reason. Has soaking night sweats. Mild fatigue but not unusual for the amount of work he does. This is different than his symptoms associated with WMG. Symptoms not associated with Covid-19 Vaccination. Kendra is with hm today. His late Lorna had introduced them years ago. Updated Visit, April 01, 2021: Kodi is 56 years old and continues to do well following his second course of Rituxan completed in October 2020 for Jennifer Laura's macroglobulinemia that presents with fatigue as his primary symptom. Overall he is doing well. However, he is dealing with his left ear drainage is being managed by his primary care physician. He otherwise has no issues. M protein measures 0.19 which is the lowest has been since his initial diagnosis. Updated Visit, December 16, 2020: Kodi is 55 and completed his second 4 week course of Rituxan in mid October 2020. He has regained his energy and is doing well. Additionally, he has started a new relationship and is very happy. Serum / myeloma labs are pending, but counts are stable. Updated Visit, October 21, 2020: Kodi is 55 and returns to finish his last weekly dose of Rituxan weeks 17-20 with a one week delay from last week to recover from allergies that were causing severe itching in the eyes. Most symptoms have resolved. Sleep is really good. This week it seems like his fatigue is a little worse but is likely weather and seasonally related. Updated Visit, September 23, 2020: Patient returns today to rechallenge with weekly Rituxan X 4 after he originally responded well in June with resolution of his anemia and fatigue, but most recently in August his fatigue recurred. We postponed restarting Rituxan until he had his right inguinal repair, which was done on 09/15/[address] Combs at [facility]. He states this procedure went well and he is now recovered. He is feeling well other than fatigue. Denies headache, bloody nose, impaired vision, neuropathy, cough or shortness of breath. He did take Benadryl 50 mg PO and Tylenol at home as well this morning. Updated Visit, August 23, 2020: Kodi is 55 yo and felt great following his 1st 4 weeks of Rituximab for Waldenstrom's Macroglobulinemia but now has a profound recurrence of symptoms. We discussed treatment options of continuing Rituxan for 4 additional weekly doses which will be weeks 17-20 (Starting 09/23/2020 for 4 weeks). He has right inguinal hernia repair planned 09/15/2020 and we will commence treatment after. We can consider a short course of maintenance or add Ibrutinib in the future for relapsing symptoms. He has appointments September 08, 2020 for repeat labs which he will keep. We also discussed consideration of other causes of fatigue but he responded so nicely previously with reversal of symptoms that this is the most likely cause. Updated Visit, July 17, 2020: Kodi returns on Rituxan single agent for Waldenstrom's M. He has seemed to regain strength and energy and feels he is almost back to normal. We will finish his current course and at return of symptoms, we will add Ibrutinib to his second line. Updated Visit, June 10, 2020: Kodi is 55 years old and returns after having his first dose of Rituxan during which he had a pretty significant infusion reaction and was unable to complete the full dose. Following this, last week he got weak and hot at work and felt like he was going to pass out. He ended up sleeping for a whole day, then got COVID testing (was negative) and two days later he had recovered. Unsure the etiology. He presents for his second dose today. Fatigue is unchanged. Updated Visit, May 27, 2020: Kodi is 55 yo and has Waldenstrom's macroglobulinemia. He comes in earlier than scheduled and is frustrated that his symptoms of fatigue and neuropathy are worse. He has elected to proceed with treatment using single agent Rituxan. Updated Visit, April 08, 2020: Kodi returns with his girlfriend to review his bone marrow biopsy results. Findings are consistent with Waldenstrom Macroglobulinemia. MYD88 +, Serum viscosity was 1.7. I cannot fully explain his neuropathy and will obtain Anti MAG antibodies. Updated Visit, March 24, 2020: Kodi is 55 yo and has what appears to have a primary bone marrow process that is concerning for either an IgM plasma cell disorder or a Lymphoplasmacytic lymphoma or Waldenstrom disease. He has numbness everywhere (and some tingling) mostly numbness seems to be getting worse over the past few months. He has no other clear causes. He may have some benefit from B12 supplementation, but will need a bone marrow biopsy to fully assess. Initial Visit, March 10, 2020: Kodi Rivas presents today Hematology and Oncology evaluation. He is a 55 year old male who presents for workup of anemia and elevated protein levels. 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 He is currently very fatigued despite being on CPAP for sleep apnea and he also has some depression related to the passing of his 3 years ago in a car accident. He had a CT scan due to the weight loss that showed a pancreatic abnormality but overall negative study. He had an EGD and EUS which is unremarkable per his report. He also reports a prior history of pancreatitis in 2010. His last colonoscopy was in 2018 or 19 reported that it was clear that I see is also had a history of an adenomatous polyp. He had a serum protein immunologic pheresis obtained which came back abnormal. Labs from 03/03/2020 as follows CBC: 5.6 > 12.7/37.7 < 239, MCV 88.5, RDW 12.9, slightly decreased lymphocytes. Since findings show immunofixation demonstrating IgM monoclonal protein with kappa light chain specificity. Quantitative IgM 335 mg/dL IgG and IgA while decreased are within normal limits. Ferritin 30, B12 526, FT4 0.78, TSH 0.37, free T3 2 0.30, no clinically significant abnormalities on CMP with normal creatinine and normal calcium. REVIEW OF SYSTEMS Per HPI and otherwise negative by full review of organ systems. ECOG PERFORMANCE STATUS: 0 PHYSICAL EXAMINATION: Vitals: BP 131/78 Pulse 79 Temp (Src) 97.4 (Temporal) Resp 16 Ht 5' 9.528 (1.77m) Wt 173 lb 1 oz (78.5kg) SpO2 99% BMI 25.17 kg/(m^2). Body surface area is 1.96 meters squared. Exam limited to gross visualization where appropriate. Gen.: This is an age-appropriate patient in no acute distress. Head: Appears atraumatic with no visible lesions. Eyes: Pupils equally round and reactive to light, extraocular muscles are intact. Neck: Supple. Healing surgical wound on right neck. Respiratory: Appears to be respiring comfortably. Neurologic: Nonfocal to gross visualization. Alert and oriented 3. Psychiatric: No evidence of inappropriate anxiety or depression. Skin: Visible areas of skin without rash, lesions, wounds or petechiae. ALLERGIES: ALLERGIES Allergen Reactions Allopurinol Unknown Doxycycline GI Upset Other Reaction(s): Gastrointestinal Upset Tetanus And Diphthe* Anaphylaxis Atorvastatin Other: See Comments Hydrocodone Other: See Comments Other Reaction(s): Unknown Reaction Metoclopramide Other: See Comments, Unknown Other Reaction(s): Mental Status Change, panic attack, Unknown Other reaction(s): Mental Status Change Other Reaction(s): Mental Status Change Other Reaction(s): Hallucinating Reglan [Metoclopram* Mental Status Change Tetnus [Tetanus Vac* Anaphylaxis MEDICATIONS: acetaminophen (TYLENOL EXTRA STRENGTH) 500 mg tablet^Take 500 mg by mouth every 8 hours as needed.^Disp: ^Rfl: Ibuprofen 200 mg cap^Take by mouth every 6 hours as needed.^Disp: ^Rfl: multivitamin tablet^Take 1 tablet by mouth once daily.^Disp: ^Rfl: amLODIPine (NORVASC) 10 mg tablet^Take 10 mg by mouth once daily.^Disp: ^Rfl: albuterol HFA (PROVENTIL HFA, VENTOLIN HFA) 90 mcg/actuation inhaler^INHALE 2 PUFFS BY MOUTH NEEDED^Disp: ^Rfl: sildenafil (VIAGRA) 100 mg tablet^Take 100 mg by mouth as needed.^Disp: ^Rfl: Benazepril HCl 40 mg tablet^Take 40 mg by mouth once daily.^Disp: ^Rfl: sertraline (ZOLOFT) 100 mg tablet^Take 100 mg by mouth twice daily. ^Disp: ^Rfl: METFORMIN HCL (METFORMIN ORAL)^Take 500 mg by mouth once daily.^Disp: ^Rfl: OMEPRAZOLE (PRILOSEC ORAL)^Take 20 mg by mouth once daily.^Disp: ^Rfl: LORATADINE (CLARITIN ORAL)^Take 10 mg by mouth as needed.^Disp: ^Rfl: gabapentin (NEURONTIN) 100 mg capsule^Take 1 capsule by mouth daily at bedtime for 180 days.^Disp: 90 capsule^Rfl: 1 LABORATORY VALUES: WBC (k/uL) Date Value 09/17/2024 6.91 RBC (m/uL) Date Value 09/17/2024 4.74 Hemoglobin (g/dL) Date Value 09/17/2024 14.4 Hematocrit (%) Date Value 09/17/2024 41.7 MCV (fL) Date Value 09/17/2024 88.0 MCH (pg) Date Value 09/17/2024 30.4 MCHC (g/dL) Date Value 09/17/2024 34.5 RDW-CV (%) Date Value 09/17/2024 12.7 Platelet Count (k/uL) Date Value 09/17/2024 269 MPV (fL) Date Value 09/17/2024 9.6 Glucose (mg/dL) Date Value 09/17/2024 160 (H) BUN (mg/dL) Date Value 09/17/2024 24 Creatinine (mg/dL) Date Value 09/17/2024 0.86 Sodium (mmol/L) Date Value 09/17/2024 138 Potassium (mmol/L) Date Value 09/17/2024 4.3 Chloride (mmol/L) Date Value 09/17/2024 103 CO2 (mmol/L) Date Value 09/17/2024 24 Protein, Total (g/dL) Date Value 09/17/2024 6.6 Albumin (g/dL) Date Value 09/17/2024 4.4 Calcium, Total (mg/dL) Date Value 09/17/2024 9.4 Alkaline Phosphatase (U/L) Date Value 09/17/2024 99 Bilirubin, Total (mg/dL) Date Value 09/17/2024 0.3 AST (U/L) Date Value 09/17/2024 9 (L) ALT (U/L) Date Value 09/17/2024 12 M-Protein Concentration Date Value 08/13/2024 0.00 g/dL 07/24/2024 0.00 g/dL 04/17/2024 0.00 g/dL 01/10/2024 0.00 g/dL 10/18/2023 0.00 g/dL 11/04/2021 0.21 gm/dL 07/19/2021 0.19 gm/dL 06/24/2021 0.17 gm/dL 03/18/2021 0.19 gm/dL 12/16/2020 0.24 gm/dL DIAGNOSIS: (C88.00) Waldenstrom macroglobulinemia (primary encounter diagnosis) (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, 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) (R53.81, R53.83) Malaise and fatigue PAST MEDICAL HISTORY Diagnosis Date Acid reflux Depression Diabetes (HCC) Elevated blood protein High blood pressure High cholesterol Sleep apnea Waldenstrom macroglobulinemia 05/21/2020 PAST SURGICAL HISTORY Procedure Laterality Date COLONOSCOPY 2014 EGD PAST SURGICAL HISTORY OF 09/2014 rotator cuff right shoulder PAST SURGICAL HISTORY OF 2012 umbilical hernia PAST SURGICAL HISTORY OF 05/2015 tubes in ear as an adult Social History Tobacco Use Smoking status: Every Day Current packs/day: 0.00 Average packs/day: 1 pack/day for 25.0 years (25.0 ttl pk-yrs) Types: Cigarettes Start date: 03/08/1993 Last attempt to quit: 03/08/2018 Years since quittin.5 Passive exposure: Current Smokeless tobacco: Never Tobacco comments: quit 2018 Vaping Use Vaping status: Former Substance Use Topics Alcohol use: Not Currently Drug use: Not Currently FAMILY HISTORY Problem Relation Age of Onset Diabetes Mother living other (heart disease [Other]) Father Stroke Mother Multiple Sclerosis Sister I spent a total of 30 minutes on the date of service which included preparing to see the patient, [id number] patient care, completing clinical documentation, performing a medically appropriate examination, counseling and educating the patient/family/caregiver, ordering medications, tests, or procedures, independently interpreting results (not separately reported), communicating results to the patient/family/caregiver, and care coordination (not separately reported). Joon Piper MD, CPE Hematology and Oncology Services Provided at: [place], [place] Scribe Attestation: This note was scribed by Beverley Burleson on September 17, 2024 under the direction and supervision of Dr. Joon Piper. I attest that all of the information documented is correct to the best of my knowledge. Provider Attestation: I, Joon Piper MD, attest that all information documented by the above scribe is correct, and was supervised by me and under my direction. CC: Dr. Evan Eugene [address] [facility] [address] [address]. Joby Mays documented in this encounter [facility] 09-17-2024 Note [facility] 09-10-2024 History of Present illness Narrative Images from the original note were not included. NAME: Kodi Rivas [employer] NO.: [id number] DATE OF SERVICE: September 10, 2024 (Vandana) Some elements in this clinic note that are critical to medical decision making have been carefully reviewed and included from a prior clinic note dated: August 27, 2024 (Rachael) Referring Provider: Dr. Harrison Mays CC: Follow up ASSESSMENT: 1. Waldenstrom macroglobulinemia 59 year old gentleman with IgM kappa monoclonal gammopathy and anemia with fatigue. Dx'd with Waldenstrom Macroglobulinemia. Anti MAG ab's were negative. His symptoms of fatigue improved since starting Rituxan and completing the first 4 weeks. We then treated him successfully again week 17 through as his symptoms returned and completed therapy early 2020. Symptoms of Waldenstrom's returned with fatigue and paresthesias of skin March 2023. - resolved again after re-challenge with rituxan. Returned again July 2024 His neuropathy is improving. PLAN: Proceed with week 3 Rituxan today Return in 1 week for cycle 4 and labs Consider maintenance Rituxan q 8 weeks following initial 4 doses HPI: CASE HISTORY: Reverse Chronological Order 08/20/2024- Rituxan weeky x 4 04/18/2023 - Rituxan re-challenge 08/05/2021 - MRI Liver: Two right hepatic lobe hemangiomas correspond to the abnormalities on prior CT. No metastatic disease in the abdomen. 07/19/2021 - CT Chest: No evidence of intrathoracic lymphadenopathy. Streaky scarring/discoid atelectasis in bilateral lower lobes. Mild emphysematous changes of the lungs. 07/19/2021 - CT A/P: Indeterminate enhancing hepatic foci measuring 2.9 cm. Differential diagnosis includes hemangioma, focal nodular hyperplasia and other hypervascular neoplasm. Consider further evaluation via PET scan or MRI. No evidence of splenomegaly or intra-abdominal/pelvic lymphadenopathy. 09/23/2020-10/21/2020 - Rituxan weekly X 4 rechallenge 05/27/2020-06/24/2020 - Rituxan x 4 weekly Updated Visit, September 10, 2024: Kodi returns for Rituxan #3. He missed his treatment last week due to having Covid. Still with some congestion but feeling better. After 2 rituxans his fatigue is better and tingling also improved. Updated Visit, August 27, 2024: Patient returns today with his , Anisha. Patient states that his fatigue and soreness has improved a little bit since his first dose of Rituxan. His neuropathy also has improved a little bit. Patient will receive week 2 of Rituxan today. Patient did get approved for inspire implant for sleep apnea. Has a good appetite. No bowel or bladder issues. No nausea or vomiting. Updated Visit, July 31, 2024: Kodi returns with his , Anisha. He endorses increasing fatigue & soreness, cramping, and neuropathy in his legs. His labs are normal overall. He did have a somewhat increased A1C at last check - neuropathy may be an AE of insulin resistance. We discussed resuming treatment with a BTK inhibitor or Rituxan. He prefers Rituxan due to concern of potential BTK inhibitor side effects. Will plan for a q 8 week maintenance regimen of Rituxan following the initial 4 weekly doses. Will draw testosterone levels also for fatigue. He mentions he is up to date on his vaccines. He is considering the Inspire implant for sleep apnea. Updated Visit, May 08, 2024: Kodi returns for follow up. Boil right chest/breast area for a few weeks. It keeps growing. It is tender and red. No drainage yet. Has a derm appointment . His neuropathy is the same. No new pain. Updated Visit, January 17, 2024: Kodi returns today with Anisha, he is feeling good overall. Neuropathy has improved and he has not needed Neurontin as often. He does complain of joint pain but attributes it to getting older. Labs look good, glucose is a little high. Will consider additional Rituxan after next visit based on symptoms. Updated Visit, October 24, 2023: Kodi returns with Anisha, he reports feeling good today. His M spike is 0. Not adding Rituxan. They are going on a cruise soon and will be gone a few weeks - sailing out of [place]. They are driving the whole way. Updated Visit, August 02, 2023: Says he feels really good. Anisha notice that he's not napping any longer. Officially retired. M-spike 0. Had a cold recently and WBC is elevated. Updated Visit, May 28, 2023: Feel a little better and not quite as sick feeling. Still gets fatigued. Will reconsider in 3 months. Gets up 2 x each night to void. Will be seeing PCP next month and will discuss. Updated Visit, April 25, 2023: Here with Anisha - interestingly his M-spike resolved prior to starting Rituxan again. No change in symptoms. Updated Visit, April 18, 2023: Kodi Rivas returns for follow-up and to begin Rituxan weekly x4 rechallenge. He denies any fevers, chills, night sweats and signs/symptoms of infection. No bleeding or abnormal bruising. He denies any palpable lumps or bumps. He has had left heel pain for a couple of months. His biggest complaints are fatigue and generalized weakness. He has numbness and tingling in his arms and knees down to feet. Overall, he is doing well and wishes to proceed with treatment as planned. Updated Visit, March 14, 2023: For past two months has been getting progressive fatigue, lost weight, as well losing strength. Sleeps a lot. Worried disease is progressing. Brain fog and forgetfulness have returned. Last Rituxan was October 2020. Paresthesias of skin. Updated Visit, February 09, 2023: Feels good. Reviewed labs with him. No symptoms indicating need for treatment. Slight increase in M-spike Updated Visit, November 09, 2022: Kodi Rivas returns for follow-up. Since his last visit there has been no medical changes. He states that he is feeling good. He has some joint and bone pain which he states is old age . He denies any fatigue. He denies fevers, chills, night sweats and signs/symptoms of infection. No bleeding or abnormal bruising. He offers no new complaints today. Updated Visit, August 11, 2022: Feels good and is going to [place] for his Honeymoon - got July 22, 2022. (Anisha) M-spike continues to be stable. Updated Visit, May 12, 2022: Kodi returns and seems to be doing well. No new symptoms Fatigue stable M-spike decreasing on it's own Updated Visit, February 10, 2022: Kodi Rivas returns for follow-up and to review recent labs. Since his last visit he was diagnosed with colitis. He was seen at [facility]. He developed blood in his stools. He was placed on an antibiotic which is now complete. He denies any unusual pain. He is urinating okay. His weight is stable. He is eating and drinking well. He denies fevers, chills and infections. He has occasional night sweats. He denies bleeding and abnormal bruising. No new palpable lumps or bumps. Overall, today he is feeling well with no new complaints. No new issues, problems or concerns. Updated Visit, November 14, 2021: Weight is recovering and FUO resolved. Labs are stable. Left anterior chest at the 2 O'Clock position from the nipple was a small palpable nodule slightly tender, mobile and less than 1 cm. He will watch to see that this resolve or change. Otherwise he is doing well. He got engaged just before [place] 2021. Updated Visit, August 11, 2021: Kodi Rivas is a 56 year old male seen for Waldenstrom's disease. Recent scans for neck pain and general malaise showed liver lesions confirmed on subsequent MRI to be benign hemangiomas. Symptoms have since resolved. Updated Visit, July 01, 2021: Kodi returns and all laboratory indices are improving. He is losing weight for unknown reason. Has soaking night sweats. Mild fatigue but not unusual for the amount of work he does. This is different than his symptoms associated with WMG. Symptoms not associated with Covid-19 Vaccination. Kendra is with hm today. His late Lorna had introduced them years ago. Updated Visit, April 01, 2021: Kodi is 56 years old and continues to do well following his second course of Rituxan completed in October 2020 for Hunters Laura's macroglobulinemia that presents with fatigue as his primary symptom. Overall he is doing well. However, he is dealing with his left ear drainage is being managed by his primary care physician. He otherwise has no issues. M protein measures 0.19 which is the lowest has been since his initial diagnosis. Updated Visit, December 16, 2020: Kodi is 55 and completed his second 4 week course of Rituxan in mid October 2020. He has regained his energy and is doing well. Additionally, he has started a new relationship and is very happy. Serum / myeloma labs are pending, but counts are stable. Updated Visit, October 21, 2020: Kodi is 55 and returns to finish his last weekly dose of Rituxan weeks 17-20 with a one week delay from last week to recover from allergies that were causing severe itching in the eyes. Most symptoms have resolved. Sleep is really good. This week it seems like his fatigue is a little worse but is likely weather and seasonally related. Updated Visit, September 23, 2020: Patient returns today to rechallenge with weekly Rituxan X 4 after he originally responded well in June with resolution of his anemia and fatigue, but most recently in August his fatigue recurred. We postponed restarting Rituxan until he had his right inguinal repair, which was done on 09/15/[address] Combs at [facility]. He states this procedure went well and he is now recovered. He is feeling well other than fatigue. Denies headache, bloody nose, impaired vision, neuropathy, cough or shortness of breath. He did take Benadryl 50 mg PO and Tylenol at home as well this morning. Updated Visit, August 23, 2020: Kodi is 55 yo and felt great following his 1st 4 weeks of Rituximab for Waldenstrom's Macroglobulinemia but now has a profound recurrence of symptoms. We discussed treatment options of continuing Rituxan for 4 additional weekly doses which will be weeks 17-20 (Starting 09/23/2020 for 4 weeks). He has right inguinal hernia repair planned 09/15/2020 and we will commence treatment after. We can consider a short course of maintenance or add Ibrutinib in the future for relapsing symptoms. He has appointments September 08, 2020 for repeat labs which he will keep. We also discussed consideration of other causes of fatigue but he responded so nicely previously with reversal of symptoms that this is the most likely cause. Updated Visit, July 17, 2020: Kodi returns on Rituxan single agent for Waldenstrom's M. He has seemed to regain strength and energy and feels he is almost back to normal. We will finish his current course and at return of symptoms, we will add Ibrutinib to his second line. Updated Visit, June 10, 2020: Kodi is 55 years old and returns after having his first dose of Rituxan during which he had a pretty significant infusion reaction and was unable to complete the full dose. Following this, last week he got weak and hot at work and felt like he was going to pass out. He ended up sleeping for a whole day, then got COVID testing (was negative) and two days later he had recovered. Unsure the etiology. He presents for his second dose today. Fatigue is unchanged. Updated Visit, May 27, 2020: Kodi is 55 yo and has Waldenstrom's macroglobulinemia. He comes in earlier than scheduled and is frustrated that his symptoms of fatigue and neuropathy are worse. He has elected to proceed with treatment using single agent Rituxan. Updated Visit, April 08, 2020: Kodi returns with his girlfriend to review his bone marrow biopsy results. Findings are consistent with Waldenstrom Macroglobulinemia. MYD88 +, Serum viscosity was 1.7. I cannot fully explain his neuropathy and will obtain Anti MAG antibodies. Updated Visit, March 24, 2020: Kodi is 55 yo and has what appears to have a primary bone marrow process that is concerning for either an IgM plasma cell disorder or a Lymphoplasmacytic lymphoma or Waldenstrom disease. He has numbness everywhere (and some tingling) mostly numbness seems to be getting worse over the past few months. He has no other clear causes. He may have some benefit from B12 supplementation, but will need a bone marrow biopsy to fully assess. Initial Visit, March 10, 2020: Kodi Rivas presents today Hematology and Oncology evaluation. He is a 55 year old male who presents for workup of anemia and elevated protein levels. 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 He is currently very fatigued despite being on CPAP for sleep apnea and he also has some depression related to the passing of his 3 years ago in a car accident. He had a CT scan due to the weight loss that showed a pancreatic abnormality but overall negative study. He had an EGD and EUS which is unremarkable per his report. He also reports a prior history of pancreatitis in 2010. His last colonoscopy was in 2018 or 19 reported that it was clear that I see is also had a history of an adenomatous polyp. He had a serum protein immunologic pheresis obtained which came back abnormal. Labs from 03/03/2020 as follows CBC: 5.6 > 12.7/37.7 < 239, MCV 88.5, RDW 12.9, slightly decreased lymphocytes. Since findings show immunofixation demonstrating IgM monoclonal protein with kappa light chain specificity. Quantitative IgM 335 mg/dL IgG and IgA while decreased are within normal limits. Ferritin 30, B12 526, FT4 0.78, TSH 0.37, free T3 2 0.30, no clinically significant abnormalities on CMP with normal creatinine and normal calcium. REVIEW OF SYSTEMS Per HPI and otherwise negative by full review of organ systems. ECOG PERFORMANCE STATUS: 0 PHYSICAL EXAMINATION: Vitals: BP 129/73 Pulse 66 Temp (Src) 97.8 (Temporal) Resp 18 Ht 5' 9.528 (1.77m) Wt 177 lb 7.5 oz (80.5kg) SpO2 99% BMI 25.81 kg/(m^2). Body surface area is 1.99 meters squared. General: Alert and oriented, no distress, pleasant and cooperative. Heart: Regular, normal S1 and S2, no murmurs, rubs, or gallops Lungs: Clear to auscultation bilaterally Abdomen: Benign Extremities: Feet/ankles without edema, posterior tibial pulses full and symmetrical ALLERGIES: ALLERGIES Allergen Reactions Allopurinol Unknown Doxycycline GI Upset Other Reaction(s): Gastrointestinal Upset Tetanus And Diphthe* Anaphylaxis Atorvastatin Other: See Comments Hydrocodone Other: See Comments Other Reaction(s): Unknown Reaction Metoclopramide Other: See Comments, Unknown Other Reaction(s): Mental Status Change, panic attack, Unknown Other reaction(s): Mental Status Change Other Reaction(s): Mental Status Change Other Reaction(s): Hallucinating Reglan [Metoclopram* Mental Status Change Tetnus [Tetanus Vac* Anaphylaxis MEDICATIONS: gabapentin (NEURONTIN) 100 mg capsule Take 1 capsule by mouth daily at bedtime for 180 days. acetaminophen (TYLENOL EXTRA STRENGTH) 500 mg tablet Take 500 mg by mouth every 8 hours as needed. Ibuprofen 200 mg cap Take by mouth every 6 hours as needed. multivitamin tablet Take 1 tablet by mouth once daily. amLODIPine (NORVASC) 10 mg tablet Take 10 mg by mouth once daily. albuterol HFA (PROVENTIL HFA, VENTOLIN HFA) 90 mcg/actuation inhaler INHALE 2 PUFFS BY MOUTH NEEDED sildenafil (VIAGRA) 100 mg tablet Take 100 mg by mouth as needed. Benazepril HCl 40 mg tablet Take 40 mg by mouth once daily. sertraline (ZOLOFT) 100 mg tablet Take 100 mg by mouth twice daily. METFORMIN HCL (METFORMIN ORAL) Take 500 mg by mouth once daily. OMEPRAZOLE (PRILOSEC ORAL) Take 20 mg by mouth once daily. LORATADINE (CLARITIN ORAL) Take 10 mg by mouth as needed. LABORATORY VALUES: WBC (k/uL) Date Value 09/10/2024 8.47 RBC (m/uL) Date Value 09/10/2024 4.56 Hemoglobin (g/dL) Date Value 09/10/2024 14.2 Hematocrit (%) Date Value 09/10/2024 39.9 MCV (fL) Date Value 09/10/2024 87.5 MCH (pg) Date Value 09/10/2024 31.1 MCHC (g/dL) Date Value 09/10/2024 35.6 RDW-CV (%) Date Value 09/10/2024 12.9 Platelet Count (k/uL) Date Value 09/10/2024 231 MPV (fL) Date Value 09/10/2024 9.6 Glucose (mg/dL) Date Value 09/10/2024 133 (H) BUN (mg/dL) Date Value 09/10/2024 25 (H) Creatinine (mg/dL) Date Value 09/10/2024 0.81 Sodium (mmol/L) Date Value 09/10/2024 139 Potassium (mmol/L) Date Value 09/10/2024 4.3 Chloride (mmol/L) Date Value 09/10/2024 103 CO2 (mmol/L) Date Value 09/10/2024 27 Protein, Total (g/dL) Date Value 09/10/2024 6.6 Albumin (g/dL) Date Value 09/10/2024 4.4 Calcium, Total (mg/dL) Date Value 09/10/2024 9.0 Alkaline Phosphatase (U/L) Date Value 09/10/2024 86 Bilirubin, Total (mg/dL) Date Value 09/10/2024 0.3 AST (U/L) Date Value 09/10/2024 11 (L) ALT (U/L) Date Value 09/10/2024 13 M-Protein Concentration Date Value 08/13/2024 0.00 g/dL 07/24/2024 0.00 g/dL 04/17/2024 0.00 g/dL 01/10/2024 0.00 g/dL 10/18/2023 0.00 g/dL 11/04/2021 0.21 gm/dL 07/19/2021 0.19 gm/dL 06/24/2021 0.17 gm/dL 03/18/2021 0.19 gm/dL 12/16/2020 0.24 gm/dL DIAGNOSIS: (C88.00) Waldenstrom macroglobulinemia (primary encounter diagnosis) Plan: COMPREHENSIVE METABOLIC PANEL, COMPLETE BLOOD COUNT AND DIFFERENTIAL PAST MEDICAL HISTORY Diagnosis Date Acid reflux Depression Diabetes (HCC) Elevated blood protein High blood pressure High cholesterol Sleep apnea Waldenstrom macroglobulinemia 05/21/2020 PAST SURGICAL HISTORY Procedure Laterality Date COLONOSCOPY 2014 EGD PAST SURGICAL HISTORY OF 09/2014 rotator cuff right shoulder PAST SURGICAL HISTORY OF 2012 umbilical hernia PAST SURGICAL HISTORY OF 05/2015 tubes in ear as an adult Social History Tobacco Use Smoking status: Every Day Current packs/day: 0.00 Average packs/day: 1 pack/day for 25.0 years (25.0 ttl pk-yrs) Types: Cigarettes Start date: 03/08/1993 Last attempt to quit: 03/08/2018 Years since quittin.5 Passive exposure: Current Smokeless tobacco: Never Tobacco comments: quit 2018 Vaping Use Vaping status: Former Substance Use Topics Alcohol use: Not Currently Drug use: Not Currently FAMILY HISTORY Problem Relation Age of Onset Diabetes Mother living other (heart disease [Other]) Father Stroke Mother Multiple Sclerosis Sister I spent a total of 23 minutes on the date of the service which included preparing to see the patient, [id number] patient care, completing clinical documentation, performing a medically appropriate examination, counseling and educating the patient/family/caregiver, ordering medications, tests, or procedures, independently interpreting results (not separately reported), communicating results to the patient/family/caregiver, and care coordination (not separately reported). Wanda Rodriguez PA-C Hematology and Oncology Services Provided at: [place], [place] CC: Dr. Evan Eugene [address] [facility] [id number] [address] Joby Mays documented in this encounter [facility] 09-10-2024 Note [facility] 09-01-2024 Telephone encounter Note Patient called to cancel this week's treatment appointment. He states he tested positive for Covid yesterday. Over the weekend had cold/flu like symptoms w/ low grade fever. Offered patient if he would like to speak with Yaneth, patient declined. He states he will just keep 09/10 appt as scheduled. Trini Gusman [facility] 09-01-2024 Miscellaneous Notes Patient called to cancel this week's treatment appointment. He states he tested positive for Covid yesterday. Over the weekend had cold/flu like symptoms w/ low grade fever. Offered patient if he would like to speak with Yaneth, patient declined. He states he will just keep 09/10 appt as scheduled. Trini Gusman documented in this encounter [facility] 08-27-2024 History of Present illness Narrative Images from the original note were not included. NAME: Kodi Rivas [employer] NO.: [id number] DATE OF SERVICE: Aug 27, 2024 (Rachael) Some elements in this clinic note that are critical to medical decision making have been carefully reviewed and included from a prior clinic note dated: July 31, 2024 (Veronique) Referring Provider: Dr. Harrison Mays CC: Follow up ASSESSMENT: 1. Waldenstrom macroglobulinemia 59 year old gentleman with IgM kappa monoclonal gammopathy and anemia with fatigue. Dx'd with Waldenstrom Macroglobulinemia. Anti MAG ab's were negative. His symptoms of fatigue improved since starting Rituxan and completing the first 4 weeks. We then treated him successfully again week 17 through 20 as his symptoms returned and completed therapy early 2020. Symptoms of Waldenstrom's returned with fatigue and paresthesias of skin March 2023. - resolved again after re-challenge with rituxan. His neuropathy is stable. His labs are stable. We will recheck labs in 11 weeks and see him in 12 weeks. Skin Abscess--He has a skin abscess on his right breast area. Will prescribe doxycycline and have him see surgery for possible I&D PLAN: Proceed with week 2 Rituxan today Return on 09/03/24 for week 3 and labs. RTC on 09/10/2024 with labs and week 4 Rituxan Please see Trinh Consider maintenance Rituxan q 8 weeks following initial 4 doses HPI: CASE HISTORY: Reverse Chronological Order 08/20/2024- Rituxan weeky x 4 04/18/2023 - Rituxan re-challenge 08/05/2021 - MRI Liver: Two right hepatic lobe hemangiomas correspond to the abnormalities on prior CT. No metastatic disease in the abdomen. 07/19/2021 - CT Chest: No evidence of intrathoracic lymphadenopathy. Streaky scarring/discoid atelectasis in bilateral lower lobes. Mild emphysematous changes of the lungs. 07/19/2021 - CT A/P: Indeterminate enhancing hepatic foci measuring 2.9 cm. Differential diagnosis includes hemangioma, focal nodular hyperplasia and other hypervascular neoplasm. Consider further evaluation via PET scan or MRI. No evidence of splenomegaly or intra-abdominal/pelvic lymphadenopathy. 09/23/2020-10/21/2020 - Rituxan weekly X 4 rechallenge 05/27/2020-06/24/2020 - Rituxan x 4 weekly Updated Visit, August 27, 2024: Patient returns today with his , Anisha. Patient states that his fatigue and soreness has improved a little bit since his first dose of Rituxan. His neuropathy also has improved a little bit. Patient will receive week 2 of Rituxan today. Patient did get approved for inspire implant for sleep apnea. Has a good appetite. No bowel or bladder issues. No nausea or vomiting. Updated Visit, July 31, 2024: Kodi returns with his , Anisha. He endorses increasing fatigue & soreness, cramping, and neuropathy in his legs. His labs are normal overall. He did have a somewhat increased A1C at last check - neuropathy may be an AE of insulin resistance. We discussed resuming treatment with a BTK inhibitor or Rituxan. He prefers Rituxan due to concern of potential BTK inhibitor side effects. Will plan for a q 8 week maintenance regimen of Rituxan following the initial 4 weekly doses. Will draw testosterone levels also for fatigue. He mentions he is up to date on his vaccines. He is considering the Inspire implant for sleep apnea. Updated Visit, May 08, 2024: Kodi returns for follow up. Boil right chest/breast area for a few weeks. It keeps growing. It is tender and red. No drainage yet. Has a derm appointment . His neuropathy is the same. No new pain. Updated Visit, January 17, 2024: Koid returns today with Anisha, he is feeling good overall. Neuropathy has improved and he has not needed Neurontin as often. He does complain of joint pain but attributes it to getting older. Labs look good, glucose is a little high. Will consider additional Rituxan after next visit based on symptoms. Updated Visit, October 24, 2023: Kodi returns with Anisha, he reports feeling good today. His M spike is 0. Not adding Rituxan. They are going on a cruise soon and will be gone a few weeks - sailing out of [place]. They are driving the whole way. Updated Visit, August 02, 2023: Says he feels really good. Anisha notice that he's not napping any longer. Officially retired. M-spike 0. Had a cold recently and WBC is elevated. Updated Visit, May 28, 2023: Feel a little better and not quite as sick feeling. Still gets fatigued. Will reconsider in 3 months. Gets up 2 x each night to void. Will be seeing PCP next month and will discuss. Updated Visit, April 25, 2023: Here with Anisha - interestingly his M-spike resolved prior to starting Rituxan again. No change in symptoms. Updated Visit, April 18, 2023: Kodi Rivas returns for follow-up and to begin Rituxan weekly x4 rechallenge. He denies any fevers, chills, night sweats and signs/symptoms of infection. No bleeding or abnormal bruising. He denies any palpable lumps or bumps. He has had left heel pain for a couple of months. His biggest complaints are fatigue and generalized weakness. He has numbness and tingling in his arms and knees down to feet. Overall, he is doing well and wishes to proceed with treatment as planned. Updated Visit, March 14, 2023: For past two months has been getting progressive fatigue, lost weight, as well losing strength. Sleeps a lot. Worried disease is progressing. Brain fog and forgetfulness have returned. Last Rituxan was October 2020. Paresthesias of skin. Updated Visit, February 09, 2023: Feels good. Reviewed labs with him. No symptoms indicating need for treatment. Slight increase in M-spike Updated Visit, November 09, 2022: Kodi Rivas returns for follow-up. Since his last visit there has been no medical changes. He states that he is feeling good. He has some joint and bone pain which he states is old age . He denies any fatigue. He denies fevers, chills, night sweats and signs/symptoms of infection. No bleeding or abnormal bruising. He offers no new complaints today. Updated Visit, August 11, 2022: Feels good and is going to [place] for his Honeymoon - got July 22, 2022. (Anisha) M-spike continues to be stable. Updated Visit, May 12, 2022: Kodi returns and seems to be doing well. No new symptoms Fatigue stable M-spike decreasing on it's own Updated Visit, February 10, 2022: Kodi Rivas returns for follow-up and to review recent labs. Since his last visit he was diagnosed with colitis. He was seen at [facility]. He developed blood in his stools. He was placed on an antibiotic which is now complete. He denies any unusual pain. He is urinating okay. His weight is stable. He is eating and drinking well. He denies fevers, chills and infections. He has occasional night sweats. He denies bleeding and abnormal bruising. No new palpable lumps or bumps. Overall, today he is feeling well with no new complaints. No new issues, problems or concerns. Updated Visit, November 14, 2021: Weight is recovering and FUO resolved. Labs are stable. Left anterior chest at the 2 O'Clock position from the nipple was a small palpable nodule slightly tender, mobile and less than 1 cm. He will watch to see that this resolve or change. Otherwise he is doing well. He got engaged just before 2020. Updated Visit, August 11, 2021: Kodi Rivas is a 56 year old male seen for Waldenstrom's disease. Recent scans for neck pain and general malaise showed liver lesions confirmed on subsequent MRI to be benign hemangiomas. Symptoms have since resolved. Updated Visit, July 01, 2021: Kodi returns and all laboratory indices are improving. He is losing weight for unknown reason. Has soaking night sweats. Mild fatigue but not unusual for the amount of work he does. This is different than his symptoms associated with [facility]. Symptoms not associated with Covid-19 Vaccination. Kendra is with hm today. His late Lorna had introduced them years ago. Updated Visit, April 01, 2021: Kodi is 56 years old and continues to do well following his second course of Rituxan completed in October 2020 for Hunters Laura's macroglobulinemia that presents with fatigue as his primary symptom. Overall he is doing well. However, he is dealing with his left ear drainage is being managed by his primary care physician. He otherwise has no issues. M protein measures 0.19 which is the lowest has been since his initial diagnosis. Updated Visit, December 16, 2020: Kodi is 55 and completed his second 4 week course of Rituxan in mid October 2020. He has regained his energy and is doing well. Additionally, he has started a new relationship and is very happy. Serum / myeloma labs are pending, but counts are stable. Updated Visit, October 21, 2020: Kodi is 55 and returns to finish his last weekly dose of Rituxan weeks 17-20 with a one week delay from last week to recover from allergies that were causing severe itching in the eyes. Most symptoms have resolved. Sleep is really good. This week it seems like his fatigue is a little worse but is likely weather and seasonally related. Updated Visit, September 23, 2020: Patient returns today to rechallenge with weekly Rituxan X 4 after he originally responded well in June with resolution of his anemia and fatigue, but most recently in August his fatigue recurred. We postponed restarting Rituxan until he had his right inguinal repair, which was done on 09/15/[address] Combs at [facility]. He states this procedure went well and he is now recovered. He is feeling well other than fatigue. Denies headache, bloody nose, impaired vision, neuropathy, cough or shortness of breath. He did take Benadryl 50 mg PO and Tylenol at home as well this morning. Updated Visit, August 23, 2020: Kodi is 55 yo and felt great following his 1st 4 weeks of Rituximab for Waldenstrom's Macroglobulinemia but now has a profound recurrence of symptoms. We discussed treatment options of continuing Rituxan for 4 additional weekly doses which will be weeks 17-20 (Starting 09/23/2020 for 4 weeks). He has right inguinal hernia repair planned 09/15/2020 and we will commence treatment after. We can consider a short course of maintenance or add Ibrutinib in the future for relapsing symptoms. He has appointments September 08, 2020 for repeat labs which he will keep. We also discussed consideration of other causes of fatigue but he responded so nicely previously with reversal of symptoms that this is the most likely cause. Updated Visit, July 17, 2020: Kodi returns on Rituxan single agent for Waldenstrom's M. He has seemed to regain strength and energy and feels he is almost back to normal. We will finish his current course and at return of symptoms, we will add Ibrutinib to his second line. Updated Visit, June 10, 2020: Kodi is 55 years old and returns after having his first dose of Rituxan during which he had a pretty significant infusion reaction and was unable to complete the full dose. Following this, last week he got weak and hot at work and felt like he was going to pass out. He ended up sleeping for a whole day, then got COVID testing (was negative) and two days later he had recovered. Unsure the etiology. He presents for his second dose today. Fatigue is unchanged. Updated Visit, May 27, 2020: Kodi is 55 yo and has Waldenstrom's macroglobulinemia. He comes in earlier than scheduled and is frustrated that his symptoms of fatigue and neuropathy are worse. He has elected to proceed with treatment using single agent Rituxan. Updated Visit, April 08, 2020: Kodi returns with his girlfriend to review his bone marrow biopsy results. Findings are consistent with Waldenstrom Macroglobulinemia. MYD88 +, Serum viscosity was 1.7. I cannot fully explain his neuropathy and will obtain Anti MAG antibodies. Updated Visit, March 24, 2020: Kodi is 55 yo and has what appears to have a primary bone marrow process that is concerning for either an IgM plasma cell disorder or a Lymphoplasmacytic lymphoma or Waldenstrom disease. He has numbness everywhere (and some tingling) mostly numbness seems to be getting worse over the past few months. He has no other clear causes. He may have some benefit from B12 supplementation, but will need a bone marrow biopsy to fully assess. Initial Visit, March 10, 2020: Kodi Rivas presents today Hematology and Oncology evaluation. He is a 55 year old male who presents for workup of anemia and elevated protein levels. 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 He is currently very fatigued despite being on CPAP for sleep apnea and he also has some depression related to the passing of his 3 years ago in a car accident. He had a CT scan due to the weight loss that showed a pancreatic abnormality but overall negative study. He had an EGD and EUS which is unremarkable per his report. He also reports a prior history of pancreatitis in 2010. His last colonoscopy was in 2017 or 19 reported that it was clear that I see is also had a history of an adenomatous polyp. He had a serum protein immunologic pheresis obtained which came back abnormal. Labs from 03/03/2020 as follows CBC: 5.6 > 12.7/37.7 < 239, MCV 88.5, RDW 12.9, slightly decreased lymphocytes. Since findings show immunofixation demonstrating IgM monoclonal protein with kappa light chain specificity. Quantitative IgM 335 mg/dL IgG and IgA while decreased are within normal limits. Ferritin 30, B12 526, FT4 0.78, TSH 0.37, free T3 2 0.30, no clinically significant abnormalities on CMP with normal creatinine and normal calcium. REVIEW OF SYSTEMS Per HPI and otherwise negative by full review of organ systems. ECOG PERFORMANCE STATUS: 0 PHYSICAL EXAMINATION: Vitals: BP 118/69 Pulse 69 Temp (Src) 97.6 (Temporal) Resp 18 Ht 5' 9.528 [verified by 2 caregivers with shoes on[ (1.77m) Wt 178 lb 2.1 oz (80.8kg) SpO2 98% BMI 25.91 kg/(m^2). Body surface area is 1.99 meters squared. Exam limited to gross visualization where appropriate. Gen.: This is an age-appropriate patient in no acute distress. Head: Appears atraumatic with no visible lesions. Eyes: Pupils equally round and reactive to light, extraocular muscles are intact. Neck: Supple. Respiratory: Appears to be respiring comfortably. Neurologic: Nonfocal to gross visualization. Alert and oriented 3. Psychiatric: No evidence of inappropriate anxiety or depression. Skin: Visible areas of skin without rash, lesions, wounds or petechiae. ALLERGIES: ALLERGIES Allergen Reactions Allopurinol Unknown Doxycycline GI Upset Other Reaction(s): Gastrointestinal Upset Tetanus And Diphthe* Anaphylaxis Acetaminophen Unknown Other Reaction(s): Unknown Reaction Atorvastatin Other: See Comments Hydrocodone Other: See Comments Other Reaction(s): Unknown Reaction Metoclopramide Other: See Comments, Unknown Other Reaction(s): Mental Status Change, panic attack, Unknown Other reaction(s): Mental Status Change Other Reaction(s): Mental Status Change Other Reaction(s): Hallucinating Reglan [Metoclopram* Mental Status Change Tetnus [Tetanus Vac* Anaphylaxis MEDICATIONS: acetaminophen (TYLENOL EXTRA STRENGTH) 500 mg tablet^Take 500 mg by mouth every 8 hours as needed.^Disp: ^Rfl: Ibuprofen 200 mg cap^Take by mouth every 6 hours as needed.^Disp: ^Rfl: multivitamin tablet^Take 1 tablet by mouth once daily.^Disp: ^Rfl: amLODIPine (NORVASC) 10 mg tablet^Take 10 mg by mouth once daily.^Disp: ^Rfl: albuterol HFA (PROVENTIL HFA, VENTOLIN HFA) 90 mcg/actuation inhaler^INHALE 2 PUFFS BY MOUTH NEEDED^Disp: ^Rfl: sildenafil (VIAGRA) 100 mg tablet^Take 100 mg by mouth as needed.^Disp: ^Rfl: Benazepril HCl 40 mg tablet^Take 40 mg by mouth once daily.^Disp: ^Rfl: sertraline (ZOLOFT) 100 mg tablet^Take 100 mg by mouth twice daily. ^Disp: ^Rfl: METFORMIN HCL (METFORMIN ORAL)^Take 500 mg by mouth once daily.^Disp: ^Rfl: OMEPRAZOLE (PRILOSEC ORAL)^Take 20 mg by mouth once daily.^Disp: ^Rfl: LORATADINE (CLARITIN ORAL)^Take 10 mg by mouth as needed.^Disp: ^Rfl: gabapentin (NEURONTIN) 100 mg capsule^Take 1 capsule by mouth daily at bedtime for 180 days.^Disp: 90 capsule^Rfl: 1 LABORATORY VALUES: WBC (k/uL) Date Value 08/20/2024 9.23 RBC (m/uL) Date Value 08/20/2024 4.52 Hemoglobin (g/dL) Date Value 08/20/2024 13.8 Hematocrit (%) Date Value 08/20/2024 40.2 MCV (fL) Date Value 08/20/2024 88.9 MCH (pg) Date Value 08/20/2024 30.5 MCHC (g/dL) Date Value 08/20/2024 34.3 RDW-CV (%) Date Value 08/20/2024 12.9 Platelet Count (k/uL) Date Value 08/20/2024 226 MPV (fL) Date Value 08/20/2024 9.7 Glucose (mg/dL) Date Value 08/13/2024 123 (H) BUN (mg/dL) Date Value 08/13/2024 24 Creatinine (mg/dL) Date Value 08/13/2024 1.04 Sodium (mmol/L) Date Value 08/13/2024 142 Potassium (mmol/L) Date Value 08/13/2024 4.4 Chloride (mmol/L) Date Value 08/13/2024 105 CO2 (mmol/L) Date Value 08/13/2024 26 Protein, Total (g/dL) Date Value 08/13/2024 6.7 08/13/2024 6.6 Albumin (g/dL) Date Value 08/13/2024 4.4 Calcium, Total (mg/dL) Date Value 08/13/2024 9.2 Alkaline Phosphatase (U/L) Date Value 08/13/2024 88 Bilirubin, Total (mg/dL) Date Value 08/13/2024 0.2 AST (U/L) Date Value 08/13/2024 13 (L) ALT (U/L) Date Value 08/13/2024 14 M-Protein Concentration Date Value 08/13/2024 0.00 g/dL 07/24/2024 0.00 g/dL 04/17/2024 0.00 g/dL 01/10/2024 0.00 g/dL 10/18/2023 0.00 g/dL 11/04/2021 0.21 gm/dL 07/19/2021 0.19 gm/dL 06/24/2021 0.17 gm/dL 03/18/2021 0.19 gm/dL 12/16/2020 0.24 gm/dL DIAGNOSIS: (C88.00) Waldenstrom macroglobulinemia (primary encounter diagnosis) Plan: COMPLETE BLOOD COUNT AND DIFFERENTIAL, COMPREHENSIVE METABOLIC PANEL PAST MEDICAL HISTORY Diagnosis Date Acid reflux Depression Diabetes (HCC) Elevated blood protein High blood pressure High cholesterol Sleep apnea Waldenstrom macroglobulinemia 05/21/2020 PAST SURGICAL HISTORY Procedure Laterality Date COLONOSCOPY 2014 EGD PAST SURGICAL HISTORY OF 09/2014 rotator cuff right shoulder PAST SURGICAL HISTORY OF 2012 umbilical hernia PAST SURGICAL HISTORY OF 05/2015 tubes in ear as an adult Social History Tobacco Use Smoking status: Every Day Current packs/day: 0.00 Average packs/day: 1 pack/day for 25.0 years (25.0 ttl pk-yrs) Types: Cigarettes Start date: 03/08/1993 Last attempt to quit: 03/08/2018 Years since quittin.4 Passive exposure: Current Smokeless tobacco: Never Tobacco comments: quit 2018 Vaping Use Vaping status: Former Substance Use Topics Alcohol use: Not Currently Drug use: Not Currently FAMILY HISTORY Problem Relation Age of Onset Diabetes Mother living other (heart disease [Other]) Father Stroke Mother Multiple Sclerosis Sister Trinh Ramirez APRN, [employer], O[facility] Hematology and Oncology Services Provided at: [place], [place] CC: Dr. Evan Eugene [id number] [facility] [address] [facility] [address] [facility] [address] [address] Joby aMys documented in this encounter [facility] 08-27-2024 Note [facility] 07-31-2024 Instructions Beverley Burleson - 07/31/2024 11:33 AM EDT Labs on 08/13/2024 Plan to start weekly Rituxan x4 on 08/20/2024 RTC on 08/27/2024 Please see Trinh Consider maintenance Rituxan q 8 weeks following initial 4 doses documented in this encounter [facility] 07-31-2024 History of Present illness Narrative Images from the original note were not included. NAME: Kodi Rivas CLINIC NO.: [id number] DATE OF SERVICE: July 31, 2024 (Veronique) Some elements in this clinic note that are critical to medical decision making have been carefully reviewed and included from a prior clinic note dated: May 08, 2024 (Vandana) Referring Provider: Dr. Harrison Mays CC: Follow up ASSESSMENT: 1. Waldenstrom macroglobulinemia 59 year old gentleman with IgM kappa monoclonal gammopathy and anemia with fatigue. Dx'd with Waldenstrom Macroglobulinemia. Anti MAG ab's were negative. His symptoms of fatigue improved since starting Rituxan and completing the first 4 weeks. We then treated him successfully again week 17 through 20 as his symptoms returned and completed therapy early 2020. Symptoms of Waldenstrom's returned with fatigue and paresthesias of skin March 2023. - resolved again after re-challenge with rituxan. His neuropathy is stable. His labs are stable. We will recheck labs in 11 weeks and see him in 12 weeks. Skin Abscess--He has a skin abscess on his right breast area. Will prescribe doxycycline and have him see surgery for possible I&D PLAN: Labs on 08/13/2024 Plan to start weekly Rituxan x4 on 08/20/2024 RTC on 08/27/2024 Please see Trinh Consider maintenance Rituxan q 8 weeks following initial 4 doses HPI: CASE HISTORY: Reverse Chronological Order 04/18/2023 - Rituxan re-challenge 08/05/2021 - MRI Liver: Two right hepatic lobe hemangiomas correspond to the abnormalities on prior CT. No metastatic disease in the abdomen. 07/19/2021 - CT Chest: No evidence of intrathoracic lymphadenopathy. Streaky scarring/discoid atelectasis in bilateral lower lobes. Mild emphysematous changes of the lungs. 07/19/2021 - CT A/P: Indeterminate enhancing hepatic foci measuring 2.9 cm. Differential diagnosis includes hemangioma, focal nodular hyperplasia and other hypervascular neoplasm. Consider further evaluation via PET scan or MRI. No evidence of splenomegaly or intra-abdominal/pelvic lymphadenopathy. 09/23/2020-10/21/2020 - Rituxan weekly X 4 rechallenge 05/27/2020-06/24/2020 - Rituxan x 4 weekly Updated Visit, July 31, 2024: Kodi returns with his , Anisha. He endorses increasing fatigue & soreness, cramping, and neuropathy in his legs. His labs are normal overall. He did have a somewhat increased A1C at last check - neuropathy may be an AE of insulin resistance. We discussed resuming treatment with a BTK inhibitor or Rituxan. He prefers Rituxan due to concern of potential BTK inhibitor side effects. Will plan for a q 8 week maintenance regimen of Rituxan following the initial 4 weekly doses. Will draw testosterone levels also for fatigue. He mentions he is up to date on his vaccines. He is considering the Inspire implant for sleep apnea. Updated Visit, May 08, 2024: Kodi returns for follow up. Boil right chest/breast area for a few weeks. It keeps growing. It is tender and red. No drainage yet. Has a derm appointment . His neuropathy is the same. No new pain. Updated Visit, January 17, 2024: Kodi returns today with Anisha, he is feeling good overall. Neuropathy has improved and he has not needed Neurontin as often. He does complain of joint pain but attributes it to getting older. Labs look good, glucose is a little high. Will consider additional Rituxan after next visit based on symptoms. Updated Visit, October 24, 2023: Kodi returns with Anisha, he reports feeling good today. His M spike is 0. Not adding Rituxan. They are going on a cruise soon and will be gone a few weeks - sailing out of [place]. They are driving the whole way. Updated Visit, August 02, 2023: Says he feels really good. Anisha notice that he's not napping any longer. Officially retired. M-spike 0. Had a cold recently and WBC is elevated. Updated Visit, May 28, 2023: Feel a little better and not quite as sick feeling. Still gets fatigued. Will reconsider in 3 months. Gets up 2 x each night to void. Will be seeing PCP next month and will discuss. Updated Visit, April 25, 2023: Here with Anisha - interestingly his M-spike resolved prior to starting Rituxan again. No change in symptoms. Updated Visit, April 18, 2023: Kodi Rivas returns for follow-up and to begin Rituxan weekly x4 rechallenge. He denies any fevers, chills, night sweats and signs/symptoms of infection. No bleeding or abnormal bruising. He denies any palpable lumps or bumps. He has had left heel pain for a couple of months. His biggest complaints are fatigue and generalized weakness. He has numbness and tingling in his arms and knees down to feet. Overall, he is doing well and wishes to proceed with treatment as planned. Updated Visit, March 14, 2023: For past two months has been getting progressive fatigue, lost weight, as well losing strength. Sleeps a lot. Worried disease is progressing. Brain fog and forgetfulness have returned. Last Rituxan was October 2020. Paresthesias of skin. Updated Visit, February 09, 2023: Feels good. Reviewed labs with him. No symptoms indicating need for treatment. Slight increase in M-spike Updated Visit, November 09, 2022: Kodi Rivas returns for follow-up. Since his last visit there has been no medical changes. He states that he is feeling good. He has some joint and bone pain which he states is old age . He denies any fatigue. He denies fevers, chills, night sweats and signs/symptoms of infection. No bleeding or abnormal bruising. He offers no new complaints today. Updated Visit, August 11, 2022: Feels good and is going to [place] for his Honeymoon - got July 22, 2022. (Anisha) M-spike continues to be stable. Updated Visit, May 12, 2022: Kodi returns and seems to be doing well. No new symptoms Fatigue stable M-spike decreasing on it's own Updated Visit, February 10, 2022: Kodi Rivas returns for follow-up and to review recent labs. Since his last visit he was diagnosed with colitis. He was seen at [facility]. He developed blood in his stools. He was placed on an antibiotic which is now complete. He denies any unusual pain. He is urinating okay. His weight is stable. He is eating and drinking well. He denies fevers, chills and infections. He has occasional night sweats. He denies bleeding and abnormal bruising. No new palpable lumps or bumps. Overall, today he is feeling well with no new complaints. No new issues, problems or concerns. Updated Visit, November 14, 2021: Weight is recovering and FUO resolved. Labs are stable. Left anterior chest at the 2 O'Clock position from the nipple was a small palpable nodule slightly tender, mobile and less than 1 cm. He will watch to see that this resolve or change. Otherwise he is doing well. He got engaged just before 2020. Updated Visit, August 11, 2021: Kodi Rivas is a 56 year old male seen for Waldenstrom's disease. Recent scans for neck pain and general malaise showed liver lesions confirmed on subsequent MRI to be benign hemangiomas. Symptoms have since resolved. Updated Visit, July 01, 2021: Kodi returns and all laboratory indices are improving. He is losing weight for unknown reason. Has soaking night sweats. Mild fatigue but not unusual for the amount of work he does. This is different than his symptoms associated with WMG. Symptoms not associated with Covid-19 Vaccination. Kendra is with hm today. His late Lorna had introduced them years ago. Updated Visit, April 01, 2021: Kodi is 56 years old and continues to do well following his second course of Rituxan completed in October 2020 for Hunters Laura's macroglobulinemia that presents with fatigue as his primary symptom. Overall he is doing well. However, he is dealing with his left ear drainage is being managed by his primary care physician. He otherwise has no issues. M protein measures 0.19 which is the lowest has been since his initial diagnosis. Updated Visit, December 16, 2020: Kodi is 55 and completed his second 4 week course of Rituxan in mid October 2020. He has regained his energy and is doing well. Additionally, he has started a new relationship and is very happy. Serum / myeloma labs are pending, but counts are stable. Updated Visit, October 21, 2020: Kodi is 55 and returns to finish his last weekly dose of Rituxan weeks 17-20 with a one week delay from last week to recover from allergies that were causing severe itching in the eyes. Most symptoms have resolved. Sleep is really good. This week it seems like his fatigue is a little worse but is likely weather and seasonally related. Updated Visit, September 23, 2020: Patient returns today to rechallenge with weekly Rituxan X 4 after he originally responded well in June with resolution of his anemia and fatigue, but most recently in August his fatigue recurred. We postponed restarting Rituxan until he had his right inguinal repair, which was done on 09/15/[address] Combs at [facility]. He states this procedure went well and he is now recovered. He is feeling well other than fatigue. Denies headache, bloody nose, impaired vision, neuropathy, cough or shortness of breath. He did take Benadryl 50 mg PO and Tylenol at home as well this morning. Updated Visit, August 23, 2020: Kodi is 55 yo and felt great following his 1st 4 weeks of Rituximab for Waldenstrom's Macroglobulinemia but now has a profound recurrence of symptoms. We discussed treatment options of continuing Rituxan for 4 additional weekly doses which will be weeks 17-20 (Starting 09/23/2020 for 4 weeks). He has right inguinal hernia repair planned 09/15/2020 and we will commence treatment after. We can consider a short course of maintenance or add Ibrutinib in the future for relapsing symptoms. He has appointments September 08, 2020 for repeat labs which he will keep. We also discussed consideration of other causes of fatigue but he responded so nicely previously with reversal of symptoms that this is the most likely cause. Updated Visit, July 17, 2020: Kodi returns on Rituxan single agent for Waldenstrom's M. He has seemed to regain strength and energy and feels he is almost back to normal. We will finish his current course and at return of symptoms, we will add Ibrutinib to his second line. Updated Visit, June 10, 2020: Kodi is 55 years old and returns after having his first dose of Rituxan during which he had a pretty significant infusion reaction and was unable to complete the full dose. Following this, last week he got weak and hot at work and felt like he was going to pass out. He ended up sleeping for a whole day, then got COVID testing (was negative) and two days later he had recovered. Unsure the etiology. He presents for his second dose today. Fatigue is unchanged. Updated Visit, May 27, 2020: Kodi is 55 yo and has Waldenstrom's macroglobulinemia. He comes in earlier than scheduled and is frustrated that his symptoms of fatigue and neuropathy are worse. He has elected to proceed with treatment using single agent Rituxan. Updated Visit, April 08, 2020: Kodi returns with his girlfriend to review his bone marrow biopsy results. Findings are consistent with Waldenstrom Macroglobulinemia. MYD88 +, Serum viscosity was 1.7. I cannot fully explain his neuropathy and will obtain Anti MAG antibodies. Updated Visit, March 24, 2020: Kodi is 55 yo and has what appears to have a primary bone marrow process that is concerning for either an IgM plasma cell disorder or a Lymphoplasmacytic lymphoma or Waldenstrom disease. He has numbness everywhere (and some tingling) mostly numbness seems to be getting worse over the past few months. He has no other clear causes. He may have some benefit from B12 supplementation, but will need a bone marrow biopsy to fully assess. Initial Visit, March 10, 2020: Kodi Rivas presents today Hematology and Oncology evaluation. He is a 55 year old male who presents for workup of anemia and elevated protein levels. 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 He is currently very fatigued despite being on CPAP for sleep apnea and he also has some depression related to the passing of his 3 years ago in a car accident. He had a CT scan due to the weight loss that showed a pancreatic abnormality but overall negative study. He had an EGD and EUS which is unremarkable per his report. He also reports a prior history of pancreatitis in 2010. His last colonoscopy was in 2017 or 19 reported that it was clear that I see is also had a history of an adenomatous polyp. He had a serum protein immunologic pheresis obtained which came back abnormal. Labs from 03/03/2020 as follows CBC: 5.6 > 12.7/37.7 < 239, MCV 88.5, RDW 12.9, slightly decreased lymphocytes. Since findings show immunofixation demonstrating IgM monoclonal protein with kappa light chain specificity. Quantitative IgM 335 mg/dL IgG and IgA while decreased are within normal limits. Ferritin 30, B12 526, FT4 0.78, TSH 0.37, free T3 2 0.30, no clinically significant abnormalities on CMP with normal creatinine and normal calcium. REVIEW OF SYSTEMS Per HPI and otherwise negative by full review of organ systems. ECOG PERFORMANCE STATUS: 0 PHYSICAL EXAMINATION: Vitals: BP 155/82 Pulse 73 Temp (Src) 97.3 (Temporal) Resp 16 Ht 5' 8.937 (1.75m) Wt 176 lb 9.4 oz (80.1kg) SpO2 99% BMI 26.13 kg/(m^2). Body surface area is 1.97 meters squared. Exam limited to gross visualization where appropriate. Gen.: This is an age-appropriate patient in no acute distress. Head: Appears atraumatic with no visible lesions. Eyes: Pupils equally round and reactive to light, extraocular muscles are intact. Neck: Supple. Respiratory: Appears to be respiring comfortably. Neurologic: Nonfocal to gross visualization. Alert and oriented 3. Psychiatric: No evidence of inappropriate anxiety or depression. Skin: Visible areas of skin without rash, lesions, wounds or petechiae. ALLERGIES: ALLERGIES Allergen Reactions Allopurinol Unknown Reglan [Metoclopram* Mental Status Change Tetnus [Tetanus Vac* Anaphylaxis MEDICATIONS: gabapentin (NEURONTIN) 100 mg capsule Take 1 capsule by mouth daily at bedtime for 180 days. acetaminophen (TYLENOL EXTRA STRENGTH) 500 mg tablet Take 500 mg by mouth every 8 hours as needed. Ibuprofen 200 mg cap Take by mouth every 6 hours as needed. multivitamin tablet Take 1 tablet by mouth once daily. amLODIPine (NORVASC) 10 mg tablet Take 10 mg by mouth once daily. albuterol HFA (PROVENTIL HFA, VENTOLIN HFA) 90 mcg/actuation inhaler INHALE 2 PUFFS BY MOUTH NEEDED sildenafil (VIAGRA) 100 mg tablet Take 100 mg by mouth as needed. Benazepril HCl 40 mg tablet Take 40 mg by mouth once daily. sertraline (ZOLOFT) 100 mg tablet Take 100 mg by mouth twice daily. METFORMIN HCL (METFORMIN ORAL) Take 500 mg by mouth once daily. OMEPRAZOLE (PRILOSEC ORAL) Take 20 mg by mouth once daily. LORATADINE (CLARITIN ORAL) Take 10 mg by mouth as needed. LABORATORY VALUES: WBC (k/uL) Date Value 07/24/2024 6.27 RBC (m/uL) Date Value 07/24/2024 4.59 Hemoglobin (g/dL) Date Value 07/24/2024 14.2 Hematocrit (%) Date Value 07/24/2024 41.3 MCV (fL) Date Value 07/24/2024 90.0 MCH (pg) Date Value 07/24/2024 30.9 MCHC (g/dL) Date Value 07/24/2024 34.4 RDW-CV (%) Date Value 07/24/2024 13.3 Platelet Count (k/uL) Date Value 07/24/2024 234 MPV (fL) Date Value 07/24/2024 9.8 Glucose (mg/dL) Date Value 07/24/2024 132 (H) BUN (mg/dL) Date Value 07/24/2024 21 Creatinine (mg/dL) Date Value 07/24/2024 0.86 Sodium (mmol/L) Date Value 07/24/2024 141 Potassium (mmol/L) Date Value 07/24/2024 4.2 Chloride (mmol/L) Date Value 07/24/2024 105 CO2 (mmol/L) Date Value 07/24/2024 26 Protein, Total (g/dL) Date Value 07/24/2024 7.0 07/24/2024 6.8 Albumin (g/dL) Date Value 07/24/2024 4.5 Calcium, Total (mg/dL) Date Value 07/24/2024 9.6 Alkaline Phosphatase (U/L) Date Value 07/24/2024 92 Bilirubin, Total (mg/dL) Date Value 07/24/2024 0.2 AST (U/L) Date Value 07/24/2024 30 ALT (U/L) Date Value 07/24/2024 21 M-Protein Concentration Date Value 07/24/2024 0.00 g/dL 04/17/2024 0.00 g/dL 01/10/2024 0.00 g/dL 10/18/2023 0.00 g/dL 07/26/2023 0.00 g/dL 11/04/2021 0.21 gm/dL 07/19/2021 0.19 gm/dL 06/24/2021 0.17 gm/dL 03/18/2021 0.19 gm/dL 12/16/2020 0.24 gm/dL DIAGNOSIS: (C88.00) Waldenstrom macroglobulinemia (primary encounter diagnosis) Plan: TESTOSTERONE, FREE AND TOTAL, BY EQUILIBRIUM ULTRAFILTRATION MASS SPECTROMETRY (D49.9, 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) Plan: TESTOSTERONE, FREE AND TOTAL, BY EQUILIBRIUM ULTRAFILTRATION MASS SPECTROMETRY (R53.81, R53.83) Malaise and fatigue Plan: TESTOSTERONE, FREE AND TOTAL, BY EQUILIBRIUM ULTRAFILTRATION MASS SPECTROMETRY, VITAMIN B12 (D47.2) Monoclonal gammopathy (C83.00) Malignant lymphoma, lymphoplasmacytic (HCC) Plan: TESTOSTERONE, FREE AND TOTAL, BY EQUILIBRIUM ULTRAFILTRATION MASS SPECTROMETRY, VITAMIN B12, THYROID STIMULATING HORMONE, HEP REMOTE PANEL BL, B2 MICROGLOBULIN, COMPLETE BLOOD COUNT AND DIFFERENTIAL, COMPREHENSIVE METABOLIC PANEL, LACTATE DEHYDROGENASE, PHOSPHORUS INORGANIC, PROTEIN ELECTROPHORESIS SERUM W/INTERP, MONOCLONAL PROTEIN, SERUM (BLOOD), URIC ACID, CALCIUM, IONIZED, KAPPA/KING,FREE,SER, SERUM VISCOSITY PAST MEDICAL HISTORY Diagnosis Date Acid reflux Depression Diabetes (HCC) Elevated blood protein High blood pressure High cholesterol Sleep apnea Waldenstrom macroglobulinemia (HCC) 05/21/2020 PAST SURGICAL HISTORY Procedure Laterality Date COLONOSCOPY 2014 EGD PAST SURGICAL HISTORY OF 09/2014 rotator cuff right shoulder PAST SURGICAL HISTORY OF 2012 umbilical hernia PAST SURGICAL HISTORY OF 05/2015 tubes in ear as an adult Social History Tobacco Use Smoking status: Every Day Current packs/day: 0.00 Average packs/day: 1 pack/day for 25.0 years (25.0 ttl pk-yrs) Types: Cigarettes Start date: 03/08/1993 Last attempt to quit: 03/08/2018 Years since quittin.4 Passive exposure: Current Smokeless tobacco: Never Tobacco comments: quit 2017 Vaping Use Vaping status: Former Substance Use Topics Alcohol use: Not Currently Drug use: Not Currently FAMILY HISTORY Problem Relation Age of Onset Diabetes Mother living other (heart disease [Other]) Father Stroke Mother Multiple Sclerosis Sister I spent a total of 30 minutes on the date of service which included preparing to see the patient, [id number] patient care, completing clinical documentation, obtaining and/or reviewing separately obtained history, performing a medically appropriate examination, counseling and educating the patient/family/caregiver, ordering medications, tests, or procedures, independently interpreting results (not separately reported), communicating results to the patient/family/caregiver, and care coordination (not separately reported). Joon Piper MD, CPE Hematology and Oncology Services Provided at: [place], [place] Scribe Attestation: This note was scribed by Beverley Burleson on July 31, 2024 under the direction and supervision of Dr. Joon Piper. I attest that all of the information documented is correct to the best of my knowledge. Provider Attestation: I, Joon Piper MD, attest that all information documented by the above scribe is correct, and was supervised by me and under my direction. CC: Dr. Evan Eugene [id number] [facility] [address] [address] Joby Mays documented in this encounter [facility] 07-31-2024 Note [facility] 07-14-2024 History of Present illness Narrative Allergies as of 07/14/2024 - Reviewed 07/01/2024 Allergen Reaction Noted Allopurinol 09/10/2013 Doxycycline 06/23/2024 [id number] pertussis Anaphylaxis 06/07/1966 Acetaminophen 06/23/2024 Amlodipine Unknown 02/13/2024 Hydrocodone 06/23/2024 Metoclopramide 07/08/2013 Statins 06/07/2023 Tetanus toxoids 02/13/2024 Past Medical History: Diagnosis Date Anemia Anxiety Asthma ([facility]) Controlled type 2 diabetes mellitus without complication, without long-term current use of insulin ([facility]) 07/22/2013 Assessment: BG WNL Plan: continue metformin, continue to monitor CSF leak 07/27/2016 Assessment: no drainage from the right ear Plan: EVD clamped after 8:30, monitor for drainage, check manual pressure tomorrow and if ICP WNL, SA drain can be removed. Depression ([facility]) Depressive disorder ([facility]) 07/22/2013 Dysfunction of left eustachian tube 03/18/2024 Encephalocele ([facility]) 07/27/2016 Procedure(s): 1. Right middle cranial fossa approach for CSF leak repair and cauterization of encephalocele 2. Intraoperative placement of lumbar SA drain 3. Placement of split thickness bone graft with Hydroset over bone defect in temporal bone 4. Placement of Duragen inlay and pericranial flap onlay after intradural explora Essential hypertension ([facility]) 07/22/2013 Lumbago with sciatica, left side 03/18/2024 Lumbar spondylosis 03/18/2024 Neck pain on left side 07/08/2013 Osteoarthritis of knee 03/18/2024 Otorrhea 03/18/2024 Sleep apnea Type II diabetes mellitus ([facility]) Waldenstrom macroglobulinemia ([facility]) Current Outpatient Medications: albuterol HFA 90 mcg/act inhaler, , Disp: , Rfl: amLODIPine (Norvasc) 5 MG tablet, 1 (one) time each day at the same time., Disp: , Rfl: benazepril (Lotensin) 40 MG tablet, Take 40 mg by mouth in the morning., Disp: , Rfl: gabapentin (Neurontin) 100 MG capsule, Take 100 mg by mouth at bedtime., Disp: , Rfl: loratadine (Claritin Reditabs) 5 MG tablet dispersible dissolvable tablet, Take 10 mg by mouth if needed, Disp: , Rfl: metFORMIN (Glucophage) 500 MG tablet, 1 (one) time each day at the same time., Disp: , Rfl: Mometasone Furoate (Asmanex HFA) 100 MCG/ACT aerosol, Inhale 2 (two) times a day, Disp: , Rfl: Multiple Vitamin (Multi-Vitamin) tablet, Take 1 tablet by mouth in the morning., Disp: , Rfl: omeprazole (PriLOSEC) [address] capsule, Take 40 mg by mouth in the morning. Take before meals. Do not crush or chew.., Disp: , Rfl: sertraline (Zoloft) 100 MG tablet, every 12 (twelve) hours., Disp: , Rfl: sildenafil (Viagra) 100 MG tablet, , Disp: , Rfl: Symbicort 160-4.5 MCG/ACT inhaler, Inhale 2 puffs Daily, Disp: , Rfl: Past Surgical History: Procedure Laterality Date COLONOSCOPY 01/2024 ROTATOR CUFF REPAIR Social History Socioeconomic History Marital status: Spouse name: Not on file Number of children: Not on file Years of education: Not on file Highest education level: Not on file Occupational History Not on file Tobacco Use Smoking status: Every Day Types: Cigarettes Smokeless tobacco: Never Substance and Sexual Activity Alcohol use: Yes Alcohol/week: 2.0 - 3.0 standard drinks of alcohol Types: 2 - 3 Standard drinks or equivalent per week Comment: caffeine: 2-3 cups per day Drug use: Not on file Sexual activity: Not on file Other Topics Concern Not on file Social History Narrative Not on file Social Determinants of Health Financial Resource Strain: Not on file Food Insecurity: No Food Insecurity (06/24/2024) Received from [facility] Hunger Screening Within the past 12 months we worried whether our food would run out before we got money to buy more.: Never True Within the past 12 months the food we bought just didn't last and we didn't have money to get more.: Never True Transportation Needs: Not on file Physical Activity: Not on file Stress: Not on file Social Connections: Not on file Intimate Partner Violence: Not on file Housing Stability: Not on file Subjective Patient ID: HPI Patient presents today following drug-induced sleep endoscopy. At the time of the procedure, a least 80 percent of his airway obstruction secondary to posterior tongue movement and about 100 percent at the level of soft palate. Virtually no lateral wall movement was noted. This makes him a good candidate for inspire. Review of Systems ROS The specialty specific review of systems is noncontributory except for that recorded in the intake questionnaire and /or described in the history of present illness. Objective ENT Physical Exam Physical Exam Constitutional: Appearance: Normal appearance. HENT: Head: Atraumatic. Ears: External ear shows no abnormality Bilateral ear canals are clear Tympanic membranes intact, no evidence of middle ear fluid or other pathology. Nose: External nose appears to be normal Nares patent. Septal deviation to the right No evidence of polyp, mass or pus bilaterally. Oral Cavity: No evidence of trismus Lips appear normal Dental good Tongue of normal size and configuration, floor of mouth mucosa clear. Buccal mucosa shows no evidence of ulceration, mass or other abnormality Hard palate soft palate mucosa intact with no evidence of mass, ulceration or other abnormality Uvula of normal size and configuration Oropharynx: Tonsils small Posterior pharyngeal wall lower Neck: No evidence of palpable abnormality Thyroid without evidence of thyromegaly or mass. No cervical lymphadenopathy present. Cardiovascular: Rate and Rhythm: Normal rate and regular rhythm. . Skin: General: Skin is warm and dry. Neurological: General: No focal deficit present. Mental Status: alert and oriented to person, place, and time. Assessment/Plan Subjective Patient ID: HPI Review of Systems ROS The specialty specific review of systems is noncontributory except for that recorded in the intake questionnaire and /or described in the history of present illness. Objective ENT Physical Exam Physical Exam Constitutional: Appearance: Normal appearance. HENT: Head: Atraumatic. Ears: External ear shows no abnormality Bilateral ear canals are clear Tympanic membranes intact, no evidence of middle ear fluid or other pathology. Nose: External nose appears to be normal Nares patent. Septal deviation to the No evidence of polyp, mass or pus bilaterally. Oral Cavity: No evidence of trismus Lips appear normal Dental Tongue of normal size and configuration, floor of mouth mucosa clear. Buccal mucosa shows no evidence of ulceration, mass or other abnormality Hard palate soft palate mucosa intact with no evidence of mass, ulceration or other abnormality Uvula of normal size and configuration Oropharynx: Tonsils Posterior pharyngeal wall Neck: No evidence of palpable abnormality Thyroid without evidence of thyromegaly or mass. No cervical lymphadenopathy present. Cardiovascular: Rate and Rhythm: Normal rate and regular rhythm. . Skin: General: Skin is warm and dry. Neurological: General: No focal deficit present. Mental Status: alert and oriented to person, place, and time. Assessment/Plan Kodi was seen today for sleep apnea. Diagnoses and all orders for this visit: Obstructive sleep apnea (Primary) Comments: Patient is a good candidate for the inspire hypoglossal nerve stimulator and he would like to proceed. Intolerance of continuous positive airway pressure (CPAP) ventilation Comments: See above The risks and benefits of implantation of a hypoglossal nerve stimulator(Inspire or similar device)were discussed with the patient. These include but are not limited to bleeding, infection, poor cosmetic outcome, scaring, need for further surgery, neurovascular injury, difficulty speaking or eating, damage to the marginal mandibular nerve, pneumothorax, need for a chest tube, need to explant the device, etc. The patient has consented to proceed. We will petition the insurance company to see if they will pay for this, call him if they do and get him scheduled. documented in this encounter [facility] 07-01-2024 Miscellaneous Notes ----- Message from Dr. Mejia Saravia MD sent at 06/30/2024 9:01 AM EDT ----- Regarding: Pathology Please let patient know pathology report showed ruptured epidermoid cyst, benign. No further follow-up needed. Thank you ----- Message ----- From: Interface - Lab Results/Orders In Sent: 06/27/2024 2:19 PM EDT To: Mejia Saravia MD documented in this encounter [facility] 07-01-2024 Telephone encounter Note ----- Message from Dr. Mejia Saravia MD sent at 06/30/2024 9:01 AM EDT ----- Regarding: Pathology Please let patient know pathology report showed ruptured epidermoid cyst, benign. No further follow-up needed. Thank you ----- Message ----- From: Interface - Lab Results/Orders In Sent: 06/27/2024 2:19 PM EDT To: Mejia Saravia MD [facility] 06-30-2024 History of Present illness Narrative mmm documented in this encounter [facility] 06-24-2024 History of Present illness Narrative Images from the original note were not included. Chief Complaint: Infected epidermoid cyst History of Present Illness: Kodi Rivas is a 59 y.o. male with infected epidermoid cyst. It is located on his right chest above his nipple. He 1st noticed redness, pain, swelling and tenderness a few weeks ago. He saw his fire prevention officer, prescribed him doxycycline and referred him to us. Since being on antibiotics, the pain and tenderness has improved. It remains red and swollen. Interval update 02/22/2024 He is here today for follow-up. He is status post I&D of infected epidermoid cyst. He is here today for excision of ruptured epidermoid cyst. No further complaints today. HPI Review of Systems Constitutional: Negative for fever and chills. Respiratory: Negative for shortness of breath. Cardiovascular: Negative for chest pain and palpitations. Gastrointestinal: Negative for nausea, vomiting and abdominal pain. Genitourinary: Negative for dysuria and difficulty urinating. Skin: Positive for color change. Negative for rash and wound. Right chest infected epidermoid cyst Allergic/Immunologic: Negative for immunocompromised state. Neurological: Negative for weakness and light-headedness. Hematological: Does not bruise/bleed easily. Psychiatric/Behavioral: Negative for behavioral problems and confusion. Past Medical History: Diagnosis Date Acid reflux Depression Diabetes ([facility]) Elevated blood protein HTN (hypertension) Hyperlipidemia Multiple myeloma ([facility]) Sleep apnea Waldenstrom macroglobulinemia ([facility]) Past Surgical History: Procedure Laterality Date BRAIN SURGERY 2016 [facility] COLONOSCOPY COLONOSCOPY DIAGNOSTIC / SCREENING N/A 01/28/2024 Performed by Lazara Palacios DO at [facility] ESOPHAGOGASTRODUODENOSCOPY ESOPHAGOGASTRODUODENOSCOPY DIAGNOSTIC N/A 01/28/2024 Performed by Lazara Palacios DO at [facility] HERNIA REPAIR Right 2020 BI-LATERAL INGUINAL- DR COMBS DID RIGHT SIDE LAST ROTATOR CUFF REPAIR Right UMBILICAL HERNIA REPAIR Allergies Allergen Reactions Tetanus And Diphtheria Toxoids Anaphylaxis Atorvastatin muscle cramps EXPERIENCES FATIGUE WELL Metoclopramide Other reaction(s): Mental Status Change Current Outpatient Medications: albuterol (PROVENTIL HFA;VENTOLIN HFA) 90 mcg/actuation inhaler, Inhale 2 puffs daily as needed., Disp: , Rfl: amLODIPine (NORVASC) 5 mg tablet, Take 1 tablet (5 mg total) by mouth respiratory nightly., Disp: , Rfl: benazepriL (LOTENSIN) 40 MG tablet, Take 1 tablet (40 mg total) by mouth respiratory nightly., Disp: , Rfl: budesonide (PULMICORT) 0.25 mg/2 mL nebulizer solution, Inhale 2 mL (0.25 mg total) by nebulization once daily., Disp: , Rfl: budesonide-formoteroL (SYMBICORT) 160-4.5 mcg/actuation inhaler, Inhale 2 puffs in the morning and 2 puffs before bedtime., Disp: , Rfl: gabapentin (NEURONTIN) 100 mg capsule, Take 1 capsule (100 mg total) by mouth as needed., Disp: , Rfl: metFORMIN (GLUCOPHAGE) 500 mg tablet, Take 1 tablet (500 mg total) by mouth respiratory nightly., Disp: , Rfl: rqnjegpqbvrh-Rl-yswi-minerals tablet, Take 1 tablet by mouth respiratory nightly., Disp: , Rfl: omeprazole (PriLOSEC) 40 mg capsule, Take 1 capsule (40 mg total) by mouth in the morning., Disp: 30 capsule, Rfl: 1 sertraline (ZOLOFT) 100 mg tablet, Take 2 tablets (200 mg total) by mouth respiratory nightly., Disp: , Rfl: CEPHalexin (KEFLEX) 500 mg capsule, Take 1 capsule (500 mg total) by mouth 3 (three) times a day. (Patient not taking: Reported on 06/24/2024), Disp: , Rfl: Social History Socioeconomic History Marital status: Spouse name: Not on file Number of children: Not on file Years of education: Not on file Highest education level: Not on file Occupational History Not on file Tobacco Use Smoking status: Every Day Current packs/day: 1.00 Average packs/day: 1 pack/day for 30.0 years (30.0 ttl pk-yrs) Types: Cigarettes Smokeless tobacco: Never Vaping Use Vaping status: Never Used Substance and Sexual Activity Alcohol use: Yes Comment: occasionally Drug use: Yes Types: Medical Marijuana Sexual activity: Yes Partners: Female Other Topics Concern Not on file Social History Narrative Not on file Social Determinants of Health Financial Resource Strain: Not on file Food Insecurity: No Food Insecurity (06/24/2024) Hunger Screening Food Insecurity - Worry: Never True Food Insecurity - Inability: Never True Transportation Needs: Not on file Physical Activity: Not on file Stress: Not on file Social Connections: Not on file Interpersonal Safety: Not on file Housing Instability: Not on file Family History Problem Relation Age of Onset Stroke Mother Heart disease Mother Dementia Mother Hypertension Father Heart disease Father Physical Exam Vitals reviewed. Constitutional: Appearance: Normal appearance. HENT: Head: Normocephalic and atraumatic. Eyes: Pupils: Pupils are equal, round, and reactive to light. Cardiovascular: Rate and Rhythm: Normal rate. Pulmonary: Effort: Pulmonary effort is normal. Abdominal: General: There is no distension. Palpations: Abdomen is soft. Tenderness: There is no abdominal tenderness. Musculoskeletal: General: No swelling. Skin: General: Skin is warm and dry. Comments: I&D site partially healed Neurological: Mental Status: He is alert and oriented to person, place, and time. Mental status is at baseline. Psychiatric: Mood and Affect: Mood normal. Behavior: Behavior normal. Vital Signs: Blood pressure 171/83, pulse 77, height 175.3 cm (5' 9 ), weight 79.8 kg (176 lb). Respiratory Source: No data recorded Admission Weight: Weight: 79.8 kg (176 lb) Labs: Lab Results Component Value Date WBC 17.1 (H) 01/26/2022 HGB 15.0 01/26/2022 HCT 43.7 01/26/2022 MCV 88 01/26/2022 PLT 280 01/26/2022 Lab Results Component Value Date GLU 112 (H) 01/26/2022 CALCIUM 9.2 01/26/2022 K 3.8 01/26/2022 CO2 25 01/26/2022 CL 101 01/26/2022 BUN 18 01/26/2022 CREATININE 0.77 01/26/2022 No results found for: AMYLASE Lab Results Component Value Date LIPASE 31 01/26/2022 Lab Results Component Value Date ALT 21 01/26/2022 AST 16 01/26/2022 ALKPHOS 92 01/26/2022 Lab Results Component Value Date INR 1.1 01/26/2022 PROTIME 12.4 01/26/2022 In office procedure Consent was obtained The area was prepped and draped in the usual sterile fashion. An elliptical incision was made overlying remainder of ruptured epidermoid cyst. This was deepened through the skin and subcutaneous tissue. The ruptured cyst was completely excised. Hemostasis was assured. The skin was reapproximated using interrupted deep dermal 3-0 Vicryl suture. Steri-Strips were applied. Assessment: Kodi Rivas is a 59 y.o.male with infected epidermoid cyst status post I&D. Here today for excision Epidermoid cyst of skin of chest [L72.0] Plan: Excision of ruptured epidermoid cyst performed under local today Follow up pathology Evaluation included: Preparing to see the patient (e.g., review of tests) Obtaining and/or reviewing separately obtained history Performing a medically appropriate examination and/or evaluation Counseling and educating the patient/family/caregiver Referring and communicating with other health veterinarian laboratory animal care Mejia Saravia MD [facility] General Surgery [place] documented in this encounter [facility] 05-16-2024 Miscellaneous Notes ----- Message from Dr. Mejia Saravia MD sent at 05/16/2024 1:05 PM EDT ----- Regarding: RE: Vomiting from Doxycycline He can stop it, does not need another one ----- Message ----- From: Ekaterina Herrera CMA Sent: 05/16/2024 11:50 AM EDT To: Mejia Saravia MD; GOPAL Johnson Subject: Vomiting from Doxycycline Hello, I received a call from patient's spouse stating he has been vomiting while taking doxycycline. Patient would like you to prescribe him another antibiotic. Does he need to be on another antibiotic? Please respond to Erna as I will be out of the office for the rest of the day. Please advise. Thank you, ekaterina Called patient to inform him of Dr. Saravia's recommendations. Unable to make contact with patient, left voicemail message stating Dr. Saravia's recommendations and to call the office back if he had any questions. documented in this encounter [facility] 05-16-2024 Telephone encounter Note ----- Message from Dr. Mejia Saravia MD sent at 05/16/2024 1:05 PM EDT ----- Regarding: RE: Vomiting from Doxycycline He can stop it, does not need another one ----- Message ----- From: Ekaterina Herrera CMA Sent: 05/16/2024 11:50 AM EDT To: Mejia Saravia MD; GOPAL Johnson Subject: Vomiting from Doxycycline Hello, I received a call from patient's spouse stating he has been vomiting while taking doxycycline. Patient would like you to prescribe him another antibiotic. Does he need to be on another antibiotic? Please respond to Erna as I will be out of the office for the rest of the day. Please advise. Thank you, ekaterina [facility] 05-16-2024 Telephone encounter Note Called patient to inform him of Dr. Saravia's recommendations. Unable to make contact with patient, left voicemail message stating Dr. Saravia's recommendations and to call the office back if he had any questions. [facility] 05-14-2024 Telephone encounter Note Called Dr Palacios office. Patient was seen at their office yesterday 05/[address] Saravia and has follow up scheduled with him on 06/24. Their office will be faxing over Dr Saravia office note from patients 05/13 visit to our office sometime today. Мария Khan [facility] 05-14-[address] Palacios office. Patient was seen at their office yesterday 05/[address] Saravia and has follow up scheduled with him on 06/24. Their office will be faxing over Dr Saravia office note from patients 05/13 visit to our office sometime today. Мария Khan Records faxed to Dr. Palacios. Jocelin: Information ready for you. Мария Khan Please refer patient to [facility]. They should call the patient to schedule after review of records. Thank you Jocelin, Please fax records Jorge Luis, Please follow up on this appt. documented in this encounter [facility] 05-13-2024 History of Present illness Narrative Images from the original note were not included. Chief Complaint: Infected epidermoid cyst History of Present Illness: Kodi Rivas is a 59 y.o. male with infected epidermoid cyst. It is located on his right chest above his nipple. He 1st noticed redness, pain, swelling and tenderness a few weeks ago. He saw his fire prevention officer, prescribed him doxycycline and referred him to us. Since being on antibiotics, the pain and tenderness has improved. It remains red and swollen. HPI Review of Systems Constitutional: Negative for fever and chills. Respiratory: Negative for shortness of breath. Cardiovascular: Negative for chest pain and palpitations. Gastrointestinal: Negative for nausea, vomiting and abdominal pain. Genitourinary: Negative for dysuria and difficulty urinating. Skin: Positive for color change. Negative for rash and wound. Right chest infected epidermoid cyst Allergic/Immunologic: Negative for immunocompromised state. Neurological: Negative for weakness and light-headedness. Hematological: Does not bruise/bleed easily. Psychiatric/Behavioral: Negative for behavioral problems and confusion. Past Medical History: Diagnosis Date Acid reflux Depression Diabetes ([facility]) Elevated blood protein HTN (hypertension) Hyperlipidemia Multiple myeloma ([facility]) Sleep apnea Waldenstrom macroglobulinemia ([facility]) Past Surgical History: Procedure Laterality Date BRAIN SURGERY 2016 [facility] COLONOSCOPY COLONOSCOPY DIAGNOSTIC / SCREENING N/A 01/28/2024 Performed by Lazara Palacios DO at [facility] ESOPHAGOGASTRODUODENOSCOPY ESOPHAGOGASTRODUODENOSCOPY DIAGNOSTIC N/A 01/28/2024 Performed by Lazara Palacios DO at [facility] HERNIA REPAIR Right 2019 BI-LATERAL INGUINAL- DR COMBS DID RIGHT SIDE LAST ROTATOR CUFF REPAIR Right UMBILICAL HERNIA REPAIR Allergies Allergen Reactions Tetanus And Diphtheria Toxoids Anaphylaxis Atorvastatin muscle cramps EXPERIENCES FATIGUE WELL Metoclopramide Other reaction(s): Mental Status Change Current Outpatient Medications: amLODIPine (NORVASC) 5 mg tablet, Take 1 tablet (5 mg total) by mouth respiratory nightly., Disp: , Rfl: ASMANEX TWISTHALER 110 mcg/ actuation (30) inhaler, Inhale 1 puff once daily., Disp: , Rfl: benazepriL (LOTENSIN) 40 MG tablet, Take 1 tablet (40 mg total) by mouth respiratory nightly., Disp: , Rfl: budesonide (PULMICORT) 0.25 mg/2 mL nebulizer solution, Inhale 2 mL (0.25 mg total) by nebulization once daily., Disp: , Rfl: doxycycline (VIBRA-TABS) 100 mg tablet, Take 1 tablet (100 mg total) by mouth in the morning and 1 tablet (100 mg total) before bedtime., Disp: , Rfl: gabapentin (NEURONTIN) 100 mg capsule, Take 1 capsule (100 mg total) by mouth as needed., Disp: , Rfl: metFORMIN (GLUCOPHAGE) 500 mg tablet, Take 1 tablet (500 mg total) by mouth respiratory nightly., Disp: , Rfl: gndpulqzrdgj-Zr-iiuw-minerals tablet, Take 1 tablet by mouth respiratory nightly., Disp: , Rfl: omeprazole (PriLOSEC) 40 mg capsule, Take 1 capsule (40 mg total) by mouth in the morning., Disp: 30 capsule, Rfl: 1 sertraline (ZOLOFT) 100 mg tablet, Take 2 tablets (200 mg total) by mouth respiratory nightly., Disp: , Rfl: Social History Socioeconomic History Marital status: Spouse name: Not on file Number of children: Not on file Years of education: Not on file Highest education level: Not on file Occupational History Not on file Tobacco Use Smoking status: Every Day Current packs/day: 1.00 Average packs/day: 1 pack/day for 30.0 years (30.0 ttl pk-yrs) Types: Cigarettes Smokeless tobacco: Never Vaping Use Vaping status: Never Used Substance and Sexual Activity Alcohol use: Yes Comment: occasionally Drug use: Yes Types: Medical Marijuana Sexual activity: Yes Partners: Female Other Topics Concern Not on file Social History Narrative Not on file Social Determinants of Health Financial Resource Strain: Not on file Food Insecurity: No Food Insecurity (05/13/2024) Hunger Screening Food Insecurity - Worry: Never True Food Insecurity - Inability: Never True Transportation Needs: Not on file Physical Activity: Not on file Stress: Not on file Social Connections: Not on file Interpersonal Safety: Not on file Housing Instability: Not on file Family History Problem Relation Age of Onset Stroke Mother Heart disease Mother Dementia Mother Hypertension Father Heart disease Father Physical Exam Vitals reviewed. Constitutional: Appearance: Normal appearance. HENT: Head: Normocephalic and atraumatic. Eyes: Pupils: Pupils are equal, round, and reactive to light. Cardiovascular: Rate and Rhythm: Normal rate. Pulmonary: Effort: Pulmonary effort is normal. Abdominal: General: There is no distension. Palpations: Abdomen is soft. Tenderness: There is no abdominal tenderness. Musculoskeletal: General: No swelling. Skin: General: Skin is warm and dry. Comments: Right chest infected epidermoid cyst, I&D performed in the office Neurological: Mental Status: He is alert and oriented to person, place, and time. Mental status is at baseline. Psychiatric: Mood and Affect: Mood normal. Behavior: Behavior normal. Vital Signs: Blood pressure 142/70, pulse 68, height 175.3 cm (5' 9 ), weight 79.4 kg (175 lb). Respiratory Source: No data recorded Admission Weight: Weight: 79.4 kg (175 lb) Labs: Lab Results Component Value Date WBC 17.1 (H) 01/26/2022 HGB 15.0 01/26/2022 HCT 43.7 01/26/2022 MCV 88 01/26/2022 PLT 280 01/26/2022 Lab Results Component Value Date GLU 112 (H) 01/26/2022 CALCIUM 9.2 01/26/2022 K 3.8 01/26/2022 CO2 25 01/26/2022 CL 101 01/26/2022 BUN 18 01/26/2022 CREATININE 0.77 01/26/2022 No results found for: AMYLASE Lab Results Component Value Date LIPASE 31 01/26/2022 Lab Results Component Value Date ALT 21 01/26/2022 AST 16 01/26/2022 ALKPHOS 92 01/26/2022 Lab Results Component Value Date INR 1.1 01/26/2022 PROTIME 12.4 01/26/2022 In office procedure Consent was obtained The area was prepped and draped in the usual sterile fashion. A transverse incision was made overlying the area of greatest fluctuance. Immediately purulent drainage was encountered and drained. All loculations were broken down. The wound was packed with quarter-inch iodoform strips. Dressing was applied. Assessment: Kodi Rivas is a 59 y.o.male with infected epidermoid cyst No primary diagnosis found. Plan: Incision and drainage performed in the office today Change packing once daily Follow-up in 6-8 weeks Evaluation included: Preparing to see the patient (e.g., review of tests) Obtaining and/or reviewing separately obtained history Performing a medically appropriate examination and/or evaluation Counseling and educating the patient/family/caregiver Referring and communicating with other health veterinarian laboratory animal care Mejia Saravia MD [facility] General [facility] [place] documented in this encounter [facility] 05-08-2024 Telephone encounter Note Records faxed to Dr. Palacios. [facility] 05-08-2024 Telephone encounter Note Jocelin: Information ready for you. Мария Khan [facility] 05-08-2024 Telephone encounter Note Please refer patient to josé miguel Love. They should call the patient to schedule after review of records. Thank you Jocelin, Please fax records Jorge Luis, Please follow up on this appt. [facility] 05-08-2024 History of Present illness Narrative Images from the original note were not included. NAME: Kodi Rivas [employer] NO.: [id number] DATE OF SERVICE: May 08, 2024 (Vandana) (Elements copied from Dr. Piper's note dated January 17, 2024, have been reviewed and updated where appropriate, and all reflect current assessment and medical decision making during today's encounter, May 08, 2024) Referring Provider: Dr. Harrison Ball CC: Follow up ASSESSMENT: 1. Waldenstrom macroglobulinemia 59 year old gentleman with IgM kappa monoclonal gammopathy and anemia with fatigue. Dx'd with Waldenstrom Macroglobulinemia. Anti MAG ab's were negative. His symptoms of fatigue improved since starting Rituxan and completing the first 4 weeks. We then treated him successfully again week 17 through 20 as his symptoms returned and completed therapy early 2020. Symptoms of Waldenstrom's returned with fatigue and paresthesias of skin March 2023. - resolved again after re-challenge with rituxan. His neuropathy is stable. His labs are stable. We will recheck labs in 11 weeks and see him in 12 weeks. Skin Abscess--He has a skin abscess on his right breast area. Will prescribe doxycycline and have him see surgery for possible I&D HPI: CASE HISTORY: Reverse Chronological Order 04/18/2023 - Rituxan re-challenge 08/05/2021 - MRI Liver: Two right hepatic lobe hemangiomas correspond to the abnormalities on prior CT. No metastatic disease in the abdomen. 07/19/2021 - CT Chest: No evidence of intrathoracic lymphadenopathy. Streaky scarring/discoid atelectasis in bilateral lower lobes. Mild emphysematous changes of the lungs. 07/19/2021 - CT A/P: Indeterminate enhancing hepatic foci measuring 2.9 cm. Differential diagnosis includes hemangioma, focal nodular hyperplasia and other hypervascular neoplasm. Consider further evaluation via PET scan or MRI. No evidence of splenomegaly or intra-abdominal/pelvic lymphadenopathy. 09/23/2020-10/21/2020 - Rituxan weekly X 4 rechallenge 05/27/2020-06/24/2020 - Rituxan x 4 weekly Updated Visit, May 08, 2024: Kodi returns for follow up. Boil right chest/breast area for a few weeks. It keeps growing. It is tender and red. No drainage yet. Has a derm appointment . His neuropathy is the same. No new pain. Updated Visit, January 17, 2024: Kodi returns today with Anisha, he is feeling good overall. Neuropathy has improved and he has not needed Neurontin as often. He does complain of joint pain but attributes it to getting older. Labs look good, glucose is a little high. Will consider additional Rituxan after next visit based on symptoms. Updated Visit, October 24, 2023: Kodi returns with Anisha, he reports feeling good today. His M spike is 0. Not adding Rituxan. They are going on a cruise soon and will be gone a few weeks - sailing out of [place]. They are driving the whole way. Updated Visit, August 02, 2023: Says he feels really good. Anisha notice that he's not napping any longer. Officially retired. M-spike 0. Had a cold recently and WBC is elevated. Updated Visit, May 28, 2023: Feel a little better and not quite as sick feeling. Still gets fatigued. Will reconsider in 3 months. Gets up 2 x each night to void. Will be seeing PCP next month and will discuss. Updated Visit, April 25, 2023: Here with Anisha - interestingly his M-spike resolved prior to starting Rituxan again. No change in symptoms. Updated Visit, April 18, 2023: Kodi Rivas returns for follow-up and to begin Rituxan weekly x4 rechallenge. He denies any fevers, chills, night sweats and signs/symptoms of infection. No bleeding or abnormal bruising. He denies any palpable lumps or bumps. He has had left heel pain for a couple of months. His biggest complaints are fatigue and generalized weakness. He has numbness and tingling in his arms and knees down to feet. Overall, he is doing well and wishes to proceed with treatment as planned. Updated Visit, March 14, 2023: For past two months has been getting progressive fatigue, lost weight, as well losing strength. Sleeps a lot. Worried disease is progressing. Brain fog and forgetfulness have returned. Last Rituxan was October 2020. Paresthesias of skin. Updated Visit, February 09, 2023: Feels good. Reviewed labs with him. No symptoms indicating need for treatment. Slight increase in M-spike Updated Visit, November 09, 2022: Kodi Rivas returns for follow-up. Since his last visit there has been no medical changes. He states that he is feeling good. He has some joint and bone pain which he states is old age . He denies any fatigue. He denies fevers, chills, night sweats and signs/symptoms of infection. No bleeding or abnormal bruising. He offers no new complaints today. Updated Visit, August 11, 2022: Feels good and is going to [place] for his Honeymoon - got July 22, 2022. (Anisha) M-spike continues to be stable. Updated Visit, May 12, 2022: Kodi returns and seems to be doing well. No new symptoms Fatigue stable M-spike decreasing on it's own Updated Visit, February 10, 2022: Kodi Rivas returns for follow-up and to review recent labs. Since his last visit he was diagnosed with colitis. He was seen at [facility]. He developed blood in his stools. He was placed on an antibiotic which is now complete. He denies any unusual pain. He is urinating okay. His weight is stable. He is eating and drinking well. He denies fevers, chills and infections. He has occasional night sweats. He denies bleeding and abnormal bruising. No new palpable lumps or bumps. Overall, today he is feeling well with no new complaints. No new issues, problems or concerns. Updated Visit, November 14, 2021: Weight is recovering and FUO resolved. Labs are stable. Left anterior chest at the 2 O'Clock position from the nipple was a small palpable nodule slightly tender, mobile and less than 1 cm. He will watch to see that this resolve or change. Otherwise he is doing well. He got engaged just before 2020. Updated Visit, August 11, 2021: Kodi Rivas is a 56 year old male seen for Waldenstrom's disease. Recent scans for neck pain and general malaise showed liver lesions confirmed on subsequent MRI to be benign hemangiomas. Symptoms have since resolved. Updated Visit, July 01, 2021: Kodi returns and all laboratory indices are improving. He is losing weight for unknown reason. Has soaking night sweats. Mild fatigue but not unusual for the amount of work he does. This is different than his symptoms associated with WMG. Symptoms not associated with Covid-19 Vaccination. Kendra is with hm today. His late Lorna had introduced them years ago. Updated Visit, April 01, 2021: Kodi is 56 years old and continues to do well following his second course of Rituxan completed in October 2020 for Hunters Laura's macroglobulinemia that presents with fatigue as his primary symptom. Overall he is doing well. However, he is dealing with his left ear drainage is being managed by his primary care physician. He otherwise has no issues. M protein measures 0.19 which is the lowest has been since his initial diagnosis. Updated Visit, December 16, 2020: Kodi is 55 and completed his second 4 week course of Rituxan in mid October 2020. He has regained his energy and is doing well. Additionally, he has started a new relationship and is very happy. Serum / myeloma labs are pending, but counts are stable. Updated Visit, October 21, 2020: Kodi is 55 and returns to finish his last weekly dose of Rituxan weeks 17-20 with a one week delay from last week to recover from allergies that were causing severe itching in the eyes. Most symptoms have resolved. Sleep is really good. This week it seems like his fatigue is a little worse but is likely weather and seasonally related. Updated Visit, September 23, 2020: Patient returns today to rechallenge with weekly Rituxan X 4 after he originally responded well in June with resolution of his anemia and fatigue, but most recently in August his fatigue recurred. We postponed restarting Rituxan until he had his right inguinal repair, which was done on 09/15/[address] Combs at [facility]. He states this procedure went well and he is now recovered. He is feeling well other than fatigue. Denies headache, bloody nose, impaired vision, neuropathy, cough or shortness of breath. He did take Benadryl 50 mg PO and Tylenol at home as well this morning. Updated Visit, August 23, 2020: Kodi is 55 yo and felt great following his 1st 4 weeks of Rituximab for Waldenstrom's Macroglobulinemia but now has a profound recurrence of symptoms. We discussed treatment options of continuing Rituxan for 4 additional weekly doses which will be weeks 17-20 (Starting 09/23/2020 for 4 weeks). He has right inguinal hernia repair planned 09/15/2020 and we will commence treatment after. We can consider a short course of maintenance or add Ibrutinib in the future for relapsing symptoms. He has appointments September 08, 2020 for repeat labs which he will keep. We also discussed consideration of other causes of fatigue but he responded so nicely previously with reversal of symptoms that this is the most likely cause. Updated Visit, July 17, 2020: Kodi returns on Rituxan single agent for Waldenstrom's M. He has seemed to regain strength and energy and feels he is almost back to normal. We will finish his current course and at return of symptoms, we will add Ibrutinib to his second line. Updated Visit, June 10, 2020: Kodi is 55 years old and returns after having his first dose of Rituxan during which he had a pretty significant infusion reaction and was unable to complete the full dose. Following this, last week he got weak and hot at work and felt like he was going to pass out. He ended up sleeping for a whole day, then got COVID testing (was negative) and two days later he had recovered. Unsure the etiology. He presents for his second dose today. Fatigue is unchanged. Updated Visit, May 27, 2020: Kodi is 55 yo and has Waldenstrom's macroglobulinemia. He comes in earlier than scheduled and is frustrated that his symptoms of fatigue and neuropathy are worse. He has elected to proceed with treatment using single agent Rituxan. Updated Visit, April 08, 2020: Kodi returns with his girlfriend to review his bone marrow biopsy results. Findings are consistent with Waldenstrom Macroglobulinemia. MYD88 +, Serum viscosity was 1.7. I cannot fully explain his neuropathy and will obtain Anti MAG antibodies. Updated Visit, March 24, 2020: Kodi is 55 yo and has what appears to have a primary bone marrow process that is concerning for either an IgM plasma cell disorder or a Lymphoplasmacytic lymphoma or Waldenstrom disease. He has numbness everywhere (and some tingling) mostly numbness seems to be getting worse over the past few months. He has no other clear causes. He may have some benefit from B12 supplementation, but will need a bone marrow biopsy to fully assess. Initial Visit, March 10, 2020: Kodi Rivas presents today Hematology and Oncology evaluation. He is a 55 year old male who presents for workup of anemia and elevated protein levels. 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 He is currently very fatigued despite being on CPAP for sleep apnea and he also has some depression related to the passing of his 3 years ago in a car accident. He had a CT scan due to the weight loss that showed a pancreatic abnormality but overall negative study. He had an EGD and EUS which is unremarkable per his report. He also reports a prior history of pancreatitis in 2010. His last colonoscopy was in 2018 or 19 reported that it was clear that I see is also had a history of an adenomatous polyp. He had a serum protein immunologic pheresis obtained which came back abnormal. Labs from 03/03/2020 as follows CBC: 5.6 > 12.7/37.7 < 239, MCV 88.5, RDW 12.9, slightly decreased lymphocytes. Since findings show immunofixation demonstrating IgM monoclonal protein with kappa light chain specificity. Quantitative IgM 335 mg/dL IgG and IgA while decreased are within normal limits. Ferritin 30, B12 526, FT4 0.78, TSH 0.37, free T3 2 0.30, no clinically significant abnormalities on CMP with normal creatinine and normal calcium. REVIEW OF SYSTEMS Per HPI and otherwise negative by full review of organ systems. ECOG PERFORMANCE STATUS: 0 PHYSICAL EXAMINATION: Vitals: BP 137/74 Pulse 87 Temp (Src) 97.3 (Temporal) Resp 18 Ht 5' 8.937 (1.75m) Wt 176 lb 9.4 oz (80.1kg) SpO2 98% BMI 26.13 kg/(m^2). Body surface area is 1.97 meters squared. General: Alert and oriented, no distress, pleasant and cooperative. Heart: Regular, normal S1 and S2, no murmurs, rubs, or gallops Lungs: Clear to auscultation bilaterally Abdomen: Benign Extremities: Feet/ankles without edema, posterior tibial pulses full and symmetrical Skin: right chest wall/breast with a 2 cm raised, red, firm ascess. No drainage ALLERGIES: ALLERGIES Allergen Reactions Allopurinol Unknown Reglan [Metoclopram* Mental Status Change Tetnus [Tetanus Vac* Anaphylaxis MEDICATIONS: gabapentin (NEURONTIN) 100 mg capsule Take 1 capsule by mouth daily at bedtime for 180 days. acetaminophen (TYLENOL EXTRA STRENGTH) 500 mg tablet Take 500 mg by mouth every 8 hours as needed. Ibuprofen 200 mg cap Take by mouth every 6 hours as needed. multivitamin tablet Take 1 tablet by mouth once daily. amLODIPine (NORVASC) 10 mg tablet Take 10 mg by mouth once daily. albuterol HFA (PROVENTIL HFA, VENTOLIN HFA) 90 mcg/actuation inhaler INHALE 2 PUFFS BY MOUTH NEEDED sildenafil (VIAGRA) 100 mg tablet Take 100 mg by mouth as needed. Benazepril HCl 40 mg tablet Take 40 mg by mouth once daily. sertraline (ZOLOFT) 100 mg tablet Take 100 mg by mouth twice daily. METFORMIN HCL (METFORMIN ORAL) Take 500 mg by mouth once daily. OMEPRAZOLE (PRILOSEC ORAL) Take 20 mg by mouth once daily. LORATADINE (CLARITIN ORAL) Take 10 mg by mouth as needed. LABORATORY VALUES: WBC (k/uL) Date Value 04/17/2024 8.91 RBC (m/uL) Date Value 04/17/2024 4.75 Hemoglobin (g/dL) Date Value 04/17/2024 14.3 Hematocrit (%) Date Value 04/17/2024 42.1 MCV (fL) Date Value 04/17/2024 88.6 MCH (pg) Date Value 04/17/2024 30.1 MCHC (g/dL) Date Value 04/17/2024 34.0 RDW-CV (%) Date Value 04/17/2024 13.2 Platelet Count (k/uL) Date Value 04/17/2024 217 MPV (fL) Date Value 04/17/2024 9.9 Glucose (mg/dL) Date Value 04/17/2024 126 (H) BUN (mg/dL) Date Value 04/17/2024 27 (H) Creatinine (mg/dL) Date Value 04/17/2024 1.02 Sodium (mmol/L) Date Value 04/17/2024 138 Potassium (mmol/L) Date Value 04/17/2024 4.1 Chloride (mmol/L) Date Value 04/17/2024 103 CO2 (mmol/L) Date Value 04/17/2024 26 Protein, Total (g/dL) Date Value 04/17/2024 7.1 04/17/2024 6.6 Albumin (g/dL) Date Value 04/17/2024 4.4 Calcium, Total (mg/dL) Date Value 04/17/2024 9.7 Alkaline Phosphatase (U/L) Date Value 04/17/2024 108 Bilirubin, Total (mg/dL) Date Value 04/17/2024 0.2 AST (U/L) Date Value 04/17/2024 11 (L) ALT (U/L) Date Value 04/17/2024 15 M-Protein Concentration Date Value 04/17/2024 0.00 g/dL 01/10/2024 0.00 g/dL 10/18/2023 0.00 g/dL 07/26/2023 0.00 g/dL 05/18/2023 0.16 g/dL 11/04/2021 0.21 gm/dL 07/19/2021 0.19 gm/dL 06/24/2021 0.17 gm/dL 03/18/2021 0.19 gm/dL 12/16/2020 0.24 gm/dL DIAGNOSIS: (C88.0) Waldenstrom macroglobulinemia (HCC) (primary encounter diagnosis) (E11.42) Type 2 diabetes mellitus with diabetic polyneuropathy, without long-term current use of insulin (HCC) (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, 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00 Total pack years: 25.00 Types: Cigarettes Last attempt to quit: 03/08/2018 Years since quittin.1 Passive exposure: Current Smokeless tobacco: Never Tobacco comments: quit 2018 Vaping Use Vaping Use: Former Substance Use Topics Alcohol use: Not Currently Drug use: Not Currently FAMILY HISTORY Problem Relation Age of Onset Diabetes Mother living other (heart disease [Other]) Father Stroke Mother Multiple Sclerosis Sister Wanda Rodriguez PA-C Hematology and Oncology Services Provided at: [facility], [place], [place] I spent a total of 31 minutes on the date of the service which included preparing to see the patient, [id number] patient care, completing clinical documentation, performing a medically appropriate examination, counseling and educating the patient/family/caregiver, ordering medications, tests, or procedures, independently interpreting results (not separately reported), communicating results to the patient/family/caregiver, and care coordination (not separately reported). CC: Dr. Evan Eugene [address] [facility] [id number] Dr. Joby Mays documented in this encounter [facility] 05-08-2024 Note [facility] 01-31-2024 Miscellaneous Notes ----- Message from Lazara Palacios DO sent at 01/30/2024 2:59 PM EDT ----- Please let patient know that he has esophagitis consistent with reflux and I recommend increasing omeprazole to 40 mg daily for which I sent a prescription to his pharmacy. He should discontinue the 20 mg daily. If his symptoms continue after 40 mg daily then he should double up on that for at least 6 weeks. Also let him know that he had to precancerous tubular adenomas and I recommend repeat surveillance colonoscopy in [address] Carl Spoke with patient regarding pathology results. Patient verbally understood with no further questions. Recall will be put in chart. documented in this encounter [facility] 01-31-2024 Telephone encounter Note ----- Message from Lazara Palacios DO sent at 01/30/2024 2:59 PM EDT ----- Please let patient know that he has esophagitis consistent with reflux and I recommend increasing omeprazole to 40 mg daily for which I sent a prescription to his pharmacy. He should discontinue the 20 mg daily. If his symptoms continue after 40 mg daily then he should double up on that for at least 6 weeks. Also let him know that he had to precancerous tubular adenomas and I recommend repeat surveillance colonoscopy in 5 years unless problems. Thanks, [facility] 01-31-2024 Telephone encounter Note Spoke with patient regarding pathology results. Patient verbally understood with no further questions. Recall will be put in chart. [facility] 01-30-2024 History of Present illness Narrative . documented in this encounter [facility] 01-22-2024 Miscellaneous Notes Preoperative Education Checklist- General Surgery date: 01/28/24 Surgery time: 1045 Arrival time: 0845 1. Bring a photo ID and your insurance card with you the day of surgery. You will check in at the main lobby of the [facility]- registration desk is straight ahead as soon as you walk in. Tell them you are here for surgery. 2. If you have a Living Will/Durable Power of Test Administrator for Health Care that is not on file here, please bring a copy the day of surgery. 3. Please shower/bathe the night before surgery with the provided soap or wipes. Do not shower the morning of surgery- you will do use wipes when you arrive here at the hospital before getting into your surgical gown. Do not shave the area of your procedure for 2 days prior to your surgery. 4. NO powder, lotion, perfume/cologne, aftershave, make-up, deodorant, or hair products after you have bathed. 5. NO nail [place] of [place]/acrylic on at least one finger. If you are having a hand, wrist or foot surgery then all nail [place] of [place] and artificial/acrylic nails must be removed from that hand or foot. 6. Avoid ALL Aspirin and non-steroidal anti-inflammatory drugs and certain vitamins (Ibuprofen, Advil, Aleve, Excedrin, Meloxicam, Celebrex, fish/krill oil, etc.) for 7 days prior to surgery as instructed by your surgeon and/or your prescribing doctor. Tylenol IS ALLOWED. If you are on Ticlid, Xarelto, Eliquis, Pradaxa, Plavix or Coumadin, please check with your prescribing doctor for instructions for when to stop them. 7. If you use an inhaler, continue to use it routinely. 8. Nothing to eat or drink (not even water, gum, mints, or hard candy!) AFTER midnight prior to your surgery. 9. Take only medications that you are instructed to on the morning of surgery with a TINY SIP OF WATER. 10. Choose a responsible adult that will be able to drive you home when you are discharged from your hospital stay for your surgery and can stay with you in your home for 24 hours after your procedure. You must NOT drive any vehicle or operate any machinery for 24 hours after surgery. 11. When you dress for your appointment, please wear loose fitting clothing that is appropriate to accommodate your surgical area procedure. BRING WITH YOU ANY DEVICES YOU MAY NEED: GARETH hose, ice machine, sling/swath, brace or special shoe, oversized zip-up or button up shirt, CPAP machine if staying overnight. 12. Do NOT wear jewelry, watches, or any piercings or metal for surgery- leave these valuables and money at home. 13. Do NOT wear contact lenses for surgery- glasses are okay if needed. 14. The anesthesiologist will talk with you the day of surgery and will ask you to sign a Consent Form. 15. Refrain from smoking or any type of tobacco use for at least 8 hours and marijuana for 24 hours prior to arrival for your surgery. 16. If a GREEN BLOOD band is given to you, please bring it with you for the day of surgery. 17. Notify your surgeon if you develop any illness before your surgery. 18. If you are staying overnight, please DO NOT BRING your home medications with you. 19. If you have any questions prior to surgery, please call the Preadmission Testing office at [phone], Mon.-Fri. 7 a.m.-3 p.m. Leave a voicemail if needed. Pre-Surgery Instructions: Medication Instructions amLODIPine (NORVASC) 5 mg tablet Stop taking 0 days prior to procedure ASMANEX TWISTHALER 110 mcg/ actuation (30) inhaler Stop taking 0 days prior to procedure benazepriL (LOTENSIN) 40 MG tablet Stop taking 0 days prior to procedure budesonide (PULMICORT) 0.25 mg/2 mL nebulizer solution Stop taking 0 days prior to procedure gabapentin (NEURONTIN) 100 mg capsule Stop taking 0 days prior to procedure metFORMIN (GLUCOPHAGE) 500 mg tablet Stop taking 0 days prior to procedure ofegbstwqmpa-Zk-vmef-minerals tablet Stop taking 0 days prior to procedure omeprazole (PriLOSEC) 20 mg capsule Stop taking 0 days prior to procedure sertraline (ZOLOFT) 100 mg tablet Stop taking 0 days prior to procedure sod sulf-pot chloride-mag sulf 1.479-0.188- 0.225 gram tablet Stop taking 0 days prior to procedure documented in this encounter [facility] iPrint 01-22-2024 Nurse Note Preoperative Education Checklist- General Surgery date: 01/28/24 Surgery time: 1045 Arrival time: 0845 1. Bring a photo ID and your insurance card with you the day of surgery. You will check in at the main lobby of the [facility]- registration desk is straight ahead as soon as you walk in. Tell them you are here for surgery. 2. If you have a Living Will/Durable Power of Test Administrator for Health Care that is not on file here, please bring a copy the day of surgery. 3. Please shower/bathe the night before surgery with the provided soap or wipes. Do not shower the morning of surgery- you will do use wipes when you arrive here at the hospital before getting into your surgical gown. Do not shave the area of your procedure for 2 days prior to your surgery. 4. NO powder, lotion, perfume/cologne, aftershave, make-up, deodorant, or hair products after you have bathed. 5. NO nail citizen of [place]/acrylic on at least one finger. If you are having a hand, wrist or foot surgery then all nail citizen of [place] and artificial/acrylic nails must be removed from that hand or foot. 6. Avoid ALL Aspirin and non-steroidal anti-inflammatory drugs and certain vitamins (Ibuprofen, Advil, Aleve, Excedrin, Meloxicam, Celebrex, fish/krill oil, etc.) for 7 days prior to surgery as instructed by your surgeon and/or your prescribing doctor. Tylenol IS ALLOWED. If you are on Ticlid, Xarelto, Eliquis, Pradaxa, Plavix or Coumadin, please check with your prescribing doctor for instructions for when to stop them. 7. If you use an inhaler, continue to use it routinely. 8. Nothing to eat or drink (not even water, gum, mints, or hard candy!) AFTER midnight prior to your surgery. 9. Take only medications that you are instructed to on the morning of surgery with a TINY SIP OF WATER. 10. Choose a responsible adult that will be able to drive you home when you are discharged from your hospital stay for your surgery and can stay with you in your home for 24 hours after your procedure. You must NOT drive any vehicle or operate any machinery for 24 hours after surgery. 11. When you dress for your appointment, please wear loose fitting clothing that is appropriate to accommodate your surgical area procedure. BRING WITH YOU ANY DEVICES YOU MAY NEED: GARETH hose, ice machine, sling/swath, brace or special shoe, oversized zip-up or button up shirt, CPAP machine if staying overnight. 12. Do NOT wear jewelry, watches, or any piercings or metal for surgery- leave these valuables and money at home. 13. Do NOT wear contact lenses for surgery- glasses are okay if needed. 14. The anesthesiologist will talk with you the day of surgery and will ask you to sign a Consent Form. 15. Refrain from smoking or any type of tobacco use for at least 8 hours and marijuana for 24 hours prior to arrival for your surgery. 16. If a GREEN BLOOD band is given to you, please bring it with you for the day of surgery. 17. Notify your surgeon if you develop any illness before your surgery. 18. If you are staying overnight, please DO NOT BRING your home medications with you. 19. If you have any questions prior to surgery, please call the Preadmission Testing office at [phone], Mon.-Fri. 7 a.m.-3 p.m. Leave a voicemail if needed. Pre-Surgery Instructions: Medication Instructions amLODIPine (NORVASC) 5 mg tablet Stop taking 0 days prior to procedure ASMANEX TWISTHALER 110 mcg/ actuation (30) inhaler Stop taking 0 days prior to procedure benazepriL (LOTENSIN) 40 MG tablet Stop taking 0 days prior to procedure budesonide (PULMICORT) 0.25 mg/2 mL nebulizer solution Stop taking 0 days prior to procedure gabapentin (NEURONTIN) 100 mg capsule Stop taking 0 days prior to procedure metFORMIN (GLUCOPHAGE) 500 mg tablet Stop taking 0 days prior to procedure irgvxpwemzmw-Qe-hwnx-minerals tablet Stop taking 0 days prior to procedure omeprazole (PriLOSEC) 20 mg capsule Stop taking 0 days prior to procedure sertraline (ZOLOFT) 100 mg tablet Stop taking 0 days prior to procedure sod sulf-pot chloride-mag sulf 1.479-0.188- 0.225 gram tablet Stop taking 0 days prior to [facility] Miscellaneous Notes TC to patient. Explained that we received a referral for him to be seen by our Palliative Medicine service. Explained our role in managing symptoms related to severe or life limiting illness's and that we provide ongoing support to try and reduce hospitalizations. Patient says his last 3 blood work were good and right now does not feel this is needed. Provided our contact number to schedule at a later time if anything changes or symptom burden increases. Flaca Siu RN January 22, 2024 11:27 AM Palliative Medicine Referral Assessment Referral Accepted: Yes, Location: [place]. Patient current location: Home: Timeframe for schedulin-3 weeks Pall Med appropriate diagnosis: Waldenstrom macroglobulinemia Established with Inpatient Pall Med team: no Reason for consult: MMO insurane referral for [facility], sees [facility]. Routed to Metal Roaster, Flaca Siu to contact patient to explain pall med program and offer scheduling at [facility], if patient accepts. Thank you. Marissa Jade RN January 22, 2024 documented in this encounter [facility] 01-17-2024 Instructions Beverley Ferrari - 01/17/2024 11:04 AM EDT Labs in 11 weeks RTC in 12 weeks Continue low dose Neurontin at night, as needed Will consider additional Rituxan following that visit based on symptoms documented in this encounter [facility] 01-17-2024 History of Present illness Narrative Images from the original note were not included. NAME: Kodi Rivas [employer] NO.: [id number] DATE OF SERVICE: January 17, 2024 (Veronique) Some elements in this clinic note that are critical to medical decision making have been carefully reviewed and included from a prior clinic note dated: October 25, 2023 (Veronique) Referring Provider: Dr. Harrison Mays CC: Follow up ASSESSMENT: 1. Waldenstrom macroglobulinemia 58 year old gentleman with IgM kappa monoclonal gammopathy and anemia with fatigue. Dx'd with Waldenstrom Macroglobulinemia. Anti MAG ab's were negative. His symptoms of fatigue improved since starting Rituxan and completing the first 4 weeks. We then treated him successfully again week 17 through 20 as his symptoms returned and completed therapy early 2020. Symptoms of Waldenstrom's returned with fatigue and paresthesias of skin March 2023. - resolved again after re-challenge with rituxan. PLAN: Labs in 11 weeks RTC in 12 weeks Continue low dose Neurontin at night, as needed Will consider additional Rituxan following that visit based on symptoms HPI: CASE HISTORY: Reverse Chronological Order 04/18/2023 - Rituxan re-challenge 08/05/2021 - MRI Liver: Two right hepatic lobe hemangiomas correspond to the abnormalities on prior CT. No metastatic disease in the abdomen. 07/19/2021 - CT Chest: No evidence of intrathoracic lymphadenopathy. Streaky scarring/discoid atelectasis in bilateral lower lobes. Mild emphysematous changes of the lungs. 07/19/2021 - CT A/P: Indeterminate enhancing hepatic foci measuring 2.9 cm. Differential diagnosis includes hemangioma, focal nodular hyperplasia and other hypervascular neoplasm. Consider further evaluation via PET scan or MRI. No evidence of splenomegaly or intra-abdominal/pelvic lymphadenopathy. 09/23/2020-10/21/2020 - Rituxan weekly X 4 rechallenge 05/27/2020-06/24/2020 - Rituxan x 4 weekly Updated Visit, January 17, 2024: Kodi returns today with Anisha, he is feeling good overall. Neuropathy has improved and he has not needed Neurontin as often. He does complain of joint pain but attributes it to getting older. Labs look good, glucose is a little high. Will consider additional Rituxan after next visit based on symptoms. Updated Visit, October 24, 2023: Kodi returns with Anisha, he reports feeling good today. His M spike is 0. Not adding Rituxan. They are going on a cruise soon and will be gone a few weeks - sailing out of [place]. They are driving the whole way. Updated Visit, August 02, 2023: Says he feels really good. Anisha notice that he's not napping any longer. Officially retired. M-spike 0. Had a cold recently and WBC is elevated. Updated Visit, May 28, 2023: Feel a little better and not quite as sick feeling. Still gets fatigued. Will reconsider in 3 months. Gets up 2 x each night to void. Will be seeing PCP next month and will discuss. Updated Visit, April 25, 2023: Here with Anisha - interestingly his M-spike resolved prior to starting Rituxan again. No change in symptoms. Updated Visit, April 18, 2023: Kodi Rivas returns for follow-up and to begin Rituxan weekly x4 rechallenge. He denies any fevers, chills, night sweats and signs/symptoms of infection. No bleeding or abnormal bruising. He denies any palpable lumps or bumps. He has had left heel pain for a couple of months. His biggest complaints are fatigue and generalized weakness. He has numbness and tingling in his arms and knees down to feet. Overall, he is doing well and wishes to proceed with treatment as planned. Updated Visit, March 14, 2023: For past two months has been getting progressive fatigue, lost weight, as well losing strength. Sleeps a lot. Worried disease is progressing. Brain fog and forgetfulness have returned. Last Rituxan was October 2020. Paresthesias of skin. Updated Visit, February 09, 2023: Feels good. Reviewed labs with him. No symptoms indicating need for treatment. Slight increase in M-spike Updated Visit, November 09, 2022: Kodi Rivas returns for follow-up. Since his last visit there has been no medical changes. He states that he is feeling good. He has some joint and bone pain which he states is old age . He denies any fatigue. He denies fevers, chills, night sweats and signs/symptoms of infection. No bleeding or abnormal bruising. He offers no new complaints today. Updated Visit, August 11, 2022: Feels good and is going to [place] for his Honeymoon - got July 22, 2022. (Anisha) M-spike continues to be stable. Updated Visit, May 12, 2022: Kodi returns and seems to be doing well. No new symptoms Fatigue stable M-spike decreasing on it's own Updated Visit, February 10, 2022: Kodi Rivas returns for follow-up and to review recent labs. Since his last visit he was diagnosed with colitis. He was seen at [facility]. He developed blood in his stools. He was placed on an antibiotic which is now complete. He denies any unusual pain. He is urinating okay. His weight is stable. He is eating and drinking well. He denies fevers, chills and infections. He has occasional night sweats. He denies bleeding and abnormal bruising. No new palpable lumps or bumps. Overall, today he is feeling well with no new complaints. No new issues, problems or concerns. Updated Visit, November 14, 2021: Weight is recovering and FUO resolved. Labs are stable. Left anterior chest at the 2 O'Clock position from the nipple was a small palpable nodule slightly tender, mobile and less than 1 cm. He will watch to see that this resolve or change. Otherwise he is doing well. He got engaged just before 2020. Updated Visit, August 11, 2021: Kodi Rivas is a 56 year old male seen for Waldenstrom's disease. Recent scans for neck pain and general malaise showed liver lesions confirmed on subsequent MRI to be benign hemangiomas. Symptoms have since resolved. Updated Visit, July 01, 2021: Kodi returns and all laboratory indices are improving. He is losing weight for unknown reason. Has soaking night sweats. Mild fatigue but not unusual for the amount of work he does. This is different than his symptoms associated with WMG. Symptoms not associated with Covid-19 Vaccination. Kendra is with hm today. His late Lorna had introduced them years ago. Updated Visit, April 01, 2021: Kodi is 56 years old and continues to do well following his second course of Rituxan completed in October 2020 for Hunters Laura's macroglobulinemia that presents with fatigue as his primary symptom. Overall he is doing well. However, he is dealing with his left ear drainage is being managed by his primary care physician. He otherwise has no issues. M protein measures 0.19 which is the lowest has been since his initial diagnosis. Updated Visit, December 16, 2020: Kodi is 55 and completed his second 4 week course of Rituxan in mid October 2020. He has regained his energy and is doing well. Additionally, he has started a new relationship and is very happy. Serum / myeloma labs are pending, but counts are stable. Updated Visit, October 21, 2020: Kodi is 55 and returns to finish his last weekly dose of Rituxan weeks 17-20 with a one week delay from last week to recover from allergies that were causing severe itching in the eyes. Most symptoms have resolved. Sleep is really good. This week it seems like his fatigue is a little worse but is likely weather and seasonally related. Updated Visit, September 23, 2020: Patient returns today to rechallenge with weekly Rituxan X 4 after he originally responded well in June with resolution of his anemia and fatigue, but most recently in August his fatigue recurred. We postponed restarting Rituxan until he had his right inguinal repair, which was done on 09/15/[address] Combs at [facility]. He states this procedure went well and he is now recovered. He is feeling well other than fatigue. Denies headache, bloody nose, impaired vision, neuropathy, cough or shortness of breath. He did take Benadryl 50 mg PO and Tylenol at home as well this morning. Updated Visit, August 23, 2020: Kodi is 55 yo and felt great following his 1st 4 weeks of Rituximab for Waldenstrom's Macroglobulinemia but now has a profound recurrence of symptoms. We discussed treatment options of continuing Rituxan for 4 additional weekly doses which will be weeks 17-20 (Starting 09/23/2020 for 4 weeks). He has right inguinal hernia repair planned 09/15/2020 and we will commence treatment after. We can consider a short course of maintenance or add Ibrutinib in the future for relapsing symptoms. He has appointments September 08, 2020 for repeat labs which he will keep. We also discussed consideration of other causes of fatigue but he responded so nicely previously with reversal of symptoms that this is the most likely cause. Updated Visit, July 17, 2020: Kodi returns on Rituxan single agent for Waldenstrom's M. He has seemed to regain strength and energy and feels he is almost back to normal. We will finish his current course and at return of symptoms, we will add Ibrutinib to his second line. Updated Visit, June 10, 2020: Kodi is 55 years old and returns after having his first dose of Rituxan during which he had a pretty significant infusion reaction and was unable to complete the full dose. Following this, last week he got weak and hot at work and felt like he was going to pass out. He ended up sleeping for a whole day, then got COVID testing (was negative) and two days later he had recovered. Unsure the etiology. He presents for his second dose today. Fatigue is unchanged. Updated Visit, May 27, 2020: Kodi is 55 yo and has Waldenstrom's macroglobulinemia. He comes in earlier than scheduled and is frustrated that his symptoms of fatigue and neuropathy are worse. He has elected to proceed with treatment using single agent Rituxan. Updated Visit, April 08, 2020: Kodi returns with his girlfriend to review his bone marrow biopsy results. Findings are consistent with Waldenstrom Macroglobulinemia. MYD88 +, Serum viscosity was 1.7. I cannot fully explain his neuropathy and will obtain Anti MAG antibodies. Updated Visit, March 24, 2020: Kodi is 55 yo and has what appears to have a primary bone marrow process that is concerning for either an IgM plasma cell disorder or a Lymphoplasmacytic lymphoma or Waldenstrom disease. He has numbness everywhere (and some tingling) mostly numbness seems to be getting worse over the past few months. He has no other clear causes. He may have some benefit from B12 supplementation, but will need a bone marrow biopsy to fully assess. Initial Visit, March 10, 2020: Kodi Rivas presents today Hematology and Oncology evaluation. He is a 55 year old male who presents for workup of anemia and elevated protein levels. 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 He is currently very fatigued despite being on CPAP for sleep apnea and he also has some depression related to the passing of his 3 years ago in a car accident. He had a CT scan due to the weight loss that showed a pancreatic abnormality but overall negative study. He had an EGD and EUS which is unremarkable per his report. He also reports a prior history of pancreatitis in 2010. His last colonoscopy was in 2017 or 19 reported that it was clear that I see is also had a history of an adenomatous polyp. He had a serum protein immunologic pheresis obtained which came back abnormal. Labs from 03/03/2020 as follows CBC: 5.6 > 12.7/37.7 < 239, MCV 88.5, RDW 12.9, slightly decreased lymphocytes. Since findings show immunofixation demonstrating IgM monoclonal protein with kappa light chain specificity. Quantitative IgM 335 mg/dL IgG and IgA while decreased are within normal limits. Ferritin 30, B12 526, FT4 0.78, TSH 0.37, free T3 2 0.30, no clinically significant abnormalities on CMP with normal creatinine and normal calcium. REVIEW OF SYSTEMS Per HPI and otherwise negative by full review of organ systems. ECOG PERFORMANCE STATUS: 0 PHYSICAL EXAMINATION: Vitals: BP 154/71 Pulse 76 Temp (Src) 97.6 (Temporal) Resp 16 Ht 5' 8.937 (1.75m) Wt 179 lb 0.2 oz (81.2kg) SpO2 95% BMI 26.48 kg/(m^2). Body surface area is 1.99 meters squared. Exam limited to gross visualization where appropriate. Gen.: This is an age-appropriate patient in no acute distress. Looks thinner. Head: Appears atraumatic with no visible lesions. Eyes: Pupils equally round and reactive to light, extraocular muscles are intact. Neck: Supple. Respiratory: Appears to be respiring comfortably. Neurologic: Nonfocal to gross visualization. Alert and oriented 3. Psychiatric: No evidence of inappropriate anxiety or depression. Skin: Visible areas of skin without rash, lesions, wounds or petechiae. ALLERGIES: ALLERGIES Allergen Reactions Allopurinol Unknown Reglan [Metoclopram* Mental Status Change Tetnus [Tetanus Vac* Anaphylaxis MEDICATIONS: acetaminophen (TYLENOL EXTRA STRENGTH) 500 mg tablet Take 500 mg by mouth every 8 hours as needed. Ibuprofen 200 mg cap Take by mouth every 6 hours as needed. multivitamin tablet Take 1 tablet by mouth once daily. amLODIPine (NORVASC) 10 mg tablet Take 10 mg by mouth once daily. albuterol HFA (PROVENTIL HFA, VENTOLIN HFA) 90 mcg/actuation inhaler INHALE 2 PUFFS BY MOUTH NEEDED sildenafil (VIAGRA) 100 mg tablet Take 100 mg by mouth as needed. Benazepril HCl 40 mg tablet Take 40 mg by mouth once daily. sertraline (ZOLOFT) 100 mg tablet Take 100 mg by mouth twice daily. METFORMIN HCL (METFORMIN ORAL) Take 500 mg by mouth once daily. OMEPRAZOLE (PRILOSEC ORAL) Take 20 mg by mouth once daily. LORATADINE (CLARITIN ORAL) Take 10 mg by mouth as needed. gabapentin (NEURONTIN) 100 mg capsule Take 1 capsule by mouth daily at bedtime for 180 days. LABORATORY VALUES: WBC (k/uL) Date Value 01/10/2024 8.39 RBC (m/uL) Date Value 01/10/2024 4.82 Hemoglobin (g/dL) Date Value 01/10/2024 14.5 Hematocrit (%) Date Value 01/10/2024 41.9 MCV (fL) Date Value 01/10/2024 86.9 MCH (pg) Date Value 01/10/2024 30.1 MCHC (g/dL) Date Value 01/10/2024 34.6 RDW-CV (%) Date Value 01/10/2024 13.1 Platelet Count (k/uL) Date Value 01/10/2024 259 MPV (fL) Date Value 01/10/2024 9.8 Glucose (mg/dL) Date Value 01/10/2024 175 (H) BUN (mg/dL) Date Value 01/10/2024 27 (H) Creatinine (mg/dL) Date Value 01/10/2024 1.02 Sodium (mmol/L) Date Value 01/10/2024 142 Potassium (mmol/L) Date Value 01/10/2024 4.3 Chloride (mmol/L) Date Value 01/10/2024 105 CO2 (mmol/L) Date Value 01/10/2024 26 Protein, Total (g/dL) Date Value 01/10/2024 7.1 01/10/2024 6.7 Albumin (g/dL) Date Value 01/10/2024 4.6 Calcium, Total (mg/dL) Date Value 01/10/2024 10.2 Alkaline Phosphatase (U/L) Date Value 01/10/2024 111 Bilirubin, Total (mg/dL) Date Value 01/10/2024 0.3 AST (U/L) Date Value 01/10/2024 12 (L) ALT (U/L) Date Value 01/10/2024 13 M-Protein Concentration Date Value 01/10/2024 0.00 g/dL 10/18/2023 0.00 g/dL 07/26/2023 0.00 g/dL 05/18/2023 0.16 g/dL 04/25/2023 0.11 g/dL 11/04/2021 0.21 gm/dL 07/19/2021 0.19 gm/dL 06/24/2021 0.17 gm/dL 03/18/2021 0.19 gm/dL 12/16/2020 0.24 gm/dL DIAGNOSIS: (C88.0) Waldenstrom macroglobulinemia (HCC) (primary encounter diagnosis) Plan: B2 MICROGLOBULIN, COMPLETE BLOOD COUNT AND DIFFERENTIAL, COMPREHENSIVE METABOLIC PANEL, LACTATE DEHYDROGENASE, PHOSPHORUS INORGANIC, PROTEIN ELECTROPHORESIS SERUM W/INTERP, MONOCLONAL PROTEIN, SERUM (BLOOD), URIC ACID, CALCIUM, IONIZED, KAPPA/KING,FREE,SER, SERUM 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, 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) Plan: B2 MICROGLOBULIN, COMPLETE BLOOD COUNT AND DIFFERENTIAL, COMPREHENSIVE METABOLIC PANEL, LACTATE DEHYDROGENASE, PHOSPHORUS INORGANIC, PROTEIN ELECTROPHORESIS SERUM W/INTERP, MONOCLONAL PROTEIN, SERUM (BLOOD), URIC ACID, CALCIUM, IONIZED, KAPPA/KING,FREE,SER, SERUM VISCOSITY PAST MEDICAL HISTORY Diagnosis Date Acid reflux Depression Diabetes (HCC) Elevated blood protein High blood pressure High cholesterol Sleep apnea Waldenstrom macroglobulinemia (HCC) 05/21/2020 PAST SURGICAL HISTORY Procedure Laterality Date COLONOSCOPY 2014 EGD PAST SURGICAL HISTORY OF 09/2014 rotator cuff right shoulder PAST SURGICAL HISTORY OF 2012 umbilical hernia PAST SURGICAL HISTORY OF 05/2015 tubes in ear as an adult Social History Tobacco Use Smoking status: Every Day Packs/day: 1.00 Years: 25.00 Additional pack years: 0.00 Total pack years: 25.00 Types: Cigarettes Last attempt to quit: 03/08/2018 Years since quittin.8 Passive exposure: Current Smokeless tobacco: Never Tobacco comments: quit 2017 Vaping Use Vaping Use: Former Substance Use Topics Alcohol use: Not Currently Drug use: Not Currently FAMILY HISTORY Problem Relation Age of Onset Diabetes Mother living other (heart disease [Other]) Father Stroke Mother Multiple Sclerosis Sister I spent a total of 20 minutes on the date of service which included preparing to see the patient, [id number] patient care, completing clinical documentation, performing a medically appropriate examination, counseling and educating the patient/family/caregiver, ordering medications, tests, or procedures, independently interpreting results (not separately reported), communicating results to the patient/family/caregiver, and care coordination (not separately reported). Joon Piper MD, CPE Hematology and Oncology Services Provided at: [place], [place] Scribe Attestation: This note was scribed by Beverley eFrrari on January 17, 2024 under the direction and supervision of Dr. Joon Piper. I attest that all of the information documented is correct to the best of my knowledge. Provider Attestation: I, Joon Piper MD, attest that all information documented by the above scribe is correct, and was supervised by me and under my direction. CC: Dr. Evan Eugene [id number] [facility] [address] [facility] [facility] [id number] [address] Joby Mays documented in this encounter [facility] 01-17-2024 Note [facility] 01-15-2024 Miscellaneous Notes Taken off schedule Ok thanks - will add orders that day if indicated and will schedule appropriately. Kodi is scheduled 01/16 for OV and possibly resuming Rituxan. You will need to put orders in for ins PA, otherwise we will not be able to give tx that day if he ends up needing it. Thank you, Alice Montelongo, RN documented in this encounter [facility] 01-08-2024 History of Present illness Narrative Images from the original note were not included. Chief Complaint: History of colon polyps, GERD History of Present Illness Kodi Rivas is a 58 y.o. male who presents to the office for surveillance colonoscopy. His last colonoscopy was in 2018 at [facility], significant for tubular adenoma. He denies any concerns or changes in his bowels. He did have an episode of colitis in January 2022. He denies any rectal bleeding. He also reports GERD. He has been taking famotidine daily and sometimes Prilosec. He still has episodes of heartburn a few times weekly. He denies any nausea, vomiting or abdominal pain. He is unable to drink acidic drinks such as orange juice. His last EGD was 6 years ago. Review of Systems Constitutional: Negative for fever and unexpected weight change. HENT: Negative for trouble swallowing. Respiratory: Negative for shortness of breath. Cardiovascular: Negative for chest pain. Gastrointestinal: Negative for nausea, vomiting, abdominal pain, diarrhea, constipation, blood in stool and black tarry stool. GERD Genitourinary: Negative for dysuria and difficulty urinating. Musculoskeletal: Negative for gait problem. Skin: Negative for rash and wound. Neurological: Negative for dizziness, weakness and light-headedness. Hematological: Does not bruise/bleed easily. Psychiatric/Behavioral: Negative for confusion. Past Medical History: Diagnosis Date Acid reflux Depression Diabetes (CMS-HCC) Elevated blood protein HTN (hypertension) Hyperlipidemia Multiple myeloma (CMS-HCC) Sleep apnea Waldenstrom macroglobulinemia ([facility]-HCC) Past Surgical History: Procedure Laterality Date BRAIN SURGERY 2016 [facility] COLONOSCOPY ESOPHAGOGASTRODUODENOSCOPY HERNIA REPAIR Right 2019 BI-LATERAL INGUINAL- DR COMBS DID RIGHT SIDE LAST ROTATOR CUFF REPAIR Right UMBILICAL HERNIA REPAIR Allergies Allergen Reactions Atorvastatin muscle cramps EXPERIENCES FATIGUE WELL Metoclopramide Other reaction(s): Mental Status Change Tetanus And Diphtheria Toxoids Current Outpatient Medications: amLODIPine (NORVASC) 5 mg tablet, Take 1 tablet (5 mg total) by mouth in the morning., Disp: , Rfl: ASMANEX TWISTHALER 110 mcg/ actuation (30) inhaler, Inhale 1 puff once daily., Disp: , Rfl: benazepriL (LOTENSIN) 40 MG tablet, Take 1 tablet (40 mg total) by mouth in the morning., Disp: , Rfl: budesonide (PULMICORT) 0.25 mg/2 mL nebulizer solution, Inhale 2 mL (0.25 mg total) by nebulization once daily., Disp: , Rfl: gabapentin (NEURONTIN) 100 mg capsule, Take 1 capsule (100 mg total) by mouth as needed., Disp: , Rfl: metFORMIN (GLUCOPHAGE) 500 mg tablet, Take 1 tablet (500 mg total) by mouth daily with breakfast., Disp: , Rfl: brgbqwvrlgrf-Zm-rusq-minerals tablet, Take 1 tablet by mouth in the morning., Disp: , Rfl: omeprazole (PriLOSEC) 20 mg capsule, Take 1 capsule (20 mg total) by mouth as needed., Disp: , Rfl: sertraline (ZOLOFT) 100 mg tablet, Take 2 tablets (200 mg total) by mouth in the morning., Disp: , Rfl: sod sulf-pot chloride-mag sulf 1.479-0.188- 0.225 gram tablet, Please see instructional sheet given by physicians office., Disp: 24 tablet, Rfl: 0 Social History Socioeconomic History Marital status: Spouse name: Not on file Number of children: Not on file Years of education: Not on file Highest education level: Not on file Occupational History Not on file Tobacco Use Smoking status: Every Day Packs/day: 1.00 Years: 30.00 Additional pack years: 0.00 Total pack years: 30.00 Types: Cigarettes Smokeless tobacco: Never Vaping Use Vaping Use: Never used Substance and Sexual Activity Alcohol use: Not Currently Comment: weekends Drug use: Yes Types: Medical Marijuana Sexual activity: Yes Other Topics Concern Not on file Social History Narrative Not on file Social Determinants of Health Financial Resource Strain: Not on file Food Insecurity: No Food Insecurity (01/08/2024) Hunger Screening Food Insecurity - Worry: Never True Food Insecurity - Inability: Never True Transportation Needs: Not on file Physical Activity: Not on file Stress: Not on file Social Connections: Not on file Interpersonal Safety: Not on file Housing Instability: Not on file Family History Problem Relation Age of Onset Stroke Mother Heart disease Mother Dementia Mother Hypertension Father Heart disease Father Objective Physical Exam Constitutional: General: He is not in acute distress. Appearance: Normal appearance. He is not ill-appearing. HENT: Head: Normocephalic and atraumatic. Mouth/Throat: Mouth: Mucous membranes are moist. Eyes: Pupils: Pupils are equal, round, and reactive to light. Cardiovascular: Rate and Rhythm: Normal rate and regular rhythm. Pulmonary: Effort: Pulmonary effort is normal. No respiratory distress. Abdominal: General: Bowel sounds are normal. There is no distension. Palpations: Abdomen is soft. Tenderness: There is no abdominal tenderness. Musculoskeletal: General: Normal range of motion. Skin: General: Skin is warm and dry. Neurological: Mental Status: He is alert and oriented to person, place, and time. Mental status is at baseline. Vital Signs: Blood pressure 147/70, height 175.3 cm (5' 9 ), weight 82.1 kg (181 lb). Respiratory Source: No data recorded Admission Weight: Weight: 82.1 kg (181 lb) Labs Lab Results Component Value Date WBC 17.1 (H) 01/26/2022 HGB 15.0 01/26/2022 HCT 43.7 01/26/2022 MCV 88 01/26/2022 PLT 280 01/26/2022 Lab Results Component Value Date GLU 112 (H) 01/26/2022 CALCIUM 9.2 01/26/2022 K 3.8 01/26/2022 CO2 25 01/26/2022 CL 101 01/26/2022 BUN 18 01/26/2022 CREATININE 0.77 01/26/2022 No results found for: AMYLASE Lab Results Component Value Date LIPASE 31 01/26/2022 Lab Results Component Value Date ALT 21 01/26/2022 AST 16 01/26/2022 ALKPHOS 92 01/26/2022 Lab Results Component Value Date INR 1.1 01/26/2022 PROTIME 12.4 01/26/2022 Assessment History of colon polyps, last colonoscopy 2018 significant for tubular adenoma Gastroesophageal reflux Plan EGD and colonoscopy with possible biopsy and/or polypectomy. Risks, benefits, and alternatives discussed with patient. Educated on bowel evacuation preparation. Patient verbalizes understanding and wishes to proceed. Evaluation included: Preparing to see the patient (e.g., review of tests) Obtaining and/or reviewing separately obtained history Performing a medically appropriate examination and/or evaluation Counseling and educating the patient/family/caregiver Referring and communicating with other health veterinarian laboratory animal care Encounter for colonoscopy due to history of colonic polyp [Z12.11, Z86.010] TRISHA GEIGER [facility] General Surgery [place] This note was created with the assistance of a speech recognition program. While intending to generate a timely document that accurately reflects the content of the visit, no guarantee can be provided that every grammatical or spelling mistake has been or will be identified or corrected. Thank you for your understanding. TRISHA Geiger 01/08/24 1016 documented in this encounter [facility] 10-10-2023 Evaluation note Encounter Date Diagnosis Assessment Notes Oct, Acute recurrent maxillary sinusitis (ICD-10 - J01.01) Sinus infections can be triggered by a secondary infection from a viral URI or even seasonal allergies. Take medications as directed. Use saline nasal spray prior to presciption nasal spray. Take medications as directed, and complete all doses of medication even if you start to feel better. Patient advised to follow up with PCP if symptoms persist or worsen. Patient verbalized understanding and agreement with treatment plan. Oct, Waldenstrom macroglobulinemia (ICD-10 - C88.0) Discussed treatment plan at [facility]. Advise getting flu and covid immunizations after he finished his antibiotic and prior to his cruise next month. Discussed immunosuppression with treatment plan. [place] [employer] Other [id number] Instructions* Patient Instructions* Joon Piper MD - 08/02/2023 11:32 AM EDT Labs in 11 weeks RTC in 12 weeks Continue low dose Neurontin at night Consider additional Rituxan at that time. [facility] History of Present illness Narrative* Joon Piper MD - 08/02/2023 11:29 AM EDT Images from the original note were not included. NAME: Kodi Rivas [employer] NO.: [id number] DATE OF SERVICE: August 02, 2023 (Veronique) Some elements in this clinic note that are critical to medical decision making have been carefully reviewed and included from a prior clinic note dated: May 28, 2023 (Veronique) Referring Provider: Dr. Harrison Mays CC: Follow up ASSESSMENT: 1. Waldenstrom macroglobulinemia 56-year-old gentleman with IgM kappa monoclonal gammopathy and anemia with fatigue. Dx'd with Waldenstrom Macroglobulinemia. Anti MAG ab's were negative. His symptoms of fatigue have improved since starting Rituxan and completing the first 4 weeks. We then treated him again week 17 through 20 as his symptoms returned. Symptoms of Waldenstrom's have returned with fatigue and paresthesias of skin. - resolved again after re-challenge with rituxan. PLAN: Labs in 11 weeks RTC in 12 weeks Continue low dose Neurontin at night Consider additional Rituxan at that time. TREATMENT TO DATE: 04/18/2023 - Rituxan re-challenge 09/23/2020- 10/21/2020: Rituxan weekly X 4 rechallenge 05/27/2020-06/24/2020: Rituxan x 4 weekly HPI: Updated Visit, August 02, 2023: Says he feels really good. Anisha notice that he's not napping any longer. Officially retired. M-spike 0. Had a cold recently and WBC is elevated. Updated Visit, May 28, 2023: Feel a little better and not quite as sick feeling. Still gets fatigued. Will reconsider in 3 months. Gets up 2 x each night to void. Will be seeing PCP next month and will discuss. Updated Visit, April 25, 2023: Here with Anisha - interestingly his M-spike resolved prior to starting Rituxan again. No change in symptoms. Updated Visit, April 18, 2023: Kodi Rivas returns for follow-up and to begin Rituxan weekly x4 rechallenge. He denies any fevers, chills, night sweats and signs/symptoms of infection. No bleeding or abnormal bruising. He deniesany palpable lumps or bumps. He has had left heel pain for a couple of months. His biggest complaints are fatigue and generalized weakness. He has numbness and tingling in his arms and knees down to feet. Overall, he is doing well and wishes to proceed with treatment as planned. Updated Visit, March 14, 2023: For past two months has been getting progressive fatigue, lost weight, as well losing strength. Sleeps a lot. Worried disease is progressing. Brain fog and forgetfulness have returned. Last Rituxan was October2020. Paresthesias of skin. Updated Visit, February 09, 2023: Feels good. Reviewed labs with him. No symptoms indicating need for treatment. Slight increase in M-spike Updated Visit, November 09, 2022: Kodi Rivas returns for follow-up. Since his last visit there has been no medical changes. He states that he is feeling good. He has some joint and bone pain which he states is old age . He deniesany fatigue. He denies fevers, chills, night sweats and signs/symptoms of infection. No bleeding orabnormal bruising. He offers no new complaints today. Updated Visit, August 11, 2022: Feels good and is going to [place] for his Honeymoon - got July 22, 2022. (Anisha) M-spike continues to be stable. Updated Visit, May 12, 2022: Kodi returns and seems to be doing well. No new symptoms Fatigue stable M-spike decreasing on it's own Updated Visit, February 10, 2022: Kodi Rivas returns for follow-up and to review recent labs. Since his last visit he was diagnosed with colitis. He was seen at [facility]. He developed blood in his stools. He was placed on an antibiotic which is now complete. He denies any unusual pain. He is urinating okay. His weight is stable. He is eating and drinking well. He denies fevers, chills and infections. He has occasional night sweats. He denies bleeding and abnormal bruising. No new palpable lumps or bumps. Overall, today he is feeling well with no new complaints. No new issues, problems or concerns. Updated Visit, November 14, 2021: Weight is recovering and FUO resolved. Labs are stable. Left anterior chest at the 2 O'Clock position from the nipple was a small palpable nodule slightly tender, mobile and less than 1 cm. He will watch to see that this resolve or change. Otherwise he isdoing well. He got engaged just before [place] 2021. Updated Visit, August 11, 2021: Kodi Rivas is a 56 year old male seen for Waldenstrom's disease. Recent scans for neck pain and general malaise showed liver lesions confirmed on subsequent MRI to be benign hemangiomas. Symptoms have since resolved. Updated Visit, July 01, 2021: Kodi returns and all laboratory indices are improving. He is losing weight for unknown reason. Has soaking night sweats. Mild fatigue but not unusual for the amount of work he does. This is differentthan his symptoms associated with WMG. Symptoms not associated with Covid-19 Vaccination. Kendra is with hm today. His late Lorna had introduced them years ago. Updated Visit, April 01, 2021: Kodi is 56 years old and continues to do well following his second course of Rituxan completed in October 2020 for Jennifer Laura's macroglobulinemia that presents with fatigue as his primary symptom. Overall he is doing well. However, he is dealing with his left ear drainage is being managed by his primary care physician. He otherwise has no issues. M protein measures 0.19 which is the lowest has been since his initial diagnosis. Updated Visit, December 16, 2020: Kodi is 55 and completed his second 4 week course of Rituxan in mid October 2020. He has regained his energy and is doing well. Additionally, he has started a new relationship and is very happy. Serum / myeloma labs are pending, but counts are stable. Updated Visit, October 21, 2020: Kodi is 55 and returns to finish his last weekly dose of Rituxan weeks 17-20 with a one week delay from last week to recover from allergies that were causing severe itching in the eyes. Most symptoms have resolved. Sleep is really good. This week it seems like his fatigue is a little worse but is likely weather and seasonally related. Updated Visit, September 23, 2020: Patient returns today to rechallenge with weekly Rituxan X 4 after he originally responded well in June with resolution of his anemia and fatigue, but most recently in August his fatigue recurred. We postponed restarting Rituxan until he had his right inguinal repair, which was done on 09/15/[address] Combs at [facility]. He states this procedure went well and he is now recovered. He is feeling well other than fatigue. Denies headache, bloody nose, impaired vision, neuropathy, cough or shortness of breath. He did take Benadryl 50 mg PO and Tylenol at home as well this morning. Updated Visit, August 23, 2020: Kodi is 55 yo and felt great following his 1st 4 weeks of Rituximab for Waldenstrom's Macroglobulinemia but now has a profound recurrence of symptoms. We discussed treatment options of continuing Rituxan for 4 additional weekly doses which will be weeks 17-20 (Starting 09/23/2020 for 4 weeks). He has right inguinal hernia repair planned 09/15/2020 and we will commence treatment after. We can consider a short course of maintenance or add Ibrutinib in the future for relapsing symptoms. He has appointments September 08, 2020 for repeat labs which he will keep. We also discussed consideration of other causes of fatigue but he responded so nicely previously with reversal of symptoms that this is the most likely cause. Updated Visit, July 17, 2020: Kodi returns on Rituxan single agent for Waldenstrom's M. He has seemed to regain strength and energy and feels he is almost back to normal. We will finish his current course and at return of symptoms, we will add Ibrutinib to his second line. Updated Visit, June 10, 2020: Kodi is 55 years old and returns after having his first dose of Rituxan during which he had a pretty significant infusion reaction and was unable to complete the full dose. Following this, last week he got weak and hot at work and felt like he was going to pass out. He ended up sleeping for a wholeday, then got COVID testing (was negative) and two days later he had recovered. Unsure the etiology. He presents for his second dose today. Fatigue is unchanged. Updated Visit, May 27, 2020: Kodi is 55 yo and has Waldenstrom's macroglobulinemia. He comes in earlier than scheduled and is frustrated that his symptoms of fatigue and neuropathy are worse. He has elected to proceed with treatment using single agent Rituxan. Updated Visit, April 08, 2020: Kodi returns with his girlfriend to review his bone marrow biopsy results. Findings are consistent with Waldenstrom Macroglobulinemia. MYD88 +, Serum viscosity was 1.7. I cannot fully explain his neuropathy and will obtain Anti MAG antibodies. Updated Visit, March 24, 2020: Kodi is 55 yo and has what appears to have a primary bone marrow process that is concerning for either an IgM plasma cell disorder or a Lymphoplasmacytic lymphoma or Waldenstrom disease. He has numbness everywhere (and some tingling) mostly numbness seems to be getting worse over the past few months. He has no other clear causes. He may have some benefit from B12 supplementation, but will need a bone marrow biopsy to fully assess. Initial Visit, March 10, 2020: Kodi Rivas presents today Hematology and Oncology evaluation. He is a 55 year old male who presents for workup of anemia and elevated protein levels. 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 He is currently very fatigued d espite being on CPAP for sleep apnea and he also has some depression related to the passing of his 3 years ago in a car accident. He had a CT scan due to the weight loss that showed a pancreaticabnormality but overall negative study. He had an EGD and EUS which is unremarkable per his report.He also reports a prior history of pancreatitis in 2010. His last colonoscopy was in 2018 or 19 reported that it was clear that I see is also had a history of an adenomatous polyp. He had a serum protein immunologic pheresis obtained which came back abnormal. Labs from 03/03/2020 as follows CBC: 5.6 > 12.7/37.7 < 239, MCV 88.5, RDW 12.9, slightly decreased lymphocytes. Since findings show immunofixation demonstrating IgM monoclonal protein with kappa light chain specificity. Quantitative IgM 335 mg/dL IgG and IgA while decreased are within normal limits. Ferritin 30, B12 526, FT4 0.78, TSH 0.37, free T3 2 0.30, no clinically significant abnormalities on CMP with normal creatinine and normal calcium. REVIEW OF SYSTEMS Per HPI and otherwise negative by full review of organ systems. ECOG PERFORMANCE STATUS: 0 PHYSICAL EXAMINATION: Vitals: BP 136/70 Pulse 76 Temp (Src) 97.4 (Temporal) Resp 18 Ht 5' 8.937 (1.75m) Wt 180lb 12.8 oz (82.0kg) SpO2 97% BMI 26.75 kg/(m^2). Body surface area is 2 meters squared. Exam limited to gross visualization where appropriate. Gen.: This is an age-appropriate patient in no acute distress. Looks thinner. Head: Appears atraumatic with no visible lesions. Eyes: Pupils equally round and reactive to light, extraocular muscles are intact. Neck: Supple. Mouth: Mucous membranes appeared to be moist. Respiratory: Appears to be respiring comfortably. Neurologic: Nonfocal to gross visualization. Alert and oriented 3. Psychiatric: No evidence of inappropriate anxiety or depression. Skin: Visible areas of skin without rash, lesions, wounds or petechiae. ALLERGIES: ALLERGIES Allergen Reactions Allopurinol Unknown Reglan [Metoclopram* Mental Status Change Tetnus [Tetanus Vac* Anaphylaxis MEDICATIONS: gabapentin (NEURONTIN) 100 mg capsule Take 1 capsule by mouth daily at bedtime for 180 days. acetaminophen (TYLENOL EXTRA STRENGTH) 500 mg tablet Take 500 mg by mouth every 8 hours as needed. Ibuprofen 200 mg cap Take by mouth every 6 hours as needed. multivitamin tablet Take 1 tablet by mouth once daily. amLODIPine (NORVASC) 10 mg tablet Take 10 mg by mouth once daily. albuterol HFA (PROVENTIL HFA, VENTOLIN HFA) 90 mcg/actuation inhaler INHALE 2 PUFFS BY MOUTH NEEDED sildenafil (VIAGRA) 100 mg tablet Take 100 mg by mouth as needed. Benazepril HCl 40 mg tablet Take 40 mg by mouth once daily. sertraline (ZOLOFT) 100 mg tablet Take 100 mg by mouth twice daily. METFORMIN HCL (METFORMIN ORAL) Take 500 mg by mouth once daily. OMEPRAZOLE (PRILOSEC ORAL) Take 20 mg by mouth once daily. LORATADINE (CLARITIN ORAL) Take 10 mg by mouth as needed. LABORATORY VALUES: WBC (k/uL) Date Value 07/26/2023 13.46 (H) RBC (m/uL) Date Value 07/26/2023 5.00 Hemoglobin (g/dL) Date Value 07/26/2023 14.9 Hematocrit (%) Date Value 07/26/2023 43.9 MCV (fL) Date Value 07/26/2023 87.8 MCH (pg) Date Value 07/26/2023 29.8 MCHC (g/dL) Date Value 07/26/2023 33.9 RDW-CV (%) Date Value 07/26/2023 12.8 Platelet Count (k/uL) Date Value 07/26/2023 298 MPV (fL) Date Value 07/26/2023 9.4 Glucose (mg/dL) Date Value 07/26/2023 132 (H) BUN (mg/dL) Date Value 07/26/2023 25 (H) Creatinine (mg/dL) Date Value 07/26/2023 1.01 Sodium (mmol/L) Date Value 07/26/2023 141 Potassium (mmol/L) Date Value 07/26/2023 4.2 Chloride (mmol/L) Date Value 07/26/2023 105 CO2 (mmol/L) Date Value 07/26/2023 26 Protein, Total (g/dL) Date Value 07/26/2023 7.2 07/26/2023 6.7 Albumin (g/dL) Date Value 07/26/2023 4.7 Calcium, Total (mg/dL) Date Value 07/26/2023 9.6 Alkaline Phosphatase (U/L) Date Value 07/26/2023 123 (H) Bilirubin, Total (mg/dL) Date Value 07/26/2023 <0.2 (L) AST (U/L) Date Value 07/26/2023 12 (L) ALT (U/L) Date Value 07/26/2023 13 M-Protein Concentration Date Value 07/26/2023 0.00 g/dL 05/18/2023 0.16 g/dL 04/25/2023 0.11 g/dL 04/18/2023 0.00 g/dL 03/14/2023 0.14 g/dL 11/04/2021 0.21 gm/dL 07/19/2021 0.19 gm/dL 06/24/2021 0.17 gm/dL 03/18/2021 0.19 gm/dL 12/16/2020 0.24 gm/dL DIAGNOSIS: (C88.0) Waldenstrom macroglobulinemia (HCC) (primary encounter diagnosis) Plan: B2 MICROGLOBULIN B, CBC + DIFF, COMP METABOLIC PANEL, LD LACTATE DEHYDRO, PHOSPHORUS INORGANIC, PROTEIN ELECTROPHORESIS SERUM W/INTERP, MONOCLONAL PROTEIN, SERUM (BLOOD), URIC ACID BLOOD, CALCIUM IONIZED BLOOD, KAPPA/KING,FREE,SER, SERUM 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, 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) Plan: B2 MICROGLOBULIN B, CBC + DIFF, COMP METABOLIC PANEL, LD LACTATE DEHYDRO, PHOSPHORUS INORGANIC, PROTEIN ELECTROPHORESIS SERUM W/INTERP, MONOCLONAL PROTEIN, SERUM (BLOOD), URIC ACID BLOOD, CALCIUM IONIZED BLOOD, KAPPA/KING,FREE,SER, SERUM VISCOSITY PAST MEDICAL HISTORY Diagnosis Date Acid reflux Depression Diabetes (HCC) Elevated blood protein High blood pressure High cholesterol Sleep apnea Waldenstrom macroglobulinemia (HCC) 05/21/2020 PAST SURGICAL HISTORY Procedure Laterality Date COLONOSCOPY 2014 EGD PAST SURGICAL HISTORY OF 09/2014 rotator cuff right shoulder PAST SURGICAL HISTORY OF 2012 umbilical hernia PAST SURGICAL HISTORY OF 05/2015 tubes in ear as an adult Social History Tobacco Use Smoking status: Every Day Packs/day: 1.00 Years: 25.00 Additional pack years: 0.00 Total pack years: 25.00 Types: Cigarettes Last attempt to quit: 03/08/2018 Years since quittin.4 Passive exposure: Current Smokeless tobacco: Never Tobacco comments: quit 2018 Vaping Use Vaping Use: Former Substance Use Topics Alcohol use: Not Currently Drug use: Not Currently FAMILY HISTORY Problem Relation Age of Onset Diabetes Mother living other (heart disease [Other]) Father Stroke Mother Multiple Sclerosis Sister I spent a total of 20 minutes on the date of the service which included preparing to see the patient, [id number] patient care, completing clinical documentation, performing a medically appropriate examination, counseling and educating the patient/family/caregiver, ordering medications, tests, or p rocedures, independently interpreting results (not separately reported), communicating results to the patient/family/caregiver, and care coordination (not separately reported). Joon Piper MD, CPE Hematology and Oncology Services Provided at: [place], [place] CC: Dr. Evan Eugene [address] [facility] [address] [address] Joby Mays documented in this encounterCleveland [facility]10-17-2023 Miscellaneous Notes* Telephone Encounter - Leigh Manuel - 07/24/2023 3:53 PM EDT [employer] paperwork completed and faxed @ [phone]. Leigh Manuel documented in this encounterCleveland [facility]09-14-2023 Evaluation note* Encounter Date Diagnosis Assessment Notes Treatment Notes Treatment Clinical Notes Jun, Frequency of micturition (ICD-10 - R35.0) Jun, Benign prostatic hyperplasia with lower urinary tract symptoms (ICD-10 - N40.1) [employer] Other 08-30-2023 Evaluation note* Encounter Date Diagnosis Assessment Notes Treatment Notes Treatment Clinical Notes May, Wellness examination (ICD-10 - Z00.00) Healthy diet and exercise. Reviewed age-appropriate preventive testing recommended. May, Primary hypertension (ICD-10 - I10) This patient is instructed to consume a healthy, low-fat, low-salt diet. They are also encouraged to continue exercise to achieve/maintain a normal BMI. May, Elevated cholesterol (ICD-10 - E78.00) Instructed on diet and exercise with continued statin therapy.Discussed the beneficial effects of lowering cholesterol in reducing the risk for cerebrovascular and cardiovascular disease. May, Type 2 diabetes mellitus with hyperglycemia, without long-term current use of insulin (ICD-10 - E11.65) This patient is following a comprehensive diabetic treatment plan. They are checking their feet daily for calluses and nonhealing ulcers. They are being seen for yearly dilated eye examinations. Goals: SBP less than 130, LDL less than 100, FBS less than 140, AC and A1C less than 7%. They are checking their BS daily, will which are reviewed at the office visit. Continue regular routine monitoring of A1C,] Microalbumin, Dilated eye exam and Foot exam May, Cigarette nicotine dependence without complication (ICD-10 - F17.210) This patient has been encouraged to quit tobacco use immediately. They are aware of the hazards associated with tobacco use, including but not limited to respiratory infections, vascular disease and cancers. May, Waldenstrom's macroglobulinemia (ICD-10 - C88.0) Appears to be active but per patient controlled. Continue f/u with [facility]. Reviewed immunizations - update Pneumococcal status - recommend Shingrix and Covid booster May, Gastroesophageal reflux disease with esophagitis without hemorrhage (ICD-10 - K21.00) Diet instructions: Smaller portions, avoid eating and laying flat, avoid eating or drinking prior to bedtime. Weight loss. May, Recurrent major depressive disorder, in full remission (ICD-10 - F33.42) Stable w/ treatment. Healthy diet, exercise and keep active May, Frequency of micturition (ICD-10 - R35.0) May, Benign prostatic hyperplasia with lower urinary tract symptoms (ICD-10 - N40.1) Symptoms worsening - r/o glucosuria - r/o infection - r/o prostatitis Push fluids, avoid sweets and stimulants Discussed FLomax and referral to if needed May, Left hip pain (ICD-1 0 - M25.552) No provoking activity or injury. Discussed ROM exercises, ice/heat and Voltaren Gel DIscussed PT vs referral to Orthopedics Recommended XR May, High risk medication use (ICD-10 - Z79.899) Checking labs May, Screening PSA (prostate specific antigen) (ICD-10 - Z12.5) Yearly PSA and ARVIN May, Screening for colon cancer (ICD-10 - Z12.11) Patient declined testing at this time. He denies changes in appetite, weight or bowel habits He denies heartburn, dysphagia, melena or hematochezia [employer] Other 08-23-2023 Miscellaneous Notes* Telephone Encounter - Leigh Manuel - 05/30/2023 2:59 PM EDT Paperwork faxed to [employer] @ [phone]. Leigh Manuel * Telephone Encounter - Leigh Manuel - 05/29/2023 11:28 AM EDT Disability Claim form has been completed and placed in folder to be signed. Leigh Manuel documented in this encounterCleveland Clinic [facility]08-21-2023 Instructions* Patient Instructions* Joon Piper MD - 05/28/2023 2:26 PM EDT Labs in 11 weeks RTC in 12 weeks Continue low dose Neurontin at night documented in this encounterCleveland Clinic [facility]08-21-2023 History of Present illness Narrative* Joon Piper MD - 05/28/2023 2:00 PM EDT Images from the original note were not included. NAME: Kodi Rivas [employer] NO.: [id number] DATE OF SERVICE: May 28, 2023 (Veronique) Some elements in this clinic note that are critical to medical decision making have been carefully reviewed and included from a prior clinic note dated: April 25, 2023 (Veronique) Referring Provider: Dr. Harrison Mays CC: Follow up ASSESSMENT: 1. Waldenstrom macroglobulinemia 56-year-old gentleman with IgM kappa monoclonal gammopathy and anemia with fatigue. Dx'd with Waldenstrom Macroglobulinemia. Anti MAG ab's were negative. His symptoms of fatigue have improved since starting Rituxan and completing the first 4 weeks. We then treated him again week 17 through 20 as his symptoms returned. Symptoms of Waldenstrom's have returned with fatigue and paresthesias of skin. PLAN: Labs in 11 weeks RTC in 12 weeks Continue low dose Neurontin at night Consider additional Rituxan at that time. TREATMENT TO DATE: 04/18/2023 - Rituxan re-challenge 09/23/2020- 10/21/2020: Rituxan weekly X 4 rechallenge 05/27/2020-06/24/2020: Rituxan x 4 weekly HPI: Updated Visit, May 28, 2023: Feel a little better and not quite as sick feeling. Still gets fatigued. Will reconsider in 3 months. Gets up 2 x each night to void. Will be seeing PCP next month and will discuss. Updated Visit, April 25, 2023: Here with Anisha - demarcus his M-spike resolved prior to starting Rituxan again. No change in symptoms. Updated Visit, April 18, 2023: Kodi Rivas returns for follow-up and to begin Rituxan weekly x4 rechallenge. He denies any fevers, chills, night sweats and signs/symptoms of infection. No bleeding or abnormal bruising. He deniesany palpable lumps or bumps. He has had left heel pain for a couple of months. His biggest complaints are fatigue and generalized weakness. He has numbness and tingling in his arms and knees down to feet. Overall, he is doing well and wishes to proceed with treatment as planned. Updated Visit, March 14, 2023: For past two months has been getting progressive fatigue, lost weight, as well losing strength. Sleeps a lot. Worried disease is progressing. Brain fog and forgetfulness have returned. Last Rituxan was October2020. Paresthesias of skin. Updated Visit, February 09, 2023: Feels good. Reviewed labs with him. No symptoms indicating need for treatment. Slight increase in M-spike Updated Visit, November 09, 2022: Kodi Rivas returns for follow-up. Since his last visit there has been no medical changes. He states that he is feeling good. He has some joint and bone pain which he states is old age . He deniesany fatigue. He denies fevers, chills, night sweats and signs/symptoms of infection. No bleeding orabnormal bruising. He offers no new complaints today. Updated Visit, August 11, 2022: Feels good and is going to [place] for his Honeymoon - got July 22, 2022. (Anisha) M-spike continues to be stable. Updated Visit, May 12, 2022: Kodi returns and seems to be doing well. No new symptoms Fatigue stable M-spike decreasing on it's own Updated Visit, February 10, 2022: Kodi Rivas returns for follow-up and to review recent labs. Since his last visit he was diagnosed with colitis. He was seen at [facility]. He developed blood in his stools. He was placed on an antibiotic which is now complete. He denies any unusual pain. He is urinating okay. His weight is stable. He is eating and drinking well. He denies fevers, chills and infections. He has occasional night sweats. He denies bleeding and abnormal bruising. No new palpable lumps or bumps. Overall, today he is feeling well with no new complaints. No new issues, problems or concerns. Updated Visit, November 14, 2021: Weight is recovering and FUO resolved. Labs are stable. Left anterior chest at the 2 O'Clock position from the nipple was a small palpable nodule slightly tender, mobile and less than 1 cm. He will watch to see that this resolve or change. Otherwise he isdoing well. He got engaged just before Marshall 2021. Updated Visit, August 11, 2021: Kodi Rivas is a 56 year old male seen for Waldenstrom's disease. Recent scans for neck pain and general malaise showed liver lesions confirmed on subsequent MRI to be benign hemangiomas. Symptoms have since resolved. Updated Visit, July 01, 2021: Kodi returns and all laboratory indices are improving. He is losing weight for unknown reason. Has soaking night sweats. Mild fatigue but not unusual for the amount of work he does. This is differentthan his symptoms associated with WMG. Symptoms not associated with Covid-19 Vaccination. Kendra is with hm today. His late Lorna had introduced them years ago. Updated Visit, April 01, 2021: Kodi is 56 years old and continues to do well following his second course of Rituxan completed in October 2020 for Hunters Laura's macroglobulinemia that presents with fatigue as his primary symptom. Overall he is doing well. However, he is dealing with his left ear drainage is being managed by his primary care physician. He otherwise has no issues. M protein measures 0.19 which is the lowest has been since his initial diagnosis. Updated Visit, December 16, 2020: Kodi is 55 and completed his second 4 week course of Rituxan in mid October 2020. He has regained his energy and is doing well. Additionally, he has started a new relationship and is very happy. Serum / myeloma labs are pending, but counts are stable. Updated Visit, October 21, 2020: Kodi is 55 and returns to finish his last weekly dose of Rituxan weeks 17-20 with a one week delay from last week to recover from allergies that were causing severe itching in the eyes. Most symptoms have resolved. Sleep is really good. This week it seems like his fatigue is a little worse but is likely weather and seasonally related. Updated Visit, September 23, 2020: Patient returns today to rechallenge with weekly Rituxan X 4 after he originally responded well in June with resolution of his anemia and fatigue, but most recently in August his fatigue recurred. We postponed restarting Rituxan until he had his right inguinal repair, which was done on 09/15/[address] Combs at [facility]. He states this procedure went well and he is now recovered. He is feeling well other than fatigue. Denies headache, bloody nose, impaired vision, neuropathy, cough or shortness of breath. He did take Benadryl 50 mg PO and Tylenol at home as well this morning. Updated Visit, August 23, 2020: Kodi is 55 yo and felt great following his 1st 4 weeks of Rituximab for Waldenstrom's Macroglobulinemia but now has a profound recurrence of symptoms. We discussed treatment options of continuing Rituxan for 4 additional weekly doses which will be weeks 17-20 (Starting 09/23/2020 for 4 weeks). He has right inguinal hernia repair planned 09/15/2020 and we will commence treatment after. We can consider a short course of maintenance or add Ibrutinib in the future for relapsing symptoms. He has appointments September 08, 2020 for repeat labs which he will keep. We also discussed consideration of other causes of fatigue but he responded so nicely previously with reversal of symptoms that this is the most likely cause. Updated Visit, July 17, 2020: Kodi returns on Rituxan single agent for Waldenstrom's M. He has seemed to regain strength and energy and feels he is almost back to normal. We will finish his current course and at return of symptoms, we will add Ibrutinib to his second line. Updated Visit, June 10, 2020: Kodi is 55 years old and returns after having his first dose of Rituxan during which he had a pretty significant infusion reaction and was unable to complete the full dose. Following this, last week he got weak and hot at work and felt like he was going to pass out. He ended up sleeping for a wholeday, then got COVID testing (was negative) and two days later he had recovered. Unsure the etiology. He presents for his second dose today. Fatigue is unchanged. Updated Visit, May 27, 2020: Kodi is 55 yo and has Waldenstrom's macroglobulinemia. He comes in earlier than scheduled and is frustrated that his symptoms of fatigue and neuropathy are worse. He has elected to proceed with treatment using single agent Rituxan. Updated Visit, April 08, 2020: Kodi returns with his girlfriend to review his bone marrow biopsy results. Findings are consistent with Waldenstrom Macroglobulinemia. MYD88 +, Serum viscosity was 1.7. I cannot fully explain his neuropathy and will obtain Anti MAG antibodies. Updated Visit, March 24, 2020: Kodi is 55 yo and has what appears to have a primary bone marrow process that is concerning for either an IgM plasma cell disorder or a Lymphoplasmacytic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 his symptoms resolved same day. No problems since. Any new referrals needed? No Reinforced CURRENT treatment education based on current and anticipated symptoms. Discussed port/line care and patient verbalizes understanding: Not Applicable Patient instructed to contact office or after hours Hematology/Oncology fellow for: temperature ? 100.4; questions or concerns. Patient verbalized understanding of when to seek medical attention and after hours number protocol. Diana Leong RN documented in this encounterCleveland Clinic [facility]07-12-2023 Miscellaneous Notes* Telephone Encounter - Rekha Mariee - 04/18/2023 4:25 PM EDT 1st report of treatment-Benefit investigation complete. Spoke with patient Kodi today. Patient is active with MMO, LOC 80%, $500 deductible has $192.40 remaining, $3000 OOP has $2307.60 remaining. Estimate shows patient financial responsibility is $2500 for each treatment in 2022 until oop max is reached. Patient stated understanding. I explained that the drug [employer] has a copay program just like he was on before with [employer] and with his permission I could go ahead and enroll him in this to help with his OOP expenses. He was very appreciative of this and permission was given. Estimate Reference #[id number]. Cost facit survey completed. Was able to enroll Kodi into the program with [employer]. ID# [id number] $20,000 ramy I mailed him this info along with my contact information. documented in this encounterCleveland Clinic [facility]07-12-2023 History of Present illness Narrative* Evan Bermudez RN - 04/18/2023 4:10 PM EDT 1200-patient c/o itching in mouth and ears as well as nasal congestion. VSS. Stopped infusion. Started IVF. Zeynep Burton [employer] notified. No further intervention at this time. 1215 restarted infusion after symptoms resolved per [employer]. Decreased rate of infusion back to 50mg/hr.No further action needed. 1545 Patient completed without any additional problems. VSS. Evan Bermudez RN documented in this encounterCleveland Clinic [facility]07-12-2023 History of Present illness Narrative* Zeynep Burton APRN.[employer] - 04/18/2023 9:00 AM EDT Images from the original note were not included. NAME: Kodi Rivas CLINIC NO.: [id number] DATE OF SERVICE: April 18, 2023 (Micheal) Some elements in this clinic note that are critical to medical decision making have been carefully reviewed and included from a prior clinic note dated: March 14, 2023 (Dr. Piper) Referring Provider: Dr. Harrison Mays CC: Follow up ASSESSMENT: 1. Waldenstrom macroglobulinemia 56-year-old gentleman with IgM kappa monoclonal gammopathy and anemia with fatigue. Dx'd with Waldenstrom Macroglobulinemia. Anti MAG ab's were negative. His symptoms of fatigue have improved since starting Rituxan and completing the first 4 weeks. We then treated him again week 17 through 20 as his symptoms returned. Symptoms of Waldenstrom's have returned with fatigue and paresthesias of skin. PLAN: Start Rituxan weekly x 4 Follow-up with Dr. Piper in 2 weeks. Patient will discuss with Dr. Piper possibly starting Neurontin for neuropathy at his follow-upappointment. TREATMENT TO DATE: 2. 09/23/2020- 10/21/2020: Rituxan weekly X 4 rechallenge 1. 05/27/2020-06/24/2020: Rituxan x 4 weekly HPI: Updated Visit, April 18, 2023: Kodi Rivas returns for follow-up and to begin Rituxan weekly x4 rechallenge. He denies any fevers, chills, night sweats and signs/symptoms of infection. No bleeding or abnormal bruising. He deniesany palpable lumps or bumps. He has had left heel pain for a couple of months. His biggest complaints are fatigue and generalized weakness. He has numbness and tingling in his arms and knees down to feet. Overall, he is doing well and wishes to proceed with treatment as planned. Updated Visit, March 14, 2023: For past two months has been getting progressive fatigue, lost weight, as well losing strength. Sleeps a lot. Worried disease is progressing. Brain fog and forgetfulness have returned. Last Rituxan was October2020. Paresthesias of skin. Updated Visit, February 09, 2023: Feels good. Reviewed labs with him. No symptoms indicating need for treatment. Slight increase in M-spike Updated Visit, November 09, 2022: Kodi Rivas returns for follow-up. Since his last visit there has been no medical changes. He states that he is feeling good. He has some joint and bone pain which he states is old age . He deniesany fatigue. He denies fevers, chills, night sweats and signs/symptoms of infection. No bleeding orabnormal bruising. He offers no new complaints today. Updated Visit, August 11, 2022: Feels good and is going to [place] for his Honeymoon - got July 22, 2022. (Anisha) Ro-spike continues to be stable. Updated Visit, May 12, 2022: Kodi returns and seems to be doing well. No new symptoms Fatigue stable M-spike decreasing on it's own Updated Visit, February 10, 2022: Kodi Rivas returns for follow-up and to review recent labs. Since his last visit he was diagnosed with colitis. He was seen at [facility]. He developed blood in his stools. He was placed on an antibiotic which is now complete. He denies any unusual pain. He is urinating okay. His weight is stable. He is eating and drinking well. He denies fevers, chills and infections. He has occasional night sweats. He denies bleeding and abnormal bruising. No new palpable lumps or bumps. Overall, today he is feeling well with no new complaints. No new issues, problems or concerns. Updated Visit, November 14, 2021: Weight is recovering and FUO resolved. Labs are stable. Left anterior chest at the 2 O'Clock position from the nipple was a small palpable nodule slightly tender, mobile and less than 1 cm. He will watch to see that this resolve or change. Otherwise he isdoing well. He got engaged just before Marshall 2021. Updated Visit, August 11, 2021: Kodi Rivas is a 56 year old male seen for Waldenstrom's disease. Recent scans for neck pain and general malaise showed liver lesions confirmed on subsequent MRI to be benign hemangiomas. Symptoms have since resolved. Updated Visit, July 01, 2021: Kodi returns and all laboratory indices are improving. He is losing weight for unknown reason. Has soaking night sweats. Mild fatigue but not unusual for the amount of work he does. This is differentthan his symptoms associated with [facility]. Symptoms not associated with Covid-19 Vaccination. Kendra is with hm today. His late Lorna had introduced them years ago. Updated Visit, April 01, 2021: Kodi is 56 years old and continues to do well following his second course of Rituxan completed in October 2020 for Hunters Laura's macroglobulinemia that presents with fatigue as his primary symptom. Overall he is doing well. However, he is dealing with his left ear drainage is being managed by his primary care physician. He otherwise has no issues. M protein measures 0.19 which is the lowest has been since his initial diagnosis. Updated Visit, December 16, 2020: Kodi is 55 and completed his second 4 week course of Rituxan in mid October 2020. He has regained his energy and is doing well. Additionally, he has started a new relationship and is very happy. Serum / myeloma labs are pending, but counts are stable. Updated Visit, October 21, 2020: Kodi is 55 and returns to finish his last weekly dose of Rituxan weeks 17-20 with a one week delay from last week to recover from allergies that were causing severe itching in the eyes. Most symptoms have resolved. Sleep is really good. This week it seems like his fatigue is a little worse but is likely weather and seasonally related. Updated Visit, September 23, 2020: Patient returns today to rechallenge with weekly Rituxan X 4 after he originally responded well in June with resolution of his anemia and fatigue, but most recently in August his fatigue recurred. We postponed restarting Rituxan until he had his right inguinal repair, which was done on 09/15/[address] Combs at [facility]. He states this procedure went well and he is now recovered. He is feeling well other than fatigue. Denies headache, bloody nose, impaired vision, neuropathy, cough or shortness of breath. He did take Benadryl 50 mg PO and Tylenol at home as well this morning. Updated Visit, August 23, 2020: Kodi is 55 yo and felt great following his 1st 4 weeks of Rituximab for Waldenstrom's Macroglobulinemia but now has a profound recurrence of symptoms. We discussed treatment options of continuing Rituxan for 4 additional weekly doses which will be weeks 17-20 (Starting 09/23/2020 for 4 weeks). He has right inguinal hernia repair planned 09/15/2020 and we will commence treatment after. We can consider a short course of maintenance or add Ibrutinib in the future for relapsing symptoms. He has appointments September 08, 2020 for repeat labs which he will keep. We also discussed consideration of other causes of fatigue but he responded so nicely previously with reversal of symptoms that this is the most likely cause. Updated Visit, July 17, 2020: Kodi returns on Rituxan single agent for Waldenstrom's M. He has seemed to regain strength and energy and feels he is almost back to normal. We will finish his current course and at return of symptoms, we will add Ibrutinib to his second line. Updated Visit, June 10, 2020: Kodi is 55 years old and returns after having his first dose of Rituxan during which he had a pretty significant infusion reaction and was unable to complete the full dose. Following this, last week he got weak and hot at work and felt like he was going to pass out. He ended up sleeping for a wholeday, then got COVID testing (was negative) and two days later he had recovered. Unsure the etiology. He presents for his second dose today. Fatigue is unchanged. Updated Visit, May 27, 2020: Kodi is 55 yo and has Waldenstrom's macroglobulinemia. He comes in earlier than scheduled and is frustrated that his symptoms of fatigue and neuropathy are worse. He has elected to proceed with treatment using single agent Rituxan. Updated Visit, April 08, 2020: Kodi returns with his girlfriend to review his bone marrow biopsy results. Findings are consistent with Waldenstrom Macroglobulinemia. MYD88 +, Serum viscosity was 1.7. I cannot fully explain his neuropathy and will obtain Anti MAG antibodies. Updated Visit, March 24, 2020: Kodi is 55 yo and has what appears to have a primary bone marrow process that is concerning for either an IgM plasma cell disorder or a Lymphoplasmacytic lymphoma or Waldenstrom disease. He has numbness everywhere (and some tingling) mostly numbness seems to be getting worse over the past few months. He has no other clear causes. He may have some benefit from B12 supplementation, but will need a bone marrow biopsy to fully assess. Initial Visit, March 10, 2020: Kodi Rivas presents today Hematology and Oncology evaluation. He is a 55 year old male who presents for workup of anemia and elevated protein levels. 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 He is currently very fatigued d espite being on CPAP for sleep apnea and he also has some depression related to the passing of his 3 years ago in a car accident. He had a CT scan due to the weight loss that showed a pancreaticabnormality but overall negative study. He had an EGD and EUS which is unremarkable per his report.He also reports a prior history of pancreatitis in 2010. His last colonoscopy was in 2017 or 19 reported that it was clear that I see is also had a history of an adenomatous polyp. He had a serum protein immunologic pheresis obtained which came back abnormal. Labs from 03/03/2020 as follows CBC: 5.6 > 12.7/37.7 < 239, MCV 88.5, RDW 12.9, slightly decreased lymphocytes. Since findings show immunofixation demonstrating IgM monoclonal protein with kappa light chain specificity. Quantitative IgM 335 mg/dL IgG and IgA while decreased are within normal limits. Ferritin 30, B12 526, FT4 0.78, TSH 0.37, free T3 2 0.30, no clinically significant abnormalities on CMP with normal creatinine and normal calcium. REVIEW OF SYSTEMS Per HPI and otherwise negative by full review of organ systems. ECOG PERFORMANCE STATUS: 0 PHYSICAL EXAMINATION: Vitals: BP 126/68 Pulse 74 Temp (Src) 97.9 (Temporal) Resp 16 Ht 5' 8.937 [verified 2 MA's shoes off[ (1.75m) Wt 174 lb (78.9kg) SpO2 100% BMI 25.74 kg/(m^2). Body surface area is 1.96 meters squared. Exam limited to gross visualization where appropriate. Gen.: This is an age-appropriate patient in no acute distress. Looks thinner. Head: Appears atraumatic with no visible lesions. Eyes: Pupils equally round and reactive to light, extraocular muscles are intact. Neck: Supple. Mouth: Mucous membranes appeared to be moist. Respiratory: Appears to be respiring comfortably. Neurologic: Nonfocal to gross visualization. Alert and oriented 3. Psychiatric: No evidence of inappropriate anxiety or depression. Skin: Visible areas of skin without rash, lesions, wounds or petechiae. ALLERGIES: ALLERGIES Allergen Reactions Allopurinol Unknown Reglan [Metoclopram* Mental Status Change Tetnus [Tetanus Vac* Anaphylaxis MEDICATIONS: acetaminophen (TYLENOL EXTRA STRENGTH) 500 mg tablet Take 500 mg by mouth every 8 hours as needed. Ibuprofen 200 mg cap Take by mouth every 6 hours as needed. multivitamin tablet Take 1 tablet by mouth once daily. amLODIPine (NORVASC) 10 mg tablet Take 10 mg by mouth once daily. albuterol HFA (PROVENTIL HFA, VENTOLIN HFA) 90 mcg/actuation inhaler INHALE 2 PUFFS BY MOUTH NEEDED sildenafil (VIAGRA) 100 mg tablet Take 100 mg by mouth as needed. Benazepril HCl 40 mg tablet Take 40 mg by mouth once daily. sertraline (ZOLOFT) 100 mg tablet Take 100 mg by mouth twice daily. METFORMIN HCL (METFORMIN ORAL) Take 500 mg by mouth once daily. OMEPRAZOLE (PRILOSEC ORAL) Take 20 mg by mouth once daily. LORATADINE (CLARITIN ORAL) Take 10 mg by mouth as needed. LABORATORY VALUES: Hemoglobin (g/dL) Date Value 04/18/2023 14.3 11/04/2021 15.8 Hematocrit (%) Date Value 04/18/2023 42.3 11/04/2021 46.9 WBC (k/uL) Date Value 04/18/2023 8.76 11/04/2021 8.02 Platelet Count (k/uL) Date Value 04/18/2023 212 11/04/2021 237 M-Protein Concentration Date Value 03/14/2023 0.14 g/dL 02/02/2023 0.15 g/dL 11/03/2022 0.00 g/dL 08/04/2022 0.18 g/dL 04/13/2022 0.19 g/dL 11/04/2021 0.21 gm/dL 07/19/2021 0.19 gm/dL 06/24/2021 0.17 gm/dL 03/18/2021 0.19 gm/dL 12/16/2020 0.24 gm/dL DIAGNOSIS: (C88.0) Waldenstrom macroglobulinemia (HCC) (primary encounter diagnosis) (E11.42) Type 2 diabetes mellitus with diabetic polyneuropathy, without long- term current use of insulin (HCC) (D50.8) Other iron deficiency anemia PAST MEDICAL HISTORY Diagnosis Date Acid reflux Depression Diabetes (HCC) Elevated blood protein High blood pressure High cholesterol Sleep apnea Waldenstrom macroglobulinemia (HCC) 05/21/2020 PAST SURGICAL HISTORY Procedure Laterality Date COLONOSCOPY 2014 EGD PAST SURGICAL HISTORY OF 09/2014 rotator cuff right shoulder PAST SURGICAL HISTORY OF 2012 umbilical hernia PAST SURGICAL HISTORY OF 05/2015 tubes in ear as an adult Social History Tobacco Use Smoking status: Former Packs/day: 1.00 Years: 25.00 Total pack years: 25.00 Types: Cigarettes Quit date: 03/08/2018 Years since quittin.1 Smokeless tobacco: Never Tobacco comments: quit 2018 Vaping Use Vaping Use: Former Substance Use Topics Alcohol use: Not Currently Drug use: Not Currently FAMILY HISTORY Problem Relation Age of Onset Diabetes Mother living other (heart disease [Other]) Father Stroke Mother Multiple Sclerosis Sister Zeynep Burton, RECORDS TECHNICIAN.[employer] MUSIC TEACHER Hematology and Oncology Services Provided at: [place], [place] CC: Dr. Evan Eugene [address] [facility] [address] Dr. Joby Mays I spent a total of 30 minutes on the date of the service which included preparing to see the patient, [id number] patient care, completing clinical documentation, obtaining and/or reviewing separately obtained history, performing a medically appropriate examination, counseling and educating the pat ient/family/caregiver, ordering medications, tests, or procedures, independently interpreting results (not separately reported), and communicating results to the patient/family/caregiver. documented in this encounterC[facility]07-03-[facility]23 Miscellaneous Notes* Telephone Encounter - Cheyenne Quintero - 04/09/2023 4:04 PM EDT FMLA PAPERWORK SIGNED. Called patient and left a message that paperwork is ready to be picked up. Also stated that we are closed on April 10. Paperwork copied and placed in scanning. Cheyenne Quintero * Telephone Encounter - Leigh Manuel - 03/28/2023 3:19 PM EDT Disability paperwork completed and placed in folder to be signed. Leigh Manuel documented in this encounterCleveland [facility]06-15-2023 History of Present illness Narrative* SIDNEY Whittaker - 03/22/2023 2:21 PM EDT SOCIAL WORK FOLLOW UP NOTE: [facility] Date of service: 03/22/23 Kodi Rivas is being seen for a follow up social work visit. Today's visit includes: spouse and patient TOPICS ADDRESSED: Social Security Disability PLAN: Continue follow up as needed and Referral to community resource Assigned SW listed in Care Team tab: Yes SW met with the Patient and spouse after chemo education.SW provided Patient with information on toapply for SSD/SSDI including a checklist of documents required for the application. Information wasgiven for [employer] Disability [employer]. Other SSD handouts were also provided. Patient mentioned that he is planning to ask for FMLA from his employer of 34 years. Patient also has an [employer] plan that he could utilize for financial help while waiting to hear the outcome of his disability application. Patient also has access to his prison funds since he is 58 1/2 years old. SW encouraged Patient toreach out to this SW with any additional needs, questions or concerns. SW will remain available andwill follow up as appropriate. JF Whittaker documented in this encounterC[facility]06-15-2023 History of Present illness Narrative* Diana Leong RN - 03/22/2023 11:58 AM EDT ONCOLOGY PATIENT EDUCATION NOTE TOPIC: Monoclonal Antibody, Medications: Rituximab READINESS TO LEARN: COGNITIVE ABILITY: Alert and oriented MOTIVATION TO LEARN: Interested FAMILY SUPPORT: High - Very involved in pt care INSTRUCTION PROVIDED TO: Patient and Spouse INSTRUCTION PROVIDED BY: Nurse Coordinator PATIENT LEARNS BEST BY: Multiple Methods FACTORS AFFECTING LEARNING: None PHYSICAL LIMITATIONS AFFECTING LEARNING: None LEARNING RESPONSE DIAGNOSIS: Waldenstrom's METHOD OF INSTRUCTION: Individual instruction Written instruction - handouts Verbal instruction PATIENT/FAMILY RESPONSE: Verbalizes understanding of: INFECTION MANAGEMENT-Signs and symptoms of aninfection and importance of contacting the physician MEDICAL REGIMEN-Importance of following prescribed medical regimen MEDICATION SIDE EFFECTS-Side effects associated with the medication that warrant a call to the physician SYMPTOM MANAGEMENT-Correct actions to take to manage symptoms associated with his/her disease/illness WORSENING CONDITION-Signs and symptoms of a worsening condition that warrant a call to the physician Information received as demonstrated by interest and questions FOLLOW UP PLAN: Patient instructed to call with any further issues Contact information given. SUPPLEMENTAL MATERIAL: Written material was provided at this visit with the following information: - Monoclonal Antibody education was provided by a pharmacist NO - Side effect management information was provided/discussed including but not limited to: arthralgia, fatigue, headache, hypersensitivity reaction, infection, kidney toxicity, myalgia, nausea/vomitting, rash, shortness of breath, skin changes, tumor lysis syndrome YES - Provided important phone numbers and contacts during and after hours. YES - Provided information on symptoms that require immediate assistance. YES - Provided Monoclonal Antibody when to call handouts YES - Preventing infection. YES - Treatment schedule and confirmation of appointment times. YES - Available support groups. NA - The importance of contraception during the course of chemotherapy YES - Neutropenic fever protocol discussed with patient, which included the importance of reporting anyfever of 100.4F (38.0C) or greater to the healthcare team as noted on the provided wallet card and/or magnet. YES - Patient services information. YES Time Spent: 30 minutes REFERRAL (RECOMMENDATION): Nutrition - Discussed, but pt not interested at this time. 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 Diana Leong RN documented in this encounterC[facility]06-02-2023 Miscellaneous Notes* Telephone Encounter - Trini Gusman - 2023 4:42 PM EDT Patient has been scheduled for 03/14 with labs. Due to new symptoms, gave additional time. Trini Gusman * Telephone Encounter - Joon Piper MD - 2023 4:15 PM EDT Agree. Needs labs too. * Telephone Encounter - Kelly Rodriguez RN - 2023 11:43 AM EDT PSS: Please call and schedule the patient next week or the week after to see Dr. Piper to discuss issues. Thanks Wicho Rodriguez RN * Telephone Encounter - Kelly Rodriguez RN - 03/08/2023 11:03 AM EDT Patient calls stating he is having increased weakness, fatigue, wt. Loss, numbness and tingling in hands and feet, he would like to see you sooner then his scheduled may appointment. Ok to schedule with you sooner? Carl Mendoza documented in this encounterC[facility]05-05-2023 Instructions* Patient Instructions* Joon Piper MD - 02/09/2023 9:12 AM EDT Repeat Myeloma studies in 3 months, 1 week before follow up appointment. Follow up 1 week after labs. documented in this encounterC[facility]05-05-2023 History of Present illness Narrative* Joon Piper MD - 02/09/2023 8:57 AM EDT Images from the original note were not included. NAME: Kodi Rivas [employer] NO.: [id number] DATE OF SERVICE: February 09, 2023 (Veronique) Some elements in this clinic note that are critical to medical decision making have been carefully reviewed and included from a prior clinic note dated: November 10, 2022 (Micheal) Referring Provider: Dr. Harrison Mays CC: Follow up ASSESSMENT: 1. Waldenstrom macroglobulinemia 56-year-old gentleman with IgM kappa monoclonal gammopathy and anemia with fatigue. Dx'd with Waldenstrom Macroglobulinemia. Anti MAG ab's were negative. His symptoms of fatigue have improved since starting Rituxan and completing the first 4 weeks. We then treated him again week 17 through 20 as his symptoms returned. No symptoms of Waldenstrom's but prior concern with FUO and weight loss has resolved. PLAN: Repeat Myeloma studies in 3 months, 1 week before follow up appointment. Follow up 1 week after labs. TREATMENT TO DATE: 2. 09/23/2020- 10/21/2020: Rituxan weekly X 4 rechallenge 1. 05/27/2020-06/24/2020: Rituxan x 4 weekly HPI: Updated Visit, February 09, 2023: Feels good. Reviewed labs with him. No symptoms indicating need for treatment. Slight increase in M-spike Updated Visit, November 09, 2022: Kodi Rivas returns for follow-up. Since his last visit there has been no medical changes. He states that he is feeling good. He has some joint and bone pain which he states is old age . He deniesany fatigue. He denies fevers, chills, night sweats and signs/symptoms of infection. No bleeding orabnormal bruising. He offers no new complaints today. Updated Visit, August 11, 2022: Feels good and is going to [place] for his Honeymoon - got July 22, 2022. (Anisha) M-spike continues to be stable. Updated Visit, May 12, 2022: Kodi returns and seems to be doing well. No new symptoms Fatigue stable M-spike decreasing on it's own Updated Visit, February 10, 2022: Kodi Rivas returns for follow-up and to review recent labs. Since his last visit he was diagnosed with colitis. He was seen at [facility]. He developed blood in his stools. He was placed on an antibiotic which is now complete. He denies any unusual pain. He is urinating okay. His weight is stable. He is eating and drinking well. He denies fevers, chills and infections. He has occasional night sweats. He denies bleeding and abnormal bruising. No new palpable lumps or bumps. Overall, today he is feeling well with no new complaints. No new issues, problems or concerns. Updated Visit, November 14, 2021: Weight is recovering and FUO resolved. Labs are stable. Left anterior chest at the 2 O'Clock position from the nipple was a small palpable nodule slightly tender, mobile and less than 1 cm. He will watch to see that this resolve or change. Otherwise he isdoing well. He got engaged just before Madelin 2021. Updated Visit, August 11, 2021: Kodi Rivas is a 56 year old male seen for Waldenstrom's disease. Recent scans for neck pain and general malaise showed liver lesions confirmed on subsequent MRI to be benign hemangiomas. Symptoms have since resolved. Updated Visit, July 01, 2021: Kodi returns and all laboratory indices are improving. He is losing weight for unknown reason. Has soaking night sweats. Mild fatigue but not unusual for the amount of work he does. This is differentthan his symptoms associated with WMG. Symptoms not associated with Covid-19 Vaccination. Kendra is with hm today. His late Lorna had introduced them years ago. Updated Visit, April 01, 2021: Kodi is 56 years old and continues to do well following his second course of Rituxan completed in October 2020 for Jennifer Laura's macroglobulinemia that presents with fatigue as his primary symptom. Overall he is doing well. However, he is dealing with his left ear drainage is being managed by his primary care physician. He otherwise has no issues. M protein measures 0.19 which is the lowest has been since his initial diagnosis. Updated Visit, December 16, 2020: Kodi is 55 and completed his second 4 week course of Rituxan in mid October 2020. He has regained his energy and is doing well. Additionally, he has started a new relationship and is very happy. Serum / myeloma labs are pending, but counts are stable. Updated Visit, October 21, 2020: Kodi is 55 and returns to finish his last weekly dose of Rituxan weeks 17-20 with a one week delay from last week to recover from allergies that were causing severe itching in the eyes. Most symptoms have resolved. Sleep is really good. This week it seems like his fatigue is a little worse but is likely weather and seasonally related. Updated Visit, September 23, 2020: Patient returns today to rechallenge with weekly Rituxan X 4 after he originally responded well in June with resolution of his anemia and fatigue, but most recently in August his fatigue recurred. We postponed restarting Rituxan until he had his right inguinal repair, which was done on 09/15/[address] Combs at [facility]. He states this procedure went well and he is now recovered. He is feeling well other than fatigue. Denies headache, bloody nose, impaired vision, neuropathy, cough or shortness of breath. He did take Benadryl 50 mg PO and Tylenol at home as well this morning. Updated Visit, August 23, 2020: Kodi is 55 yo and felt great following his 1st 4 weeks of Rituximab for Waldenstrom's Macroglobulinemia but now has a profound recurrence of symptoms. We discussed treatment options of continuing Rituxan for 4 additional weekly doses which will be weeks 17-20 (Starting 09/23/2020 for 4 weeks). He has right inguinal hernia repair planned 09/15/2020 and we will commence treatment after. We can consider a short course of maintenance or add Ibrutinib in the future for relapsing symptoms. He has appointments September 08, 2020 for repeat labs which he will keep. We also discussed consideration of other causes of fatigue but he responded so nicely previously with reversal of symptoms that this is the most likely cause. Updated Visit, July 17, 2020: Kodi returns on Rituxan single agent for Waldenstrom's M. He has seemed to regain strength and energy and feels he is almost back to normal. We will finish his current course and at return of symptoms, we will add Ibrutinib to his second line. Updated Visit, June 10, 2020: Kodi is 55 years old and returns after having his first dose of Rituxan during which he had a pretty significant infusion reaction and was unable to complete the full dose. Following this, last week he got weak and hot at work and felt like he was going to pass out. He ended up sleeping for a wholeday, then got COVID testing (was negative) and two days later he had recovered. Unsure the etiology. He presents for his second dose today. Fatigue is unchanged. Updated Visit, May 27, 2020: Kodi is 55 yo and has Waldenstrom's macroglobulinemia. He comes in earlier than scheduled and is frustrated that his symptoms of fatigue and neuropathy are worse. He has elected to proceed with treatment using single agent Rituxan. Updated Visit, April 08, 2020: Kodi returns with his girlfriend to review his bone marrow biopsy results. Findings are consistent with Waldenstrom Macroglobulinemia. MYD88 +, Serum viscosity was 1.7. I cannot fully explain his neuropathy and will obtain Anti MAG antibodies. Updated Visit, March 24, 2020: Kodi is 55 yo and has what appears to have a primary bone marrow process that is concerning for either an IgM plasma cell disorder or a Lymphoplasmacytic lymphoma or Waldenstrom disease. He has numbness everywhere (and some tingling) mostly numbness seems to be getting worse over the past few months. He has no other clear causes. He may have some benefit from B12 supplementation, but will need a bone marrow biopsy to fully assess. Initial Visit, March 10, 2020: Kodi Rivas presents today Hematology and Oncology evaluation. He is a 55 year old male who presents for workup of anemia and elevated protein levels. 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 He is currently very fatigued d espite being on CPAP for sleep apnea and he also has some depression related to the passing of his 3 years ago in a car accident. He had a CT scan due to the weight loss that showed a pancreaticabnormality but overall negative study. He had an EGD and EUS which is unremarkable per his report.He also reports a prior history of pancreatitis in 2010. His last colonoscopy was in 2018 or 19 reported that it was clear that I see is also had a history of an adenomatous polyp. He had a serum protein immunologic pheresis obtained which came back abnormal. Labs from 03/03/2020 as follows CBC: 5.6 > 12.7/37.7 < 239, MCV 88.5, RDW 12.9, slightly decreased lymphocytes. Since findings show immunofixation demonstrating IgM monoclonal protein with kappa light chain specificity. Quantitative IgM 335 mg/dL IgG and IgA while decreased are within normal limits. Ferritin 30, B12 526, FT4 0.78, TSH 0.37, free T3 2 0.30, no clinically significant abnormalities on CMP with normal creatinine and normal calcium. REVIEW OF SYSTEMS Per HPI and otherwise negative by full review of organ systems. ECOG PERFORMANCE STATUS: 0 PHYSICAL EXAMINATION: Vitals: BP 147/73 Pulse 73 Temp (Src) 97.6 (Temporal) Resp 16 Ht 5' 9 (1.75m) Wt 177 lb 12.8 oz (80.7kg) SpO2 99% BMI 26.24 kg/(m^2). Body surface area is 1.98 meters squared. Exam limited to gross visualization where appropriate. Gen.: This is an age-appropriate patient in no acute distress. Looks thinner. Head: Appears atraumatic with no visible lesions. Eyes: Pupils equally round and reactive to light, extraocular muscles are intact. Neck: Supple. Mouth: Mucous membranes appeared to be moist. Respiratory: Appears to be respiring comfortably. Neurologic: Nonfocal to gross visualization. Alert and oriented 3. Psychiatric: No evidence of inappropriate anxiety or depression. Skin: Visible areas of skin without rash, lesions, wounds or petechiae. ALLERGIES: ALLERGIES Allergen Reactions Allopurinol Unknown Iothalamic Acid Unknown Reglan [Metoclopram* Mental Status Change Tetnus [Tetanus Vac* Anaphylaxis MEDICATIONS: ASMANEX TWISTHALER 110 mcg/ actuation (30) twisthaler amLODIPine (NORVASC) 10 mg tablet albuterol HFA (PROVENTIL HFA, VENTOLIN HFA) 90 mcg/actuation inhaler INHALE 2 PUFFS BY MOUTH NEEDED sildenafil (VIAGRA) 100 mg tablet Benazepril HCl 40 mg tablet Take 40 mg by mouth once daily. metFORMIN ER (FORTAMET) 500 mg 24 hr tablet Take 500 mg by mouth daily with dinner. sertraline (ZOLOFT) 100 mg tablet Take 100 mg by mouth twice daily. BENAZEPRIL HCL (BENAZEPRIL ORAL) Take 40 mg by mouth once daily. OMEPRAZOLE (PRILOSEC ORAL) Take 20 mg by mouth once daily. budesonide (PULMICORT FLEXHALER) 180 mcg/actuation aepb Inhale 2 Puffs as instructed twice daily. LORATADINE (CLARITIN ORAL) Take 10 mg by mouth as needed. amoxicillin-clavulanic acid (AUGMENTIN) 875-125 mg per tablet METFORMIN HCL (METFORMIN ORAL) Take 500 mg by mouth once daily. LABORATORY VALUES: WBC (k/uL) Date Value 02/02/2023 8.05 RBC (m/uL) Date Value 02/02/2023 4.89 Hemoglobin (g/dL) Date Value 02/02/2023 14.6 Hematocrit (%) Date Value 02/02/2023 42.5 MCV (fL) Date Value 02/02/2023 86.9 MCH (pg) Date Value 02/02/2023 29.9 MCHC (g/dL) Date Value 02/02/2023 34.4 RDW-CV (%) Date Value 02/02/2023 13.0 Platelet Count (k/uL) Date Value 02/02/2023 256 MPV (fL) Date Value 02/02/2023 9.7 Glucose (mg/dL) Date Value 02/02/2023 125 (H) BUN (mg/dL) Date Value 02/02/2023 18 Creatinine (mg/dL) Date Value 02/02/2023 0.98 Sodium (mmol/L) Date Value 02/02/2023 139 Potassium (mmol/L) Date Value 02/02/2023 4.2 Chloride (mmol/L) Date Value 02/02/2023 104 CO2 (mmol/L) Date Value 02/02/2023 28 Protein, Total (g/dL) Date Value 02/02/2023 6.8 02/02/2023 6.3 Albumin (g/dL) Date Value 02/02/2023 4.4 Calcium, Total (mg/dL) Date Value 02/02/2023 9.5 Alkaline Phosphatase (U/L) Date Value 02/02/2023 116 (H) Bilirubin, Total (mg/dL) Date Value 02/02/2023 0.3 AST (U/L) Date Value 02/02/2023 14 ALT (U/L) Date Value 02/02/2023 14 M-Protein Concentration Date Value 02/02/2023 0.15 g/dL 11/03/2022 0.00 g/dL 08/04/2022 0.18 g/dL 04/13/2022 0.19 g/dL 02/06/2022 0.21 g/dL 11/04/2021 0.21 gm/dL 07/19/2021 0.19 gm/dL 06/24/2021 0.17 gm/dL 03/18/2021 0.19 gm/dL 12/16/2020 0.24 gm/dL DIAGNOSIS: (C88.0) Waldenstrom macroglobulinemia (HCC) (primary encounter diagnosis) Plan: B2 MICROGLOBULIN B, CBC + DIFF, COMP METABOLIC PANEL, LD LACTATE DEHYDRO, PHOSPHORUS INORGANIC, PROTEIN ELECTROPHORESIS SERUM W/INTERP, MONOCLONAL PROTEIN, SERUM (BLOOD), URIC ACID BLOOD, CALCIUM IONIZED BLOOD, SERUM VISCOSITY, KAPPA/KING,FREE,SER (E11.42) Type 2 diabetes mellitus with diabetic polyneuropathy, without long- term current use of insulin (HCC) Plan: B2 MICROGLOBULIN B, CBC + DIFF, COMP METABOLIC PANEL, LD LACTATE DEHYDRO, PHOSPHORUS INORGANIC, PROTEIN ELECTROPHORESIS SERUM W/INTERP, MONOCLONAL PROTEIN, SERUM (BLOOD), URIC ACID BLOOD, CALCIUM IONIZED BLOOD, SERUM VISCOSITY, KAPPA/KING,FREE,SER PAST MEDICAL HISTORY Diagnosis Date Acid reflux Depression Diabetes (HCC) Elevated blood protein High blood pressure High cholesterol Sleep apnea Waldenstrom macroglobulinemia (HCC) 05/21/2020 PAST SURGICAL HISTORY Procedure Laterality Date COLONOSCOPY 2014 EGD PAST SURGICAL HISTORY OF 09/2014 rotator cuff right shoulder PAST SURGICAL HISTORY OF 2012 umbilical hernia PAST SURGICAL HISTORY OF 05/2015 tubes in ear as an adult Social History Tobacco Use Smoking status: Former Packs/day: 1.00 Years: 25.00 Pack years: 25.00 Types: Cigarettes Quit date: 03/08/2018 Years since quittin.9 Smokeless tobacco: Never Tobacco comments: quit 2018 Vaping Use Vaping Use: Former Substance Use Topics Alcohol use: Not Currently Drug use: Not Currently FAMILY HISTORY Problem Relation Age of Onset Diabetes Mother living other (heart disease [Other]) Father Stroke Mother Multiple Sclerosis Sister I spent a total of 20 minutes on the date of the service which included preparing to see the patient, [id number] patient care, completing clinical documentation, performing a medically appropriate examination, counseling and educating the patient/family/caregiver, ordering medications, tests, or p rocedures, and independently interpreting results (not separately reported). Joon Piper MD, CPE Hematology and Oncology Services Provided at: [place], [place] CC: Dr. Evan Eugene [address] [facility] [address] Dr. Joby Mays documented in this encounterCleveland [facility]04-24-[facility]23 Miscellaneous Notes* Telephone Encounter - Bryanna Rodriguez - 04/30/2023 10:16 AM EDT Patient called requesting that his [employer] paperwork be refax to [phone] they told him they never receive it. Also, patient requested a copy of the paperwork. Paperwork faxed with success. Bryanna Rodriguez MA documented in this encounterCleveland Clinic [facility]02-28-2023 Evaluation note* Encounter Date Diagnosis Assessment Notes Treatment Notes Treatment Clinical Notes Nov, Acute bronchitis due to other specified organisms (ICD-10 - J20.8) Instructed to use Robitussin or Mucinex for cough, saline or Flonase NS for congestion, Tylenol for pain and fever. Nov, Waldenstrom macroglobulinemia (ICD-10 - C88.0) Stable, f/u Hematology [place] [employer] Other 02-03-2023 History of Present illness Narrative* Zeynep Burton APRN.[employer] - 11/10/2022 9:26 AM EST Images from the original note were not included. NAME: Kodi Rivas CLINIC NO.: [id number] DATE OF SERVICE: November 10, 2022 (Micheal) Some elements in this clinic note that are critical to medical decision making have been carefully reviewed and included from a prior clinic note dated: August 11, 2022 (Dr. Piper) Referring Provider: Dr. Harrison Mays CC: Follow up ASSESSMENT: 1. Waldenstrom macroglobulinemia 56-year-old gentleman with IgM kappa monoclonal gammopathy and anemia with fatigue. Dx'd with Waldenstrom Macroglobulinemia. Anti MAG ab's were negative. His symptoms of fatigue have improved since starting Rituxan and completing the first 4 weeks. We then treated him again week 17 through 20 as his symptoms returned. No symptoms of Waldenstrom's but prior concern with FUO and weight loss has resolved. PLAN: Repeat Myeloma studies in 3 months, 1 week before follow up appointment. Follow up 1 week after labs. TREATMENT TO DATE: 2. 09/23/2020- 10/21/2020: Rituxan weekly X 4 rechallenge 1. 05/27/2020-06/24/2020: Rituxan x 4 weekly HPI: Updated Visit, November 09, 2022: Kodi Rivas returns for follow-up. Since his last visit there has been no medical changes. He states that he is feeling good. He has some joint and bone pain which he states is old age . He deniesany fatigue. He denies fevers, chills, night sweats and signs/symptoms of infection. No bleeding orabnormal bruising. He offers no new complaints today. Updated Visit, August 11, 2022: Feels good and is going to [place] for his Honeymoon - got July 22, 2022. M-spike continues to be stable. Updated Visit, May 12, 2022: Kodi returns and seems to be doing well. No new symptoms Fatigue stable M-spike decreasing on it's own Updated Visit, February 10, 2022: Kodi Rivas returns for follow-up and to review recent labs. Since his last visit he was diagnosed with colitis. He was seen at [facility]. He developed blood in his stools. He was placed on an antibiotic which is now complete. He denies any unusual pain. He is urinating okay. His weight is stable. He is eating and drinking well. He denies fevers, chills and infections. He has occasional night sweats. He denies bleeding and abnormal bruising. No new palpable lumps or bumps. Overall, today he is feeling well with no new complaints. No new issues, problems or concerns. Updated Visit, November 14, 2021: Weight is recovering and FUO resolved. Labs are stable. Left anterior chest at the 2 O'Clock position from the nipple was a small palpable nodule slightly tender, mobile and less than 1 cm. He will watch to see that this resolve or change. Otherwise he isdoing well. He got engaged just before 2020. Updated Visit, August 11, 2021: Kodi Rivas is a 56 year old male seen for Waldenstrom's disease. Recent scans for neck pain and general malaise showed liver lesions confirmed on subsequent MRI to be benign hemangiomas. Symptoms have since resolved. Updated Visit, July 01, 2021: Kodi returns and all laboratory indices are improving. He is losing weight for unknown reason. Has soaking night sweats. Mild fatigue but not unusual for the amount of work he does. This is differentthan his symptoms associated with WMG. Symptoms not associated with Covid-19 Vaccination. Kendra is with hm today. His late Lorna had introduced them years ago. Updated Visit, April 01, 2021: Kodi is 56 years old and continues to do well following his second course of Rituxan completed in October 2020 for Hunters Laura's macroglobulinemia that presents with fatigue as his primary symptom. Overall he is doing well. However, he is dealing with his left ear drainage is being managed by his primary care physician. He otherwise has no issues. M protein measures 0.19 which is the lowest has been since his initial diagnosis. Updated Visit, December 16, 2020: Kodi is 55 and completed his second 4 week course of Rituxan in mid October 2020. He has regained his energy and is doing well. Additionally, he has started a new relationship and is very happy. Serum / myeloma labs are pending, but counts are stable. Updated Visit, October 21, 2020: Kodi is 55 and returns to finish his last weekly dose of Rituxan weeks 17-20 with a one week delay from last week to recover from allergies that were causing severe itching in the eyes. Most symptoms have resolved. Sleep is really good. This week it seems like his fatigue is a little worse but is likely weather and seasonally related. Updated Visit, September 23, 2020: Patient returns today to rechallenge with weekly Rituxan X 4 after he originally responded well in June with resolution of his anemia and fatigue, but most recently in August his fatigue recurred. We postponed restarting Rituxan until he had his right inguinal repair, which was done on 09/15/[address] Combs at [facility]. He states this procedure went well and he is now recovered. He is feeling well other than fatigue. Denies headache, bloody nose, impaired vision, neuropathy, cough or shortness of breath. He did take Benadryl 50 mg PO and Tylenol at home as well this morning. Updated Visit, August 23, 2020: Kodi is 55 yo and felt great following his 1st 4 weeks of Rituximab for Waldenstrom's Macroglobulinemia but now has a profound recurrence of symptoms. We discussed treatment options of continuing Rituxan for 4 additional weekly doses which will be weeks 17-20 (Starting 09/23/2020 for 4 weeks). He has right inguinal hernia repair planned 09/15/2020 and we will commence treatment after. We can consider a short course of maintenance or add Ibrutinib in the future for relapsing symptoms. He has appointments September 08, 2020 for repeat labs which he will keep. We also discussed consideration of other causes of fatigue but he responded so nicely previously with reversal of symptoms that this is the most likely cause. Updated Visit, July 17, 2020: Kodi returns on Rituxan single agent for Waldenstrom's M. He has seemed to regain strength and energy and feels he is almost back to normal. We will finish his current course and at return of symptoms, we will add Ibrutinib to his second line. Updated Visit, June 10, 2020: Kodi is 55 years old and returns after having his first dose of Rituxan during which he had a pretty significant infusion reaction and was unable to complete the full dose. Following this, last week he got weak and hot at work and felt like he was going to pass out. He ended up sleeping for a wholeday, then got COVID testing (was negative) and two days later he had recovered. Unsure the etiology. He presents for his second dose today. Fatigue is unchanged. Updated Visit, May 27, 2020: Kodi is 55 yo and has Waldenstrom's macroglobulinemia. He comes in earlier than scheduled and is frustrated that his symptoms of fatigue and neuropathy are worse. He has elected to proceed with treatment using single agent Rituxan. Updated Visit, April 08, 2020: Kodi returns with his girlfriend to review his bone marrow biopsy results. Findings are consistent with Waldenstrom Macroglobulinemia. MYD88 +, Serum viscosity was 1.7. I cannot fully explain his neuropathy and will obtain Anti MAG antibodies. Updated Visit, March 24, 2020: Koid is 55 yo and has what appears to have a primary bone marrow process that is concerning for either an IgM plasma cell disorder or a Lymphoplasmacytic lymphoma or Waldenstrom disease. He has numbness everywhere (and some tingling) mostly numbness seems to be getting worse over the past few months. He has no other clear causes. He may have some benefit from B12 supplementation, but will need a bone marrow biopsy to fully assess. Initial Visit, March 10, 2020: Kodi Rivas presents today Hematology and Oncology evaluation. He is a 55 year old male who presents for workup of anemia and elevated protein levels. 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 He is currently very fatigued d espite being on CPAP for sleep apnea and he also has some depression related to the passing of his 3 years ago in a car accident. He had a CT scan due to the weight loss that showed a pancreaticabnormality but overall negative study. He had an EGD and EUS which is unremarkable per his report.He also reports a prior history of pancreatitis in 2010. His last colonoscopy was in 2018 or 19 reported that it was clear that I see is also had a history of an adenomatous polyp. He had a serum protein immunologic pheresis obtained which came back abnormal. Labs from 03/03/2020 as follows CBC: 5.6 > 12.7/37.7 < 239, MCV 88.5, RDW 12.9, slightly decreased lymphocytes. Since findings show immunofixation demonstrating IgM monoclonal protein with kappa light chain specificity. Quantitative IgM 335 mg/dL IgG and IgA while decreased are within normal limits. Ferritin 30, B12 526, FT4 0.78, TSH 0.37, free T3 2 0.30, no clinically significant abnormalities on CMP with normal creatinine and normal calcium. REVIEW OF SYSTEMS Per HPI and otherwise negative by full review of organ systems. ECOG PERFORMANCE STATUS: 0 PHYSICAL EXAMINATION: Vitals: BP 144/66 Pulse 77 Temp (Src) 97.2 (Temporal) Resp 16 Ht 5' 9.134 (1.76m) Wt 180lb (81.6kg) SpO2 99% BMI 26.48 kg/(m^2). Body surface area is 2 meters squared. Exam limited to gross visualization where appropriate due to COVID-19. Gen.: This is an age-appropriate patient in no acute distress. Looks thinner. Head: Appears atraumatic with no visible lesions. Eyes: Pupils equally round and reactive to light, extraocular muscles are intact. Neck: Supple. Mouth: Mucous membranes appeared to be moist. Respiratory: Appears to be respiring comfortably. Neurologic: Nonfocal to gross visualization. Alert and oriented 3. Psychiatric: No evidence of inappropriate anxiety or depression. Skin: Visible areas of skin without rash, lesions, wounds or petechiae. ALLERGIES: ALLERGIES Allergen Reactions Allopurinol Unknown Iothalamic Acid Unknown Reglan [Metoclopram* Mental Status Change Tetnus [Tetanus Vac* Anaphylaxis MEDICATIONS: ASMANEX TWISTHALER 110 mcg/ actuation (30) twisthaler amLODIPine (NORVASC) 10 mg tablet amoxicillin-clavulanic acid (AUGMENTIN) 875-125 mg per tablet albuterol HFA (PROVENTIL HFA, VENTOLIN HFA) 90 mcg/actuation inhaler INHALE 2 PUFFS BY MOUTH NEEDED sildenafil (VIAGRA) 100 mg tablet Benazepril HCl 40 mg tablet Take 40 mg by mouth once daily. metFORMIN ER (FORTAMET) 500 mg 24 hr tablet Take 500 mg by mouth daily with dinner. sertraline (ZOLOFT) 100 mg tablet Take 100 mg by mouth twice daily. METFORMIN HCL (METFORMIN ORAL) Take 500 mg by mouth once daily. BENAZEPRIL HCL (BENAZEPRIL ORAL) Take 40 mg by mouth once daily. OMEPRAZOLE (PRILOSEC ORAL) Take 20 mg by mouth once daily. budesonide (PULMICORT FLEXHALER) 180 mcg/actuation aepb Inhale 2 Puffs as instructed twice daily. LORATADINE (CLARITIN ORAL) Take 10 mg by mouth as needed. LABORATORY VALUES: Hemoglobin (g/dL) Date Value 11/03/2022 15.5 11/04/2021 15.8 Hematocrit (%) Date Value 11/03/2022 45.1 11/04/2021 46.9 WBC (k/uL) Date Value 11/03/2022 7.47 11/04/2021 8.02 Platelet Count (k/uL) Date Value 11/03/2022 252 11/04/2021 237 M-Protein Concentration Date Value 11/03/2022 0.00 g/dL 08/04/2022 0.18 g/dL 04/13/2022 0.19 g/dL 02/06/2022 0.21 g/dL 11/04/2021 0.21 gm/dL 07/19/2021 0.19 gm/dL 06/24/2021 0.17 gm/dL 03/18/2021 0.19 gm/dL 12/16/2020 0.24 gm/dL DIAGNOSIS: (C88.0) Waldenstrom macroglobulinemia (HCC) (primary encounter diagnosis) (D47.2) Monoclonal gammopathy (C83.00) Malignant lymphoma, lymphoplasmacytic (HCC) (D50.8) Other iron deficiency anemia (E11.42) Type 2 diabetes mellitus with diabetic polyneuropathy, without long- term current use of insulin (HCC) PAST MEDICAL HISTORY Diagnosis Date Acid reflux Depression Diabetes (HCC) Elevated blood protein High blood pressure High cholesterol Sleep apnea Waldenstrom macroglobulinemia (HCC) 05/21/2020 PAST SURGICAL HISTORY Procedure Laterality Date COLONOSCOPY 2014 EGD PAST SURGICAL HISTORY OF 09/2014 rotator cuff right shoulder PAST SURGICAL HISTORY OF 2012 umbilical hernia PAST SURGICAL HISTORY OF 05/2015 tubes in ear as an adult Social History Tobacco Use Smoking status: Former Packs/day: 1.00 Years: 25.00 Pack years: 25.00 Types: Cigarettes Quit date: 03/08/2018 Years since quittin.6 Smokeless tobacco: Never Tobacco comments: quit 2018 Vaping Use Vaping Use: Former Substance Use Topics Alcohol use: Not Currently Drug use: Not Currently FAMILY HISTORY Problem Relation Age of Onset Diabetes Mother living other (heart disease [Other]) Father Stroke Mother Multiple Sclerosis Sister Zeynep Burton APRN.[facility] Hematology and Oncology Services Provided at: [facility] [place] CC: Dr. Evan Eugene [address] [facility] [address] Dr. Joby Mays I spent a total of 30 minutes on the date of the service which included preparing to see the patient, [id number] patient care, completing clinical documentation, obtaining and/or reviewing separately obtained history, performing a medically appropriate examination, counseling and educating the pat ient/family/caregiver, ordering medications, tests, or procedures, independently interpreting results (not separately reported), and communicating results to the patient/family/caregiver. documented in this encounterC[facility]11-04-2022 Instructions* Patient Instructions* Joon Piper MD - 08/11/2022 9:54 AM EDT Repeat Myeloma studies in 3 months, 1 week before follow up appointment. RTC 1 week after labs. documented in this encounterCleveland Clinic [facility]11-04-2022 History of Present illness Narrative* Joon Piper MD - 08/11/2022 9:48 AM EDT Images from the original note were not included. NAME: Kodi Rivas CLINIC NO.: [id number] DATE OF SERVICE: August 11, 2022 ([facility]) Some elements in this clinic note that are critical to medical decision making have been carefully reviewed and included from a prior clinic note dated: May 12, 2022 (Veronique) Referring Provider: Dr. Harrison Mays CC: Follow up ASSESSMENT: 1. Waldenstrom macroglobulinemia 56-year-old gentleman with IgM kappa monoclonal gammopathy and anemia with fatigue. Dx'd with Waldenstrom Macroglobulinemia. Anti MAG ab's were negative. His symptoms of fatigue have improved since starting Rituxan and completing the first 4 weeks. We then treated him again week 17 through 20 as his symptoms returned. No symptoms of Waldenstrom's but prior concern with FUO and weight loss has resolved. PLAN: Repeat Myeloma studies in 3 months, 1 week before follow up appointment. RTC 1 week after labs. TREATMENT TO DATE: 2. 09/23/2020- 10/21/2020: Rituxan weekly X 4 rechallenge 1. 05/27/2020-06/24/2020: Rituxan x 4 weekly HPI: Updated Visit, August 11, 2022: Feels good and is going to [place] for his Honeymoon - got July 22, 2022. M-spike continues to be stable. Updated Visit, May 12, 2022: Kodi returns and seems to be doing well. No new symptoms Fatigue stable M-spike decreasing on it's own Updated Visit, February 10, 2022: Kodi Rivas returns for follow-up and to review recent labs. Since his last visit he was diagnosed with colitis. He was seen at [facility]. He developed blood in his stools. He was placed on an antibiotic which is now complete. He denies any unusual pain. He is urinating okay. His weight is stable. He is eating and drinking well. He denies fevers, chills and infections. He has occasional night sweats. He denies bleeding and abnormal bruising. No new palpable lumps or bumps. Overall, today he is feeling well with no new complaints. No new issues, problems or concerns. Updated Visit, November 14, 2021: Weight is recovering and FUO resolved. Labs are stable. Left anterior chest at the 2 O'Clock position from the nipple was a small palpable nodule slightly tender, mobile and less than 1 cm. He will watch to see that this resolve or change. Otherwise he isdoing well. He got engaged just before Madelin 2021. Updated Visit, August 11, 2021: Kodi Rivas is a 56 year old male seen for Waldenstrom's disease. Recent scans for neck pain and general malaise showed liver lesions confirmed on subsequent MRI to be benign hemangiomas. Symptoms have since resolved. Updated Visit, July 01, 2021: Kodi returns and all laboratory indices are improving. He is losing weight for unknown reason. Has soaking night sweats. Mild fatigue but not unusual for the amount of work he does. This is differentthan his symptoms associated with WMG. Symptoms not associated with Covid-19 Vaccination. Kendra is with hm today. His late Lorna had introduced them years ago. Updated Visit, April 01, 2021: Kodi is 56 years old and continues to do well following his second course of Rituxan completed in October 2020 for Jennifer Laura's macroglobulinemia that presents with fatigue as his primary symptom. Overall he is doing well. However, he is dealing with his left ear drainage is being managed by his primary care physician. He otherwise has no issues. M protein measures 0.19 which is the lowest has been since his initial diagnosis. Updated Visit, December 16, 2020: Kodi is 55 and completed his second 4 week course of Rituxan in mid October 2020. He has regained his energy and is doing well. Additionally, he has started a new relationship and is very happy. Serum / myeloma labs are pending, but counts are stable. Updated Visit, October 21, 2020: Kodi is 55 and returns to finish his last weekly dose of Rituxan weeks 17-20 with a one week delay from last week to recover from allergies that were causing severe itching in the eyes. Most symptoms have resolved. Sleep is really good. This week it seems like his fatigue is a little worse but is likely weather and seasonally related. Updated Visit, September 23, 2020: Patient returns today to rechallenge with weekly Rituxan X 4 after he originally responded well in June with resolution of his anemia and fatigue, but most recently in August his fatigue recurred. We postponed restarting Rituxan until he had his right inguinal repair, which was done on 09/15/[address] Combs at [facility]. He states this procedure went well and he is now recovered. He is feeling well other than fatigue. Denies headache, bloody nose, impaired vision, neuropathy, cough or shortness of breath. He did take Benadryl 50 mg PO and Tylenol at home as well this morning. Updated Visit, August 23, 2020: Kodi is 55 yo and felt great following his 1st 4 weeks of Rituximab for Waldenstrom's Macroglobulinemia but now has a profound recurrence of symptoms. We discussed treatment options of continuing Rituxan for 4 additional weekly doses which will be weeks 17-20 (Starting 09/23/2020 for 4 weeks). He has right inguinal hernia repair planned 09/15/2020 and we will commence treatment after. We can consider a short course of maintenance or add Ibrutinib in the future for relapsing symptoms. He has appointments September 08, 2020 for repeat labs which he will keep. We also discussed consideration of other causes of fatigue but he responded so nicely previously with reversal of symptoms that this is the most likely cause. Updated Visit, July 17, 2020: Kodi returns on Rituxan single agent for Waldenstrom's M. He has seemed to regain strength and energy and feels he is almost back to normal. We will finish his current course and at return of symptoms, we will add Ibrutinib to his second line. Updated Visit, June 10, 2020: Kodi is 55 years old and returns after having his first dose of Rituxan during which he had a pretty significant infusion reaction and was unable to complete the full dose. Following this, last week he got weak and hot at work and felt like he was going to pass out. He ended up sleeping for a wholeday, then got COVID testing (was negative) and two days later he had recovered. Unsure the etiology. He presents for his second dose today. Fatigue is unchanged. Updated Visit, May 27, 2020: Kodi is 55 yo and has Waldenstrom's macroglobulinemia. He comes in earlier than scheduled and is frustrated that his symptoms of fatigue and neuropathy are worse. He has elected to proceed with treatment using single agent Rituxan. Updated Visit, April 08, 2020: Kodi returns with his girlfriend to review his bone marrow biopsy results. Findings are consistent with Waldenstrom Macroglobulinemia. MYD88 +, Serum viscosity was 1.7. I cannot fully explain his neuropathy and will obtain Anti MAG antibodies. Updated Visit, March 24, 2020: Kodi is 55 yo and has what appears to have a primary bone marrow process that is concerning for either an IgM plasma cell disorder or a Lymphoplasmacytic lymphoma or Waldenstrom disease. He has numbness everywhere (and some tingling) mostly numbness seems to be getting worse over the past few months. He has no other clear causes. He may have some benefit from B12 supplementation, but will need a bone marrow biopsy to fully assess. Initial Visit, March 10, 2020: Kodi Rivas presents today Hematology and Oncology evaluation. He is a 55 year old male who presents for workup of anemia and elevated protein levels. 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 He is currently very fatigued d espite being on CPAP for sleep apnea and he also has some depression related to the passing of his 3 years ago in a car accident. He had a CT scan due to the weight loss that showed a pancreaticabnormality but overall negative study. He had an EGD and EUS which is unremarkable per his report.He also reports a prior history of pancreatitis in 2010. His last colonoscopy was in 2018 or 19 reported that it was clear that I see is also had a history of an adenomatous polyp. He had a serum protein immunologic pheresis obtained which came back abnormal. Labs from 03/03/2020 as follows CBC: 5.6 > 12.7/37.7 < 239, MCV 88.5, RDW 12.9, slightly decreased lymphocytes. Since findings show immunofixation demonstrating IgM monoclonal protein with kappa light chain specificity. Quantitative IgM 335 mg/dL IgG and IgA while decreased are within normal limits. Ferritin 30, B12 526, FT4 0.78, TSH 0.37, free T3 2 0.30, no clinically significant abnormalities on CMP with normal creatinine and normal calcium. REVIEW OF SYSTEMS Per HPI and otherwise negative by full review of organ systems. ECOG PERFORMANCE STATUS: 0 PHYSICAL EXAMINATION: Vitals: BP 128/75 Pulse 72 Temp (Src) 97.1 (Temporal) Resp 16 Ht 5' 9.134 (1.76m) Wt 181lb 12.8 oz (82.5kg) SpO2 99% BMI 26.74 kg/(m^2). Body surface area is 2.01 meters squared. Exam limited to gross visualization where appropriate due to COVID-19. Gen.: This is an age-appropriate patient in no acute distress. Looks thinner. Head: Appears atraumatic with no visible lesions. Eyes: Pupils equally round and reactive to light, extraocular muscles are intact. Neck: Supple. Mouth: Mucous membranes appeared to be moist. Respiratory: Appears to be respiring comfortably. Neurologic: Nonfocal to gross visualization. Alert and oriented 3. Psychiatric: No evidence of inappropriate anxiety or depression. Skin: Visible areas of skin without rash, lesions, wounds or petechiae. ALLERGIES: ALLERGIES Allergen Reactions Allopurinol Unknown Iothalamic Acid Unknown Reglan [Metoclopram* Mental Status Change Tetnus [Tetanus Vac* Anaphylaxis MEDICATIONS: ASMANEX TWISTHALER 110 mcg/ actuation (30) twisthaler amLODIPine (NORVASC) 10 mg tablet amoxicillin-clavulanic acid (AUGMENTIN) 875-125 mg per tablet albuterol HFA (PROVENTIL HFA, VENTOLIN HFA) 90 mcg/actuation inhaler INHALE 2 PUFFS BY MOUTH NEEDED sildenafil (VIAGRA) 100 mg tablet Benazepril HCl 40 mg tablet Take 40 mg by mouth once daily. metFORMIN ER (FORTAMET) 500 mg 24 hr tablet Take 500 mg by mouth daily with dinner. sertraline (ZOLOFT) 100 mg tablet Take 100 mg by mouth twice daily. BENAZEPRIL HCL (BENAZEPRIL ORAL) Take 40 mg by mouth once daily. OMEPRAZOLE (PRILOSEC ORAL) Take 20 mg by mouth once daily. budesonide (PULMICORT FLEXHALER) 180 mcg/actuation aepb Inhale 2 Puffs as instructed twice daily. LORATADINE (CLARITIN ORAL) Take 10 mg by mouth as needed. METFORMIN HCL (METFORMIN ORAL) Take 500 mg by mouth once daily. LABORATORY VALUES: WBC (k/uL) Date Value 08/04/2022 8.35 RBC (m/uL) Date Value 08/04/2022 4.60 Hemoglobin (g/dL) Date Value 08/04/2022 14.0 Hematocrit (%) Date Value 08/04/2022 40.4 MCV (fL) Date Value 08/04/2022 87.8 MCH (pg) Date Value 08/04/2022 30.4 MCHC (g/dL) Date Value 08/04/2022 34.7 RDW-CV (%) Date Value 08/04/2022 13.2 Platelet Count (k/uL) Date Value 08/04/2022 243 MPV (fL) Date Value 08/04/2022 10.0 Glucose (mg/dL) Date Value 08/04/2022 183 (H) BUN (mg/dL) Date Value 08/04/2022 19 Creatinine (mg/dL) Date Value 08/04/2022 0.86 Sodium (mmol/L) Date Value 08/04/2022 140 Potassium (mmol/L) Date Value 08/04/2022 3.9 Chloride (mmol/L) Date Value 08/04/2022 104 CO2 (mmol/L) Date Value 08/04/2022 27 Protein, Total (g/dL) Date Value 08/04/2022 6.6 08/04/2022 6.5 Albumin (g/dL) Date Value 08/04/2022 4.3 Calcium, Total (mg/dL) Date Value 08/04/2022 9.3 Alkaline Phosphatase (U/L) Date Value 08/04/2022 116 (H) Bilirubin, Total (mg/dL) Date Value 08/04/2022 0.2 AST (U/L) Date Value 08/04/2022 15 ALT (U/L) Date Value 08/04/2022 14 M-Protein Concentration Date Value 08/04/2022 0.18 g/dL 04/13/2022 0.19 g/dL 02/06/2022 0.21 g/dL 11/04/2021 0.21 gm/dL 07/19/2021 0.19 gm/dL 06/24/2021 0.17 gm/dL 03/18/2021 0.19 gm/dL 12/16/2020 0.24 gm/dL DIAGNOSIS: (C88.0) Waldenstrom macroglobulinemia (HCC) (primary encounter diagnosis) Plan: B2 MICROGLOBULIN B, CBC + DIFF, COMP METABOLIC PANEL, LD LACTATE DEHYDRO, PHOSPHORUS INORGANIC, PROTEIN ELECTROPHORESIS SERUM W/INTERP, MONOCLONAL PROTEIN, SERUM (BLOOD), URIC ACID BLOOD, CALCIUM IONIZED BLOOD, KAPPA/KING,FREE,SER, SERUM VISCOSITY (E11.42) Type 2 diabetes mellitus with diabetic polyneuropathy, without long- term current use of insulin (HCC) PAST MEDICAL HISTORY Diagnosis Date Acid reflux Depression Diabetes (HCC) Elevated blood protein High blood pressure High cholesterol Sleep apnea Waldenstrom macroglobulinemia (HCC) 05/21/2020 PAST SURGICAL HISTORY Procedure Laterality Date COLONOSCOPY 2014 EGD PAST SURGICAL HISTORY OF 09/2014 rotator cuff right shoulder PAST SURGICAL HISTORY OF 2012 umbilical hernia PAST SURGICAL HISTORY OF 05/2015 tubes in ear as an adult Social History Tobacco Use Smoking status: Former Packs/day: 1.00 Years: 25.00 Pack years: 25.00 Types: Cigarettes Quit date: 03/08/2018 Years since quittin.4 Smokeless tobacco: Never Tobacco comments: quit 2017 Vaping Use Vaping Use: Former Substance Use Topics Alcohol use: Not Currently Drug use: Not Currently FAMILY HISTORY Problem Relation Age of Onset Diabetes Mother living other (heart disease [Other]) Father Stroke Mother Multiple Sclerosis Sister I spent a total of 30 minutes on the date of the service which included preparing to see the patient, [id number] patient care, completing clinical documentation, performing a medically appropriate examination, counseling and educating the patient/family/caregiver, and ordering medications, tests,or procedures. Joon Piper MD, CPE Hematology and Oncology Services Provided at: [place], [place] CC: Dr. Evan Eugene [address] [facility] [address] [address]. Joby Mays documented in this encounterCleveland [facility]09-22-2022 NotePROCEDURE: XR KNEE LT 3V HISTORY: Pain of left knee joint ; medial knee pain for one year, no known injury COMPARISON: None. FINDINGS: BONES:No fracture, acute abnormality, or significant arthropathy. SOFT TISSUES:No visible soft tissue swelling. EFFUSION:None visible. OTHER: Negative. IMPRESSION: 1. Normal examination. Electronically authenticated by: MENDY BIRMINGHAM Date: 2022-06-29 08:28[facility]08-05-2022 Instructions* Patient Instructions* Joon Piper MD - 05/12/2022 9:43 AM EDT - Labs/Path: 1. Repeat Myeloma studies in 3 months, 1 week before follow up appointment. - Return/Referrals: 1. RTC 1 week after labs. documented in this encounterCleveland Clinic [facility]08-05-2022 Nurse Note* Anita Monsalve MA - 05/12/2022 9:05 AM EDT Patient was Covid Positive April 23 now negative. He states he has been more fatigued even prior to Covid diagnosis. Anita Monsalve MA documented in this encounterCleveland Clinic [facility]08-05-2022 History of Present illness Narrative* Joon Piper MD - 05/12/2022 9:00 AM EDT NAME: Kodi Rivas [employer] NO.: [id number] DATE OF SERVICE: May 12, 2022 Some elements in this clinic note that are critical to medical decision making have been carefully reviewed and included from a prior clinic note dated: February 10, 2022 Referring Provider: Dr. Harrison Mays CC: Follow up ASSESSMENT: 1. Waldenstrom macroglobulinemia 56-year-old gentleman with IgM kappa monoclonal gammopathy and anemia with fatigue. Dx'd with Waldenstrom Macroglobulinemia. Anti MAG ab's were negative. His symptoms of fatigue have improved since starting Rituxan and completing the first 4 weeks. We then treated him again week 17 through 20 as his symptoms returned. No symptoms of Waldenstrom's but prior concern with FUO and weight loss has resolved. PLAN: - Labs/Path: 1. Repeat Myeloma studies in 3 months, 1 week before follow up appointment. - Return/Referrals: 1. RTC 1 week after labs. TREATMENT TO DATE: 2. 09/23/2020- 10/21/2020: Rituxan weekly X 4 rechallenge 1. 05/27/2020-06/24/2020: Rituxan x 4 weekly HPI: Updated Visit, May 12, 2022: Kodi returns and seems to be doing well. No new symptoms Fatigue stable M-spike decreasing on it's own Updated Visit, February 10, 2022: Kodi Rivas returns for follow-up and to review recent labs. Since his last visit he was diagnosed with colitis. He was seen at [facility]. He developed blood in his stools. He was placed on an antibiotic which is now complete. He denies any unusual pain. He is urinating okay. His weight is stable. He is eating and drinking well. He denies fevers, chills and infections. He has occasional night sweats. He denies bleeding and abnormal bruising. No new palpable lumps or bumps. Overall, today he is feeling well with no new complaints. No new issues, problems or concerns. Updated Visit, November 14, 2021: Weight is recovering and FUO resolved. Labs are stable. Left anterior chest at the 2 O'Clock position from the nipple was a small palpable nodule slightly tender, mobile and less than 1 cm. He will watch to see that this resolve or change. Otherwise he isdoing well. He got engaged just before 2020. Updated Visit, August 11, 2021: Kodi Rivas is a 56 year old male seen for Waldenstrom's disease. Recent scans for neck pain and general malaise showed liver lesions confirmed on subsequent MRI to be benign hemangiomas. Symptoms have since resolved. Updated Visit, July 01, 2021: Kodi returns and all laboratory indices are improving. He is losing weight for unknown reason. Has soaking night sweats. Mild fatigue but not unusual for the amount of work he does. This is differentthan his symptoms associated with [facility]G. Symptoms not associated with Covid-19 Vaccination. Kendra is with hm today. His late Lorna had introduced them years ago. Updated Visit, April 01, 2021: Kodi is 56 years old and continues to do well following his second course of Rituxan completed in October 2020 for Hunters Laura's macroglobulinemia that presents with fatigue as his primary symptom. Overall he is doing well. However, he is dealing with his left ear drainage is being managed by his primary care physician. He otherwise has no issues. M protein measures 0.19 which is the lowest has been since his initial diagnosis. Updated Visit, December 16, 2020: Kodi is 55 and completed his second 4 week course of Rituxan in mid October 2020. He has regained his energy and is doing well. Additionally, he has started a new relationship and is very happy. Serum / myeloma labs are pending, but counts are stable. Updated Visit, October 21, 2020: Kodi is 55 and returns to finish his last weekly dose of Rituxan weeks 17-20 with a one week delay from last week to recover from allergies that were causing severe itching in the eyes. Most symptoms have resolved. Sleep is really good. This week it seems like his fatigue is a little worse but is likely weather and seasonally related. Updated Visit, September 23, 2020: Patient returns today to rechallenge with weekly Rituxan X 4 after he originally responded well in June with resolution of his anemia and fatigue, but most recently in August his fatigue recurred. We postponed restarting Rituxan until he had his right inguinal repair, which was done on 09/15/[address] Combs at [facility]. He states this procedure went well and he is now recovered. He is feeling well other than fatigue. Denies headache, bloody nose, impaired vision, neuropathy, cough or shortness of breath. He did take Benadryl 50 mg PO and Tylenol at home as well this morning. Updated Visit, August 23, 2020: Kodi is 55 yo and felt great following his 1st 4 weeks of Rituximab for Waldenstrom's Macroglobulinemia but now has a profound recurrence of symptoms. We discussed treatment options of continuing Rituxan for 4 additional weekly doses which will be weeks 17-20 (Starting 09/23/2020 for 4 weeks). He has right inguinal hernia repair planned 09/15/2020 and we will commence treatment after. We can consider a short course of maintenance or add Ibrutinib in the future for relapsing symptoms. He has appointments September 08, 2020 for repeat labs which he will keep. We also discussed consideration of other causes of fatigue but he responded so nicely previously with reversal of symptoms that this is the most likely cause. Updated Visit, July 17, 2020: Kodi returns on Rituxan single agent for Waldenstrom's M. He has seemed to regain strength and energy and feels he is almost back to normal. We will finish his current course and at return of symptoms, we will add Ibrutinib to his second line. Updated Visit, June 10, 2020: Kodi is 55 years old and returns after having his first dose of Rituxan during which he had a pretty significant infusion reaction and was unable to complete the full dose. Following this, last week he got weak and hot at work and felt like he was going to pass out. He ended up sleeping for a wholeday, then got COVID testing (was negative) and two days later he had recovered. Unsure the etiology. He presents for his second dose today. Fatigue is unchanged. Updated Visit, May 27, 2020: Kodi is 55 yo and has Waldenstrom's macroglobulinemia. He comes in earlier than scheduled and is frustrated that his symptoms of fatigue and neuropathy are worse. He has elected to proceed with treatment using single agent Rituxan. Updated Visit, April 08, 2020: Kodi returns with his girlfriend to review his bone marrow biopsy results. Findings are consistent with Waldenstrom Macroglobulinemia. MYD88 +, Serum viscosity was 1.7. I cannot fully explain his neuropathy and will obtain Anti MAG antibodies. Updated Visit, March 24, 2020: Kodi is 55 yo and has what appears to have a primary bone marrow process that is concerning for either an IgM plasma cell disorder or a Lymphoplasmacytic lymphoma or Waldenstrom disease. He has numbness everywhere (and some tingling) mostly numbness seems to be getting worse over the past few months. He has no other clear causes. He may have some benefit from B12 supplementation, but will need a bone marrow biopsy to fully assess. Initial Visit, March 10, 2020: Kodi Rivas presents today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 macroglobulinemia- Primary Macroglobulinemia documented [facility] this [facility]* Diagnosis Waldenstrom 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 Malaise and fatigue Other malaise and fatigue [facility]* Diagnosis Waldenstrom macroglobulinemia- Primary Macroglobulinemia documented [facility]* Diagnosis Obstructive sleep apnea- Primary Obstructive sleep apnea (adult) (pediatric) [facility]* Diagnosis TIANNA (obstructive sleep apnea)- Primary Obstructive sleep apnea (adult) (pediatric) [facility] Diagnosis TIANNA (obstructive sleep apnea)- Primary Obstructive sleep apnea (adult) (pediatric) Hypersomnia Hypersomnia, unspecified Snoring Other dyspnea and respiratory abnormality Fatigue, unspecified type [facility]* Diagnosis Obstructive sleep apnea- Primary Obstructive sleep apnea (adult) (pediatric) [facility]* Diagnosis Waldenstrom macroglobulinemia- Primary Macroglobulinemia documented [facility]* Diagnosis Onset Date Resolution Status Admit Date Asthma acute November 11, 2024 8:54am Benign prostatic hyperplasia with lower urinary tract symptoms acute Feb ruary 2024 8:54am HTN (hypertension) acute Februa 2024 8:54am Hypercholesterolemia acute Febr uary 2024 8:54am Major depression acute November 11, 2024 8:54am Nicotine dependence acute Febru michelle 2024 8:54am TIANNA (obstructive sleep apnea) acute November 11, 2024 8:54am Strain of cervical portion o f left trapezius muscle acute November 11, 025 8:54am Type 2 diabetes mellitus wit h hyperglycemia acute November 11 8:54am [facility] Work Phone: Evaluation note* Diagnosis Waldenstrom 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 [facility]* Diagnosis TIANNA (obstructive sleep apnea)- Primary Obstructive sleep apnea (adult) (pediatric) Hypersomnia Hypersomnia, unspecified Snoring Other dyspnea and respiratory abnormality Numbness Disturbance of skin sensation [facility] Diagnosis Infected epidermoid cyst- Primary [facility] Diagnosis Encounter for colonoscopy due to history of colonic polyp- Primary Gastroesophageal reflux disease, unspecified whether esophagitis present History of colon polyps [facility]* Diagnosis Epidermoid cyst of skin of chest- Primary [facility] Narrative - Reported* Type Description Date Medical History Hypertension Medical History asthma Medical History allergies Medical History anxiety Medical History hyperlipidemia Medical History Esophageal reflux Surgical History wisdom teeth Surgical History colonoscopy Surgical History ambilical hernia Surgical History rt rotater cup Surgical History tubes in bilateral ears Hospitalization History see above [employer] Other History general Narrative - Reported* Type Description Date Medical History Hypertension Medical History asthma Medical History allergies Medical History anxiety Medical History hyperlipidemia Medical History Esophageal reflux Surgical History wisdom teeth Surgical History colonoscopy Surgical History ambilical hernia Surgical History rt rotater cup Surgical History tubes in bilateral ears Surgical History Colonoscopy, repeat 5 years 201 8 Hospitalization History see above [employer] Other InstructionsNot on filedocumented in this encounter [facility] filedocumented in this [facility] filedocumented in this [facility] filedocumented in this encounter [facility] filedocumented in this [facility] Summary Purpose Family History Relationship Condition Age at Onset Recorded Date/T linus father Unknown Relationship Condition Age at Onset Recorded Date/T linus father Unknown Hypertension Unknown Coronary artery disease Unknown mother Diabetes mellitus Unknown Cerebrovascular accident (CVA) Unknown sister Multiple sclerosis Unknown Advance Directives Documents on File Type Date Recorded Patient Photo Checker Expl anation Advance Directive(s) 09/26/2016 11:57 AM Advance Directive Response Recorded Date/ Time Advance Directives No June 9:01pm Advance Directive Response Recorded Date/ Time Advance Directives No June 8:01pm Medications Administered Section Inactive Administered Medications - up to 3 most recent administrations Medication Order MAR Action Action Date Dose Rate Site riTUXimab-pvvr 700 mg in NaCl 0.9% 610 mL (RUXIENCE) 700 mg (rounded from 738.75 mg = 375 mg/m2 1.97 m2 Treatment Plan BSA from Recorded weight), INTRAVENOUS, ONCE, 1 dose, On Sun04/18/23 at 1030, EXP: 04/27/23 1000 Initiate infusion at a rate of 50 mg/hr. In the absence of infusion toxicity, increase infusion rate by 50 mg/hr increments every 30 minutes, to a maximum of 400 mg/hr Refrigerate. Rate/Dose Change 04/18/2023 3:20 PM EDT 3 05 mL/hr Rate/Dose Change 04/18/2023 2:50 PM EDT 261 mL/ hr Rate/Dose Change 04/18/2023 2:20 PM EDT 218 mL/ hr Inactive Administered Medications - up to 3 most recent administrations Medication Order MAR Action Action Date Dose Rate Site riTUXimab-pvvr 700 mg in NaCl 0.9% 610 mL (RUXIENCE) 700 mg (rounded from 738.75 mg = 375 mg/m2 1.97 m2 Treatment Plan BSA from Recorded weight), INTRAVENOUS, ONCE, 1 dose, On Sun05/02/23 at 0930, EXP: 05/11/23 0900 Infuse at rate of 100mg/hr. If no hypotension, increase rate every 30 minutes by 100mg/hr to a maximum rate of 400mg/hr. Refrigerate., Medication Substitution: [facility] preferred product has been replaced with the insurance mandated product Rate/Dose Change 05/02/2023 11:40 AM EDT 349 mL/hr Rate/Dose Change 05/02/2023 11:10 AM EDT 261 mL /hr Rate/Dose Change 05/02/2023 10:40 AM EDT 174 mL /hr Inactive Administered Medications - up to 3 most recent administrations Medication Order MAR Action Action Date Dose Rate Site riTUXimab-pvvr 700 mg in NaCl 0.9% 610 mL (RUXIENCE) 700 mg (rounded from 738.75 mg = 375 mg/m2 1.97 m2 Treatment Plan BSA from Recorded weight), INTRAVENOUS, ONCE, 1 dose, On Sun05/09/23 at 0930, EXP: 0930 05/10/23 Initiate infusion at a rate of 100 mg/hr. In the absence of infusion toxicity, increase rate by 100 mg/hr increments at 30-minute intervals, to a maximum of 400 mg/hr Refrigerate., Medication Substitution: [facility] preferred product has been replaced with the insurance mandated product Rate/Dose Change 05/09/2023 11:27 AM EDT 349 mL/hr Rate/Dose Change 05/09/2023 10:56 AM EDT 261 mL /hr Rate/Dose Change 05/09/2023 10:26 AM EDT 174 mL /hr Reason for Referral Specialty Diagnoses / Procedures Referred By Contac t Referred To Contact MR IMAGING Diagnoses Neoplasm of uncertain behavior of liver, gallbladder, and bile ducts Abnormal CT of the abdomen Procedures MRI LIVER WO/W IVCON MRI,ABDOMEN,W&WO Joon Coe MD [address] [place] [address] [place] [address] [place] [id number] Referral ID Status Reason Start Date Expiration Date V isits Requested Visits Authorized [id number] Closed Auto-Generate d Referral 07/22/2021 09/05/2021 1 1 Chief Complaint and Reason for Visit Chief Complaint neck pain Reason for Visit Asthma GERD (gastroesophageal reflux disease) HTN (hypertension) Hypercholesterolemia Major depression Neck pain Nicotine dependence TIANNA (obstructive sleep apnea) Type 2 diabetes mellitus with hyperglycemia Screening PSA (prostate specific antigen) Wellness examination Chief Complaint neck pain finger tips lac Reason for Visit Asthma GERD (gastroesophageal reflux disease) HTN (hypertension) Hypercholesterolemia Major depression Neck pain Nicotine dependence TIANNA (obstructive sleep apnea) Type 2 diabetes mellitus with hyperglycemia Screening PSA (prostate specific antigen) Wellness examination Chief Complaint Admit Date Sleep Apnea August 29, 2024 1:51pm Sleep Apnea September 12, 2024 6 :00am 6 month f/u-HIGH RISK November 11, 2024 8:54am Reason for Visit Admit Date Asthma November 11, 2024 8 :54am Benign prostatic hyperplasia with lower urinary tract symptoms November 11, 2024 8:54am HTN (hypertension) November 11, 2024 8 :54am Hypercholesterolemia November 11, 2024 8:54am Major depression November 11, 2024 8 :54am Nicotine dependence November 11, 2024 8 :54am TIANNA (obstructive sleep apnea) November 112024 8:54am Strain of cervical portion of left trape zius muscle November 11, 2024 8:54am Type 2 diabetes mellitus with hyperglyce nikita November 11, 2024 8:54am Additional Source Comments (unrecognized sect ion and content) No Status Records FoundNo Status Records FoundNo Status Records FoundNo Status Records FoundNo Status Records FoundNo Status Records FoundNo Status Records FoundNo Status Records FoundNo Status Records FoundNo Status Records FoundNo Status Records Found INFORMATION SOURCE (unrecogn ized section and content) DATE CREATED AUTHOR 04/03/2018 [facility] DATE CREATED AUTHOR AUTHOR'S ORGANIZ ATION 04/29/2018 [facility] DATE CREATED AUTHOR AUTHOR'S ORGANIZ ATION 04/16/2021 [facility] DATE CREATED AUTHOR AUTHOR'S ORGANIZ ATION 07/30/2022 [facility] DATE CREATED AUTHOR AUTHOR'S ORGANIZ ATION 10/05/2022 [facility] DATE CREATED AUTHOR AUTHOR'S ORGANIZ ATION 07/26/2023 [facility] DATE CREATED AUTHOR AUTHOR'S ORGANIZ ATION 06/26/2024 [facility] DATE CREATED AUTHOR AUTHOR'S ORGANIZ ATION 06/30/2024 [facility] DATE CREATED AUTHOR AUTHOR'S ORGANIZ ATION 10/04/2024 [facility] DATE CREATED AUTHOR AUTHOR'S ORGANIZ ATION 11/14/2024 [facility] DATE CREATED AUTHOR AUTHOR'S ORGANIZ ATION 11/18/2024 [facility] Source Comments (unrecognize d section and content) In the event this informatio n is protected by the Federal Confidentiality of Alcohol and Drug Abuse Patient Records regulations: The Federal rules restrict any use of the information to criminally investigate or prosecute any alcohol or drug abuse patient.[facility] the event this information is protected by the Federal Confidentiality of Alcohol and Drug Abuse Patient Records regulations: The Federal rules restrict any use of the information to criminally investigate or prosecute any alcohol or drug abuse patient.[facility] HospitalIn the event this information is protected by the Federal Confidentiality of Alcohol and Drug Abuse Patient Records regulations: The Federal rules restrict any use of the information to criminally investigate or prosecute any alcohol or drug abuse patient.[facility] HospitalIn the event this information is protected by the Federal Confidentiality of Alcohol and Drug Abuse Patient Records regulations: The Federal rules restrict any use of the information to criminally investigate or prosecute any alcohol or drug abuse patient.[facility] HospitalIn the event this information is protected by the Federal Confidentiality of Alcohol and Drug Abuse Patient Records regulations: The Federal rules restrict any use of the information to criminally investigate or prosecute any alcohol or drug abuse patient.[facility] HospitalIn the event this information is protected by the Federal Confidentiality of Alcohol and Drug Abuse Patient Records regulations: The Federal rules restrict any use of the information to criminally investigate or prosecute any alcohol or drug abuse patient.[facility] HospitalIn the event this information is protected by the Federal Confidentiality of Alcohol and Drug Abuse Patient Records regulations: The Federal rules restrict any use of the information to criminally investigate or prosecute any alcohol or drug abuse patient.[facility] HospitalIn the event this information is protected by the Federal Confidentiality of Alcohol and Drug Abuse Patient Records regulations: The Federal rules restrict any use of the information to criminally investigate or prosecute any alcohol or drug abuse patient.[facility] HospitalIn the event this information is protected by the Federal Confidentiality of Alcohol and Drug Abuse Patient Records regulations: The Federal rules restrict any use of the information to criminally investigate or prosecute any alcohol or drug abuse patient.[facility] HospitalIn the event this information is protected by the Federal Confidentiality of Alcohol and Drug Abuse Patient Records regulations: The Federal rules restrict any use of the information to criminally investigate or prosecute any alcohol or drug abuse patient.[facility] HospitalIn the event this information is protected by the Federal Confidentiality of Alcohol and Drug Abuse Patient Records regulations: The Federal rules restrict any use of the information to criminally investigate or prosecute any alcohol or drug abuse patient.[facility] HospitalIn the event this information is protected by the Federal Confidentiality of Alcohol and Drug Abuse Patient Records regulations: The Federal rules restrict any use of the information to criminally investigate or prosecute any alcohol or drug abuse patient.[facility] HospitalIn the event this information is protected by the Federal Confidentiality of Alcohol and Drug Abuse Patient Records regulations: The Federal rules restrict any use of the information to criminally investigate or prosecute any alcohol or drug abuse patient.[facility] HospitalIn the event this information is protected by the Federal Confidentiality of Alcohol and Drug Abuse Patient Records regulations: The Federal rules restrict any use of the information to criminally investigate or prosecute any alcohol or drug abuse patient.[facility] HospitalIn the event this information is protected by the Federal Confidentiality of Alcohol and Drug Abuse Patient Records regulations: The Federal rules restrict any use of the information to criminally investigate or prosecute any alcohol or drug abuse patient.[facility] HospitalIn the event this information is protected by the Federal Confidentiality of Alcohol and Drug Abuse Patient Records regulations: The Federal rules restrict any use of the information to criminally investigate or prosecute any alcohol or drug abuse patient.[facility] HospitalIn the event this information is protected by the Federal Confidentiality of Alcohol and Drug Abuse Patient Records regulations: The Federal rules restrict any use of the information to criminally investigate or prosecute any alcohol or drug abuse patient.[facility] HospitalIn the event this information is protected by the Federal Confidentiality of Alcohol and Drug Abuse Patient Records regulations: The Federal rules restrict any use of the information to criminally investigate or prosecute any alcohol or drug abuse patient.[facility] HospitalIn the event this information is protected by the Federal Confidentiality of Alcohol and Drug Abuse Patient Records regulations: The Federal rules restrict any use of the information to criminally investigate or prosecute any alcohol or drug abuse patient.[facility] HospitalIn the event this information is protected by the Federal Confidentiality of Alcohol and Drug Abuse Patient Records regulations: The Federal rules restrict any use of the information to criminally investigate or prosecute any alcohol or drug abuse patient.[facility] HospitalIn the event this information is protected by the Federal Confidentiality of Alcohol and Drug Abuse Patient Records regulations: The Federal rules restrict any use of the information to criminally investigate or prosecute any alcohol or drug abuse patient.[facility] HospitalIn the event this information is protected by the Federal Confidentiality of Alcohol and Drug Abuse Patient Records regulations: The Federal rules restrict any use of the information to criminally investigate or prosecute any alcohol or drug abuse patient.[facility] HospitalIn the event this information is protected by the Federal Confidentiality of Alcohol and Drug Abuse Patient Records regulations: The Federal rules restrict any use of the information to criminally investigate or prosecute any alcohol or drug abuse patient.[facility] HospitalIn the event this information is protected by the Federal Confidentiality of Alcohol and Drug Abuse Patient Records regulations: The Federal rules restrict any use of the information to criminally investigate or prosecute any alcohol or drug abuse patient.[facility] HospitalIn the event this information is protected by the Federal Confidentiality of Alcohol and Drug Abuse Patient Records regulations: The Federal rules restrict any use of the information to criminally investigate or prosecute any alcohol or drug abuse patient.[facility] HospitalIn the event this information is protected by the Federal Confidentiality of Alcohol and Drug Abuse Patient Records regulations: The Federal rules restrict any use of the information to criminally investigate or prosecute any alcohol or drug abuse patient.[facility] HospitalIn the event this information is protected by the Federal Confidentiality of Alcohol and Drug Abuse Patient Records regulations: The Federal rules restrict any use of the information to criminally investigate or prosecute any alcohol or drug abuse patient.[facility] HospitalIn the event this information is protected by the Federal Confidentiality of Alcohol and Drug Abuse Patient Records regulations: The Federal rules restrict any use of the information to criminally investigate or prosecute any alcohol or drug abuse patient.[facility] HospitalIn the event this information is protected by the Federal Confidentiality of Alcohol and Drug Abuse Patient Records regulations: The Federal rules restrict any use of the information to criminally investigate or prosecute any alcohol or drug abuse patient.[facility] HospitalIn the event this information is protected by the Federal Confidentiality of Alcohol and Drug Abuse Patient Records regulations: The Federal rules restrict any use of the information to criminally investigate or prosecute any alcohol or drug abuse patient.[facility] HospitalIn the event this information is protected by the Federal Confidentiality of Alcohol and Drug Abuse Patient Records regulations: The Federal rules restrict any use of the information to criminally investigate or prosecute any alcohol or drug abuse patient.[facility] HospitalIn the event this information is protected by the Federal Confidentiality of Alcohol and Drug Abuse Patient Records regulations: The Federal rules restrict any use of the information to criminally investigate or prosecute any alcohol or drug abuse patient.[facility] HospitalIn the event this information is protected by the Federal Confidentiality of Alcohol and Drug Abuse Patient Records regulations: The Federal rules restrict any use of the information to criminally investigate or prosecute any alcohol or drug abuse patient.[facility] HospitalIn the event this information is protected by the Federal Confidentiality of Alcohol and Drug Abuse Patient Records regulations: The Federal rules restrict any use of the information to criminally investigate or prosecute any alcohol or drug abuse patient.[facility] HospitalIn the event this information is protected by the Federal Confidentiality of Alcohol and Drug Abuse Patient Records regulations: The Federal rules restrict any use of the information to criminally investigate or prosecute any alcohol or drug abuse patient.[facility] HospitalIn the event this information is protected by the Federal Confidentiality of Alcohol and Drug Abuse Patient Records regulations: The Federal rules restrict any use of the information to criminally investigate or prosecute any alcohol or drug abuse patient.[facility] HospitalIn the event this information is protected by the Federal Confidentiality of Alcohol and Drug Abuse Patient Records regulations: The Federal rules restrict any use of the information to criminally investigate or prosecute any alcohol or drug abuse patient.[facility] HospitalIn the event this information is protected by the Federal Confidentiality of Alcohol and Drug Abuse Patient Records regulations: The Federal rules restrict any use of the information to criminally investigate or prosecute any alcohol or drug abuse patient.[facility] HospitalIn the event this information is protected by the Federal Confidentiality of Alcohol and Drug Abuse Patient Records regulations: The Federal rules restrict any use of the information to criminally investigate or prosecute any alcohol or drug abuse patient.[facility] HospitalIn the event this information is protected by the Federal Confidentiality of Alcohol and Drug Abuse Patient Records regulations: The Federal rules restrict any use of the information to criminally investigate or prosecute any alcohol or drug abuse patient.[facility] HospitalIn the event this information is protected by the Federal Confidentiality of Alcohol and Drug Abuse Patient Records regulations: The Federal rules restrict any use of the information to criminally investigate or prosecute any alcohol or drug abuse patient.[facility] HospitalIn the event this information is protected by the Federal Confidentiality of Alcohol and Drug Abuse Patient Records regulations: The Federal rules restrict any use of the information to criminally investigate or prosecute any alcohol or drug abuse patient.[facility] HospitalIn the event this information is protected by the Federal Confidentiality of Alcohol and Drug Abuse Patient Records regulations: The Federal rules restrict any use of the information to criminally investigate or prosecute any alcohol or drug abuse patient.[facility] HospitalIn the event this information is protected by the Federal Confidentiality of Alcohol and Drug Abuse Patient Records regulations: The Federal rules restrict any use of the information to criminally investigate or prosecute any alcohol or drug abuse patient.[facility] Care Teams (unrecognized sec tion and content) Oracle Adf Consultant Relationship Specialty Start Date End Date Joby Mays, DO [address] [place] [address] PCP - General Internal Medicine 11/07/21 Joon Piper MD [address] [place] [address] Physician Hematology/Oncology 05/25/20 Zeynep Burton APRN.[employer] [address] [place] [address] Nurse Practitioner Hematology/Oncology 05/25/20 Diana Leong, LENNY [address] [place] [address] Specialty Metal Roaster Hematology/Oncology 05/25/20 Oracle Adf Consultant Relationship Specialty Start Date End Date Joby Mays, DO [address] [place] [address] PCP - General Internal Medicine 11/07/21 Joon Piper MD [address] [place] [address] Physician Hematology/Oncology 05/25/20 Zeynep Burton, RECORDS TECHNICIAN.[employer] [address] [place] [address] Nurse Practitioner Hematology/Oncology 05/25/20 Diana Leong, LENNY [address] [place] [address] Specialty Metal Roaster Hematology/Oncology 05/25/20 Oracle Adf Consultant Relationship Specialty Start Date End Date Joby Mays, DO [address] [facility] [place] [id number] PCP - General Internal Medicine 11/07/21 Joon Piper MD [address] [place] [address] Physician Hematology/Oncology 05/25/20 Zeynep Burton, RECORDS TECHNICIAN.[employer] [address] [place] [address] Nurse Practitioner Hematology/Oncology 05/25/20 Diana Leong, LENNY [address] [place] [address] Specialty Metal Roaster Hematology/Oncology 05/25/20 Oracle Adf Consultant Relationship Specialty Start Date End Date Joby Mays, DO [address] [place] [id number] PCP - General Internal Medicine 11/07/21 Joon Piper MD [address] [place] [address] Physician Hematology/Oncology 05/25/20 Zeynep Burton, RECORDS TECHNICIAN.[employer] [address] [place] [address] Nurse Practitioner Hematology/Oncology 05/25/20 Diana Leong, RN [address] [facility] [place] [address] Specialty Metal Roaster Hematology/Oncology 05/25/20 Oracle Adf Consultant Relationship Specialty Start Date End Date Joby Mays, DO [address] [facility] [place] [address] PCP - General Internal Medicine 11/07/21 Joon Piper MD [address] [facility] [place] [address] Physician Hematology/Oncology 05/25/20 Zeynep Burton, RECORDS TECHNICIAN.[employer] [address] [place] [address] Nurse Practitioner Hematology/Oncology 05/25/20 Diana Leong, LENNY [address] [facility] [place] [address] Specialty Metal Roaster Hematology/Oncology 05/25/20 Oracle Adf Consultant Relationship Specialty Start Date End Date Joby Mays, DO [address] [facility] [place] [address] PCP - General Internal Medicine 11/07/21 Joon Piper MD [address] [facility] [place] [address] Physician Hematology/Oncology 05/25/20 Zeynep Burton, RECORDS TECHNICIAN.[employer] [address] [facility] [place] [address] Nurse Practitioner Hematology/Oncology 05/25/20 Diana Leong, RN [address] [facility] [place] [address] Specialty Metal Roaster Hematology/Oncology 05/25/20 Oracle Adf Consultant Relationship Specialty Start Date End Date Joby Mays, DO [address] [facility] [address] [place], [place] [id number] PCP - General Internal Medicine 11/07/21 Joon Piper MD [address] [facility] [place] [address] Physician Hematology/Oncology 05/25/20 Zeynep Burton, RECORDS TECHNICIAN.[employer] [address] [facility] [place] [address] Nurse Practitioner Hematology/Oncology 05/25/20 Diana Leong, LENNY [address] [facility] [place] [address] Specialty Metal Roaster Hematology/Oncology 05/25/20 Saranya Rowell LSW Mail Sorting Supervisor 03/19/23 Oracle Adf Consultant Relationship Specialty Start Date End Date Joby Mays, DO [address] [facility] [place] [address] PCP - General Internal Medicine 11/07/21 Joon Piper MD [address] [facility] [place] [address] Physician Hematology/Oncology 05/25/20 Zeynep Burton, RECORDS TECHNICIAN.[employer] [address] [facility] [place] [address] Nurse Practitioner Hematology/Oncology 05/25/20 Diana Leong, LENNY [address] [facility] [place] [address] Specialty Metal Roaster Hematology/Oncology 05/25/20 Saranya Rowell, SIDNEY Mail Sorting Supervisor 03/19/23 Oracle Adf Consultant Relationship Specialty Start Date End Date Joby Mays, DO [address] [facility] [place] [address] PCP - General Internal Medicine 11/07/21 Joon Piper MD [address] [facility] [place] [address] Physician Hematology/Oncology 05/25/20 Zeynep Burton, RECORDS TECHNICIAN.[employer] [address] [facility] [place] [place] [address] Nurse Practitioner Hematology/Oncology 05/25/20 Diana Leong, LENNY [address] [facility] [place] [address] Specialty Metal Roaster Hematology/Oncology 05/25/20 Saranya Rowell LSW Mail Sorting Supervisor 03/19/23 Oracle Adf Consultant Relationship Specialty Start Date End Date Joby Mays, DO [address] [facility] [place] [place] [address] PCP - General Internal Medicine 11/07/21 Joon Piper MD [address] [facility] [place] [address] Physician Hematology/Oncology 05/25/20 Zeynep Burton, RECORDS TECHNICIAN.[employer] [address] [facility] [place] [address] Nurse Practitioner Hematology/Oncology 05/25/20 Diana Leong, LENNY [address] [facility] [place] [address] Specialty Metal Roaster Hematology/Oncology 05/25/20 Saranya Rowell LSW Mail Sorting Supervisor 03/19/23 Oracle Adf Consultant Relationship Specialty Start Date End Date Joby Mays, [address] [facility] [place] [place] [address] PCP - General Internal Medicine 11/07/21 Joon Piper MD [address] [facility] [place] [address] Physician Hematology/Oncology 05/25/20 Zeynep Burton, RECORDS TECHNICIAN.[employer] [address] [facility] [place] [address] Nurse Practitioner Hematology/Oncology 05/25/20 Diana Leong, LENNY [address] [facility] [place] [address] Specialty Metal Roaster Hematology/Oncology 05/25/20 Saranya Rowell LSW Mail Sorting Supervisor 03/19/23 Oracle Adf Consultant Relationship Specialty Start Date End Date Joby Mays, DO [address] [facility] [place] [address] PCP - General Internal Medicine 11/07/21 Joon Piper MD [address] [facility] [place] [address] Physician Hematology/Oncology 05/25/20 Zeynep Burton, RECORDS TECHNICIAN.[employer] TE[employer]ER [address] [facility] [place] [place] [address] Nurse Practitioner Hematology/Oncology 05/25/20 Diana Leong RN [address] [facility] [place] [address] Specialty Metal Roaster Hematology/Oncology 05/25/20 Saranya Rowell LSW Mail Sorting Supervisor 03/19/23 Oracle Adf Consultant Relationship Specialty Start Date End Date Joby Mays DO [address] [facility] [place] [address] PCP - General Internal Medicine 11/07/21 Joon Piper MD [address] [facility] [place] [address] Physician Hematology/Oncology 05/25/20 Zeynep Burton, RECORDS TECHNICIAN.[employer] [address] [place] [address] Nurse Practitioner Hematology/Oncology 05/25/20 Diana Leong RN [address] [facility] [place] [address] Specialty Metal Roaster Hematology/Oncology 05/25/20 Saranya Rowell LSW Mail Sorting Supervisor 03/19/23 Oracle Adf Consultant Relationship Specialty Start Date End Date Joby Mays DO [address] [facility] [place] [place] [address] PCP - General Internal Medicine 11/07/21 Joon Piper MD [address] [facility] [place] [address] Physician Hematology/Oncology 05/25/20 Zeynep Burton, RECORDS TECHNICIAN.[employer]ER [address] [facility] [facility] [place] [place] [address] Nurse Practitioner Hematology/Oncology 05/25/20 Diana Leong RN [address] [facility] [place] [address] Specialty Metal Roaster Hematology/Oncology 05/25/20 Saranya Rowell LSW Mail Sorting Supervisor 03/19/23 Oracle Adf Consultant Relationship Specialty Start Date End Date Joby Mays DO [address] [facility] [place] [address] PCP - General Internal Medicine 11/07/21 Joon Piper MD [address] [place] [address] Physician Hematology/Oncology 05/25/20 Zeynep Burton, EMERY.[employer] [address] [facility] [place] [address] Nurse Practitioner Hematology/Oncology 05/25/20 Diana Leong RN [address] [facility] [place] [place] [address] Specialty Metal Roaster Hematology/Oncology 05/25/20 Saranya Rowell LSW Mail Sorting Supervisor 03/19/23 Oracle Adf Consultant Relationship Specialty Start Date End Date Joby Mays DO [address] [facility] [place] [place] [address] PCP - General Internal Medicine 11/07/21 Jono Piper MD [address] [facility] [place] [place] [address] Physician Hematology/Oncology 05/25/20 Zeynep Burton, RECORDS TECHNICIAN.[employer]IC TE[employer]ER [address] [place] [address] Nurse Practitioner Hematology/Oncology 05/25/20 Diana Leong RN [address] [facility] [place] [place] [address] Specialty Metal Roaster Hematology/Oncology 05/25/20 Saranya Rowell LSW Mail Sorting Supervisor 03/19/23 Oracle Adf Consultant Relationship Specialty Start Date End Date Joby Mays DO [address] [place] [address] PCP - General Internal Medicine 11/07/21 Joon Piper MD [address] [facility] [place] [place] [address] Physician Hematology/Oncology 05/25/20 Zeynep Burton, EMERY.[employer] TE[employer]ER [address] [facility] [place] [address] Nurse Practitioner Hematology/Oncology 05/25/20 Diana Leong RN [address] [facility] [place] [address] Specialty Metal Roaster Hematology/Oncology 05/25/20 Saranya Rowell LSW Mail Sorting Supervisor 03/19/23 Oracle Adf Consultant Relationship Specialty Start Date End Date Joby Mays DO [address] [facility] [place] [address] PCP - General Internal Medicine 11/07/21 Joon Piper MD [address] [facility] [place] [address] Physician Hematology/Oncology 05/25/20 Zeynep Burton, EMERY.[employer] MUSIC TEACHER [address] [facility] [place] [address] Nurse Practitioner Hematology/Oncology 05/25/20 Diana Leong RN [address] [facility] [place] [address] Specialty Metal Roaster Hematology/Oncology 05/25/20 Saranya Rowell LSW Mail Sorting Supervisor 03/19/23 Oracle Adf Consultant Relationship Specialty Start Date End Date Joby Mays DO [address] [facility] [place] [address] PCP - General Internal Medicine 11/07/21 Joon Piper MD [address] [place] [address] [place] [address] Physician Hematology/Oncology 05/25/20 Zeynep Burton, RECORDS TECHNICIAN.[employer] MUSIC TE[employer]ER [address] [place] [address] Nurse Practitioner Hematology/Oncology 05/25/20 Diana Leong, LENNY [address] [place] [address] Specialty Metal Roaster Hematology/Oncology 05/25/20 Saranya Rowell LSW Mail Sorting Supervisor 03/19/23 Oracle Adf Consultant Relationship Specialty Start Date End Date Evan Eugene PCP - General Neurology 04/08/20 11/06/21 Joon Piper MD [address] [place] [address] [place] [address] Physician Hematology/Oncology 05/25/20 Zeynep Burton, RECORDS TECHNICIAN.[employer]IC TE[employer]ER [address] [place] [address] [place] [address] Nurse Practitioner Hematology/Oncology 05/25/20 Diana Leong RN [address] [place] [address] Specialty Metal Roaster Hematology/Oncology 05/25/20 Oracle Adf Consultant Relationship Specialty Start Date End Date Joby Mays DO [address] [place] [address] PCP - General Internal Medicine 11/07/21 Joon Piper MD [address] [place] [address] Physician Hematology/Oncology 05/25/20 Zeynep Burton, RECORDS TECHNICIAN.[employer] MUSIC TEACHER [address] [place] [address] Nurse Practitioner Hematology/Oncology 05/25/20 Diana Leong, LENNY [address] [place] [address] Specialty Metal Roaster Hematology/Oncology 05/25/20 Saranya Rowell LSW Mail Sorting Supervisor 03/19/23 Oracle Adf Consultant Relationship Specialty Start Date End Date Joby Mays DO [address] [place] [address] PCP - General Internal Medicine 11/07/21 Joon Piper MD [address] [place] [address] Physician Hematology/Oncology 05/25/20 Zeynep Burton, RECORDS TECHNICIAN.[employer] MUSIC TEACHER [address] [place] [address] Nurse Practitioner Hematology/Oncology 05/25/20 Diana Leong, LENNY [address] [place] [address] Specialty Metal Roaster Hematology/Oncology 05/25/20 Saranya Rowell LSW Mail Sorting Supervisor 03/19/23 Oracle Adf Consultant Relationship Specialty Start Date End Date Joby Mays DO [address] [place] [address] PCP - General Internal Medicine 11/07/21 Joon Piper MD [address] [place] [address] Physician Hematology/Oncology 05/25/20 Zeynep Burton, RECORDS TECHNICIAN.[employer] MUSIC TEACHER [address] [place] [address] Nurse Practitioner Hematology/Oncology 05/25/20 Diana Leong, LENNY [address] [facility] [place] [address] Specialty Metal Roaster Hematology/Oncology 05/25/20 Saranya Rowell LSW Mail Sorting Supervisor 03/19/23 Team Status: Active Member Role Status Dates Joby Mays DO Primary Care Provider Active Team Status: Active Member Role Status Dates Joby Mays DO Primary Care Provider Active Start: April 17, 2024 Joon Piper MD Attending Provider Active Start: April 17, 2024 Team Status: Inactive Member Role Status Dates Joby Mays DO Primary Care Provide r, Attending Provider Active Start: May 21, 2024 End: May 21, 2024 Oracle Adf Consultant Relationship Specialty Start Date End Date Joby Mays DO [address] [place] [address] PCP - General Internal Medicine 11/07/21 Joon Piper MD [address] [place] [address] Physician Hematology/Oncology 05/25/20 Zeynep Burton, RECORDS TECHNICIAN.[employer]IC TEACHER [address] [place] [address] Nurse Practitioner Hematology/Oncology 05/25/20 Diana Leong, LENNY [address] [facility] [place] [address] Specialty Metal Roaster Hematology/Oncology 05/25/20 Saranya Rowell LSW Mail Sorting Supervisor 03/19/23 Team Status: Active Member Role Status Dates Joby Mays DO Primary Care Provide r, Attending Provider Active Start: June 20, 2024 Team Status: Inactive Member Role Status Dates Joby Mays DO Primary Care Provider Active Start: June 23, 2024 End: June 23, 2024 Ekaterina Castañeda APRN Attending Provider Active Start: June 23, 2024 End: June 23, 2024 Oracle Adf Consultant Relationship Specialty Start Date End Date Joby Mays MD [address] [place] [phone] PCP - General Internal Medicine 12/22/23 Oracle Adf Consultant Relationship Specialty Start Date End Date Joby Mays MD [address] [place] [phone] PCP - General Internal Medicine 12/22/23 Oracle Adf Consultant Relationship Specialty Start Date End Date Joby Mays DO [address] [facility] [place] [address] PCP - General Internal Medicine 11/07/21 Joon Piper MD [address] [facility] [address] [place] [id number] Physician Hematology/Oncology 05/25/20 Zeynep Burton APRN.[facility] [address] [facility] [place] [address] Nurse Practitioner Hematology/Oncology 05/25/20 Diana Leong, LENNY [address] [facility] [place] [address] Specialty Metal Roaster Hematology/Oncology 05/25/20 Saranya Rowell LSW Mail Sorting Supervisor 03/19/23 Oracle Adf Consultant Relationship Specialty Start Date End Date Joby Mays DO [address] [place] [address] PCP - General Internal Medicine 11/07/21 Joon Piper MD [address] [facility] [place] [address] Physician Hematology/Oncology 05/25/20 Zeynep Burton, RECORDS TECHNICIAN.[employer] MUSIC TEACHER [address] [facility] [place] [place] [address] Nurse Practitioner Hematology/Oncology 05/25/20 Diana Leong, LENNY [address] [facility] [place] [address] Specialty Metal Roaster Hematology/Oncology 05/25/20 Saranya Rowell LSW Mail Sorting Supervisor 03/19/23 Oracle Adf Consultant Relationship Specialty Start Date End Date Joby Mays, DO [address] [place] [address] PCP - General Internal Medicine 11/07/21 Joon Piper MD [address] [facility] [place] [address] Physician Hematology/Oncology 05/25/20 Zeynep Burton, RECORDS TECHNICIAN.[employer] MUSIC TEACHER [address] [facility] [place] [address] Nurse Practitioner Hematology/Oncology 05/25/20 Diana Leong, LENNY [address] [facility] [place] [address] Specialty Metal Roaster Hematology/Oncology 05/25/20 Saranya Rowell, SIDNEY Mail Sorting Supervisor 03/19/23 Oracle Adf Consultant Relationship Specialty Start Date End Date Joby Mays DO [address] [facility] [place] [address] PCP - General Internal Medicine 11/07/21 Joon Piper MD [address] [facility] [place] [address] Physician Hematology/Oncology 05/25/20 Zeynep Burton, RECORDS TECHNICIAN.[employer] MUSIC TEACHER [address] [place] [address] Nurse Practitioner Hematology/Oncology 05/25/20 Diana Leong, LENNY [address] [facility] [place] [address] Specialty Metal Roaster Hematology/Oncology 05/25/20 Saranya Rowell LSW Mail Sorting Supervisor 03/19/23 Oracle Adf Consultant Relationship Specialty Start Date End Date Joby Mays, [address] [facility] [place] [address] PCP - General Internal Medicine 11/07/21 Joon Piper MD [address] [facility] [place] [place] [address] Physician Hematology/Oncology 05/25/20 Zeynep Burton, RECORDS TECHNICIAN.[employer] MUSIC TEACHER [address] [facility] [place] [address] Nurse Practitioner Hematology/Oncology 05/25/20 Diana Leong, LENNY [address] [facility] [place] [address] Specialty Metal Roaster Hematology/Oncology 05/25/20 Saranya Rowell LSW Mail Sorting Supervisor 03/19/23 Oracle Adf Consultant Relationship Specialty Start Date End Date Joby Mays DO [address] [facility] [address] [place], [place] [address] PCP - General Internal Medicine 11/07/21 Joon Piper MD [address] [place] [address] Physician Hematology/Oncology 05/25/20 Zeynep Burton, RECORDS TECHNICIAN.[employer] MUSIC TEACHER [address] [place] [address] Nurse Practitioner Hematology/Oncology 05/25/20 Diana Leong, LENNY [address] [place] [address] Specialty Metal Roaster Hematology/Oncology 05/25/20 Saranya Rowell LSW Mail Sorting Supervisor 03/19/23 Oracle Adf Consultant Relationship Specialty Start Date End Date Joby Mays, DO [address] [facility] [place] [address] PCP - General Internal Medicine 11/07/21 Joon Piper MD [address] [facility] [place] [place] [address] Physician Hematology/Oncology 05/25/20 Zeynep Burton, RECORDS TECHNICIAN.[employer] MUSIC TEACHER [address] [facility] [place] [place] [address] Nurse Practitioner Hematology/Oncology 05/25/20 Diana Leong, LENNY [address] [place] [address] Specialty Metal Roaster Hematology/Oncology 05/25/20 Saranya Rowell LSW Mail Sorting Supervisor 03/19/23 Oracle Adf Consultant Relationship Specialty Start Date End Date Joby Mays, [address] [facility] [place] [address] PCP - General Internal Medicine 11/07/21 Joon Piper MD [address] [place] [address] Physician Hematology/Oncology 05/25/20 Zeynep Burton APRN.[employer] MUSIC TEACHER [address] [place] [address] Nurse Practitioner Hematology/Oncology 05/25/20 Diana Leong, LENNY [address] [place] [address] Specialty Metal Roaster Hematology/Oncology 05/25/20 Saranya Rowell LSW Mail Sorting Supervisor 03/19/23 Oracle Adf Consultant Relationship Specialty Start Date End Date Joby Mays MD [address] [place] [address] PCP - General Internal Medicine 12/22/23 Oracle Adf Consultant Relationship Specialty Start Date End Date Joby Mays MD [address] [place] [address] PCP - General Internal Medicine 12/22/23 Oracle Adf Consultant Relationship Specialty Start Date End Date Joby Mays MD [address] [place] [address] PCP - General Internal Medicine 12/22/23 Oracle Adf Consultant Relationship Specialty Start Date End Date Joby Mays DO [address] [place] [address] PCP - General Internal Medicine 11/07/21 Joon Piper MD [address] [place] [address] Physician Hematology/Oncology 05/25/20 Zeynep Burton APRN.[employer] MUSIC TEACHER [address] [place] [address] Nurse Practitioner Hematology/Oncology 05/25/20 Diana Leong, LENNY [address] [facility] [place] [address] Specialty Metal Roaster Hematology/Oncology 05/25/20 Saranya Rowell LSW Mail Sorting Supervisor 03/19/23 Team Status: Active Member Role Status Dates Joby Mays DO Primary Care Provider Active Start: August 13, 2024 Joon Ppier MD Attending Provider Active Start: August 13, 2024 Team Status: Active Member Role Status Dates Joby Mays DO Primary Care Provider Active Start: August 20, 2024 Joon Piper MD Attending Provider Active Start: August 20, 2024 Team Status: Inactive Member Role Status Dates Joby Mays DO Primary Care Provider Active Start: August 29, 2024 End: August 29, 2024 Joby Sol DO Attending Provider Active S tart: August 29, 2024 End: August 29, 2024 Team Status: Active Member Role Status Dates Joby Mays DO Primary Care Provider Active Start: September 10, 2024 Trinh Ramirez APRN [employer]-C Attending Provider Active Start: September 10, 2024 Team Status: Inactive Member Role Status Dates Joby Mays DO Primary Care Provider Active Start: September 12, 2024 End: September 12, 2024 Joby Sol DO Attending Provider Active S tart: September 12, 2024 End: September 12, 2024 Team Status: Active Member Role Status Dates Joby Mays DO Primary Care Provider Active Start: September 17, 2024 Trinh Ramirez APRN [employer] Attending Provider Active Start: September 17, 2024 Team Status: Inactive Member Role Status Dates Joby Mays DO Primary Care Provide r, Attending Provider Active Start: November 11, 2024 End: November 11, 2024 Oracle Adf Consultant Relationship Specialty Start Date End Date Joby Mays MD [facility] [place] [address] PCP - General Internal Medicine 12/22/23 Oracle Adf Consultant Relationship Specialty Start Date End Date Joby Mays MD [address] [facility] [place] [phone] PCP - General Internal Medicine 12/22/23 Oracle Adf Consultant Relationship Specialty Start Date End Date Joby Mays DO [address] [place] [address] PCP - General Internal Medicine 01/26/22 Oracle Adf Consultant Relationship Specialty Start Date End Date Joby Mays DO [address] [address] PCP - General Internal Medicine 01/26/22 Oracle Adf Consultant Relationship Specialty Start Date End Date Joby Mays DO [address] [place] [address] PCP - General Internal Medicine 01/26/22 Oracle Adf Consultant Relationship Specialty Start Date End Date Joby Mays DO [address] [place] [address] PCP - General Internal Medicine 11/07/21 Joon Piper MD [address] [place] [address] Physician Hematology/Oncology 05/25/20 Zeynep Burton APRN.[employer] MUSIC TEACHER [address] [place] [address] Nurse Practitioner Hematology/Oncology 05/25/20 Diana Leong, LENNY [address] [place] [address] Specialty Metal Roaster Hematology/Oncology 05/25/20 Saranya Rowell LSW Mail Sorting Supervisor 03/19/23 Oracle Adf Consultant Relationship Specialty Start Date End Date Joby Mays DO [address] [place] [address] PCP - General Internal Medicine 01/26/22 Oracle Adf Consultant Relationship Specialty Start Date End Date Joby Mays DO [address] [place] [address] PCP - General Internal Medicine 01/26/22 Oracle Adf Consultant Relationship Specialty Start Date End Date Joby Mays DO [address] [place] [address] PCP - General Internal Medicine 01/26/22 Oracle Adf Consultant Relationship Specialty Start Date End Date Joby Mays DO PCP - General Internal Medicine 01/26/22 Oracle Adf Consultant Relationship Specialty Start Date End Date Joby Mays DO PCP - General Internal Medicine 01/26/22 Oracle Adf Consultant Relationship Specialty Start Date End Date Joby Mays DO PCP - General Internal Medicine 01/26/22 Oracle Adf Consultant Relationship Specialty Start Date End Date Joby Mays MD [address] [facility] [place] [address] PCP - General Internal Medicine 12/22/23 Evan Eugene DO [address] [place] [address] Referring Physician Neurology 12/11/24 Reason for Visit (unrecogniz ed section and content) Reason Comments Fatigue Appointment Reason Comments Waldenstrom macroglobulinemia Reason Comments Waldenstrom macroglobulinemia Reason Comments Waldenstrom macroglobulinemia 3 month fo llow up Reason Comments Appointment Reason Comments Non-Chemotherapy Treatment Rituximab Reason Comments Disability Scott Reason Comments Waldenstrom macroglobulinemia 1 month fo llow up Specialty Diagnoses / Procedures Referred By Contac t Referred To Contact Diagnoses Waldenstrom macroglobulinemia (HCC) Procedures INJ RUXIENCE, 10 MG Joon Piper MD [address] [place] [address] [place] [address] [address] [place] [address] Referral ID Status Reason Start Date Expiration Date V isits Requested Visits Authorized [id number] Authorized 03/17/2023 10/07/2023 4 4 Reason Comments Benefits Investigation Reason Comments Care Coordination C1D1 Post Treatment Call Reason Comments Waldenstrom macroglobulinemia 1 week fol low up Referral ID Status Reason Start Date Expiration Date V isits Requested Visits Authorized [id number] Authorized 03/17/2023 10/07/2023 4 99 Reason Comments AFLAC paperwork Reason Onset Date Comments Refill Request 05/29/2023 Reason Comments Waldenstrom macroglobulinemia (HCC) Reason Comments Radiology MRI Specialty Diagnoses / Procedures Referred By Contac t Referred To Contact MR IMAGING Diagnoses Neoplasm of uncertain behavior of liver, gallbladder, and bile ducts Abnormal CT of the abdomen Procedures MRI LIVER WO/W IVCON MRI,ABDOMEN,W&WO CONTRS Joon Piper MD [address] [place] [address] [place] [address] [place] [address] Referral ID Status Reason Start Date Expiration Date V isits Requested Visits Authorized [id number] Closed Auto-Generate d Referral 07/22/2021 09/05/2021 1 1 Reason Comments Treatment Planning Reason Comments [address] [facility] Initial Consult Reason Comments waldenstrom macroglobulinemia Follow up Reason Comments Future Appointment Reason Comments Sleep Apnea S/P DISE Specialty Diagnoses / Procedures Referred By Contac t Referred To Contact Diagnoses Waldenstrom macroglobulinemia Procedures INJ RUXIENCE, 10 MG Joon Piper MD [address] [place] [address] [place] [address] Brandon Treat Laron [address] [facility] [place] [address] Referral ID Status Reason Start Date Expiration Date V isits Requested Visits Authorized [id number] Authorized 07/31/2024 10/07/2024 99 99 Reason Comments Waldenstrom macroglobulinemia Treatment visit Reason Comments Appointment Cancelled Referral ID Status Reason Start Date Expiration Date V isits Requested Visits Authorized [id number] Authorized 07/31/2024 10/07/2025 99 99 Reason Comments Post-op Reason Comments Sleep Apnea Reason Comments Lab Orders Referral ID Status Reason Start Date Expiration Date Visits Re quested Visits Authorized [id number] Closed 07/31/2024 10/07/2025 99 99 Reason Comments Sleep Apnea Specialty Diagnoses / Procedures Referred By Contac t Referred To Contact Neurology Diagnoses TIANNA (obstructive sleep apnea) Procedures VNS Device Interrogation w/simple programming 3 or fewer parameters Evan Eugene DO [address] [place] [address] Phone: tel: fax: Evan Eugene DO [address] [place] [address] Phone: tel: fax: Referral ID Status Reason Start Date Expiration Date Visits Re quested Visits Authorized [id number] Closed 11/12/2024 05/11/2025 1 1 Reason Onset Date Comments Results 11/17/2024 Reason Comments Breast Mass Boil above right nip ple, referred by DESTINY Cunha Reason Comments Colon Cancer Screening 5 YEAR RECALL, [facility] EGD & COLONOSCOPY WAS 05/23/2018. REFERRED BY DR MAYS. Reason Comments Cyst In office excision o f infected epidermoid cyst on right chest Goals (unrecognized section and content) Goals may be documented in a n alternate section FOR RECORDS PERTAINING TO PATIENTS WHO ARE OR HAVE BEEN ENROLLED IN A CHEMICAL DEPENDENCY/SUBSTANCEABUSE PROGRAM, SOME INFORMATION MAY BE OMITTED. This clinical summary was aggregated from multiple sources. Caution should be exercised in using it in the provision of clinical care. This summary normalizes information from multiple sources, and as a consequence, information in this document may materially change the coding, format and clinical context of patient data. In addition, data may be omitted in some cases. CLINICAL DECISIONS SHOULD BE BASED ON THE PRIMARY CLINICAL RECORDS. [facility]. provides no warranty or guarantee of the accuracy or completeness of information in this document.
== END 2024-12-12 11:32 | disposition home or self-care (01) ==
LOC: RAD 11:36
PROVIDERS: PCP Internal Medicine; Visit Provider Psychiatry & Neurology Neurology
DX: G47.33 Obstructive sleep apnea (adult) (pediatric) (principal)
CPT/HCPCS: 71046; 72040

== ENCOUNTER 2025-09-23 09:12 | Outpatient (OUT) | payer MEDICARE, SELFPAY ==
--- OUTSIDE RECORDS SUMMARY | 2025-09-14 13:40 | XMS_ITS | Encounter Summary ---
Author Organization [facility] Address [address] [place] [id number] Care Team Providers Care Professor Of Business Name Role Phone Joon Piper MD Unavailable [phone] Zeynep Burton APRN.CLOTHES SHAKER Unavailable [phone] Diana Leong RN Unavailable [phone] Joby Bose DO Primary Care Provider [phone] Saranya Rowell FLIGHT OPERATIONS SPECIALIST Unavailable Unavailable Source Comments In the event this information is protected by the Federal Confidentiality of Alcohol and Drug AbusePatient Records regulations: The Federal rules restrict any use of the information to criminally investigate or prosecute any alcohol or drug abuse patient.[facility] Reason for Visit * ReasonCommentsWaldenstrom macroglobulinemiaFollow up Encounter Details DateTypeDepartmentCare Team (Latest Contact Info)Umrusmqrfph40/08/2025 1:40 PM ESTVisit (SP) Office Hematology/Oncology [address] [place] [address] [place] [address] Joon Piper MD [address] [place] [address] [place] [address] Waldenstrom macroglobulinemia (HCC) (Primary Dx); Paraneoplastic neuropathy (HCC); Malaise and fatigue; Malignant lymphoma, lymphoplasmacytic (HCC); Type 2 diabetes mellitus with diabetic polyneuropathy, without long-term current use of insulin (HCC); Type 2 diabetes mellitus without complication, without long-term current use of insulin (HCC); Encounter for other specified aftercare Social History Tobacco UseTypesPacks/DayYears UsedDateSmoking Tobacco: Every WygWiareuohjm799 Started: 03/08/1993; Last attempted to quit: 03/08/2018Passive Smoke Exposure: CurrentSmokeless Tobacco: Never Comments:quit 2017 Alcohol UseStandard Drinks/WeekCommentsNot Currently0 (1 standard drink = 0.6 oz pure alcohol)PHQ-2AnswerDate RecordedPHQ-2 xlwak710/08/2025Area Deprivation IndexAnswerDate RecordedNational Score (1-100), lower number is lower risk74 02/09/2023State Score (1-10), lower number is lower jxet2413Data from: https://www.neighborhoodatlas.[facility].edu/. Last address used [facility]02/09/2023Sex and Gender InformationValueDate Recorded Sex Assigned at BirthNot on fileLegal LtpQrmh4006/25/2013 1:40 PM EDTGender IdentityNot on fileSexual OrientationNot on filedocumented as of this encounter Last Filed Vital Signs Vital SignReadingTime TakenCommentsBlood Zqiatnfg328/7609/14/2025 1:30 PM EST Tvsrb591209/14/2025 1:30 PM HMCJuoswkcjmvv86.1 ??C (96.9 ??F)09/14/2025 1:30 PM ESTRespiratory Nwpb017811/15/2024 1:30 PM ESTOxygen Xsytezhsfq48%09/14/2025 1:30 PM ESTInhaled Oxygen Concentration--Qxcmld83.1 kg (176 lb 9.4 oz)09/14/2025 1:30 PM NJCFhkuga358.6 cm (5' 9.53 )09/14/2025 1:30 PM ESTBody Mass Index25.68 09/14/2025 1:30 PM ESTdocumented in this encounter Functional Status * Are you deaf or do you have serious difficulty hearing?AnswerDate of BeiryqjcweMmzhrrMa44/24/2016 12:24 PM Arden Travis * Are you blind or do you have serious difficulty seeing, even when wearing glasses?AnswerDate of SapdffmtrgSuklytYd64/24/2016 12:24 PM Arden Travis * Do you have serious difficulty walking or climbing stairs?AnswerDate of TjwqcrjgrmXecjiqAv24/24/2016 12:24 PM Arden Travis * Do you have difficulty dressing or bathing?AnswerDate of AssessmentAuthorNo 09/30/2016 12:24 PM Arden Travis * Because of a physical, mental, or emotional condition, do you have difficulty doing errands alone such as visiting a doctor's office or shopping?AnswerDate of HhhgpzarvnLwejruKb25/24/2016 12:24 PM Arden Travis documented as of this encounter Mental Status * Because of a physical, mental, or emotional condition, do you have serious difficulty concentrating, remembering, or making decisions?AnswerEntry Date PmzjcaZm24/24/2016 12:24 PM Arden Travis documented in this encounter Patient Instructions * Patient Instructions* Joon Piper MD - 09/14/2025 2:13 PM EST Labs in 3 months RTC 1 week after to review - reconsider Rituxan based on symptoms documented in this encounter Progress Notes * Joon Piper MD - 09/14/2025 1:40 PM EST Images from the original note were not included. NAME: Kodi Rivas CLINIC NO.: [id number] DATE OF SERVICE: September 14, 2025 (Veronique) Some elements in this clinic note that are critical to medical decision making have been carefully reviewed and included from a prior clinic note dated: November 12, 2024 (Ashley). Referring Provider: Dr. Harrison Bose DIAGNOSIS: Waldenstrom macroglobulinemia CASE SUMMARY / ASSESSMENT: 1. Waldenstrom macroglobulinemia 60 year old gentleman with IgM kappa monoclonal [...] again July 2024 His neuropathy is improving. SUMMARIZED PLAN: Labs in 3 months RTC 1 week after to review - reconsider Rituxan based on symptoms AI ASSISTED A/P: 1. Waldenstrom macroglobulinemia (HCC) (C88.00) 2. 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 Malaise and fatigue (R53.81) 60 year old gentleman with IgM kappa monoclonal gammopathy and anemia, dx'd with Waldenstrom Macroglobulinemia. Symptoms of fatigue and neuropathy improved with Rituxan, last dose January 2025. Currently feeling well, no significant symptoms except chronic foot numbness and joint pain attributed to age/arthritis. M spike undetectable, disease appears well controlled off therapy. - Hold further Rituxan for now. - Monitor symptoms. - Recheck labs in 3 months. - Resume Rituxan if symptoms or labs worsen. 5. Type 2 diabetes mellitus with diabetic polyneuropathy, without long-term current use of insulin (HCC) (E11.42) 6. Type 2 diabetes mellitus without complication, without long-term current use of insulin (HCC) (E11.9) Diabetes well controlled on metformin, most recent glucose 91 mg/dL, no insulin required. - Continue metformin 500 mg daily. - Monitor glucose as needed. 7. Encounter for other specified aftercare (Z51.89) CASE HISTORY: Reverse Chronological Order 08/20/2024 - 01/07/2025 - Rituxan weeky x4 - delayed 3rd dose due to COVID (09/2024) - then paused due to lack of insurance. 04/18/2023-05/09/2023 - Rituxan re-challenge weekly x4 08/05/2021 [...] hypervascular neoplasm. Consider further evaluation via PET scanor MRI. No evidence of splenomegaly or intra-abdominal/pelvic lymphadenopathy. 09/23/2020-10/21/2020 - Rituxan weekly X 4 rechallenge 05/27/2020-06/24/2020 - Rituxan x 4 weekly HPI: Updated Visit, September 14, 2025: Anisha not here but the have a doberman puppy. The patient is a 60-year-old male with a history of Rituxan maintenance therapy, presenting for follow-up. The patient was receiving Rituxan maintenance therapy, with the last dose administered on 01/07. He was unable to continue treatment due to loss of insurance coverage after custodial and transition to disability. Today, he reports feeling well overall. He notes persistent numbness in his feet and joint discomfort, which he attributes to age and arthritis. He also reports ongoing fatigue. He has T2D managed with metformin 500 mg daily, and does not use insulin. - M-spike: 0. Updated Visit, November 12, 2024 (Ashley): Kodi returns today with Anisha. He is [...] implant placed. He is still fatigued although continuesimproving. He is not anemic, ALC is low due to treatment. Will proceed with 4th dose of Rituxan today and continue maintenance regimen q 8 weeks for 2 years. Updated Visit, September 10, 2024: Kodi returns for Rituxan #3. He missed his treatment last week due to having Covid. Still with somecongestion but feeling better. After 2 rituxans his [...] have a somewhat increased A1C at last check- neuropathy may be an AE of insulin [...] a few weeks - sailing out of [place]. They are driving the whole way. Updated [...] diagnosed with colitis. He was seen at [facility]. He developed blood in his stools. He [...] of Rituxan completed in October 2020 for [place] Laura's macroglobulinemia that presents with fatigue as [...] which was done on 09/15/[address] Villagomez at [facility]. He states this procedure went well and [...] levels. 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 Neurological: (+) foot numbness ECOG PERFORMANCE STATUS: 0 PHYSICAL EXAMINATION: Vitals: BP 146/76 Pulse 74 Temp (Src) 96.9 (Temporal) Resp 16 Ht 5' 9.528 (1.77m) Wt 176lb 9.4 oz (80.1kg) SpO2 99% BMI 25.68 kg/(m^2). Body surface area is 1.98 meters [...] Nonfocal to gross visualization. Alert and oriented ??3. Psychiatric: No evidence of inappropriate anxiety or depression. Skin: Visible areas of skin without rash, lesions, wounds or petechiae. ALLERGIES: Allergies Allergen Reactions Allopurinol Unknown Doxycycline GI Upset Other Reaction(s): Gastrointestinal Upset Tetanus And Diphtheria Toxoids Anaphylaxis Atorvastatin Other: See Comments Hydrocodone Other: See Comments Other Reaction(s): Unknown Reaction Metoclopramide Other: See Comments and Unknown Other Reaction(s): Mental Status Change, panic attack, Unknown Other reaction(s): Mental Status Change Other Reaction(s): Mental Status Change Other Reaction(s): Hallucinating Reglan [Metoclopramide Hcl] Mental Status Change Tetnus [Tetanus Vaccines And Toxoid] Anaphylaxis MEDICATIONS: gabapentin (NEURONTIN) 100 mg capsule [...] needed. LABORATORY VALUES: WBC (k/uL) Date Value 09/07/2025 7.78 RBC (m/uL) Date Value 09/07/2025 4.78 Hemoglobin (g/dL) Date Value 09/07/2025 14.5 Hematocrit (%) Date Value 09/07/2025 41.8 MCV (fL) Date Value 09/07/2025 87.4 MCH (pg) Date Value 09/07/2025 30.3 MCHC (g/dL) Date Value 09/07/2025 34.7 RDW-CV (%) Date Value 09/07/2025 12.9 Platelet Count (k/uL) Date Value 09/07/2025 274 MPV (fL) Date Value 09/07/2025 9.9 Glucose (mg/dL) Date Value 09/07/2025 91 BUN (mg/dL) Date Value 09/07/2025 30 (H) Creatinine (mg/dL) Date Value 09/07/2025 0.78 Sodium (mmol/L) Date Value 09/07/2025 145 (H) Potassium (mmol/L) Date Value 09/07/2025 3.9 Chloride (mmol/L) Date Value 09/07/2025 106 CO2 (mmol/L) Date Value 09/07/2025 28 Protein, Total (g/dL) Date Value 09/07/2025 6.8 09/07/2025 6.6 Albumin (g/dL) Date Value 09/07/2025 4.7 Calcium, Total (mg/dL) Date Value 09/07/2025 9.7 Alkaline Phosphatase (U/L) Date Value 09/07/2025 90 Bilirubin, Total (mg/dL) Date Value 09/07/2025 0.2 AST (U/L) Date Value 09/07/2025 14 ALT (U/L) Date Value 09/07/2025 14 M-Protein Concentration Date Value 09/07/2025 0.00 g/dL 01/07/2025 0.00 g/dL 11/12/2024 0.00 g/dL 08/13/2024 0.00 g/dL 07/24/2024 0.00 g/dL 11/04/2021 0.21 gm/dL 07/19/2021 0.19 gm/dL 06/24/2021 0.17 gm/dL 03/18/2021 0.19 gm/dL 12/16/2020 0.24 gm/dL DIAGNOSIS: (C88.00) Waldenstrom macroglobulinemia (HCC) (primary encounter diagnosis) (D49.9, 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) (R53.81, R53.83) Malaise and fatigue (C83.00) Malignant lymphoma, lymphoplasmacytic (HCC) (E11.42) Type 2 diabetes mellitus with diabetic polyneuropathy, without long- term current use of insulin (HCC) (E11.9) Type 2 diabetes mellitus without complication, without long-term current use of insulin (HCC) (Z51.89) Encounter for other specified aftercare PAST MEDICAL HISTORY Diagnosis Date Acid reflux [...] which included preparing to see the patient, vdgh-bv-umsr patient care, completing clinical documentation, obtaining and/or reviewing separately obtained history, performing a medically appropriate examination, counseling and educating the patient/family/caregiver, ordering medications, tests, or procedures, independently interpreting results (not separately reported), communicating results to the patient/family/caregiver, and care coordination (not separately reported). Joon Piper MD, CPE Hematology and Oncology Services Provided at: [place], [place] CC: Dr. Sharona Eugene [address] [facility] [address] [facility] [address] [address] Joby Bose documented in this encounter Plan of Treatment DateTypeDepartmentCare Team (Latest Contact Info)Ylafzhupnwn45/02/2026 11:00 AM ESTOffice Visit [facility] [address] [place] [address] [place] [id number] lab12/14/2025 10:40 AM EDTVisit (SP) Office Hematology/Oncology [address] [place] [address] Joon Piper MD [address] [place] [address] [place] [id number] RV 3 months consider Rituxandocumented as of this encounter Visit Diagnoses Diagnosis Waldenstrom macroglobulinemia (HCC)- Primary Macroglobulinemia 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 Malaise and fatigue Other malaise and fatigue Malignant lymphoma, 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CLOTHES SHAKER [address] [place] [address] Nurse PractitionerHematology/Oncology05/25/20 Diana Leong, LENNY [address] [place] [address] Specialty Care CoordinatorHematology/Oncology05/25/20 Saranya Rowell LSW Social Worker03/19/23documented as of this encounter
--- OUTSIDE RECORDS SUMMARY | 2025-09-16 07:54 | XMS_ITS | Continuity of Care Document ---
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 Name Role Phone Joby Bose DO Primary Care Provider Joon Piper MD Attending Provider Joby Bose DO Attending Provider [phone] Care Teams Patient Care Team Team Status: Active Member Role/Relationship Status Dates Joby Bose DO Primary Care Provider Active Visit Care Team Team Status: Active Member Role/Relationship Status Dates Joby Bose DO Primary Care Provider Active Start: September 07, 2025 Jackie Ramírez ProviderActiveStart: September 07, 2025 Patient Care Team Team Status: Inactive Member Role/Relationship Status Dates Joby Bose DO Primary Care Provider Active Start: September 16, 2025 End: September 16brooke Bose DOAttrobbie ProviderActiveStart: September 16, 2025 End: September 16, 2025 Chief Complaint and Reason for Visit Chief Complaint Admit Date Wellness September 16, 2025 11:48am Reason for Visit Admit Date Asthma September 16, 2025 11:48am Benign prostatic hyperplasia with lower urinary tract symptoms September 16, 2025 11:48am GERD (gastroesophageal reflux disease) D ec2024 11:48am HTN (hypertension) September 16, 2025 11:48am Hypercholesterolemia September 16, 2025 11:48am Major depression September 16, 2025 11:48am Nicotine dependence September 16, 2025 11:48am TIANNA (obstructive sleep apnea) September 072024 11:48am Type 2 diabetes mellitus with hyperglyce nikita September 16, 2025 11:48am Screening PSA (prostate specific antigen ) September 16, 2025 11:48am Welcome to Medicare preventive visit Dec emb2024 11:48am Allergies, Adverse Reactions, Alerts Allergen Type Severity Reaction Last Updated Verified Status doxycycline Allergy Moderate Gastrointestina l Upset September 16, 2025 12:18pm Yes Active metoclopramide Allergy Unknown Hallucinating Decembe r 2024 12:18pm Yes Active Hxypkva-HAM-PvN Reductase Inhibitor Allergy Unknown Muscle Pain September 16, 2025 12:18pm Yes Active tetanus and diphtheria toxoids Allergy Unknown Anaphylaxis September 16, 2025 12:18pm Yes Active Social History Smoking Status Status Start Date End Date Date of Observa tion Smokes tobacco daily (finding) September 08, 2025 7:49am Observation Status Observation Response Date of Response Legal Sex Male (finding) Sex Assigned At [facility] 1964 Family History Relationship Condition Age at Onset Recorded Date/T linus father Unknown HypertensionUnknownCoronary artery diseaseUnknownmotherDiabetes mellitusUnknown Cerebrovascular accident (CVA)UnknownCoronary artery diseaseUnknownsister Multiple sclerosisUnknown Problems Active Problems Problem Diagnosis/Recorded Date Onset Date Status C omments Nicotine dependence December 09, 2023 4:08pm Unknown Acti ve Major depressionAugust 2023 10:31amUnknownActiveOSA (obstructive sleep apnea)December 21, 2023 8:00amUnknownActiveType 2 diabetes mellitus with hyperglycemiaMarch 2023 4:09pmUnknownActiveWaldenstrom macroglobulinemia December 09, 2023 4:08pmUnknownActiveAnxietyMarch 2023 11:12amUnknownActive Laceration of left hand without complication, including fingersSeptember 2023 5:09pmUnknownActiveHypercholesterolemiaAugust 2023 10:31amUnknown ActiveBenign prostatic hyperplasia with lower urinary tract symptomsMarch 2023 11:12amUnknownActiveNeck painAugust 2023 9:08amUnknownActiveStrain of cervical portion of left trapezius muscleFebruary 2024 9:50amUnknownActive GERD (gastroesophageal reflux disease)May 11, 2024 10:30amUnknownActiveHTN (hypertension)June 27, 2017 9:02pmUnknownActiveAsthmaAugust 2023 10:32amUnknownActiveInactive/Resolved Problems Problem Diagnosis/Recorded Date Onset Date Status C omments UTI (urinary tract infection) June 27, 2017 10:26pm Unknown Resolved Pro blem List clean-up per request of Phys. EHR Cmte Suicide attempt by substance overdose June 27, 2017 9:02pm Unknown Resolved P roblem List clean-up per request of Phys. EHR Cmte Medications Medication Status Dose Units Route Directions Qty Days Refills S tart Date Stop Date End Date Reason(s) Instructions Adherence Sildenafil 100 mg tablet Discontinued 0 .ROUTE.YSOVDOU643Lyfof 2023 9:55pmFebruary 2024 9:39amTAKE ONE-HALF (1/2) TO ONE TABLET NEEDED FOR ERECTILE DYSFUNCTIONTizanidine 4 mg tablet Discontinued0.ROUTE.CFTJMMY835Ullwvw 2023 7:56pmNovember 2023 2:36pm TAKE 1/2 (ONE-HALF) TO 1 (ONE) TABLET BY MOUTH EVERY DAY AT BEDTIMEEzetimibe 10 mg fmnptcTuxjgqlrslyf18BXRRQihih49289Abuudxyem 2023 11:00pmNovember 2023 2:35pmSertraline 100 mg genfhoYrpdiymisytd541DRDPOceatFwjyhbnbo 2023 11:00pmSeptember 2023 5:11pmSertraline 100 mg kfdjtfBfxrkdmguuyq622XBKA Gktoh277750Spgbtenor 2023 5:10pmJune 2024 8:24amTamsulosin 0.4 mg capsuleDiscontinued0.4MGPODaily at qhaltof04204Oqcidij 2023 11:00pm November 11, 2024 9:39amAmlodipine 10 mg tabletDiscontinued0.ROUTE.FWWUVFX371 September 10, 2024 6:59amDecember 2023 7:00amTAKE 1 TABLET DAILYBenazepril 40 mg tabletDiscontinued0.ROUTE.FPFPRCX574Zemwzjau 4th, 2024 6:59amJune 2024 8:24amTAKE 1 TABLET DAILYAmlodipine 10 mg tabletDiscontinued0.ROUTE.COMPLEX 903D2023 7:00amJune 2024 8:24amTAKE 1 TABLET DAILYBudesonide- Formoterol 160-4.5 mcg/actuation HFA aerosol inhalerDiscontinued0.ROUTE.COMPLEX 30.63March 2024 7:34amAugust 2024 9:41amUSE 2 INHALATIONS EVERY 12 HOURSMetformin 500 mg tabletDiscontinued0.ROUTE.QWEFAHE055Uerva 2024 7:34am 2025 8:24amTAKE 1 TABLET DAILYAlbuterol Sulfate 90 mcg/actuation HFA aerosol agllngcScrrpf3IETLKLVEROLOZQwitwt 6 to 8 hours as needed for shortness of breath or wheezing8.22831Sbprd 2024 8:59amComplies with drug therapy Tadalafil 5 mg kxgrmnBbrxusamwlys9RYDMCjhal14143Wrxfn 2024 8:59amMarch 2024 10:33amGabapentin 100 mg zpxbzarIoqwwtubutcb655CAHYBmonl05088Fiahr 2024 8:59amJune 2024 8:24amTadalafil 5 mg wujgrjHimcwc1XVBCRrbej10807 December 30, 2024 10:33amComplies with drug therapyAmlodipine 10 mg tabletActive 24NWVFEntzs61748Oxig 2024 8:22amComplies with drug therapyBenazepril 40 mg nraujsOvtwzl27MOPBYnzkj47475Gtyh 2024 8:22amComplies with drug therapy Gabapentin 100 mg tgoenrpAninhh474WDNVRlckq72919Vtpw 2024 8:23amComplies with drug therapyMetformin 500 mg mxxftbRulslc503FLXIRvays37463Wlte 2024 8:23amComplies with drug therapySertraline 100 mg dcxqdfIwiuvi600WITKVxdce577645 2025 8:23amComplies with drug therapyBudesonide-Formoterol 160-4.5 mcg/actuation HFA aerosol oqeasatDjiimz2WAYWNWKAQWIJRNJobdu 12 hours30.6903 May 14, 2025 9:40amComplies with drug therapyMetformin 500 mg tablet Gxuhufpyvvoq758CCHOMntmmZuvqldfyh 2016 11:00pm[facility] 2023 10:49am Benazepril 40 mg ubbpbhRldldyzeltkj61VKKSDrmonBkghevpku 2016 11:00pm September 10, 2024 6:59amOmeprazole 20 mg tablet,delayed release (DR/EC) Txayyvujhgej81QDCIDgfluHumtumwtk 2016 11:00pm[facility] 2023 11:16am Albuterol Sulfate 90 mcg/actuation HFA aerosol gotfncdWbdrshpzgsjy9MHJN INHALATIONevery 6 to 8 hours as neededSumma Health [facility] 2023 12:00amMarc 2023 12:36pmAmlodipine 10 mg xcylhsOhfjeszzsebd51QPCMUpfrxBoueb 2023 12:00am September 10, 2024 6:59amMometasone (Asmanex Hfa) 100 mcg/actuation HFA aerosol elbvxjeNjlrtyxqxpyv3DZKJMCHEUVIXMCCzobr dailySum[facility] Health [facility] 2023 12:00amMarch 2023 12:10pmLoratadine (Claritin) 10 mg phmgasCivrps03TUMGZgrxq as needed for allergy symptomsSumma Health [facility] 2023 12:00amComplies with drug therapyGabapentin 100 mg vstyqxcHegdzojlyzph903JVTCIseavPzqdz 2023 12:00amMarch 2024 9:00am Meloxicam 7.5 mg tabletDiscontinued7.5MGPODailySumma Health [facility] 2023 12:00amNoveer 2023 2:35pmBudesonide 180 mcg/actuation aerosol powdr breath activated Cgquxufujivz375NVYFVVYGVSGTJYchsv dailySumma Health [facility] 2023 12:00amMarch 2023 12:10pmSertraline 100 mg jwyhdpTnzolumzftef437JGSUYybpfVwegh 2023 12:00am December 12, 2023 10:49amMetformin 500 mg gettmuXgugusjicogy768ZUTSFvfba57090Zmkab 2023 10:48amMarch 2024 7:34amSertraline 100 mg vowwwrCngmtjfafdah848AH QBOtoob576458Kldmg 2023 10:49amMarch 2023 9:55pmAlbuterol Sulfate 90 mcg/actuation HFA aerosol hohsxkmRnukacmmhcqq3ZIBAFRJICHCXNGxkpnp 6 to 8 hours as needed for shortness of breath or wheezing8.5300[facility] 2023 12:35pmSum[facility] 2024 9:00amTadalafil 5 mg bjrccyGktopurqoorq9JNPNHkuju74801Ujdcydqo 2024 12:00amMarch 2024 9:00amNaproxen 500 mg hgnxvkFexuwh559HXXPFwequ daily as needed for nmde307356Mlhfbqik 2024 12:00amComplies with drug therapyCephalexin 500 mg wpujlvoVljcqlukjuaq954CBOKGxsyi times gffdq8700 June 22, 2024 11:00pmOctober 2023 10:42amFluticasone Furoate 50 mcg/actuation blister with ipgztvXlrdnnchptux2BPYCXPMGCETAJClwnyBtajb 2023 11:00pmSum[facility] 2023 12:08pmAsthma Unspecified asthma, uncomplicatedBudesonide-Formoterol 160-4.5 mcg/actuation HFA aerosol thoqkqcQdosvsximswa6KUQZTDOSPATRTWHeakm 12 hours10.2300Mar 2023 11:00pmSum[facility] 2023 12:14pmBudesonide-Formoterol 160-4.5 mcg/actuation HFA aerosol sdspndoUexeahgjqcsc9XHSFXBAJZYBUXFKlhes 12 hours30.6903[facility] 2023 12:13pmMar 2024 7:34amTizanidine 4 mg htkmddPbdmxaustakn0WKPRGzjph at rnzssmd17385Gnymol 2023 11:00pmAugust 2023 7:56pm1/2 - 1 PO q HS Immunizations Immunization Event Date Not Given Reason Dose Number Supervisor [employer]inter[employer] Plant Lot Number Reason(s) Given Vaccine Information Statement (VIS) Detail Administration Location COVID-19 Ad26.COV2.S ([place]) April 27, 2021 COVID-19 Ad26.COV2.S ([place])October 05OVID-19 (MODERNA) 12Y and olderSeptember OVID-19 (PFIZER) 12Y and olderJanuary 2023Influenza, seasonal, injectable, pfDecember [id number] [facility], unspecified formulationOctober 2017Pneumococcal Conjugate Vaccine, 13 valentSeptember 2015Pneumococcal Polysacc. Vaccine, 23 valentAugust 2022 Medical Equipment Device Date Implanted Device Details September 12, 2024UDI: [id number] Issuing Agency: [facility] Device Id: [id number] Expiration Date: 2026-09-17 Serial Number: [id number] sleep apnoea treatment system, respiration-sensingDeceer 2023UDI: ()[id number] Issuing Agency: [facility] Device Id: [id number] Expiration Date: 2027-05-02 Serial Number: [id number] 2023UDI: ()[id number] Issuing Agency: [employer] Device Id: [id number] Expiration Date: 2027-04-28 Serial Number: [id number] Relevant Diagnostic Tests and/or Laboratory Data Laboratory Results Test Collection Date/Time Result Date/Time Result Interpretation Reference Range Result Comment Performing Site Serum Viscosity September 07, 2025 3:46pm September 07 3:46pm 1.13 cP <=1.50INTERPRETIVE INFORMATION: Viscosity, SerumIncreased viscosity is associated with disorders such as monoclonal gammopathy, macroglobulinemia, and multiple myeloma. Significantly elevated viscosity (>3.0 cP) is associated with clinical symptoms of hyperviscosity syndrome.This test was developed and its performance characteristics determined by [facility]. It has not been cleared or approved by the US Food and Drug Administration. This test was performed in a CLIA certified laboratory and is intended for clinical purposes.Performed By: [facility] [place] [id number] Director: Donald Banda MD, PhDCLIA Number: [id number]/Lambda Light Chain RatioSeptember 07, 2025 3:46pmDecember 2024 3:46pm 1.250.26-1.65Albumin (Send Out)September 07, 2025 3:46pmDecember 2024 3:46pm4.32 g/dL3.43-5.41Immunofixation InterpretationDe2024 3:46pm September 07, 2025 3:46pmSerum Total ProteinSeptember 07, 2025 3:46pmDecemb2024 3:46pm6.6 g/dL6.3-8.3Izef-7-YzsplguuqgilsKwzehthu 1st, 2025 3:46pm September 08, 2025 10:38am1.7 mg/L<3.1Beta-2 Microglobulin test is performed using the [employer] immunoturbidimetric method. Results obtained with different methods or kits cannot be used interchangeably.Immunoglobulin A September 07, 2025 3:46pmDecember 2024 3:46pm82 mg/gT33-101Efsjqbi Aminotransferase (ALT/SGPT)September 07, 2025 3:46pmDecemb2024 3:46pm14 U/M87-77Bacv Acidce2024 3:46pmDecemb2024 8:04am4.8 mg/dL 4.0-8.1Phosphorus LevelSeptember 07, 2025 3:46pmDecemb2024 8:04am3.0 mg/dL2.7-4.8Lactate DehydrogenaseSeptember 07, 2025 3:46pmDecemb2024 8:44ot574 U/L506-509Ahfllkx CalciumSeptember 07, 2025 3:46pmDecember 2024 3:46pm1.30 mmol/L1.08-1.30Basophils # (Auto)September 07, 2025 3:46pmDecemb2024 3:46pm0.06 k/uL<0.11Free Lambda Light Chains, QuantSeptember 07, 2025 3:46pmDecemb2024 3:46pm11.8 mg/L5.7-26.3Rarely, increased serum free light chains levels may not be detected or accurately quantified due to prozone phenomenon or in high viscosity samples using this immunoturbidimetric assay. Correlation with other laboratory results and clinical findings is recommended. The Lambda Free Light Chain was performed using the Binding Site [employer] immunoturbidimetric method. Result obtained with differentassay methods or kits cannot be used interchangeably.Uuncv-9-JjjivyflzBsgcvjnf 1st, 2025 3:46pm September 07, 2025 3:46pm0.34 g/dL0.18-0.43Serum Immunofixationce2024 3:46pmDecemb2024 3:46pmM protein is present.Abnormal (applies to non-numeric results)No M protein is identified.Immunoglobulin GD2024 3:46pmDecemb2024 3:82vo613 mg/dLBelow low jrdved927-5707Kqrrjeb September 07, 2025 3:46pmDecemb2024 3:46pm4.7 g/dL3.9-4.9Ionized Calcium (pH Adjusted)September 07, 2025 3:46pmDecemb2024 3:46pm1.26 mmol/L 1.08-1.30Basophils (%) (Auto)September 07, 2025 3:46pmDecember 2024 3:46pm 0.8 %Free [place] Light Chains, QuantSeptember 07, 2025 3:46pmDecember 2024 3:46pm14.8 mg/L3.3-19.4Rarely, increased serum free light chains levels may not be detected or accurately quantified due to prozone phenomenon or in high viscosity samples using this immunoturbidimetric assay. Correlation with other laboratory results and clinical findings is recommended. The [place] Free Light Chain was performed using the Binding Site [employer] immunoturbidimetric method. Result obtained with different assay methods or kits cannot be used interchangeably.Ncbgg-2-VnjjmgvlsIwefjuiy 2024 3:46pmDecember 2024 3:46pm0.72 g/dL0.42-0.98Leuk/Lymph Sign Pathologist (Misc)September 07, 2025 3:46pmDecember 2024 3:46pmReviewed by Dr. Anjelica De León MDImmunoglobulin M September 07, 2025 3:46pmDecember 2024 3:46pm91 mg/fD37-091Bqurolnlw Amino Transf (AST/SGOT)September 07, 2025 3:46pmDecember 2024 3:46pm14 U/L14-40 Eosinophils # (Auto)September 07, 2025 3:46pmDecember 2024 3:46pm0.25 k/uL <0.46Beta GlobulinsDecemb2024 3:46pmDecember 2024 3:46pm0.68 g/dL 0.61-1.17Total BilirubinDece2024 3:46pmDecember 2024 3:46pm0.2 mg/dL0.2-1.3Eosinophils (%) (Auto)September 07, 2025 3:46pmDecember 2024 3:46pm3.2 %Gamma GlobulinsD2024 3:46pmDecember 2024 3:46pm0.53 g/dL0.53-1.51Carbon Dioxide LevelSeptember 07, 2025 3:46pmDecember 2024 3:46pm28 mmol/I49-22LivfiteahkVjfxisle 1st, 2025 3:46pmDecember 2024 3:46pm 14.5 g/dL13.0-17.0Protein Electrophoresis NoteD2024 3:46pmDece2024 3:46pmNo definitive M protein is identified on protein electrophoresis.No definitive M protein is identified on protein electrophoresis.Chloride LevelDe2024 3:46pmDece2024 3:46pm 106 mmol/U86-084Bwrvrmeglrh # (Auto)September 07, 2025 3:46pmDece2024 3:46pm1.35 k/uL1.00-4.00Protein Electrophoresis M-SpikeD2024 3:46pm September 07, 2025 3:46pm0.00 g/dL<=0.00CreatinineD2024 3:46pm September 07, 2025 3:46pm0.78 mg/dL0.73-1.22Lymphocytes (%) (Auto)September 07, 2025 3:46pmDece2024 3:46pm17.4 %Miscellaneous Test 6D2024 3:46pmDe2024 3:46pmSee commentNot Applicable.Random GlucoseDe2024 3:46pmDe2024 3:46pm91 mg/zW13-23Nno [place] Diabetes Association (ADA) provides guidance for cutoff [...] hyperglycemia or hyperglycemic crisis, random plasma glucose resultsgreater than or equal to 200 mg/dL meet the criteria for diagnosis of diabetes.Reference: [employer] in Diabetes 2016, [place] Diabetes Association. Diabetes Care. 2016.39(Suppl 1). Monocytes # (Auto)September 07, 2025 3:46pmDece2024 3:46pm0.64 k/uL <0.87Miscellaneous Test CommentDe2024 3:46pmDece2024 3:46pmReviewed by Dr. Ajnelica De León MDPotassium LevelDecemb2024 3:46pm September 07, 2025 3:46pm3.9 mmol/L3.7-5.1Neutrophils # (Auto)September 07, 2025 3:46pmDecember 2024 3:46pm5.46 k/uL1.45-7.50Neutrophils (%) (Auto)September 07, 2025 3:46pmDecember 2024 3:46pm70.1 %Sodium LevelDece2024 3:46pmDecember 2024 3:76jl757 mmol/LAbove high efpipu058-819Msssuspyh Red Blood Cells #September 07, 2025 3:46pmDecemb2024 3:46pm<0.01 k/uL<0.01 Blood Urea NitrogenDece2024 3:46pmDecemb2024 3:46pm30 mg/dL Above high normal9-24Platelet CountDece2024 3:46pmDecemb2024 3:66wn472 k/sE631-614Aenhzrvs PhosphataseDece2024 3:46pmDecemb2024 3:46pm90 U/X46-143Cuij Corpuscular HemoglobinDecemb2024 3:46pm September 07, 2025 3:46pm30.3 pg26.0-34.0Calcium LevelDece2024 3:46pm September 07, 2025 3:46pm9.7 mg/dL8.5-10.2Mean Corpuscular Hemoglobin Concent September 07, 2025 3:46pmDecemb2024 3:46pm34.7 g/dL30.5-36.0Anion Gap September 07, 2025 3:46pmDecemb2024 3:46pm11 mmol/L8-15Mean Corpuscular VolumeDece2024 3:46pmDecemb2024 3:46pm87.4 fL80.0-100.0 Estimated GFR (CKD-EPI)September 07, 2025 3:46pmDecemb2024 3:37tc896 mL/min/1.73m???>=60Estimated Glomerular Filtration Rate (eGFR) is calculated using the 2020 CKD-EPI creatinine equation. This equation utilizes serum creatinine, sex, and age as parameters. The creatinine assay has traceable calibration to isotope dilution-mass spectrometry. Refer to KDIGO guidelines for clinical interpretation. In patients with unstable renal function, e.g. those with acute kidney injury, the eGFRmay not accurately reflect actual GFR.Red Blood CountDe2024 3:46pmDecemb2024 3:46pm4.78 m/uL4.20-6.00 HematocritDe2024 3:46pmDecemb2024 3:46pm41.8 %39.0-51.0 Monocytes (%) (Auto)September 07, 2025 3:46pmDecemb2024 3:46pm8.2 % Corrected White Blood CountSeptember 07, 2025 3:46pmDecemb2024 3:46pm 7.78 k/uL3.70-11.00Nucleated RBC Relative Count (auto)September 07, 2025 3:46pm September 07, 2025 3:46pm0.0 /100{WBC}Red Cell Distribution WidthDe2024 3:46pmDecemb2024 3:46pm12.9 %11.5-15.0Mean Platelet VolumeSeptember 07, 2025 3:46pmDecemb2024 3:46pm9.9 fL9.0-12.7Differential Comment September 07, 2025 3:46pmDecemb2024 3:46pmAutoImmature Granulocyte # (Auto)September 07, 2025 3:46pmDecemb2024 3:46pm<0.03 k/uL<0.10Immature Granulocyte % (Auto)September 07, 2025 3:46pmDecemb2024 3:46pm0.3 % Vital Signs Vital Reading Result Reference Range Collection Date/Time Height 69 [in_i] September 16, 2025 12:25sjBzqzqr24.83 kgce2024 12:20pmHeart Rate74 /lfo05-777HphbltjbSeptember 16, 2025 12:20pmRespiratory rate12 /mpb19-39Ganxrcuf2024 12:20pmBP Jmuchyot740 mm[Hg]100-140Decemb2024 12:20pmBP Diastolic 72 mm[Hg]60-100December 2024 12:20pmBMI (Body Mass Index)25.9 kg/m2 September 16, 2025 12:20pm Advance Directives Advance Directive Response Recorded Date/ Time Advance Directives No September 08, 2025 7:49am Insurance Providers Guarantor Kodi Rivas Address [address] [address] Info.Home Phone: Coverage Status Update:2025 Payer Group Member ID Coverage Type Subscriber Relationship to Subscriber Effective Date Expiration Date MMO Id: [id number] Miriam Dontea Id: [id number] [address] [address] Home Phone: Email: [email or web address] Hospitaledicare [id number] Miriam Laraliata Id: [id number] [address] [address] Home Phone: Email: [email or web address] hospital [id number] Miriam Dontea Id: [id number] [address] [address] Home Phone: Email: [email or web address] Encounters Encounter Location(s) Arrival/Admit Date Discharge/Departure Date Discharge/Departure Disposition Provider(s) Non-patient / Non-visit -[facility] Elva ec2024 3:46pm OTONIEL Pittseparted Physician[facility] 11:48amSeptember 16, 2025 12:53pmDischarged to home care or self care (routine discharge)Joby Bose , DO Recent Diagnosis Onset Date Admit Date Asthma Unknown September 16, 025 11:48am Benign prostatic hyperplasia with lower urinary tract symptoms Unknown September 16, 2025 11:48am GERD (gastroesophageal reflux disease) Unknown September 16, 2025 11:48am HTN (hypertension) Unknown September 11:48am Hypercholesterolemia Unknown September 162024 11:48am Major depression Unknown September 16, 2025 11:48am Nicotine dependence Unknown September 11:48am TIANNA (obstructive sleep apnea) Unknown 2024 11:48am Type 2 diabetes mellitus with hyperglycemia Unkn own September 16, 2025 11:48am Screening PSA (prostate specific antigen) Unknow n September 16, 2025 11:48am Welcome to Medicare preventive visit Unknown September 16, 2025 11:48am Assessments Diagnosis Onset Date Resolution Status Admit Date Asthma acuteDe2024 11:48amBenign prostatic hyperplasia with lower urinary tract symptomsacuteSeptember 16, 2025 11:48amGERD (gastroesophageal reflux disease)acuteDe2024 11:48amHTN (hypertension)acuteSeptember 16, 2025 11:48amHypercholesterolemiaacuteDece2024 11:48amMajor depression acuteSeptember 16, 2025 11:48amNicotine dependenceacuteSeptember 16, 2025 11:48amOSA (obstructive sleep apnea)acuteSeptember 16, 2025 11:48amType 2 diabetes mellitus with hyperglycemiaacuteSeptember 16, 2025 11:48amScreening PSA (prostate specific antigen)noneactiveDe2024 11:48amWelcome to Medicare preventive visitnoneactiveDece2024 11:48am Plan of Treatment Author Avril Saucedo [facility] HospitalAuthoredSt[facility]2024 12:53pmI have instructed this patient to consume a healthy, low-fat, low-salt diet. I have also encouraged them to continue exercise with weight loss to achieve/maintain a BMI < 30. I have instructed this patient on the correct procedure for obtaining home BP measurements:? - rest for 5 minutes w/o talking. - positioned w/ feet on floor and arms supported. - average best 2/3 readings w/ goal < 135/85. - update office w/ home readings in 2 weeks. Continue Amlodipine without interruption I have instructed this patient to follow a comprehensive diabetic treatment plan. I have also instructed them to check their feet daily for calluses and nonhealing ulcers. I have instructed them to have a yearly dilated eye examination. I have reviewed their treatment goals: SBP less than 130, LDL less than 100, FBS less than 140, A1C less than 7%. I have instructed them to maintain a home BS log and bring the results to each of their office visits for review. I have explained the importance of routine monitoring of their A1C, Microalbumin and Lipids. I have explained the benefits of well controlled diabetes in preventing micro and macrovascular complications. Continue Metformin without interruption This patient has been encouraged to quit tobacco use immediately. They are aware of the hazards associated with tobacco use, including but not limited to respiratory infections, vascular disease and cancers. Scheduled for yearly LDCT chest for lung cancer screening is recommended. This patient is aware of the benefits associated with treatment of TIANNA: With continued use, the patient reduces the risk for NE, CVA, HTN, cardiac dysrhythmias and sudden cardiac deaths. The patient is also aware of the association between TIANNA and morning headaches, daytime somnolence, fatigue and obesity, which also has been improved with continued use. The patient is compliant with treatment, wearing the equipment every night for greater than 4 hours. The patient is instructed to continue use of the CPAP for TIANNA treatment. I have instructed this patient on a low fat, high fiber diet and exercise. I have discussed the primary and secondary prevention benefits attributed to lowering LDL cholesterol. I have also discussed the medical treatment of elevated cholesterol, which is based on the 10 year ASCVD risk. I have instructed this patient to avoid lying flat after eating.?? I have also recommended to avoid eating 2 hours prior to bedtime.?? They were also informed that smaller, frequent meals may be better tolerated. I have discussed additional treatment options for persistent symptoms, which includes: weight loss, H2 blockers and PPI. I have also instructed them to notify the office with any pain or difficulty swallowing. Instructed on a healthy diet and exercise routine. Instructed to continue medical treatment w/o interruption. Instructed to avoid abrupt d/c of medication due to w/d symptoms. No ER/hosp visits for acute exacerbation. Stopped maintenance therapy w/ LABA/ICS and doing well Continue OSMANI as needed I have recommended yearly PSA testing. I have informed him that the PSA can be elevated w/ cancer, infection and enlarged prostates. I have explained to the patient, that If his PSA is elevated, while there are many causes, referral will be recommended to r/o cancer. He would be referred to Urology, who may recommend an MRI, TRUS/bx or possibly continued monitoring. He is agreeable to this plan of action I have recommended yearly PSA testing. I have informed him that the PSA can be elevated w/ cancer, infection and enlarged prostates. I have explained to the patient, that If his PSA is elevated, while there are many causes, referral will be recommended to r/o cancer. He would be referred to Urology, who may recommend an MRI, TRUS/bx or possibly continued monitoring. He is agreeable to this plan of action c/o intolerable nasal congestion and sexual dysfunction w/ Flomax. Adding Sildenafil to Flomax doesn't help the sexual dysfunction. Discussed alternatives treatment options and suggested d/c Flomax and Sildenafil and replace w/ daily Cialis I have instructed this patient on the recommended lifestyle changes, which includes a low fat, high fiber diet along with a regular exercise routine. I have also reviewed the recommended age-appropriate preventive testing for this patient. I have also reviewed the recommended vaccines for their age and risk factors. Future Tests Future scheduled test information is unavailable Pending Tests Pending diagnostic test information is unavailable Future Visits Future appointment information is unavailable Future Procedures Procedure Name Ordered Date Scheduled Date A1C with Estimated Average Glu September 16 12:48pm Lipid PanelDecemb2024 12:46pmMicroAlb Creat Ratio,UDecember 2024 12:48pmPSA Screen (Yearly Only)September 16, 2025 12:46pm Future Medications Future medication information is unavailable Patient Instructions Patient instructions are unavailable
--- OUTSIDE RECORDS SUMMARY | 2025-09-23 09:24 | XMS_ITS | Clinical Summary ---
Author Organization [facility] Address [address] [place], [place] [address] Care Team Providers Care Drying Room Supervisor Name Role Phone Joon Piper MD Unavailable [phone] Zeynep Burton PALLIATIVE CARE NURSE.AIRLINE CAPTAIN Unavailable [phone] Diana Leong RN Unavailable [phone] Joby Bose DO Primary Care Provider [phone] Saranya Rowell RN RECOVERY Unavailable Unavailable Allergies Active AllergyReactionsCriticalityNoted DateCommentsAllopurinolUnknownHigh 09/10/2013torvastatinOther: See Ajkqblds67/02/2024oxycyclineGI UpsetHigh 06/23/2024 Other Reaction(s): Gastrointestinal Upset HydrocodoneOther: See Ontsxtph74/14/2024 Other Reaction(s): Unknown Reaction MetoclopramideOther: See Comments,Qdrlafw3107/08/2013 Other Reaction(s): Mental Status Change, panic attack, Unknown Other reaction(s): Mental Status Change Other Reaction(s): Mental Status Change Other Reaction(s): Hallucinating Metoclopramide HclMental Status Gdyrru8607/08/2013Tetanus And Diphtheria Toxoids DugukkektrwHlbz83/21/2017Tetanus Vaccines And ZmlqtoZaaycskuksb83/01/2013 Medications MedicationSigDispense QuantityRefillsLast FilledStart DateEnd DateStatus METFORMIN HCL (METFORMIN ORAL) Take 500 mg by mouth once daily.Active OMEPRAZOLE (PRILOSEC ORAL) Take 20 mg by mouth once daily.Active LORATADINE (CLARITIN ORAL) Take 10 mg by mouth as needed.Active sertraline (ZOLOFT) 100 mg tablet Take 100 mg by mouth twice daily. Active Benazepril HCl 40 mg tablet Take 40 mg by mouth once daily.Active sildenafil (VIAGRA) 100 mg tablet Take 100 mg by mouth as needed.04/07/2020Active albuterol HFA (PROVENTIL HFA, VENTOLIN HFA) 90 mcg/actuation inhaler INHALE 2 PUFFS BY MOUTH BIVFYA7808/19/2020Active amLODIPine (NORVASC) 10 mg tablet Take 10 mg by mouth once daily.07/26/2022ctive acetaminophen (TYLENOL EXTRA STRENGTH) 500 mg tablet Take 500 mg by mouth every 8 hours as needed.Active Ibuprofen 200 mg cap Take by mouth every 6 hours as needed.Active multivitamin tablet Take 1 tablet by mouth once daily.Active gabapentin (NEURONTIN) 100 mg capsule Indications:Paraneoplastic neuropathy (HCC)Take 1 capsule by mouth daily at bedtime for 180 days. 90 capsule 3Active Active Problems ProblemNoted DateDiagnosed DateParaneoplastic kdgjqepxzi35/11/2024[place] muzeclmylpmazwhft57/14/2020Controlled type 2 diabetes mellitus without complication, without long-term current use of apyqlme0509/29/2016 Overview (09/29/2016): Assessment: BG WNL Plan: continue metformin, continue to monitor Msoirihgfioya62/20/2016 Overview (09/28/2016): Procedure(s): 1. Right middle cranial fossa approach for CSF leak repair and cauterization of encephalocele 2. Intraoperative placement of lumbar SA drain 3. Placement of split thickness bone graft with Hydroset over bone defect in temporal bone 4. Placement of Duragen inlay and pericranial flap onlay after intradural exploration of dural defect 5. Cranioplasty using titanium mesh and residual bone flap Assessment: CT brain Plan: Continue SA drain 10cc/hour CSF leak07/27/2016 Overview (09/29/2016): Assessment: no drainage from the right ear Plan: EVD clamped after 8:30, monitor for drainage, check manual pressure tomorrow and if ICP WNL, SA drain can be removed. Neck pain on left side07/08/2013 Encounters DateTypeDepartmentCare AduuSyvzchvbywt49/08/2025 1:40 PM ESTVisit (SP) Office Hematology/Oncology [address] [place] [address] [place] [address] Joon Piper MD Waldenstrom macroglobulinemia (HCC) (Primary Dx); Paraneoplastic neuropathy (HCC); Malaise and fatigue; Malignant lymphoma, lymphoplasmacytic (HCC); Type 2 diabetes mellitus with diabetic polyneuropathy, without long-term current use of insulin (HCC); Type 2 diabetes mellitus without complication, without long-term current use of insulin (HCC); Encounter for other specified bpzanjuyz97/08/2459Cirlrg71/01/2025Telephone Hematology/Oncology [address] [place] [address] [place] [address] Diana Leong, LENNY Care Coordination (Appointment Request; Lab Orders)from Last 3 Months Immunizations ImmunizationAdministration DatesNext Dueinfluenza (IIV3) vaccine, trivalent (AFLURIA, FLULAVAL, FLUVIRIN, FLUZONE)07/21/2020influenza (IIV3) vaccine, trivalent, PF, intradermal (FLUZONE INTRADERMAL)08/03/2016influenza (IIV4) vaccine, age 6 mo - 64 yr, quadrivalent, PF (AFLURIA, FLUARIX, FLULAVAL, FLUZONE)07/20/2022,07/15/2020,07/15/2019,08/12/2018influenza (IIV4) vaccine, quadrivalent, PF, intradermal (FLUZONE INTRADERMAL)08/03/2017,07/14/2015 influenza (ccIIV3) vaccine, age 6+ mo, trivalent, PF (FLUCELVAX)06/12/2024 influenza (ccIIV4) vaccine, age 6+ mo, quadrivalent, PF (FLUCELVAX)10/26/2023 influenza vaccine, split virus07/17/2018influenza vaccine, unspecified sanforbovgn93/19/2024,07/21/2020,07/17/2018pneumococcal conjugate (PCV13) vaccine, 13 valent (PREVNAR 13)07/07/2016pneumococcal polysaccharide (PPV23) vaccine, 23 valent (PNEUMOVAX 23)06/06/2023respiratory syncytial virus (RSV) vaccine, bivalent (ABRYSVO)06/12/2024zoster (RZV) vaccine, recombinant (SHINGRIX)12/06/2023,06/27/2023 Family History Medical HistoryRelationCommentsheart disease [Other]FatherdeceasedDiabetesMother livingStrokeMotherMultiple SclerosisSisterRelationStatusCommentsFatherMother Sister Social History Tobacco UseTypesPacks/DayYears UsedDateSmoking Tobacco: Every JhwPbhxccfdsw487 Started: 03/08/1993; Last attempted to quit: 03/08/2018Passive Smoke Exposure: CurrentSmokeless Tobacco: Never Tobacco Cessation:Ready to Q uit: Not Asked Comments:quit 2017 Alcohol UseStandard Drinks/WeekCommentsNot Currently0 (1 standard drink = 0.6 oz pure alcohol)PHQ-2AnswerDate RecordedPHQ-2 /08/2025Area Deprivation IndexAnswerDate RecordedNational Score (1-100), lower number is lower risk74 02/09/2023State Score (1-10), lower number is lower heok6343Data from: https://www.neighborhoodatlas.medicine.[facility].edu/. Last address used for pzhqlywwwat[address]/09/2023Sex and Gender InformationValueDate Recorded Sex Assigned at BirthNot on fileLegal MloSlap0106/25/2013 1:40 PM EDTGender IdentityNot on fileSexual OrientationNot on file Last Filed Vital Signs Vital SignReadingTime TakenCommentsBlood Ujitpyij064/7609/14/2025 1:30 PM EST Auefc367709/14/2025 1:30 PM AEAJvgmnvabrts35.1 ??C (96.9 ??F)09/14/2025 1:30 PM ESTRespiratory Iihr710311/15/2024 1:30 PM ESTOxygen Yhghyeuptd09%09/14/2025 1:30 PM ESTInhaled Oxygen Concentration--Nkqbql94.1 kg (176 lb 9.4 oz)09/14/2025 1:30 PM YEAZzmljt888.6 cm (5' 9.53 )09/14/2025 1:30 PM ESTBody Mass Index25.68 09/14/2025 1:30 PM EST Plan of Treatment DateTypeDepartmentCare Team (Latest Contact Info)Lgeozsrkmgr93/02/2026 11:00 AM ESTOffice Visit [facility] [address] [address] lab12/14/2025 10:40 AM EDTVisit (SP) Office Hematology/Oncology [address] [place] [address] Joon Piper MD [address] [place] [address] RV 3 months consider RituxanHealth MaintenanceDue DateLast DoneCommentsDiabetic Foot Exam1974Dilated Retinal Exam1974Urine Albumin:Creatinine Ratio 1974Annual PCP Team Chronic Disease Visit1982Anxiety Screening 1982Depression Nubyqdnhv95/02/1982HIV Xburulfvn30/02/1982LDL Cholesterol 1982DTaP,Tdap,Td Vaccine (1 - Tdap)1983CT Ttlqwwzguwmj59/02/2009 Cologuard (FIT-DNA)2009Fecal Occult Blood03/09/20093406Oibipxhadtjdj53/02/2009 Lung Cancer Smowaqtwx44/09/20211721ZqE7E13/Medicare Advantage Annual Wellness Visit10/08/20249877Shyswmncuuh62/22/202504/, 4Colorectal Cancer Cnayynhlc56/22/2025ovid-19 Vaccine ( season)/02/2024, 10/26/2023, 10/05/2021, Additional history exists Influenza Vaccine (#1)/02/2024, 10/26/2023, 10/26/2023, Additional history existsProstate Cancer Screening Pxxkanpgwb95/28/35544511/04/2021 Pneumococcal Vaccine: 50+ (3 of 3 - PCV20 or PCV21)8006/06/2023, 07/07/2016Shingrix DlybhoaGyykciutr24/29/2024, 06/27/2023RSV VaccineCompleted 06/12/2024Hepatitis C HzzgyiljkMohfqkmbo78/06/2024 Medical Devices ImplantedTypeAreaManufacturerDevice IdentifierShelf Expiration DateModel / Serial / LotGraft Duragen Plus Bovine Collagen Matrix 3x3in Soft Tissue Patch - [id number] [facility]:Q[facility] [employer] [facility] 01/05/[id number] / / [id number]-Go-I-Qdcc Implant - [id number] Implanted:Qty: 1 on 09/27/2016 at [facility] CenterFhswkkLlysfqaPROBNFN90/21/[id number]- [id number] / / [id number]:Dirrect inject MURRAY Cement- trial only- do not chargeMesh Micro 47g04n7.2mm - [id number] Implanted:Qty: 1 on 09/27/2016 [facility]MeshRight: Head - CranialSTRY- HOWM [id number] / / Screw 1.5mm 4mm Bone Self Drill Cross Pin Craniomaxillofacial - [id number] Implanted:Qty: 9 [facility] - Cranial STRY-HOWM [id number] / / Procedures Procedure NamePriorityDate/TimeAssociated DiagnosisCommentsKAPPA/KING,FREE,SER Qlfkatr1809/07/2025 3:46 PM EST [place]strom macroglobulinemia (HCC) IMMUNOFIXATION SCREEN, JBHVLJlpswti73/01/2025 3:46 PM EST Wal[place]strom macroglobulinemia (HCC) IMMUNOGLOBULINS EWHAfgbbfh05/01/2025 3:46 PM EST [place]strom macroglobulinemia (HCC) PROTEIN ELECTROPHORESIS SERUM (P)Inrmnjw1509/07/2025 3:46 PM EST Waldenstrom macroglobulinemia (HCC) PROTEIN, TOTAL (FOR SEPG)Jejxagn0709/07/2025 3:46 PM EST Waldenstrom macroglobulinemia (HCC) SERUM PRVINFJTEXfhpugh34/01/2025 3:46 PM EST [place]strom macroglobulinemia (HCC) CALCIUM IONIZED BZCLSVncnvas39/01/2025 3:46 PM EST Waldenstrom macroglobulinemia (HCC) URIC ACID YDJWLJwovrja03/01/2025 3:46 PM EST Waldenstrom macroglobulinemia (HCC) MONOCLONAL PROTEIN, SERUM (BLOOD)Bcmwmfo4309/07/2025 3:46 PM EST [place]strom macroglobulinemia (HCC) PROTEIN ELECTROPHORESIS SERUM W/LSQHUFHfhpfed96/01/2025 3:46 PM EST Waldenstrom macroglobulinemia (HCC) PHOSPHORUS CDOPAHQEZJqpsckc64/01/2025 3:46 PM EST Waldenstrom macroglobulinemia (HCC) LD LACTATE XQVRAJMOoblghx30/01/2025 3:46 PM EST [place]strom macroglobulinemia (HCC) COMPREHENSIVE METABOLIC RHJJMDdtuppr40/01/2025 3:46 PM EST Wal[place]strom macroglobulinemia (HCC) CBC + HBMFGmquhsu05/01/2025 3:46 PM EST Waldenstrom macroglobulinemia (HCC) B2 MICROGLOBULIN WEpfhmhv66/01/2025 3:46 PM EST Waldenstrom macroglobulinemia (HCC) HEPATITIS C ANTIBODY IA WITH WMRSEFVSYCSASxdpttx48/06/2024 11:03 AM EST Malignant lymphoma, lymphoplasmacytic (HCC) HEMOGLOBIN K2JSkkuxgy03/28/2023 8:10 AM EDT [place]strom macroglobulinemia (HCC) Monoclonal gammopathy Malignant lymphoma, lymphoplasmacytic (HCC) Other iron deficiency anemia Type 2 diabetes mellitus with diabetic polyneuropathy, without long-term current use of insulin (HCC) PSA/PROSTSPECAG NHKGXshjdpk51/28/2022 8:34 AM EST Screening PSA (prostate specific antigen) CT CHEST W RXTEEYvkgwge25/12/2021 11:36 AM EDT Malignant lymphoma, lymphoplasmacytic (HCC) Unexplained night sweats Abnormal weight loss from Last 3 Months or Most Recently Relevant to Health Maintenance Results * (ABNORMAL) IMMUNOFIXATION SCREEN, SERUM (09/07/2025 3:46 PM EST)ComponentValue Ref RangeTest MethodAnalysis TimePerformed AtPathologist SignatureMPA ResultM protein is present.(A)No M protein is identified.09/08/2025 1:49 PM EST [facility] LABInterpretation (MPA)Atypical restricted bands are present in the IgM and kappa regions. Consistent with IgM kappa monoclonal gammopathy.09/08/2025 1:49 PM [facility] LABStaff Review (MPA) Reviewed by Dr. Anjelica De León MD09/08/2025 1:49 PM [facility] LABSpecimen (Source)Anatomical Location / LateralityCollection Method / Volume Collection TimeReceived TimeBloodBLOOD SPECIMEN / UnknownVenipuncture / Vstackp5809/07/2025 3:46 PM EST09/07/2025 3:46 PM EST Narrative Authorizing ProviderResult TypeResult StatusJoon Piper MDLABORATORYFinal ResultPerforming OrganizationAddressCity/State/ZIP CodePhone Number [facility] [address] [place] [address], * PROTEIN, TOTAL (FOR SEPG) (09/07/2025 3:46 PM EST)ComponentValueRef RangeTest MethodAnalysis TimePerformed AtPathologist SignatureProtein, Total6.66.3 - 8.0 g/dL09/08/2025 10:38 AM [facility] LABSpecimen (Source) Anatomical Location / LateralityCollection Method / VolumeCollection Time Received TimeBloodBLOOD SPECIMEN / UnknownVenipuncture / Rrqdazr2409/07/2025 3:46 PM EST09/07/2025 3:46 PM EST Narrative Authorizing ProviderResult TypeResult StatusJoon Piper MDLABORATORYFinal ResultPerforming OrganizationAddressCity/State/ZIP CodePhone Number [facility] [address] * PROTEIN ELECTROPHORESIS SERUM (P) (09/07/2025 3:46 PM EST)ComponentValueRef RangeTest MethodAnalysis TimePerformed AtPathologist SignatureAlbumin for SPE 4.323.43 - 5.41 g/dL09/08/2025 2:42 PM [facility] LABAlpha 1 Globulin0.340.18 - 0.43 g/dL09/08/2025 2:42 PM [facility] Alpha 2 Globulin0.720.42 - 0.98 g/dL09/08/2025 2:42 PM [facility] LABBeta Globulin0.680.61 - 1.17 g/dL09/08/2025 2:42 PM [facility] LABGamma Globulin0.530.53 - 1.51 g/dL09/08/2025 2:42 PM EST [facility] LABInterpretation (Prot Electro)No definitive M protein is identified on protein electrophoresis.No definitive M protein is identified on protein electrophoresis.09/08/2025 2:42 PM [facility] LABM- Protein Xqlwtnsi39/02/2025 2:42 PM [facility] LABComment:Not Applicable.M-Protein Concentration0.00<=0.00 g/dL09/08/2025 2:42 PM EST [facility] LABSPE Staff ReviewReviewed by Dr. Anjelica De León MD 09/08/2025 2:42 PM [facility] LABSpecimen (Source)Anatomical Location / LateralityCollection Method / VolumeCollection TimeReceived Time BloodBLOOD SPECIMEN / UnknownVenipuncture / Brcnsgt5009/07/2025 3:46 PM EST 09/07/2025 3:46 PM EST Narrative [facility] - 09/08/2025 2:42 PM EST Serum electrophoresis test was performed using the [employer] V8 NEXUS capillary electrophoresis method. Results obtained with different assay methods or kits cannot be used interchangeably. Authorizing ProviderResult TypeResult StatusVivetamia Piper MDLABORATORYFinal ResultPerforming OrganizationAddressCity/State/ZIP CodePhone Number [facility] [address] * KAPPA/KING,FREE,SER (09/07/2025 3:46 PM EST)ComponentValueRef RangeTest Method Analysis TimePerformed AtPathologist SignatureKappa Free, Serum14.83.3 - 19.4 mg/L111/09/2024 2:53 PM ESTMERCY [facility]OS[facility] LABComment: Rarely, increased serum free light chains levels may not be detected or accurately quantified due to prozone phenomenon or in high viscosity samples using this immunoturbidimetric assay. Correlation with other laboratory results and clinical findings is recommended. The [place] Free Light Chain was performed using the Binding Site Optilite immunoturbidimetric method. Result obtained with different assay methods or kits cannot be used interchangeably. Lambda Free, Serum11.85.7 - 26.3 mg/L111/09/2024 2:53 PM [facility]STMER[facility] LABComment: Rarely, increased serum free light chains levels may not be detected or accurately quantified due to prozone phenomenon or in high viscosity samples using this immunoturbidimetric assay. Correlation with other laboratory results and clinical findings is recommended. The Lambda Free Light Chain was performed using the Binding Site Optilite immunoturbidimetric method. Result obtained with different assay methods or kits cannot be used interchangeably. ?? K/L Ratio, Serum1.250.26 - 1.6509/08/2025 2:53 PM [facility] Specimen (Source)Anatomical Location / LateralityCollection Method / Volume Collection TimeReceived TimeBloodBLOOD SPECIMEN / UnknownVenipuncture / Unknown 09/07/2025 3:46 PM EST09/07/2025 3:46 PM EST Narrative Authorizing ProviderResult TypeResult StatusVivetamia Piper MDLABORATORYFinal ResultPerforming OrganizationAddressCity/State/ZIP CodePhone Number [facility] [address] [place] [address], * LACTATE DEHYDROGENASE (09/07/2025 3:46 PM EST)ComponentValueRef RangeTest MethodAnalysis TimePerformed AtPathologist AtoqwphwrFK998354 - 225 U/L 09/08/2025 8:04 AM [facility] LABSpecimen (Source) Anatomical Location / LateralityCollection Method / VolumeCollection Time Received TimeBloodBLOOD SPECIMEN / UnknownVenipuncture / Jwdyggi2209/07/2025 3:46 PM EST09/07/2025 3:46 PM EST Narrative Authorizing ProviderResult TypeResult StatusVivek Veronique NHLABORATORYFinal ResultPerforming OrganizationAddressCity/State/ZIP CodePhone Number [facility] [address] [place] [phone] * URIC ACID (09/07/2025 3:46 PM EST)ComponentValueRef RangeTest MethodAnalysis TimePerformed AtPathologist SignatureUric Acid4.84.0 - 8.1 mg/dL09/08/2025 8:04 AM [facility] LABSpecimen (Source)Anatomical Location / LateralityCollection Method / VolumeCollection TimeReceived Time BloodBLOOD SPECIMEN / UnknownVenipuncture / Areusyp8109/07/2025 3:46 PM EST 09/07/2025 3:46 PM EST Narrative Authorizing ProviderResult TypeResult StatusVivetamia Piper MDLABORATORYFinal ResultPerforming OrganizationAddressCity/State/ZIP CodePhone Number [facility] [address] [place] [phone] * SERUM VISCOSITY (09/07/2025 3:46 PM EST)ComponentValueRef RangeTest Method Analysis TimePerformed AtPathologist SignatureViscosity, Serum1.13<=1.50 cP 09/11/2025 7:40 AM ESTEAST[facility] LABORATORIESComment: INTERPRETIVE INFORMATION: Viscosity, Serum Increased viscosity is associated with disorders such as monoclonal gammopathy, macroglobulinemia, and multiple myeloma. Significantly elevated viscosity (>3.0 cP) is associated with clinical symptoms of hyperviscosity syndrome. This test was developed and its performance characteristics determined by [facility]. It has not been cleared or approved by the [place] Food and Drug Administration. This test was performed in a CLIA certified laboratory and is intended for clinical purposes. Performed By: [facility] [address] [place] [id number] Purchasing/Receiving: Donald Banda MD, PhD CLIA Number: [id number] Specimen (Source)Anatomical Location / LateralityCollection Method / Volume Collection TimeReceived TimeBloodBLOOD SPECIMEN / UnknownVenipuncture / Unknown 09/07/2025 3:46 PM EST09/07/2025 3:46 PM EST Narrative Authorizing ProviderResult TypeResult StatusVivetamia Arteaganeda SALDIVARLABORATORYFinal ResultPerforming OrganizationAddressCity/State/ZIP CodePhone Number [facility] [address] [phone] * PHOSPHORUS INORGANIC (09/07/2025 3:46 PM EST)ComponentValueRef RangeTest MethodAnalysis TimePerformed AtPathologist SignaturePhosphorus3.02.7 - 4.8 mg/dL09/08/2025 8:04 AM ESTNORTPROMEDICA [facility] LABSpecimen (Source)Anatomical Location / LateralityCollection Method / VolumeCollection TimeReceived TimeBloodBLOOD SPECIMEN / UnknownVenipuncture / Ndebvcs1409/07/2025 3:46 PM EST09/07/2025 3:46 PM EST Narrative Authorizing ProviderResult TypeResult StatusVivetamia edgaramaya SALDIVARLABORATORYFinal ResultPerforming OrganizationAddressCity/State/ZIP CodePhone Number [facility] [address] [place] [phone] * (ABNORMAL) IMMUNOGLOBULINS,IGG,IGA,IGM (09/07/2025 3:46 PM EST)ComponentValue Ref RangeTest MethodAnalysis TimePerformed AtPathologist VrvklvenrCbA797(L)700 - 1,600 mg/dL09/08/2025 10:23 AM [facility]DAY[facility] DUIIlX8360 - 400 mg/dL09/08/2025 10:23 AM [facility] AATRdQ8942 - 230 mg/dL 09/08/2025 10:23 AM [facility] LABSpecimen (Source)Anatomical Location / LateralityCollection Method / VolumeCollection TimeReceived Time BloodBLOOD SPECIMEN / UnknownVenipuncture / Pjyvdle6109/07/2025 3:46 PM EST 09/07/2025 3:46 PM EST Narrative Authorizing ProviderResult TypeResult StatusNickitamia Jennineda LABORATORYFinal ResultPerforming OrganizationAddressCity/State/ZIP CodePhone Number [facility] [address] [place] [address], * (ABNORMAL) COMPREHENSIVE METABOLIC PANEL (09/07/2025 3:46 PM EST)Component ValueRef RangeTest MethodAnalysis TimePerformed AtPathologist Signature Protein, Total6.86.3 - 8.0 g/dL09/08/2025 8:07 AM ESTRTPROMEDICA [facility] LABAlbumin4.73.9 - 4.9 g/dL09/08/2025 8:07 AM [facility] LABCalcium, Total9.78.5 - 10.2 mg/dL09/08/2025 8:07 AM [facility]RT[facility] LABBilirubin, Total0.20.2 - 1.3 mg/dL 09/08/2025 8:07 AM [facility] LABAlkaline Jghigekdeua7410 - 113 U/L111/09/2024 8:07 AM [facility] AHWVKC5584 - 40 U/L111/09/2024 8:07 AM [facility] BROCXA6222 - 54 U/L111/09/2024 8:07 AM [facility] GKMDyzipwq9967 - 99 mg/dL09/08/2025 8:07 AM [facility] LABComment: The [place] Diabetes Association (ADA) provides guidance for cutoff values for fasting glucose andrandom glucose. The ADA defines fasting as no caloric intake for at least 8 hours. Fasting plasma glucose results between 100 to 125 mg/dL indicate increased risk for diabetes (prediabetes). Fasting plasma glucose results greater than or equal to 126 mg/dL meet the criteria for diagnosis of diabetes. In the absence of unequivocal hyperglycemia, results should be confirmed by repeat testing. In a patient with classic symptoms of hyperglycemia or hyperglycemic crisis, random plasma glucose results greater than or equal to 200 mg/dL meet the criteria for diagnosis of diabetes. Reference: Standards of Medical Care in Diabetes 2016, [place] Diabetes Association. Diabetes Care. 2016.39(Suppl 1). BUN30(H)9 - 24 mg/dL09/08/2025 8:07 AM [facility] Creatinine0.780.73 - 1.22 mg/dL09/08/2025 8:07 AM [facility] GBSWjvkam042(H)136 - 144 mmol/L111/09/2024 8:07 AM [facility] LABPotassium3.93.7 - 5.1 mmol/L111/09/2024 8:07 AM [facility] GQXRfrbqzbr40952 - 107 mmol/L111/09/2024 8:07 AM [facility] MJWVJ71516 - 30 mmol/L111/09/2024 8:07 AM [facility] LABAnion Hlb115 - 15 mmol/L111/09/2024 8:07 AM [facility] LABEstimated Glomerular Filtration Svpu009 >=60 mL/min/1.73m 09/08/2025 8:07 AM [facility] LABComment:Estimated Glomerular Filtration Rate (eGFR) is calculated using the 2020 CKD-EPI creatinine equation. This equation utilizes serum creatinine, sex, and age as parameters. The creatinine assay has traceable calibration to isotope dilution- mass spectrometry. Refer to KDIGO guidelines for clinical interpretation. In patients with unstable renal function, e.g. those with acute kidney injury, the eGFRmay not accurately reflect actual GFR.Specimen (Source)Anatomical Location / LateralityCollection Method / VolumeCollection TimeReceived TimeBloodBLOOD SPECIMEN / UnknownVenipuncture / Mhzoytf0609/07/2025 3:46 PM EST09/07/2025 3:46 PM EST Narrative Authorizing ProviderResult TypeResult StatusJoon Piper MDLABORATORYFinal ResultPerforming OrganizationAddressCity/State/ZIP CodePhone Number [facility] [address] [place] [address] * CALCIUM, IONIZED (09/07/2025 3:46 PM EST)ComponentValueRef RangeTest Method Analysis TimePerformed AtPathologist SignatureNormalized Calcium1.261.08 - 1.30 mmol/L111/08/2024 10:38 PM [facility]STM[facility] LABCalcium Ionized, Whole Blood1.301.08 - 1.30 mmol/L111/08/2024 10:38 PM [facility]STM[facility] LABSpecimen (Source)Anatomical Location / LateralityCollection Method / Volume Collection TimeReceived TimeBloodBLOOD SPECIMEN / UnknownVenipuncture / Entbarm4309/07/2025 3:46 PM EST09/07/2025 3:46 PM EST Narrative Authorizing ProviderResult TypeResult StatusVivek Veronique SALDIVARLABORATORYFinal ResultPerforming OrganizationAddressCity/State/ZIP CodePhone Number [facility] [address] [place] [address], * COMPLETE BLOOD COUNT AND DIFFERENTIAL (09/07/2025 3:46 PM EST)ComponentValue Ref RangeTest MethodAnalysis TimePerformed AtPathologist SignatureWBC7.783.70 - 11.00 k/uL09/07/2025 4:05 PM [facility] LABRBC4.78 4.20 - 6.00 m/uL09/07/2025 4:05 PM [facility] Hpbjbdahcg71.513.0 - 17.0 g/dL09/07/2025 4:05 PM [facility] JEPObnkaowcai24.839.0 - 51.0 %09/07/2025 4:05 PM [facility] XIITCV90.480.0 - 100.0 fL09/07/2025 4:05 PM EST [facility] URHGMJ25.326.0 - 34.0 pg09/07/2025 4:05 PM [facility] CHAYRGB86.730.5 - 36.0 g/dL09/07/2025 4:05 PM [facility] LABRDW-CV12.911.5 - 15.0 % 09/07/2025 4:05 PM [facility] LABPlatelet Kxdvl749 150 - 400 k/uL09/07/2025 4:05 PM [facility] LABMPV 9.99.0 - 12.7 fL09/07/2025 4:05 PM [facility] LAB Neutrophils %70.1%09/07/2025 4:05 PM [facility] Abs Neut5.461.45 - 7.50 k/uL09/07/2025 4:05 PM [facility] LABLymphocytes %17.4%09/07/2025 4:05 PM [facility] LABAbs Lymph1.351.00 - 4.00 k/uL09/07/2025 4:05 PM [facility] LABMonocytes %8.2%09/07/2025 4:05 PM [facility] LABAbs Mono0.64<0.87 k/uL09/07/2025 4:05 PM [facility] LABEosinophils %3.2%09/07/2025 4:05 PM [facility] LABAbs Eosin0.25<0.46 k/uL09/07/2025 4:05 PM [facility] LABBasophils %0.8%09/07/2025 4:05 PM [facility] LABAbs Baso0.06<0.11 k/uL09/07/2025 4:05 PM [facility] LABImmature Granulocytes %0.3%09/07/2025 4:05 PM [facility] LABAbs Immature Gran<0.03<0.10 k/uL09/07/2025 4:05 PM [facility] LABNRBC0.0/100 WBC 09/07/2025 4:05 PM [facility] LABAbsolute nRBC<0.01 <0.01 k/uL09/07/2025 4:05 PM [facility] LABDiff Type Auto09/07/2025 4:05 PM [facility] LABSpecimen (Source)Anatomical Location / LateralityCollection Method / VolumeCollection TimeReceived TimeBloodBLOOD SPECIMEN / UnknownVenipuncture / Wbnkjvf0609/07/2025 3:46 PM EST09/07/2025 3:46 PM EST Narrative Authorizing ProviderResult TypeResult StatusVivetamia Piper MDLABORATORYFinal ResultPerforming OrganizationAddressCity/State/ZIP CodePhone Number [facility] [address] [place] [address] * B2 MICROGLOBULIN (09/07/2025 3:46 PM EST)ComponentValueRef RangeTest Method Analysis TimePerformed AtPathologist SignatureB2 Microglobulin1.7<3.1 mg/L 09/08/2025 10:38 AM [facility] LABComment:Beta-2 Microglobulin test is performed using the [employer] immunoturbidimetric method. Results obtained with different methods or kits cannot be used interchangeably.Specimen (Source)Anatomical Location / LateralityCollection Method / VolumeCollection TimeReceived TimeBloodBLOOD SPECIMEN / Unknown Venipuncture / Kphbefs5709/07/2025 3:46 PM EST09/07/2025 3:46 PM EST Narrative Authorizing ProviderResult TypeResult StatusVivetamia Piper MDLABORATORYFinal ResultPerforming OrganizationAddressCity/State/ZIP CodePhone Number [facility] [address] [place] [address], * HEPATITIS C ANTIBODY IA WITH CONFIRMATION (08/13/2024 11:03 AM EST)Component ValueRef RangeTest MethodAnalysis TimePerformed AtPathologist SignatureHep C Antibody BIHzfhkakbLjnndhmf60/06/2024 5:39 PM [facility] LABComment:The result suggests no evidence of active infection with Hepatitis C virus. Should recent infectionbe suspected, repeat testing may be considered 4-6 weeks after this draw.Specimen (Source)Anatomical Location / Laterality Collection Method / VolumeCollection TimeReceived TimeBloodBLOOD SPECIMEN / UnknownVenipuncture / Uxkvksr1108/13/2024 11:03 AM EST08/13/2024 11:04 AM EST Narrative Authorizing ProviderResult TypeResult StatusVivetamia Piper MDLABORATORYFinal ResultPerforming OrganizationAddressCity/State/ZIP CodePhone Number [facility] [address] [place] [address], [place] * (ABNORMAL) HGB A1C (02/02/2023 8:10 AM EDT)ComponentValueRef RangeTest Method Analysis TimePerformed AtPathologist SignatureHemoglobin A1C6.0(H)4.3 - 5.6 % 02/02/2023 9:04 PM [facility] LABComment:[place] Diabetes [employer] guidelines indicate that patients with HgbA1c in the range 5.7-6.4% are at increased risk for development of diabetes, and intervention by lifestyle modification may be beneficial. HgbA1c greater or equal to 6.5% is considered diagnostic of diabetes.Estimated Average Glucose 126mg/dL02/02/2023 9:04 PM [facility] LABComment:eAG: (Estimated average glucose) is a calculated value from HgbA1c and is patient portal representative of the average blood glucose level in the last 2-3 month period.Specimen (Source)Anatomical Location / LateralityCollection Method / VolumeCollection TimeReceived TimeBloodBLOOD SPECIMEN / UnknownVenipuncture / Fiarxuk4702/02/2023 8:10 AM EDT02/02/2023 8:10 AM EDT Narrative Authorizing ProviderResult TypeResult StatusHolaaron Burton APRN.CNPLABORATORY Final ResultPerforming OrganizationAddressCity/State/ZIP CodePhone Number [facility] [address] [place] [address], [place] * PSA/PROSTSPECAG SCRN (11/04/2021 8:34 AM EST)ComponentValueRef RangeTest MethodAnalysis TimePerformed AtPathologist SignaturePSA Screening2.51<2.60 ng/mL11/05/2021 7:10 AM ESTUniversity Hospitals Parma Medical Center LaboratoriesComment: Total PSA test methodology used is the electrochemiluminescence immunoassay by [employer]. Total PSA values by differing methodologies cannot be interchanged. Specimen (Source)Anatomical Location / LateralityCollection Method / Volume Collection TimeReceived TimeBloodOTHER / Plmpmmb7611/04/2021 8:34 AM EST11/04/2021 8:43 AM EST Narrative Authorizing ProviderResult TypeResult StatusJoon Piper MDLABORATORYFinal ResultPerforming OrganizationAddressCity/State/ZIP CodePhone Number [facility] [address] [place] [address] [facility] [address] [place] [address] * CT CHEST W IVCON (07/19/2021 11:36 AM EDT)Anatomical RegionLateralityModality ChestNuclear Medicine, Nuclear MedicineSpecimen (Source)Anatomical Location / LateralityCollection Method / VolumeCollection TimeReceived Time07/19/2021 11:36 AM EDT Impressions 07/20/2021 3:21 PM EDT IMPRESSION: 1. ??No evidence of intrathoracic lymphadenopathy. 2. ??Streaky scarring/discoid atelectasis in bilateral lower lobes. 3. ??Mild emphysematous changes of the lungs. Transcribe Date/Time: Jul 20 2021 ??2:55P Dictated by: SHARONA DICKINSON MD This examination was interpreted and the report reviewed and electronically signed by: SHARONA DICKINSON MD on Jul 20 2021 ??3:18PM ??EST Thank you for allowing us to participate in the care of your patient. Should there be any questions regarding this interpretation, please call [phone]. If you are unable to reach us at the number above, please feel free to contact [facility] eRadiology at [phone]. Narrative 07/20/2021 3:21 PM EDT * * *Final Report* * * DATE OF EXAM: Jul 19 2021 11:36AM ?? [facility] ?? 0539 ??- ??CT CHEST W IVCON ??/ PROCEDURE REASON: multiple diagnoses ? * * * * Physician Interpretation * * * * RESULT: EXAMINATION: ??CHEST CT WITH CONTRAST CLINICAL HISTORY: Neoplasm: lymphoma Technique: ??Spiral CT acquisition of the chest from the thoracic inlet to the upper abdomen following IV contrast. MQ: ??CTCW_6 Contrast: ??150 mL Omnipaque [address] Radiation dose: Integrated Dose-length product (DLP) for this visit = ?? 859 mGy*cm CT Dose Reduction Employed: Automated exposure control (AEC) Comparison: None available RESULT: Limitations: ??None. Lines, tubes, and devices: ??None. Lung parenchyma and airways: Streaky scarring/discoid atelectasis in the bilateral lower lobes. ??Bronchial wall thickening suggestive of bronchitis. ??Mild emphysematous changes of the lungs. ??Mild mucous plugging. ??The central airways are patent. Pleural space: ??No pleural effusion. ??No pleural thickening. Lower neck, lymph nodes, and mediastinum: ??The imaged thyroid gland is normal. ??No lymphadenopathy in the supraclavicular, axillary, mediastinal, or hilar regions. Heart, pericardium, and thoracic vessels: ??The thoracic aorta and main pulmonary artery are normal in caliber. The cardiac chambers are normal in size. No coronary artery atherosclerotic calcifications are noted, although the study is not optimized for coronary assessment. No pericardial effusion or thickening. Bones and soft tissues: ??No suspicious lytic or blastic osseous lesions. Upper abdomen: ??Please refer to the abdomen CT scan report for the abdomen findings. [employer] (topogram) images: No additional findings. Procedure Note Provider, [facility] - 07/20/2021 * * *Final Report* * * DATE OF EXAM: Jul 19 2021 11:36AM [facility] 0539 - CT CHEST W IVCON / PROCEDURE REASON: multiple diagnoses * * * * Physician Interpretation * * * * RESULT: EXAMINATION: CHEST CT WITH CONTRAST CLINICAL HISTORY: Neoplasm: lymphoma Technique: Spiral CT acquisition of the chest from the thoracic inlet to the upper abdomen following IV contrast. MQ: CTCW_6 Contrast: 150 mL Omnipaque [address] Radiation dose: Integrated Dose-length product (DLP) for this visit = 859 mGy*cm CT Dose Reduction Employed: Automated exposure control (AEC) Comparison: None available RESULT: Limitations: None. Lines, tubes, and devices: None. Lung parenchyma and airways: Streaky scarring/discoid atelectasis in the bilateral lower lobes. Bronchial wall thickening suggestive of bronchitis. Mild emphysematous changes of the lungs. Mild mucous plugging. The central airways are patent. Pleural space: No pleural effusion. No pleural thickening. Lower neck, lymph nodes, and mediastinum: The imaged thyroid gland is normal. No lymphadenopathy in the supraclavicular, axillary, mediastinal, or hilar regions. Heart, pericardium, and thoracic vessels: The thoracic aorta and main pulmonary artery are normal in caliber. The cardiac chambers are normal in size. No coronary artery atherosclerotic calcifications are noted, although the study is not optimized for coronary assessment. No pericardial effusion or thickening. Bones and soft tissues: No suspicious lytic or blastic osseous lesions. Upper abdomen: Please refer to the abdomen CT scan report for the abdomen findings. [employer] (topogram) images: No additional findings. IMPRESSION IMPRESSION: 1. No evidence of intrathoracic lymphadenopathy. 2. Streaky scarring/discoid atelectasis in bilateral lower lobes. 3. Mild emphysematous changes of the lungs. Transcribe Date/Time: Jul 20 2021 2:55P Dictated by: SHARONA DICKINSON MD This examination was interpreted and the report reviewed and electronically signed by: SHARONA DICKINSON MD on Jul 20 2021 3:18PM EST Thank you for allowing us to participate in the care of your patient. Should there be any questions regarding this interpretation, please call [phone]. If you are unable to reach us at the number above, please feel free to contact [facility] eRadiology at [phone]. Authorizing ProviderResult TypeResult StatusVivek Abhyankar MDCT-PAMAFinal Result from Last 3 Months or Most Recently Relevant to [place] [id number] Care Teams Team MemberRelationshipSpecialtyStart DateEnd Date Joby Bose DO [address] [place] [address] PCP - GeneralInternal Medicine11/07/21 Joon Piper MD [address] [address] PhysicianHematology/Oncology05/25/20 Zeynep Burton APRN.AIRLINE CAPTAIN [address] [place] [address] Nurse PractitionerHematology/Oncology05/25/20 Diana Leong, LENNY [address] [address] Specialty Care CoordinatorHematology/Oncology05/25/20 Saranya Rowell LSW Social Worker03/19/23
--- OUTSIDE RECORDS SUMMARY | 2025-09-23 09:24 | XMS_ITS ---
Author Organization [facility] Address [address] [place], [place] [address] Care Team Providers Care Game Artist Name Role Phone Joon Piper MD Unavailable [phone] Zeynep Burton TEACHER OF THE HANDICAPPED.JET DYEING MACHINE TENDER Unavailable [phone] Diana Leong RN Unavailable [phone] Joby Bose DO Primary Care Provider [phone] Saranya Rowell MANAGER MACHINE Unavailable Unavailable Active Problems ProblemNoted DateDiagnosed DateParaneoplastic ykgpxdsppg81/11/2024[place] rvuccryyyhlgcwrha93/14/2020Controlled type 2 diabetes mellitus without complication, without long-term current use of iawmgtk0709/29/2016 Overview (09/29/2016): Assessment: BG WNL Plan: continue metformin, continue to monitor Liatmxwribxuc03/20/2016 Overview (09/28/2016): Procedure(s): 1. Right middle cranial [...] be removed. Neck pain on left side07/08/2013 Current Treatment and Therapy Plans AMB RITUXIMAB 1400 D1 - Q60D X2 YEARS* Plan Start Date:11/12/2024 Plan Provider:Joon Piper MD Linked Problems Waldenstrom macroglobulinemi a (HCC) Treatment MedicationsCurrent Day (Day 1, Cycle 3 - Planned for 03/04/2025)Next Day (Day 1, Cycle 4 - Planned for 05/03/2025)* * riTUXimab-pvvr iv piggyback (RUXIENCE) * * riTUXimab-pvvr 700 mg in NaCl 0.9% 570 mL (RUXIENCE) * * riTUXimab-pvvr 700 mg in NaCl 0.9% 570 mL (RUXIENCE) Past Treatment and Therapy Plans Plan NameStart DateDiscontinue DateTreatment MedicationsDiscontinue ReasonPlan ProviderCyclesAMB RITUXIMAB 375 D1,8,15,22 - Q28D1/* riTUXimab- pvvr iv piggyback (RUXIENCE) Treatment CompleteAbJoon lobo MD1 of 1 cycle startedAMB RITUXIMAB 375/1400 D1,8,15,//20221008/04/2023* riTUXimab-pvvr iv piggyback (RUXIENCE) Joon Alicea MD1 of 1 cycle startedRITUXIMAB 375 D1,8,15,22 - Q28D /* riTUXimab iv piggyback (RITUXAN) Joon Alicea MD2 of 2 cycles started
--- OUTSIDE RECORDS SUMMARY | 2025-09-23 09:24 | XMS_ITS | Encounter Summary ---
Author Organization [facility] Address [address] [place] [address] Care Team Providers Care Optician Apprentice Dispensing Name Role Phone Joon Piper MD Unavailable [phone] Zeynep Burton APRN.ART HISTORY INSTRUCTOR Unavailable [phone] Diana Leong RN Unavailable [phone] Joby Bose DO Primary Care Provider [phone] Saranya Rowell FILTER PRESS TENDER HEAD Unavailable Unavailable Source Comments In the event this information is protected by the Federal Confidentiality of Alcohol and Drug AbusePatient Records regulations: The Federal rules restrict any use of the information to criminally investigate or prosecute any alcohol or drug abuse patient.[facility] Encounter Details DateTypeDepartmentCare Team (Latest Contact Info)Pyfzvzhjode17/08/2025Travel Social History Tobacco UseTypesPacks/DayYears UsedDateSmoking Tobacco: Every XacGbwapuycyi171 Started: 03/08/1993; Last attempted to quit: 03/08/2018Passive Smoke Exposure: CurrentSmokeless Tobacco: Never Comments:quit 2018 Alcohol UseStandard Drinks/WeekCommentsNot Currently0 (1 standard drink = 0.6 oz pure alcohol)PHQ-2AnswerDate RecordedPHQ-2 wcaar27511/15/2024rea Deprivation IndexAnswerDate RecordedNational Score (1-100), lower number is lower risk74 02/09/2023State Score (1-10), lower number is lower wbvz71002/09/2023ata from: https://www.neighborhoodatlas.[facility]/. Last address used for lznnhgcigax[address]02/09/2023Sex and Gender InformationValueDate Recorded Sex Assigned at BirthNot on fileLegal KcyCyci0206/25/2013 1:40 PM EDTGender IdentityNot on fileSexual OrientationNot on filedocumented as of this encounter Functional Status * Are you deaf or do you have serious difficulty hearing?AnswerDate of TwwkfmqnbdYscwonCs71/24/2016 12:24 PM Arden Travis * Are you blind or do you have serious difficulty seeing, even when wearing glasses?AnswerDate of ExbryvapztIgnbzsVq34/24/2016 12:24 PM Arden Travis * Do you have serious difficulty walking or climbing stairs?AnswerDate of ZnqxedvvgoQomdbyFt98/24/2016 12:24 PM Arden Travis * Do you have difficulty dressing or bathing?AnswerDate of AssessmentAuthorNo 09/30/2016 12:24 PM Arden Travis * Because of a physical, mental, or emotional condition, do you have difficulty doing errands alone such as visiting a doctor's office or shopping?AnswerDate of TzqzopxjotQubxdhPh95/24/2016 12:24 PM Arden Travis documented as of this encounter Mental Status * Because of a physical, mental, or emotional condition, do you have serious difficulty concentrating, remembering, or making decisions?AnswerEntry Date XwmpyrEc88/24/2016 12:24 PM Arden Travis documented in this encounter Plan of Treatment DateTypeDepartmentCare Team (Latest Contact Info)Ayyrbsesscp91/02/2026 11:00 AM ESTOffice Visit [facility] [address] [place] [address] [place] [address] lab12/14/2025 10:40 AM EDTVisit (SP) Office Hematology/Oncology [address] [place] [address] Joon Piper MD [address] [place] [address] [place] [address] RV 3 months consider Rituxandocumented as of this encounter Visit Diagnoses Not on filedocumented in this encounter Care Teams Team MemberRelationshipSpecialtyStart DateEnd Date Joby Bose DO [address] [place] [address] [place] [address] PCP - GeneralInternal Medicine11/07/21 Joon Piper MD [address] [place] [address] [place] [address] PhysicianHematology/Oncology05/25/20 Zeynep Burton APRN.ART HISTORY INSTRUCTOR [address] [place] [address] [place] [address] Nurse PractitionerHematology/Oncology05/25/20 Diana Leong, LENNY [address] [place] [address] [place] [address] Specialty Care CoordinatorHematology/Oncology05/25/20 Saranya Rowell LSW Social Worker03/19/23documented as of this encounter
--- OUTSIDE RECORDS SUMMARY | 2025-09-23 09:24 | XMS_ITS | Clinical Summary ---
Author Organization [facility] Address [address] [place] [address] Phone Care Team Providers Care Production Team Manager Name Role Phone Joby Bose DO Primary Care Provider [phone] Social History Tobacco UseTypesPacks/DayYears UsedDateSmoking Tobacco: Never AssessedSex and Gender InformationValueDate RecordedSex Assigned at BirthNot on fileLegal Sex Male09/01/2022 3:08 PM ESTGender IdentityNot on fileSexual OrientationNot on file Plan of Treatment Not on file Care Teams Team MemberRelationshipSpecialtyStart DateEnd Date Joby Bose DO [facility]04/23/18
--- OUTSIDE RECORDS SUMMARY | 2025-09-23 09:24 | XMS_ITS | Clinical Summary ---
Author Organization [employer] s [facility] Address [id number] [place] [address] Care Team Providers Care Tour Operator Name Role Phone Joby Bose DO Primary Care Provider [phone] Allergies Active AllergyReactionsCriticalityNoted DateCommentsAtorvastatinmuscle cramps 01/08/2024 EXPERIENCES FATIGUE WELL Euzwdqzrojjoee87/01/2013 Other reaction(s): Mental Status Change Tetanus And Diphtheria XbqcgmwKlitctldhxsFuut08/21/2017 Medications MedicationSigDispense QuantityRefillsLast FilledStart DateEnd DateStatus metFORMIN (GLUCOPHAGE) 500 mg tablet Take 1 tablet (500 mg total) by mouth respiratory nightly.Active sertraline (ZOLOFT) 100 mg tablet Take 2 tablets (200 mg total) by mouth respiratory nightly.Active amLODIPine (NORVASC) 5 mg tablet Take 1 tablet (5 mg total) by mouth respiratory nightly.Active benazepriL (LOTENSIN) 40 MG tablet Take 1 tablet (40 mg total) by mouth respiratory nightly.Active budesonide (PULMICORT) 0.25 mg/2 mL nebulizer solution Inhale 2 mL (0.25 mg total) by nebulization once daily.Active oniouzmwptyw-Wg-dlxp-minerals tablet Take 1 tablet by mouth respiratory nightly.Active gabapentin (NEURONTIN) 100 mg capsule Take 1 capsule (100 mg total) by mouth as needed.04/16/2023ctive omeprazole (PriLOSEC) 40 mg capsule Take 1 capsule (40 mg total) by mouth in the morning. 30 capsule 104/24/2024Active albuterol (PROVENTIL HFA;VENTOLIN HFA) 90 mcg/actuation inhaler Inhale 2 puffs daily as needed.12/19/2023ctive budesonide-formoteroL (SYMBICORT) 160-4.5 mcg/actuation inhaler Inhale 2 puffs in the morning and 2 puffs before bedtime.12/25/2023ctive CEPHalexin (KEFLEX) 500 mg capsule Take 1 capsule (500 mg total) by mouth 3 (three) times a day.06/23/2024ctive Active Problems No known active problems Family History Medical HistoryRelationNameCommentsHeart diseaseFatherHypertensionFatherDementia MotherHeart diseaseMotherStrokeMotherRelationNameStatusCommentsFatherDeceased MotherDeceased Social History Tobacco UseTypesPacks/DayYears UsedDateSmoking Tobacco: Every LnhBneurasuoc405 Smokeless Tobacco: Never Tobacco Cessation:Ready to Q uit: Not Asked; Counseling Given: Not Answered Alcohol UseStandard Drinks/WeekCommentsYes0 (1 standard drink = 0.6 oz pure alcohol)occasionallyChildcareAnswerDate BqbdnyjfJuphinxufZgpshvd81/12/2019 EmploymentAnswerDate WqtrfupuMczlfwcsalNqthcvt76/12/2019Hunger ScreeningAnswer Date RecordedWithin the past 12 months we worried whether our food would run out before we got money to buy more.Never True06/24/2024Within the past 12 months the food we bought just didn't last and we didn't have money to get more.Never True06/24/2024Sex and Gender InformationValueDate RecordedSex Assigned at Not on fileLegal EvaKlyu3605/13/2015 11:34 AM EDTGender IdentityNot on fileSexual OrientationNot on file Last Filed Vital Signs Vital SignReadingTime TakenCommentsBlood Fdtzpplq517/8306/24/2024 9:57 AM EDT Fjyxy365306/24/2024 9:57 AM JAWPmmxxsfrxlt95.8 ??C (98.3 ??F)01/28/2024 9:18 AM EDTRespiratory Yacq370901/28/2024 11:20 AM EDTOxygen Ohwzmgaige00%01/28/2024 11:20 AM EDTInhaled Oxygen Concentration--Pbiaqg26.8 kg (176 lb)06/24/2024 9:57 AM EDT Tajxkv872.3 cm (5' 9 )06/24/2024 9:57 AM EDTBody Mass Index25.9906/24/2024 9:57 AM EDT Plan of Treatment Health MaintenanceDue DateLast DoneCommentsDepression Syeyqvmzt49/02/1976 DTaP,Tdap and Td Vaccines (1 - Tdap)1983COVID-19 Vaccine (4 - season), 10/05/2021, 04/27/2021Influenza Pwvxjld9806/08/2025 06/12/2024, 10/26/2023, 07/20/2022, Additional history existsAdult BMI Screening Tobacco Jiubmzaap13olonoscopy01/27/2029 01/28/2024, 01/28/2024Zoster (Shingles) ViamkybKskhxvzth83/29/2024, 06/27/2023 RSV ( or age 60+ yrs)Pgliazlvy57/05/2024 Medical Devices Not on file Procedures Procedure NamePriorityDate/TimeAssociated DiagnosisCommentsPROVATION COLONOSCOPY Vmwmdhn9101/28/2024 8:56 AM EDT from Last 3 Months or Most Recently Relevant to Health Maintenance Results * Colonoscopy Report (01/28/2024 8:56 AM EDT)Specimen (Source)Anatomical Location / LateralityCollection Method / VolumeCollection TimeReceived Time Narrative SYSTEMGENERATED, DOCUMENTATION - 01/28/2024 8:56 AM EDT This order has been auto-finalized for image and report archival in PACs. *For full report details, please reach out to your physician. ??This image is visible to you in MyChart.* Authorizing ProviderResult TypeResult StatusMichael E Grillis DOIMG OR IMG ORDERABLESFinal Result from Last 3 Months or Most Recently Relevant to Health Maintenance Insurance Care Teams Team MemberRelationshipSpecialtyStart DateEnd Date Joby Bose DO PCP - GeneralInternal Medicine01/26/22
--- OUTSIDE RECORDS SUMMARY | 2025-09-23 09:24 | XMS_ITS | Clinical Summary ---
Author Organization [facility] Healthcare Address [address] [place] [address] Care Team Providers Care Squad Boss Name Role Phone Juice Joby Powers Primary Care Provider [phone] Valorie Sharona DO Unavailable [phone] Allergies Active AllergyReactionsCriticalityNoted RfdrPatktxtxRazaslnmawuik13/16/2024 Other Reaction(s): Unknown Reaction MqfctlxkqgxTwyf82/04/2013 Other Reaction(s): Unknown ZnsxjabgkaGdezdgb84/08/0166DsgvxbqtvcgYcqr04/16/2024 Other Reaction(s): Gastrointestinal Upset Yntlreyywvn80/16/2024 Other Reaction(s): Unknown Reaction Nmuhknfjaozkkz80/01/2013 Other Reaction(s): Mental Status Change, panic attack, Unknown Other reaction(s): Mental Status Change Other Reaction(s): Mental Status Change Other Reaction(s): Hallucinating Ksmoscg6106/07/2023 Other Reaction(s): Unknown Tetanus Toxoid-Containing Ozhtyesg11/08/4441Aglkomw-Mslfhw-Mlpgp Pertussis FjrcdzrpcebHtjw26/31/1966 Medications MedicationSigDispense QuantityRefillsLast FilledStart DateEnd DateStatus sildenafil (Viagra) 100 MG tablet 05/28/2023ctive sertraline (Zoloft) 100 MG tablet every 12 (twelve) hours.06/07/2016Active Multiple Vitamin (Multi-Vitamin) tablet Take 1 tablet by mouth in the morning.Active metFORMIN (Glucophage) 500 MG tablet 1 (one) time each day at the same time.06/07/2015ctive gabapentin (Neurontin) 100 MG capsule Take 100 mg by mouth at bedtime.04/16/2023ctive benazepril (Lotensin) 40 MG tablet Take 40 mg by mouth in the morning.Active amLODIPine (Norvasc) 5 MG tablet 1 (one) time each day at the same time.Active albuterol HFA 90 mcg/act inhaler 07/26/2022ctive Mometasone Furoate (Asmanex HFA) 100 MCG/ACT aerosol Inhale 2 (two) times a dayActive loratadine (Claritin Reditabs) 5 MG tablet dispersible dissolvable tablet Take 10 mg by mouth if neededActive Symbicort 160-4.5 MCG/ACT inhaler Inhale 2 puffs Daily12/25/2023ctive omeprazole (PriLOSEC) [address] capsule Take 40 mg by mouth in the morning. Take before meals. Do not crush or chew.. Active Active Problems ProblemNoted DateDiagnosed DateOSA (obstructive sleep apnea)02/13/2024 Qqhjngyccnp76/08/6165Yernflrst69/08/2024aresthesia of skin02/13/2024Snoring 02/13/20245851Zvcqrav47/08/7475Qqezkizk97/08/2024 Resolved Problems ProblemNoted DateDiagnosed DateResolved DateDysfunction of left eustachian tube Lumbago with sciatica, left sideLumbar galdmifbprd90Osteoarthritis of knee Fjxwahwn82SF leak Overview (03/18/2024): Assessment: no drainage from the right ear Plan: EVD clamped after 8:30, monitor for drainage, check manual pressure tomorrow and if ICP WNL, SA drain can be removed. Nowdfdfmfmzzn79 Overview (03/18/2024): Procedure(s): 1. Right middle cranial fossa approach [...] CT brain Plan: Continue SA drain 10cc/hour Controlled type 2 diabetes mellitus without complication, without long-term current use of jeqkvtz92 Overview (03/18/2024): Assessment: BG WNL Plan: continue metformin, continue to monitor Depressive zqjszurn26Essential sourvbudtxjg82/15/2013 03/18/2024Neck pain on left side Immunizations ImmunizationAdministration DatesNext DueInfluenza, injectable, MDCK, preservative free, gbxmulhnsstw56/19/2024Influenza, injectable, quadrivalent, preservative free07/20/2022,07/15/2020,07/15/2019,08/12/2018Influenza, intradermal, quadrivalent, preservative free08/03/2017,07/14/2015Influenza, seasonal, qptojaljrk78/14/2020Influenza, seasonal, intradermal, preservative free08/03/2016Pneumococcal Conjugate PCV 13007/07/2016Zoster, Recombinant 12/06/2023,06/27/2023 Family History Medical HistoryRelationNameCommentsAlcohol abuseFatherCoronary artery disease FatherHyperlipidemiaFatherHypertensionFatherCoronary artery diseaseMother DepressionMotherDiabetesMotherHyperlipidemiaMotherHypertensionMotherStrokeMother Alcohol abuseSiblingRelationNameStatusCommentsFatherMotherSibling Social History Tobacco UseTypesPacks/DayYears UsedDateSmoking Tobacco: Every DayCigarettes Smokeless Tobacco: Never Tobacco Cessation:Ready to Q uit: Not Asked; Counseling Given: Not Answered Alcohol UseStandard Drinks/WeekCommentsYes2 (1 standard drink = 0.6 oz pure alcohol)caffeine: 2-3 cups per dayAUDIT-CAnswerDate RecordedQ1: How often do you have a drink containing alcohol?2-3 times a week02/13/2024Q2: How many drinks containing alcohol do you have on a typical day when you are drinking?3 or 4 02/13/2024Q3: How often do you have six or more drinks on one occasion?Monthly 02/13/2024Sex and Gender InformationValueDate RecordedSex Assigned at BirthNot on fileLegal VyoFtjo6112/20/2022 6:38 PM EDTGender IdentityNot on fileSexual OrientationNot on file Last Filed Vital Signs Vital SignReadingTime TakenCommentsBlood Egipvjxx801/7804 1:11 PM EDT Awsvu3364 1:11 PM EDTTemperature--Respiratory Rate--Oxygen Ptbptkgihy58% 01/12/2025 1:11 PM EDTInhaled Oxygen Concentration--Abuhxt20.3 kg (177 lb) 01/12/2025 1:11 PM LTRMpinfb623.3 cm (5' 9 )11/12/2024 2:42 PM ESTBody Mass Index26.14011/12/2024 2:42 PM EST Plan of Treatment Not on file Insurance Care Teams Team MemberRelationshipSpecialtyStart DateEnd Date Joby Bose DO [address] [place] [address] PCP - GeneralInternal Medicine12/22/23 Sharona Eugene DO [address] [place] [address] Referring PhysicianNeurology12/11/24
[2025-09-23 11:02] LABS: Cholesterol 239 mg/dL (<=200); HDL Cholesterol 39 mg/dL (40-60); Triglycerides 54 mg/dL (<=150); VLDL CHOLESTEROL 10.8 mg/dL
[2025-09-23 11:25] LABS: Microalbum Creatinine Ratio Ur 14.0 mg/g (0.0-29.9)
== END 2025-09-23 09:13 | disposition home or self-care (01) ==
LOC: LAB 09:20
PROVIDERS: PCP Internal Medicine; Visit Provider Internal Medicine
DX: Z12.5 Encounter for screening for malignant neoplasm of prostate (principal); E78.00 Pure hypercholesterolemia, unspecified; E11.65 Type 2 diabetes mellitus with hyperglycemia
CPT/HCPCS: 36415; 80061; 82043; 82570; 83036; G0103

== ENCOUNTER 2025-10-05 13:13 | Outpatient (OUT) | payer MEDICARE, SELFPAY ==
--- OUTSIDE RECORDS SUMMARY | 2025-10-05 13:17 | XMS_ITS | Clinical Summary ---
Author Organization [facility] Address [address] [place] [address] Phone Care Team Providers Care Leather Case Finisher Name Role Phone Joby Bose DO Primary Care Provider [phone] Social History Tobacco UseTypesPacks/DayYears UsedDateSmoking Tobacco: Never AssessedSex and Gender InformationValueDate RecordedSex Assigned at BirthNot on fileLegal Sex Male09/01/2022 3:08 PM ESTGender IdentityNot on fileSexual OrientationNot on file Plan of Treatment Not on file Care Teams Team MemberRelationshipSpecialtyStart DateEnd Date Joby Bose DO [facility]04/23/18
--- OUTSIDE RECORDS SUMMARY | 2025-10-05 13:17 | XMS_ITS ---
Author Organization [facility] Address [address] [place], [place] [address] Care Team Providers Care Coremaker Bench Name Role Phone Joon Piper MD Unavailable [phone] Zeynep Burton MANAGER HYDRAULIC.DIRECTOR BUSINESS DEVELOPMENT Unavailable [phone] Diana Leong RN Unavailable [phone] Joby Bose DO Primary Care Provider [phone] Saranya Rowell RESEARCH BIOLOGIST Unavailable Unavailable Active Problems ProblemNoted DateDiagnosed DateParaneoplastic yrfgvzpoxw87/11/2024[place]strom txexnuufhbqieelbs56/14/2020Controlled type 2 diabetes mellitus without complication, without long-term current use of tuuqitu8109/29/2016 Overview (09/29/2016): Assessment: BG WNL Plan: continue metformin, continue to monitor Qzvsmdgfjrxyq65/20/2016 Overview (09/28/2016): Procedure(s): 1. Right middle cranial [...]
--- OUTSIDE RECORDS SUMMARY | 2025-10-05 13:17 | XMS_ITS | Clinical Summary ---
Author Organization [facility] Address [facility] [id number] [address] [place] [address] Care Team Providers Care Cad Drafter Name Role Phone Joby Bose DO Primary Care Provider [phone] Allergies Active AllergyReactionsCriticalityNoted DateCommentsAtorvastatinmuscle cramps 01/08/2024 EXPERIENCES FATIGUE WELL Iiihakajwggvmj81/01/2013 Other reaction(s): Mental Status Change Tetanus And Diphtheria BoqwlyuScosfbqdlwxIhan76/21/2017 Medications MedicationSigDispense QuantityRefillsLast FilledStart DateEnd DateStatus metFORMIN [...] (0.25 mg total) by nebulization once daily.Active iynnkvaurpra-Fg-pgna-minerals tablet Take 1 tablet by mouth respiratory [...] Social History Tobacco UseTypesPacks/DayYears UsedDateSmoking Tobacco: Every ElmFmkeglqmwr831 Smokeless Tobacco: Never Tobacco Cessation:Ready to Q uit: Not Asked; Counseling Given: Not Answered Alcohol UseStandard Drinks/WeekCommentsYes0 (1 standard drink = 0.6 oz pure alcohol)occasionallyChildcareAnswerDate FqefiddfXlxukynscJfecbgy54/12/2019 EmploymentAnswerDate IxpumigjUhrpsazdazVsruhry59/12/2019Hunger ScreeningAnswer Date RecordedWithin the past 12 months we worried whether our food would run out before we got money to buy more.Never True06/24/2024Within the past 12 months the food we bought just didn't last and we didn't have money to get more.Never True06/24/2024Sex and Gender InformationValueDate RecordedSex Assigned at Not on fileLegal AerMawk1405/13/2015 11:34 AM EDTGender IdentityNot on fileSexual OrientationNot on file Last Filed Vital Signs Vital SignReadingTime TakenCommentsBlood Dnpojnbb440/8306/24/2024 9:57 AM EDT Wexdr392906/24/2024 9:57 AM VKDHduzqtjcmjf06.8 ??C (98.3 ??F)01/28/2024 9:18 AM EDTRespiratory Upwi247101/28/2024 11:20 AM EDTOxygen Agdakzahhe82%01/28/2024 11:20 AM EDTInhaled Oxygen Concentration--Kfhodv00.8 kg (176 lb)06/24/2024 9:57 AM EDT Uzusnz465.3 cm (5' 9 )06/24/2024 9:57 AM EDTBody Mass Index25.9906/24/2024 9:57 AM EDT Plan of Treatment Health MaintenanceDue DateLast DoneCommentsDepression Hktekmtem29/02/1976 DTaP,Tdap and Td Vaccines (1 - Tdap)1983COVID-19 Vaccine (4 - season), 10/05/2021, 04/27/2021Influenza Pbkodzr3506/08/2025 06/12/2024, 10/26/2023, 07/20/2022, Additional history existsAdult BMI Screening Tobacco Xpoeherha73olonoscopy01/27/2029 01/28/2024, 01/28/2024Zoster (Shingles) YrdryylWjqwaybsh64/29/2024, 06/27/2023 RSV ( or age 60+ yrs)Opqzvcphh62/05/2024 Medical Devices Not on file Procedures Procedure NamePriorityDate/TimeAssociated DiagnosisCommentsPROVATION COLONOSCOPY Aorvwxn8701/28/2024 8:56 AM EDT from Last 3 Months [...]
--- OUTSIDE RECORDS SUMMARY | 2025-10-05 13:17 | XMS_ITS | Clinical Summary ---
Author Organization [facility] Healthcare Address [address] [place] [address] Care Team Providers Care Cardiovascular Operating Room Nurse Name Role Phone Juice Joby Powers Primary Care Provider [phone] Valorie Sharona DO Unavailable [phone] Allergies Active AllergyReactionsCriticalityNoted JqmqVszzwnmmLgydjqjzlpwnr65/16/2024 Other Reaction(s): Unknown Reaction TelytjbfdrzAyov19/04/2013 Other Reaction(s): Unknown CljomrykfqKthnzuq12/08/5444ViiygvntcscYtop91/16/2024 Other Reaction(s): Gastrointestinal Upset Eyvmwzjjdhy32/16/2024 Other Reaction(s): Unknown Reaction Bpbalzjranlnyn50/01/2013 Other Reaction(s): Mental Status Change, panic attack, Unknown Other reaction(s): Mental Status Change Other Reaction(s): Mental Status Change Other Reaction(s): Hallucinating Yiuszrk0706/07/2023 Other Reaction(s): Unknown Tetanus Toxoid-Containing Iiukiaov03/08/7695Nchftrj-Iiyumq-Bbjdw Pertussis EepbwrtlsooXgbi82/31/1966 Medications MedicationSigDispense QuantityRefillsLast FilledStart DateEnd DateStatus sildenafil [...] Problems ProblemNoted DateDiagnosed DateOSA (obstructive sleep apnea)02/13/2024 Vhuswqhgxen15/08/0572Ynfkvlbfv47/08/2024aresthesia of skin02/13/2024Snoring 02/13/20247064Bhcinmr77/08/2223Okjhpmhc41/08/2024 Resolved Problems ProblemNoted DateDiagnosed DateResolved DateDysfunction of left eustachian tube Lumbago with sciatica, left sideLumbar skvjjfczgye87Osteoarthritis of knee Kziwcrie21SF leak Overview (03/18/2024): Assessment: no drainage from the right ear Plan: EVD clamped after 8:30, monitor for drainage, check manual pressure tomorrow and if ICP WNL, SA drain can be removed. Olvikfkwtmbjr13 Overview (03/18/2024): Procedure(s): 1. Right middle cranial [...] without complication, without long-term current use of rcmjima92 Overview (03/18/2024): Assessment: BG WNL Plan: continue metformin, continue to monitor Depressive hkypceer89Essential szljcudphoxk23/15/2013 03/18/2024Neck pain on left side Immunizations ImmunizationAdministration DatesNext DueInfluenza, injectable, MDCK, preservative free, jpazdhlpwtnv31/19/2024Influenza, injectable, quadrivalent, preservative free07/20/2022,07/15/2020,07/15/2019,08/12/2018Influenza, intradermal, quadrivalent, preservative free08/03/2017,07/14/2015Influenza, seasonal, hzemhbaqgy15/14/2020Influenza, seasonal, intradermal, preservative free08/03/2016Pneumococcal Conjugate PCV 13007/07/2016Zoster, [...] InformationValueDate RecordedSex Assigned at BirthNot on fileLegal GtiEais7112/20/2022 6:38 PM EDTGender IdentityNot on fileSexual OrientationNot on file Last Filed Vital Signs Vital SignReadingTime TakenCommentsBlood Cdrgftyr671/7804 1:11 PM EDT Vtfke6740 1:11 PM EDTTemperature--Respiratory Rate--Oxygen Fmbxcmtqph44% 01/12/2025 1:11 PM EDTInhaled Oxygen Concentration--Paxwrl06.3 kg (177 lb) 01/12/2025 1:11 PM GCXOdmugh220.3 cm (5' 9 )11/12/2024 2:42 PM ESTBody Mass Index26.14011/12/2024 2:42 PM EST Plan of Treatment Not on file Insurance Care Teams Team MemberRelationshipSpecialtyStart DateEnd Date Joby Bose DO [address] [place] [address] PCP - GeneralInternal Medicine12/22/23 Sharona Eugene DO [address] [place] [address] Referring PhysicianNeurology12/11/24
--- OUTSIDE RECORDS SUMMARY | 2025-10-05 13:17 | XMS_ITS | Clinical Summary ---
Author Organization [facility] Address [address] [place], [place] [address] Care Team Providers Care Civil Transportation Engineer Name Role Phone Joon Piper MD Unavailable [phone] Zeynep Burton COMMODITY LEAD.LABORER POWERHOUSE Unavailable [phone] Diana Leong RN Unavailable [phone] Joby Bose DO Primary Care Provider [phone] Saranya Rowell TUB MENDER Unavailable Unavailable Allergies Active AllergyReactionsCriticalityNoted DateCommentsAllopurinolUnknownHigh 09/10/2013torvastatinOther: See Bpgfbdpu00/02/2024oxycyclineGI UpsetHigh 06/23/2024 Other Reaction(s): Gastrointestinal Upset HydrocodoneOther: See Mudvwgyq59/14/2024 Other Reaction(s): Unknown Reaction MetoclopramideOther: See Comments,Yhsmroh9707/08/2013 Other Reaction(s): Mental Status Change, panic attack, Unknown Other reaction(s): Mental Status Change Other Reaction(s): Mental Status Change Other Reaction(s): Hallucinating Metoclopramide HclMental Status Phpdaa4207/08/2013Tetanus And Diphtheria Toxoids QumcbmetqxgBrop90/21/2017Tetanus Vaccines And IfhwuhKpldxzpfrez49/01/2013 Medications MedicationSigDispense QuantityRefillsLast FilledStart DateEnd DateStatus METFORMIN [...] mcg/actuation inhaler INHALE 2 PUFFS BY MOUTH YDQVWS4608/19/2020Active amLODIPine (NORVASC) 10 mg tablet Take 10 [...] capsule 3Active Active Problems ProblemNoted DateDiagnosed DateParaneoplastic ldhjdpyrjs36/11/2024[place] khczqedisvzvmgzhs57/14/2020Controlled type 2 diabetes mellitus without complication, without long-term current use of jwqtyim9109/29/2016 Overview (09/29/2016): Assessment: BG WNL Plan: continue metformin, continue to monitor Qepstatxydgpk92/20/2016 Overview (09/28/2016): Procedure(s): 1. Right middle cranial [...] Neck pain on left side07/08/2013 Encounters DateTypeDepartmentCare AgnyCjajabvykmj51/08/2025 1:40 PM ESTVisit (SP) Office Hematology/Oncology [address] [place] [address] [place] [address] Joon Piper MD Waldenstrom macroglobulinemia (HCC) (Primary Dx); Paraneoplastic neuropathy (HCC); Malaise and fatigue; Malignant lymphoma, lymphoplasmacytic (HCC); Type 2 diabetes mellitus with diabetic polyneuropathy, without long-term current use of insulin (HCC); Type 2 diabetes mellitus without complication, without long-term current use of insulin (HCC); Encounter for other specified kxjvmewxw18/08/7687Nuaith46/01/2025Telephone Hematology/Oncology [address] [place] [address] [place] [address] Diana Leong, LENNY Care Coordination (Appointment Request; [...] (FLUCELVAX)10/26/2023 influenza vaccine, split virus07/17/2018influenza vaccine, unspecified pgpwdujxhiu84/19/2024,07/21/2020,07/17/2018pneumococcal conjugate (PCV13) vaccine, 13 valent (PREVNAR 13)07/07/2016pneumococcal polysaccharide (PPV23) vaccine, 23 valent (PNEUMOVAX 23)06/06/2023respiratory syncytial virus (RSV) vaccine, bivalent (ABRYSVO)06/12/2024zoster (RZV) vaccine, recombinant (SHINGRIX)12/06/2023,06/27/2023 Family History Medical HistoryRelationCommentsheart disease [Other]FatherdeceasedDiabetesMother livingStrokeMotherMultiple SclerosisSisterRelationStatusCommentsFatherMother Sister Social History Tobacco UseTypesPacks/DayYears UsedDateSmoking Tobacco: Every KjmXytpytpsid865 Started: 03/08/1993; Last attempted to quit: 03/08/2018Passive Smoke Exposure: CurrentSmokeless Tobacco: Never Tobacco Cessation:Ready to Q uit: Not Asked Comments:quit 2017 Alcohol UseStandard Drinks/WeekCommentsNot Currently0 (1 standard drink = 0.6 oz pure alcohol)PHQ-2AnswerDate RecordedPHQ-2 lwryx748/08/2025Area Deprivation IndexAnswerDate RecordedNational Score (1-100), lower number is lower risk74 02/09/2023State Score (1-10), lower number is lower spch9253Data from: https://www.neighborhoodatlas.medicine.[facility].edu/. Last address used for xmlmthfptus[address]02/09/2023Sex and Gender InformationValueDate Recorded Sex Assigned at BirthNot on fileLegal PtrBcth0206/25/2013 1:40 PM EDTGender IdentityNot on fileSexual OrientationNot on file Last Filed Vital Signs Vital SignReadingTime TakenCommentsBlood Nngbydpw823/7609/14/2025 1:30 PM EST Ljyvo812009/14/2025 1:30 PM EIMNugtkbeowoy34.1 ??C (96.9 ??F)09/14/2025 1:30 PM ESTRespiratory Bkem931011/15/2024 1:30 PM ESTOxygen Exjyavgkou67%09/14/2025 1:30 PM ESTInhaled Oxygen Concentration--Vblydd24.1 kg (176 lb 9.4 oz)09/14/2025 1:30 PM FELQmoamc367.6 cm (5' 9.53 )09/14/2025 1:30 PM ESTBody Mass Index25.68 09/14/2025 1:30 PM EST Plan of Treatment DateTypeDepartmentCare Team (Latest Contact Info)Ntqthjwkvmb56/02/2026 11:00 AM ESTOffice Visit [facility] [address] [facility] [facility] [place] [address] lab12/14/2025 10:40 AM EDTVisit (SP) Office Hematology/Oncology [address] [facility] [place] [address] Joon Piper MD [address] [facility] [facility] [place] [address] RV 3 months consider RituxanHealth MaintenanceDue DateLast DoneCommentsDiabetic Foot Exam1974Dilated Retinal Exam1974Urine Albumin:Creatinine Ratio 1974Annual PCP Team Chronic Disease Visit1982Anxiety Screening 1982Depression Izogpmxqt12/02/1982HIV Diwllovln32/02/1982LDL Cholesterol 1982DTaP,Tdap,Td Vaccine (1 - Tdap)1983CT Weuqhmognhin22/02/2009 Cologuard (FIT-DNA)2009Fecal Occult Blood03/09/20098966Nnfgyufroulau98/02/2009 Lung Cancer Udnlanywp37/09/20210623WgB6W35/Medicare Advantage Annual Wellness Visit10/08/20246052Yehanorxepu15/22/202504/, 4Colorectal Cancer Fxtxfvpcn01/22/2025ovid-19 Vaccine ( season)/02/2024, 10/26/2023, 10/05/2021, Additional history exists Influenza Vaccine (#1)/02/2024, 10/26/2023, 10/26/2023, Additional history existsProstate Cancer Screening Tuaswvmvxe57/28/14801811/04/2021 Pneumococcal Vaccine: 50+ (3 of 3 - PCV20 or PCV21)8006/06/2023, 07/07/2016Shingrix TwfqiosXvorctzsb98/29/2024, 06/27/2023RSV VaccineCompleted 06/12/2024Hepatitis C PtoootvqzJhbqetzjq03/06/2024 Medical Devices ImplantedTypeAreaManufacturerDevice IdentifierShelf Expiration DateModel / Serial / LotGraft Duragen Plus Bovine Collagen Matrix 3x3in Soft Tissue Patch - [id number] Implanted:Qty[facility] 01/05/[id number] / / [id number]-Nk-P-Chha Implant - [id number] Implanted:Qty: 1 on 09/27/2016 [facility]LrflmdYizxiyyGIFBKAO53/21/003184- [id number] / / [id number]:Dirrect inject MURRAY Cement- trial only- do not chargeMesh Micro 35v80h9.2mm - [id number] Implanted:Qty: 1 on 09/27/2016 [facility]: Head - CranialSTRY- HOWM [id number] / / Screw 1.5mm 4mm Bone Self Drill Cross Pin Craniomaxillofacial - [id number] Implanted:Qty: 9 [facility] - Cranial STRY-HOWM [id number] / / Procedures Procedure NamePriorityDate/TimeAssociated DiagnosisCommentsKAPPA/KING,FREE,SER Bmzrjkk4209/07/2025 3:46 PM EST Waldenstrom macroglobulinemia (HCC) IMMUNOFIXATION SCREEN, ZXDIRPjvcevn22/01/2025 3:46 PM EST Waldenstrom macroglobulinemia (HCC) IMMUNOGLOBULINS ANJCmibuhp52/01/2025 3:46 PM EST Waldenstrom macroglobulinemia (HCC) PROTEIN ELECTROPHORESIS SERUM (P)Fxolfql9509/07/2025 3:46 PM EST Waldenstrom macroglobulinemia (HCC) PROTEIN, TOTAL (FOR SEPG)Woizdgh8209/07/2025 3:46 PM EST Waldenstrom macroglobulinemia (HCC) SERUM OEILPWOPENqbvumw52/01/2025 3:46 PM EST Waldenstrom macroglobulinemia (HCC) CALCIUM IONIZED BWCSRYccauzv01/01/2025 3:46 PM EST Waldenstrom macroglobulinemia (HCC) URIC ACID XMLWDWbdqhzr75/01/2025 3:46 PM EST Waldenstrom macroglobulinemia (HCC) MONOCLONAL PROTEIN, SERUM (BLOOD)Rzagrnn8509/07/2025 3:46 PM EST Waldenstrom macroglobulinemia (HCC) PROTEIN ELECTROPHORESIS SERUM W/SPRWNETdtxakw58/01/2025 3:46 PM EST Waldenstrom macroglobulinemia (HCC) PHOSPHORUS IPPZFZRYFJxfaaid19/01/2025 3:46 PM EST Waldenstrom macroglobulinemia (HCC) LD LACTATE IABMZKIGcmmnbo26/01/2025 3:46 PM EST Waldenstrom macroglobulinemia (HCC) COMPREHENSIVE METABOLIC PPOMHNfcenzn30/01/2025 3:46 PM EST Waldenstrom macroglobulinemia (HCC) CBC + NODKDfynqmr65/01/2025 3:46 PM EST Waldenstrom macroglobulinemia (HCC) B2 MICROGLOBULIN DWthnsht28/01/2025 3:46 PM EST Waldenstrom macroglobulinemia (HCC) HEPATITIS C ANTIBODY IA WITH UMTSZKSRRYXICuuixek11/06/2024 11:03 AM EST Malignant lymphoma, lymphoplasmacytic (HCC) HEMOGLOBIN Y1VWnvxvqe45/28/2023 8:10 AM EDT Waldenstrom macroglobulinemia (HCC) Monoclonal gammopathy Malignant lymphoma, lymphoplasmacytic (HCC) Other iron deficiency anemia Type 2 diabetes mellitus with diabetic polyneuropathy, without long-term current use of insulin (HCC) PSA/PROSTSPECAG YQUENonqfcj60/28/2022 8:34 AM EST Screening PSA (prostate specific antigen) CT CHEST W LVGYPYgxjmih06/12/2021 11:36 AM EDT Malignant lymphoma, lymphoplasmacytic (HCC) Unexplained night sweats Abnormal weight loss from Last 3 Months or Most Recently Relevant to Health Maintenance Results * (ABNORMAL) IMMUNOFIXATION SCREEN, SERUM (09/07/2025 3:46 PM EST)ComponentValue Ref RangeTest MethodAnalysis TimePerformed AtPathologist SignatureMPA ResultM protein is present.(A)No M protein is identified.09/08/2025 1:49 PM EST [facility] LABInterpretation (MPA)Atypical restricted bands are present in the IgM and kappa regions. Consistent with IgM kappa monoclonal gammopathy.09/08/2025 1:49 PM [facility] LABStaff Review (MPA) Reviewed by Dr. Anjelica De León MD09/08/2025 1:49 PM [facility] LABSpecimen (Source)Anatomical Location / LateralityCollection Method / Volume Collection TimeReceived TimeBloodBLOOD SPECIMEN / UnknownVenipuncture / Qifhqti3809/07/2025 3:46 PM EST09/07/2025 3:46 PM EST Narrative Authorizing ProviderResult TypeResult StatusJoon Piper MDLABORATORYFinal ResultPerforming OrganizationAddressCity/State/ZIP CodePhone Number [facility] [address] [place] [address], * PROTEIN, TOTAL (FOR SEPG) (09/07/2025 3:46 PM EST)ComponentValueRef RangeTest MethodAnalysis TimePerformed AtPathologist SignatureProtein, Total6.66.3 - 8.0 g/dL09/08/2025 10:38 AM [facility] LABSpecimen (Source) Anatomical Location / LateralityCollection Method / VolumeCollection Time Received TimeBloodBLOOD SPECIMEN / UnknownVenipuncture / Isiqklv5609/07/2025 3:46 PM EST09/07/2025 3:46 PM EST Narrative Authorizing ProviderResult TypeResult StatusJoon Piper MDLABORATORYFinal ResultPerforming OrganizationAddressCity/State/ZIP CodePhone Number [facility] [address] * PROTEIN ELECTROPHORESIS SERUM (P) (09/07/2025 3:46 PM EST)ComponentValueRef RangeTest MethodAnalysis TimePerformed AtPathologist SignatureAlbumin for SPE 4.323.43 - 5.41 g/dL09/08/2025 2:42 PM [facility] LABAlpha 1 Globulin0.340.18 - 0.43 g/dL09/08/2025 2:42 PM [facility] Alpha 2 Globulin0.720.42 - 0.98 g/dL09/08/2025 2:42 PM [facility] LABBeta Globulin0.680.61 - 1.17 g/dL09/08/2025 2:42 PM [facility] LABGamma Globulin0.530.53 - 1.51 g/dL09/08/2025 2:42 PM EST [facility] LABInterpretation (Prot Electro)No definitive M protein is identified on protein electrophoresis.No definitive M protein is identified on protein electrophoresis.09/08/2025 2:42 PM [facility] LABM- Protein Mgovnubk51/02/2025 2:42 PM [facility] LABComment:Not Applicable.M-Protein Concentration0.00<=0.00 g/dL09/08/2025 2:42 PM EST [facility] LABSPE Staff ReviewReviewed by Dr. Anjelica De León MD 09/08/2025 2:42 PM [facility] LABSpecimen (Source)Anatomical Location / LateralityCollection Method / VolumeCollection TimeReceived Time BloodBLOOD SPECIMEN / UnknownVenipuncture / Ttbtwtk4609/07/2025 3:46 PM EST 09/07/2025 3:46 PM EST Narrative [facility] - 09/08/2025 2:42 PM EST Serum electrophoresis test was performed using the Olocity V8 NEXUS capillary electrophoresis method. Results obtained with different assay methods or kits cannot be used interchangeably. Authorizing ProviderResult TypeResult StatusVivetamia Piper MDLABORATORYFinal ResultPerforming OrganizationAddressCity/State/ZIP CodePhone Number [facility] [address] * KAPPA/KING,FREE,SER (09/07/2025 3:46 PM EST)ComponentValueRef RangeTest Method Analysis TimePerformed AtPathologist SignatureKappa Free, Serum14.83.3 - 19.4 mg/L111/09/2024 2:53 PM ESTOHIOHEALTH GR[facility]Y [facility] LABComment: Rarely, increased serum free light chains levels may not be detected or accurately quantified due to prozone phenomenon or in high viscosity samples using this immunoturbidimetric assay. Correlation with other laboratory results and clinical findings is recommended. The [place] Free Light Chain was performed using the Binding Site Optilite immunoturbidimetric method. Result obtained with different assay methods or kits cannot be used interchangeably. Lambda Free, Serum11.85.7 - 26.3 mg/L111/09/2024 2:53 PM ESTOHIOHEALTH GR[facility]Y MEM[facility] LABComment: Rarely, increased serum free light [...] K/L Ratio, Serum1.250.26 - 1.6509/08/2025 2:53 PM ESTOHIOHE[facility] LAB Specimen (Source)Anatomical Location / LateralityCollection Method / Volume Collection TimeReceived TimeBloodBLOOD SPECIMEN / UnknownVenipuncture / Unknown 09/07/2025 3:46 PM EST09/07/2025 3:46 PM EST Narrative Authorizing ProviderResult TypeResult StatusVivetamia Piper MDLABORATORYFinal ResultPerforming OrganizationAddressCity/State/ZIP CodePhone Number [facility] [address] [place] [address], * LACTATE DEHYDROGENASE (09/07/2025 3:46 PM EST)ComponentValueRef RangeTest MethodAnalysis TimePerformed AtPathologist MbcbqwzswZM611104 - 225 U/L 09/08/2025 8:04 AM [facility] LABSpecimen (Source) Anatomical Location / LateralityCollection Method / VolumeCollection Time Received TimeBloodBLOOD SPECIMEN / UnknownVenipuncture / Wmekfih3509/07/2025 3:46 PM EST09/07/2025 3:46 PM EST Narrative Authorizing ProviderResult TypeResult StatusVivek Veronique WYLABORATORYFinal ResultPerforming OrganizationAddressCity/State/ZIP CodePhone Number [facility] [address] [place] [address] * URIC ACID (09/07/2025 3:46 PM EST)ComponentValueRef RangeTest MethodAnalysis TimePerformed AtPathologist SignatureUric Acid4.84.0 - 8.1 mg/dL09/08/2025 8:04 AM [facility] LABSpecimen (Source)Anatomical Location / LateralityCollection Method / VolumeCollection TimeReceived Time BloodBLOOD SPECIMEN / UnknownVenipuncture / Nwzwrqt0209/07/2025 3:46 PM EST 09/07/2025 3:46 PM EST Narrative Authorizing ProviderResult TypeResult StatusVivetamia Piper MDLABORATORYFinal ResultPerforming OrganizationAddressCity/State/ZIP CodePhone Number [facility] [address] [place] [phone] * SERUM VISCOSITY (09/07/2025 3:46 PM EST)ComponentValueRef RangeTest Method Analysis TimePerformed AtPathologist SignatureViscosity, Serum1.13<=1.50 cP 09/11/2025 7:40 AM ESTDZILTH-NA-O-DITH-[facility] LABORATORIESComment: INTERPRETIVE INFORMATION: Viscosity, Serum Increased viscosity is associated with disorders such as monoclonal gammopathy, macroglobulinemia, and multiple myeloma. Significantly elevated viscosity (>3.0 cP) is associated with clinical symptoms of hyperviscosity syndrome. This test was developed and its performance characteristics determined by [facility]. It has not been cleared or approved by the US Food and Drug Administration. This test was performed in a CLIA certified laboratory and is intended for clinical purposes. Performed By: [facility] [address] [place] [id number] Product Operations Associate: Donald Banda MD, PhD CLIA Number: [id number] Specimen (Source)Anatomical Location / LateralityCollection Method / Volume Collection TimeReceived TimeBloodBLOOD SPECIMEN / UnknownVenipuncture / Unknown 09/07/2025 3:46 PM EST09/07/2025 3:46 PM EST Narrative Authorizing ProviderResult TypeResult StatusVivetamia Arteaganeda SALDIVARLABORATORYFinal ResultPerforming OrganizationAddressCity/State/ZIP CodePhone Number [email or web address] [address] [address] * PHOSPHORUS INORGANIC (09/07/2025 3:46 PM EST)ComponentValueRef RangeTest MethodAnalysis TimePerformed AtPathologist SignaturePhosphorus3.02.7 - 4.8 mg/dL09/08/2025 8:04 AM ESTNORTMARSHFIELD MED[facility]ENTER LABSpecimen (Source)Anatomical Location / LateralityCollection Method / VolumeCollection TimeReceived TimeBloodBLOOD SPECIMEN / UnknownVenipuncture / Zpgzyql6009/07/2025 3:46 PM EST09/07/2025 3:46 PM EST Narrative Authorizing ProviderResult TypeResult StatusVivetamia edgaramaya SALDIVARLABORATORYFinal ResultPerforming OrganizationAddressCity/State/ZIP CodePhone Number [facility] [address] [place] [phone] * (ABNORMAL) IMMUNOGLOBULINS,IGG,IGA,IGM (09/07/2025 3:46 PM EST)ComponentValue Ref RangeTest MethodAnalysis TimePerformed AtPathologist OiheecwjhRzX115(L)700 - 1,600 mg/dL09/08/2025 10:23 AM [facility] JVOKiS3638 - 400 mg/dL09/08/2025 10:23 AM [facility] XBLLwS4694 - 230 mg/dL 09/08/2025 10:23 AM [facility] LABSpecimen (Source)Anatomical Location / LateralityCollection Method / VolumeCollection TimeReceived Time BloodBLOOD SPECIMEN / UnknownVenipuncture / Lgroqyv7509/07/2025 3:46 PM EST 09/07/2025 3:46 PM EST Narrative Authorizing ProviderResult TypeResult StatusNickitamia Jennineda LABORATORYFinal ResultPerforming OrganizationAddressCity/State/ZIP CodePhone Number [facility] [address] [place] [address], * (ABNORMAL) COMPREHENSIVE METABOLIC PANEL (09/07/2025 3:46 PM EST)Component ValueRef RangeTest MethodAnalysis TimePerformed AtPathologist Signature Protein, Total6.86.3 - 8.0 g/dL09/08/2025 8:07 AM [facility]RTMAR[facility]FIELD [facility] LABAlbumin4.73.9 - 4.9 g/dL09/08/2025 8:07 AM [facility] LABCalcium, Total9.78.5 - 10.2 mg/dL09/08/2025 8:07 AM [facility] LABBilirubin, Total0.20.2 - 1.3 mg/dL 09/08/2025 8:07 AM [facility] LABAlkaline Ojazbtmmqxj9861 - 113 U/L111/09/2024 8:07 AM [facility] EBDWBP2451 - 40 U/L111/09/2024 8:07 AM [facility] VPSKYA0432 - 54 U/L111/09/2024 8:07 AM [facility] LRAFlnfwmb6591 - 99 mg/dL09/08/2025 8:07 AM [facility] LABComment: The [place] Diabetes Association (ADA) provides guidance for cutoff [...] Standards of Medical Care in Diabetes 2016, [place] Diabetes Association. Diabetes Care. 2016.39(Suppl 1). BUN30(H)9 - 24 mg/dL09/08/2025 8:07 AM [facility] Creatinine0.780.73 - 1.22 mg/dL09/08/2025 8:07 AM [facility] LNBIdbdzi046(H)136 - 144 mmol/L111/09/2024 8:07 AM [facility] LABPotassium3.93.7 - 5.1 mmol/L111/09/2024 8:07 AM [facility] PCJIjsdnxuu76733 - 107 mmol/L111/09/2024 8:07 AM [facility] CDFIS39380 - 30 mmol/L111/09/2024 8:07 AM [facility] LABAnion Nhz644 - 15 mmol/L111/09/2024 8:07 AM [facility] LABEstimated Glomerular Filtration Ydcs438 >=60 mL/min/1.73m 09/08/2025 8:07 AM [facility] LABComment:Estimated Glomerular Filtration Rate (eGFR) is [...] VolumeCollection TimeReceived TimeBloodBLOOD SPECIMEN / UnknownVenipuncture / Aaqlyvu6509/07/2025 3:46 PM EST09/07/2025 3:46 PM EST Narrative Authorizing ProviderResult TypeResult StatusJoon Piper MDLABORATORYFinal ResultPerforming OrganizationAddressCity/State/ZIP CodePhone Number [facility] [address] [place] [address] * CALCIUM, IONIZED (09/07/2025 3:46 PM EST)ComponentValueRef RangeTest Method Analysis TimePerformed AtPathologist SignatureNormalized Calcium1.261.08 - 1.30 mmol/L111/08/2024 10:38 PM ESTOH[facility] LABCalcium Ionized, Whole Blood1.301.08 - 1.30 mmol/L111/08/2024 10:38 PM ESTOH[facility] LABSpecimen (Source)Anatomical Location / LateralityCollection Method / Volume Collection TimeReceived TimeBloodBLOOD SPECIMEN / UnknownVenipuncture / Zieinrf7609/07/2025 3:46 PM EST09/07/2025 3:46 PM EST Narrative Authorizing ProviderResult TypeResult StatusVivek Veronique SALDIVARLABORATORYFinal ResultPerforming OrganizationAddressCity/State/ZIP CodePhone Number [facility] [address] [place] [address], * COMPLETE BLOOD COUNT AND DIFFERENTIAL (09/07/2025 3:46 PM EST)ComponentValue Ref RangeTest MethodAnalysis TimePerformed AtPathologist SignatureWBC7.783.70 - 11.00 k/uL09/07/2025 4:05 PM [facility] LABRBC4.78 4.20 - 6.00 m/uL09/07/2025 4:05 PM [facility] LAB Oliucpggrr80.513.0 - 17.0 g/dL09/07/2025 4:05 PM [facility] POJXvutwsxjen06.839.0 - 51.0 %09/07/2025 4:05 PM [facility] UGSZHT10.480.0 - 100.0 fL09/07/2025 4:05 PM EST [facility] ZANYAO15.326.0 - 34.0 pg09/07/2025 4:05 PM [facility] NUPLLRQ06.730.5 - 36.0 g/dL09/07/2025 4:05 PM [facility] LABRDW-CV12.911.5 - 15.0 % 09/07/2025 4:05 PM [facility] LABPlatelet Rckdv986 150 - 400 k/uL09/07/2025 4:05 PM [facility] LABMPV 9.99.0 - 12.7 fL09/07/2025 4:05 PM [facility] LAB Neutrophils %70.1%09/07/2025 4:05 PM [facility] Abs Neut5.461.45 - 7.50 k/uL09/07/2025 4:05 PM [facility] LABLymphocytes %17.4%09/07/2025 4:05 PM [facility] LABAbs Lymph1.351.00 - 4.00 k/uL09/07/2025 4:05 PM [facility] LABMonocytes %8.2%09/07/2025 4:05 PM [facility] LABAbs Mono0.64<0.87 k/uL09/07/2025 4:05 PM [facility] LABEosinophils %3.2%09/07/2025 4:05 PM [facility] LABAbs Eosin0.25<0.46 k/uL09/07/2025 4:05 PM [facility] LABBasophils %0.8%09/07/2025 4:05 PM [facility] LABAbs Baso0.06<0.11 k/uL09/07/2025 4:05 PM [facility] LABImmature Granulocytes %0.3%09/07/2025 4:05 PM [facility] LABAbs Immature Gran<0.03<0.10 k/uL09/07/2025 4:05 PM [facility] LABNRBC0.0/100 WBC 09/07/2025 4:05 PM [facility] LABAbsolute nRBC<0.01 <0.01 k/uL09/07/2025 4:05 PM [facility] LABDiff Type Auto09/07/2025 4:05 PM [facility] LABSpecimen (Source)Anatomical Location / LateralityCollection Method / VolumeCollection TimeReceived TimeBloodBLOOD SPECIMEN / UnknownVenipuncture / Zutygbt1309/07/2025 3:46 PM EST09/07/2025 3:46 PM EST Narrative Authorizing ProviderResult TypeResult StatusVivetamia Piper MDLABORATORYFinal ResultPerforming OrganizationAddressCity/State/ZIP CodePhone Number [facility] [address] [place] [address] * B2 MICROGLOBULIN (09/07/2025 3:46 PM EST)ComponentValueRef RangeTest Method Analysis TimePerformed AtPathologist SignatureB2 Microglobulin1.7<3.1 mg/L 09/08/2025 10:38 AM [facility] LABComment:Beta-2 Microglobulin test is performed using the [employer] immunoturbidimetric method. Results obtained with different methods or kits cannot be used interchangeably.Specimen (Source)Anatomical Location / LateralityCollection Method / VolumeCollection TimeReceived TimeBloodBLOOD SPECIMEN / Unknown Venipuncture / Wvsjikf9009/07/2025 3:46 PM EST09/07/2025 3:46 PM EST Narrative Authorizing ProviderResult TypeResult StatusVivetamia Piper MDLABORATORYFinal ResultPerforming OrganizationAddressCity/State/ZIP CodePhone Number [facility] [address] [place] [address], * HEPATITIS C ANTIBODY IA WITH CONFIRMATION (08/13/2024 11:03 AM EST)Component ValueRef RangeTest MethodAnalysis TimePerformed AtPathologist SignatureHep C Antibody RNOvvhfvbbBnnugiou69/06/2024 5:39 PM [facility] LABComment:The result suggests no evidence of active infection with Hepatitis C virus. Should recent infectionbe suspected, repeat testing may be considered 4-6 weeks after this draw.Specimen (Source)Anatomical Location / Laterality Collection Method / VolumeCollection TimeReceived TimeBloodBLOOD SPECIMEN / UnknownVenipuncture / Facmznd3708/13/2024 11:03 AM EST08/13/2024 11:04 AM EST Narrative Authorizing ProviderResult TypeResult StatusVivetamia Piper MDLABORATORYFinal ResultPerforming OrganizationAddressCity/State/ZIP CodePhone Number [facility] [address] [place] [address], [place] * (ABNORMAL) HGB A1C (02/02/2023 8:10 AM EDT)ComponentValueRef RangeTest Method Analysis TimePerformed AtPathologist SignatureHemoglobin A1C6.0(H)4.3 - 5.6 % 02/02/2023 9:04 PM [facility] LABComment:[place] [employer] guidelines indicate that patients with HgbA1c in the range 5.7-6.4% are at increased risk for development of diabetes, and intervention by lifestyle modification may be beneficial. HgbA1c greater or equal to 6.5% is considered diagnostic of diabetes.Estimated Average Glucose 126mg/dL02/02/2023 9:04 PM [facility] LABComment:eAG: (Estimated average glucose) is a calculated value from HgbA1c and is patient support representative of the average blood glucose level in the last 2-3 month period.Specimen (Source)Anatomical Location / LateralityCollection Method / VolumeCollection TimeReceived TimeBloodBLOOD SPECIMEN / UnknownVenipuncture / Ijohurj1802/02/2023 8:10 AM EDT02/02/2023 8:10 AM EDT Narrative Authorizing ProviderResult TypeResult StatusHolaaron Burton APRN.CNPLABORATORY Final ResultPerforming OrganizationAddressCity/State/ZIP CodePhone Number [facility] [address] [place] [address], [place] * PSA/PROSTSPECAG SCRN (11/04/2021 8:34 AM EST)ComponentValueRef RangeTest MethodAnalysis TimePerformed AtPathologist SignaturePSA Screening2.51<2.60 ng/mL11/05/2021 7:10 AM ESTJoint [facility] District [facility] LaboratoriesComment: Total PSA test methodology used is the electrochemiluminescence immunoassay by [employer]. Total PSA values by differing methodologies cannot be interchanged. Specimen (Source)Anatomical Location / LateralityCollection Method / Volume Collection TimeReceived TimeBloodOTHER / Jqoqpdv3811/04/2021 8:34 AM EST11/04/2021 8:43 AM EST Narrative Authorizing ProviderResult TypeResult StatusJoon Piper MDLABORATORYFinal ResultPerforming OrganizationAddressCity/State/ZIP CodePhone Number [facility] [address] [place] [address] [facility] [address] [place] [address] * CT CHEST W IVCON (07/19/2021 11:36 [...] any questions regarding this interpretation, please call [phone]. If you are unable to reach us at the number above, please feel free to contact [facility]Radiology at [phone]. Narrative 07/20/2021 3:21 PM EDT * * [...] CT scan report for the abdomen findings. Time Study Statistician (topogram) images: No additional findings. Procedure Note Provider, [facility] - 07/20/2021 * * *Final Report* * * DATE OF EXAM: Jul 19 2021 11:36AM [facility] 0539 - CT CHEST W IVCON / [...] CT scan report for the abdomen findings. Time Study Statistician (topogram) images: No additional findings. IMPRESSION IMPRESSION: [...] any questions regarding this interpretation, please call [phone]. If you are unable to reach us at the number above, please feel free to contact [facility]iology at [phone]. Authorizing ProviderResult TypeResult StatusVivek Abhyankar MDCT-PAMAFinal Result from Last 3 Months or Most Recently Relevant to [place] [id number] Care Teams Team MemberRelationshipSpecialtyStart DateEnd Date Joby Bose DO [address] [place] [address] PCP - GeneralInternal Medicine11/07/21 Joon Piper MD [address] [place] [address] PhysicianHematology/Oncology05/25/20 Zeynep Burton APRN.[employer] [address] [place] [address] Nurse PractitionerHematology/Oncology05/25/20 Diana Leong, LENNY [address] [place] [address] Specialty Care CoordinatorHematology/Oncology05/25/20 Saranya Rowell LSW Social Worker03/19/23
--- OUTSIDE RECORDS SUMMARY | 2025-10-05 13:20 | XMS_ITS | CCD ---
Author Organization [facility] Care Team Providers Care Beauty Consultant Name Role Phone MAYRA PRINCEL Natali Unavailable Unavailable MAYRA PRINCEL Natali Unavailable Unavailable Aliza Gleason Unavailable Unavailable Aliza Gleason Unavailable Unavailable Joby Mays Unavailable Unavailabl Aliza Porras Unavailable Unavailable Veronique SALDIVAR, Joon Unavailable Micheal REGISTERED REPRESENTATIVE.BELINDA, Zeynep Unavailable Dang GALVEZ, Diana Unavailable [phone] Joby Mays DO Primary Care Provider Veronique SALDIVAR, Joon Unavailable [phone] Micheal REGISTERED REPRESENTATIVE.BELINDA, Zeynep Unavailable Dang GALVEZ, Diana Unavailable [phone] Joby Mays DO Primary Care Provider Veronique SALDIVAR, Joon Unavailable [phone] Dang GALVEZ, Diana Unavailable [phone] Joby Mays DO Primary Care Provider TABATHA, DR MCKEON Attending Unavailable BALL, DR MCKEON Admitting Unavailable [...] Consulting Unavailable Veronique SALDIVAR, Joon Unavailable Micheal REGISTERED REPRESENTATIVE.BELINDA, Zeynep Unavailable [phone] Dang GALVEZ, Diana Unavailable [phone] Ball DO, Joby Powers Primary Care Provider Tabatha Joby Unavailable Ball DO, Joby E Primary Care Provider Saranya Lemos Unavailable Unavailable Dang GALVEZ, Diana Unavailable [phone] Evan Eugene Primary Care Provider Josy Santana Unavailable Ball DO, Joby E Primary Care Provider OLAMIDE VELASQUEZ Attending Unavailable BALL, JOBY E Referring Unavailable BALL, JOBY Powers Primary Care Unavailable RANIMEJIA Attending Unavailable BALL, JOBY E Referring Unavailable BALL, JOBY Powers Primary Care Unavailable RANIMEJIA Attending Unavailable BALL, JOBY E Referring Unavailable BALL, JOBY Powers Primary Care Unavailable BALL, JOBY Powers Referring Unavailable BALL, JOBY Powers Primary Care Unavailable GRILLIS, LAZARA Powers Admitting Unavailable GRILLIS, LAZARA Powers Attending Unavailable GRILLISLAZARA Referring Unavailable BALL, JOBY Powers Primary Care Unavailable TRINO ISSA Attending Unavail able BALL, JOBY E Primary Care Unavailable GRILLIS, LAZARA Powers Attending Unavailable GRILLIS, LAZARA Powers Referring Unavailable BALL, JOBY Powers Primary Care Unavailable RANIMEJIA Referring Unavailable BALL, JOBY E Primary Care Unavailable Ball Joby SALDIVAR Primary Care Provider Ebenezer, Joby Attending Unavailable Ball, Joby Primary Care Unavailable Murcek, Joby Admitting Unavailable Murcek, Joby Admitting Unavailable Murcek, Joby Attending Unavailable Ball, Joby Primary Care Unavailable Ball Joby WEISS Primary Care Provider Murcek DO Joby Attending Provider Tabatha DO, Joby E Primary Care Provider Tabatha WEISS, Joby E Primary Care Provider Evan Eugene DO Unavailable SILKE HITCHCOCK Attending Unavailable MURCEK, JOBY Fang Attending Unavailable GILLMOSILKE Berman Referring Unavailable MURCEK, JOBY Fang Attending Unavailable GILLMOSILKE Berman Attending Unavailable MURCEK, JOBY Fang Attending Unavailable MURCEK, JOBY Fang Attending Unavailable MURCEK, JOBY Fang Attending Unavailable MURCEK, JOBY Fang Attending Unavailable VALORIE, EVAN Attending Unavailable BALL, JOBY E Referring Unavailable VALORIE, EVAN Attending Unavailable VALORIE, EVAN Attending Unavailable RACHAEL, TRINH Referring Unavailable BALL, JOBY E Primary Care Unavailable ABHYANKAR, JOON Attending Unavailable BALL, JOBY E Primary Care Unavailable ABHYANKAR, JOON Referring Unavailable BALL, JOBY E Primary Care Unavailable ABHYANKAR, JOON Referring Unavailable BALL, JOBY E Primary Care Unavailable BALL, JOBY E Primary Care Unavailable BALL, JOBY E Primary Care Unavailable BALL, JOBY E Primary Care Unavailable JENNIFERWANDA Attending Unavailable BALL, JOBY E Primary Care Unavailable BALL, JOBY E Primary Care Unavailable ABHYANKAR, JOON Referring Unavailable RACHAEL, TRINH Attending Unavailable BALL, JOBY E Primary Care Unavailable ABHYANKAR, JOON Referring Unavailable RACHAEL, TRINH Referring Unavailable BALL, JOBY E Primary Care Unavailable BALL, JOBY E Primary Care Unavailable RACHAEL, TRINH Referring Unavailable BALL, JOBY E Primary Care Unavailable WANDA RODRIGUEZ Attending Unavailable RACHAEL, TRINH Referring Unavailable BALL, JOBY E Primary Care Unavailable RACHAEL, TRINH Referring Unavailable BALL, JOBY E Primary Care Unavailable RACHAEL, TRINH Referring Unavailable RACHAEL, TRINH Attending Unavailable BALL, [...] JOBY E Primary Care Unavailable ABHYANKAR, JOON Attending Unavailable ABHYANKAR, JOON Referring Unavailable Allergies Allergy ClassificationReported Allergen(s)Allergy TypeDate of OnsetReaction(s) Facility (20 sources)Allopurinol; Translations: [ALLOPURINOL]Drug Dpemosj04-31-8968 [facility] ([facility])Metoclopramide; Translations: [METOCLOPRAMIDE HCL]Drug Allergy 70-38-7543Lngskx Status ChangeCincinnati Va Medical Center (7 sources)Iothalamic AcidDrug Oolxtmp74-56-7872QrjpbzsJnsvqetyw Clinic (2 sources)Tetanus Vaccines And Toxoid; Translations: [TETANUS VACCINES AND TOXOID]Drug Qflebsn14-70-3583OzsuthwfrgzJhjeiwpba Clinic (20 sources)Tetanus Vaccines And ToxoidDrug Zsaoslr81-92-4234Qazmfdorrxk [facility] (2 sources)IothalamateDrug Notxgsq07-12-2649RugSelect [facility] (10 sources)Acetaminophen / HYDROcodoneDrug AllergyUnkmountain view hospitalKraftwurx Other (20 sources)Metoclopramide; Translations: [METOCLOPRAMIDE]Drug Ccnadbj73-48-9717 Other: See Comments, UnknownSelect [facility] [place] (10 sources)Tetanus-Diphtheria Toxoids TdDrug allergyUnkCapital Region Medical Center Guardly Other (20 sources)amLODIPineDrug Bskuipl58-68-6460EyumqdvZgndt [facility] Other (20 sources)HMG-CoA reductase inhibitorDrug kymqsco43-12-4291KfrjbxjNnlpx [facility] Other (1 source)patient allergy list reviewed by nurse or physiciaPropensity to adverse eevbdvvcr30-79-5690Afhgjjm:Tink Other (20 sources)Acetaminophen; Translations: [ACETAMINOPHEN]Drug Mwmzgfa37-75-0681 Unknown [facility] (20 sources)HYDROcodone; Translations: [HYDROCODONE]Drug Zdielvt51-12-7620Cvcek: See [facility] (4 sources)Epmbhep-ZUZ-MzO Reductase Inhibitor; Translations: [Lcnmdbn-NCW-UxL Reductase Inhibitor]Allergy to hjwybsgnf68-55-8405Zemodwm Reaction, Muscle Pain [facility] [place] (20 sources)tetanus and diphtheria toxoids; Translations: [TETANUS AND DIPHTHERIA TOXOIDS]Allergy to ftjzuncjx01-43-7610ZuakhmnmlszTynyffszh Regional Medical Center (20 sources)Doxycycline; Translations: [doxycycline]Drug Ilmrdgz78-48-4678UP [facility] (20 sources)atorvastatin; Translations: [ATORVASTATIN]Drug Ucvoswb48-41-7447 Other: See Comments, muscle crampsProMedica Rep[facility] (20 sources)Tetanus vaccinePropensity to adverse swvubhubl26-26-8884GMWX [facility] (20 sources)Pfnfqzr-Bxpjgt-Vspjw PertussisPropensity to adverse reactions 17-18-6756EmacmohvgclNSIQ Healthcare (1 source)MetoclopramideDrug Tvjafsh73-54-8746CbwnhlbeoSelect Medical [facility] [place] [facility] Medications Current Medications MedicationDrug Class(es)DatesSig (Normalized)Sig (Original)acetaminophen 500 mg oral tablet (20 sources)take 1 tablet by mouth every eight hours as neededacetaminophen (TYLENOL EXTRA STRENGTH) 500 mg tablet Take 500 mg by mouth every 8 hours as needed. ActiveComment on above:Take 500 mg by mouth every 8 hours as needed. [id number] 200 actuat albuterol 0.09 mg/actuat metered dose inhaler (20 sources)beta2-Adrenergic AgonistStart: 78-48-4635rwrp 2 puff(s) by inhalation once daily as neededalbuterol (PROVENTIL HFA;VENTOLIN HFA) 90 mcg/actuation inhaler Inhale 2 puffs daily as needed. 12/19/2023 ActiveStart: 12-11-2023 End: 58-03-7921Auojmpkks Sulfate 90 mcg/actuation HFA aerosol inhaler Active 2 PUFF INHALATION every 6 to 8 hours as needed for shortness of breath or wheezing 8.5 December 19, 2023 12:35pmStart: 44-08-1192pspbrwety HFA 90 mcg/act inhaler 07/26/2022 ActiveStart: 01-99-4770kiihxtvxu HFA (PROVENTIL HFA, VENTOLIN HFA) 90 mcg/actuation inhaler INHALE 2 PUFFS BY MOUTH NEEDED 08/19/2020 Activetake 2 puff(s) by inhalation every four hours as neededVentolin HFA 108 (90 Base) MCG/ACT 2 puffs as needed Inhalation every 4 hrs ActiveComment on above:INHALE 2 PUFFS BY MOUTH NEEDEDAlbuterol 90 MCG/ACT (10 sources)Albuterol 90 MCG/ACT Inhalation ActiveamLODIPine (20 sources)Dihydropyridine Calcium Channel BlockerStart: 51-53-6804Yahfxogyxn 10 mg tablet Active 0 .ROUTE .COMPLEX September 10, 2024 7:00am TAKE 1 TABLET DAILYStart: 09-10-2024 End: 69-02-4591Jdxhovbjpz 10 mg tablet Discontinued 0 .ROUTE .COMPLEX September 10, 2024 6:59am September 10, 2024 7:00am TAKE 1 TABLET DAILYStart: 07-26-2022 End: 33-48-6148hzpi 1 tablet by mouth once dailyamLODIPine (NORVASC) 10 mg tablet Take 10 mg by mouth once daily. 07/26/2022 Active End: 81-33-2757vdZGDRQhte (Norvasc) 5 MG tablet 1 (one) time each day at the same time. ActiveComment on above:Take 5 mg by mouth once daily.Take 10 mg by mouth once daily.benazepril (20 sources)Angiotensin Converting Enzyme InhibitorStart: 13-82-1498Jkzrqhveeb 40 mg tablet Active 0 .ROUTE .COMPLEX September 10, 2024 6:59am TAKE 1 TABLET DAILYStart: 06-27-2017 End: 17-32-0594ycms 1 tablet by mouth once dailyBenazepril 40 mg tablet Discontinued 40 MG PO Daily June 26, 2017 11:00pm September 10, 2024 6:59amtake 1 tablet by mouth every twenty-four hoursBenazepril HCl 20 MG 1 tablet Orally Once a day ActiveComment on above:Take 40 mg by mouth once daily. 60 actuat budesonide 0.16 mg/actuat / formoterol fumarate 0.0045 mg/actuat metered dose inhaler (20 sources)Corticosteroid, beta2-Adrenergic AgonistStart: 45-25-6241eshe 2 puff(s) by inhalation once dailySymbicort 160-4.5 MCG/ACT inhaler Inhale 2 puffs Daily 12/25/2023 ActiveStart: 04-16-3475spbh 2 puff(s) by inhalation in the morningbudesonide-formoteroL (SYMBICORT) 160-4.5 mcg/actuation inhaler Inhale 2 puffs in the morning and 2puffs before bedtime. 12/25/2023 ActiveStart: 12-25-2023 End: 00-08-2130rrdd 1 puff(s) by inhalation every twelve hoursBudesonide- Formoterol 160-4.5 mcg/actuation HFA aerosol inhaler Active 2 PUFF INHALATION Every 12 hours 30.6 December 25, 2023 12:13pmcarvedilol 25 mg oral tablet (8 sources)alpha-Adrenergic Evelio, beta-Adrenergic Blockertake 1 tablet by mouth every twelve hoursCarvedilol 25 MG 1 tablet with food Orally Twice a day Activecephalexin 500 mg oral capsule (4 sources)Cephalosporin AntibacterialStart: 06-23-2024 End: 05-71-2425ajzp 1 capsule by mouth three times dailyCEPHalexin (KEFLEX) 500 mg capsule Take 1 capsule (500 mg total) by mouth 3 (three) times a day. Activedoxycycline hyclate 100 mg oral tablet (2 sources)Tetracycline-class DrugStart: 05-08-2024 End: 62-62-9766ktda 1 tablet by mouth in the morning, then take 1 tablet by mouth at bedtimedoxycycline (VIBRA-TABS) 100 mg tablet Take 1 tablet (100 mg total) by mouth in the morning and 1 tablet (100 mg total) before bedtime. 05/08/2024 05/18/2024 Activefenofibrate 160 mg oral tablet (8 sources)Peroxisome Proliferator Receptor alpha Agonisttake 1 tablet by mouth every twenty-four hoursFenofibrate 160 MG 1 tablet Orally Once a day Active gabapentin 100 mg oral capsule (20 sources)Anti-epileptic AgentStart: 04-16-2023 End: 32-06-3753gfmg 1 capsule by mouth once daily at bedtimegabapentin (NEURONTIN) 100 mg capsule Indications: Paraneoplastic neuropathy (HCC) Take 1 capsule by mouth daily at bedtime for 180 days. 90 capsule 1 05/29/2023 Active Comment on above:Take 1 capsule by mouth daily at bedtime for 60 days.Take 1 capsule by mouth daily at bedtime for 180 days.ibuprofen 200 mg oral capsule (20 sources)Nonsteroidal Anti-inflammatory DrugIbuprofen 200 mg cap Take by mouth every 6 hours as needed. ActiveComment on above:Take by mouth every 6 hours as needed.loratadine 10 mg oral tablet (20 sources)Start: 61-06-1184afsy 1 tablet by mouth once daily as needed Loratadine (Claritin) 10 mg tablet Active 10 MG PO Daily as needed for allergy symptoms December 11, 2023 12:00amloratadine (Claritin Reditabs) 5 MG tablet dispersible dissolvable tablet Take 10 mg by mouth if needed ActiveComment on above:Take 10 mg by mouth as needed.metFORMIN hydrochloride 500 mg oral tablet (20 sources)BiguanideStart: 06-07-2015 End: 14-67-8166wnzPDRDPJ (Glucophage) 500 MG tablet 1 (one) time each day at the same time. 06/07/2015 Active End: 47-04-4933zzme 1 tablet by mouth once daily at dinnermetFORMIN ER (FORTAMET) 500 mg 24 hr tablet Take 500 mg by mouth daily with dinner. 0 03/22/2023 Discontinuedtake 1 tablet by mouth every twelve hoursmetFORMIN HCl 500 MG 1 tablet with meals Orally Twice a day ActiveComment on above:Take 500 mg by mouth once daily.Take 500 mg by mouth daily with dinner.30 actuat mometasone furoate 0.11 mg/actuat dry powder inhaler (20 sources)CorticosteroidStart: 10-24-2023 End: 35-70-4100lbtt 1 puff(s) by inhalation once dailyASMANEX TWISTHALER 110 mcg/ actuation (30) inhaler Inhale 1 puff once daily. 10/24/2023 06/24/2024 D iscontinued (Cost of medication)Start: 07-27-2022 End: 44-02-0911WLYXAAA TWISTHALER 110 mcg/ actuation (30) twisthalerMometasone Furoate (Asmanex HFA) 100 MCG/ACT aerosol Inhale 2 (two) times a day Active Asmanex (30 Metered Doses) 110 MCG/ACT USE 1 TO 2 INHALATIONS DAILY Active Multiple Vitamin (Multi-Vitamin) tablet (20 sources)take 1 tablet by mouth in the morningMultiple Vitamin (Multi- Vitamin) tablet Take 1 tablet by mouth in the morning. Activemultivitamin tablet (20 sources)take 1 tablet by mouth once dailymultivitamin tablet Take 1 tablet by mouth once daily. Activetake 1 tablet by mouth once dailymultivitamin tablet Take 1 tablet by mouth once daily. 0 ActiveComment on above:Take 1 tablet by mouth once daily.zaufzjwvdjja-Rk-irql-minerals tablet (8 sources)take 1 tablet by mouth once vpjfysmtuxnycyney-Yp-gvxt-minerals tablet Take 1 tablet by mouth respiratory nightly. Activetake 1 tablet by mouth in the vupmlwmujdixdtnhkcs-Hk-chpy-minerals tablet Take 1 tablet by mouth in the morning. 0 Activenaproxen 500 mg oral tablet (1 source)Nonsteroidal Anti-inflammatory DrugStart: 47-14-5877unwa 1 tablet by mouth twice daily as needed for painNaproxen 500 mg tablet Active 500 MG PO Twice daily as needed for pain 180 November 11, 2024 12:00amomeprazole 40 mg delayed release oral capsule (20 sources)Proton Pump InhibitorStart: 95-20-1900phwg 1 capsule by mouth in the morningomeprazole (PriLOSEC) 40 mg capsule Take 1 capsule (40 mg total) by mouth in the morning. 30 capsule 1 01/30/2024 ActiveStart: 06-27-2017 End: 92-00-9964ioem 1 tablet by mouth once dailyOmeprazole 20 mg tablet,delayed release (DR/EC) Discontinued 20 MG PO Daily June 26, 2017 11:00pm December 11, 2023 11:16amtake 20 mg by mouth once dailyOMEPRAZOLE (PRILOSEC ORAL) Take 20 mg by mouth once daily. Active End: 79-09-8401icdhznjvdn (PriLOSEC) 20 mg capsule Take 1 capsule (20 mg total) by mouth as needed. 01/30/2024 DiscontinuedComment on above:Take 20 mg by mouth once daily.sertraline 100 mg oral tablet (20 sources)Serotonin Reuptake InhibitorStart: 07-07-2024 End: 20-28-9094tjzj 2 tablets by mouth once dailySertraline 100 mg tablet Active 200 MG PO Daily 180 July 07, 2024 5:10pmStart: 12-11-2023 End: 80-34-8586xjuf 2 tablets by mouth once dailySertraline 100 mg tablet Discontinued 200 MG PO Daily 180 December 12, 2023 10:49am December 12, 2023 9:55pmStart: 12-11-2023 End: 45-43-7671lacb 200 mg by mouth once dailySertraline Discontinued 200 MG PO Daily 180 December 12, 2023 11:49am December 12, 2023 10:55pmStart: 06-07-2016 sertraline (Zoloft) 100 MG tablet every 12 (twelve) hours. 06/07/2016 Activetake 1 tablet by mouth twice dailysertraline (ZOLOFT) 100 mg tablet Take 100 mg by mouth twice daily. Activetake 1 tablet by mouth every twenty-four hoursZoloft 100 MG 1 tablet Orally Once a day for 30 day(s) ActiveSertraline HCl 100 mg TAKE 2 TABLETS DAILY ActiveComment on above:Take 100 mg by mouth twice daily. tadalafil 5 mg oral tablet (1 source)Phosphodiesterase 5 InhibitorStart: 16-28-4277nrty 1 tablet by mouth once dailyTadalafil 5 mg tablet Active 5 MG PO Daily November 11, 2024 12:00am Completed/Discontinued Medications MedicationDrug Class(es)DatesSig (Normalized)Sig (Original)amoxicillin 875 mg / clavulanate 125 mg oral tablet (9 sources)Penicillin-class AntibacterialStart: 03-31-2021 End: 00-04-0998sqgnkrkltbh-clavulanic acid (AUGMENTIN) 875-125 mg per tablet Augmentin Tablets 875 MG (8 sources)Start: 86-41-5651kkfi 1 tablet by mouth every twelve hoursAugmentin Tablets 875 MG 1 bby mouth every 12 hours with probiotics for 10 days Jun, Not-TakingStart: 92-48-1172jhkc 1 tablet by mouth every twelve hours Augmentin Tablets 875 MG 1 bby mouth every 12 hours with probiotics for 10 days Jun, Activebisoprolol fumarate 10 mg / hydroCHLOROthiazide 6.25 mg oral tablet (1 source)Thiazide Diuretic, beta-Adrenergic Evelio End: 79-24-5185fbjm 1 tablet by mouth once dailybisoprolol-hydrochlorothiazide (ZIAC) 10-6.25 mg per tablet Take 1 tablet by mouth once daily. 0 08/15/2021 DiscontinuedComment on above:Take 1 tablet by mouth once daily.Budesonide (20 sources)CorticosteroidStart: 12-11-2023 End: 96-29-9248fpyn 180 ug by inhalation twice dailyBudesonide 180 mcg/actuation aerosol powdr breath activated Discontinued 180 MCG INHALATION Twice daily December 11, 2023 12:00am December 25, 2023 12:10pmStart: 12-11-2023 End: 19-35-3438qvmm 180 ug by inhalation twice dailyBudesonide Discontinued 180 MCG INHALATION Twice daily December 11, 2023 1:00am December 25, 2023 1:10pmStart: 80-93-2789wlhi 1 puff(s) by inhalation twice dailyPulmicort Flexhaler 180 MCG/ACT 1 puff Inhalation Twice a day for 90 days Aug, Activetake 2 mL by inhalation once dailybudesonide (PULMICORT) 0.25 mg/2 mL nebulizer solution Inhale 2 mL (0.25 mg total) by nebulization once daily. Activetake 0.25 mg by inhalation once dailybudesonide (PULMICORT) 0.25 mg/2 mL nebulizer solution Inhale 0.25 mg by nebulization once daily. 0Active End: 80-78-7320nels 2 puff(s) by inhalation twice dailybudesonide (PULMICORT FLEXHALER) 180 mcg/actuation aepb Inhale 2 Puffs as instructed twice daily. 0 03/22/2023 Discontinuedtake 2 puff(s) by inhalation twice dailybudesonide (PULMICORT FLEXHALER) 180 mcg/actuation aepb Inhale 2 Puffs as instructed twice daily. 0ActiveComment on above:Inhale 2 Puffs as instructed twice daily.24 hr buPROPion hydrochloride 150 mg extended release oral tablet (1 source)AminoketoneStart: 01-12-2020 End: 75-57-1439chUJNRzpq XL (WELLBUTRIN XL) 150 mg 24 hr tabletcefuroxime 500 mg oral tablet (10 sources)Cephalosporin AntibacterialStart: 82-43-9088jfyp 1 tablet by mouth every twelve hoursCefuroxime Axetil 500 MG 1 tablet Orally every 12 hrs for 5 day(s) Nov, Not-Takingezetimibe 10 mg oral tablet (1 source)Dietary Cholesterol Absorption InhibitorStart: 06-25-2024 End: 41-75-1939ucyd 1 tablet by mouth once dailyEzetimibe 10 mg tablet Discontinued 10 MG PO Daily June 24, 2024 11:00pm August 29, 2024 2:35pm30 actuat fluticasone furoate 0.05 mg/actuat dry powder inhaler (3 sources)CorticosteroidStart: 12-24-2023 End: 35-85-2913Kcyxyapfuhf Furoate 50 mcg/actuation blister with device Discontinued 1 INH INHALATION Daily December 23, 2023 11:00pm December 25, 2023 12:08pmhydrOXYzine pamoate 25 mg oral capsule (1 source)AntihistamineStart: 06-01-2020 End: 84-75-3000tcecDHDxevi pamoate (VISTARIL) 25 mg capsule TAKE 1-2 capsules THREE TIMES DAILY NEEDED FOR ANXIETY 0 06/01/2020 08/15/2021 Discontinued Comment on above:TAKE 1-2 capsules THREE TIMES DAILY NEEDED FOR ANXIETY meloxicam 7.5 mg oral tablet (13 sources)Nonsteroidal Anti-inflammatory DrugStart: 12-11-2023 End: 06-51-4552ahhn 1 tablet by mouth once dailyMeloxicam 7.5 mg tablet Discontinued 7.5 MG PO Daily December 11, 2023 12:00am August 29, 2024 2:35pm take 1 tablet by mouth every twenty-four hoursMeloxicam 7.5 MG 1 tablet Orally Once a day Activemirtazapine 45 mg oral tablet (1 source) End: 61-55-6487udkw 1 tablet by mouth once daily at bedtimemirtazapine (REMERON) 45 mg tablet Take 45 mg by mouth daily at bedtime. 0 08/15/2021 Discontinued Comment on above:Take 45 mg by mouth daily at bedtime.Mometasone (Asmanex Hfa) 100 mcg/actuation HFA aerosol inhaler (3 sources)Start: 12-11-2023 End: 10-64-0298anbg 1 puff(s) by inhalation twice dailyMometasone (Asmanex Hfa) 100 mcg/actuation HFA aerosol inhaler Discontinued 2 PUFF INHALATION Twicedaily December 11, 2023 12:00am December 25, 2023 12:10pmStart: 12-11-2023 End: 17-07-6289gdbf 1 puff(s) by inhalation twice dailyMometasone (Asmanex Hfa) 100 mcg/actuation HFA aerosol inhaler Discontinued 2 PUFF INHALATION Twicedaily December 11, 2023 1:00am December 25, 2023 1:10pmriTUXimab-pvvr 700 mg in NaCl 0.9% 250 mL (RUXIENCE) (4 sources)Start: 01-07-2025 End: 45-07-0155958 mg (rounded from 735 mg = 375 mg/m2 1.96 m2 Treatment Plan BSA from Recorded weight), INTRAVENOUS, ONCE, 1 dose, On Sun01/07/25 at 1030, EXP: 01/08/2025 1000 RT Total Volume = 250 ml Infuse 50 ml over 30 minutes then 200 ml over 60 minutes. Refrigerate., Medication Substitution: [facility] preferred product has been replaced with the insurance mandated productStart: 11-12-2024 End: 54-86-1941148 mg (rounded from 735 mg = 375 mg/m2 1.96 m2 Treatment Plan BSA from Recorded weight), INTRAVENOUS, ONCE, 1 dose, On Sun11/12/24 at 1000, EXP: 92911/13/24 Total Volume = 250 ml Infuse 50 ml over 30minutes then 200 ml over 60 minutes. Refrigerate., [facility] the insurance mandated productStart: 09-17-2024 End: 20-80-9115918 mg (rounded from 738.75 mg = 375 mg/m2 1.97 m2 Treatment Plan BSA from Recorded weight), INTRAVENOUS, ONCE, 1 dose, On Sun09/17/24 at 1030, EXP: 09/18/2024 0945 RT Total Volume = 250 ml Infuse 50 ml over 30 minutes then 200 ml over 60 minutes. Refrigerate.Start: 09-10-2024 End: 26-74-6458362 mg (rounded from 738.75 mg = 375 mg/m2 1.97 m2 Treatment Plan BSA from Recorded weight), INTRAVENOUS, ONCE, 1 dose, On Sun09/10/24 at 1000, EXP: 09/11/2024 0930 RT Total Volume = 250 ml Infuse 50ml over 30 minutes then 200 ml over 60 minutes. Refrigerate.riTUXimab-pvvr 700 mg in NaCl 0.9% 610 mL (RUXIENCE) (2 sources)Start: 08-27-2024 End: 14-15-9917733 mg (rounded from 738.75 mg = 375 mg/m2 1.97 m2 Treatment Plan BSA from Recorded weight), INTRAVENOUS, ONCE, 1 dose, On Sun08/27/24 at 1030, EXP: 08/28/2024 0945 RT Infuse at rate of 100mg/hr. Ifno hypotension, increase rate every 30 minutes by 100mg/hr to a maximum rate of 400mg/hr. Refrigerate. Start: 08-20-2024 End: 71-38-0637710 mg (rounded from 738.75 mg = 375 mg/m2 1.97 m2 Treatment Plan BSA from Recorded weight), INTRAVENOUS, ONCE, 1 dose, On Sun08/20/24 at 1000, EXP: 08/21/2024 0935 RT Infuse at rate of 50mg/hr. If no hypotension, increase rate every 30 minutes by 50mg/hr to a maximum rate of 400mg/hr. Refrigerate. sildenafil (20 sources)Phosphodiesterase 5 InhibitorStart: 12-12-2023 End: 52-31-6108Bebyzqvvrn 100 mg tablet Discontinued 0 .ROUTE .COMPLEX December 12, 2023 9:55pm November 11, 2024 9:39am TAKE ONE-HALF (1/2) TO ONE TABLET NEEDED FOR ERECTILE DYSFUNCTIONStart: 58-01-1314Ybqtyjsezr Active 0 .ROUTE .COMPLEX December 12, 2023 10:55pm TAKE ONE-HALF (1/2) TO ONE TABLET ASNEEDED FOR ERECTILE DYSFUNCTIONStart: 98-28-1162btcuzfqthk (VIAGRA) 100 mg tablet Take 100 mg by mouth as needed. 04/07/2020 ActiveComment on above:Take 100 mg by mouth as needed.sod sulf-pot chloride-mag sulf 1.479-0.188- 0.225 gram tablet (5 sources)Start: 01-08-2024 End: 64-42-3429azb sulf-pot chloride-mag sulf 1.479-0.188- 0.225 gram tablet Indications: Encounter for colonoscopy due to history of colonic polyp Please see instructional sheet given by physicians office. 24 tablet 01/08/2024 05/13/2024 Discontinued (Therapy completed)Start: 86-22-1258xtm sulf-pot chloride-mag sulf 1.479-0.188- 0.225 gram tablet Indications: Encounter for colonoscopy due to history of colonic polyp Please see instructional sheet given by physicians office. 24 tablet 01/08/2024 ActiveStart: 21-09-8578viq sulf-pot chloride-mag sulf 1.479-0.188- 0.225 gram tablet Indications: Encounter for colonoscopy due to history of colonic polyp Please see instructional sheet given by physicians office. 24 tablet 0 01/08/2024 Activetamsulosin hydrochloride 0.4 mg oral capsule (4 sources)alpha-Adrenergic BlockerStart: 07-24-2024 End: 91-09-2777npqa 1 capsule by mouth once daily at bedtimeTamsulosin 0.4 mg capsule Discontinued 0.4 MG PO Daily at bedtime July 23, 2024 11:00pm November 11, 2024 9:39amtake 1 capsule by mouth once daily at dinnerTamsulosin HCl 0.4 MG 1 capsule Orally Once a day, after evening meal for 30 days Active tiZANidine 4 mg oral tablet (5 sources)Central alpha-2 Adrenergic AgonistStart: 05-21-2024 End: 43-44-9789yoql 0.5-1 tablets by mouth once daily at bedtimeTizanidine 4 mg tablet Discontinued 0 .ROUTE .COMPLEX May 21, 2024 7:56pm August 29, 2024 2:36pm TAKE 1/2 (ONE-HALF) TO 1 (ONE) TABLET BY MOUTH EVERY DAY AT BEDTIME Start: 73-90-1808zskz 0.5-1 tablets by mouth once daily at bedtimeTizanidine Active 0 .ROUTE .COMPLEX May 21, 2024 8:56pm TAKE 1/2 (ONE-HALF) TO 1 (ONE) TABLET BY MOUTH EVERY DAY AT BEDTIMEStart: 05-21-2024 End: 51-93-6442uyaz 1 tablet by mouth once daily at bedtimeTizanidine 4 mg tablet Discontinued 4 MG PO Daily at bedtime 15 May 20, 2024 11:00pm 2023 7:56pm 1/2 - 1 PO q HS24 hr venlafaxine 75 mg extended release oral capsule (1 source)Serotonin and Norepinephrine Reuptake InhibitorStart: 06-01-2020 End: 82-93-6378vkns 1 capsule by mouth once daily in the morningvenlafaxine ER (EFFEXOR XR) 75 mg 24 hr capsule Take 75 mg by mouth every morning. 0 06/01/2020 08/15/2021 DiscontinuedComment on above:Take 75 mg by mouth every morning. Problems Active Problems Problem ClassificationProblemDateDocumented DateEpisodic/ChronicAbdominal pain (1 source)Epigastric pain; Translations: [Epigastric pain]EpisodicAcute bronchitis (12 sources)Acute bronchitis; Translations: [Acute bronchitis]EpisodicAnxiety disorders (3 sources)Anxiety; Translations: [Anxiety disorder, unspecified]12-11-2023 ChronicAsthma (7 sources)Mild intermittent asthma; Translations: [Mild intermittent asthma, uncomplicated]25-14-1063BnxunzoNhyart (1 source)AsthmaOnset: 25-28-7062Xdwhnji dysrhythmias (1 source)Palpitations; Translations: [Palpitations]EpisodicDeficiency and other anemia (1 source)Chronic anemia; Translations: [Anemia in other chronic diseases classified elsewhere]Onset: 72-79-5846ApeqkjaYqdbvmelmq and other anemia (1 source)Anemia due to chronic blood loss; Translations: [Iron deficiency anemia secondary to blood loss (chronic)]Onset: 77-74-4782XbtazzpBugutdprkb and other anemia (3 sources)Iron deficiency anemia; Translations: [Other iron deficiency anemias] EpisodicDeficiency and other anemia (1 source)Anemia; Translations: [Anemia, unspecified]EpisodicDiabetes mellitus with complications (20 sources)Type 2 diabetes mellitus; Translations: [Type 2 diabetes mellitus with diabetic polyneuropathy]Onset: 06-23-9590LzuhwyxCdrqvnsm mellitus with complications (1 source)Diabetes mellitus with complicationsOnset: 05-56-3441Kvkfnapd mellitus without complication (20 sources)Type 2 diabetes mellitus without complication; Translations: [Type 2 diabetes mellitus without complications]Onset: 07-22-2013 Resolved: 648935-12-1798BatahhzKzrmdexkc of lipid metabolism (18 sources)Hyperlipidemia; Translations: [Hyperlipidemia, unspecified]Onset: 53-39-8106ReylxypTpxogqrvcxxppv and diverticulitis (1 source)Diverticulosis of intestine, part unspecified, without perforation or abscess without bleeding; Translations: [Diverticulosis of intestine, part unspecified, without perforation or abscess without bleeding]Onset: 01-28-2024 ChronicEsophageal disorders (14 sources)Gastro-esophageal reflux disease with esophagitis; Translations: [Gastroesophageal reflux disease with esophagitis without hemorrhage]Onset: 488435-73-0175QtmrwwaLswdiginy hypertension (1 source)Essential hypertensionOnset: 02-68-4781Uhvmjausc and duodenitis (1 source)Chronic superficial gastritis without bleeding; Translations: [Chronic superficial gastritis without bleeding]Onset: 35-02-6391PjkvlqdWofosahgimkts symptoms and ill-defined conditions (4 sources)Polyuria; Translations: [Other polyuria]Onset: 47-35-5642Jxyjmuxe Headache; including migraine (1 source)Tension-type headache; Translations: [Tension type headache, unspecified]ChronicHyperplasia of prostate (16 sources)Benign prostatic hypertrophy without outflow obstruction; Translations: [Hypertrophy (benign) of prostate without urinary obstruction and other lower urinary tract symptoms [LUTS]]Onset: 36-75-5310DfpkpocJwulqfbpedapa and screening for infectious disease (1 source)Contact with and (suspected) exposure to other viral communicable diseases; Translations: [Contact with and (suspected) exposure to COVID-19] EpisodicMood disorders (2 sources)Major depressive disorder, single episode, unspecified; Translations: [Major depressive disorder, single episode, unspecified]Onset: 06-28-2017 Neoplasms of unspecified nature or uncertain behavior (4 sources)Monoclonal gammopathy (clinical); Translations: [Monoclonal gammopathy]ChronicNervous system congenital anomalies (20 sources)Encephalocele; Translations: [Encephalocele, unspecified]Onset: 07-27-2016 Resolved: 634331-51-6731LauzcisWlo-Mppgltq`s lymphoma (20 sources)Waldenstrom macroglobulinemia; Translations: [Waldenstrom macroglobulinemia]Onset: 58-48-9407CntxsesLtck wounds of extremities (1 source)Laceration of left hand; Translations: [Laceration without foreign body of left hand, initial encounter]66-02-9483LahqxhdrIltgj acquired deformities (2 sources)Acquired spondylolisthesis; Translations: [Spondylolysis, lumbar region]EpisodicOther aftercare (2 sources)Other fdc (current) drug therapyEpisodicOther and unspecified benign neoplasm (1 source)Polyp of colon; Translations: [Polyp of colon]EpisodicOther and unspecified benign neoplasm (1 source)Benign neoplasm of colon; Translations: [Benign neoplasm of colon, unspecified]EpisodicOther and unspecified benign neoplasm (1 source)Benign neoplasm of descending colon; Translations: [Benign neoplasm of descending colon]EpisodicOther connective tissue disease (1 source)Tear of right rotator cuff; Translations: [Unspecified rotator cuff tear or rupture of right shoulder, not specified as traumatic]EpisodicOther ear and sense organ disorders (1 source)Otitis externa; Translations: [Unspecified otitis externa, unspecified ear]Onset: 73-85-2944LjsmadoKffrp ear and sense organ disorders (1 source)Otorrhea of left ear; Translations: [Otorrhea, left ear]EpisodicOther endocrine disorders (1 source)Testicular hypofunction; Translations: [Testicular hypofunction] ChronicOther gastrointestinal disorders (1 source)H/O: gastrointestinal disease; Translations: [Personal history of other diseases of the digestive system]EpisodicOther hereditary and degenerative nervous system conditions (20 sources)Myoclonus; Translations: [Myoclonus]Onset: 867300-82-7307 ChronicOther lower respiratory disease (20 sources)Snoring; Translations: [Snoring]Onset: 879643-72-8655Sknrwgve Other male genital disorders (2 sources)Impotence of organic origin; Translations: [Erectile dysfunction due to arterial insufficiency]ChronicOther nervous system disorders (1 source)Polyneuropathy; Translations: [Polyneuropathy, unspecified]Chronic Other nervous system disorders (20 sources)Numbness; Translations: [Anesthesia of skin]Onset: 02-13-2024 76-15-0410SvobcsrdErolx non-traumatic joint disorders (1 source)Arthralgia of the lower leg; Translations: [Pain in left knee]Episodic Other non-traumatic joint disorders (1 source)Hip pain; Translations: [Pain in right hip]89-19-1408ZebjovzrAmqfr non-traumatic joint disorders (2 sources)Pain in left hipEpisodicOther nutritional; endocrine; and metabolic disorders (1 source)Obesity; Translations: [Obesity, unspecified]ChronicOther nutritional; endocrine; and metabolic disorders (1 source)Simple obesity ; Translations: [Other obesity due to excess calories] Onset: 76-47-2834AmcpyxtWanir nutritional; endocrine; and metabolic disorders (1 source)Body mass index 30+ - obesity; Translations: [Body mass index 30.0- 30.9, adult]Onset: 19-63-7599GujbcdkQoqoj nutritional; endocrine; and metabolic disorders (1 source)Overweight; Translations: [Overweight]EpisodicOther skin disorders (2 sources)Epidermal cyst; Translations: [Epidermal cyst]Onset: 05-13-2024 EpisodicOther upper respiratory infections (1 source)Acute recurrent maxillary sinusitisEpisodicResidual codes; unclassified (20 sources)Obstructive sleep apnea syndrome; Translations: [Obstructive sleep apnea (adult) (pediatric)]Onset: 556449-03-6099KqnkgxpEwpifoyd codes; unclassified (4 sources)Obstructive sleep apnea (adult) (pediatric); Translations: [Obstructive sleep apnea (adult)(pediatric)]Onset: 959789-22-9048Mabbzxf Residual codes; unclassified (20 sources)Hypersomnia; Translations: [Hypersomnia, unspecified]Onset: 501330-28-6000TgqpambYebonbsv codes; unclassified (5 sources)Localized edema; Translations: [Localized edema]Onset: 09-28-2022 EpisodicResidual codes; unclassified (2 sources)Other specified health status; Translations: [Other specified conditions influencing health status]70-90-8723OlogfmmxLcfw and subcutaneous tissue infections (1 source)Local infection of the skin and subcutaneous tissue, unspecified; Translations: [Local infection ofthe skin and subcutaneous tissue, unspecified] Onset: 74-21-4493NcnwiqvyUpawwli and strains (4 sources)Neck sprain; Translations: [Neck sprain and strain]Onset: 02-25-2015 75-40-8189EpmuwfehPqrvvxywe-related disorders (17 sources)Tobacco user; Translations: [Nicotine dependence, cigarettes, uncomplicated]Onset: 03-57-2052DurwhfyOrvhrvl and intentional self-inflicted injury (3 sources)Suicide attempt ; Translations: [Toxic effect of unspecified substance, intentional self-harm, initial encounter]27-94-9794CorcyyonPsjqgaz on above:Problem List clean-up per request of Phys. EHR CmteUnclassified (3 sources)Abnormal weight loss / R63.4(ICD-10)Onset: 03-88-0066Lryvlihsqibz (1 source)Disease of pancreas, unspecified / K86.9(ICD-10)Onset: 04-23-2018 Unclassified (1 source)Obstructive sleep apnea (adult) (pediatric) / G47.33(ICD-10)Onset: 04-96-4404Ruyudmpnmlbw (1 source)Abnormal findings on diagnostic imaging of body structures / R93.8(ICD-10)Onset: 43-48-9211Iralgmkuqfid (1 source)Nicotine dependence, unspecified, uncomplicated / F17.200(ICD-10) Onset: 22-31-3467Zltwhapnmtbw (1 source)Gastritis, unspecified, with bleeding / K29.71(ICD-10)Onset: 82-50-7447Yovjfqurmlvc (2 sources)Adult failure to thrive / R62.7(ICD-10)Onset: 53-93-0541Ydtbkgrnigwh (1 source)Disease of stomach and duodenum, unspecified / K31.9(ICD-10)Onset: 87-22-2020Wxlrusckdkil (1 source)CystOnset: 27-71-0834Myflbrnyeeib (1 source)Breast MassOnset: 73-44-0073Nllcdwxccwvw (1 source)Colon Cancer ScreeningOnset: 64-29-1044Galclfkyyrwe (1 source)Esophagitis, unspecified without bleeding; Translations: [Esophagitis, unspecified without bleeding]Onset: 79-94-1720Oevvbnduqtsz (1 source)gastroesophageal reflux, history of colon polypsOnset: 01-28-2024 Urinary tract infections (3 sources)Urinary tract infectious disease; Translations: [Urinary tract infection, site not specified]16-41-2906ZqdwogplRirfxoi on above:Problem List clean-up per request of Phys. EHR CmteViral infection (1 source)Disease caused by 2019-nCoV; Translations: [COVID-19] Past or Other Problems Problem ClassificationProblemDateDocumented DateEpisodic/ChronicAbdominal hernia (1 source)Inguinal hernia; Translations: [Unilateral inguinal hernia, without obstruction or gangrene, not specified as recurrent]Onset: 40-88-3630Lvkpjmez Epilepsy; convulsions (1 source)Seizure; Translations: [Other convulsions]Onset: 45-50-4647Nwjfmwhe Esophageal disorders (2 sources)Esophageal disordersEssential hypertension (20 sources)Benign essential hypertension; Translations: [Essential hypertension, benign]Onset: 07-22-2013 Resolved: 54-01-7123TlsjnziEkilzis and fatigue (20 sources)Malaise and fatigue; Translations: [Other malaise and fatigue]Onset: 590718-77-0750VejkwauyLjlh disorders (20 sources)Major depressive disorder, recurrent severe without psychotic features; Translations: [Recurrent major depression]Onset: 07-22-2013 Resolved: 52-31-2308XdgtofaVqhqqzxwd of unspecified nature or uncertain behavior (20 sources)Paraneoplastic neuropathy; 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]Onset: 629742-49-1148SxhitjxiGhjsqqivnmebjp (20 sources)Osteoarthritis of knee; Translations: [Osteoarthritis of knee, unspecified]Onset: 03-18-2024 Resolved: 096529-85-7975SompbxpNuqyy and unspecified benign neoplasm (1 source)Lipoma of skin; Translations: [Lipoma of other skin and subcutaneous tissue]Onset: 21-33-5696YtijmbmfMxgdu and unspecified benign neoplasm (1 source)Lipoma of skin and subcutaneous tissue of trunk; Translations: [Benign lipomatous neoplasm of skin and subcutaneous tissue of trunk]Onset: 09-30-2018 EpisodicOther and unspecified benign neoplasm (1 source)Lipoma (clinical); Translations: [Lipoma of other specified sites] Onset: 62-03-2743SdpvyfcmHwvpq and unspecified benign neoplasm (2 sources)Personal history of colonic polyps; Translations: [Personal history of colonic polyps]Onset: 07-74-8620FgwcdkjvXzrni and unspecified benign neoplasm (1 source)Polyp of colon; Translations: [Polyp of colon]Onset: 01-28-2024 EpisodicOther connective tissue disease (1 source)Muscle pain; Translations: [MYALGIA, UNSPECIFIED SITE]Onset: 33-26-8466IlkuqxedLbkqd connective tissue disease (1 source)Lateral epicondylitis; Translations: [Lateral epicondylitis, left elbow]Onset: 37-92-1648VetbgcleNkbkz connective tissue disease (1 source)Medial epicondylitis; Translations: [Medial epicondylitis, unspecified elbow]Onset: 39-81-7525UkbznwzbTiwfp ear and sense organ disorders (20 sources)Otorrhea; Translations: [Otorrhea, unspecified ear]Onset: 03-18-2024 Resolved: 093967-53-0141AixzqifpBlnoc lower respiratory disease (1 source)Chronic cough; Translations: [Chronic cough]Onset: 88-74-6538Ltcjocus Other nervous system disorders (20 sources)Cerebrospinal fluid leak; Translations: [CSF leak]Onset: 07-27-2016 Resolved: 313231-21-0680PglvsvltRxmqw nervous system disorders (1 source)Tremor; Translations: [Tremor, unspecified]Onset: 09-29-2959Qgtxooww Other nervous system disorders (20 sources)Paresthesia; Translations: [Paresthesia of skin]Onset: 02-13-2024 85-14-9155VynoujfoCbmrs non-traumatic joint disorders (4 sources)Pain in left knee; Translations: [PAIN IN LEFT KNEE]Onset: 06-29-2022 EpisodicOther non-traumatic joint disorders (1 source)Joint pain; Translations: [Pain in unspecified joint]Onset: 08-13-2018 EpisodicOther nutritional; endocrine; and metabolic disorders (2 sources)Abnormal weight loss; Translations: [Abnormal weight loss]Onset: 33-35-0170MvczeevdCyqjt nutritional; endocrine; and metabolic disorders (1 source)Body mass index 25-29 - overweight; Translations: [Body mass index 28.0-28.9, adult]Onset: 70-78-6876CrdznbmkBszux nutritional; endocrine; and metabolic disorders (1 source)Loss of appetite; Translations: [Anorexia]Onset: 41-39-3960Ezffftce Other skin disorders (1 source)Mass of thoracic structure; Translations: [Swelling, mass, or lump in chest]Onset: 43-66-6521AffcrubaCcdni skin disorders (1 source)Epidermoid cyst; Translations: [Epidermal cyst]73-56-0231FyftuvyeYniry skin disorders (1 source)Epidermoid cyst of skin of chest; Translations: [Epidermal cyst] 64-56-3629HeqdlsifDhemmx media and related conditions (20 sources)Otosclerosis; 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]Onset: 02-25-2015 Resolved: 79-17-199645319023-16-2236XptygmmkIuldycbgsf disorders (not diabetes) (2 sources)Disorder of pancreas; Translations: [Other specified disease of pancreas]Onset: 70-65-8881ShmqfotqNxiifchp codes; unclassified (1 source)Tobacco user; Translations: [Tobacco use]Onset: 61-12-3813Yuaseldm Spondylosis; intervertebral disc disorders; other back problems (20 sources)Cervical spondylosis without myelopathy; Translations: [Spondylosis without myelopathy or radiculopathy, cervical region]Onset: 02-12-2017 Resolved: 074521-69-8311PizstzeVmzfcyvomqe; intervertebral disc disorders; other back problems (20 sources)Neck pain; Translations: [Cervicalgia]Onset: 07-08-2013 Resolved: 307165-67-0306YyhnbaqqQeotzjrakeza (13 sources)Abnormal findings on diagnostic imaging of other specified body structures; Translations: [Blood chemistry abnormal]Onset: 38-96-0344Kutthpgr Results Test NameValueInterpretationReference RangeFacilityCNPNon 84-41-0863RNRRMljnar St. Vincent HospitalCNPNon 09-00-0307MCAHKwuxypTwacecmrl Clinic [facility] No Panel Informationon 79-47-9412Qwad up by a level to get him to hopefully where he needs to be so we can get his sleep study end of January before he loses insurance.,NOMS [facility] W Auto Differential panel (Bld)on 13-94-9211Pbkioiwpl (Bld) [#/Vol]0.03 10*3/uLNormal<0.11COhioHealth Hardin Memorial Hospital on above:Order Comment: Specimen Type: BLOOD SPECIMENOrdering Facility: [facility] Address:[address] [place], [place] [address]Fwyatqggc By: #### 19370- 8 ####[facility] LABCLIA [id number] [place], [place] [address]Xlyxffgiw/100 WBC (Bld)0.3 %NormalAshtabula County Medical Center on above:Order Comment: Specimen Type: BLOOD SPECIMENOrdering Facility: [facility] Address:[address] [place], [place] [address]Performed By: #### [id number] ####[facility] LABIA [id number] [place], [place] [address]Ajpdvaplmrnt cell count method Nom (Bld)AutoNormalClevelMercy Health Perrysburg Hospital on above:Order Comment: Specimen Type: BLOOD SPECIMENOrdering Facility: [facility] Address:[address] [place], [place] [address]Performed By: #### 55888-9 ####[facility] LABCLIA [id number] [place], [place] [address]Akzbrephodx (Bld) [#/Vol]0.40 10*3/uLNormal<0.46[facility] on above:Order Comment: Specimen Type: BLOOD SPECIMENOrdering Facility: [facility] Address:[address] [place], [place] [address]Performed By: #### 69912-4 ####[facility] LABIA [id number] [place], [place] [address]Mgllxycimdd/100 WBC (Bld)4.4 %NormalAshtabula County Medical Center on above:Order Comment: Specimen Type: BLOOD SPECIMENOrdering Facility: [facility] Address:[address] [place], [place] [address]Performed By: #### 40056-1 ####[facility] LABCLIA [id number] [place], [place] [address]Fdvxphmobia distribution width (RBC) [Ratio]13.2 %Normal 11.5-15.0[facility] on above:Order Comment: Specimen Type: BLOOD SPECIMENOrdering Facility: [facility] Address:[address] [place], [place] [address]Performed By: #### 80897-3 ####[facility] LABIA [id number] [place] [address] Hematocrit (Bld) [Volume fraction]42.4 %Clocae14.0-51.0[facility] on above:Order Comment: Specimen Type: BLOOD SPECIMENOrdering Facility: [facility] Address:[address] [place], [place] [address]Performed By: #### 78596-6 ####[facility] LABIA [id number] [place], [place] [address]Lsdsehvqeo (Bld) [Mass/Vol]14.7 g/cIXdhnqa35.0-17.0[facility] on above:Order Comment: Specimen Type: BLOOD SPECIMENOrdering Facility: [facility] Address:[address] [place], [place] [address]Performed By: #### 04338-4 ####[facility] LABIA [id number] [place], [place] [address]Imqnklqi granulocytes (Bld) [#/Vol]0.04 10*3/uLNormal <0.10[facility] on above:Order Comment: Specimen Type: BLOOD SPECIMENOrdering Facility: [facility] Address:[address] [place], [place] [address]Performed By: #### 35189-3 ####[facility] LABIA [id number] [place], [place] [address]Wgtbitcu granulocytes/100 WBC (Bld)0.4 %NormalAshtabula County Medical Center on above: Order Comment: Specimen Type: BLOOD SPECIMENOrdering Facility: [facility] Address:[address] [place], [place] [address]Performed By: #### 73218- 8 ####[facility] LABIA [id number] [place], [place] [address]Nmsaiyzlfon (Bld) [#/Vol]0.99 10*3/uLLow1.00-4.00 [facility] on above:Order Comment: Specimen Type: BLOOD SPECIMENOrdering Facility: [facility] Address:[address] [place], [place] [address]Performed By: #### 07390-0 ####[facility] LABCLIA [id number] [place], [place] [address]Lbzdpcjdbev/100 WBC (Bld)10.9 %NormalAshtabula County Medical Center on above:Order Comment: Specimen Type: BLOOD SPECIMENOrdering Facility: [facility] Address:[address] [place], [place] [address]Performed By: #### 73906-2 ####[facility] LABCLIA [id number] [place], [place] [address]CPN (RBC) [Entitic mass]30.6 vqLaovuv67.0-34.0[facility] on above:Order Comment: Specimen Type: BLOOD SPECIMENOrdering Facility: [facility] Address:[address] [place], [place] [address]Performed By: #### 16415-7 ####[facility] LABCLIA [id number] [place], [place] [address]YVGQ (RBC) [Mass/Vol]34.7 g/sMJglbyw20.5-36.0[facility] on above: Order Comment: Specimen Type: BLOOD SPECIMENOrdering Facility: [facility] Address:[address] [place], [place] [address]Performed By: #### 06832- 8 ####[facility] LABCLIA [id number] [place], [place] [address]NVQ (RBC) [Entitic vol]88.3 uGQlslyu81.0-100.0[facility] on above:Order Comment: Specimen Type: BLOOD SPECIMENOrdering Facility: [facility] Address:[address] [place], [place] [address]Performed By: #### 45160-3 ####[facility] LABIA [id number] [place], [place] [address]Phfeqwxnz (Bld) [#/Vol]0.62 10*3/uLNormal<0.87[facility] on above:Order Comment: Specimen Type: BLOOD SPECIMENOrdering Facility: [facility] Address:[address] [place], [place] [address]Performed By: #### 36130- 8 ####[facility] LABCLIA [id number] [place], [place] [address]Drxaellsv/100 WBC (Bld)6.8 %NormalAshtabula County Medical Center on above:Order Comment: Specimen Type: BLOOD SPECIMENOrdering Facility: [facility] Address:[address] [place], [place] [address]Performed By: #### 38483-4 ####[facility] LABCLIA [id number] [place], [place] [address]Wigovqivpgx (Bld) [#/Vol]6.98 10*3/uLNormal1.45-7.50[facility] on above:Order Comment: Specimen Type: BLOOD SPECIMENOrdering Facility: [facility] Address:[address] [place], [place] [address]Performed By: #### 15663-1 ####[facility] LABCLIA [id number] [place], [place] [address]Jnuvibbqnmj/100 WBC (Bld)77.2 %NormalAshtabula County Medical Center on above:Order Comment: Specimen Type: BLOOD SPECIMENOrdering Facility: [facility] Address:[address] [place], [place] [address]Performed By: #### 27880-9 ####[facility] LABIA [id number] [place], [place] [address]Iiqpyxdjz RBC (Bld) [#/Vol] 10*3/uLNormal<0.01[facility] on above:Order Comment: Specimen Type: BLOOD SPECIMENOrdering Facility: [facility] Address:[address] [place], [place] [address]Performed By: #### 86923-1 ####[facility] LABCLIA [id number] [place], [place] [address]Mmpvcdbnn RBC/100 WBC (Bld) [Ratio]0.0 /100 WBCNormal [facility] on above:Order Comment: Specimen Type: BLOOD SPECIMENOrdering Facility: [facility] Address:[address] [place], [place] [address]Performed By: #### 21066-0 ####[facility] LABCLIA [id number] [place], [place] [address]Vqzzcmjx mean volume (Bld) [Entitic vol]9.8 fLNormal9.0-12.7COhioHealth Hardin Memorial Hospital on above:Order Comment: Specimen Type: BLOOD SPECIMENOrdering Facility: [facility] Address:[address] [place] [address] Performed By: #### 89308-8 ####[facility] LABCLIA [id number] [place], [place] [address]Dyhiaowgk (Bld) [#/Vol]260 10*3/mUVekoqt132-424McszwsodiAshtabula County Medical Center on above:Order Comment: Specimen Type: BLOOD SPECIMENOrdering Facility: [facility] Address:[address] [place], [place] [address]Performed By: #### 29151-1 ####[facility] LABCLIA [id number] [place], [place] [address]PPG (Bld) [#/Vol]4.80 10*6/uLNormal4.20-6.00[facility] on above:Order Comment: Specimen Type: BLOOD SPECIMENOrdering Facility: [facility] Address:[address] [place], [place] [address]Performed By: #### 53979-6 ####[facility] LABCLIA [id number] [place], [place] [address]LPF (Bld) [#/Vol]9.06 10*3/uLNormal3.70-11.00[facility] on above: Order Comment: Specimen Type: BLOOD SPECIMENOrdering Facility: [facility] Address:[address] [place], [place] [address]Performed By: #### 12551- 8 ####[facility] LABCLIA [id number] [place], [place] [address]QMILFGjd 55-42-1580SOIBFSHyhsabNudpufwqzFisher-[facility] metabolic 2000 panelon 78-12-9453Dauaiss [Mass/Vol]4.3 g/dLNormal 3.9-4.9COhioHealth Hardin Memorial Hospital on above:Order Comment: Specimen Type: BLOOD SPECIMENOrdering Facility: [facility] Address:[address] [place], [place] [address]Performed By: #### 24445-7 ####[facility] LABCLIA [id number] [place], [place] [address]SVK [Catalytic activity/Vol]104 U/UDirdvy08-999IeejwsjfhAshtabula County Medical Center on above:Order Comment: Specimen Type: BLOOD SPECIMENOrdering Facility: [facility] Address:[address] [place], [place] [address]Performed By: #### 26572-9 ####[facility] LABCLIA [id number] [place], [place] [address]FMI [Catalytic activity/Vol]17 U/TRjuqym29-56AxicupbzfAshtabula County Medical Center on above:Order Comment: Specimen Type: BLOOD SPECIMENOrdering Facility: [facility] Address:[address] [place], [place] [address]Performed By: #### 16540-5 ####[facility] LABIA [id number] [place], [place] [address]Gzldw gap [Moles/Vol]10 mmol/LNormal8-15[facility] on above:Order Comment: Specimen Type: BLOOD SPECIMENOrdering Facility: [facility] Address:[address] [place], [place] [address]Performed By: #### 15201- 8 ####[facility] LABCLIA [id number] [facility] [place], [place] [address]ZUY [Catalytic activity/Vol]14 U/DLozbxm57-40MegzgmebwAshtabula County Medical Center on above:Order Comment: Specimen Type: BLOOD SPECIMENOrdering Facility: [facility] Address:[address] [place], [place] [address]Performed By: #### 93380-6 ####[facility] LABCLIA [id number] [place], [place] [address]Mwvavwmif [Mass/Vol]0.2 mg/dLNormal0.2-1.3COhioHealth Hardin Memorial Hospital on above:Order Comment: Specimen Type: BLOOD SPECIMENOrdering Facility: [facility] Address:[address] [place], [place] [address]Performed By: #### 24709- 8 ####[facility] LABCLIA [id number] [facility] [place], [place] [address]Lxjthck [Mass/Vol]9.4 mg/dLNormal8.5-10.2COhioHealth Hardin Memorial Hospital on above:Order Comment: Specimen Type: BLOOD SPECIMENOrdering Facility: [facility] Address:[address] [place], [place] [address]Performed By: #### 43215-8 ####[facility] LABCLIA [id number] [place], [place] [address]Ksbyqirq [Moles/Vol]106 mmol/L Xqswtc50-792TpmevqxlkAshtabula County Medical Center on above:Order Comment: Specimen Type: BLOOD SPECIMENOrdering Facility: [facility] Address:[address] [place], [place] [address]Performed By: #### 49822-5 ####[facility] LABCLIA [id number] [place] [address] CO2 [Moles/Vol]26 mmol/WQwdxmx20-92XoszbncmqAshtabula County Medical Center on above: Order Comment: Specimen Type: BLOOD SPECIMENOrdering Facility: [facility] Address:[address] [place], [place] [address]Performed By: #### 81648- 8 ####[facility] LABCLIA [id number] [place], [place] [address]Rtprgfrrcx [Mass/Vol]0.88 mg/dLNormal0.73-1.22[facility] on above:Order Comment: Specimen Type: BLOOD SPECIMENOrdering Facility: [facility] Address:[address] [place], [place] [address]Performed By: #### 33347-8 ####[facility] LABCLIA [id number] [place], [place] [address]Tktzwnffly and Glomerular filtration rate.predicted panel (S/P/Bld)98 mL/min/1.73m???Normal>=60 [facility] on above:Order Comment: Specimen Type: BLOOD SPECIMENOrdering Facility: [facility] Address:[address] [place], [place] [address]Result Comment: Estimated Glomerular Filtration Rate (eGFR) is calculated using the 2020 CKD-EPI creatinine equation. This equation utilizes serum creatinine, sex, and age as parameters. The creatinine assay has traceable calibration to isotope dilution-mass spectrometry. Refer to KDIGO guidelines for clinical interpretation. In patients with unstable renal function, e.g. those with acute kidney injury, the eGFR may not accurately reflect actual GFR.Performed By: #### 28451-5 ####[facility] LABCLIA [id number] [place], [place] [address]Ywizfjh [Mass/Vol]140 mg/cPDqww59-40CqqyddduyAshtabula County Medical Center on above:Order Comment: Specimen Type: BLOOD SPECIMENOrdering Facility: [facility] Address:[address] [place], [place] [address]Result Comment: The [place] Diabetes Association (ADA) provides guidance for cutoff values for fast ing glucose and random glucose. The ADA defines fasting as no caloric intake for at least 8 hours. Fasting plasma glucose results between 100 to 125 mg/dL indicate increased risk for diabetes (prediabetes).Fasting plasma glucose results greater than or equal to 126 mg/dL meet the criteria for diagnosis of diabetes. In the absence of unequivocal hyperglycemia, results should be confirmed by repeattesting. In a patient with classic symptoms of hyperglycemia or hyperglycemic crisis, random plasmaglucose results greater than or equal to 200 mg/dL meet the criteria for diagnosis of diabetes.Reference: Standards of Medical Care in Diabetes 2016, [place] [employer] Association. Diabetes Care. 2016.39(Suppl 1).Performed By: #### 99475-0 ####[facility] LABCLIA [id number] [place], [place] [address]Wspnoydtt [Moles/Vol]4.2 mmol/LNormal3.7-5.1COhioHealth Hardin Memorial Hospital on above: Order Comment: Specimen Type: BLOOD SPECIMENOrdering Facility: [facility] Address:[address] [place], [place] [address]Performed By: #### 62147- 8 ####[facility] LABCLIA [id number] [place], [place] [address]Hhfmid [Moles/Vol]142 mmol/FXnhxuz366-903BakwhtvkzAshtabula County Medical Center on above:Order Comment: Specimen Type: BLOOD SPECIMENOrdering Facility: [facility] Address:[address] [place], [place] [address]Performed By: #### 59610-4 ####[facility] LABCLIA [id number] [place], [place] [address]Tcju nitrogen [Mass/Vol]24 mg/dLNormal9-24[facility] on above:Order Comment: Specimen Type: BLOOD SPECIMENOrdering Facility: [facility] Address:[address] [place], [place] [address]Performed By: #### 68126-1 ####[facility] LABCLIA [id number] [place], [place] [address]PYPHLBAYQOVVDY SCREEN, SERUMon 20-33-7845FFCMAPYGNQLVVX (MPA)NormalAshtabula County Medical Center on above:Order Comment: Specimen Type: BLOOD SPECIMENOrdering Facility: [facility] Address:[address] [place], [place] [address]Performed By: #### IFESC ####[facility] LABCLIA [id number] [address] [place] [address] [place] AMERICAMPA RESULTA poorly defined region of restricted mobility is present that may represent an M protein.AbnormalNo M protein is identified. [facility] on above:Order Comment: Specimen Type: BLOOD SPECIMENOrdering Facility: [facility] Address:[address] [place], [place] [address]Performed By: #### IFESC ####[facility] LABIA [id number] [place] [address] [place] OF AMERICASTAFF REVIEW ([facility])Reviewed by Dr. Anjelica De León [facility] on above:Order Comment: Specimen Type: BLOOD SPECIMENOrdering Facility: [facility] Address:[address] [place], [place] [address]Performed By: #### IFESC ####[facility] LABIA [id number] [place] [address] [place] IMMUNOGLOBULINS,IGG,IGA,IGMon 58-43-3627QzU [Mass/Vol]81 mg/sLWdmzhm98-428 [facility] on above:Order Comment: Specimen Type: BLOOD SPECIMENOrdering Facility: [facility] Address:[address] [place], [place] [address]Performed By: #### SERIMM ####[facility] LABIA [id number] [address] [address] [place] OF AMERICAIgG [Mass/Vol]606 mg/cDUcj345-9579GfjkfxskmAshtabula County Medical Center on above:Order Comment: Specimen Type: BLOOD SPECIMENOrdering Facility: [facility] Address:[address] [place], [place] [address]Performed By: #### SERIMM ####[facility] LABCLIA [id number] [place] [address] [place] AMERICAIgM [Mass/Vol]96 mg/dL Azvitk09-513HyjmjbucsAshtabula County Medical Center on above:Order Comment: Specimen Type: BLOOD SPECIMENOrdering Facility: [facility] Address:[address] [place], [place] [address]Performed By: #### SERIMM ####[facility] LABCLIA [id number] [place] [address] [place] AMERICAKAPPA/KING,FREE,SERon 81-83-0476Kkzdacwcawcbvt light chains.kappa.free (S) [Mass/Vol]14.1 mg/LNormal3.3-19.4COhioHealth Hardin Memorial Hospital on above:Order Comment: Specimen Type: BLOOD SPECIMENOrdering Facility: [facility] Address:[address] [place], [place] [address]Result Comment: Rarely, increased serum free light chains levels may not be detected or accurately quantified due to prozone phenomenon or in high viscosity samples using this immunoturbidimetric assay. Correlation with other laboratory results and clinical findings is recommended.The [place] Free Light Chain was performed using the Binding Site Optilite immunoturbidimetric method. Result obtained with different assay methods or kits cannot be used interchangeably.Performed By: #### KLFRS ####[facility] LABIA [id number] [facility] S91[place] [address] [place] AMERICAImmunoglobulin light chains.kappa/Immunoglobulin light chains.lambda (S) [Mass ratio]1.13Hhog7.26-1.65[facility] on above:Order Comment: Specimen Type: BLOOD SPECIMENOrdering Facility: [facility] Address:[address] [place], [place] [address]Performed By: #### KLFRS ####[facility] LABIA [id number] [facility] [address] [address] [place] AMERICAImmunoglobulin light chains.lambda.free [Mass/Vol]8.2 mg/LNormal5.7-26.3CUniversity [facility]als [facility] Comment on above:Order Comment: Specimen Type: BLOOD SPECIMENOrdering Facility: [facility] Address:[address] [place], [place] [address]Result Comment: Rarely, increased serum free light chains levels may not be detected or accurately quantified due to prozone phenomenon or in high viscosity samples using this immunoturbidimetric assay. Correlation with other laboratory results and clinical findings is recommended.The [place] Free Light Chain was performed using the Binding Site Optilite immunoturbidimetric method. Result obtainedwith different assay methods or kits cannot be used interchangeably.Performed By: #### KLFRS ####[facility] [id number] [address] OF THE JEWISH HOSPITALPROTEIN ELECTROPHORESIS SERUM (P)on 87-73-7001Hvzrrkj [Mass/Vol]4.27 g/dLNormal3.43-5.41 [facility] HospitalComment on above:Order Comment: Specimen Type: BLOOD SPECIMENOrdering Facility: [facility] Address:[address] [place], [place] [address]Performed By: #### [id number] ####[facility] [id number] [address] STATES OF THE JEWISH HOSPITALAlpha 1 globulin Elph [Mass/Vol]0.33 g/dLNormal0.18-0.43St. [facility] HospitalComment on above:Order Comment: Specimen Type: BLOOD SPECIMENOrdering Facility: [facility] Address:[address] [place], [place] [address]Performed By: #### [id number] ####[facility] [id number] [address] [place] Alpha 2 globulin Elph [Mass/Vol]0.72 g/dLNormal0.42-0.98[facility] on above:Order Comment: Specimen Type: BLOOD SPECIMENOrdering Facility: [facility] Address:[address] [place], [place] [address]Performed By: #### [id number] ####[facility] LABCLIA [id number] [place] [id number] [place] Beta globulin Elph [Mass/Vol]0.76 g/dLNormal0.61-1.17[facility] Comment on above:Order Comment: Specimen Type: BLOOD SPECIMENOrdering Facility: [facility] Address:[address] [place] [address] Performed By: #### [id number] ####[facility] LABCLIA [id number] [place] [address] [place] Gamma globulin Elph [Mass/Vol]0.52 g/dLLow0.53-1.51[facility] Comment on above:Order Comment: Specimen Type: BLOOD SPECIMENOrdering Facility: [facility] Address:[address] [place] [address] Performed By: #### [id number] ####[facility] LABCLIA [id number] [place] [address] [place] INTERPRETATION COMMENT FOR PROTEIN ELECTROPHORESISNoalCOhioHealth Hardin Memorial Hospital on above:Order Comment: Specimen Type: BLOOD SPECIMENOrdering Facility: [facility] Address:[address] [place], [place] [address]Performed By: #### [id number] ####[facility] LABIA [id number] [place] [address] [place] M-PROTEIN LOCATIONNoCleveland Clinic Children's [facility] for [facility] on above:Order Comment: Specimen Type: BLOOD SPECIMENOrdering Facility: [facility] Address:[address] [place], [place] [address]Result Comment: Not Applicable.Performed By: #### [id number] ####[facility] LABCLIA [id number] [place] [id number] [place] Protein Fractions [Interp]An atypical region of restricted mobility is identified on protein electrophoresis.AbnormalNo definitive M protein is identified on protein electrophoresis.[facility] on above:Order Comment: Specimen Type: BLOOD SPECIMENOrdering Facility: [facility] Address:[address] [place], [place] [address]Performed By: #### [id number] ####[facility] LABCLIA [id number] [place] [address] [place] AMERICAProtein.monoclonal Elph [Mass/Vol]0.00 g/dLNormal<=0.00[facility] on above: Order Comment: Specimen Type: BLOOD SPECIMENOrdering Facility: [facility] Address:[address] [place], [place] [address]Performed By: #### [id number] ####[facility] LABCLIA [id number] [address] AMERICASPE STAFF REVIEW Reviewed by Yajaira Cano M.D.NormalAshtabula County Medical Center on above: Order Comment: Specimen Type: BLOOD SPECIMENOrdering Facility: [facility] Address:[address] [place], [place] [address]Performed By: #### [id number] ####[facility] LABCLIA [id number] [place] [address] [place] AMERICAProt SerPl-mCncon 65-33-8416Mraodmq [Mass/Vol]6.6 g/dLNormal6.3-8.0[facility] Comment on above:Order Comment: Specimen Type: BLOOD SPECIMENOrdering Facility: [facility] Address:[address] [place] [address] Performed By: #### 2885-2 ####[facility] LABCLIA [id number] [place] [address] [place] Performed By: #### 40006-0 ####[facility] LABCLIA [id number] [place], [place] [address]KXITdj 48-61-5565PUJZQzncoc St. Vincent HospitalB2 Microglob SerPl-mCncon 11-12-2024 Fnpm-1-Lpvizjbsnepdf [Mass/Vol]1.7 ug/mLNormal<3.1ClevelCritical access hospital Comment on above:Order Comment: Specimen Type: BLOOD SPECIMENOrdering Facility: [facility] Address:[address] [place], [place] [address]Result Comment: Beta-2 Microglobulin test is performed using the [employer] immunoturbidimetric method. Results obtained with different methods or kits cannot be used interchangeably.Performed By: #### 2885-2, 1951-10 ####[facility] LABCLIA [id number] [facility] [id number] [place] [address] W Auto Differential panel (Bld)on 11-12-2024 Basophils (Bld) [#/Vol]0.05 10*3/uLNormal<0.11ClevelCritical access hospitalComment on above:Order Comment: Specimen Type: BLOOD SPECIMENOrdering Facility: [facility] Address:[address] [place] [address] Performed By: #### 43200-4 ####[facility] LABCLIA [id number] [place], [place] [address]Qwejvdryh/100 WBC (Bld)0.7 % NormalSt. Vincent HospitalComment on above:Order Comment: Specimen Type: BLOOD SPECIMENOrdering Facility: [facility] Address:[address] [place], [place] [address]Performed By: #### 00146-2 ####[facility] LABCLIA [id number] [place] [address] Differential cell count method Nom (Bld)AutoNormalCUniversity Hospitals [facility] Comment on above:Order Comment: Specimen Type: BLOOD SPECIMENOrdering Facility: [facility] Address:[address] [place] [address] Performed By: #### 39294-4 ####[facility] LABIA [id number] [place], [place] [address]Daraavgkulj (Bld) [#/Vol]0.43 10*3/uLNormal<0.46[facility] on above:Order Comment: Specimen Type: BLOOD SPECIMENOrdering Facility: [facility] Address:[address] [place], [place] [address]Performed By: #### 82127-4 ####[facility] LABCLIA [id number] [place], [place] [address]Vuqrsztieiw/100 WBC (Bld)5.9 %NormalAshtabula County Medical Center on above:Order Comment: Specimen Type: BLOOD SPECIMENOrdering Facility: [facility] Address:[address] [place], [place] [address]Performed By: #### 31203-4 ####[facility] LABIA [id number] [place], [place] [address]Egkdwbrufrp distribution width (RBC) [Ratio]13.2 %Aonmlt30.5-15.0[facility] on above: Order Comment: Specimen Type: BLOOD SPECIMENOrdering Facility: [facility] Address:[address] [place], [place] [address]Performed By: #### 88263- 8 ####[facility] LABIA [id number] [place], [place] [address]Ofgncsvihp (Bld) [Volume fraction]39.8 %Efczli97.0-51.0 [facility] on above:Order Comment: Specimen Type: BLOOD SPECIMENOrdering Facility: [facility] Address:[address] [place], [place] [address]Performed By: #### 24692-9 ####[facility] LABIA [id number] [place], [place] [address]Nekpdprezm (Bld) [Mass/Vol]13.9 g/gDCkjqzg37.0-17.0[facility] on above: Order Comment: Specimen Type: BLOOD SPECIMENOrdering Facility: [facility] Address:[address] [place], [place] [address]Performed By: #### 79363- 8 ####[facility] LABCLIA [id number] [place], [place] [address]Hfiagjdo granulocytes (Bld) [#/Vol]10*3/uLNormal<0.10 [facility] on above:Order Comment: Specimen Type: BLOOD SPECIMENOrdering Facility: [facility] Address:[address] [place], [place] [address]Performed By: #### 55034-6 ####[facility] LABCLIA [id number] [place], [place] [address]Xgvxxhnf granulocytes/100 WBC (Bld)0.3 %NormalAshtabula County Medical Center on above: Order Comment: Specimen Type: BLOOD SPECIMENOrdering Facility: [facility] Address:[address] [place], [place] [address]Performed By: #### 83869- 8 ####[facility] LABCLIA [id number] [place], [place] [address]Epampoitysh (Bld) [#/Vol]1.01 10*3/uLNormal1.00-4.00 [facility] on above:Order Comment: Specimen Type: BLOOD SPECIMENOrdering Facility: [facility] Address:[address] [place], [place] [address]Performed By: #### 43958-8 ####[facility] LABIA [id number] [place], [place] [address]Qotwevdzier/100 WBC (Bld)13.7 %NormalAshtabula County Medical Center on above:Order Comment: Specimen Type: BLOOD SPECIMENOrdering Facility: [facility] Address:[address] [place], [place] [address]Performed By: #### 63091-5 ####[facility] LABIA [id number] [place], [place] [address]HEE (RBC) [Entitic mass]30.5 caRbdrwc60.0-34.0[facility] on above:Order Comment: Specimen Type: BLOOD SPECIMENOrdering Facility: [facility] Address:[address] [place], [place] [address]Performed By: #### 14121-3 ####[facility] LABCLIA [id number] [place], [place] [address]FBJA (RBC) [Mass/Vol]34.9 g/sGGsnhhq53.5-36.0[facility] on above: Order Comment: Specimen Type: BLOOD SPECIMENOrdering Facility: [facility] Address:[address] [place], [place] [address]Performed By: #### 33432- 8 ####[facility] LABCLIA [id number] [place], [place] [address]XVB (RBC) [Entitic vol]87.3 aIWofxhi27.0-100.0[facility] on above:Order Comment: Specimen Type: BLOOD SPECIMENOrdering Facility: [facility] Address:[address] [place], [place] [address]Performed By: #### 27477-6 ####[facility] LABIA [id number] [place], [place] [address]Daqoloujn (Bld) [#/Vol]0.60 10*3/uLNormal<0.87[facility] on above:Order Comment: Specimen Type: BLOOD SPECIMENOrdering Facility: [facility] Address:[address] [place], [place] [address]Performed By: #### 85527- 8 ####[facility] LABCLIA [id number] [place], [place] [address]Lbkuioato/100 WBC (Bld)8.2 %NormalAshtabula County Medical Center on above:Order Comment: Specimen Type: BLOOD SPECIMENOrdering Facility: [facility] Address:[address] [place], [place] [address]Performed By: #### 85451-9 ####[facility] LABCLIA [id number] [place], [place] [address]Zrjszepzwzs (Bld) [#/Vol]5.24 10*3/uLNormal1.45-7.50[facility] on above:Order Comment: Specimen Type: BLOOD SPECIMENOrdering Facility: [facility] Address:[address] [place], [place] [address]Performed By: #### 70336-2 ####[facility] LABCLIA [id number] [place], [place] [address]Hxcqxsqnkau/100 WBC (Bld)71.2 %NormalAshtabula County Medical Center on above:Order Comment: Specimen Type: BLOOD SPECIMENOrdering Facility: [facility] Address:[address] [place], [place] [address]Performed By: #### 46660-8 ####[facility] LABIA [id number] [place], [place] [address]Gpyzeisvw RBC (Bld) [#/Vol] 10*3/uLNormal<0.01[facility] on above:Order Comment: Specimen Type: BLOOD SPECIMENOrdering Facility: [facility] Address:[address] [place], [place] [address]Performed By: #### 83314-4 ####[facility] LABCLIA [id number] [place], [place] [address]Famtegbpc RBC/100 WBC (Bld) [Ratio]0.0 /100 WBCNormal [facility] on above:Order Comment: Specimen Type: BLOOD SPECIMENOrdering Facility: [facility] Address:[address] [place], [place] [address]Performed By: #### [id number] ####[facility] LABIA [id number] [place], [place] [address]Ntyzbcii mean volume (Bld) [Entitic vol]9.7 fLNormal9.0-12.7COhio[facility] on above:Order Comment: Specimen Type: BLOOD SPECIMENOrdering Facility: [facility] Address:[address] [place] [address] Performed By: #### 20918-2 ####[facility] LABCLIA [id number] [place], [place] [address]Hlwtvdcli (Bld) [#/Vol]244 10*3/hMJcalpj151-417SiecgyvwnAshtabula County Medical Center on above:Order Comment: Specimen Type: BLOOD SPECIMENOrdering Facility: [facility] Address:[address] [place], [place] [address]Performed By: #### 07596-5 ####[facility] LABCLIA [id number] [place], [place] [address]OHQ (Bld) [#/Vol]4.56 10*6/uLNormal4.20-6.00[facility] on above:Order Comment: Specimen Type: BLOOD SPECIMENOrdering Facility: [facility] Address:[address] [place], [place] [address]Performed By: #### 52311-3 ####[facility] LABCLIA [id number] [place], [place] [address]EFI (Bld) [#/Vol]7.35 10*3/uLNormal3.70-11.00[facility] on above: Order Comment: Specimen Type: BLOOD SPECIMENOrdering Facility: [facility] Address:[address] [place], [place] [address]Performed By: #### 88669- 8 ####[facility] LABCLIA [id number] [place], [place] [address]UJRIMGnr 01-29-4885JQDFTXUwvdvhJiswagggrFisher-[facility] metabolic 2000 panelon 03-85-5073Isnjovq [Mass/Vol]4.3 g/dLNormal 3.9-4.9COhioHealth Hardin Memorial Hospital on above:Order Comment: Specimen Type: BLOOD SPECIMENOrdering Facility: [facility] Address:[address] [place], [place] [address]Performed By: #### 55694-0, 308- ####[facility]ENTERMANJUL[facility] LABCLIA [id number] [facility] [place] JORGE ALBERTOSOUTHEASTERN ARIZONA BEHAVIORAL HEALTH SERVICESASHL[place] [address]OQB [Catalytic activity/Vol]93 U/APlnlwz12-488WklujtpbgSt. Vincent Hospital Comment on above:Order Comment: Specimen Type: BLOOD SPECIMENOrdering Facility: [facility] Address:[address] [place], [place] [address] Performed By: #### 11342-0, 308- ####[facility] LABCLIA [id number] [facility] J[facility] ALBERTOVETERANS AFF[facility], [place] [address]QDZ [Catalytic activity/Vol]13 U/UJohvia12-37PlrozooovAshtabula County Medical Center on above:Order Comment: Specimen Type: BLOOD SPECIMENOrdering Facility: [facility] Address:[address] [place], [place] [address]Performed By: #### 35889-1, 3083- ####[facility] LABCLIA [id number] [facility]SEMART[facility] JORGE ALBERTOSOUTHEASTERN ARIZONA BEHAVIORAL HEALTH SERVICESASHLY, [place] [address]Vuwev gap [Moles/Vol]11 mmol/LNormal8-15[facility] on above:Order Comment: Specimen Type: BLOOD SPECIMENOrdering Facility: [facility] Address:[address] [place], [place] [address] Performed By: #### 63624-9, 3083- ####[facility]ENTERMANJUL[facility] LABCLIA [id number] [facility] J[facility]ERTOVETERANS AFF[facility], [place] [address]OUJ [Catalytic activity/Vol] 11 U/MAnx54-44ScnaymtinAshtabula County Medical Center on above:Order Comment: Specimen Type: BLOOD SPECIMENOrdering Facility: [facility] Address:[address] [place], [place] [address]Performed By: #### 80647-2, 308- ####[facility] LABCLIA [id number] [place], [place] [address]Fvrxfelcn [Mass/Vol]0.2 mg/dLNormal0.2-1.3COhioHealth Hardin Memorial Hospital on above:Order Comment: Specimen Type: BLOOD SPECIMENOrdering Facility: [facility] Address:[address] [place] [address] Performed By: #### 21395-5, 3084-1 ####[facility] LABCLIA [id number] [place], [place] [address]Hljdfjl [Mass/Vol]9.5 mg/dL Normal8.5-10.2COhioHealth Hardin Memorial Hospital on above:Order Comment: Specimen Type: BLOOD SPECIMENOrdering Facility: [facility] Address:[address] [place], [place] [address]Performed By: #### 80666-6, 3084-1 ####[facility] LABCLIA [id number] [place], [place] [address]Zydpfndw [Moles/Vol]104 mmol/ROwfiey80-423PrktsswnjAshtabula County Medical Center on above:Order Comment: Specimen Type: BLOOD SPECIMENOrdering Facility: [facility] Address:[address] [place], [place] [address]Performed By: #### 33678-7, 3084-1 ####[facility] LABCLIA [id number] [place], [place] [address]EY8 [Moles/Vol]25 mmol/GEaaebb81-20RdjaylncsAshtabula County Medical Center on above:Order Comment: Specimen Type: BLOOD SPECIMENOrdering Facility: [facility] Address:[address] [place], [place] [address]Performed By: #### 66018- 8, 3084-1 ####[facility] LABCLIA [id number] [place], [place] [address]Tmoccuwnep [Mass/Vol]0.92 mg/dLNormal0.73-1.22 [facility] on above:Order Comment: Specimen Type: BLOOD SPECIMENOrdering Facility: [facility] Address:[address] [place] [address]Thbjrmttn By: #### 15227-0, 1 ####[facility] LABCLIA [id number] [place] [address] Creatinine and Glomerular filtration rate.predicted panel (S/P/Bld)95 mL/min/1.73m???Normal>=60[facility] on above:Order Comment: Specimen Type: BLOOD SPECIMENOrdering Facility: [facility] Address:[address] [place] [address]Xngqna Comment: Estimated Glomerular Filtration Rate (eGFR) is calculated using the 2020 CKD-EPI cre atinine equation. This equation utilizes serum creatinine, sex, and age as parameters. The creatinine assay has traceable calibration to isotope dilution- mass spectrometry. Refer to KDIGO guidelines for clinical interpretation. In patients with unstable renal function, e.g. those with acute kidney injury, the eGFR may not accurately reflect actual GFR.Performed By: #### 30970-8, 3083-10 ####[facility] LABCLIA [id number] [place], [place] [address]Tlimsqe [Mass/Vol]131 mg/gGMgxp19-03UocgnscxlAshtabula County Medical Center on above:Order Comment: Specimen Type: BLOOD SPECIMENOrdering Facility: [facility] Address:[address] [place] [address]Tndzqf Comment: The [place] Diabetes Association (ADA) provides guidance for cutoff values for fasting glucose and random glucose. The ADA defines fasting as no caloric intake for at least 8 hours. Fasting plasma glucose results between 100 to 125 mg/dL indicate increased risk for diabetes (prediab etes).Fasting plasma glucose results greater than or equal to 126 mg/dL meet the criteria for diagnosis of diabetes. In the absence of unequivocal hyperglycemia, results should be confirmed by repeattesting. In a patient with classic symptoms of hyperglycemia or hyperglycemic crisis, random plasmaglucose results greater than or equal to 200 mg/dL meet the criteria for diagnosis of diabetes.Reference: Standards of Medical Care in Diabetes 2016, [place] [employer] Association. Diabetes Care. 2016.39(Suppl 1).Performed By: #### 59014- 8, 308-1 ####[facility] LABCLIA [id number] [place], [place] [address]Khxohzeqr [Moles/Vol]4.1 mmol/LNormal3.7-5.1 [facility] on above:Order Comment: Specimen Type: BLOOD SPECIMENOrdering Facility: [facility] Address:[address] [place], [place] [address]Performed By: #### 00034-6, 3083- ####[facility] LABCLIA [id number] [place], [place] [address]Kuufkat [Mass/Vol]6.7 g/dLNormal6.3-8.0[facility] on above:Order Comment: Specimen Type: BLOOD SPECIMENOrdering Facility: [facility] Address:[address] [place], [place] [address]Performed By: #### 66728- 8, 3083-10 ####[facility] LABCLIA [id number] [place], [place] [address]Kyobsc [Moles/Vol]140 mmol/AHmhxxk105-719TfhdzentlAshtabula County Medical Center on above:Order Comment: Specimen Type: BLOOD SPECIMENOrdering Facility: [facility] Address:[address] [place], [place] [address]Performed By: #### 65342-3, 3083-10 ####[facility] LABCLIA [id number] [place], [place] [address]Engw nitrogen [Mass/Vol]26 mg/dLHigh9-24[facility] on above: Order Comment: Specimen Type: BLOOD SPECIMENOrdering Facility: [facility] Address:[address] [place], [place] [address]Performed By: #### 71569- 8, 308- ####[facility] LABCLIA [id number] [place], [place] [address]ASYAHBRPZTSUMO SCREEN, SERUMon 11-12-2024 INTERPRETATION ([facility])Atypical restricted bands are present in the IgM and kappa regions. Consistent with IgM kappa monoclonal gammopathy.NormalAshtabula County Medical Center on above:Order Comment: Specimen Type: BLOOD SPECIMENOrdering Facility: [facility] Address:[address] [place], [place] [address]Performed By: #### IFESC ####[facility] LABCLIA [id number] [place] [address] [place] MPA RESULTM protein is present.AbnormalNo M protein is identified.[facility] on above:Order Comment: Specimen Type: BLOOD SPECIMENOrdering Facility: [facility] Address:[address] [place], [place] [address]Performed By: #### IFESC ####[facility] LABCLIA [id number] SALAS STREETSTAFF REVIEW ([facility])Reviewed by Dr. Anjelica De León MDrmalCOhioHealth Hardin Memorial Hospital on above:Order Comment: Specimen Type: BLOOD SPECIMENOrdering Facility: [facility] Address:[address] [place], [place] [address]Performed By: #### IFESC ####[facility] LABCLIA [id number] [place] [address] [place] IMMUNOGLOBULINS,IGG,IGA,IGMon 92-34-0089OoP [Mass/Vol]79 mg/kXOwryow51-878 [facility] on above:Order Comment: Specimen Type: BLOOD SPECIMENOrdering Facility: [facility] Address:[address] [place], [place] [address]Performed By: #### SERIMM ####[facility] LABCLIA [id number] [place] [id number] [place] THE JEWISH HOSPITALIgG [Mass/Vol]574 mg/sUTpr384-1086NflmpumplAshtabula County Medical Center on above:Order Comment: Specimen Type: BLOOD SPECIMENOrdering Facility: [facility] Address:[address] [place], [place] [address]Performed By: #### SERIMM ####[facility] LABCLIA [id number] [place] [address] [place] AMERICAIgM [Mass/Vol]97 mg/dL Shwruc38-000UbzvpbgamAshtabula County Medical Center on above:Order Comment: Specimen Type: BLOOD SPECIMENOrdering Facility: [facility] Address:[address] [place], [place] [address]Performed By: #### SERIMM ####[facility] LABCLIA [id number] [place] [address] [place] AMERICAKAPPA/KING,FREE,SERon 51-58-7552Dcvieujzeghvnr light chains.kappa.free (S) [Mass/Vol]16.2 mg/LNormal3.3-19.4COhioHealth Hardin Memorial Hospital on above:Order Comment: Specimen Type: BLOOD SPECIMENOrdering Facility: [facility] Address:[address] [place], [place] [address]Result Comment: Rarely, increased serum free light chains levels may not be detected or accurately quantified due to prozone phenomenon or in high viscosity samples using this immunoturbidimetric assay. Correlation with other laboratory results and clinical findings is recommended.The [place] Free Light Chain was performed using the Binding Site Optilite immunoturbidimetric method. Result obtained with different assay methods or kits cannot be used interchangeably.Performed By: #### KLFRS ####[facility] LABIA [id number] [place] [address] [place] AMERICAImmunoglobulin light chains.kappa/Immunoglobulin light chains.lambda (S) [Mass ratio]1.69Ylwjfb9.26-1.65[facility] on above:Order Comment: Specimen Type: BLOOD SPECIMENOrdering Facility: [facility] Address:[address] [place], [place] [address]Performed By: #### KLFRS ####[facility] LABCLIA [id number] [address] [address] [place] AMERICAImmunoglobulin light chains.lambda.free [Mass/Vol]10.3 mg/LNormal5.7-26.3CUniversity [facility]als [facility] Comment on above:Order Comment: Specimen Type: BLOOD SPECIMENOrdering Facility: [facility] Address:[address] [place], [place] [address]Result Comment: Rarely, increased serum free light chains levels may not be detected or accurately quantified due to prozone phenomenon or in high viscosity samples using this immunoturbidimetric assay. Correlation with other laboratory results and clinical findings is recommended.The [place] Free Light Chain was performed using the Binding Site Optilite immunoturbidimetric method. Result obtainedwith different assay methods or kits cannot be used interchangeably.Performed By: #### KLFRS ####[facility] LABCLIA [id number] [address]REETo Panel Informationon 17-55-5810Wsniaoehzaqwl B Settings: 3.2 with range 3.0-4.0NOMS HealthcareNOMS HealthcarePROTEIN ELECTROPHORESIS SERUM (P)on 25-94-2754Dmrtqzw [Mass/Vol]4.38 g/dLNormal3.43-5.41 [facility] [facility] HospitalComment on above:Order Comment: Specimen Type: BLOOD SPECIMENOrdering Facility: [facility] Address:[address] [place], [place] [address]Performed By: #### [id number] ####[facility] LABCLIA [id number] [place] [address] [place] AMERICAAlpha 1 globulin Elph [Mass/Vol]0.34 g/dLNormal0.18-0.43St. Vincent HospitalComment on above:Order Comment: Specimen Type: BLOOD SPECIMENOrdering Facility: [facility] Address:[address] [place], [place] [address]Performed By: #### [id number] ####[facility] LABCLIA [id number] [place] [address] [place] Alpha 2 globulin Elph [Mass/Vol]0.69 g/dLNormal0.42-0.98St. [facility] HospitalComment on above:Order Comment: Specimen Type: BLOOD SPECIMENOrdering Facility: [facility] Address:[address] [place], [place] [address]Performed By: #### [id number] ####[facility] LABCLIA [id number] [place] [address] [place] Beta globulin Elph [Mass/Vol]0.76 g/dLNormal0.61-1.17[facility] Comment on above:Order Comment: Specimen Type: BLOOD SPECIMENOrdering Facility: [facility] Address:[address] [place] [address] Performed By: #### [id number] ####[facility] LABIA [id number] [place] [address] [place] Gamma globulin Elph [Mass/Vol]0.54 g/dLNormal0.53-1.51[facility] Comment on above:Order Comment: Specimen Type: BLOOD SPECIMENOrdering Facility: [facility] Address:[address] [place] [address] Performed By: #### [id number] ####[facility] LABIA [id number] [place] [address] [place] M-PROTEIN LOCATIONNormalCOhioHealth Hardin Memorial Hospital on above:Order Comment: Specimen Type: BLOOD SPECIMENOrdering Facility: [facility] Address:[address] [place], [place] [address]Result Comment: Not Applicable.Performed By: #### [id number] ####[facility] LABIA [id number] [place] [address] [place] Protein Fractions [Interp]No definitive M protein is identified on protein electrophoresis.NormalNo definitive M protein is identified on protein electrophoresis.St. Vincent HospitalCommymichigan medical center saginaw on above:Order Comment: Specimen Type: BLOOD SPECIMENOrdering Facility: [facility] Address:[address] [place], [place] [address]Performed By: #### [id number] ####[facility] LABCLIA [id number] [place] [address] [place] AMERICAProtein.monoclonal Elph [Mass/Vol]0.00 g/dLNormal<=0.00[facility] on above:Order Comment: Specimen Type: BLOOD SPECIMENOrdering Facility: [facility] Address:[address] [place], [place] [address]Performed By: #### [id number] ####[facility] LABCLIA [id number] [address] STATES [facility] WOMEN'[facility] HOSPITALSPE STAFF REVIEW Reviewed by Dr. Anjelica De León MDNormalCOhioHealth Hardin Memorial Hospital on above:Order Comment: Specimen Type: BLOOD SPECIMENOrdering Facility: [facility] Address:[address] [place], [place] [address]Performed By: #### [id number] ####[facility] LABCLIA [id number] [place] [address] [place] AMERICAProt SerPl-mCncon 42-75-7269Oyomgpx [Mass/Vol]6.4 g/dLNormal6.3-8.0[facility] Comment on above:Order Comment: Specimen Type: BLOOD SPECIMENOrdering Facility: [facility] Address:[address] [place] [address] Performed By: #### 2885-2, 1951-10 ####[facility] LABIA [id number] [place] [address] [place] Urate SerPl-mCncon 72-49-5548Okcwh [Mass/Vol]4.5 mg/dLNormal4.0-8.1COhioHealth Hardin Memorial Hospital on above:Order Comment: Specimen Type: BLOOD SPECIMENOrdering Facility: [facility] Address:[address] [place], [place] [address]Performed By: #### 63012-3, 3084-1 ####[facility] LABCLIA [id number] [place], [place] [address]ABVBtj 84-11-5516BBUZNdccizVgqegundz Clinic ClevelandBasophils Auto (Bld) [#/Vol]on 23-03-3418Rmtewqsqf (Bld) [#/Vol]Automated basophil count<0.11[facility], AvonBasophils/100 WBC Auto (Bld)on 17-19-1755Ojcriazzz/100 WBC (Bld) Automated basophil %[facility], AvonBlood manual differential comment interpretation narrativeon 63-44-9610Qnfuwd differential comment Chapin (Bld) [Interp]Blood manual differential comment interpretation narrative [facility], AvonCB W Auto Differential panel (Bld)on 88-64-3929Egkzeocav (Bld) [#/Vol]0.03 10*3/uLNormal<0.11CUniversity Hospitals Elyria Medical CenterComment on above:Order Comment: Specimen Type: BLOOD SPECIMENOrdering Facility: [facility] Address:[address] [place], [place] [address]Performed By: #### 32331-4 ####[facility] LABCLIA [id number] [place], [place] [address]Phyilrxjx/100 WBC (Bld)0.4 % NormalSt. Vincent HospitalComment on above:Order Comment: Specimen Type: BLOOD SPECIMENOrdering Facility: [facility] Address:[address] [place], [place] [address]Performed By: #### 65631-1 ####[facility] LABCLIA [id number] [place] [address] Differential cell count method Nom (Bld)AutoNormalCUniversity Hospitals [facility] Comment on above:Order Comment: Specimen Type: BLOOD SPECIMENOrdering Facility: [facility] Address:[address] [place] [address] Performed By: #### 25720-0 ####[facility] LABCLIA [id number] [place], [place] [address]Aknzhfygpaa (Bld) [#/Vol]0.20 10*3/uLNormal<0.46[facility] on above:Order Comment: Specimen Type: BLOOD SPECIMENOrdering Facility: [facility] Address:[address] [place], [place] [address]Performed By: #### 78999-5 ####[facility] LABCLIA [id number] [place], [place] [address]Upcheneippb/100 WBC (Bld)2.9 %NormalAshtabula County Medical Center on above:Order Comment: Specimen Type: BLOOD SPECIMENOrdering Facility: [facility] Address:[address] [place], [place] [address]Performed By: #### 98139-5 ####[facility] LABIA [id number] [place], [place] [address]Aeqsajxwewy distribution width (RBC) [Ratio]12.7 %Mjmtab85.5-15.0[facility] on above: Order Comment: Specimen Type: BLOOD SPECIMENOrdering Facility: [facility] Address:[address] [place], [place] [address]Performed By: #### 54875- 8 ####[facility] LABIA [id number] [place], [place] [address]Nalnjmpobh (Bld) [Volume fraction]41.7 %Oapjin08.0-51.0 [facility] on above:Order Comment: Specimen Type: BLOOD SPECIMENOrdering Facility: [facility] Address:[address] [place], [place] [address]Performed By: #### 27740-5 ####[facility] LABIA [id number] [place], [place] [address]Cxhimrfpyh (Bld) [Mass/Vol]14.4 g/iFMeborb30.0-17.0[facility] on above: Order Comment: Specimen Type: BLOOD SPECIMENOrdering Facility: [facility] Address:[address] [place], [place] [address]Performed By: #### 44198- 8 ####[facility] LABCLIA [id number] [place], [place] [address]Qloyfewp granulocytes (Bld) [#/Vol]0.03 10*3/uLNormal <0.10[facility] on above:Order Comment: Specimen Type: BLOOD SPECIMENOrdering Facility: [facility] Address:[address] [place], [place] [address]Performed By: #### 55480-9 ####[facility] LABCLIA [id number] [place], [place] [address]Ufctjoys granulocytes/100 WBC (Bld)0.4 %NormalAshtabula County Medical Center on above: Order Comment: Specimen Type: BLOOD SPECIMENOrdering Facility: [facility] Address:[address] [place], [place] [address]Performed By: #### 50299- 8 ####[facility] LABCLIA [id number] [place], [place] [address]Sefwpsniwqr (Bld) [#/Vol]0.88 10*3/uLLow1.00-4.00 [facility] on above:Order Comment: Specimen Type: BLOOD SPECIMENOrdering Facility: [facility] Address:[address] [place], [place] [address]Performed By: #### 15610-4 ####[facility] LABCLIA [id number] [place], [place] [address]Lmngrvliyyv/100 WBC (Bld)12.7 %NormalAshtabula County Medical Center on above:Order Comment: Specimen Type: BLOOD SPECIMENOrdering Facility: [facility] Address:[address] [place], [place] [address]Performed By: #### 04433-6 ####[facility] LABCLIA [id number] [place], [place] [address]HAG (RBC) [Entitic mass]30.4 xzJsynuy87.0-34.0[facility] on above:Order Comment: Specimen Type: BLOOD SPECIMENOrdering Facility: [facility] Address:[address] [place], [place] [address]Performed By: #### 88219-4 ####[facility] LABCLIA [id number] [place], [place] [address]MMNG (RBC) [Mass/Vol]34.5 g/iMGjvgnz56.5-36.0[facility] on above: Order Comment: Specimen Type: BLOOD SPECIMENOrdering Facility: [facility] Address:[address] [place], [place] [address]Performed By: #### 22680- 8 ####[facility] LABCLIA [id number] [place], [place] [address]TTJ (RBC) [Entitic vol]88.0 xPMjetol25.0-100.0[facility] on above:Order Comment: Specimen Type: BLOOD SPECIMENOrdering Facility: [facility] Address:[address] [place], [place] [address]Performed By: #### 22611-1 ####[facility] LABIA [id number] [place], [place] [address]Cismcpakb (Bld) [#/Vol]0.58 10*3/uLNormal<0.87[facility] on above:Order Comment: Specimen Type: BLOOD SPECIMENOrdering Facility: [facility] Address:[address] [place], [place] [address]Performed By: #### 14549- 8 ####[facility] LABIA [id number] [place], [place] [address]Vcijxxvww/100 WBC (Bld)8.4 %NormalAshtabula County Medical Center on above:Order Comment: Specimen Type: BLOOD SPECIMENOrdering Facility: [facility] Address:[address] [place], [place] [address]Performed By: #### 81654-5 ####[facility] LABCLIA [id number] [place], [place] [address]Pngtgtpmobb (Bld) [#/Vol]5.19 10*3/uLNormal1.45-7.50[facility] on above:Order Comment: Specimen Type: BLOOD SPECIMENOrdering Facility: [facility] Address:[address] [place], [place] [address]Performed By: #### 90928-7 ####[facility] LABCLIA [id number] [place], [place] [address]Qupdpppqvtp/100 WBC (Bld)75.2 %NormalAshtabula County Medical Center on above:Order Comment: Specimen Type: BLOOD SPECIMENOrdering Facility: [facility] Address:[address] [place], [place] [address]Performed By: #### 97129-4 ####[facility] LABCLIA [id number] [place], [place] [address]Aolojkssh RBC (Bld) [#/Vol] 10*3/uLNormal<0.01[facility] on above:Order Comment: Specimen Type: BLOOD SPECIMENOrdering Facility: [facility] Address:[address] [place], [place] [address]Performed By: #### 76412-0 ####[facility] LABCLIA [id number] [place], [place] [address]Gvedgbrjj RBC/100 WBC (Bld) [Ratio]0.0 /100 WBCNormal [facility] on above:Order Comment: Specimen Type: BLOOD SPECIMENOrdering Facility: [facility] Address:[address] [place], [place] [address]Performed By: #### 13341-2 ####[facility] LABIA [id number] [place], [place] [address]Ilhafxqn mean volume (Bld) [Entitic vol]9.6 fLNormal9.0-12.7COhioHealth Hardin Memorial Hospital on above:Order Comment: Specimen Type: BLOOD SPECIMENOrdering Facility: [facility] Address:[address] [place] [address] Performed By: #### 39977-1 ####[facility] LABCLIA [id number] [place], [place] [address]Jsklrvvyz (Bld) [#/Vol]269 10*3/qAFfixtr536-334EhadnhgrcAshtabula County Medical Center on above:Order Comment: Specimen Type: BLOOD SPECIMENOrdering Facility: [facility] Address:[address] [place], [place] [address]Performed By: #### 99353-7 ####[facility] LABCLIA [id number] [place], [place] [address]UIQ (Bld) [#/Vol]4.74 10*6/uLNormal4.20-6.00[facility] on above:Order Comment: Specimen Type: BLOOD SPECIMENOrdering Facility: [facility] Address:[address] [place], [place] [address]Performed By: #### 20789-7 ####[facility] LABIA [id number] [place], [place] [address]UOM (Bld) [#/Vol]6.91 10*3/uLNormal3.70-11.00[facility] on above: Order Comment: Specimen Type: BLOOD SPECIMENOrdering Facility: [facility] Address:[address] [place], [place] [address]Performed By: #### 96931- 8 ####[facility] LABCLIA [id number] [place], [place] [address]ZOGRPYve 09-78-1456OZQLBMRqjiujCazzbgturFisher-Titus Medical Center metabolic 2000 panelon 98-49-8459Ucfzksu [Mass/Vol]4.4 g/dLNormal 3.9-4.9COhioHealth Hardin Memorial Hospital on above:Order Comment: Specimen Type: BLOOD SPECIMENOrdering Facility: [facility] Address:[address] [place], [place] [address]Performed By: #### 01061-9 ####[facility]ENTERMANJUL[facility] LABCLIA [id number] [place] [id number] [Catalytic activity/Vol]99 U/HTokxuo75-030JlovxgdtmAshtabula County Medical Center on above:Order Comment: Specimen Type: BLOOD SPECIMENOrdering Facility: [facility] Address:[address] [place], [place] [address]Performed By: #### 45152-6 ####[facility] LABCLIA [id number] KIM AZULSOUTHEASTERN ARIZONA BEHAVIORAL HEALTH SERVICESASHLYO'FALLON, [place] [address]DSS [Catalytic activity/Vol]12 U/DGwneqt05-58JfkxgvgumAshtabula County Medical Center on above:Order Comment: Specimen Type: BLOOD SPECIMENOrdering Facility: [facility] Address:[address] [place], [place] [address]Performed By: #### 01221-5 ####[facility] LABCLIA [id number] KIM SANTOSSOUTHEASTERN ARIZONA BEHAVIORAL HEALTH SERVICESLEENALAWR[place], [place] [address]Lxbgv gap [Moles/Vol]11 mmol/LNormal8-15[facility] on above:Order Comment: Specimen Type: BLOOD SPECIMENOrdering Facility: [facility] Address:[address] [place], [place] [address]Performed By: #### 82877- 8 ####[facility] LABCLIA [id number] [place], [place] [address]ZPL [Catalytic activity/Vol]9 U/ILys58-68GycngbhypAshtabula County Medical Center on above:Order Comment: Specimen Type: BLOOD SPECIMENOrdering Facility: [facility] Address:[address] [place], [place] [address]Performed By: #### 03051-3 ####[facility] LABCLIA [id number] [place]VIW[place], [place] [address]Dbhzjgqnf [Mass/Vol]0.3 mg/dL Normal0.2-1.3COhioHealth Hardin Memorial Hospital on above:Order Comment: Specimen Type: BLOOD SPECIMENOrdering Facility: [facility] Address:[address] [place], [place] [address]Performed By: #### 70033-8 ####[facility] LABCLIA [id number] [place] [address] Calcium [Mass/Vol]9.4 mg/dLNormal8.5-10.2COhioHealth Hardin Memorial Hospital on above:Order Comment: Specimen Type: BLOOD SPECIMENOrdering Facility: [facility] Address:[address] [place], [place] [address]Performed By: #### 77132-9 ####[facility] LABCLIA [id number] [place], [place] [address]Bmusijsq [Moles/Vol]103 mmol/LTdlrkt58-099IlqejzqdmAshtabula County Medical Center on above:Order Comment: Specimen Type: BLOOD SPECIMENOrdering Facility: [facility] Address:[address] [place], [place] [address]Performed By: #### 95937-9 ####[facility] LABCLIA [id number] [place], [place] [address]AZ4 [Moles/Vol] 24 mmol/VZjxepk42-24JpazbkygqAshtabula County Medical Center on above:Order Comment: Specimen Type: BLOOD SPECIMENOrdering Facility: [facility] Address:[address] [place], [place] [address]Performed By: #### 20009-5 ####[facility] LABCLIA [id number] [place], [place] [address]Yvgowuquhg [Mass/Vol]0.86 mg/dLNormal0.73-1.22[facility] on above:Order Comment: Specimen Type: BLOOD SPECIMENOrdering Facility: [facility] Address:[address] [place], [place] [address]Performed By: #### 63920-1 ####[facility] LABCLIA [id number] [place], [place] [address]Recuwzrytx and Glomerular filtration rate.predicted panel (S/P/Bld)99 mL/min/1.73m???Normal>=60 [facility] on above:Order Comment: Specimen Type: BLOOD SPECIMENOrdering Facility: [facility] Address:[address] [place], [place] [address]Result Comment: Estimated Glomerular Filtration Rate (eGFR) is calculated using the 2020 CKD-EPI creatinine equation. This equation utilizes serum creatinine, sex, and age as parameters. The creatinine assay has traceable calibration to isotope dilution-mass spectrometry. Refer to KDIGO guidelines for clinical interpretation. In patients with unstable renal function, e.g. those with acute kidney injury, the eGFR may not accurately reflect actual GFR.Performed By: #### 57577-6 ####[facility] LABCLIA [id number] [place], [place] [address]Wlzegye [Mass/Vol]160 mg/hGOfmz30-86DcrquymzxAshtabula County Medical Center on above:Order Comment: Specimen Type: BLOOD SPECIMENOrdering Facility: [facility] Address:[address] [place] [address] Comment: The [place] Diabetes Association (ADA) provides guidance for cutoff values for fast ing glucose and random glucose. The ADA defines fasting as no caloric intake for at least 8 hours. Fasting plasma glucose results between 100 to 125 mg/dL indicate increased risk for diabetes (prediabetes).Fasting plasma glucose results greater than or equal to 126 mg/dL meet the criteria for diagnosis of diabetes. In the absence of unequivocal hyperglycemia, results should be confirmed by repeattesting. In a patient with classic symptoms of hyperglycemia or hyperglycemic crisis, random plasmaglucose results greater than or equal to 200 mg/dL meet the criteria for diagnosis of diabetes.Reference: Standards of Medical Care in Diabetes 2016, [place] [employer]. Diabetes Care. 2016.39(Suppl 1).Performed By: #### 35492-4 ####[facility] LABCLIA [id number] [place], [place] [address]Elcvawtfa [Moles/Vol]4.3 mmol/LNormal3.7-5.1COhioHealth Hardin Memorial Hospital on above: Order Comment: Specimen Type: BLOOD SPECIMENOrdering Facility: [facility] Address:[address] [place], [place] [address]Performed By: #### 59130- 8 ####[facility] LABCLIA [id number] [place], [place] [address]Iavixjm [Mass/Vol]6.6 g/dLNormal6.3-8.0[facility] on above:Order Comment: Specimen Type: BLOOD SPECIMENOrdering Facility: [facility] Address:[address] [place], [place] [address]Performed By: #### 19917-0 ####[facility] LABCLIA [id number] [place], [place] [address]Kngkhf [Moles/Vol]138 mmol/L Lkwyal164-488GbsbljmowAshtabula County Medical Center on above:Order Comment: Specimen Type: BLOOD SPECIMENOrdering Facility: [facility] Address:[address] [place], [place] [address]Performed By: #### 27970-6 ####[facility] LABCLIA [id number] [place] [address] Urea nitrogen [Mass/Vol]24 mg/dLNormal9-24[facility] on above:Order Comment: Specimen Type: BLOOD SPECIMENOrdering Facility: [facility] Address:[address] [place], [place] [address]Performed By: #### 71721-1 ####[facility] LABCLIA [id number] [place], [place] [address]Lvsstvkfapp/100 WBC Auto (Bld)on 09-17-2024 Eosinophils/100 WBC (Bld)Automated eosinophil %[facility] Erythrocyte distribution width Auto (RBC) [Ratio]on 23-49-3485Atnurjgykph distribution width (RBC) [Ratio]Erythrocyte distribution width [Ratio] by Automated count11.5-15.0[facility], AvonHematocrit Auto (Bld) [Volume fraction]on 14-52-0038Omurcnqlfx (Bld) [Volume fraction]Hematocrit [Volume Fraction] of Blood by Automated count39.0-51.0[facility], AvonHemoglobin [Mass/volume] in Bloodon 09-05-0318Txicjnflqo (Bld) [Mass/Vol] Hemoglobin [Mass/volume] in Blood13.0-17.0[facility] Laboratory - Chemistry and Chemistry - challengeon 37-23-9891Vbbivop [Mass/Vol] 4.4 g/dL3.9-4.9[facility]onALP [Catalytic activity/Vol]99 U/X66-911ChnstutsaSelect Medical [facility], AvonALT [Catalytic activity/Vol]12 U/L 10-54[facility]onAST [Catalytic activity/Vol]9 U/OSfd51-24 [facility], AvonBilirubin [Mass/Vol]0.3 mg/dL0.2-1.3FDelaware County HospitalCalcium [Mass/Vol]9.4 mg/dL8.5-10.2FDelaware County HospitalChloride [Moles/Vol]103 mmol/F35-996AcizhlcdlSelect Medical [facility], AvonCO2 [Moles/Vol]24 mmol/T29-80TodzlqpraSelect Medical [facility] Rehabilitation [facility], AvonCreatinine [Mass/Vol]0.86 mg/dL0.73-1.22[facility] AvonGlucose [Mass/Vol] 160 mg/vIEzwn24-14HcjlgfzcvSelect Medical [facility] Clinic Rehabilitation Hospital, AvonComment on above:The [place] Diabetes Association (ADA) provides guidance for cutoff [...] diabetes.Reference: Standardsof Medical Care in Diabetes 2016, [place] Diabetes Association. Diabetes Care. 2016.39(Suppl 1). Potassium [Moles/Vol]4.3 mmol/L3.7-5.1FBlanchard Valley Health System Blanchard Valley Hospitalodium [Moles/Vol]138 mmol/L652-715UyezvgiptSelect Medical Cleveland Clinic Rehabilitation Hospital, AvonUrea nitrogen [Mass/Vol]24 mg/dL9-24[facility], AvonLaboratory - Hematology and Cell countson 74-43-2161Zpwwmktspbm (Bld) [#/Vol]0.20 10*3/uL<0.46[facility], AvonImmature granulocytes (Bld) [#/Vol]0.03 10*3/uL<0.10 [facility], AvonIminture granulocytes/100 WBC (Bld)0.4 % [facility], AvonLeukocytes [#/volume] corrected for nucleated erythrocytes in Blood by Automated counon 35-49-6097QVP corrected for nucl RBC Auto (Bld) [#/Vol]Leukocytes [#/volume] corrected for nucleated erythrocytes in Blood by Automated coun3.70-11.00[facility], AvonLymphocytes Auto (Bld) [#/Vol]on 96-19-7385Ceanymtbctp (Bld) [#/Vol]Lymphocytes [#/volume] in Blood by Automated countLow1.00-4.00[facility] Lymphocytes/100 WBC Auto (Bld)on 35-32-8102Ieihakynpjq/100 WBC (Bld) Lymphocytes/100 leukocytes in Blood by Automated countWilson HealthH Auto (RBC) [Entitic mass]on 00-78-5609RAP (RBC) [Entitic mass]MCH [Entitic mass] by Automated count26.0-34.0[facility], AvonMCHC Auto (RBC) [Mass/Vol]on 19-88-8997DBSP (RBC) [Mass/Vol]MCHC [Mass/volume] by Automated count30.5-36.0[facility], AvonMCV Auto (RBC) [Entitic vol]on 07-63-9522ZTH (RBC) [Entitic vol]MCV [Entitic volume] by Automated count 80.0-100.0[facility], AvonMonocytes Auto (Bld) [#/Vol]on 70-54-7643Gidzwjfez (Bld) [#/Vol]Automated blood monocyte count<0.87[facility]onMonocytes/100 WBC Auto (Bld)on 01-10-5136Bmbbpgtbv/100 WBC (Bld)Automated monocyte %[facility], AvonNeutrophils Auto (Bld) [#/Vol]on 29-19-2455Wwsritbboza (Bld) [#/Vol]Neutrophils [#/volume] in Blood by Automated count1.45-7.50[facility] Neutrophils/100 WBC Auto (Bld)on 62-85-6746Erudraqxbfs/100 WBC (Bld)Automated neutrophil %[facility], [facility]onNo Panel Informationon 09-17-2024 Estimated GFR (CKD-EPI)99 mL/min/1.73m???>=60[facility] Comment on above:Estimated Glomerular Filtration Rate (eGFR) is calculated using the 2020 CKD-EPI creatinine equation. This equation utilizes serum creatinine, sex, and age as parameters. The creatinine assay has traceable calibration to isotope dilution-mass spectrometry. Refer to KDIGO guidelines for clinical inte rpretation. In patients with unstable renal function, e.g. those with acute kidney injury, the eGFRmay not accurately reflect actual GFR.Nucleated RBC Auto (Bld) [#/Vol]on 62-52-4201Flprwxlen RBC (Bld) [#/Vol]Nucleated erythrocytes [#/volume] in Blood by Automated count<0.01[facility] Nucleated erythrocytes [Presence] in Blood by Automated counton 09-17-2024 Nucleated RBC Auto Ql (Bld)Nucleated erythrocytes [Presence] in Blood by Automated countSelect Medical Cleveland Clinic Rehabilitation Hospital, AvonPlatelet mean volume Auto (Bld) [Entitic vol]on 41-41-4735Lmqqetxa mean volume (Bld) [Entitic vol]Platelet mean volume [Entitic volume] in Blood by Automated count9.0-12.7FDelaware County HospitalPlatelets Auto (Bld) [#/Vol]on 29-72-6734Iclviolmr (Bld) [#/Vol] Platelets [#/volume] in Blood by Automated dipqf420-605LhpvxvzsqSelect Medical [facility] Clinic [facility], AvonProtein [Mass/volume] in Serum or Plasmaon 11-81-4270Fgqsbwl [Mass/Vol]Protein [Mass/volume] in Serum or Plasma6.3-8.0[facility], AvonRBC Auto (Bld) [#/Vol]on 59-80-1235OUL (Bld) [#/Vol]Erythrocytes [#/volume] in Blood by Automated count4.20-6.00[facility] Serum or plasma anion gap determinationon 43-82-3639Felfz gap [Moles/Vol]Serum or plasma anion gap determination815[facility] Amphetamine Screen Ql (U)Ordered By: Kenn Hodgson on 54-47-9112Tysusirguhzs Ql (U)Amphetamines screenNegativeSelect Medical [facility] Clinic Rehabilitation Hospital, AvonBarbiturates [Presence] in Urine by Screen methodOrdered By: Kenn Hodgson on 09-12-2024 Barbiturates Screen Ql (U)Barbiturates [Presence] in Urine by Screen method NegativeSelect Medical [facility] Clinic Rehabilitation Hospital, AvonBenzodiazepines Screen Ql (U)Ordered By: Kenn Hodgson on 72-82-2792Myzfgivmhxfqmqf Ql (U)Benzodiazepines [Presence] in Urine by Screen methodHighNegativeSelect Medical [facility] Clinic [facility], AvonBenzoylecgonine [Presence] in Urine by Screen methodOrdered By: Kenn Hodgson on 08-54-8560Muebuqxnmqxsgrw Screen Ql (U)Benzoylecgonine [Presence] in Urine by Screen methodNegativeSelect Medical [facility], AvonCannabinoids [Presence] in Urine by Screen methodOrdered By: Kenn Hodgson on 09-12-2024 Cannabinoids Screen Ql (U)Cannabinoids [Presence] in Urine by Screen methodHigh NegativeSelect Medical Cleveland Clinic Rehabilitation Hospital, AvonComment on above:These are unconfirmed results and should not be used for legal purposes. Drug Cut-Off Concentration: AMPH 1000 ng/mL NICHOLE 200 ng/mL KYLIE 200 ng/mL COCM 300 ng/mL OP 300 ng/mL PCP 25 ng/mL THC 20 ng/mLDrug Screen,Urineon 28-97-8152Ilpkbvsingm Screen,Urine NegativeNormalNegativeThe Unc [facility] Nash Physician GroupComment on above:Performed By: #### URDS #### [place] [address] USABarbiturate Screen,UrineNegativeNormalNegativeThe [facility] Nash Physician GroupComment on above:Performed By: #### URDS #### [place] [address] USABenzodiazepines Screen,UrinePositiveHighNegativeThe [facility] Nash Physician GroupComment on above:Performed By: #### URDS #### [place] [address] USACannabinoid Screen,UrinePositiveHighNegativeThe [facility] Nash Physician GroupComment on above:Result Comment: These are unconfirmed results and should not be used for legal purposes. Drug Cut-Off Concentration: AMPH 1000 ng/mL NICHOLE 200 ng/mL KYLIE 200 ng/mL COCM 300 ng/mL OP 300 ng/mL PCP 25 ng/mL THC 20 ng/mL PERFORMED BY: [place] [address] PATHOLOGIST HOSE TESTER OSCAR SMILEY M.D.Performed By: #### URDS #### [place] [address] USACocaine Screen,UrineNegativeNormalNegativeBaptist Health [facility] Physician GroupComment on above:Performed By: #### URDS #### [place] [address] USAOpiate Screen,UrineNegativeNormalNegativeThe [facility] Physician GroupComment on above:Performed By: #### URDS #### [place] [address] USAPhencyclidine Screen,UrineNegativeNormalNegativeThe [facility] Nash Physician GroupComment on above:Performed By: #### URDS #### [place] [address] USAGLUCOSE POCT GLUCOMETERSon 75-40-7457YCXYCCU1Bxp0: Cleaned MeterNOMS HealthcareGlucose [Mass/Vol]152 mg/dLNOMS HealthcareComment on above: Random Glucose Reference Range is dependent on time and content of last meal. Glucose of more than 200 mg/dL in a nonstressed, ambulatory subject supports the diagnosis of Diabetes Mellitus. [facility] NxqxfxcvdkUIDEAHW7Iuc5: Cleaned MeterNOMS HealthcareGlucose [Mass/Vol]125 mg/dLLOGAN REGIONAL [facility]PITAL HealthcareComment on above:Random Glucose Reference Range is dependent on time and content of last meal. Glucose of more than 200 mg/dL in a nonstressed, ambulatory subject supports the diagnosis of Diabetes Mellitus. Kindred HospitalGlucose Glucometer ([facility]) [Mass/Vol]Ordered By: Joby Sol on 50-68-2886Fkjqpoa [Mass/Vol]Capillary blood glucose measurement by glucometer (mass/volume)[facility], AvonComment on above:Random Glucose Reference Range is dependent on time and content of last meal. Glucose of more than 200 mg/dL in a nonstressed, ambulatory subject supports the diagnosis of Diabetes Mellitus.Glucose Poct Glucometerson 77-31-5521Zwabcyu0Ykm2: Cleaned MeterAdventHealth Lake Placid Physician GroupComment on above:Result Comment: PERFORMED BY: [address]Arely [place] [id number] PATHOLOGIST HOSE TESTER OSCAR SMILEY M.D.Performed By: #### GLULS #### Point of Care testing ,Glucose [Mass/Vol]152 mg/dLAdventHealth Lake Placid Physician GroupComment on above: Result Comment: Random Glucose Reference Range is dependent on time and content of last meal. Glucose of more than 200 mg/dL in a nonstressed, ambulatory subject supports the diagnosis of Diabetes Mellitus.Performed By: #### GLULS #### Point of Care testing ,Ibkrijf0Tcc3: Cleaned MeterAdventHealth Lake Placid Physician GroupComment on above: Result Comment: PERFORMED BY: [address]Arely [place] [id number] PATHOLOGIST HOSE TESTER OSCAR SMILEY M.D.Performed By: #### GLULS #### Point of Care testing ,Glucose [Mass/Vol]125 mg/dLAdventHealth Lake Placid Physician GroupComment on above: Result Comment: Random Glucose Reference Range is dependent on time and content of last meal. Glucose of more than 200 mg/dL in a nonstressed, ambulatory subject supports the diagnosis of Diabetes Mellitus.Performed By: #### GLULS #### Point of Care testing ,No Panel InformationOrdered By: Joby Sol on 70-28-0932Ghpdyqx Glucose CommentGlu2: cleaned meterSelect Medical [facility] Clinic Rehabilitation Hospital, AvonOpiates [Presence] in Urine by Screen methodOrdered By: Kenn Hodgson on 52-74-2990Ywrqxsa Screen Ql (U)Opiates [Presence] in Urine by Screen methodNegativeSelect Medical Cleveland Clinic Rehabilitation Hospital, AvonPhencyclidine Screen Ql (U)Ordered By: Kenn Hodgson on 82-29-0187Mxhixdrfjjznd Ql (U)Phencyclidine [Presence] in Urine by Screen method NegativeSelect Medical Cleveland Clinic Rehabilitation Hospital, AvonBasophils Auto (Bld) [#/Vol]on 75-64-0916Vqlntvlrk (Bld) [#/Vol]Automated basophil count<0.11[facility], AvonBasophils/100 WBC Auto (Bld)on 46-08-3746Nsslwxyze/100 WBC (Bld) Automated basophil %[facility], AvonBlood manual differential comment interpretation narrativeon 37-18-0338Rmjwaj differential comment Chapin (Bld) [Interp]Blood manual differential comment interpretation narrative [facility], AvonCBC W Auto Differential panel (Bld)on 15-41-2224Cyjkotfca (Bld) [#/Vol]10*3/uLNormal<0.11CUniversity [facility]als [facility] Comment on above:Order Comment: Specimen Type: BLOOD SPECIMENOrdering Facility: [facility] Address:[address] [place] [address] Performed By: #### 85180-6 ####[facility] LABCLIA [id number] [place], [place] [address]Yghvgilsp/100 WBC (Bld)0.2 % NormalSt. Vincent HospitalComment on above:Order Comment: Specimen Type: BLOOD SPECIMENOrdering Facility: [facility] Address:[address] [place] [address]Kpqrnotfn By: #### 58571-6 ####[facility] LABCLIA [id number] [place] [address] Differential cell count method Nom (Bld)AutoNormalClevelCritical access hospital Comment on above:Order Comment: Specimen Type: BLOOD SPECIMENOrdering Facility: [facility] Address:[address] [place] [address] Performed By: #### 64571-9 ####[facility] LABCLIA [id number] [place], [place] [address]Qgvsuwrzsbl (Bld) [#/Vol]0.23 10*3/uLNormal<0.46[facility] on above:Order Comment: Specimen Type: BLOOD SPECIMENOrdering Facility: [facility] Address:[address] [place], [place] [address]Performed By: #### 43355-8 ####[facility] LABIA [id number] [place], [place] [address]Lgyfoiolpid/100 WBC (Bld)2.7 %NormalAshtabula County Medical Center on above:Order Comment: Specimen Type: BLOOD SPECIMENOrdering Facility: [facility] Address:[address] [place], [place] [address]Performed By: #### 89550-5 ####[facility] LABIA [id number] [place], [place] [address]Itvnpxvskyz distribution width (RBC) [Ratio]12.9 %Ihcobf35.5-15.0[facility] on above: Order Comment: Specimen Type: BLOOD SPECIMENOrdering Facility: [facility] Address:[address] [place], [place] [address]Performed By: #### 86614- 8 ####[facility] LABIA [id number] [place], [place] [address]Xartzjfomn (Bld) [Volume fraction]39.9 %Ujjwcb95.0-51.0 [facility] on above:Order Comment: Specimen Type: BLOOD SPECIMENOrdering Facility: [facility] Address:[address] [place], [place] [address]Performed By: #### 48484-8 ####[facility] LABIA [id number] [place], [place] [address]Qryxdncaco (Bld) [Mass/Vol]14.2 g/vAEgosdr56.0-17.0[facility] on above: Order Comment: Specimen Type: BLOOD SPECIMENOrdering Facility: [facility] Address:[address] [place], [place] [address]Performed By: #### 21627- 8 ####[facility] LABIA [id number] [place], [place] [address]Uyajtbvr granulocytes (Bld) [#/Vol]0.05 10*3/uLNormal <0.10[facility] on above:Order Comment: Specimen Type: BLOOD SPECIMENOrdering Facility: [facility] Address:[address] [place], [place] [address]Performed By: #### 71056-6 ####[facility] LABIA [id number] [place], [place] [address]Zawrsavn granulocytes/100 WBC (Bld)0.6 %NormalAshtabula County Medical Center on above: Order Comment: Specimen Type: BLOOD SPECIMENOrdering Facility: [facility] Address:[address] [place], [place] [address]Performed By: #### 72725- 8 ####[facility] LABCLIA [id number] [place], [place] [address]Ywrpqkcfblq (Bld) [#/Vol]0.90 10*3/uLLow1.00-4.00 [facility] on above:Order Comment: Specimen Type: BLOOD SPECIMENOrdering Facility: [facility] Address:[address] [place], [place] [address]Performed By: #### 24761-9 ####[facility] LABIA [id number] [place], [place] [address]Whctvdemhim/100 WBC (Bld)10.6 %NormalAshtabula County Medical Center on above:Order Comment: Specimen Type: BLOOD SPECIMENOrdering Facility: [facility] Address:[address] [place], [place] [address]Performed By: #### 23931-4 ####[facility] LABCLIA [id number] [place], [place] [address]AFY (RBC) [Entitic mass]31.1 vqEoksbv95.0-34.0[facility] on above:Order Comment: Specimen Type: BLOOD SPECIMENOrdering Facility: [facility] Address:[address] [place], [place] [address]Performed By: #### 02032-8 ####[facility] LABCLIA [id number] [place], [place] [address]IDVQ (RBC) [Mass/Vol]35.6 g/eIAgijan60.5-36.0[facility] on above: Order Comment: Specimen Type: BLOOD SPECIMENOrdering Facility: [facility] Address:[address] [place], [place] [address]Performed By: #### 27458- 8 ####[facility] LABCLIA [id number] [place], [place] [address]GBW (RBC) [Entitic vol]87.5 sDBpqzei02.0-100.0[facility] on above:Order Comment: Specimen Type: BLOOD SPECIMENOrdering Facility: [facility] Address:[address] [place], [place] [address]Performed By: #### 47444-6 ####[facility] LABIA [id number] [place], [place] [address]Xlrkibiko (Bld) [#/Vol]0.76 10*3/uLNormal<0.87[facility] on above:Order Comment: Specimen Type: BLOOD SPECIMENOrdering Facility: [facility] Address:[address] [place], [place] [address]Performed By: #### 45701- 8 ####[facility] LABCLIA [id number] [place], [place] [address]Ggocgnhaz/100 WBC (Bld)9.0 %NormalAshtabula County Medical Center on above:Order Comment: Specimen Type: BLOOD SPECIMENOrdering Facility: [facility] Address:[address] [place], [place] [address]Performed By: #### 97865-8 ####[facility] LABCLIA [id number] [place], [place] [address]Vdwdylkkvvl (Bld) [#/Vol]6.51 10*3/uLNormal1.45-7.50[facility] on above:Order Comment: Specimen Type: BLOOD SPECIMENOrdering Facility: [facility] Address:[address] [place], [place] [address]Performed By: #### 59998-0 ####[facility] LABCLIA [id number] [place], [place] [address]Omidsijomgz/100 WBC (Bld)76.9 %NormalAshtabula County Medical Center on above:Order Comment: Specimen Type: BLOOD SPECIMENOrdering Facility: [facility] Address:[address] [place], [place] [address]Performed By: #### 64875-6 ####[facility] LABCLIA [id number] [place], [place] [address]Ilfcxblwv RBC (Bld) [#/Vol] 10*3/uLNormal<0.01[facility] on above:Order Comment: Specimen Type: BLOOD SPECIMENOrdering Facility: [facility] Address:[address] [place], [place] [address]Performed By: #### 82538-1 ####[facility] LABCLIA [id number] [place], [place] [address]Ufinjkjoa RBC/100 WBC (Bld) [Ratio]0.0 /100 WBCNormal [facility] on above:Order Comment: Specimen Type: BLOOD SPECIMENOrdering Facility: [facility] Address:[address] [place], [place] [address]Performed By: #### 82533-2 ####[facility] LABCLIA [id number] [place], [place] [address]Gbrbvjol mean volume (Bld) [Entitic vol]9.6 fLNormal9.0-12.7COhioHealth Hardin Memorial Hospital on above:Order Comment: Specimen Type: BLOOD SPECIMENOrdering Facility: [facility] Address:[address] [place] [address] Performed By: #### 66145-1 ####[facility] LABCLIA [id number] [place], [place] [address]Cjjdujuxx (Bld) [#/Vol]231 10*3/cEBebhjz301-312CqtswzljaAshtabula County Medical Center on above:Order Comment: Specimen Type: BLOOD SPECIMENOrdering Facility: [facility] Address:[address] [place], [place] [address]Performed By: #### 93156-4 ####[facility] LABCLIA [id number] [place], [place] [address]LSX (Bld) [#/Vol]4.56 10*6/uLNormal4.20-6.00[facility] on above:Order Comment: Specimen Type: BLOOD SPECIMENOrdering Facility: [facility] Address:[address] [place], [place] [address]Performed By: #### 10925-1 ####[facility] LABCLIA [id number] [place], [place] [address]OTD (Bld) [#/Vol]8.47 10*3/uLNormal3.70-11.00[facility] on above: Order Comment: Specimen Type: BLOOD SPECIMENOrdering Facility: [facility] Address:[address] [place], [place] [address]Performed By: #### 06827- 8 ####[facility] LABCLIA [id number] KIM AZULSOUTHEASTERN ARIZONA BEHAVIORAL HEALTH SERVICESASHLYO'FALLON, [place] [address]BGHBENfj 21-43-0869UFFHMZPrkioiCnshiydtcFisher-Titus [facility] Center metabolic 2000 panelon 43-41-8249Jipwgae [Mass/Vol]4.4 g/dLNormal 3.9-4.9COhioHealth Hardin Memorial Hospital on above:Order Comment: Specimen Type: BLOOD SPECIMENOrdering Facility: [facility] Address:[address] [place], [place] [address]Performed By: #### 61519-6 ####[facility] LABCLIA [id number] KIM SANTOSSOUTHEASTERN ARIZONA BEHAVIORAL HEALTH SERVICESASHLYO'[place]ALLON, [place] [address]BIH [Catalytic activity/Vol]86 U/KLchtfy97-650SdalvtrszAshtabula County Medical Center on above:Order Comment: Specimen Type: BLOOD SPECIMENOrdering Facility: [facility] Address:[address] [place], [place] [address]Performed By: #### 01010-1 ####[facility] LABCLIA [id number] YVROSE ANUSHKA AZULSOUTHEASTERN ARIZONA BEHAVIORAL HEALTH SERVICESASHLYO'[place]ON, [place] [address]PIF [Catalytic activity/Vol]13 U/ZApsdku96-32YwpemhlgoAshtabula County Medical Center on above:Order Comment: Specimen Type: BLOOD SPECIMENOrdering Facility: [facility] Address:[address] [place], [place] [address]Performed By: #### 29854-0 ####[facility] LABCLIA [id number] [facility] DOTHAN ANUSHKAPURVISOUTHEASTERN ARIZONA BEHAVIORAL HEALTH SERVICESASHLYO'[place], [place] [address]Dmaux gap [Moles/Vol]9 mmol/LNormal8-15[facility] on above:Order Comment: Specimen Type: BLOOD SPECIMENOrdering Facility: [facility] Address:[address] [place], [place] [address]Performed By: #### 69363- 8 ####[facility] LABCLIA [id number] [facility] D[facility] [place]USH[place], [place] [address]GAL [Catalytic activity/Vol]11 U/UGpm50-30FotcpwlssAshtabula County Medical Center on above:Order Comment: Specimen Type: BLOOD SPECIMENOrdering Facility: [facility] Address:[address] [place], [place] [address]Performed By: #### 61988-2 ####[facility] LABCLIA [id number] [place], [place] [address]Hsxjbhinl [Mass/Vol]0.3 mg/dLNormal0.2-1.3COhioHealth Hardin Memorial Hospital on above:Order Comment: Specimen Type: BLOOD SPECIMENOrdering Facility: [facility] Address:[address] [place], [place] [address]Performed By: #### 83640- 8 ####[facility] LABCLIA [id number] [facility] [place], [place] [address]Ysvwdze [Mass/Vol]9.0 mg/dLNormal8.5-10.2COhioHealth Hardin Memorial Hospital on above:Order Comment: Specimen Type: BLOOD SPECIMENOrdering Facility: [facility] Address:[address] [place], [place] [address]Performed By: #### 45283-3 ####[facility] LABCLIA [id number] [place], [place] [address]Fdotgbak [Moles/Vol]103 mmol/L Psnwtu34-386WmgdrbceuAshtabula County Medical Center on above:Order Comment: Specimen Type: BLOOD SPECIMENOrdering Facility: [facility] Address:[address] [place], [place] [address]Performed By: #### 82386-8 ####[facility] LABCLIA [id number] [place] [address] CO2 [Moles/Vol]27 mmol/XNzyzyq43-18GuecunzehAshtabula County Medical Center on above: Order Comment: Specimen Type: BLOOD SPECIMENOrdering Facility: [facility] Address:[address] [place], [place] [address]Performed By: #### 05624- 8 ####[facility] LABCLIA [id number] [place], [place] [address]Ikcufodpcb [Mass/Vol]0.81 mg/dLNormal0.73-1.22[facility] on above:Order Comment: Specimen Type: BLOOD SPECIMENOrdering Facility: [facility] Address:[address] [place] [id number] By: #### 47404-4 ####[facility] LABCLIA [id number] [place], [place] [address]Msofiuvseg and Glomerular filtration rate.predicted panel (S/P/Bld)101 mL/min/1.73m???Normal >=60[facility] on above:Order Comment: Specimen Type: BLOOD SPECIMENOrdering Facility: [facility] Address:[address] [place], [place] [address]Result Comment: Estimated Glomerular Filtration Rate (eGFR) is calculated using the 2020 CKD-EPI creatinine equation. This equation utilizes serum creatinine, sex, and age as parameters. The creatinine assay has traceable calibration to isotope dilution-mass spectrometry. Refer to KDIGO guidelines for clinical interpretation. In patients with unstable renal function, e.g. those with acute kidney injury, the eGFR may not accurately reflect actual GFR.Performed By: #### 75144-6 ####[facility] LABIA [id number] [place], [place] [address]Bgnhcbk [Mass/Vol]133 mg/pRQgam20-87WsakfrfcvAshtabula County Medical Center on above:Order Comment: Specimen Type: BLOOD SPECIMENOrdering Facility: [facility] Address:[address] [place], [place] [address]Result Comment: The [place] Diabetes Association (ADA) provides guidance for cutoff values for fast ing glucose and random glucose. The ADA defines fasting as no caloric intake for at least 8 hours. Fasting plasma glucose results between 100 to 125 mg/dL indicate increased risk for diabetes (prediabetes).Fasting plasma glucose results greater than or equal to 126 mg/dL meet the criteria for diagnosis of diabetes. In the absence of unequivocal hyperglycemia, results should be confirmed by repeattesting. In a patient with classic symptoms of hyperglycemia or hyperglycemic crisis, random plasmaglucose results greater than or equal to 200 mg/dL meet the criteria for diagnosis of diabetes.Reference: Standards of Medical Care in Diabetes 2016, [place] [employer]. Diabetes Care. 2016.39(Suppl 1).Performed By: #### 03495-5 ####[facility] LABCLIA [id number] [place], [place] [address]Mtoltbzqz [Moles/Vol]4.3 mmol/LNormal3.7-5.1COhioHealth Hardin Memorial Hospital on above: Order Comment: Specimen Type: BLOOD SPECIMENOrdering Facility: [facility] Address:[address] [place], [place] [address]Performed By: #### 30013- 8 ####[facility] LABCLIA [id number] [place], [place] [address]Muyebuc [Mass/Vol]6.6 g/dLNormal6.3-8.0[facility] on above:Order Comment: Specimen Type: BLOOD SPECIMENOrdering Facility: [facility] Address:[address] [place], [place] [address]Performed By: #### 69870-5 ####[facility] LABIA [id number] [place], [place] [address]Rbqveb [Moles/Vol]139 mmol/L Ejumpi826-847ZcnnjopioAshtabula County Medical Center on above:Order Comment: Specimen Type: BLOOD SPECIMENOrdering Facility: [facility] Address:[address] [place], [place] [address]Performed By: #### 00697-5 ####[facility] LABIA [id number] [place] [address] Urea nitrogen [Mass/Vol]25 mg/dLHigh9-24[facility] on above:Order Comment: Specimen Type: BLOOD SPECIMENOrdering Facility: [facility] Address:[address] [place] [address]Qsujuefis By: #### 35766-1 ####[facility] LABCLIA [id number] [place], [place] [address]Artcdfivrxn/100 WBC Auto (Bld)on 09-10-2024 Eosinophils/100 WBC (Bld)Automated eosinophil %[facility] Erythrocyte distribution width Auto (RBC) [Ratio]on 99-83-7128Zkqrxsooqkr distribution width (RBC) [Ratio]Erythrocyte distribution width [Ratio] by Automated count11.5-15.0[facility], AvonHematocrit Auto (Bld) [Volume fraction]on 97-55-9702Ugjbmppxse (Bld) [Volume fraction]Hematocrit [Volume Fraction] of Blood by Automated count39.0-51.0[facility], AvonHemoglobin [Mass/volume] in Bloodon 35-23-8373Yznxznagit (Bld) [Mass/Vol] Hemoglobin [Mass/volume] in Blood13.0-17.0[facility] Laboratory - Chemistry and Chemistry - challengeon 23-34-3116Emfwfmb [Mass/Vol] 4.4 g/dL3.9-4.9[facility]onALP [Catalytic activity/Vol]86 U/G33-873ZxjhlqcqbSelect Medical [facility], AvonALT [Catalytic activity/Vol]13 U/L 10-54[facility]onAST [Catalytic activity/Vol]11 U/JQwe86-18 [facility], AvonBilirubin [Mass/Vol]0.3 mg/dL0.2-1.3FDelaware County HospitalCalcium [Mass/Vol]9.0 mg/dL8.5-10.2FDelaware County HospitalChloride [Moles/Vol]103 mmol/T79-124HdglifjgsSelect Medical [facility], AvonCO2 [Moles/Vol]27 mmol/E58-39CjjysczwfSelect Medical [facility], AvonCreatinine [Mass/Vol]0.81 mg/dL0.73-1.22[facility] AvonGlucose [Mass/Vol] 133 mg/zNHubt80-11QyfqhnywbSelect Medical [facility] Rehabilitation Hospital, AvonComment on above:The [place] Diabetes Association (ADA) provides guidance for cutoff [...] diabetes.Reference: Standardsof Medical Care in Diabetes 2016, [place] Diabetes Association. Diabetes Care. 2016.39(Suppl 1). Potassium [Moles/Vol]4.3 mmol/L3.7-5.1FBlanchard Valley Health System Blanchard Valley Hospitalodium [Moles/Vol]139 mmol/Z054-302JuqvkzqyjSelect Medical [facility] Clinic Rehabilitation Hospital, AvonUrea nitrogen [Mass/Vol]25 mg/dLHigh9-24[facility], AvonLaboratory - Hematology and Cell countson 96-43-2896Qcfeqdhucny (Bld) [#/Vol]0.23 10*3/uL <0.46[facility], AvonImmature granulocytes (Bld) [#/Vol]0.05 10*3/uL<0.10[facility] granulocytes/100 WBC (Bld) 0.6 %[facility], AvonLeukocytes [#/volume] corrected for nucleated erythrocytes in Blood by Automated counon 77-36-2875VMC corrected for nucl RBC Auto (Bld) [#/Vol]Leukocytes [#/volume] corrected for nucleated erythrocytes in Blood by Automated coun3.70-11.00[facility], AvonLymphocytes Auto (Bld) [#/Vol]on 42-43-1238Nbpgpgumako (Bld) [#/Vol] Lymphocytes [#/volume] in Blood by Automated countLow1.00-4.00[facility], AvonLymphocytes/100 WBC Auto (Bld)on 68-00-6483Wmkyquebvoe/100 WBC (Bld)Lymphocytes/100 leukocytes in Blood by Automated countSelect Medical [facility] Clinic Rehabilitation Hospital, AvonMCH Auto (RBC) [Entitic mass]on 12-41-1279XUZ (RBC) [Entitic mass] MCH [Entitic mass] by Automated count26.0-34.0[facility] MCHC Auto (RBC) [Mass/Vol]on 47-88-5532FLZK (RBC) [Mass/Vol]MCHC [Mass/volume] by Automated count30.5-36.0[facility], AvonMCV Auto (RBC) [Entitic vol]on 27-34-6488FLK (RBC) [Entitic vol]MCV [Entitic volume] by Automated count80.0-100.0[facility], AvonMonocytes Auto (Bld) [#/Vol]on 67-93-2554Jjoijdnce (Bld) [#/Vol]Automated blood monocyte count<0.87 [facility] AvonMonocytes/100 WBC Auto (Bld)on 09-10-2024 Monocytes/100 WBC (Bld)Automated monocyte %[facility] Neutrophils Auto (Bld) [#/Vol]on 99-55-7679Hbvlcbtbqsn (Bld) [#/Vol]Neutrophils [#/volume] in Blood by Automated count1.45-7.50[facility] Neutrophils/100 WBC Auto (Bld)on 77-89-0223Xnsrpgiteuw/100 WBC (Bld)Automated neutrophil %[facility], [facility]onNo Panel Informationon 09-10-2024 Estimated GFR (CKD-EPI)101 mL/min/1.73m???>=60[facility] Comment on above:Estimated Glomerular Filtration Rate (eGFR) is calculated using the 2020 CKD-EPI creatinine equation. This equation utilizes serum creatinine, sex, and age as parameters. The creatinine assay has traceable calibration to isotope dilution-mass spectrometry. Refer to KDIGO guidelines for clinical inte rpretation. In patients with unstable renal function, e.g. those with acute kidney injury, the eGFRmay not accurately reflect actual GFR.Nucleated RBC Auto (Bld) [#/Vol]on 74-18-8844Fqywcoemg RBC (Bld) [#/Vol]Nucleated erythrocytes [#/volume] in Blood by Automated count<0.01[facility] Nucleated erythrocytes [Presence] in Blood by Automated counton 09-10-2024 Nucleated RBC Auto Ql (Bld)Nucleated erythrocytes [Presence] in Blood by Automated countSelect Medical [facility] Clinic Rehabilitation Hospital, AvonPlatelet mean volume Auto (Bld) [Entitic vol]on 97-69-2115Hivhwvww mean volume (Bld) [Entitic vol]Platelet mean volume [Entitic volume] in Blood by Automated count9.0-12.7FDelaware County HospitalPlatelets Auto (Bld) [#/Vol]on 13-65-9688Xbcvrmpxy (Bld) [#/Vol] Platelets [#/volume] in Blood by Automated hmojt927-838EsljipuevSelect Medical [facility], AvonProtein [Mass/volume] in Serum or Plasmaon 91-23-8885Nciqxhx [Mass/Vol]Protein [Mass/volume] in Serum or Plasma6.3-8.0[facility], AvonRBC Auto (Bld) [#/Vol]on 21-43-8794MLX (Bld) [#/Vol]Erythrocytes [#/volume] in Blood by Automated count4.20-6.00[facility] Serum or plasma anion gap determinationon 98-64-6150Arbvr gap [Moles/Vol]Serum or plasma anion gap determination8-15[facility] AvonCNPNon 90-85-2303AIGLBfncusSlbfqolil Clinic ClevelandEC 12 lead ECGon 75-90-8796BRK 12 lead ECGCOSHOCTON REGIONAL [place] [address] Electrocardiograph Report Signed Patient: Kodi Rivas MR#: [id number] 0 : 1965 Acct:[id number] Age/Sex: 59 / M ADM Date: 08/29/24 Loc: PS Room: Type: [facility] Attending Dr: Joby Sol DO Ordering Provider: [...] rhythm Normal ECG Confirmed by Beatriz Hernandez ([id number]) on 08/29/2024 11:22:39 PM Referred By: Electronically Signed By: Beatriz Hernandez Transcribed By: MUS Signed By Beatriz Hernandez MD 4 2322Ad[facility] Physician GroupCNOVSPon 64-36-3036FZBMNCZyelgv [facility] ClevelandBasophils Auto (Bld) [#/Vol]on 48-80-3621Tmpllfngw (Bld) [#/Vol]Automated basophil count<0.11[facility] Basophils/100 WBC Auto (Bld)on 49-58-4325Hgjwxdnkt/100 WBC (Bld)Automated basophil %[facility], AvonBlood manual differential comment interpretation narrativeon 07-33-8957Aycyin differential comment Chapin (Bld) [Interp]Blood manual differential comment interpretation narrativeSelect Medical [facility] Clinic Rehabilitation Hospital, AvonCBC W Auto Differential panel (Bld)on 20-86-1101Zdnmbmruf (Bld) [#/Vol]0.04 10*3/uLNINFCincinnati Va Medical CenterBasophils/100 WBC (Bld)0.4 % [facility] Medical CenterDifferential cell count method Nom (Bld)AutoCleveland Clinic Eosinophils (Bld) [#/Vol]0.29 10*3/uLNINFCincinnati Va Medical CenterEosinophils/100 WBC (Bld)3.1 %[facility] CenterErythrocyte distribution width (RBC) [Ratio]12.9 %11.5 - 15.0 %[facility] CenterHematocrit (Bld) [Volume fraction]40.2 %39.0 - 51.0 % [facility] CenterHemoglobin (Bld) [Mass/Vol]13.8 g/dL13.0 - 17.0 g/dLCincinnati Va Medical CenterImmature granulocytes (Bld) [#/Vol]0.04 10*3/uLNINFCincinnati Va Medical Center Immature granulocytes/100 WBC (Bld)0.4 %[facility] CenterInterpretation and review of laboratory resultsAbnormalCleveland ClinicLymphocytes (Bld) [#/Vol] 0.81 10*3/uLLowCincinnati Va Medical CenterLymphocytes/100 WBC (Bld)8.8 %[facility] CenterMCH (RBC) [Entitic mass]30.5 pg26.0 - 34.0 pgCClinton Memorial HospitalHC (RBC) [Mass/Vol] 34.3 g/dL30.5 - 36.0 g/dLOhioHealth Mansfield HospitalV (RBC) [Entitic vol]88.9 fL80.0 - 100.0 fLCkeenan private hospital ClinicMonocytes (Bld) [#/Vol]0.70 10*3/uLNINFCincinnati Va Medical Center Monocytes/100 WBC (Bld)7.6 %[facility] CenterNeutrophils (Bld) [#/Vol]7.35 10*3/uLCincinnati Va Medical CenterNeutrophils/100 WBC (Bld)79.7 %[facility] CenterNucleated RBC (Bld) [#/Vol]NINFClevelMorrow County HospitalNucleated RBC/100 WBC (Bld) [Ratio]0.0 % /100 WBCCincinnati Va Medical CenterPlatelet mean volume (Bld) [Entitic vol]9.7 fL9.0 - 12.7 fLCkeenan private hospital ClinicPlatelets (Bld) [#/Vol]226 10*3/uLCincinnati Va Medical CenterRBC (Bld) [#/Vol]4.52 10*6/uL4.20 - 6.00 m/[facility] HospitalWBC (Bld) [#/Vol]9.23 10*3/uL [facility] ClinicBasophils (Bld) [#/Vol]0.04 10*3/uLNormal<0.11 [facility] on above:Order Comment: Specimen Type: BLOOD SPECIMENOrdering Facility: [facility] Address:[address] [place], [place] [address]Performed By: #### 87277-4 ####[facility] LABCLIA [id number] [place], [place] [address]Qdbryzgax/100 WBC (Bld)0.4 %NormalAshtabula County Medical Center on above:Order Comment: Specimen Type: BLOOD SPECIMENOrdering Facility: [facility] Address:[address] [place], [place] [address]Performed By: #### 62220-5 ####[facility] LABCLIA [id number] [place], [place] [address]Mdgbqfvocxde cell count method Nom (Bld)AutoNormal [facility] on above:Order Comment: Specimen Type: BLOOD SPECIMENOrdering Facility: [facility] Address:[address] [place], [place] [address]Performed By: #### 16694-8 ####[facility] LABIA [id number] [place], [place] [address]Mgzzmxmazzb (Bld) [#/Vol]0.29 10*3/uLNormal<0.46[facility] on above: Order Comment: Specimen Type: BLOOD SPECIMENOrdering Facility: [facility] Address:[address] [place], [place] [address]Performed By: #### 59199- 8 ####[facility] LABIA [id number] [place], [place] [address]Iuamuofuffx/100 WBC (Bld)3.1 %NormalAshtabula County Medical Center on above:Order Comment: Specimen Type: BLOOD SPECIMENOrdering Facility: [facility] Address:[address] [place] [address]Performed By: #### 07734-0 ####[facility] LABIA [id number] [place], [place] [address]Vzwbvenzhpk distribution width (RBC) [Ratio]12.9 %Ggibbh33.5-15.0[facility] on above: Order Comment: Specimen Type: BLOOD SPECIMENOrdering Facility: [facility] Address:[address] [place], [place] [address]Performed By: #### 73602- 8 ####[facility] LABIA [id number] [place], [place] [address]Tsmfierjoh (Bld) [Volume fraction]40.2 %Fjswvl03.0-51.0 [facility] on above:Order Comment: Specimen Type: BLOOD SPECIMENOrdering Facility: [facility] Address:[address] [place], [place] [address]Performed By: #### 17189-0 ####[facility] LABIA [id number] [place], [place] [address]Npnnxioafx (Bld) [Mass/Vol]13.8 g/yANqcobx70.0-17.0[facility] on above: Order Comment: Specimen Type: BLOOD SPECIMENOrdering Facility: [facility] Address:[address] [place], [place] [address]Performed By: #### 11540- 8 ####[facility] LABIA [id number] [place], [place] [address]Omnudqsh granulocytes (Bld) [#/Vol]0.04 10*3/uLNormal <0.10[facility] on above:Order Comment: Specimen Type: BLOOD SPECIMENOrdering Facility: [facility] Address:[address] [place], [place] [address]Performed By: #### 00893-4 ####[facility] LABIA [id number] [place], [place] [address]Iumdmquz granulocytes/100 WBC (Bld)0.4 %NormalAshtabula County Medical Center on above: Order Comment: Specimen Type: BLOOD SPECIMENOrdering Facility: [facility] Address:[address] [place], [place] [address]Performed By: #### 52236- 8 ####[facility] LABIA [id number] [place], [place] [address]Ejfntmxqzdq (Bld) [#/Vol]0.81 10*3/uLLow1.00-4.00 [facility] on above:Order Comment: Specimen Type: BLOOD SPECIMENOrdering Facility: [facility] Address:[address] [place], [place] [address]Performed By: #### 48462-7 ####[facility] LABIA [id number] [place], [place] [address]Jnkttcxcnbh/100 WBC (Bld)8.8 %NormalAshtabula County Medical Center on above:Order Comment: Specimen Type: BLOOD SPECIMENOrdering Facility: [facility] Address:[address] [place], [place] [address]Performed By: #### 04389-1 ####[facility] LABCLIA [id number] [place], [place] [address]XAP (RBC) [Entitic mass]30.5 nfXtytse34.0-34.0[facility] on above:Order Comment: Specimen Type: BLOOD SPECIMENOrdering Facility: [facility] Address:[address] [place], [place] [address]Performed By: #### 50142-1 ####[facility] LABCLIA [id number] [place], [place] [address]YNVA (RBC) [Mass/Vol]34.3 g/xSCijrzx44.5-36.0[facility] on above: Order Comment: Specimen Type: BLOOD SPECIMENOrdering Facility: [facility] Address:[address] [place], [place] [address]Performed By: #### 46302- 8 ####[facility] LABCLIA [id number] [place], [place] [address]JNU (RBC) [Entitic vol]88.9 vXTtyrzj42.0-100.0[facility] on above:Order Comment: Specimen Type: BLOOD SPECIMENOrdering Facility: [facility] Address:[address] [place], [place] [address]Performed By: #### 92770-9 ####[facility] LABCLIA [id number] [place], [place] [address]Bwbwsljjr (Bld) [#/Vol]0.70 10*3/uLNormal<0.87[facility] on above:Order Comment: Specimen Type: BLOOD SPECIMENOrdering Facility: [facility] Address:[address] [place], [place] [address]Performed By: #### 88990- 8 ####[facility] LABCLIA [id number] [place], [place] [address]Jzzggacce/100 WBC (Bld)7.6 %NormalAshtabula County Medical Center on above:Order Comment: Specimen Type: BLOOD SPECIMENOrdering Facility: [facility] Address:[address] [place], [place] [address]Performed By: #### 68314-9 ####[facility] LABCLIA [id number] [place], [place] [address]Jtwshvcvssy (Bld) [#/Vol]7.35 10*3/uLNormal1.45-7.50[facility] on above:Order Comment: Specimen Type: BLOOD SPECIMENOrdering Facility: [facility] Address:[address] [place], [place] [address]Performed By: #### 89461-5 ####[facility] LABCLIA [id number] [place], [place] [address]Mnfkprwonrg/100 WBC (Bld)79.7 %NormalAshtabula County Medical Center on above:Order Comment: Specimen Type: BLOOD SPECIMENOrdering Facility: [facility] Address:[address] [place], [place] [address]Performed By: #### 94434-0 ####[facility] LABCLIA [id number] [place], [place] [address]Yhdohrsyf RBC (Bld) [#/Vol] 10*3/uLNormal<0.01[facility] on above:Order Comment: Specimen Type: BLOOD SPECIMENOrdering Facility: [facility] Address:[address] [place], [place] [address]Performed By: #### 76567-5 ####[facility] LABCLIA [id number] [place], [place] [address]Wuxylyxfn RBC/100 WBC (Bld) [Ratio]0.0 /100 WBCNormal [facility] on above:Order Comment: Specimen Type: BLOOD SPECIMENOrdering Facility: [facility] Address:[address] [place], [place] [address]Performed By: #### 63384-6 ####[facility] LABCLIA [id number] [place], [place] [address]Mrouwofv mean volume (Bld) [Entitic vol]9.7 fLNormal9.0-12.7COhioHealth Hardin Memorial Hospital on above:Order Comment: Specimen Type: BLOOD SPECIMENOrdering Facility: [facility] Address:[address] [place] [address] Performed By: #### 90274-3 ####[facility] LABCLIA [id number] [place], [place] [address]Jpncknhci (Bld) [#/Vol]226 10*3/xNEusqsp598-620OldchrcrsAshtabula County Medical Center on above:Order Comment: Specimen Type: BLOOD SPECIMENOrdering Facility: [facility] Address:[address] [place], [place] [address]Performed By: #### 67674-0 ####[facility] LABCLIA [id number] [place], [place] [address]FLB (Bld) [#/Vol]4.52 10*6/uLNormal4.20-6.00[facility] on above:Order Comment: Specimen Type: BLOOD SPECIMENOrdering Facility: [facility] Address:[address] [place], [place] [address]Performed By: #### 55463-5 ####[facility] LABCLIA [id number] [place], [place] [address]NZJ (Bld) [#/Vol]9.23 10*3/uLNormal3.70-11.00[facility] on above: Order Comment: Specimen Type: BLOOD SPECIMENOrdering Facility: [facility] Address:[address] [place], [place] [address]Omrsipjtq By: #### 58237- 8 ####[facility] LABCLIA [id number] [place], [place] [address]Uxywwnwvbky/100 WBC Auto (Bld)on 08-20-2024 Eosinophils/100 WBC (Bld)Automated eosinophil %[facility] Erythrocyte distribution width Auto (RBC) [Ratio]on 58-74-3381Muqsnxfjjcp distribution width (RBC) [Ratio]Erythrocyte distribution width [Ratio] by Automated count11.5-15.0[facility]onHematocrit Auto (Bld) [Volume fraction]on 01-35-7362Rqrnwzvjvz (Bld) [Volume fraction]Hematocrit [Volume Fraction] of Blood by Automated count39.0-51.0[facility]onHemoglobin [Mass/volume] in Bloodon 70-44-5879Uqolckpeax (Bld) [Mass/Vol] Hemoglobin [Mass/volume] in Blood13.0-17.0[facility] Laboratory - Hematology and Cell countson 72-04-1296Mamzrsehibu (Bld) [#/Vol] 0.29 10*3/uL<0.46[facility]onImmature granulocytes (Bld) [#/Vol]0.04 10*3/uL<0.10[facility]onIminture granulocytes/100 WBC (Bld)0.4 %[facility], [facility]onLeukocytes [#/volume] corrected for nucleated erythrocytes in Blood by Automated counon 56-00-5800EAL corrected for nucl RBC Auto (Bld) [#/Vol]Leukocytes [#/volume] corrected for nucleated erythrocytes in Blood by Automated coun3.70-11.00 [facility]onLymphocytes Auto (Bld) [#/Vol]on 08-20-2024 Lymphocytes (Bld) [#/Vol]Lymphocytes [#/volume] in Blood by Automated countLow 1.00-4.00[facility]onLymphocytes/100 WBC Auto (Bld)on 89-23-8442Ttemhuhkbyu/100 WBC (Bld)Lymphocytes/100 leukocytes in Blood by Automated countSelect Medical [facility], AvonMCH Auto (RBC) [Entitic mass]on 48-95-1415FOW (RBC) [Entitic mass]MCH [Entitic mass] by Automated count26.0-34.0 [facility], AvonMCHC Auto (RBC) [Mass/Vol]on 44-92-9515BJAK (RBC) [Mass/Vol]MCHC [Mass/volume] by Automated count30.5-36.0[facility]onMCV Auto (RBC) [Entitic vol]on 83-55-6085YHG (RBC) [Entitic vol] MCV [Entitic volume] by Automated count80.0-100.0[facility], AvonMonocytes Auto (Bld) [#/Vol]on 76-03-1205Fjuiphqdd (Bld) [#/Vol]Automated blood monocyte count<0.87[facility]onMonocytes/100 WBC Auto (Bld)on 70-07-3130Puhordbqv/100 WBC (Bld)Automated monocyte %[facility]onNeutrophils Auto (Bld) [#/Vol]on 10-88-1637Rzjktlyaqcy (Bld) [#/Vol]Neutrophils [#/volume] in Blood by Automated count1.45-7.50[facility]onNeutrophils/100 WBC Auto (Bld)on 08-20-2024 Neutrophils/100 WBC (Bld)Automated neutrophil %[facility] Nucleated RBC Auto (Bld) [#/Vol]on 42-32-8621Sblzwinba RBC (Bld) [#/Vol] Nucleated erythrocytes [#/volume] in Blood by Automated count<0.01[facility]onNucleated erythrocytes [Presence] in Blood by Automated counton 36-75-1054Ahqgmxkqn RBC Auto Ql (Bld)Nucleated erythrocytes [Presence] in Blood by Automated countSelect Medical [facility], AvonPlatelet mean volume Auto (Bld) [Entitic vol]on 81-69-8780Cyhjklmf mean volume (Bld) [Entitic vol] Platelet mean volume [Entitic volume] in Blood by Automated count9.0-12.7 [facility], AvonPlatelets Auto (Bld) [#/Vol]on 08-20-2024 Platelets (Bld) [#/Vol]Platelets [#/volume] in Blood by Automated gjgto816-421 [facility], AvonRBC Auto (Bld) [#/Vol]on 25-59-8074CZG (Bld) [#/Vol]Erythrocytes [#/volume] in Blood by Automated count4.20-6.00[facility]onAlbumin [Mass/volume] in Serum or Plasmaon 08-13-2024 Albumin [Mass/Vol]Albumin [Mass/volume] in Serum or Plasma3.43-5.41[facility], AvonB2 Microglob SerPl-mCncon 57-07-2791Fvpf-2-Microglobulin [Mass/Vol]1.7 ug/mLNormal<3.1COhioHealth Hardin Memorial Hospital on above:Order Comment: Specimen Type: BLOOD SPECIMENOrdering Facility: [facility] Address:[address] [place], [place] [address]Result Comment: Beta-2 Microglobulin test is performed using the [employer] immunoturbidimetric method. Results obtained with different methods or kits cannot be used interchangeably.Performed By: #### 2885-2, 3016-3, 1952-1, 2132-9 ####[facility] LABCLIA [id number] [place] [address] [place] OF AMERICABasophils Auto (Bld) [#/Vol]on 76-94-4132Nswjfghqn (Bld) [#/Vol]Automated basophil count<0.11[facility] Basophils/100 WBC Auto (Bld)on 15-49-1551Hznimferp/100 WBC (Bld)Automated basophil %[facility], AvonBlood manual differential comment interpretation narrativeon 46-57-5165Ggomrl differential comment Chapin (Bld) [Interp]Blood manual differential comment interpretation narrativeSelect Medical [facility], AvonCB W Auto Differential panel (Bld)on 17-43-1458Lnqdftoll (Bld) [#/Vol]10*3/uLNormal<0.11COhioHealth Hardin Memorial Hospital on above:Order Comment: Specimen Type: BLOOD SPECIMENOrdering Facility: [facility] Address:[address] [place], [place] [address]Performed By: #### 63590- 8 ####[facility] LABCLIA [id number] [place], [place] [address]Oskfrfmpm/100 WBC (Bld)0.3 %NormalAshtabula County Medical Center on above:Order Comment: Specimen Type: BLOOD SPECIMENOrdering Facility: [facility] Address:[address] [place], [place] [address]Performed By: #### 51751-1 ####[facility] LABCLIA [id number] [place], [place] [address]Movbuyvtsrro cell count method Nom (Bld)AutoNormalCOhioHealth Hardin Memorial Hospital on above:Order Comment: Specimen Type: BLOOD SPECIMENOrdering Facility: [facility] Address:[address] [place], [place] [address]Performed By: #### 01330-4 ####[facility] LABCLIA [id number] [place], [place] [address]Dlizbjqbxtn (Bld) [#/Vol]0.27 10*3/uLNormal<0.46[facility] on above:Order Comment: Specimen Type: BLOOD SPECIMENOrdering Facility: [facility] Address:[address] [place], [place] [address]Performed By: #### 75464-9 ####[facility] LABCLIA [id number] [place], [place] [address]Kuxktyhidky/100 WBC (Bld)3.6 %NormalAshtabula County Medical Center on above:Order Comment: Specimen Type: BLOOD SPECIMENOrdering Facility: [facility] Address:[address] [place], [place] [address]Performed By: #### 27357-5 ####[facility] LABCLIA [id number] [place], [place] [address]Zxcfqynsqgs distribution width (RBC) [Ratio]12.9 %Normal 11.5-15.0[facility] on above:Order Comment: Specimen Type: BLOOD SPECIMENOrdering Facility: [facility] Address:[address] [place], [place] [address]Performed By: #### 34403-7 ####[facility] LABIA [id number] [place] [address] Hematocrit (Bld) [Volume fraction]40.4 %Nytnbl60.0-51.0[facility] on above:Order Comment: Specimen Type: BLOOD SPECIMENOrdering Facility: [facility] Address:[address] [place], [place] [address]Performed By: #### 29843-9 ####[facility] LABIA [id number] [place], [place] [address]Jlvnzbcpuz (Bld) [Mass/Vol]13.7 g/aCSxrabq10.0-17.0[facility] on above:Order Comment: Specimen Type: BLOOD SPECIMENOrdering Facility: [facility] Address:[address] [place], [place] [address]Performed By: #### 57209-8 ####[facility] LABIA [id number] [place], [place] [address]Ywctiuzw granulocytes (Bld) [#/Vol]0.03 10*3/uLNormal <0.10[facility] on above:Order Comment: Specimen Type: BLOOD SPECIMENOrdering Facility: [facility] Address:[address] [place], [place] [address]Performed By: #### 21843-3 ####[facility] LABIA [id number] [place], [place] [address]Escydfqv granulocytes/100 WBC (Bld)0.4 %NormalAshtabula County Medical Center on above: Order Comment: Specimen Type: BLOOD SPECIMENOrdering Facility: [facility] Address:[address] [place], [place] [address]Performed By: #### 15285- 8 ####[facility] LABCLIA [id number] [place], [place] [address]Alqzvxuzkca (Bld) [#/Vol]0.88 10*3/uLLow1.00-4.00 [facility] on above:Order Comment: Specimen Type: BLOOD SPECIMENOrdering Facility: [facility] Address:[address] [place], [place] [address]Performed By: #### 80570-1 ####[facility] LABCLIA [id number] [place], [place] [address]Ohdckmztbix/100 WBC (Bld)11.8 %NormalAshtabula County Medical Center on above:Order Comment: Specimen Type: BLOOD SPECIMENOrdering Facility: [facility] Address:[address] [place], [place] [address]Performed By: #### 29217-5 ####[facility] LABCLIA [id number] [place], [place] [address]CWY (RBC) [Entitic mass]30.4 wcNrxljv60.0-34.0[facility] on above:Order Comment: Specimen Type: BLOOD SPECIMENOrdering Facility: [facility] Address:[address] [place], [place] [address]Performed By: #### 39588-9 ####[facility] LABCLIA [id number] [place], [place] [address]VWDG (RBC) [Mass/Vol]33.9 g/oXCbgyot32.5-36.0[facility] on above: Order Comment: Specimen Type: BLOOD SPECIMENOrdering Facility: [facility] Address:[address] [place], [place] [address]Performed By: #### 68600- 8 ####[facility] LABIA [id number] [place], [place] [address]GFM (RBC) [Entitic vol]89.6 oYElhztj71.0-100.0[facility] on above:Order Comment: Specimen Type: BLOOD SPECIMENOrdering Facility: [facility] Address:[address] [place], [place] [address]Performed By: #### 16695-0 ####[facility] LABCLIA [id number] [place], [place] [address]Wcyjgxrzy (Bld) [#/Vol]0.55 10*3/uLNormal<0.87[facility] on above:Order Comment: Specimen Type: BLOOD SPECIMENOrdering Facility: [facility] Address:[address] [place], [place] [address]Performed By: #### 61853- 8 ####[facility] LABCLIA [id number] [place], [place] [address]Pntqwseyy/100 WBC (Bld)7.4 %NormalAshtabula County Medical Center on above:Order Comment: Specimen Type: BLOOD SPECIMENOrdering Facility: [facility] Address:[address] [place], [place] [address]Performed By: #### 82106-3 ####[facility] LABCLIA [id number] [place], [place] [address]Khmwcjsdksd (Bld) [#/Vol]5.70 10*3/uLNormal1.45-7.50[facility] on above:Order Comment: Specimen Type: BLOOD SPECIMENOrdering Facility: [facility] Address:[address] [place], [place] [address]Performed By: #### 12474-3 ####[facility] LABCLIA [id number] [place], [place] [address]Fquibldbltx/100 WBC (Bld)76.5 %NormalAshtabula County Medical Center on above:Order Comment: Specimen Type: BLOOD SPECIMENOrdering Facility: [facility] Address:[address] [place], [place] [address]Performed By: #### 26745-4 ####[facility] LABCLIA [id number] [place], [place] [address]Fzbjjvjiy RBC (Bld) [#/Vol] 10*3/uLNormal<0.01[facility] on above:Order Comment: Specimen Type: BLOOD SPECIMENOrdering Facility: [facility] Address:[address] [place], [place] [address]Performed By: #### 65327-2 ####[facility] LABCLIA [id number] [place], [place] [address]Gkjzoetlo RBC/100 WBC (Bld) [Ratio]0.0 /100 WBCNormal [facility] on above:Order Comment: Specimen Type: BLOOD SPECIMENOrdering Facility: [facility] Address:[address] [place], [place] [address]Performed By: #### 69806-9 ####[facility] LABIA [id number] [place], [place] [address]Tpbbaipx mean volume (Bld) [Entitic vol]10.1 fLNormal9.0-12.7COhioHealth Hardin Memorial Hospital on above:Order Comment: Specimen Type: BLOOD SPECIMENOrdering Facility: [facility] Address:[address] [place] [address] Performed By: #### 04403-1 ####[facility] LABCLIA [id number] [place], [place] [address]Awwqoiubc (Bld) [#/Vol]219 10*3/uPHvipxw248-976GpwesfucyAshtabula County Medical Center on above:Order Comment: Specimen Type: BLOOD SPECIMENOrdering Facility: [facility] Address:[address] [place], [place] [address]Performed By: #### 21006-6 ####[facility] LABCLIA [id number] [place], [place] [address]ORH (Bld) [#/Vol]4.51 10*6/uLNormal4.20-6.00[facility] on above:Order Comment: Specimen Type: BLOOD SPECIMENOrdering Facility: [facility] Address:[address] [place], [place] [address]Performed By: #### 04137-7 ####[facility] LABCLIA [id number] [place], [place] [address]JQV (Bld) [#/Vol]7.45 10*3/uLNormal3.70-11.00[facility] on above: Order Comment: Specimen Type: BLOOD SPECIMENOrdering Facility: [facility] Address:[address] [place], [place] [address]Performed By: #### 04254- 8 ####[facility] LABCLIA [id number] [place], [place] [address]Vecesox.ionized [Moles/Vol]on 55-26-8125Tohcnkx.ionized (Bld) [Mass/Vol]1.27 mmol/LNormal1.08-1.30[facility] on above:Order Comment: Specimen Type: BLOOD SPECIMENOrdering Facility: [facility] Address:[address] [place], [place] [address]Performed By: #### 1995-0 ####[facility] LABIA [id number] [address] STATES OF THE JEWISH HOSPITALCalcium.ionized adjusted to pH 7.4 (Bld) [Moles/Vol]1.25 mmol/LNormal1.08-1.30[facility] on above:Order Comment: Specimen Type: BLOOD SPECIMENOrdering Facility: [facility] Address:[address] [place], [place] [address]Performed By: #### 1995-0 ####[facility] LABCLIA [id number] [place] [id number] [place] Comprehensive metabolic 2000 panelon 87-84-9274Pmunzkl [Mass/Vol]4.4 g/dLNormal 3.9-4.9COhioHealth Hardin Memorial Hospital on above:Order Comment: Specimen Type: BLOOD SPECIMENOrdering Facility: [facility] Address:[address] [place], [place] [address]Performed By: #### 2532-0, 3084-1, 2776-, ####[facility] LABCLIA [id number] [place], [place] [address]QCH [Catalytic activity/Vol]88 U/OClwwoj18-148KmgfcdoseAshtabula County Medical Center on above:Order Comment: Specimen Type: BLOOD SPECIMENOrdering Facility: [facility] Address:[address] [place], [place] [address]Performed By: #### 2532-0, 3084-1, 2776-10, ####[facility] LABCLIA [id number] [place], [place] [address]DFI [Catalytic activity/Vol]14 U/USsrrok85-66TfmtqznqjAshtabula County Medical Center on above:Order Comment: Specimen Type: BLOOD SPECIMENOrdering Facility: [facility] Address:[address] [place], [place] [address]Performed By: #### 2532-0, 308-1, 2776-10, ####[facility] LABCLIA [id number] [place], [place] [address]Fgeyi gap [Moles/Vol]11 mmol/LNormal8-15[facility] on above:Order Comment: Specimen Type: BLOOD SPECIMENOrdering Facility: [facility] Address:[address] [place], [place] [address]Performed By: #### 2532-0, 3083-1, 2776-10, ####[facility] LABCLIA [id number] [place], [place] [address]CEQ [Catalytic activity/Vol]13 U/HYrs96-54XhjboxgpoAshtabula County Medical Center on above:Order Comment: Specimen Type: BLOOD SPECIMENOrdering Facility: [facility] Address:[address] [place] [id number] By: #### 2532-0, 3084-1, 2776-, ####[facility] LABCLIA [id number] [place], [place] [address]Xsnblepkr [Mass/Vol]0.2 mg/dL Normal0.2-1.3COhio[facility] on above:Order Comment: Specimen Type: BLOOD SPECIMENOrdering Facility: [facility] Address:[address] [place], [place] [id number] By: #### 2532-0, 3084-1, 277-, ####[facility] LABCLIA [id number] [place], [place] [address]Vejield [Mass/Vol]9.2 mg/dLNormal8.5-10.2COhioHealth [facility]in [facility] on above:Order Comment: Specimen Type: BLOOD SPECIMENOrdering Facility: [facility] Address:[address] [place], [place] [id number] By: #### 2532-0, 308-1, 2776-10, ####[facility] LABCLIA [id number] [place], [place] [address]Xwimlrfd [Moles/Vol]105 mmol/QPzskbe58-639MhdnwoqiuAshtabula [facility] on above: Order Comment: Specimen Type: BLOOD SPECIMENOrdering Facility: [facility] Address:[address] [place] [address] 20843Okjtotxgy By: #### 2532- 0, 308-1, 2776-10, 84987-7 ####[facility] LABCLIA [id number] [place], [place] [address]OB1 [Moles/Vol]26 mmol/LNormal 22-30[facility] on above:Order Comment: Specimen Type: BLOOD SPECIMENOrdering Facility: [facility] Address:[address] [place], [place] [address]Performed By: #### 2532-0, 3084-1, 2777-1, 49056-8 ####[facility] LABCLIA [id number] [place], [place] [address]Esopamrvnu [Mass/Vol]1.04 mg/dLNormal0.73-1.22[facility] on above:Order Comment: Specimen Type: BLOOD SPECIMENOrdering Facility: [facility] Address:[address] [place] [address]Yallhomll By: #### 2532-0, 3084-1, 2776-1, 29846-9 ####[facility] LABCLIA [id number] [place], [place] [address]Iydejvipjl and Glomerular filtration rate.predicted panel (S/P/Bld)82 mL/min/1.73m???Normal>=60[facility] on above:Order Comment: Specimen Type: BLOOD SPECIMENOrdering Facility: [facility] Address:[address] [place] [address]Nckpii Comment: Estimated Glomerular Filtration Rate (eGFR) is calculated using the 2020 CKD-EPI creatinine equation. This equation utilizes serum creatinine, sex, and age as parameters. The creatinine assay has traceable calibration to isotope dilution- mass spectrometry. Refer to KDIGO guidelines for clinical interpretation. In patients with unstable renal function, e.g. those with acute kidney injury, the eGFR may not accurately reflect actual GFR.Performed By: #### 2532-0, 3084-1, 2776-, 75161-6 ####[facility] LABCLIA [id number] [place], [place] [address]Fjilcrg [Mass/Vol]123 mg/hWTjhg58-07 [facility] on above:Order Comment: Specimen Type: BLOOD SPECIMENOrdering Facility: [facility] Address:[address] [place] [address]Purvig Comment: The [place] Diabetes Association (ADA) provides guidance for cutoff [...] unequivocal hyperglycemia, results should be confirmed by repeattesting. In a patient with classic symptoms of hyperglycemia or hyperglycemic crisis, random plasmaglucose results greater than or equal to 200 mg/dL meet the criteria for diagnosis of diabetes.Reference: Standards of Medical Care in Diabetes 2016, [place] Diabetes Association. Diabetes Care. 2016.39(Suppl 1).Performed By: #### 2532-0, 3084-1, 7-1, 79639-9 ####[facility] LABCLIA [id number] [place], [place] [address]Jenogvkhg [Moles/Vol]4.4 mmol/L Normal3.7-5.1COhioHealth Hardin Memorial Hospital on above:Order Comment: Specimen Type: BLOOD SPECIMENOrdering Facility: [facility] Address:[address] [place], [place] [address]Performed By: #### 2532-0, 3083-1, 2776-10, ####[facility] LABIA [id number] [place], [place] [address]Duxshgi [Mass/Vol]6.7 g/dLNormal6.3-8.0[facility] on above:Order Comment: Specimen Type: BLOOD SPECIMENOrdering Facility: [facility] Address:[address] [place] [address]Rbggusasa By: #### 2532-0, 3083-1, 2776-, 59408-2 ####[facility] LABCLIA [id number] [place], [place] [address]Wlxmeo [Moles/Vol]142 mmol/YIfgend991-065ToqjzcyzmAshtabula [facility] on above: Order Comment: Specimen Type: BLOOD SPECIMENOrdering Facility: [facility] Address:[address] [place], [place] [address]Performed By: #### 2532- 0, 3084-1, 2777-1, 34358-7 ####[facility] LABCLIA [id number] [place], [place] [address]Xqdb nitrogen [Mass/Vol]24 mg/dL Normal9-24[facility] on above:Order Comment: Specimen Type: BLOOD SPECIMENOrdering Facility: [facility] Address:[address] [place], [place] [address]Performed By: #### 2532-0, 3084-1, 2777-1, 73994- 8 ####[facility] LABCLIA [id number] [place], [place] [address]Stniobmxmyk/100 WBC Auto (Bld)on 08-13-2024 Eosinophils/100 WBC (Bld)Automated eosinophil %[facility] Erythrocyte distribution width Auto (RBC) [Ratio]on 51-08-5664Bqryukxbndd distribution width (RBC) [Ratio]Erythrocyte distribution width [Ratio] by Automated count11.5-15.0[facility], AvonFree testosterone measurement by LC-MS/MSon 88-15-9446Mwyedfkevuwz Free [Mass/Vol]Free testosterone measurement by LC-MS/MS5.00-21.00[facility] Free testosterone percentageon 74-92-2119Wkvvhazpjjvn Free/Testosterone.total [Mass fraction]Free testosterone percentage1.50-4.20[facility], AvonHBV core Ab Ser Qlon 03-70-9163BIB core Ab Ql (S)NegativeNormalNegative [facility] on above:Order Comment: Specimen Type: BLOOD SPECIMENOrdering Facility: [facility] Address:[address] [place], [place] [address]Result Comment: No evidence of current or past infection with Hepatitis B virus. Should recent infection be suspected, repeat testing may be considered 3-4 weeks after this draw.Performed By: #### 39489-3, 5195-3, 42733-9 ####[facility] LABCLIA [id number] [address]ES[address] STATES OF AMERICAHBV surface Ab Ql (S)on 70-85-2929LUN surface Ab Qn (S)<8.00NormalCOhioHealth Hardin Memorial Hospital on above:Order Comment: Specimen Type: BLOOD SPECIMENOrdering Facility: [facility] Address:[address] [place], [place] [address]Result Comment: <8 mIU/mL: No serological evidence of immunity to Hepatitis B Virus.>/= 8 to <12 mIU/mL: No serological evidence of immunity to Hepatitis B Virus.>/= 12 mIU/mL: Consistentwith serological evidence of immunity to Hepatitis B Virus.Performed By: #### 65874-2, 5195-3, 47269-6 ####[facility] LABIA [id number] [address] [place] HBV surface Ab Ser Qlon 20-59-5626ECY surface Ab Ql (S)NegativeNormalCOhioHealth Hardin Memorial Hospital on above:Order Comment: Specimen Type: BLOOD SPECIMENOrdering Facility: [facility] Address:[address] [place], [place] [address]Result Comment: No serological evidence of immunity to Hepatitis B Virus.Performed By: #### 96075-3, 5195-3, 84190-4 ####[facility] LABIA [id number] [address] [place] AMERICAHBV surface Ag Ser Qlon 18-56-7803PXO surface Ag Ql (S)NegativeNormalNegativeAs[facility] on above:Order Comment: Specimen Type: BLOOD SPECIMENOrdering Facility: [facility] Address:[address] [place], [place] [address]Performed By: #### 60743- 2, 5195-3, 41239-0 ####[facility] LABIA [id number] [address] [place] AMERICAHCV Ab Ser Qlon 90-97-4251XBI Ab Ql (S)NegativeNormalNegativeAs[facility] on above:Order Comment: Specimen Type: BLOOD SPECIMENOrdering Facility: [facility] Address:[address] [facility], [place] [id number] Comment: The result suggests no evidence of active infection with Hepatitis C virus. Should recent infection be suspected, repeat testing may be considered 4- 6 weeks after this draw.Performed By: #### 68792-6 ####[facility] LABCLIA [id number] [facility] MILWAUKEEDESK [id number] [place] [address] [place] AMERICAHematocrit Auto (Bld) [Volume fraction]on 22-10-6542Zocnhqmnqi (Bld) [Volume fraction]Hematocrit [Volume Fraction] of Blood by Automated count 39.0-51.0[facility], AvonHemoglobin [Mass/volume] in Bloodon 21-80-4157Pnhoizvniv (Bld) [Mass/Vol]Hemoglobin [Mass/volume] in Blood13.0-17.0 [facility], AvonHepatitis B virus surface Ab [Presence] in Serumon 50-31-7699IPI surface Ab Ql (S)Hepatitis B virus surface Ab [Presence] in OhioHealthComment on above:No serological evidence of immunity to Hepatitis B Virus.Hepatitis B virus surface Ab [Units/volume] in Serumon 90-25-6507OSO surface Ab Qn (S)Hepatitis B virus surface Ab [Units/volume] in OhioHealthComment on above:<8 mIU/mL: No serological evidence of immunity to Hepatitis B Virus. >/= 8 to <12 mIU/mL: No serological evidence of immunity to Hepatitis B Virus. >/= 12 mIU/mL: Consistent with serological evidence of immunity to Hepatitis B Virus. Hepatitis B virus surface Ag [Presence] in Serum or Plasma by Immunoassayon 23-75-0793DAP surface Ag IA QlHepatitis B virus surface Ag [Presence] in Serum or Plasma by ImmunoassayNegativeSelect [facility], AvonIMMUNOFIXATION SCREEN, SERUMon 13-16-9716AQYHNBVQWBALWZ (MPA)Atypical restricted bands are present in the IgM and kappa regions. Consistent with IgM kappa monoclonal gammopathy.NormalSt. Vincent HospitalComment on above:Order Comment: Specimen Type: BLOOD SPECIMENOrdering Facility: [facility] Address:[address] [place], [place] [address]Performed By: #### IFESC ####[facility] LABIA [id number] [place] [address] [place] AMERICAMPA RESULTM protein is present. AbnormalNo M protein is identified.[facility] on above: Order Comment: Specimen Type: BLOOD SPECIMENOrdering Facility: [facility] Address:[address] [place], [place] [address]Performed By: #### IFESC ####[facility] LABIA [id number] [place] [address] [place] AMERICASTAFF REVIEW ([facility])Reviewed by Morales JackOhioHealth Hardin Memorial Hospital on above:Order Comment: Specimen Type: BLOOD SPECIMENOrdering Facility: [facility] Address:[address] [place], [place] [address]Performed By: #### IFESC ####[facility] LABIA [id number] [place] [address] [place] AMERICAIMMUNOGLOBULINS,IGG,IGA,IGMon 35-07-9668DcV [Mass/Vol]93 mg/tXIsduyn88-742UflscgmyiAshtabula [facility] Medical Center on above:Order Comment: Specimen Type: BLOOD SPECIMENOrdering Facility: [facility] Address:[address] [place], [place] [address]Performed By: #### SERIMM ####[facility] LABIA [id number] [place] [id number] [place] AMERICAIgG [Mass/Vol]627 mg/dL Vfq680-6798YwcbwwdteAshtabula County Medical Center on above:Order Comment: Specimen Type: BLOOD SPECIMENOrdering Facility: [facility] Address:[address] [place], [place] [address]Performed By: #### SERIMM ####[facility] LABIA [id number] [place] [id number] [place] AMERICAIgM [Mass/Vol]108 mg/bHVhjyij30-976ZkvfgochgSt. Vincent HospitalComment on above:Order Comment: Specimen Type: BLOOD SPECIMENOrdering Facility: [facility] Address:[address] [place], [place] [address]Performed By: #### SERIMM ####[facility] LABCLIA [id number] [facility]ICAL CENTERROBERT [id number] [place] IgA [Mass/volume] in Serum or Plasmaon 75-16-2937JfG [Mass/Vol]IgA [Mass/volume] in Serum or Njofgq19-456DlmeezmrbSelect Medical [facility] Clinic [facility] Hospital, AvonIgG [Mass/volume] in Serum or Plasmaon 80-51-6100BuC [Mass/Vol]IgG [Mass/volume] in Serum or Plasma Mqq006-6594VualgpvdxSelect Medical [facility] Clinic [facility] Hospital, AvonIgM [Mass/volume] in Serum or Plasma on 63-43-9417ZjP [Mass/Vol]IgM [Mass/volume] in Serum or Zyjyef07-071CgjrwhbwuSelect Medical [facility], AvonImmunoglobulin light chains.kappa.free [Mass/volume] in Serumon 70-11-8892Hnrujlkxhjbrea light chains.kappa.free (S) [Mass/Vol] Immunoglobulin light chains.kappa.free [Mass/volume] in Serum3.3-19.4FDelaware County HospitalCommymichigan medical center [place] on above:Rarely, increased serum free light chains levels may not be detected or accurately quantified due to prozone phenomenon or in high viscosity samples using this immunoturbidimetric assay. Correlation with other laboratory results and clinical findings is recommended. The [place] Free Light Chain was performed using the Binding Site Optilite immunoturbidimetric method. Result obtained with different assay methods or kits cannot be used interchangeably.Immunoglobulin light chains.kappa.free/Immunoglobulin light chains.lambda.free [Penny 08-13-2024 Immunoglobulin light chains.kappa.free/Immunoglobulin light chains.lambda.free (S) [Mass ratio]Immunoglobulin light chains.kappa.free/Immunoglobulin light chains.lambda.free [Mass0.26-1.65[facility], AvonImmunoglobulin light chains.lambda.free [Mass/volume] in Serum or Plasmaon 08-13-2024 Immunoglobulin light chains.lambda.free [Mass/Vol]Immunoglobulin light chains.lambda.free [Mass/volume] in Serum or Plasma5.7-26.3FDelaware County HospitalComment on above:Rarely, increased serum free light chains levels may not be detected or accurately quantified due to prozone phenomenon or in high viscosity samples using this immunoturbidimetric assay. Correlation with other laboratory results and clinical findings is recommended. The Lambda Free Light Chain was performed using the Binding Site Optilite immunoturbidimetric method. Result obtained with differentassay methods or kits cannot be used interchangeably.KAPPA/KING,FREE,SERon 85-23-4845Awncfoxrutahqx light chains.kappa.free (S) [Mass/Vol]16.2 mg/LNormal3.3-19.4CUniversity Hospitals Elyria Medical CenterCommymichigan medical center [place] on above:Order Comment: Specimen Type: BLOOD SPECIMENOrdering Facility: [facility] Address:[address] [place], [place] [address]Result Comment: Rarely, increased serum free light chains levels may not be detected or accurately quantified due to prozone phenomenon or in high viscosity samples using this immunoturbidimetric assay. Correlation with other laboratory results and clinical findings is recommended.The [place] Free Light Chain was performed using the Binding Site Optilite immunoturbidimetric method. Result obtained with different assay methods or kits cannot be used interchangeably.Performed By: #### KLFRS ####[facility] LABIA [id number] [place] [address] [place] AMERICAImmunoglobulin light chains.kappa/Immunoglobulin light chains.lambda (S) [Mass ratio]1.55Kqagak5.26-1.65St. Vincent HospitalCommymichigan medical center [place] on above:Order Comment: Specimen Type: BLOOD SPECIMENOrdering Facility: [facility] Address:[address] [place], [place] [address]Performed By: #### KLFRS ####[facility] LABCLIA [id number] [facility] [address] [address] [place] AMERICAImmunoglobulin light chains.lambda.free [Mass/Vol]10.3 mg/LNormal5.7-26.3CUniversity Hospitals Ely[facility] Center Comment on above:Order Comment: Specimen Type: BLOOD SPECIMENOrdering Facility: [facility] Address:[address] [place] [address]Pgubqi Comment: Rarely, increased serum free light chains levels may not be detected or accurately quantified due to prozone phenomenon or in high viscosity samples using this immunoturbidimetric assay. Correlation with other laboratory results and clinical findings is recommended.The Lambda Free Light Chain was performed using the Binding Site Optilite immunoturbidimetric method. Result obtainedwith different assay methods or kits cannot be used interchangeably.Performed By: #### KLFRS ####[facility] LABCLIA [id number] [place] [address] [place] THE JEW[facility] HOSPITALLD SerPl-cCncon 56-99-1263XFA [Catalytic activity/Vol]138 U/FAnivva459-541EypzwefbxSt. Vincent HospitalComment on above:Order Comment: Specimen Type: BLOOD SPECIMENOrdering Facility: [facility] Address:[address] [place], [place] [address]Performed By: #### 2532-0, 3084-1, 2777-1, 98473-3 ####[facility] LABCLIA [id number] [place] [address] Laboratory - Chemistry and Chemistry - challengeon 31-97-1739Hjggoji [Mass/Vol] 4.4 g/dL3.9-4.9[facility] AvonALP [Catalytic activity/Vol]88 U/N58-393BhwtksqlnSelect Medical [facility], AvonALT [Catalytic activity/Vol]14 U/L 10-54[facility]onAST [Catalytic activity/Vol]13 U/ATyl01-82 [facility], AvonBilirubin [Mass/Vol]0.2 mg/dL0.2-1.3FDelaware County HospitalCalcium [Mass/Vol]9.2 mg/dL8.5-10.2FDelaware County HospitalChloride [Moles/Vol]105 mmol/W45-307DpytdieimSelect Medical [facility] Clinic Rehabilitation Hospital, AvonCO2 [Moles/Vol]26 mmol/U44-24SbzfoyqnqSelect Medical [facility] Clinic Rehabilitation Hospital, AvonCobalamin (Vitamin B12) [Mass/Vol]550 pg/aR268-7054WjwzcegbrSelect Medical [facility] Clinic [facility], [place] Creatinine [Mass/Vol]1.04 mg/dL0.73-1.22[facility], AvonGlucose [Mass/Vol]123 mg/aKRfel43-29JohwyvmlxSelect Medical [facility] Clinic Rehabilitation Hospital, AvonComment on above: The [place] Diabetes Association (ADA) provides guidance for cutoff [...] diabetes.Reference: Standardsof Medical Care in Diabetes 2016, [place] Diabetes Association. Diabetes Care. 2016.39(Suppl 1).LDH [Catalytic activity/Vol]138 U/E251-999QwexmpeguSelect Medical [facility] Clinic Rehabilitation Hospital, AvonPotassium [Moles/Vol]4.4 mmol/L3.7-5.1FDelaware County HospitalProtein [Mass/Vol]0.00 g/dL<=0.00Sheltering Arms Hospitalodium [Moles/Vol]142 mmol/I035-740ZogsabyshSelect Medical [facility] Clinic Rehabilitation Hospital, AvonTSH Qn0.520 m[IU]/L 0.270-4.200[facility], AvonUrate [Mass/Vol]5.8 mg/dL4.0-8.1 [facility], AvonUrea nitrogen [Mass/Vol]24 mg/dL9-24[facility], AvonLaboratory - Hematology and Cell countson 08-13-2024 Eosinophils (Bld) [#/Vol]0.27 10*3/uL<0.46[facility] Immature granulocytes (Bld) [#/Vol]0.03 10*3/uL<0.10[facility], AvonImmature granulocytes/100 WBC (Bld)0.4 %[facility] Leukocytes [#/volume] corrected for nucleated erythrocytes in Blood by Automated counon 99-99-9948AMM corrected for nucl RBC Auto (Bld) [#/Vol]Leukocytes [#/volume] corrected for nucleated erythrocytes in Blood by Automated coun 3.70-11.00[facility], AvonLymphocytes Auto (Bld) [#/Vol]on 40-35-1515Jcetkdyulnd (Bld) [#/Vol]Lymphocytes [#/volume] in Blood by Automated countLow1.00-4.00[facility], AvonLymphocytes/100 WBC Auto (Bld) on 62-84-1348Cjvaidjcsqi/100 WBC (Bld)Lymphocytes/100 leukocytes in Blood by Automated countWilson HealthH Auto (RBC) [Entitic mass]on 88-39-8998IGQ (RBC) [Entitic mass]MCH [Entitic mass] by Automated count26.0-34.0 [facility], AvonMCHC Auto (RBC) [Mass/Vol]on 40-03-7235HPCJ (RBC) [Mass/Vol]MCHC [Mass/volume] by Automated count30.5-36.0[facility], AvonMCV Auto (RBC) [Entitic vol]on 33-74-6028XEQ (RBC) [Entitic vol] MCV [Entitic volume] by Automated count80.0-100.0[facility], AvonMonocytes Auto (Bld) [#/Vol]on 57-74-9122Dqyqopgls (Bld) [#/Vol]Automated blood monocyte count<0.87[facility], AvonMonocytes/100 WBC Auto (Bld)on 41-49-6949Whocjvhac/100 WBC (Bld)Automated monocyte %[facility], AvonNeutrophils Auto (Bld) [#/Vol]on 47-90-9307Esokafukvbt (Bld) [#/Vol]Neutrophils [#/volume] in Blood by Automated count1.45-7.50[facility], AvonNeutrophils/100 WBC Auto (Bld)on 08-13-2024 Neutrophils/100 WBC (Bld)Automated neutrophil %[facility] No Panel Informationon 04-14-4566Vmnpftcun GFR (CKD-EPI)82 mL/min/1.73m???>=60 [facility], AvonComment on above:Estimated Glomerular Filtration Rate (eGFR) is calculated using the 2020 CKD-EPI creatinine equation. This equation utilizes serum creatinine, sex, and age as parameters. The creatinine assay has traceable calibration to isotope dilution-mass spectrometry. Refer to KDIGO guidelines for clinical interpretation. In patients with unstable renal function, e.g. those with acute kidney injury, the eGFRmay not accurately reflect actual GFR.Hepatitis B Core Total Antibody.Negative NegativeSelect Medical Cleveland Clinic Rehabilitation Hospital, AvonComment on above:No evidence of current or past infection with Hepatitis B virus. Should recent infection be suspected, repeat testing may be considered 3-4 weeks after this draw.Immunofixation InterpretationSelect Medical Cleveland Clinic Rehabilitation Hospital, AvonIonized Calcium (pH Adjusted)1.25 mmol/L1.08-1.30[facility], AvonLeuk/Lymph Sign Pathologist (Misc)Reviewed by Juliane Bonner MDSelect Medical [facility] [place] Miscellaneous Test 6See commentSelect Medical Cleveland Clinic Rehabilitation Hospital, AvonComment on above:Not Applicable.Miscellaneous Test CommentReviewed by Juliane Bonner MD [facility], AvonPhosphorus Level3.4 mg/dL2.7-4.8[facility], AvonProtein Electrophoresis NoteNo definitive M protein is identified on protein electrophoresis.No definitive M protein is identified on protein electrophoresis.Sheltering Arms Hospitalerum ImmunofixationM protein is present.AbnormalNo M protein is identified.[facility], AvonTestosterone Kldgx398.2 ng/dL264.0-916.0[facility] Comment on above:This [facility] LC/MS-MS method is currently certified by the CDCHormone Standardization Program (HoSt). Adult male referenceinterval is based on a population of healthy nonobese males(BMI <30) between 19 and 39 years old. Sofia, et.al. EANH8016,102;7215-2909. PMID: [id number].Nucleated RBC Auto (Bld) [#/Vol]on 78-90-9269Ygwspglsz RBC (Bld) [#/Vol]Nucleated erythrocytes [#/volume] in Blood by Automated count<0.01[facility] Nucleated erythrocytes [Presence] in Blood by Automated counton 08-13-2024 Nucleated RBC Auto Ql (Bld)Nucleated erythrocytes [Presence] in Blood by Automated countSelect Medical Cleveland Clinic Rehabilitation Hospital, AvonPROTEIN ELECTROPHORESIS SERUM (P)on 43-36-5241Zgtidyh [Mass/Vol]4.33 g/dLNormal3.43-5.41[facility] on above:Order Comment: Specimen Type: BLOOD SPECIMENOrdering Facility: [facility] Address:[address] [place], [place] [address]Performed By: #### [id number] ####[facility] LABIA [id number] [place] [address] [place] Alpha 1 globulin Elph [Mass/Vol]0.32 g/dLNormal0.18-0.43St. Vincent HospitalComment on above:Order Comment: Specimen Type: BLOOD SPECIMENOrdering Facility: [facility] Address:[address] [place], [place] [address]Performed By: #### [id number] ####[facility] LABIA [id number] [place] [address] [place] Alpha 2 globulin Elph [Mass/Vol]0.70 g/dLNormal0.42-0.98St. Vincent HospitalCommymichigan medical center [place] on above:Order Comment: Specimen Type: BLOOD SPECIMENOrdering Facility: [facility] Address:[address] [place], [place] [address]Performed By: #### [id number] ####[facility] LABIA [id number] [place] [address] [place] Beta globulin Elph [Mass/Vol]0.72 g/dLNormal0.61-1.17[facility] Comment on above:Order Comment: Specimen Type: BLOOD SPECIMENOrdering Facility: [facility] Address:[address] [place] [address] Performed By: #### [id number] ####[facility] LABIA [id number] [place] [address] [place] Gamma globulin Elph [Mass/Vol]0.53 g/dLNormal0.53-1.51[facility] Comment on above:Order Comment: Specimen Type: BLOOD SPECIMENOrdering Facility: [facility] Address:[address] [place] [address] Performed By: #### [id number] ####[facility] LABCLIA [id number] [place] [address] [place] M-PROTEIN LOCATIONVan [facility]ert County Hospital on above:Order Comment: Specimen Type: BLOOD SPECIMENOrdering Facility: [facility] Address:[address] [place], [place] [address]Result Comment: Not Applicable.Performed By: #### [id number] ####[facility] LABCLIA [id number] [place] [address] [place] Protein Fractions [Interp]No definitive M protein is identified on protein electrophoresis.NormalNo definitive M protein is identified on protein electrophoresis.[facility] on above:Order Comment: Specimen Type: BLOOD SPECIMENOrdering Facility: [facility] Address:[address] [place], [place] [address]Performed By: #### [id number] ####[facility] LABIA [id number] [place] [address] [place] AMERICAProtein.monoclonal Elph [Mass/Vol]0.00 g/dLNormal<=0.00[facility] on above:Order Comment: Specimen Type: BLOOD SPECIMENOrdering Facility: [facility] Address:[address] [place], [place] [address]Performed By: #### [id number] ####[facility] LABCLIA [id number] [address] STATES OF THE JEWISH HOSPITALSPE STAFF REVIEW Reviewed by Juliane Bonner MDVan Wert County Hospital on above: Order Comment: Specimen Type: BLOOD SPECIMENOrdering Facility: [facility] Address:[address] [place], [place] [address]Performed By: #### [id number] ####[facility] LABCLIA [id number] [place] [id number] [place] OF AMERICAPhosphate SerPl-mCncon 23-56-2426Eoaisrjfp [Mass/Vol]3.4 mg/dLNormal2.7-4.8CUniversity [facility] Comment on above:Order Comment: Specimen Type: BLOOD SPECIMENOrdering Facility: [facility] Address:[address] [place], [place] [address] Performed By: #### 2532-0, 3084-1, 2777-1, 52032-6 ####[facility] LABCLIA [id number] [place], [place] [address]Ngbbmubr mean volume Auto (Bld) [Entitic vol]on 00-65-2886Etafwodk mean volume (Bld) [Entitic vol]Platelet mean volume [Entitic volume] in Blood by Automated count 9.0-12.7FDelaware County HospitalPlatelets Auto (Bld) [#/Vol]on 72-89-1658Ozneoeqtp (Bld) [#/Vol]Platelets [#/volume] in Blood by Automated hyiby102-501KoxrcltmkSelect Medical [facility] Clinic [facility] Hospital, AvonProt SerPl-mCncon 73-45-0238Vdfegjq [Mass/Vol]6.6 g/dLNormal6.3-8.0[facility] HospitalComment on above:Order Comment: Specimen Type: BLOOD SPECIMENOrdering Facility: [facility] Address:[address] [place], [place] [address]Performed By: #### 2885- 2, 3016-3, 1951-1, 2131-9 ####[facility] LABIA [id number] [place] [address] [place] AMERICAProtein [Mass/volume] in Serum or Plasmaon 54-38-0317Qkbveld [Mass/Vol]Protein [Mass/volume] in Serum or Plasma6.3-8.0[facility] Quantitative serum viscosity measurementon 60-19-1211Qdirkcuya (S) [Visc] Quantitative serum viscosity measurement<=1.50[facility] Comment on above:INTERPRETIVE INFORMATION: Viscosity, SerumIncreased viscosity is associated with disorders such as monoclonal gammopathy, macroglobulinemia, and multiple myeloma. Significantly elevated viscosity (>3.0 cP) is associated with clinical symptoms of hyperviscosity syndrome.This test was developed and its performance characteristics determined by [employer]. It has not been cleared or approved by the [place] Food and Drug Administration. This test was performed in a CLIA certified laboratory and is intended for clinical purposes.Performed By: [address] [place] [address]Zcpcmftktd Director: Donald Banda MD, PhDCLIA Number: [id number] Auto (Bld) [#/Vol]on 40-37-4591BYJ (Bld) [#/Vol]Erythrocytes [#/volume] in Blood by Automated count4.20-6.00[facility]tering Arms HospitalERUM VISCOSITYon 53-80-3561LHDGIVHGQ, SERUM1.09 cPNormal<=1.50[facility] HospitalComment on above:Order Comment: Specimen Type: BLOOD SPECIMENOrdering Facility: [facility] Address:[address] [place], [place] [address]Result Comment: INTERPRETIVE INFORMATION: Viscosity, SerumIncreased viscosity is associated with disorders such asmonoclonal gammopathy, macroglobulinemia, and multiple myeloma.Significantly elevatedviscosity (>3.0 cP) is associated withclinical symptoms of hyperviscosity syndrome.This test wasdeveloped and its performance characteristicsdetermined by [employer]. It has not been cleared orapproved by the US Food and Drug Administration. This test wasperformed in a CLIA certified laboratory and is intended forclinical purposes.Performed By: [facility] [address] [place] [address]Odeqfpjlga Director: Donald Banda MD, PhDCLIA Number: [id number] Performed By: #### SERVIS ####[facility] [id number] [place], [place] [address]Ugexd ionized calcium measurement using ion specific electrode (mass/volume)on 82-47-4716Xeywvjj.ionized ISE [Mass/Vol]Serum ionized calcium measurement using ion specific electrode (mass/volume)1.08-1.30[facility]tering Arms Hospitalerum or plasma alpha 1 globulin measurement by electrophoresis (mass/volume)on 04-04-1502Zmqzp 1 globulin Elph [Mass/Vol]Serum or plasma alpha 1 globulin measurement by electrophoresis (mass/volume)0.18-0.43 [facility] Hospitalerum or plasma alpha 2 globulin measurement by electrophoresis (mass/volume)on 81-23-4240Wwyeg 2 globulin Elph [Mass/Vol]Serum or plasma alpha 2 globulin measurement by electrophoresis (mass/volume) 0.42-0.98[facility] Hospitalerum or plasma anion gap determinationon 87-79-1519Hzqrd gap [Moles/Vol]Serum or plasma anion gap determination05-22[facility] Hospitalerum or plasma beta globulin measurement by electrophoresis (mass/volume)on 94-35-3398Ptwr globulin Elph [Mass/Vol]Serum or plasma beta globulin measurement by electrophoresis (mass/volume)0.61-1.17[facility] Hospitalerum or plasma dhds-3-tqtifpfkazezo measurement (mass/volume)on 99-74-3001Bypv-2-Microglobulin [Mass/Vol]Serum or plasma ftib-7-zeggjytmvzkxt measurement (mass/volume)<3.1 [facility], AvonComment on above:Beta-2 Microglobulin test is performed using the [employer] immunoturbidimetric method. Results obtained with different methods or kits cannot be used interchangeably.Serum or plasma gamma globulin measurement by electrophoresis (mass/volume)on 08-13-2024 Gamma globulin Elph [Mass/Vol]Serum or plasma gamma globulin measurement by electrophoresis (mass/volume)0.53-1.51[facility] Hospitalerum or plasma hepatitis C virus antibody signal/cutoff ratio by immunoassay (relation 00-70-2323BRB Ab Signal/Cutoff IA [Rel units/Vol]Serum or plasma hepatitis C virus antibody signal/cutoff ratio by immunoassay (relatiNegativeSelect Medical [facility] Clinic Rehabilitation Hospital, AvonComment on above:The result suggests no evidence of active infection with Hepatitis C virus. Should recent infectionbe suspected, repeat testing may be considered 4-6 weeks after this draw.TESTOSTERONE, FREE AND TOTAL, BY EQUILIBRIUM ULTRAFILTRATION MASS SPECTROMETRYon 08-13-2024 Testosterone [Mass/Vol]566.2 ng/kGYevedd310.0-916.0[facility] Comment on above:Order Comment: Specimen Type: BLOOD SPECIMENOrdering Facility: [facility] Address:[address] [place], [place] [address]Result Comment: This [facility] LC/MS-MS method is currently certified by the CDCHormone Standardization Program (HoSt). Adult male referenceinterval is based on a population of healthy nonobese males(BMI <30) between 19 and 39 years old. Sofia et.al. PBVL9634,102;8709-3442. PMID: 52678647.Performed By: #### TFTEST ####[employer] LABCLIA [id number] [place], [place] [address]Itgiptnbqrmj Free [Mass/Vol]17.84 ng/dLNormal5.00-21.00[facility]. [facility] HospitalComment on above:Order Comment: Specimen Type: BLOOD SPECIMENOrdering Facility: [facility] Address:[address] [place], [place] [address]Performed By: #### TFTEST ####[employer] LABCLIA [id number] [place], [place] [address]Plicwjamekkx Free/Testosterone.total [Mass fraction]3.15 %Normal1.50-4.20[facility]. [facility] HospitalComment on above:Order Comment: Specimen Type: BLOOD SPECIMENOrdering Facility: [facility] Address:[address] [place], [place] [address]Performed By: #### TFTEST ####[employer] LABCLIA [id number] [place], [place] [address]ZAA SerPl-aCncon 28-89-5622OLN Qn0.520 m[IU]/LNormal0.270-4.200St. Vincent HospitalCommymichigan medical center sag[facility] on above:Order Comment: Specimen Type: BLOOD SPECIMENOrdering Facility: [facility] Address:[address] [place], [place] [address]Performed By: #### 2885-2, 3016-3, 1951-10, 2132-06 ####[facility] LABCLIA [id number] [place] [address] [place] AMERICAUrate SerPl-mCncon 08-13-2024 Urate [Mass/Vol]5.8 mg/dLNormal4.0-8.1ClevelCritical access hospitalComment on above:Order Comment: Specimen Type: BLOOD SPECIMENOrdering Facility: [facility] Address:[address] [place], [place] [address]Performed By: #### 2532-0, 3084-1, 2777-1, 31858-6 ####[facility] LABCLIA [id number] [place], [place] [address]Bkx B12 SerPl-mCncon 77-98-8857Cawgywybw (Vitamin B12) [Mass/Vol]550 pg/aZGdhdqg139-8929Srpzjylza Clinic ClevelandComment on above:Order Comment: Specimen Type: BLOOD SPECIMENOrdering Facility: [facility] Address:[address] [place], [place] [address]Performed By: #### 2885-2, 3016-3, 1951-10, 2132-06 ####[facility] LABCLIA [id number] [place] [address] [place] AMERICACNOVSPon 68-48-[address]UJGu[address] Vincent HospitalB2 Microglob SerPl-mCncon 07-24-2024 Rrvs-6-Hfrsyuwigdbut [Mass/Vol]1.6 ug/mLNormal<3.1CUniversity [facility] Comment on above:Order Comment: Specimen Type: BLOOD SPECIMENOrdering Facility: [facility] Address:[address] [place], [place] [address]Result Comment: Beta-2 Microglobulin test is performed using the [employer] immunoturbidimetric method. Results obtained with different methods or kits cannot be used interchangeably.Performed By: #### 2885-2, 1951-10 ####[facility] LABCLIA [id number] [address] AVENUEDESK [address] Auto Differential panel (Bld)on 07-24-2024 Basophils (Bld) [#/Vol]0.04 10*3/uLNormal<0.11COhioHealth Hardin Memorial Hospital on above:Order Comment: Specimen Type: BLOOD SPECIMENOrdering Facility: [facility] Address:[address] [place] [address] Performed By: #### 27591-4 ####[facility] LABCLIA [id number] [place], [place] [address]Dglksdxxv/100 WBC (Bld)0.6 % [facility] on above:Order Comment: Specimen Type: BLOOD SPECIMENOrdering Facility: [facility] Address:[address] [place], [place] [address]Performed By: #### 42209-9 ####[facility] LABCLIA [id number] [place] [address] Differential cell count method Nom (Bld)AutoNormalCUniversity Hospitals [facility] Comment on above:Order Comment: Specimen Type: BLOOD SPECIMENOrdering Facility: [facility] Address:[address] [place] [address] Performed By: #### 71990-2 ####[facility] LABCLIA [id number] [place], [place] [address]Vluonsibehe (Bld) [#/Vol]0.34 10*3/uLNormal<0.46[facility] on above:Order Comment: Specimen Type: BLOOD SPECIMENOrdering Facility: [facility] Address:[address] [place], [place] [address]Performed By: #### 27793-3 ####[facility] LABCLIA [id number] [place], [place] [address]Cfnkrqkrrzs/100 WBC (Bld)5.4 %NormalAshtabula County Medical Center on above:Order Comment: Specimen Type: BLOOD SPECIMENOrdering Facility: [facility] Address:[address] [place], [place] [address]Performed By: #### 18711-0 ####[facility] LABIA [id number] [place], [place] [address]Ldhifunsmwn distribution width (RBC) [Ratio]13.3 %Zjsvxn88.5-15.0[facility] on above: Order Comment: Specimen Type: BLOOD SPECIMENOrdering Facility: [facility] Address:[address] [place], [place] [address]Performed By: #### 29126- 8 ####[facility] LABIA [id number] [place], [place] [address]Ckrgxfzfkb (Bld) [Volume fraction]41.3 %Ikubyc22.0-51.0 [facility] on above:Order Comment: Specimen Type: BLOOD SPECIMENOrdering Facility: [facility] Address:[address] [place], [place] [address]Performed By: #### 88310-1 ####[facility] LABIA [id number] [place], [place] [address]Xtsccjavkx (Bld) [Mass/Vol]14.2 g/oNKkulug23.0-17.0[facility] on above: Order Comment: Specimen Type: BLOOD SPECIMENOrdering Facility: [facility] Address:[address] [place], [place] [address]Performed By: #### 66043- 8 ####[facility] LABIA [id number] [place], [place] [address]Ajzcndes granulocytes (Bld) [#/Vol]10*3/uLNormal<0.10 [facility] on above:Order Comment: Specimen Type: BLOOD SPECIMENOrdering Facility: [facility] Address:[address] [place], [place] [address]Performed By: #### 48034-9 ####[facility] LABIA [id number] [place], [place] [address]Mdohjfsq granulocytes/100 WBC (Bld)0.3 %NormalAshtabula County Medical Center on above: Order Comment: Specimen Type: BLOOD SPECIMENOrdering Facility: [facility] Address:[address] [place], [place] [address]Performed By: #### 30397- 8 ####[facility] LABCLIA [id number] [place], [place] [address]Eydhwoxethj (Bld) [#/Vol]0.83 10*3/uLLow1.00-4.00 [facility] on above:Order Comment: Specimen Type: BLOOD SPECIMENOrdering Facility: [facility] Address:[address] [place], [place] [address]Performed By: #### 25201-3 ####[facility] LABCLIA [id number] [place], [place] [address]Ottmvzbydxs/100 WBC (Bld)13.2 %NormalAshtabula County Medical Center on above:Order Comment: Specimen Type: BLOOD SPECIMENOrdering Facility: [facility] Address:[address] [place], [place] [address]Performed By: #### 34552-0 ####[facility] LABCLIA [id number] [place], [place] [address]HXY (RBC) [Entitic mass]30.9 ueFntcrz86.0-34.0[facility] on above:Order Comment: Specimen Type: BLOOD SPECIMENOrdering Facility: [facility] Address:[address] [place], [place] [address]Performed By: #### 77755-5 ####[facility] LABCLIA [id number] [place], [place] [address]BDKQ (RBC) [Mass/Vol]34.4 g/sXPxrjrf37.5-36.0[facility] on above: Order Comment: Specimen Type: BLOOD SPECIMENOrdering Facility: [facility] Address:[address] [place], [place] [address]Performed By: #### 79987- 8 ####[facility] LABCLIA [id number] [place], [place] [address]OYI (RBC) [Entitic vol]90.0 eQTifyoc10.0-100.0[facility] on above:Order Comment: Specimen Type: BLOOD SPECIMENOrdering Facility: [facility] Address:[address] [place], [place] [address]Performed By: #### 13124-9 ####[facility] LABIA [id number] [place], [place] [address]Qkauyiqoh (Bld) [#/Vol]0.53 10*3/uLNormal<0.87[facility] on above:Order Comment: Specimen Type: BLOOD SPECIMENOrdering Facility: [facility] Address:[address] [place], [place] [address]Performed By: #### 90501- 8 ####[facility] LABIA [id number] [place], [place] [address]Sawvwabdl/100 WBC (Bld)8.5 %NormalAshtabula County Medical Center on above:Order Comment: Specimen Type: BLOOD SPECIMENOrdering Facility: [facility] Address:[address] [place], [place] [address]Performed By: #### 44832-7 ####[facility] LABIA [id number] [place], [place] [address]Swmtmjmeuhs (Bld) [#/Vol]4.51 10*3/uLNormal1.45-7.50[facility] on above:Order Comment: Specimen Type: BLOOD SPECIMENOrdering Facility: [facility] Address:[address] [place], [place] [address]Performed By: #### 49463-9 ####[facility] LABIA [id number] [place], [place] [address]Jnacunripdb/100 WBC (Bld)72.0 %NormalAshtabula County Medical Center on above:Order Comment: Specimen Type: BLOOD SPECIMENOrdering Facility: [facility] Address:[address] [place], [place] [address]Performed By: #### 68416-1 ####[facility] LABCLIA [id number] [place], [place] [address]Qpvegbjld RBC (Bld) [#/Vol] 10*3/uLNormal<0.01[facility] on above:Order Comment: Specimen Type: BLOOD SPECIMENOrdering Facility: [facility] Address:[address] [place], [place] [address]Performed By: #### 16747-5 ####[facility] LABCLIA [id number] [place], [place] [address]Mxafndzrj RBC/100 WBC (Bld) [Ratio]0.0 /100 WBCNormal [facility] on above:Order Comment: Specimen Type: BLOOD SPECIMENOrdering Facility: [facility] Address:[address] [place], [place] [address]Performed By: #### 73406-6 ####[facility] LABCLIA [id number] [place], [place] [address]Holdowmm mean volume (Bld) [Entitic vol]9.8 fLNormal9.0-12.7COhioHealth Hardin Memorial Hospital on above:Order Comment: Specimen Type: BLOOD SPECIMENOrdering Facility: [facility] Address:[address] [place] [address] Performed By: #### 62948-0 ####[facility] LABCLIA [id number] [place], [place] [address]Jqqbuvfzf (Bld) [#/Vol]234 10*3/rODhnxpw314-416HqatfqgebAshtabula County Medical Center on above:Order Comment: Specimen Type: BLOOD SPECIMENOrdering Facility: [facility] Address:[address] [place] [id number] By: #### 76059-6 ####[facility] LABCLIA [id number] [place], [place] [address]TGO (Bld) [#/Vol]4.59 10*6/uLNormal4.20-6.00[facility] on above:Order Comment: Specimen Type: BLOOD SPECIMENOrdering Facility: [facility] Address:[address] [place], [place] [address]Performed By: #### 15248-3 ####[facility] LABCLIA [id number] [place], [place] [address]GLJ (Bld) [#/Vol]6.27 10*3/uLNormal3.70-11.00[facility] on above: Order Comment: Specimen Type: BLOOD SPECIMENOrdering Facility: [facility] Address:[address] [place], [place] [address]Performed By: #### 13841- 8 ####[facility] LABCLIA [id number] [place], [place] [address]Psjmmzt.ionized [Moles/Vol]on 97-20-4500Soyhhxb.ionized (Bld) [Mass/Vol]1.22 mmol/LNormal1.08-1.30[facility] on above:Order Comment: Specimen Type: BLOOD SPECIMENOrdering Facility: [facility] Address:[address] [place], [place] [address]Performed By: #### 1995-0 ####[facility] LABCLIA [id number] [place] [address] [place] THE JEWISH HOSPITALCalcium.ionized adjusted to pH 7.4 (Bld) [Moles/Vol]1.20 mmol/LNormal1.08-1.30[facility] on above:Order Comment: Specimen Type: BLOOD SPECIMENOrdering Facility: [facility] Address:[address] [place], [place] [address]Performed By: #### 1995-0 ####[facility] LABCLIA [id number] [address] [facility] Comprehensive metabolic 2000 panelon 84-15-9997Jnznghe [Mass/Vol]4.5 g/dLNormal 3.9-4.9CUniversity Hospitals Elyria Medical CenterComment on above:Order Comment: Specimen Type: BLOOD SPECIMENOrdering Facility: [facility] Address:[address] [place], [place] [address]Performed By: #### 2532-0, 51450-4, 2776- ####[facility] LABCLIA [id number] [place], [place] [address]ATC [Catalytic activity/Vol]92 U/AYazemd04-317ZzqlgphxzAshtabula County Medical Center on above:Order Comment: Specimen Type: BLOOD SPECIMENOrdering Facility: [facility] Address:[address] [place], [place] [address]Performed By: #### 2532-0, 18508-1, 2776- ####[facility] LABCLIA [id number] [place], [place] [address]FQS [Catalytic activity/Vol]21 U/MTpwvqy86-97VvetqxfhySt. Vincent Hospital Comment on above:Order Comment: Specimen Type: BLOOD SPECIMENOrdering Facility: [facility] Address:[address] [place] [address] Performed By: #### 2532-0, 51641-8, 2776- ####[facility] LABCLIA [id number] [place], [place] [address]Ojuwl gap [Moles/Vol] 10 mmol/LNormal8-15[facility] on above:Order Comment: Specimen Type: BLOOD SPECIMENOrdering Facility: [facility] Address:[address] [place], [place] [address]Performed By: #### 2532-0, 00080-0, 2776-1 ####[facility] LABCLIA [id number] [place], [place] [address]HVW [Catalytic activity/Vol]30 U/ESmbohy13-25OvwqvgyajAshtabula County Medical Center on above:Order Comment: Specimen Type: BLOOD SPECIMENOrdering Facility: [facility] Address:[address] [place], [place] [address]Performed By: #### 2532-0, 59318-0, 277-1 ####[facility] LABCLIA [id number] [place], [place] [address]Tpmykplxa [Mass/Vol]0.2 mg/dLNormal0.2-1.3COhioHealth Hardin Memorial Hospital on above:Order Comment: Specimen Type: BLOOD SPECIMENOrdering Facility: [facility] Address:[address] [place] [address] Performed By: #### 2532-0, 72608-8, 277-1 ####[facility] LABCLIA [id number] [place], [place] [address]Brynyln [Mass/Vol]9.6 mg/dLNormal8.5-10.2COhioHealth Hardin Memorial Hospital on above:Order Comment: Specimen Type: BLOOD SPECIMENOrdering Facility: [facility] Address:[address] [place], [place] [address]Performed By: #### 2532-0, 01465-5, 277- ####[facility] LABCLIA [id number] [place], [place] [address]Zgroaifw [Moles/Vol]105 mmol/ZOxxqry66-567DevxakxurAshtabula County Medical Center on above:Order Comment: Specimen Type: BLOOD SPECIMENOrdering Facility: [facility] Address:[address] [place], [place] [address]Performed By: #### 2532-0, 76579-2, 2776- ####[facility] LABCLIA [id number] [place], [place] [address]YB1 [Moles/Vol]26 mmol/NScoqed51-62LxykodlhbAshtabula County Medical Center on above:Order Comment: Specimen Type: BLOOD SPECIMENOrdering Facility: [facility] Address:[address] [place] [address]Ffplubjhw By: #### 2532-0, 75025-9, 2776-10 ####[facility] LABCLIA [id number] [place], [place] [address]Owefxftmzu [Mass/Vol]0.86 mg/dLNormal0.73-1.22[facility] on above:Order Comment: Specimen Type: BLOOD SPECIMENOrdering Facility: [facility] Address:[address] [place] [id number] By: #### 2532-0, 36660-3, 2776-10 ####[facility] LABCLIA [id number] [place], [place] [address]Obshpssknm and Glomerular filtration rate.predicted panel (S/P/Bld)99 mL/min/1.73m???Normal>=60[facility] on above:Order Comment: Specimen Type: BLOOD SPECIMENOrdering Facility: [facility] Address:[address] [place] [id number] Comment: Estimated Glomerular Filtration Rate (eGFR) is calculated using the 2020 CKD-EPI creatinine equation. This equation utilizes serum creatinine, sex, and age as parameters. The creatinine assay has traceable calibration to isotope dilution- mass spectrometry. Refer to KDIGO guidelines for clinical interpretation. In patients with unstable renal function, e.g. those with acute kidney injury, the eGFR may not accurately reflect actual GFR.Performed By: #### 2532-0, 45447-7, 2776-10 ####[facility] LABCLIA [id number] [place], [place] [address]Zziazus [Mass/Vol]132 mg/iZJygt75-82KounmfhiqAshtabula County Medical Center on above:Order Comment: Specimen Type: BLOOD SPECIMENOrdering Facility: [facility] Address:[address] [place] [address]Quqkla Comment: The [place] Diabetes Association (ADA) provides guidance for cutoff values for fasting glucose and random glucose. The ADA defines fasting as no caloric intake for at least 8 hours. Fasting plasma glucose results between 100 to 125 mg/dL indicate increased risk for diabetes (prediab etes).Fasting plasma glucose results greater than or equal to 126 mg/dL meet the criteria for diagnosis of diabetes. In the absence of unequivocal hyperglycemia, results should be confirmed by repeattesting. In a patient with classic symptoms of hyperglycemia or hyperglycemic crisis, random plasmaglucose results greater than or equal to 200 mg/dL meet the criteria for diagnosis of diabetes.Reference: Standards of Medical Care in Diabetes 2016, [place] Diabetes Association. Diabetes Care. 2016.39(Suppl 1).Performed By: #### 2532-0, 97542-8, 2777- ####[facility] LABCLIA [id number] [place], [place] [address]Lkjrioexp [Moles/Vol]4.2 mmol/LNormal3.7-5.1 [facility] on above:Order Comment: Specimen Type: BLOOD SPECIMENOrdering Facility: [facility] Address:[address] [place] [address]Jykcxwwca By: #### 2532-0, 26948-8, 27704-07 ####[facility] LABCLIA [id number] [place], [place] [address]Tekumxv [Mass/Vol]7.0 g/dLNormal6.3-8.0[facility] on above:Order Comment: Specimen Type: BLOOD SPECIMENOrdering Facility: [facility] Address:[address] [place] [address]Whidbnobr By: #### 2532-0, 96466-8, 2776-10 ####[facility] LABCLIA [id number] [place], [place] [address]Zngxfr [Moles/Vol]141 mmol/L Vhpzzl043-745AgpyxkmuxAshtabula County Medical Center on above:Order Comment: Specimen Type: BLOOD SPECIMENOrdering Facility: [facility] Address:[address] [place] [address]Rgecqsbkr By: #### 2532-0, 51474-1, 2777-1 ####[facility] LABCLIA [id number] [place], [place] [address]Piss nitrogen [Mass/Vol]21 mg/dLNormal9-24[facility] on above:Order Comment: Specimen Type: BLOOD SPECIMENOrdering Facility: [facility] Address:[address] [place], [place] [address]Performed By: #### 2532-0, 16667-5, 2777-1 ####[facility] LABCLIA [id number] [place], [place] [address]UYNRVHVQFPZKWB SCREEN, SERUMon 16-18-2827AEVMYYILFBTHCT (MPA)Atypical restricted bands are present in the IgM and kappa regions. Consistent with IgM kappa monoclonal gammopathy.[facility] on above: Order Comment: Specimen Type: BLOOD SPECIMENOrdering Facility: [facility] Address:[address] [place], [place] [address]Performed By: #### IFESC ####[facility] LABCLIA [id number] [place] [address] [place] OF AMERICAMPA RESULTM protein is present. AbnormalNo M protein is identified.[facility] on above: Order Comment: Specimen Type: BLOOD SPECIMENOrdering Facility: [facility] Address:[address] [place], [place] [address]Performed By: #### IFESC ####[facility] LABCLIA [id number] [place] [address] [place] OF AMERICASTAFF REVIEW (MPA)Reviewed by Yajaira Cano M.D.[facility] on above:Order Comment: Specimen Type: BLOOD SPECIMENOrdering Facility: [facility] Address:[address] [place], [place] [address]Performed By: #### IFESC ####[facility] LABCLIA [id number] [place] [address] [place] OF AMERICAIMMUNOGLOBULINS,IGG,IGA,IGMon 57-91-4647IqY [Mass/Vol]89 mg/aOCmojjg97-161QnupujxgzAshtabula County Medical Center on above:Order Comment: Specimen Type: BLOOD SPECIMENOrdering Facility: [facility] Address:[address] [place], [place] [address]Performed By: #### SERIMM ####[facility] LABCLIA [id number] [place] [address] [place] AMERICAIgG [Mass/Vol]606 mg/dL Dfa968-0453VciodindtAshtabula County Medical Center on above:Order Comment: Specimen Type: BLOOD SPECIMENOrdering Facility: [facility] Address:[address] [place], [place] [address]Performed By: #### SERIMM ####[facility] LABCLIA [id number] [place] [address] [place] AMERICAIgM [Mass/Vol]101 mg/eHWkherc23-036FloismxlzAshtabula County Medical Center on above:Order Comment: Specimen Type: BLOOD SPECIMENOrdering Facility: [facility] Address:[address] [place], [place] [address]Performed By: #### SERIMM ####[facility] LABCLIA [id number] [place] [address] [place] KAPPA/KING,FREE,SERon 24-03-9410Kmdbltwuldohpg light chains.kappa.free (S) [Mass/Vol]17.2 mg/LNormal3.3-19.4COhioHealth Hardin Memorial Hospital on above: Order Comment: Specimen Type: BLOOD SPECIMENOrdering Facility: [facility] Address:[address] [place], [place] [address]Result Comment: Rarely, increased serum free light chains levels may not be detected or accurately q uantified due to prozone phenomenon or in high viscosity samples using this immunoturbidimetric assay. Correlation with other laboratory results and clinical findings is recommended.The [place] Free Light Chain was performed using the Binding Site Optilite immunoturbidimetric method. Result obtained with different assay methods or kits cannot be used interchangeably.Performed By: #### KLFRS ####[facility] [id number] [place] [address] [place] AMERICAImmunoglobulin light chains.kappa/Immunoglobulin light chains.lambda (S) [Mass ratio]1.62Normal 0.26-1.65[facility] on above:Order Comment: Specimen Type: BLOOD SPECIMENOrdering Facility: [facility] Address:[address] [place], [place] [address]Performed By: #### KLFRS ####[facility] [id number] [place] [address] [place] AMERICAImmunoglobulin light chains.lambda.free [Mass/Vol]10.6 mg/LNormal5.7-26.3COhioHealth Hardin Memorial Hospital on above:Order Comment: Specimen Type: BLOOD SPECIMENOrdering Facility: [facility] Address:[address] [place], [place] [address]Result Comment: Rarely, increased serum free light chains levels may not be detected or accurately quantified due to prozone phenomenon or in high viscosity samples using this immunoturbidimetric assay. Correlation with other laboratory results and clinical findings is recommended.The [place] Free Light Chain was performed using the Binding Site Optilite immunoturbidimetric method. Result obtainedwith different assay methods or kits cannot be used interchangeably.Performed By: #### KLFRS ####[facility] [id number] [place] [address] [place] AMERICALD SerPl-cCncon 78-04-0037PQL [Catalytic activity/Vol]178 U/NGafabl998-647HbrwuogadAshtabula County Medical Center on above:Order Comment: Specimen Type: BLOOD SPECIMENOrdering Facility: [facility] Address:[address] [place], [place] [address]Result Comment: Hemolysis present. The origin of the hemolysis, in vitro versus an in vivo hemolytic process, cannot be distinguished via this assay alone. In vitro hemolysis may lead to non-physiological (spurious) elevation in lactate dehydrogenase (LDH) results. Theresult should be interpreted in context of the clinical setting and other test results. Suggest reorder as clinically indicated.Performed By: #### 2532-0, 75955-1, 2777-1 ####[facility] LABCLIA [id number] [place], [place] [address]RYRXRKX ELECTROPHORESIS SERUM (P)on 09-26-5722Utxtshs [Mass/Vol]4.43 g/dLNormal3.43-5.41 [facility] HospitalComment on above:Order Comment: Specimen Type: BLOOD SPECIMENOrdering Facility: [facility] Address:[address] [place], [place] [address]Performed By: #### [id number] ####[facility] LABCLIA [id number] [place] [address] [place] AMERICAAlpha 1 globulin Elph [Mass/Vol]0.36 g/dLNormal0.18-0.43St. Vincent HospitalComment on above:Order Comment: Specimen Type: BLOOD SPECIMENOrdering Facility: [facility] Address:[address] [place], [place] [address]Performed By: #### [id number] ####[facility] LABCLIA [id number] [place] [address] [place] Alpha 2 globulin Elph [Mass/Vol]0.74 g/dLNormal0.42-0.98St. Vincent HospitalCommymichigan medical center saginaw on above:Order Comment: Specimen Type: BLOOD SPECIMENOrdering Facility: [facility] Address:[address] [place], [place] [address]Performed By: #### [id number] ####[facility] LABCLIA [id number] [place] [address] [place] Beta globulin Elph [Mass/Vol]0.73 g/dLNormal0.61-1.17[facility] Comment on above:Order Comment: Specimen Type: BLOOD SPECIMENOrdering Facility: [facility] Address:[address] [place], [place] [address] Performed By: #### [id number] ####[facility] LABCLIA [id number] [place] [address] [place] Gamma globulin Elph [Mass/Vol]0.54 g/dLNormal0.53-1.51[facility] Comment on above:Order Comment: Specimen Type: BLOOD SPECIMENOrdering Facility: [facility] Address:[address] [place] [address] Performed By: #### [id number] ####[facility] LABCLIA [id number] [place] [address] [place] M-PROTEIN LOCATIONNormalCOhioHealth Hardin Memorial Hospital on above:Order Comment: Specimen Type: BLOOD SPECIMENOrdering Facility: [facility] Address:[address] [place], [place] [address]Result Comment: Not Applicable.Performed By: #### [id number] ####[facility] LABIA [id number] [place] [address] [place] Protein Fractions [Interp]No definitive M protein is identified on protein electrophoresis.NormalNo definitive M protein is identified on protein electrophoresis.[facility]. Vincent HospitalComment on above:Order Comment: Specimen Type: BLOOD SPECIMENOrdering Facility: [facility] Address:[address] [place], [place] [address]Performed By: #### [id number] ####[facility] LABIA [id number] [place] [address] [place] AMERICAProtein.monoclonal Elph [Mass/Vol]0.00 g/dLNormal<=0.00[facility] on above:Order Comment: Specimen Type: BLOOD SPECIMENOrdering Facility: [facility] Address:[address] [place], [place] [address]Performed By: #### [id number] ####[facility] LABIA [id number] [place] [address] [place] OF AMERICASPE STAFF REVIEW Reviewed by Yajaira Cano M.D.NormalSt. Vincent HospitalComment on above: Order Comment: Specimen Type: BLOOD SPECIMENOrdering Facility: [facility] Address:[address] [place], [place] [address]Performed By: #### [id number] ####[facility] LABCLIA [id number] [place] [address] [place] AMERICAPhosphate SerPl-mCncon 59-39-7619Rzxupnawe [Mass/Vol]3.4 mg/dLNormal2.7-4.8CUniversity [facility]als [facility] Comment on above:Order Comment: Specimen Type: BLOOD SPECIMENOrdering Facility: [facility] Address:[address] [place] [address] Performed By: #### 2532-0, 37811-1, 2777-1 ####[facility] LABCLIA [id number] [place] [id number] SerPl-mCncon 18-27-6162Hkzplpc [Mass/Vol]6.8 g/dLNormal6.3-8.0[facility] Comment on above:Order Comment: Specimen Type: BLOOD SPECIMENOrdering Facility: [facility] Address:[address] [place] [address] Performed By: #### 2885-2, 1952-1 ####[facility] LABCLIA [id number] [address] [place] SERUM VISCOSITYon 14-01-0847KBQWYRFQK, SERUM1.10 cPNormal<=1.50St. [facility] HospitalComment on above:Order Comment: Specimen Type: BLOOD SPECIMENOrdering Facility: [facility] Address:[address] [place], [place] [address]Result Comment: INTERPRETIVE INFORMATION: Viscosity, SerumIncreased viscosity is associated with disorders such asmonoclonal gammopathy, macroglobulinemia, and multiple myeloma.Significantly elevatedviscosity (>3.0 cP) is associated withclinical symptoms of hyperviscosity syndrome.This test was developed and its performance characteristicsdetermined by [employer]. It has not been cleared orapproved by the [place] Food and Drug Administration. This test wasperformed in a CLIA certified laboratory and is intended forclinical purposes.Performed By: [facility] [place], [place] [address]Bfnohvjnat Director: Donald Banda MD, PhDCLIA Number: [id number] Performed By: #### SERVIS ####[facility]IA [id number] [place], [place] [address]Dmoxqjcy Pathologyon 72-06-4326Abgtkguj Pathology [facility]'s HospitalComment on above:Result Comment: [facility] [address] [place] [address] Surgical Pathology Consultation Patient Name:KODI RIVAS:1965 (Age: 59)Gender:MTaken:06/24/2024eported:06/27/2024hysician(s):Mejia Buckner MD ([phone])Copy To: Rec. #:[id number]: #[id number] Final Pathologic Diagnosis Right chest, biopsy: Ruptured epidermal inclusion cyst. Report Electronically Signed Out 06/27/2024Van Sutton MD [place] [address], License number: [id number]. Clinical History Ruptured epidermoid cyst. Gross Description [...] specimen submitted in cassette B. (2, ns, [id number], A???B, m2) JG jmg/06/25/2024EAK Specimen(s) Received Right chest Fee Codes(s): 1; 13414Oitrxiqam Auto (Bld) [#/Vol]on 03-08-7790Rqhvdppso (Bld) [#/Vol]0.1 10 3/uL0.0-0.1FDelaware County HospitalBasophils/100 WBC Auto (Bld)on 15-16-6358Npzaokhtj/100 WBC (Bld)0.7 %0.2-2.0[facility] Cholesterol in LDL Calc [Mass/Vol]on 27-72-1126Uhvisapitxf in LDL [Mass/Vol] 159.0 mg/dLSelect Medical [facility] Clinic Rehabilitation Hospital, AvonComment on above:<100 mg/dl OPAAJWS073-954 mg/dl NEAR OR ABOVE HGMYBAZ386-812 mg/dl BORDERLINE RNQT284-224 mg/dl HIGH>190 mg/dl VERY HIGHCholesterol in VLDL Calc [Mass/Vol]on 06-20-2024 Cholesterol in VLDL [Mass/Vol]13.0 mg/dLSelect Medical [facility] [place] Eosinophils/100 WBC Auto (Bld)on 94-49-0729Tszworigmcp/100 WBC (Bld)5.1 %0.9-7.0 [facility], AvonErythrocyte distribution width Auto (RBC) [Ratio]on 28-69-4452Jrogxlnffnc distribution width (RBC) [Ratio]13.2 %11.0-15.0 [facility], AvonEstimated glomerular filtration rate (GFR) non- Americanon 04-25-1928KPZ/1.73 sq M.predicted among non-blacks MDRD (S/P/Bld) [Vol rate/Area]mL/min/{1.73_m2}>=60[facility] Globulin Calc (S) [Mass/Vol]on 98-75-4214Lpgodvdl (S) [Mass/Vol]3.0 g/dL [facility], AvonGlucose mean value [Mass/volume] in Blood Estimated from glycated hemoglobinon 68-28-2315Wfoadii glucose Estimated from glycated hemoglobin (Bld) [Mass/Vol]120 mg/dLSelect Medical [facility] [place] Hematocrit Auto (Bld) [Volume fraction]on 42-28-7986Qwycoizbug (Bld) [Volume fraction]41.6 %Low42.0-54.0[facility], AvonHemoglobin [Mass/volume] in Bloodon 60-19-5602Armrlaxpdt (Bld) [Mass/Vol]14.0 g/dL14.0-18.0 [facility], AvonLaboratory - Chemistry and Chemistry - challengeon 80-63-1885Tcjolkx [Mass/Vol]3.7 g/dL3.4-5.0[facility], [facility]onALP [Catalytic activity/Vol]92 U/S30-660EkwinaixqSelect Medical [facility], [facility]onALT [Catalytic activity/Vol]30 U/O85-83OhcjrqbetSelect Medical [facility] [place] AST [Catalytic activity/Vol]15 U/U35-34GiqyvncolSelect Medical [facility] [place] Bilirubin [Mass/Vol]0.4 mg/dL0.2-1.0[facility], AvonCalcium [Mass/Vol]8.9 mg/dL8.5-10.1FDelaware County HospitalChloride [Moles/Vol] 105 mmol/F72-491PfqjzrepoSelect Medical [facility], [facility]onCholesterol [Mass/Vol]229 mg/dL High<=200[facility]onCholesterol in HDL [Mass/Vol]57 mg/dL 40-60[facility], AvonComment on above:> or =60 mg/dl - LOW CARDIOVASCULAR RISK<40 mg/dl - HIGH CARDIOVASCULAR RISKCO2 [Moles/Vol]28.2 mmol/L21.0-32.0[facility], [facility]onCreatinine [Mass/Vol]0.82 mg/dL 0.70-1.30[facility], [facility]onGFR/1.73 sq M.predicted MDRD (S/P/Bld) [Vol rate/Area]mL/min/{1.73_m2}>=60[facility], AvonGlucose [Mass/Vol]125 mg/aIAdwt96-782WbydwjqxhSelect Medical [facility] Clinic Rehabilitation [facility], AvonPotassium [Moles/Vol]4.0 mmol/L3.5-5.1FDelaware County HospitalProtein [Mass/Vol] 6.7 g/dL6.4-8.2FBlanchard Valley Health System Blanchard Valley Hospitalodium [Moles/Vol]142 mmol/L 136-145[facility], AvonTriglyceride [Mass/Vol]65 mg/dL<=150 [facility], AvonUrea nitrogen [Mass/Vol]22.0 mg/dLHigh7.0-18.0 [facility], AvonUrea nitrogen/Creatinine [Mass ratio]26.8 mg/mg [facility]onLaboratory - Hematology and Cell countson 11-69-3679EbP0x (Bld) [Mass fraction]5.8 %4.5-6.2FDelaware County HospitalComment on above:ADA RECOMMENDED LIMIT 4.0 - 6.0ADA THERAPEUTIC TARGET < 7.0ACTION SUGGESTED> 7.0Immature granulocytes/100 WBC (Bld)0.3 %0.0-0.5FDelaware County HospitalLeukocytes [#/volume] corrected for nucleated erythrocytes in Blood by Automated counon 23-72-1200XGG corrected for nucl RBC Auto (Bld) [#/Vol]7.3 10 3/uL4.0-11.0[facility] Lymphocytes Auto (Bld) [#/Vol]on 55-81-7504Ujqridjwask (Bld) [#/Vol]1.0 10 3/uL Low1.2-3.8[facility], [facility]onLymphocytes/100 WBC Auto (Bld)on 63-31-9289Agnvdfekcqo/100 WBC (Bld)13.3 %Low20.5-60.0Wilson HealthH Auto (RBC) [Entitic mass]on 60-42-8358ZMJ (RBC) [Entitic mass]30.3 pg 25.9-34.0[facility], AvonMCHC Auto (RBC) [Mass/Vol]on 03-81-6569HXJG (RBC) [Mass/Vol]33.7 g/dL29.9-35.2FDelaware County HospitalMCV Auto (RBC) [Entitic vol]on 89-55-6340SEF (RBC) [Entitic vol]90.0 fL 80.0-94.0[facility] AvonMicroalbumin [Mass/volume] in Urineon 83-55-0278Ixjmgvl DL <= 20 mg/L (U) [Mass/Vol]1.6 mg/dL<=30.0[facility], AvonMonocytes Auto (Bld) [#/Vol]on 51-34-7832Plaoppluq (Bld) [#/Vol] 0.5 10 3/uL0.3-0.8[facility], AvonMonocytes/100 WBC Auto (Bld) on 67-54-6562Gyfkzhogg/100 WBC (Bld)7.0 %1.7-12.0[facility], AvonNeutrophils Auto (Bld) [#/Vol]on 51-89-0716Izahdfsviii (Bld) [#/Vol]5.4 10 3/uL1.4-6.5FDelaware County HospitalNeutrophils/100 WBC Auto (Bld)on 34-31-1112Lqiyzemmkza/100 WBC (Bld)73.6 %43.0-75.0[facility]onNo Panel Informationon 59-25-9559Yrfatnzppkw # (Auto)0.4 10 3/uL0.0-0.7 [facility], AvonImmature Granulocyte # (Auto)0.02 10 3/uL 0.00-0.03[facility], AvonProstate Specific Antigen Screen1.41 ng/mL<=4.00[facility], AvonPlatelet mean volume Auto (Bld) [Entitic vol]on 08-08-1276Bbxgzqvh mean volume (Bld) [Entitic vol]9.9 fL9.5-13.5 [facility], AvonPlatelets Auto (Bld) [#/Vol]on 06-20-2024 Platelets (Bld) [#/Vol]253 10 3/sP031-821JvxywvkbfSelect Medical [facility] Clinic Rehabilitation Hospital, AvonRBC Auto (Bld) [#/Vol]on 58-13-6394OMH (Bld) [#/Vol]4.62 10 6/uLLow4.70-6.10 [facility] Hospitalerum or plasma albumin/globulin mass ratioon 83-52-8141Hmmzhsg/Globulin [Mass ratio]1.2 {ratio}[facility] Hospitalerum or plasma anion gap determinationon 29-92-0658Mzjfo gap [Moles/Vol] 12.8 mmol/LFBlanchard Valley Health System Blanchard Valley Hospitalerum or plasma total cholesterol/high density lipoprotein (HDL) cholesterol mass osman 06-20-2024 Cholesterol.total/Cholesterol in HDL [Mass ratio]4.0 {ratio}[facility], AvonComment on above:3.3 - 4.4 LOW RISK4.4 - 7.1 AVERAGE RISK7.1 - 11.0 MODERATE RISK>11.0 HIGH RISKCNOVSPon 20-61-5222JXOURRDpvkctFesokandu Clinic ClevelandCNPNon 59-54-9200GZVCPgtjtwIkqdycklj Clinic ClevelandAlbumin [Mass/volume] in Serum or Plasmaon 11-14-8608Lzwdfgs [Mass/Vol]4.24 g/dL 3.43-5.41[facility], AvonB2 Microglob SerPl-mCncon 04-17-2024 Jwrk-0-Hrejtefqvladz [Mass/Vol]1.7 ug/mLNormal<3.1CUniversity [facility]als [facility] Comment on above:Order Comment: Specimen Type: BLOOD SPECIMENOrdering Facility: [facility] Address:[address] [place], [place] [address]Result Comment: Beta-2 Microglobulin test is performed using the [employer] immunoturbidimetric method. Results obtained with different methods or kits cannot be used interchangeably.Performed By: #### 1952-1, 2885-2 ####[facility] LABCLIA [id number] [place] [address] [place] AMERICABasophils Auto (Bld) [#/Vol]on 10-84-5938Igzfqnkbh (Bld) [#/Vol]0.03 10*3/uL<0.11[facility], [facility]onBasophils/100 WBC Auto (Bld)on 69-67-8603Ezjamjywt/100 WBC (Bld)0.3 %[facility], AvonBlood manual differential comment interpretation narrativeon 84-57-8013Lhfqtd differential comment Chapin (Bld) [Interp]AutoSelect Medical [facility] Clinic [facility], AvonCBC W Auto Differential panel (Bld)on 99-55-6629Oobushomm (Bld) [#/Vol]0.03 10*3/uLNormal<0.11COhioHealth Hardin Memorial Hospital on above:Order Comment: Specimen Type: BLOOD SPECIMENOrdering Facility: [facility] Address:[address] [place], [place] [address]Performed By: #### 87382- 8 ####[facility] CENTERMANJULA [facility] LABCLIA [id number] [place], [place] [address]Wsorqyrhx/100 WBC (Bld)0.3 %NormalAshtabula County Medical Center on above:Order Comment: Specimen Type: BLOOD SPECIMENOrdering Facility: [facility] Address:[address] [place], [place] [address]Performed By: #### 36403-4 ####[facility] LABCLIA [id number] [place], [place] [address]Rewalbutewet cell count method Nom (Bld)AutoNormalCOhioHealth Hardin Memorial Hospital on above:Order Comment: Specimen Type: BLOOD SPECIMENOrdering Facility: [facility] Address:[address] [place], [place] [address]Performed By: #### 28901-1 ####[facility] LABCLIA [id number] [place], [place] [address]Dgvtnrsvakf (Bld) [#/Vol]0.34 10*3/uLNormal<0.46[facility] on above:Order Comment: Specimen Type: BLOOD SPECIMENOrdering Facility: [facility] Address:[address] [place], [place] [address]Performed By: #### 55853-9 ####[facility] LABCLIA [id number] [place], [place] [address]Vgyddcvyadq/100 WBC (Bld)3.8 %NormalAshtabula County Medical Center on above:Order Comment: Specimen Type: BLOOD SPECIMENOrdering Facility: [facility] Address:[address] [place] [address]Performed By: #### 35646-7 ####[facility] LABCLIA [id number] [place], [place] [address]Jfkccirummh distribution width (RBC) [Ratio]13.2 %Normal 11.5-15.0[facility] on above:Order Comment: Specimen Type: BLOOD SPECIMENOrdering Facility: [facility] Address:[address] [place], [place] [address]Performed By: #### 07449-2 ####[facility] LABIA [id number] [place] [address] Hematocrit (Bld) [Volume fraction]42.1 %Hryujf32.0-51.0[facility] on above:Order Comment: Specimen Type: BLOOD SPECIMENOrdering Facility: [facility] Address:[address] [place], [place] [address]Performed By: #### 52260-8 ####[facility] LABIA [id number] [place], [place] [address]Xdokmssnxt (Bld) [Mass/Vol]14.3 g/qLKcrkap91.0-17.0[facility] on above:Order Comment: Specimen Type: BLOOD SPECIMENOrdering Facility: [facility] Address:[address] [place], [place] [address]Performed By: #### 14753-5 ####[facility] LABIA [id number] [place], [place] [address]Jajagfmb granulocytes (Bld) [#/Vol]0.04 10*3/uLNormal <0.10[facility] on above:Order Comment: Specimen Type: BLOOD SPECIMENOrdering Facility: [facility] Address:[address] [place], [place] [address]Performed By: #### 61102-3 ####[facility] LABIA [id number] [place], [place] [address]Orspnaje granulocytes/100 WBC (Bld)0.4 %NormalAshtabula County Medical Center on above: Order Comment: Specimen Type: BLOOD SPECIMENOrdering Facility: [facility] Address:[address] [place], [place] [address]Performed By: #### 51910- 8 ####[facility] LABCLIA [id number] [place], [place] [address]Rsksrugzzkf (Bld) [#/Vol]0.83 10*3/uLLow1.00-4.00 [facility] on above:Order Comment: Specimen Type: BLOOD SPECIMENOrdering Facility: [facility] Address:[address] [place], [place] [address]Performed By: #### 98348-7 ####[facility] LABCLIA [id number] [place], [place] [address]Daoxqgeadca/100 WBC (Bld)9.3 %NormalAshtabula County Medical Center on above:Order Comment: Specimen Type: BLOOD SPECIMENOrdering Facility: [facility] Address:[address] [place], [place] [address]Performed By: #### 46948-0 ####[facility] LABCLIA [id number] [place], [place] [address]ASA (RBC) [Entitic mass]30.1 iwYnkpky10.0-34.0[facility] on above:Order Comment: Specimen Type: BLOOD SPECIMENOrdering Facility: [facility] Address:[address] [place], [place] [address]Performed By: #### 80647-1 ####[facility] LABCLIA [id number] [place], [place] [address]XKQJ (RBC) [Mass/Vol]34.0 g/xJOxrqlk69.5-36.0[facility] on above: Order Comment: Specimen Type: BLOOD SPECIMENOrdering Facility: [facility] Address:[address] [place], [place] [address]Performed By: #### 20520- 8 ####[facility] LABCLIA [id number] [place], [place] [address]SEL (RBC) [Entitic vol]88.6 eETwdnla53.0-100.0[facility] on above:Order Comment: Specimen Type: BLOOD SPECIMENOrdering Facility: [facility] Address:[address] [place], [place] [address]Performed By: #### 54126-5 ####[facility] LABCLIA [id number] [place], [place] [address]Osjospkdm (Bld) [#/Vol]0.58 10*3/uLNormal<0.87[facility] on above:Order Comment: Specimen Type: BLOOD SPECIMENOrdering Facility: [facility] Address:[address] [place], [place] [address]Performed By: #### 83647- 8 ####[facility] LABCLIA [id number] [place], [place] [address]Lwvflryxi/100 WBC (Bld)6.5 %NormalAshtabula County Medical Center on above:Order Comment: Specimen Type: BLOOD SPECIMENOrdering Facility: [facility] Address:[address] [place], [place] [address]Performed By: #### 57649-7 ####[facility] LABCLIA [id number] [place], [place] [address]Vfyphlnyacx (Bld) [#/Vol]7.09 10*3/uLNormal1.45-7.50[facility] on above:Order Comment: Specimen Type: BLOOD SPECIMENOrdering Facility: [facility] Address:[address] [place], [place] [address]Performed By: #### 72105-2 ####[facility] LABCLIA [id number] [place], [place] [address]Metadfhvtnp/100 WBC (Bld)79.7 %NormalAshtabula County Medical Center on above:Order Comment: Specimen Type: BLOOD SPECIMENOrdering Facility: [facility] Address:[address] [place], [place] [address]Performed By: #### 81018-6 ####[facility] LABCLIA [id number] [place], [place] [address]Bxukhjbqv RBC (Bld) [#/Vol] 10*3/uLNormal<0.01[facility] on above:Order Comment: Specimen Type: BLOOD SPECIMENOrdering Facility: [facility] Address:[address] [place], [place] [address]Performed By: #### 85399-4 ####[facility] LABCLIA [id number] [place], [place] [address]Tjiirsdyh RBC/100 WBC (Bld) [Ratio]0.0 /100 WBCNormal [facility] on above:Order Comment: Specimen Type: BLOOD SPECIMENOrdering Facility: [facility] Address:[address] [place], [place] [address]Performed By: #### 14867-4 ####[facility] LABCLIA [id number] [place], [place] [address]Omfaxbfg mean volume (Bld) [Entitic vol]9.9 fLNormal9.0-12.7COhioHealth Hardin Memorial Hospital on above:Order Comment: Specimen Type: BLOOD SPECIMENOrdering Facility: [facility] Address:[address] [place] [address] Performed By: #### 65376-0 ####[facility] LABCLIA [id number] [place], [place] [address]Nsdtxorpe (Bld) [#/Vol]217 10*3/uJYpgpzx921-841WshlnrdxkAshtabula County Medical Center on above:Order Comment: Specimen Type: BLOOD SPECIMENOrdering Facility: [facility] Address:[address] [place], [place] [address]Performed By: #### 79223-7 ####[facility] LABCLIA [id number] [place], [place] [address]QEZ (Bld) [#/Vol]4.75 10*6/uLNormal4.20-6.00[facility] on above:Order Comment: Specimen Type: BLOOD SPECIMENOrdering Facility: [facility] Address:[address] [place], [place] [address]Performed By: #### 10406-5 ####[facility] LABCLIA [id number] [place], [place] [address]KPT (Bld) [#/Vol]8.91 10*3/uLNormal3.70-11.00[facility] on above: Order Comment: Specimen Type: BLOOD SPECIMENOrdering Facility: [facility] Address:[address] [place], [place] [address]Performed By: #### 79411- 8 ####[facility] LABCLIA [id number] [place], [place] [address]Hwkglbi.ionized [Moles/Vol]on 07-24-7869Eveizas.ionized (Bld) [Mass/Vol]1.22 mmol/LNormal1.08-1.30[facility] on above:Order Comment: Specimen Type: BLOOD SPECIMENOrdering Facility: [facility] Address:[address] [place], [place] [address]Performed By: #### 1995-0 ####[facility] LABCLIA [id number] [place] [address] [place] [facility]EWISH HOSPITALCalcium.ionized adjusted to pH 7.4 (Bld) [Moles/Vol]1.20 mmol/LNormal1.08-1.30[facility] on above:Order Comment: Specimen Type: BLOOD SPECIMENOrdering Facility: [facility] Address:[address] [place], [place] [address]Performed By: #### 1995-0 ####[facility] LABCLIA [id number] [address] [facility] Comprehensive metabolic 2000 panelon 17-91-4635Qqqzzfe [Mass/Vol]4.4 g/dLNormal 3.9-4.9COhioHealth Hardin Memorial Hospital on above:Order Comment: Specimen Type: BLOOD SPECIMENOrdering Facility: [facility] Address:[address] [place], [place] [address]Performed By: #### 2777-1, 3084-1, 2532-0, 49082-6 ####[facility] LABCLIA [id number] [place], [place] [address]QHL [Catalytic activity/Vol]108 U/EUnfjyh02-797VoybxruesAshtabula County Medical Center on above:Order Comment: Specimen Type: BLOOD SPECIMENOrdering Facility: [facility] Address:[address] [place], [place] [address]Performed By: #### 2777-1, 3084-1, 2532-0, 18180-5 ####[facility] LABIA [id number] [place], [place] [address]GFC [Catalytic activity/Vol]15 U/NEihemc56-86AqmcyhhqgAshtabula County Medical Center on above:Order Comment: Specimen Type: BLOOD SPECIMENOrdering Facility: [facility] Address:[address] [place], [place] [address]Performed By: #### 2777-1, 3084-1, 2532-0, 46824-6 ####[facility] LABCLIA [id number] [place], [place] [address]Tdzjw gap [Moles/Vol]9 mmol/LNormal8-15[facility] on above:Order Comment: Specimen Type: BLOOD SPECIMENOrdering Facility: [facility] Address:[address] [place], [place] [address]Performed By: #### 2777-1, 3084-1, 2532-0, 56530-5 ####[facility] LABCLIA [id number] [place], [place] [address]MXN [Catalytic activity/Vol]11 U/UXei46-01XqcocutvnAshtabula County Medical Center on above:Order Comment: Specimen Type: BLOOD SPECIMENOrdering Facility: [facility] Address:[address] [place], [place] [address]Performed By: #### 2777-1, 3084-1, 2532-0, 52184-1 ####[facility] LABCLIA [id number] [place], [place] [address]Djoeretrh [Mass/Vol]0.2 mg/dL Normal0.2-1.3COhioHealth Hardin Memorial Hospital on above:Order Comment: Specimen Type: BLOOD SPECIMENOrdering Facility: [facility] Address:[address] [place], [place] [address]Performed By: #### 2777-1, 3084-1, 2532-0, 69993- 8 ####[facility] LABCLIA [id number] [place], [place] [address]Xcbdeay [Mass/Vol]9.7 mg/dLNormal8.5-10.2COhioHealth Hardin Memorial Hospital on above:Order Comment: Specimen Type: BLOOD SPECIMENOrdering Facility: [facility] Address:[address] [place], [place] [address]Performed By: #### 2777-1, 3084-1, 2532-0, 66778-8 ####[facility] LABCLIA [id number] [place], [place] [address]Begzpdua [Moles/Vol]103 mmol/ALirqht24-653UgvlmeinfAshtabula County Medical Center on above: Order Comment: Specimen Type: BLOOD SPECIMENOrdering Facility: [facility] Address:[address] [place], [place] [address]Performed By: #### 2777- 1, 3084-1, 2532-0, 66164-7 ####[facility] LABCLIA [id number] [place], [place] [address]NO9 [Moles/Vol]26 mmol/LNormal 22-30[facility] on above:Order Comment: Specimen Type: BLOOD SPECIMENOrdering Facility: [facility] Address:[address] [place], [place] [address]Performed By: #### 2777-1, 3084-1, 2532-0, 17140-3 ####[facility] LABCLIA [id number] [place], [place] [address]Pgonhstcfn [Mass/Vol]1.02 mg/dLNormal0.73-1.22[facility] on above:Order Comment: Specimen Type: BLOOD SPECIMENOrdering Facility: [facility] Address:[address] [place], [place] [address]Performed By: #### 2777-1, 3084-1, 2531-0, ####[facility] LABCLIA [id number] [place], [place] [address]Fhcegpxfna and Glomerular filtration rate.predicted panel (S/P/Bld)84 mL/min/1.73m???Normal>=60[facility] on above:Order Comment: Specimen Type: BLOOD SPECIMENOrdering Facility: [facility] Address:[address] [place], [place] [address]Result Comment: Estimated Glomerular Filtration Rate (eGFR) is calculated using the 2020 CKD-EPI creatinine equation. This equation utilizes serum creatinine, sex, and age as parameters. The creatinine assay has traceable calibration to isotope dilution- mass spectrometry. Refer to KDIGO guidelines for clinical interpretation. In patients with unstable renal function, e.g. those with acute kidney injury, the eGFR may not accurately reflect actual GFR.Performed By: #### 2777-1, 3084-1, 2531-0, 43758-5 ####[facility] LABCLIA [id number] [place], [place] [address]Swiytma [Mass/Vol]126 mg/bDGopt17-87 [facility] on above:Order Comment: Specimen Type: BLOOD SPECIMENOrdering Facility: [facility] Address:[address] [place] [address]Hydjaq Comment: The [place] Diabetes Association (ADA) provides guidance for cutoff [...] unequivocal hyperglycemia, results should be confirmed by repeattesting. In a patient with classic symptoms of hyperglycemia or hyperglycemic crisis, random plasmaglucose results greater than or equal to 200 mg/dL meet the criteria for diagnosis of diabetes.Reference: Standards of Medical Care in Diabetes 2016, [place] [employer] Association. Diabetes Care. 2016.39(Suppl 1).Performed By: #### 2777-1, 4-1, 2531-0, ####[facility] LABCLIA [id number] [place], [place] [address]Hdjhbzyph [Moles/Vol]4.1 mmol/L Normal3.7-5.1COhioHealth Hardin Memorial Hospital on above:Order Comment: Specimen Type: BLOOD SPECIMENOrdering Facility: [facility] Address:[address] [place] [address]Rpotxslkf By: #### 2777-1, 4-1, 0, ####[facility] LABCLIA [id number] [place], [place] [address]Sunxifi [Mass/Vol]7.1 g/dLNormal6.3-8.0[facility] on above:Order Comment: Specimen Type: BLOOD SPECIMENOrdering Facility: [facility] Address:[address] [place], [place] [address]Jclgpflzs By: #### 2777-1, 308-1, 0, ####[facility] LABCLIA [id number] [place], [place] [address]Dirjkt [Moles/Vol]138 mmol/YQrhthi180-923EjdhgclnxAshtabula County Medical Center on above: Order Comment: Specimen Type: BLOOD SPECIMENOrdering Facility: [facility] Address:[address] [place] [address]Fcsxbbbnp By: #### 2777- 1, 3084-1, 2532-0, 13193-5 ####[facility] LABCLIA [id number] [place], [place] [address]Ssnq nitrogen [Mass/Vol]27 mg/dL High9-24[facility] on above:Order Comment: Specimen Type: BLOOD SPECIMENOrdering Facility: [facility] Address:[address] [place] [address]Hmhyhdost By: #### 2777-1, 3084-1, 2532-0, 68382- 8 ####[facility] LABCLIA [id number] [place], [place] [address]Puodjdjdsqb/100 WBC Auto (Bld)on 04-17-2024 Eosinophils/100 WBC (Bld)3.8 %[facility], AvonErythrocyte distribution width Auto (RBC) [Ratio]on 72-73-9551Tfrsaqpnyoa distribution width (RBC) [Ratio]13.2 %11.5-15.0[facility], AvonHematocrit Auto (Bld) [Volume fraction]on 41-06-4288Banywfqwsu (Bld) [Volume fraction]42.1 % 39.0-51.0[facility], AvonHemoglobin [Mass/volume] in Bloodon 72-03-9834Uyrsfoflts (Bld) [Mass/Vol]14.3 g/dL13.0-17.0[facility], AvonIMMUNOFIXATION SCREEN, SERUMon 53-19-4475DYZCQSDERDOMNI (MPA) Atypical restricted bands are present in the IgM and kappa regions. Consistent with IgM kappa monoclonal gammopathy.NormalAshtabula County Medical Center on above:Order Comment: Specimen Type: BLOOD SPECIMENOrdering Facility: [facility] Address:[address] [place] [address]Ovpeekaex By: #### IFESC ####[facility] LABCLIA [id number] [place] [address] [place] AMERICAMPA RESULTM protein is present. AbnormalNo M protein is identified.[facility] on above: Order Comment: Specimen Type: BLOOD SPECIMENOrdering Facility: [facility] Address:[address] [place], [place] [address]Performed By: #### IFESC ####[facility] LABCLIA [id number] [place] [address] [place] OF AMERICASTAFF REVIEW (MPA)Reviewed by Dr. Anjelica De León MDNoalCOhioHealth Hardin Memorial Hospital on above:Order Comment: Specimen Type: BLOOD SPECIMENOrdering Facility: [facility] Address:[address] [place], [place] [address]Performed By: #### IFESC ####[facility] LABCLIA [id number] [place] [address] [place] AMERICAIMMUNOGLOBULINS,IGG,IGA,IGMon 53-50-6892ZvE [Mass/Vol]88 mg/zUGdmsys23-842GhgnwvupiAshtabula County Medical Center on above:Order Comment: Specimen Type: BLOOD SPECIMENOrdering Facility: [facility] Address:[address] [place], [place] [address]Performed By: #### SERIMM ####[facility] LABCLIA [id number] [place] [address] [place] AMERICAIgG [Mass/Vol]650 mg/dL Dwu937-2232IeqxghfciAshtabula County Medical Center on above:Order Comment: Specimen Type: BLOOD SPECIMENOrdering Facility: [facility] Address:[address] [place], [place] [address]Performed By: #### SERIMM ####[facility] LABCLIA [id number] [place] [address] [place] AMERICAIgM [Mass/Vol]92 mg/aJEwrsap33-940DypvumqviAshtabula County Medical Center on above:Order Comment: Specimen Type: BLOOD SPECIMENOrdering Facility: [facility] Address:[address] [place], [place] [address]Performed By: #### SERIMM ####[facility] LABCLIA [id number] [place] [address] [place] IgA [Mass/volume] in Serum or Plasmaon 14-37-3209VgE [Mass/Vol]88 mg/oL91-182 [facility], AvonIgG [Mass/volume] in Serum or Plasmaon 07-23-3950FbY [Mass/Vol]650 mg/bYYbx058-6259BacuxdyajSelect Medical [facility] Clinic [facility], AvonIgM [Mass/volume] in Serum or Plasmaon 81-54-0442TtC [Mass/Vol]92 mg/tO49-193 [facility], AvonImmunoglobulin light chains.kappa.free [Mass/volume] in Serumon 96-41-7423Gkemrflifykwek light chains.kappa.free (S) [Mass/Vol]18.5 mg/L3.3-19.4FDelaware County HospitalComment on above: Rarely, increased serum free light chains levels may not be detected or accurately quantified due to prozone phenomenon or in high viscosity samples using this immunoturbidimetric assay. Correlation with other laboratory results and clinical findings is recommended. The [place] Free Light Chain was performed using the Binding Site Optilite immunoturbidimetric method. Result obtained with different assay methods or kits cannot be used interchangeably.Immunoglobulin light chains.kappa.free/Immunoglobulin light chains.lambda.free [Penny 08-00-9623Zzsczgwzwothge light chains.kappa.free/Immunoglobulin light chains.lambda.free (S) [Mass ratio]1.530.26-1.65[facility], AvonImmunoglobulin light chains.lambda.free [Mass/volume] in Serum or Plasmaon 02-65-3728Cpvoajwphfmtdb light chains.lambda.free [Mass/Vol]12.1 mg/L5.7-26.3 [facility], AvonComment on above:Rarely, increased serum free light chains levels may not be detected or accurately quantified due to prozone phenomenon or in high viscosity samples using this immunoturbidimetric assay. Correlation with other laboratory results and clinical findings is recommended. The Lambda Free Light Chain was performed using the Binding Site Optilite immunoturbidimetric method. Result obtained with differentassay methods or kits cannot be used interchangeably.KAPPA/KING,FREE,SERon 05-81-6183Pcaztcozgdimyp light chains.kappa.free (S) [Mass/Vol]18.5 mg/LNormal3.3-19.4CUniversity Hospitals Elyria Medical CenterComment on above:Order Comment: Specimen Type: BLOOD SPECIMENOrdering Facility: [facility] Address:[address] [place], [place] [address]Result Comment: Rarely, increased serum free light chains levels may not be detected or accurately quantified due to prozone phenomenon or in high viscosity samples using this immunoturbidimetric assay. Correlation with other laboratory results and clinical findings is recommended.The [place] Free Light Chain was performed using the Binding Site Optilite immunoturbidimetric method. Result obtained with different assay methods or kits cannot be used interchangeably.Performed By: #### KLFRS ####[facility] LABCLIA [id number] [place] [address] [place] AMERICAImmunoglobulin light chains.kappa/Immunoglobulin light chains.lambda (S) [Mass ratio]1.14Ujkmtu2.26-1.65[facility] on above:Order Comment: Specimen Type: BLOOD SPECIMENOrdering Facility: [facility] Address:[address] [place], [place] [address]Performed By: #### KLFRS ####[facility] LABCLIA [id number] [facility] [address] [place] [address] [place] AMERICAImmunoglobulin light chains.lambda.free [Mass/Vol]12.1 mg/LNormal5.7-26.3CUniversity Hospitals E[facility] Medical Center Comment on above:Order Comment: Specimen Type: BLOOD SPECIMENOrdering Facility: [facility] Address:[address] [place], [place] [address]Result Comment: Rarely, increased serum free light chains levels may not be detected or accurately quantified due to prozone phenomenon or in high viscosity samples using this immunoturbidimetric assay. Correlation with other laboratory results and clinical findings is recommended.The Lambda Free Light Chain was performed using the Binding Site Optilite immunoturbidimetric method. Result obtainedwith different assay methods or kits cannot be used interchangeably.Performed By: #### KLFRS ####[facility] LABCLIA [id number] [place] [address] [place] AMERICALD SerPl-cCncon 36-22-0530QJZ [Catalytic activity/Vol]150 U/CRvvzkj933-957QyvyjjubgSt. Vincent HospitalComment on above:Order Comment: Specimen Type: BLOOD SPECIMENOrdering Facility: [facility] Address:[address] [place], [place] [address]Performed By: #### 2777-1, 3084-1, 2532-0, 13884-5 ####[facility] LABCLIA [id number] [place] [address] Laboratory - Chemistry and Chemistry - challengeon 03-17-3522Xayckef [Mass/Vol] 4.4 g/dL3.9-4.9[facility], AvonALP [Catalytic activity/Vol]108 U/P22-528GzzenxdzgSelect Medical [facility], AvonALT [Catalytic activity/Vol]15 U/L 10-54[facility] AvonAST [Catalytic activity/Vol]11 U/RXbp76-36 [facility], AvonBilirubin [Mass/Vol]0.2 mg/dL0.2-1.3FDelaware County HospitalCalcium [Mass/Vol]9.7 mg/dL8.5-10.2FDelaware County HospitalChloride [Moles/Vol]103 mmol/X26-736ShcvpizkuSelect Medical [facility], AvonCO2 [Moles/Vol]26 mmol/T69-26RkbnahwqlSelect Medical [facility], AvonCreatinine [Mass/Vol]1.02 mg/dL0.73-1.22[facility], AvonGlucose [Mass/Vol] 126 mg/eRLocs39-49BrzulqtxaSelect Medical Cleveland Clinic Rehabilitation Hospital, AvonComment on above:The [place] Diabetes Association (ADA) provides guidance for cutoff [...] diabetes.Reference: Standardsof Medical Care in Diabetes 2016, [place] [employer] Association. Diabetes Care. 2016.39(Suppl 1). LDH [Catalytic activity/Vol]150 U/G293-561YsrmvmcnySelect Medical [facility] Clinic [facility] [place] Potassium [Moles/Vol]4.1 mmol/L3.7-5.1FDelaware County HospitalProtein [Mass/Vol]0.00 g/dL<=0.00Sheltering Arms Hospitalodium [Moles/Vol]138 mmol/B177-296IcduwttleSelect Medical Cleveland Clinic Rehabilitation Hospital, AvonUrate [Mass/Vol]6.5 mg/dL4.0-8.1 [facility], AvonUrea nitrogen [Mass/Vol]27 mg/dLHigh9-24 [facility], AvonLaboratory - Hematology and Cell countson 08-46-2269Yeigvrzrnht (Bld) [#/Vol]0.34 10*3/uL<0.46[facility], AvonImmature granulocytes (Bld) [#/Vol]0.04 10*3/uL<0.10[facility], AvonImmature granulocytes/100 WBC (Bld)0.4 %[facility], AvonLeukocytes [#/volume] corrected for nucleated erythrocytes in Blood by Automated counon 42-06-9820RZM corrected for nucl RBC Auto (Bld) [#/Vol]8.91 k/uL3.70-11.00[facility], AvonLymphocytes Auto (Bld) [#/Vol]on 92-24-9564Wiagolsfcsn (Bld) [#/Vol]0.83 10*3/uLLow1.00-4.00[facility], AvonLymphocytes/100 WBC Auto (Bld)on 99-38-7572Tosswtvujzk/100 WBC (Bld)9.3 %[facility], AvonMCH Auto (RBC) [Entitic mass]on 25-74-7926UUI (RBC) [Entitic mass]30.1 pg26.0-34.0[facility], AvonMCHC Auto (RBC) [Mass/Vol]on 85-49-4791AXPP (RBC) [Mass/Vol]34.0 g/dL 30.5-36.0[facility], AvonMCV Auto (RBC) [Entitic vol]on 36-28-0746TYR (RBC) [Entitic vol]88.6 fL80.0-100.0[facility], AvonMonocytes Auto (Bld) [#/Vol]on 17-54-3511Vnpxndrxy (Bld) [#/Vol]0.58 10*3/uL<0.87[facility], AvonMonocytes/100 WBC Auto (Bld)on 98-66-8187Lxiluzdyp/100 WBC (Bld)6.5 %[facility] Neutrophils Auto (Bld) [#/Vol]on 97-64-7752Ssxzuwlztav (Bld) [#/Vol]7.09 10*3/uL 1.45-7.50[facility], AvonNeutrophils/100 WBC Auto (Bld)on 71-00-3273Vojcbordgns/100 WBC (Bld)79.7 %[facility], AvonNo Panel Informationon 06-11-1387Kbzxreiiz GFR (CKD-EPI)84 mL/min/1.73m???>=60 [facility], AvonComment on above:Estimated Glomerular Filtration Rate (eGFR) is calculated using the 2020 CKD-EPI creatinine equation. This equation utilizes serum creatinine, sex, and age as parameters. The creatinine assay has traceable calibration to isotope dilution-mass spectrometry. Refer to KDIGO guidelines for clinical interpretation. In patients with unstable renal function, e.g. those with acute kidney injury, the eGFRmay not accurately reflect actual GFR.Immunofixation InterpretationSelect Medical Cleveland Clinic Rehabilitation Hospital, AvonIonized Calcium (pH Adjusted)1.20 mmol/L1.08-1.30 [facility], AvonLeuk/Lymph Sign Pathologist (Misc)Reviewed by Dr. Anjelica De León MDSelect Medical [facility] Clinic [facility] Hospital, AvonMiscellaneous Test 6See commentSelect Medical Cleveland Clinic Rehabilitation Hospital, AvonComment on above:Not Applicable. Miscellaneous Test CommentReviewed by Dr. Anjelica De León MDSelect Medical [facility], AvonPhosphorus Level3.6 mg/dL2.7-4.8[facility] Protein Electrophoresis InterpretSelect Medical [facility], AvonProtein Electrophoresis NoteAbnormalNo definitive M protein is identified on protein electrophoresis.[facility]heltering Arms Hospitalerum ImmunofixationM protein is present.AbnormalNo M protein is identified.[facility] Nucleated RBC Auto (Bld) [#/Vol]on 87-42-2039Kturolaif RBC (Bld) [#/Vol]10*3/uL <0.01[facility], AvonNucleated erythrocytes [Presence] in Blood by Automated counton 76-57-5690Ihslbvllb RBC Auto Ql (Bld)0.0 /100{WBC} [facility], AvonPROTEIN ELECTROPHORESIS SERUM (P)on 04-17-2024 Albumin [Mass/Vol]4.24 g/dLNormal3.43-5.41St. Vincent HospitalComment on above:Order Comment: Specimen Type: BLOOD SPECIMENOrdering Facility: [facility] Address:[address] [place], [place] [address]Performed By: #### [id number] ####[facility] LABIA [id number] [place] [address] [place] OF AMERICAAlpha 1 globulin Elph [Mass/Vol]0.35 g/dLNormal0.18-0.43[facility] on above: Order Comment: Specimen Type: BLOOD SPECIMENOrdering Facility: [facility] Address:[address] [place], [place] [address]Performed By: #### [id number] ####[facility] [id number] [place] [address] [place] AMERICAAlpha 2 globulin Elph [Mass/Vol]0.69 g/dLNormal0.42-0.98[facility] on above: Order Comment: Specimen Type: BLOOD SPECIMENOrdering Facility: [facility] Address:[address] [place], [place] [address]Performed By: #### [id number] ####[facility] LABCLIA [id number] [place] [address] [place] OF AMERICABeta globulin Elph [Mass/Vol]0.76 g/dLNormal0.61-1.17[facility] on above: Order Comment: Specimen Type: BLOOD SPECIMENOrdering Facility: [facility] Address:[address] [place], [place] [address]Performed By: #### [id number] ####[facility] [id number] [place] [address] [place] AMERICAGamma globulin Elph [Mass/Vol]0.56 g/dLNormal0.53-1.51[facility] on above: Order Comment: Specimen Type: BLOOD SPECIMENOrdering Facility: [facility] Address:[address] [place], [place] [address]Performed By: #### [id number] ####[facility] [id number] [place] [address] [place] AMERICAINTERPRETATION COMMENT FOR PROTEIN ELECTROPHORESISNormalCOhioHealth Hardin Memorial Hospital on above: Order Comment: Specimen Type: BLOOD SPECIMENOrdering Facility: [facility] Address:[address] [place], [place] [address]Performed By: #### [id number] ####[facility] [id number] [place] [address] [place] OF AMERICAM-PROTEIN LOCATION NormalAshtabula [facility] Medical Center on above:Order Comment: Specimen Type: BLOOD SPECIMENOrdering Facility: [facility] Address:[address] [place], [place] [address]Result Comment: Not Applicable.Performed By: #### [id number] ####[facility] [id number] [place] [address] [place] AMERICAProtein Fractions [Interp]An atypical region of restricted mobility is identified on protein electrophoresis.AbnormalNo definitive M protein is identified on protein electrophoresis.[facility] on above:Order Comment: Specimen Type: BLOOD SPECIMENOrdering Facility: [facility] Address:[address] [place], [place] [address]Performed By: #### [id number] ####[facility] LABCLIA [id number] [place] [address] [place] AMERICAProtein.monoclonal Elph [Mass/Vol]0.00 g/dLNormal<=0.00[facility] on above:Order Comment: Specimen Type: BLOOD SPECIMENOrdering Facility: [facility] Address:[address] [place], [place] [address]Performed By: #### [id number] ####[facility] LABCLIA [id number] [place] [address] [place] OF AMERICASPE STAFF REVIEW Reviewed by Dr. Anjelica De León MDNormalCOhioHealth Hardin Memorial Hospital on above:Order Comment: Specimen Type: BLOOD SPECIMENOrdering Facility: [facility] Address:[address] [place], [place] [address]Performed By: #### [id number] ####[facility] LABCLIA [id number] [place] [address] [place] AMERICAPhosphate SerPl-mCncon 22-18-8639Aammqaucy [Mass/Vol]3.6 mg/dLNormal2.7-4.8CUniversity Hospitals [facility]ly[facility] Comment on above:Order Comment: Specimen Type: BLOOD SPECIMENOrdering Facility: [facility] Address:[address] [place] [address] Performed By: #### 2777-1, 3084-1, 2532-0, 47372-3 ####[facility] LABCLIA [id number] [place], [place] [address]Owadgmdo mean volume Auto (Bld) [Entitic vol]on 97-13-6680Vsjobpxj mean volume (Bld) [Entitic vol]9.9 fL9.0-12.7FDelaware County HospitalPlatelets Auto (Bld) [#/Vol]on 87-46-8465Sqbqvruaa (Bld) [#/Vol]217 10*3/oB195-605FrpqqntnySelect Medical [facility] Hospital, AvonProt SerPl-mCncon 04-80-1890Badoqma [Mass/Vol]6.6 g/dLNormal 6.3-8.0[facility] on above:Order Comment: Specimen Type: BLOOD SPECIMENOrdering Facility: [facility] Address:[address] [place], [place] [address]Performed By: #### 1952-1, 2885-2 ####[facility] LABCLIA [id number] [facility] [place] [address] [place] AMERICAProtein [Mass/volume] in Serum or Plasmaon 04-17-2024 Protein [Mass/Vol]6.6 g/dL6.3-8.0[facility], AvonQuantitative serum viscosity measurementon 02-29-4822Bfwqcchah (S) [Visc]1.10 cP<=1.50 [facility], AvonComment on above:INTERPRETIVE INFORMATION: Viscosity, SerumIncreased viscosity is associated with disorders such as m onoclonal gammopathy, macroglobulinemia, and multiple myeloma. Significantly elevated viscosity (>3.0 cP) is associated with clinical symptoms of hyperviscosity syndrome.This test was developed and its performance characteristics determined by [employer]. It has not been cleared or approved by the US Food and Drug Administration. This test was performed in a CLIA certified laboratory and is intended for clinical purposes.Performed By: [employer] [place] [address] [id number] Director: Donald Banda MD, PhDCLIA Number: [id number] Auto (Bld) [#/Vol]on 18-85-0887PRY (Bld) [#/Vol]4.75 10*6/uL4.20-6.00Sheltering Arms HospitalERUM VISCOSITYon 67-82-6664DVPGXUUHR, SERUM1.10 cPNormal<=1.50[facility] on above:Order Comment: Specimen Type: BLOOD SPECIMENOrdering Facility: [facility] Address:[address] [place], [place] [address]Iqoulv Comment: INTERPRETIVE INFORMATION: Viscosity, SerumIncreased viscosity is associated with disorders such asmonoclonal gammopathy, macroglobulinemia, and multiple myeloma.Significantly elevated viscosity (>3.0 cP) is associated withclinical symptoms of hyperviscosity syndrome.This test wasdeveloped and its performance characteristicsdetermined by [employer]. It has not been cleared orapproved by the US Food and Drug Administration. This test wasperformed in a CLIA certified laboratory and is intended forclinical purposes.Performed By: [facility] [place] [address]Njzifxaqcx Director: Donald Banda MD, PhDCLIA Number: [id number] By: #### SERVIS ####[facility]ITALIA [id number] [place], [place] [address]Yrfho ionized calcium measurement using ion specific electrode (mass/volume)on 84-13-9166Qmgwekq.ionized ISE [Mass/Vol]1.22 mmol/L1.08-1.30Sheltering Arms Hospitalerum or plasma alpha 1 globulin measurement by electrophoresis (mass/volume)on 15-29-5157Fqswr 1 globulin Elph [Mass/Vol]0.35 g/dL0.18-0.43Sheltering Arms Hospitalerum or plasma alpha 2 globulin measurement by electrophoresis (mass/volume)on 87-31-9512Znskn 2 globulin Elph [Mass/Vol]0.69 g/dL0.42-0.98[facility] Serum or plasma anion gap determinationon 41-81-3133Xhgvp gap [Moles/Vol]9 mmol/L8-15S[facility]tering Arms Hospitalerum or plasma beta globulin measurement by electrophoresis (mass/volume)on 68-32-1721Fzet globulin Elph [Mass/Vol]0.76 g/dL0.61-1.17S[facility] Arms Hospitalerum or plasma plvj-9-grkfqjdlcyane measurement (mass/volume)on 74-25-7268Lnxq-2-Microglobulin [Mass/Vol]1.7 ug/mL<3.1FDelaware County HospitalComment on above:Beta-2 Microglobulin test is performed using the [employer] immunoturbidimetric method. Results obtained with different methods or kits cannot be used interchangeably.Serum or plasma gamma globulin measurement by electrophoresis (mass/volume)on 39-10-4148Aorgv globulin Elph [Mass/Vol]0.56 g/dL0.53-1.51 [facility], AvonUrate SerPl-mCncon 02-95-1758Rjpbf [Mass/Vol] 6.5 mg/dLNormal4.0-8.1CUniversity Hospitals Elyria Medical CenterComment on above:Order Comment: Specimen Type: BLOOD SPECIMENOrdering Facility: [facility] Address:[address] [place], [place] [address]Performed By: #### 2777-1, 3084-1, 2532-0, 56099-1 ####[facility] LABCLIA [id number] [place], [place] [address]B PYLORI SCREENon 01-28-2024H. pylori Org specific cx Ql (Julita fld)NegativeNormalNEGProTexas Health Presbyterian Hospital PlanoComment on above:Performed By: #### 83727-9 #### [facility] ([id number]) [address] [place] [address] [address] [place], [place] [address]Gqokadum Pathologyon 26-55-3438Zfkuwrtn PathologyNormalDelaware County HospitalComment on above:Result Comment: [facility] [address] [place] [address] Surgical Pathology Consultation Patient Name:KODI RIVAS:1965 (Age: 58)Gender:MTaken:4Reported:01/30/2024hysician(s):Lazara Dumas D.O. ([phone])Copy To: Rec. #:[id number]: #[id number] Final Pathologic Diagnosis 1. Gastric antrum biopsies: [...] biopsies: Tubular adenoma. Report Electronically Signed Out [facility]/01/30/2024Nas Paul M.D. Interpretation performed at [facility], [address] [place] [address], [place] [address], License number: [id number]. Clinical History Gastroesophageal reflux, history of colon polyps. 3. Snared a polyp. 4. Snared a polyp. Gross Description 1. Received in formalin labeled SLEA, antrum BX are two light keene soft tissue bits, 0.3 cm each. The specimen is filtered and entirely submitted in a single cassette. (1, ns, [id number],m8) DM. 2. .Received in formalin labeled MONTROSEA, distal esophagus BX are four light keene feathery soft tissue bits, 0.2-0.3 cm. The specimen is filtered and entirely submitted in a single cassette. (1, ns, A91-66290-0,m8) DM. 3. Received in formalin labeled SLEA, ascending colon polyp are three light keene soft tissue bits, 0.1-0.4 cm. The specimen is filtered and entirely submitted in a single cassette. (1, ns, N88-65964-1,m8) DM. 4. Received in formalin labeled SLEA, distal transverse colon polyp are four light keene soft tissue bits, 0.2-0.4 cm. The specimen is filtered and entirely submitted in a single cassette. (1, ns, H56-07068-3,m8) DM. dm/01/29/2024NSK Specimen(s) Received 1: Antrum biopsy 2: Distal esophageal biopsy 3: Ascending colon polyp 4: Distal transverse colon polyp Fee Codes(s): 1; 01635 2; 12001 3; 09650 4; 58103Urcikth Letter FTon 70-23-5127Xlctqpv Letter [facility] July 25, 2023 KODI RIVAS [address] [place] [address] : 1965 Dear Kodi, This is a SECOND ATTEMPT to remind you that you are due for an appointment with [facility]. Please contact our office at [phone] to schedule an appointment at your earliest convenience. Thank you, [facility] ValleyRemst. mary's hospital 51-92-5662Cxtploaya From: Kasandra Fu MA To: [facility] - Reminders/Recalls; Sent: 06/21/2023 09:31:46 EDT Show up: 06/21/2023 09:32:00 EDT Subject: colon recall Reminder Message 5 year colon recall Mynor 05/23/18 first recall letter second recall letterMer[facility] Health Defiance HospitalPatient Letter FTMCon 49-64-5838Urisnse Letter FT June 22, 2023 KODI RIVAS [address] [place] [address] : 1965 Dear Kodi, This is a reminder that you are due for an appointment with [facility]. Please contact our office at [phone] to schedule an appointment at your earliest convenience. Thank you, [facility] N[facility] ValleyAlanine Aminotransferaseon 32-36-2796CPC [Catalytic activity/Vol]25 U/GUrnicl02-63 U/L [facility] Other Basic Metabolic Panelon 08-73-3041Vpnig gap [Moles/Vol]12.7 mmol/[employer] Other Calcium [Mass/Vol]8.7272528 mg/dLNormal8.5-10.1 mg/dL [facility] Other Chloride [Moles/Vol]104 mmol/SAieeze61-779 mmol/[employer] Other CO2 [Moles/Vol]27.34268854 mmol/YIuofed94.0-32.0 mmol/[employer] Other Creatinine [Mass/Vol]0.15504065 mg/dLNormal0.70-1.30 mg/dLNoeastern missouri state hospital [facility] Other Glucose [Mass/Vol]121 mg/vANyww95-296 mg/dLRoxana [facility] Other Potassium [Moles/Vol]3.76972947 mmol/LNormal3.5-5.1 mmol/LNcenterpoint medical center [facility] Other Sodium [Moles/Vol]140 mmol/EIzityt378-419 mmol/LNcenterpoint medical center [facility] Other Urea nitrogen [Mass/Vol]29.7904566 mg/dLHigh7.0-18.0 mg/dLRoxana [facility] Other Urea nitrogen/Creatinine [Mass ratio]33.0 mg/mgNoeastern missouri state hospital [facility] Other Basic Metabolic Panelsee noteNoBradford Regional Medical Center [employer] Other Basic Metabolic Panel>60>=60Noeastern missouri state hospital [facility] Other Lipid Panelon 26-97-9477Guewhbhefqe [Mass/Vol]233 mg/dLHigh<=200 mg/dLRoxana [facility] Other Cholesterol in HDL [Mass/Vol]38 mg/dWMlj45-43 mg/dL [facility] [employer] Other Triglyceride [Mass/Vol]166 mg/dLHigh<=150 mg/dLRoxana [facility] Other Lipid Pcqcp230.0 mg/dLRoxana [facility] Other Lipid Panel33.2 mg/dLRoxana [facility] Other Lipid Panel6.1Ncenterpoint medical center [facility] Other PSA SCREENINGon 03-58-9689SXW SCREENING2.41 ng/mL <=4.00 ng/mLNcenterpoint medical center [facility] Other ua RANDOM W/MICROSCOPICon 74-22-5416Zdtsdcc (U)CLEAR CLEARRoxana [facility] Other Color (U)LT. YELLOWYELLOWRoxana [facility] Other Ketones Ql (U)NegativeNEGATIVE mg/dLRoxana [facility] Other Leukocyte esterase Test strip Ql (U)NegativeNEGATIVE [facility] Other pH (U)6.0 [pH]5.0-9.0R[facility] Other ua RANDOM W/MICROSCOPICNONE SEEN #/HPFNONE SEEN #/HPF [facility] Other ua RANDOM W/MICROSCOPIC2-5 #/HPFAbnormal0-2 #/[employer] Sur[employer] Make[employer] AcademyGradeable [employer] Other ua RANDOM W/MICROSCOPIC>=1.598Shltavjm4.005-1.025R[facility]ana [facility] Other ua RANDOM W/MICROSCOPICNegativeNEGATIVEGradeable [employer] Other ua RANDOM W/MICROSCOPICLARGEAbnormalNEGATIVEGradeable [facility] Other ua RANDOM W/MICROSCOPIC0.2 EU/dL0.2-1.0 EU/dLRoxana [facility] Other ua RANDOM W/MICROSCOPICNONE SEENNONE SEENRoxana [facility] Other ua RANDOM W/MICROSCOPICFEW #/LPFAbnormalNONE/RARE #/LPFGradeable [employer] Other ua RANDOM W/MICROSCOPICSeen #/HPFAbnormalNone Seen #/[employer] Surprenant Makeup AcademyA[employer] Other ua RANDOM W/MICROSCOPICRARENorth [employer] Other ua RANDOM W/MICROSCOPICALREADY ORDEREDRoxana [facility] Other US WOLFGANG DOP LEG RTon 13-43-8130XS WOLFGANG DOP LEG RT EXAMINATION: US WOLFGANG [...] Electronically authenticated by: MENDY BIRMINGHAM Date: 2022-09-28 17:34NoProMedica Bay Park HospitalUS Venous, Unilat, Lower Ext Righton 55-89-2785KN Venous, Unilat, Lower Ext RightCLINICAL HISTORY: Right calf pain. COMPARISON: None. TECHNIQUE: [...] and signed by Marshall Sultana on 07/25/2022 1033NormalNorthern Memphis Mental [facility] Institute SpecialistMRI LIVER WO/W IVCONon 07-59-8001Vduvidikj ClinicEGD / Colonoscopyon 58-12-6293IjaUhvbbsPending sale to [facility] Healthurgical PathologyOrdered By: Ambar Ogden on 71-94-6631SzoCbnckgTuscarawas Hospital Surgical Pathology Departmenton 61-88-9204Zipeo Surgical Pathology DepartmentName KODI RIVAS Pathologist: JESUS KANG, MDDate of Procedure: 04/23/2018Date Received: 04/24/2018Date Reported 04/25/2018Submitting Physician: ALIZA GLEASON,DOLocation: JGIL Copy To/Referring/Attending:ROMY LÓPEZ MD FINAL DIAGNOSISA. 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 SEE NOTE.-- FUNDIC TYPE GASTR IC MUCOSA WITH NO SIGNIFICANT PATHOLOGICAL FINDINGS.Note: Helicobacter pylori- like organisms are not identified.B. DUODENUM BIOPSY (COLD FORCEP): -- SMALL INTESTINAL MUCOSA WITH NO SIGNIFICANT PATHOLOGICAL FINDINGS. Electronically Signed Out By JESUS KANG MD/RFA Clinical History:Suspected pancreatic neoplasm, weight loss, failure [...] ranging insize from 0.2 x 0.1 x 0.1cm to 0.5 x 0 point 0.1 cm. The specimen is filteredand submitted in toto in one cassette.JSjas/04/24/2018Normal [facility] Center–AppletonComment on above:Performed By: #### AMC ####[facility] Surgical Pathology Aeueitfqjq7800 [facility] [address]DAZRAYM-JGWSzi 99-35-9554Bgdagof mass orum572 mg/lPCqpx06 [address] Diaz StreetComment on above:Performed By: #### GLUPO ####[facility] [id number] [place], [place] [address]Thzqugr mass whof203 mg/fSMxec59 - 99ThedaCare [facility] Medical Center–AppletonComment on above:Performed By: #### GLUPO ####[facility] [id number] [place], [place] [address]EWQ with Diffon 79-62-5124Les. Basophil0.00 k/uLNormal0.0-0.2[facility] Health HamiltonComment on above:Result Comment: Performed at [address] [address] Performed By: #### CDP, CP ####[address] [address] Abs.Neutrophil (Seg)6.50 k/uLNormal1.3-9.1[facility] HamiltonCommymichigan medical center sag[facility]aw on above:Performed By: #### CDP, CP ####[address] [address] Basophils/100 WBC Auto (Bld)1 %NormalMiddletown HospitalCommymichigan medical center [place] on above:Performed By: #### CDP, CP ####[address] [address] Eosinophils0.10 10*3/uLNormal0.0-0.4MerBucyrus Community HospitalCommymichigan medical center [place] on above: Performed By: #### CDP, CP ####[address] [address] Eosinophils/100 leukocytes1 %NormalMiddletown HospitalCommymichigan medical center [place] on above:Performed By: #### CDP, CP ####[address] [address] Erythrocyte distribution width Auto Ratio (RBC)13.6 %Cjgsvd95.5-14.9Middletown HospitalCommymichigan medical center [place] on above:Performed By: #### CDP, CP ####[address] [address] Erythrocytes (RBC)4.79 10*6/uLNormal4.5-5.9[facility] on above:Performed By: #### CDP, CP ####[address] [address] Hematocrit (HCT)42.0 %Vitwof49-50BiuaqMiddletown Hospital Comment on above:Performed By: #### CDP, CP ####[address] [address] Hemoglobin mass conc (Bld)14.1 g/dL Prrawu91.5-17.5MerBucyrus Community HospitalComment on above:Performed By: #### CDP, CP ####[address] [address] Uatlezkerkr9.10 10*3/uLNormal1.0-4.8[facility] Comment on above:Performed By: #### CDP, CP ####[address] [address] Lymphocytes/100 ycedzvtxky42 %Normal [facility]letown HospitalComment on above:Performed By: #### CDP, CP ####[address] [address] MYN46.5 pg Dcgelv83-24CtnfpBucyrus Community HospitalComment on above:Performed By: #### CDP, CP ####[address] [address] MCHC mass conc (RBC)33.6 g/lKOogmeg84-14PajvsBucyrus Community HospitalComment on above:Performed By: #### CDP, CP ####[address] [address] ETJ06.6 kWHjlvft78-602NigkoBucyrus Community HospitalComment on above:Performed By: #### CDP, CP ####[address] [address] Tcntpxpwv9.60 10*3/uL Normal0.1-1.3MercThe MetroHealth SystemComment on above:Performed By: #### CDP, CP ####[facility] [place] [address].[place] [address] Monocytes/100 leukocytes7 %NormalMiddletown HospitalComment on above: Performed By: #### CDP, CP ####[address] [place] [address] Neutrophil (Seg)78 %NormalMiddletown HospitalComment on above:Performed By: #### CDP, CP ####[address] [address] Platelet mean volume (PMV) 9.1 fLNormal6.0-12.0Middletown HospitalComment on above:Performed By: #### CDP, CP ####[address] [address] Cjfbnyize287 10*3/iNUegbdt292-037SotfxBucyrus Community Hospital Comment on above:Performed By: #### CDP, CP ####[address] [address] WBC (Leukocytes)8.3 10*3/uLNormal 3.5-11.0M[facility]letown HospitalComment on above:Performed By: #### CDP, CP ####[address] [phone] Diff PerformedNOT REPORTEDNormalMerBucyrus Community HospitalComment on above: Performed By: #### CDP, CP ####[address] [address] Erythrocyte morphologyNOT REPORTEDNormalMiddletown HospitalComment on above:Performed By: #### CDP, CP ####[address] [address] PlateletsNOT REPORTEDNormalMiddletown HospitalComment on above:Performed By: #### CDP, CP ####[address] [address] WBC MorphologyNOT REPORTEDNormDoctors HospitalComment on above: Performed By: #### CDP, CP ####[address] [phone] Metabolic Profon 06-28-2017(cont.)Normal [facility] HospitalCommymichigan medical center [facility] on above:Result Comment: Average GFR for 50-59 years old: 93 mL/min/1.73sq mChronic Kidney Disease: <60 mL/min/1.73sq mKidney failure: <15 mL/min/1.73sq meGFR calculated using average adult body mass. Ad ditional eGFR calculator available at:[email or web address] at [address] [address] [phone] By: #### CDP, CP ####[address] [phone] aminotransferase (ALT)11 U/LNormal5-41[facility] HospitalComment on above:Performed By: #### CDP, CP ####[address] [phone] g/dL Normal3.5-5.2[facility] HamiltonComment on above:Performed By: #### CDP, CP ####[address] [address] Alkaline Phos78 U/TIpaace49-368XylkcMiddletown HospitalComment on above: Performed By: #### CDP, CP ####[address] [phone] gap13 mmol/LNormal9-17MerBucyrus Community HospitalComment on above:Performed By: #### CDP, CP ####[address] [address] Aspartate aminotransferase (AST)10 U/LNormal<40MerBucyrus Community HospitalComment on above:Performed By: #### CDP, CP ####[address] [address] Bilirubin Ql (U)0.25 mg/dLLow0.3-1.2[facility] Comment on above:Performed By: #### CDP, CP ####[address] [address] Mborknb6.2 mg/dLNormal8.6-10.4[facility] HamiltonComment on above:Performed By: #### CDP, CP ####[address] [address] Xmmermbv740 mmol/L Geglhu07-089Uysrl [facility] HamiltonComment on above:Performed By: #### CDP, CP ####[address] [address] CO227 mmol/ENszxqw39-68Jpfao [facility] HamiltonComment on above:Performed By: #### CDP, CP ####[address] [address] Wlngkwsspl2.86 mg/dLNormal0.70-1.20[facility] Hospital Comment on above:Performed By: #### CDP, CP ####[address] [address] eGFR (non-black)mL/min/{1.73_m2}Normal >60[facility] HamiltonComment on above:Performed By: #### CDP, CP ####[address] [address] Glucose mass mmvj244 mg/tZKpny78-69Otzsh [facility] HospitalComment on above: Performed By: #### CDP, CP ####[address] [address] Potassium molar conc3.6 mmol/LLow3.7-5.3[facility] HospitalComment on above:Performed By: #### CDP, CP ####[address] [address] Uuertzl0.6 g/dL Normal6.4-8.3[facility] HamiltonComment on above:Performed By: #### CDP, CP ####[address] [address] Vnnjhs770 mmol/RYcqvgx552-737ZmuliBucyrus Community HospitalComment on above: Performed By: #### CDP, CP ####[address] [address] Urea oisthquo55 mg/dLNormal6-20[facility] HospitalComment on above:Performed By: #### CDP, CP ####[address] [address] Albumin/Globulin RatioNOT REPORTEDNormal1.0-2.5[facility] HospitalComment on above: Performed By: #### CDP, CP ####[address] [address] BUN/CRE RatioNOT REPORTEDNormal9-20[facility] HospitalComment on above:Performed By: #### CDP, CP ####[address] [address] Staging:NOT REPORTEDNormalMerBucyrus Community HospitalComment on above:Performed By: #### OMID, CP ####[facility]ela [facility] [place] [address] Vital Signs Date TimeVital SignValuePerforming TqztnotpqCsspvvlx04-05-0882 13:11-0400Body mass index (BMI) [Ratio]26.14 kg/r4Zyawcp Valorie DO Work Phone: noCox Walnut LawnStoswafexa05-98-6274 13:11-0400Body .29 kgNicole Valorie DO Work Phone: [place] [address]Ccbnrxohfb19-54-2611 13:11-0400Diastolic blood iesaxsjt25 mm[Hg]Evan Valorie DO Work Phone: [place] [address]Fiswunbarq01-62-5712 13:11-0400Heart rate75 /min Evan Valorie DO Work Phone: [place] [address]Exymjjptnf32-41-1739 13:11-1653KjH1% (BldA) [Mass fraction]95 %Evan Valorie DO Work Phone: [place] [address]Dzsssaptbq22-87-2923 13:11-0400Systolic blood vfztmgyg410 mm[Hg]Evan Valorie DO Work Phone: [place] [address]Hnoqdbitfp11-56-3430 12:00-0400Body temperature 97.59 [degF]Chair [place] Work Phone: [facility]04-02-2025 12:00-0400Diastolic blood xkeclorv93 mm[Hg]Chair Laron Work Phone: [place] [address]-02-2025 12:00-0400Heart rate67 /min Chair [place] Work Phone: [place] [address]-02-2025 12:00-0400Respiratory rate 18 /minChair [place] Work Phone: [place] [address]-02-2025 12:00-0400Systolic blood uysjofpj442 mm[Hg]Chair [place] Work Phone: [place] [address]-02-2025 08:53-0400Body nuqgho365.6 cmJaimee Rachael REGISTERED REPRESENTATIVE.SIGNAL CONSTRUCTOR Work Phone: [facility]04-02-2025 08:53-0400Body mass index (BMI) [Ratio]25.68 kg/e2Pzblqu Rachael REGISTERED REPRESENTATIVE.SIGNAL CONSTRUCTOR Work Phone: [facility]04-02-2025 08:53-0400Body temperature 97.11 [degF]Trinh Rachael REGISTERED REPRESENTATIVE.SIGNAL CONSTRUCTOR Work Phone: [facility]04-02-2025 08:53-0400Body ujbjro85.1 kgJavierimee Rachael REGISTERED REPRESENTATIVE.SIGNAL CONSTRUCTOR Work Phone: [facility]04-02-2025 08:53-0400Diastolic blood ajchduhd42 mm[Hg]Trinh Rachael REGISTERED REPRESENTATIVE.SIGNAL CONSTRUCTOR Work Phone: [facility]04-02-2025 08:53-0400Heart rate75 /min Trinh Rachael REGISTERED REPRESENTATIVE.SIGNAL CONSTRUCTOR Work Phone: [facility]04-02-2025 08:53-0400Respiratory rate 16 /minJavierimee Rachael REGISTERED REPRESENTATIVE.SIGNAL CONSTRUCTOR Work Phone: [facility]04-02-2025 08:53-1814ViG4% (BldA) [Mass fraction]99 %Trinh Rachael REGISTERED REPRESENTATIVE.SIGNAL CONSTRUCTOR Work Phone: [facility]04-02-2025 08:53-0400Systolic blood ojyftdct925 mm[Hg]Trinh Rachael REGISTERED REPRESENTATIVE.SIGNAL CONSTRUCTOR Work Phone: [facility]02-05-2025 14:42-0500Body hvtnhu945.3 cmNicole Valorie DO Work Phone: noCox Walnut LawnWyimtkuudq07-08-9334 14:42-0500Body mass index (BMI) [Ratio]26.14 kg/q1Xxevbi Valorie DO Work Phone: noCox Walnut LawnVsiqcsaktz29-23-9651 14:42-0500Body hossgn09.29 kgNicole Valorie DO Work Phone: noCox Walnut LawnYwzsegvpqw00-15-8311 14:42-0500Diastolic blood cwxaffnl96 mm[Hg]Evan Valorie DO Work Phone: noCox Walnut LawnLroyuoweqa50-37-0590 14:42-0500Heart rate71 /min Evan Valorie DO Work Phone: noCox Walnut LawnSmxqsorpbp36-91-5442 14:42-5322QkY4% (BldA) [Mass fraction]97 %Evan Valorie DO Work Phone: noCox Walnut LawnTuwoeozovn30-19-5535 14:42-0500Systolic blood xvgartgw714 mm[Hg]Evan Valorie DO Work Phone: noCox Walnut LawnTvjcprnnch13-40-2439 11:20-0500Body temperature 97.39 [degF]Chair [place] Work Phone: [facility]02-05-2025 11:20-0500Diastolic blood mm[Hg]Chair [place] Work Phone: [facility]02-05-2025 11:20-0500Heart rate63 /min Chair [place] Work Phone: [place] [address]-05-2025 11:20-0500Respiratory rate 16 /minChair Laron Work Phone: [facility]02-05-2025 11:20-6287RnF9% (BldA) [Mass fraction]99 %Chair [place] Work Phone: [facility]02-05-2025 11:20-0500Systolic blood iqzwkoqt818 mm[Hg]Chair [place] Work Phone: [place] [address]-05-2025 08:36-0500Body bweatk861.6 cmTrinh Ramirez REGISTERED REPRESENTATIVE.SIGNAL CONSTRUCTOR Work Phone: [facility]02-05-2025 08:36-0500Body mass index (BMI) [Ratio]25.75 kg/c4Wkjwyz Rachael REGISTERED REPRESENTATIVE.SIGNAL CONSTRUCTOR Work Phone: [facility]02-05-2025 08:36-0500Body temperature 97.11 [degF]Trinh Rachael REGISTERED REPRESENTATIVE.[facility] Work Phone: [facility]02-05-2025 08:36-0500Body odowzy98.3 kgLce Rachael REGISTERED REPRESENTATIVE.SIGNAL CONSTRUCTOR Work Phone: [facility]02-05-2025 08:36-0500Diastolic blood ykkhkkpc45 mm[Hg]Trinh Rachael REGISTERED REPRESENTATIVE.[facility] Work Phone: [facility]02-05-2025 08:36-0500Heart rate74 /min Trinh Rachael REGISTERED REPRESENTATIVE.[facility] Work Phone: [facility]02-05-2025 08:36-0500Respiratory rate 16 /minTrinh Rachael REGISTERED REPRESENTATIVE.[facility] Work Phone: [facility]02-05-2025 08:36-9632ZaM2% (BldA) [Mass fraction]98 %Trinh Rachael REGISTERED REPRESENTATIVE.[facility] Work Phone: [facility]02-05-2025 08:36-0500Systolic blood fsgatnyl434 mm[Hg]Trinh Rachael REGISTERED REPRESENTATIVE.[facility] Work Phone: [facility]02-04-2025 09:00-0500Body .26 cmBenjamin Ball DO Work Phone: [facility]02-04-2025 09:00-0500 Body mass index (BMI) [Ratio]26.1 kg/f1Zcsrrukj Ball DO Work Phone: [facility]02-04-2025 09:00-0500 Body tcbxcu42.28 kgBenjamin Ball DO Work Phone: [facility]02-04-2025 09:00-0500 Diastolic blood avitadbc10 mm[Hg]Joby Ball DO Work Phone: [facility]02-04-2025 09:00-0500 Heart rate67 /minBenjamin Ball DO Work Phone: [facility]02-04-2025 09:00-0500 SaO2% (BldA) [Mass fraction]98 %Joby Ball DO Work Phone: [facility]02-04-2025 09:00-0500 Systolic blood oltxvjwh664 mm[Hg]Joby Ball DO Work Phone: [facility]12-16-2024 13:41-0500 Body sughdw006.8 cmBenjamin Murcek DO Work Phone: [facility] HospitalAxqiyruwyx77-84-7462 13:41-0500Body mass index (BMI) [Ratio]25.68 kg/p8Jsvgggpm Murcek DO Work Phone: [facility] HospitalIzldbyncmy90-89-1456 13:41-0500Body .19 kgBenjamin Murcek DO Work Phone: [facility] HospitalQvozrmseqo30-34-0628 10:40-0500Body temperature 98.4 [degF]Chair Laron Work Phone: [facility]12-11-2024 10:40-0500Diastolic blood dhpwkyxb59 mm[Hg]Chair [place] Work Phone: [facility]12-11-2024 10:40-0500Heart rate70 /min Chair [place] Work Phone: [facility]12-11-2024 10:40-0500Respiratory rate 16 /minChair [place] Work Phone: [facility]12-11-2024 10:40-0438HwH6% (BldA) [Mass fraction]100 %Chair Laron Work Phone: [facility]12-11-2024 10:40-0500Systolic blood mm[Hg]Chair Laron Work Phone: [facility]12-11-2024 08:47-0500Body sbzgue922.6 cmVmelissa Piper MD Work Phone: [facility]12-11-2024 08:47-0500Body mass index (BMI) [Ratio]25.17 kg/h3LvzghJoon Piper MD Work Phone: [facility]12-11-2024 08:47-0500Body temperature 97.39 [degF]Joon Piper MD Work Phone: [facility]12-11-2024 08:47-0500Body foaeta01.5 kgJoon Piper MD Work Phone: [facility]12-11-2024 08:47-0500Diastolic blood zljydoot70 mm[Hg]Joon Piper MD Work Phone: [facility]12-11-2024 08:47-0500Heart rate79 /min Joon Piper MD Work Phone: [facility]12-11-2024 08:47-0500Respiratory rate 16 /minJoon Piper MD Work Phone: [facility]12-11-2024 08:47-3961PgL1% (BldA) [Mass fraction]99 %Joon Piper MD Work Phone: [facility]12-11-2024 08:47-0500Systolic blood cnrjtull923 mm[Hg]Joon Piper MD Work Phone: [facility]12-06-2024 11:38-0500Diastolic blood mm[Hg]Joby Ball DO Work Phone: [facility]12-06-2024 11:38-0500 Heart rate94 /minBenjamin Ball DO Work Phone: [facility]12-06-2024 11:38-0500 Respiratory rate16 /minBenjamin Ball DO Work Phone: [facility]12-06-2024 11:38-0500 SaO2% (BldA) [Mass fraction]93 %Joby Ball DO Work Phone: [facility]12-06-2024 11:38-0500 Systolic blood fikgfnec890 mm[Hg]Joby Ball DO Work Phone: [facility]12-06-2024 10:49-0500 Body nwtkpyaxagp73.6 [degF]Joby Ball DO Work Phone: [phone]12-06-2024 10:29-0500 Inhaled oxygen flow rate0 L/minBenashley Ball DO Work Phone: [facility]12-06-2024 06:23-0500 Body .26 cmBenashley Ball DO Work Phone: [phone]12-06-2024 06:23-0500 Body xyrief85.37 kgBenashley Ball DO Work Phone: [facility]12-04-2024 11:26-0500 Body upjupzywpmp99.5 [degF]Chair Larry Work Phone: [facility]12-04-2024 11:26-0500Diastolic blood mm[Hg]Chair [place] Work Phone: [facility]12-04-2024 11:26-0500Heart rate63 /min Chair [place] Work Phone: [facility]12-04-2024 11:26-0500Respiratory rate 16 /minChair Laron Work Phone: [facility]12-04-2024 11:26-4935ZhL1% (BldA) [Mass fraction]99 %Chair [place] Work Phone: [facility]12-04-2024 11:26-0500Systolic blood xtuwhafc479 mm[Hg]Chair Laron Work Phone: [facility]12-04-2024 08:45-0500Body ulmhqh170.6 cmMindy Jennifer PA-C Work Phone: [facility]12-04-2024 08:45-0500Body mass index (BMI) [Ratio]25.81 kg/o6Oyfvm Jennifer PA-C Work Phone: [facility]12-04-2024 08:45-0500Body temperature 97.81 [degF]Wanda Jennifer PA-C Work Phone: [place] [address]-04-2024 08:45-0500Body hekdnr13.5 kgMindy Jennifer PA-C Work Phone: [facility]12-04-2024 08:45-0500Diastolic blood nnhickls69 mm[Hg]Wanda Jennifer PA-C Work Phone: [facility]12-04-2024 08:45-0500Heart rate66 /min Wanda Jennifer PA-C Work Phone: [facility]12-04-2024 08:45-0500Respiratory rate 18 /minMindy Jennifer PA-C Work Phone: [facility]12-04-2024 08:45-1757WcK1% (BldA) [Mass fraction]99 %Wanda Jennifer PA-C Work Phone: [facility]12-04-2024 08:45-0500Systolic blood ucofdutc443 mm[Hg]Wanda Jennifer PA-C Work Phone: [facility]11-20-2024 12:40-0500Body temperature 98.01 [degF]Chair [place] Work Phone: [facility]11-20-2024 12:40-0500Diastolic blood edajzwvi47 mm[Hg]Chair Laron Work Phone: [facility]11-20-2024 12:40-0500Heart rate70 /min Chair [place] Work Phone: [facility]11-20-2024 12:40-0500Respiratory rate 16 /minChair Laron Work Phone: [facility]11-20-2024 12:40-2297IuT7% (BldA) [Mass fraction]98 %Chair Laron Work Phone: [facility] CenterComment on above:[id number] 12:40-0500Systolic blood jatmwnlz856 mm[Hg]Chair Laron Work Phone: [facility]11-20-2024 08:59-0500Body xuhbvu030.6 cmTrinh Rachael REGISTERED REPRESENTATIVE.SIGNAL CONSTRUCTOR Work Phone: [facility] CenterComment on above:verified by 2 caregivers with shoes [id number] 08:59-0500Body mass index (BMI) [Ratio]25.91 kg/h3ObpndyTrinh Ramirez REGISTERED REPRESENTATIVE.SIGNAL CONSTRUCTOR Work Phone: [facility]11-20-2024 08:59-0500Body temperature 97.59 [degF]Trinh Rachael REGISTERED REPRESENTATIVE.SIGNAL CONSTRUCTOR Work Phone: [facility]11-20-2024 08:59-0500Body uknkev89.8 kgTrinh Ramirez REGISTERED REPRESENTATIVE.SIGNAL CONSTRUCTOR Work Phone: [facility]11-20-2024 08:59-0500Diastolic blood emogybri56 mm[Hg]Trinh Ramirez REGISTERED REPRESENTATIVE.SIGNAL CONSTRUCTOR Work Phone: [facility]11-20-2024 08:59-0500Heart rate69 /min Trinh Rossod REGISTERED REPRESENTATIVE.SIGNAL CONSTRUCTOR Work Phone: [facility]11-20-2024 08:59-0500Respiratory rate 18 /minTrinh Ramirez REGISTERED REPRESENTATIVE.SIGNAL CONSTRUCTOR Work Phone: [facility]11-20-2024 08:59-4233HvB3% (BldA) [Mass fraction]98 %Trinh Rachael REGISTERED REPRESENTATIVE.SIGNAL CONSTRUCTOR Work Phone: [facility]11-20-2024 08:59-0500Systolic blood nngpdiso679 mm[Hg]Trinh Ramirez APRN.SIGNAL CONSTRUCTOR Work Phone: [facility]11-13-2024 13:41-0500Body temperature 98.1 [degF]Chair Laron Work Phone: [facility]11-13-2024 13:41-0500Diastolic blood fcaifgcc27 mm[Hg]Chair Laron Work Phone: [facility]11-13-2024 13:41-0500Heart rate60 /min Chair Laron Work Phone: [facility]11-13-2024 13:41-0500Respiratory rate 16 /minChair Laron Work Phone: [facility]11-13-2024 13:41-1873GaV5% (BldA) [Mass fraction]100 %Chair Laron Work Phone: [facility]11-13-2024 13:41-0500Systolic blood empdwbxh908 mm[Hg]Chair Laron Work Phone: [facility]11-13-2024 09:16-0500Body fbbwev448.3 cmChair Laron Work Phone: [facility] CenterComment on above:2 caregivers, shoes on; CHAIM/[id number] 09:16-0500Body mass index (BMI) [Ratio]25.77 kg/z6Oisiz Laron Work Phone: [facility]11-13-2024 09:16-0500Body .1 kgChair Laron Work Phone: [facility]10-24-2024 11:03-0400Body isdpbu912.1 Magno Piper MD Work Phone: [facility]10-24-2024 11:03-0400Body mass index (BMI) [Ratio]26.13 kg/a4PoecxJoon Piper MD Work Phone: [facility]10-24-2024 11:03-0400Body temperature 97.3 [degF]Joon Piper MD Work Phone: [facility]10-24-2024 11:03-0400Body cajfpj75.1 kgJoon Piper MD Work Phone: [facility]10-24-2024 11:03-0400Diastolic blood pbneokfx46 mm[Hg]Joon Piper MD Work Phone: [facility]10-24-2024 11:03-0400Heart rate73 /min Joon Piper MD Work Phone: [facility]10-24-2024 11:03-0400Respiratory rate 16 /minJoon Piper MD Work Phone: [facility]10-24-2024 11:03-9050CgJ1% (BldA) [Mass fraction]99 %Joon Piper MD Work Phone: [facility]10-24-2024 11:03-0400Systolic blood ielodrpg588 mm[Hg]Joon Piper MD Work Phone: [facility]10-07-2024 13:35-0400Body .8 cmBenjamin Murcek DO Work Phone: [facility] HospitalRjljxmtkck22-85-6191 13:35-0400Body mass index (BMI) [Ratio]25.68 kg/u5Ogbeqanm Murcek DO Work Phone: [facility] HospitalRrnuyjixvw71-76-6201 13:35-0400Body aiqmlv42.19 kgBenjamin Murcek DO Work Phone: [facility] HospitalKeqrmeqgqm46-08-5004 14:05-0400Body idbkpe309.8 cmAngdedra Hitchcock CELL LINER Work Phone: [facility] HospitalMbipzofybf75-02-0937 14:05-0400Diastolic blood kinawqiv99 mm[Hg]Silke Hitchcock CELL LINER Work Phone: [facility] HospitalTnsgctrsmj65-94-9026 14:05-0400Heart rate74 /min Silke Hitchcock CELL LINER Work Phone: NOCox Walnut LawnHfwcoogevd61-00-6415 14:05-9489OsT2% (BldA) [Mass fraction]93 %Silke Hitchcock CELL LINER Work Phone: NOCox Walnut LawnUbaloiawqo31-99-2668 14:05-0400Systolic blood zrnedkee929 mm[Hg]Silke Hitchcock CELL LINER Work Phone: [facility] HospitalEvfflajbfu79-61-6738 09:57-0400Body .3 cmMejia Buckner MD Work Phone: [facility]09-17-2024 09:57-0400Body mass index (BMI) [Ratio]25.99 kg/t0YubrcaohmvzMejia Buckner MD Work Phone: [phone]09-17-2024 09:57-0400Body jelxlp85.83 kgMejia Buckner MD Work Phone: [facility]09-17-2024 09:57-0400Diastolic blood uzfbzqot97 mm[Hg]Mejia Buckner MD Work Phone: [facility]09-17-2024 09:57-0400Heart rate 77 /minMejia Buckner MD Work Phone: [facility]09-17-2024 09:57-0400Systolic blood uwkawfps620 mm[Hg]Mejia Buckner MD Work Phone: [facility]09-16-2024 15:57-0400Body spkllo860.26 cm[facility]09-16-2024 15:57-0400Body mass index (BMI) [Ratio]25.7 kg/j6ByfxnjtfrSelect [facility] [place]09-16-2024 15:57-0400Body mobysyxislv66.2 [degF][facility]09-16-2024 15:57-0400Body eliezh91.98 kgSelect [facility] [place]09-16-2024 15:57-0400Diastolic blood qkqdyuht74 mm[Hg][facility] 06-23-2024 15:57-0400Heart rate82 /[facility] 06-23-2024 15:57-0400Respiratory rate18 /[facility] 06-23-2024 15:57-0410IlL9% (BldA) [Mass fraction]96 %[facility]09-16-2024 15:57-0400Systolic blood gryjjlby910 mm[Hg][facility]08-14-2024 09:32-0400Body hyltfu096.8 cm[facility]08-14-2024 09:32-0400Body mass index (BMI) [Ratio]25.7 kg/e0LiyojobziSelect [facility] [place]08-14-2024 09:32-0400Body novefl63.19 [facility]08-14-2024 09:32-0400Diastolic blood coofpzmo34 mm[Hg] [facility]08-14-2024 09:32-0400Heart rate63 /[facility]08-14-2024 09:32-0400Respiratory rate12 /[facility]08-14-2024 09:32-0400Systolic blood mm[Hg] [facility]08-06-2024 14:09-0400Body qhelhl124.3 cm Mejia Buckner MD Work Phone: [facility]08-06-2024 14:09-0400Body mass index (BMI) [Ratio]25.84 kg/f0FyoiepkhdieMejia Buckner MD Work Phone: [facility]08-06-2024 14:09-0400Body .38 kgMejia Buckner MD Work Phone: [facility]08-06-2024 14:09-0400Diastolic blood pwxigubu93 mm[Hg]Mejia Buckner MD Work Phone: [facility]08-06-2024 14:09-0400Heart rate 68 /minMejia Buckner MD Work Phone: [facility]08-06-2024 14:09-0400Systolic blood kezskima300 mm[Hg]Mejia Buckner MD Work Phone: [facility]08-01-2024 10:37-0400Body .1 cmMindy Jennifer PA-C Work Phone: [facility]08-01-2024 10:37-0400Body mass index (BMI) [Ratio]26.13 kg/d4Gvqem Jennifer PA-C Work Phone: [facility]08-01-2024 10:37-0400Body temperature 97.3 [degF]Wanda Jennifer PA-C Work Phone: [facility]08-01-2024 10:37-0400Body ybppij53.1 kgMindy Jennifer PA-C Work Phone: [facility]08-01-2024 10:37-0400Diastolic blood pjnfijpc73 mm[Hg]Wanda Jennifer PA-C Work Phone: [facility]08-01-2024 10:37-0400Heart rate87 /min Wanda Jennifer PA-C Work Phone: [facility]08-01-2024 10:37-0400Respiratory rate 18 /minMindy Jennifer PA-C Work Phone: [facility]08-01-2024 10:37-4068VsA4% (BldA) [Mass fraction]98 %Wanda Jennifer PA-C Work Phone: [facility]08-01-2024 10:37-0400Systolic blood ndgukxwr927 mm[Hg]Wanda Jennifer PA-C Work Phone: [facility]04-16-2024 10:14-0400Body quewkg897.[address]04-16-2024 10:14-0400Body mass index (BMI) [Ratio] 25.84 kg/m[address]04-16-2024 10:14-0400Body oywdyw46.[address]04-11-2024 10:47-0400Body .1 cmVmelissa Piper MD Work Phone: [facility]04-11-2024 10:47-0400Body temperature 97.59 [degF]Joon Piper MD Work Phone: [facility]04-11-2024 10:47-0400Body nbopgt06.2 kgJoon Piper MD Work Phone: [facility]04-11-2024 10:47-0400Diastolic blood lfkalxxg60 mm[Hg]Joon Piper MD Work Phone: [facility]04-11-2024 10:47-0400Heart rate76 /min Joon Piper MD Work Phone: [facility]04-11-2024 10:47-0400Respiratory rate 16 /minJoon Piper MD Work Phone: [facility]04-11-2024 10:47-8270KeT5% (BldA) [Mass fraction]95 %Joon Piper MD Work Phone: [facility]04-11-2024 10:47-0400Systolic blood gijdaaet733 mm[Hg]Joon Piper MD Work Phone: [facility]04-02-2024 09:41-0400Body .3 cmOlamide RICO Work Phone: [facility]04-02-2024 09:41-0400Body mass index (BMI) [Ratio]26.73 kg/h6ZcchcwpOlamide RICO Work Phone: [employer] Bqrkgd69-36-1880 09:41-0400Body .1 kgOlamide Velasquez REGISTERED REPRESENTATIVE-SIGNAL CONSTRUCTOR Work Phone: [facility] Epexsk84-98-2008 09:41-0400Diastolic blood jxpqpire61 mm[Hg]Olamide Velasquez REGISTERED REPRESENTATIVE-SIGNAL CONSTRUCTOR Work Phone: [facility] Nppmrz39-32-0847 09:41-0400Systolic blood hrzuynqp440 mm[Hg]Olamide Velasquez REGISTERED REPRESENTATIVE-SIGNAL CONSTRUCTOR Work Phone: [facility] Catnoe03-57-9962 10:30-0500Body utrhjh093.8 cmJosy Santana Other [facility] [employer] Other 01-03-2024 10:30-0500Body mass index (BMI) [Ratio] 25.19 kg/p0NxriszJosy Santana Other [facility] Other 01-03-2024 10:30-0500Body .65 kgJosy Santana Other [facility] Other 01-03-2024 10:30-0500Diastolic blood ckdzsbik65 mm[Hg] Josy Santana Other [facility] Other 01-03-2024 10:30-0500Systolic blood fvfvqjle526 mm[Hg] Josy Santana Other [facility] Other [id number] 10:50-0400Body .1 Magno Piper MD Work Phone: [facility]10-26-2023 10:50-0400Body temperature 97.39 [degF]Joon Piper MD Work Phone: [facility]10-26-2023 10:50-0400Body .01 kgJoon Piper MD Work Phone: [facility]10-26-2023 10:50-0400Diastolic blood rqpypqla93 mm[Hg]Joon Piper MD Work Phone: [facility]10-26-2023 10:50-0400Heart rate76 /min Joon Piper MD Work Phone: [facility]10-26-2023 10:50-0400Respiratory rate 18 /minJoon Piper MD Work Phone: [facility]10-26-2023 10:50-2956LiE8% (BldA) [Mass fraction]97 %Joon Piper MD Work Phone: [facility]10-26-2023 10:50-0400Systolic blood aqrcmcwz780 mm[Hg]Joon Piper MD Work Phone: [facility]08-30-2023 15:00-0400Body bmexcn489.8 cmBenjamin Ball Other [facility] Other 08-30-2023 15:00-0400Body mass index (BMI) [Ratio] 25.28 kg/f4Hteqwmyg Ball Other [facility] Other 08-30-2023 15:00-0400Body whyype58.92 kgBenjamin Ball Other [facility] Other 08-30-2023 15:00-0400Diastolic blood mm[Hg] Joby Ball Other [facility] Other 08-30-2023 15:00-0400Respiratory rate12 /minBenjamin Ball Other [facility] Other 08-30-2023 15:00-0400Systolic blood xuymqzce929 mm[Hg] [facility] Other 08-21-2023 13:54-0400Body nopujy508.1 cmVmelissa Piper MD Work Phone: [facility]08-21-2023 13:54-0400Body temperature 97.5 [degF]Joon Piper MD Work Phone: [place] [address]-21-2023 13:54-0400Body ixevah66.29 kgJoon Piper MD Work Phone: [place] [address]-21-2023 13:54-0400Diastolic blood dkmuioky33 mm[Hg]Joon Piper MD Work Phone: [facility]08-21-2023 13:54-0400Heart rate75 /min Joon Piper MD Work Phone: [place] [address]-21-2023 13:54-0400Respiratory rate 16 /minJoon Piper MD Work Phone: [place] [address]-21-2023 13:54-0460KmW8% (BldA) [Mass fraction]100 %Joon Piper MD Work Phone: [place] [address]-21-2023 13:54-0400Systolic blood admzwope755 mm[Hg]Joon Piper MD Work Phone: [facility]08-02-2023 12:35-0400Diastolic blood ddfinwxu78 mm[Hg]Chair [place] Work Phone: [place] [address]-02-2023 12:35-0400Heart rate63 /min Chair [place] Work Phone: [facility]08-02-2023 12:35-0400Respiratory rate 16 /minChair [place] Work Phone: [facility]08-02-2023 12:35-9175XaN0% (BldA) [Mass fraction]98 %Chair [place] Work Phone: [facility]08-02-2023 12:35-0400Systolic blood uqzzyncz272 mm[Hg]Chair Laorn Work Phone: [facility]08-02-2023 10:56-0400Body temperature 98.2 [degF]Chair [place] Work Phone: [facility]07-26-2023 12:46-0400Body temperature 97.9 [degF]Chair Larry Work Phone: [facility]07-26-2023 12:46-0400Diastolic blood uskguwmx34 mm[Hg]Chair Larry Work Phone: [facility]07-26-2023 12:46-0400Heart rate60 /min Chair [place] Work Phone: [facility]07-26-2023 12:46-0400Respiratory rate 18 /minChair [place] Work Phone: [facility]07-26-2023 12:46-3353EuQ6% (BldA) [Mass fraction]98 %Chair Larry Work Phone: [facility]07-26-2023 12:46-0400Systolic blood okcyhzug192 mm[Hg]Chair Larry Work Phone: [facility]07-19-2023 09:29-0400Body makino187.1 cmVmelissa Piper MD Work Phone: [facility]07-19-2023 09:29-0400Body temperature 97.39 [degF]Joon Piper MD Work Phone: [facility]07-19-2023 09:29-0400Body jqpjme72.83 kgJoon Piper MD Work Phone: [facility]07-19-2023 09:29-0400Diastolic blood ucnfksip05 mm[Hg]Joon Piper MD Work Phone: [place] [address]-19-2023 09:29-0400Heart rate74 /min Joon Piper MD Work Phone: [place] [address]-19-2023 09:29-0400Respiratory rate 16 /minJoon Piper MD Work Phone: [place] [address]-19-2023 09:29-0388FjS7% (BldA) [Mass fraction]100 %Joon Piper MD Work Phone: [place] [address]-19-2023 09:29-0400Systolic blood hxgtkugj275 mm[Hg]Joon Piper MD Work Phone: [facility]07-12-2023 15:45-0400Diastolic blood aqgqmefy59 mm[Hg]Chair [place] Work Phone: [facility]07-12-2023 15:45-0400Heart rate64 /min Chair [place] Work Phone: [place] [address]-12-2023 15:45-0400Respiratory rate 18 /minChair [place] Work Phone: [facility]07-12-2023 15:45-8768LkN9% (BldA) [Mass fraction]98 %Chair [place] Work Phone: [facility]07-12-2023 15:45-0400Systolic blood rhdtgjgo661 mm[Hg]Chair [place] Work Phone: [place] [address]-12-2023 13:48-0400Body temperature 97.81 [degF]Chair [place] Work Phone: [place] [address]-12-2023 09:47-0400Body vuarpp459.1 cmZeynep Burton APRN.SIGNAL CONSTRUCTOR Work Phone: [facility]07-12-2023 09:47-0400Body temperature 97.9 [degF]Zeynep Micheal REGISTERED REPRESENTATIVE.SIGNAL CONSTRUCTOR Work Phone: [facility]07-12-2023 09:47-0400Body jtoqbo16.93 kgZeynep Burton REGISTERED REPRESENTATIVE.SIGNAL CONSTRUCTOR Work Phone: [facility]07-12-2023 09:47-0400Diastolic blood vbbztocx54 mm[Hg]Zeynep Burton REGISTERED REPRESENTATIVE.SIGNAL CONSTRUCTOR Work Phone: [facility]07-12-2023 09:47-0400Heart rate74 /min Zeynep Burton REGISTERED REPRESENTATIVE.SIGNAL CONSTRUCTOR Work Phone: [facility]07-12-2023 09:47-0400Respiratory rate 16 /minZeynep Burton REGISTERED REPRESENTATIVE.SIGNAL CONSTRUCTOR Work Phone: [facility]07-12-2023 09:47-6734LtD4% (BldA) [Mass fraction]100 %Zeynep Burton REGISTERED REPRESENTATIVE.SIGNAL CONSTRUCTOR Work Phone: [facility]07-12-2023 09:47-0400Systolic blood ypabmgch343 mm[Hg]Zeynep Burton REGISTERED REPRESENTATIVE.SIGNAL CONSTRUCTOR Work Phone: [facility]05-05-2023 08:32-0400Body gbvedv576.3 cmVmelissa Piper MD Work Phone: [facility]05-05-2023 08:32-0400Body temperature 97.59 [degF]Joon Piper MD Work Phone: [facility]05-05-2023 08:32-0400Body skmigb23.65 kgJoon Piper MD Work Phone: [facility]05-05-2023 08:32-0400Diastolic blood iyjtkeao01 mm[Hg]Joon Piper MD Work Phone: [facility]05-05-2023 08:32-0400Heart rate73 /min Joon Piper MD Work Phone: [facility]05-05-2023 08:32-0400Respiratory rate 16 /minJoon Piper MD Work Phone: [facility]05-05-2023 08:32-5777EgM2% (BldA) [Mass fraction]99 %Joon Piper MD Work Phone: [facility]05-05-2023 08:32-0400Systolic blood xpvutlgo240 mm[Hg]Joon Piper MD Work Phone: [facility]02-03-2023 09:33-0500Body .6 cmZeynep Burton REGISTERED REPRESENTATIVE.SIGNAL CONSTRUCTOR Work Phone: [facility]02-03-2023 09:33-0500Body temperature 97.2 [degF]Zeynep Burton REGISTERED REPRESENTATIVE.SIGNAL CONSTRUCTOR Work Phone: [facility]02-03-2023 09:33-0500Body wkyxva70.65 kgZeynep Burton APRN.SIGNAL CONSTRUCTOR Work Phone: [facility]02-03-2023 09:33-0500Diastolic blood rywswhrj01 mm[Hg]Zeynep Burton REGISTERED REPRESENTATIVE.SIGNAL CONSTRUCTOR Work Phone: [facility]02-03-2023 09:33-0500Heart rate77 /min Zeynep Burton APRN.SIGNAL CONSTRUCTOR Work Phone: [facility]02-03-2023 09:33-0500Respiratory rate 16 /minZeynep Burton APRN.SIGNAL CONSTRUCTOR Work Phone: [facility]02-03-2023 09:33-9693FnF8% (BldA) [Mass fraction]99 %Zeynep Burton REGISTERED REPRESENTATIVE.SIGNAL CONSTRUCTOR Work Phone: [facility]02-03-2023 09:33-0500Systolic blood voexrcis732 mm[Hg]Zeynep Burton REGISTERED REPRESENTATIVE.SIGNAL CONSTRUCTOR Work Phone: [facility]11-04-2022 09:14-0400Body mtkijt947.6 Magno Piper MD Work Phone: [facility]11-04-2022 09:14-0400Body temperature 97.11 [degF]Joon Piper MD Work Phone: [facility]11-04-2022 09:14-0400Body agawei53.46 kgJoon Piper MD Work Phone: [facility]11-04-2022 09:14-0400Diastolic blood zjocfbdp40 mm[Hg]Joon Piper MD Work Phone: [facility]11-04-2022 09:14-0400Heart rate72 /min Joon Piper MD Work Phone: [facility]11-04-2022 09:14-0400Respiratory rate 16 /minJoon Piper MD Work Phone: [facility]11-04-2022 09:14-5815UrJ5% (BldA) [Mass fraction]99 %Joon Piper MD Work Phone: [facility]11-04-2022 09:14-0400Systolic blood ulhbzrdg186 mm[Hg]Joon Piper MD Work Phone: [facility]08-05-2022 09:03-0400Body lcbnan912.6 cmVmelissa Piper MD Work Phone: [facility]08-05-2022 09:03-0400Body temperature 97.5 [degF]Joon Piper MD Work Phone: [facility]08-05-2022 09:03-0400Body quldoi47.65 kgJoon Piper MD Work Phone: [facility]08-05-2022 09:03-0400Diastolic blood kxdggmoz57 mm[Hg]Joon Piper MD Work Phone: [facility]08-05-2022 09:03-0400Heart rate79 /min Joon Piper MD Work Phone: [facility]08-05-2022 09:03-0400Respiratory rate 16 /minJoon Piper MD Work Phone: [facility]08-05-2022 09:03-9433DgF1% (BldA) [Mass fraction]98 %Joon Piper MD Work Phone: [facility]08-05-2022 09:03-0400Systolic blood pxduqqgm231 mm[Hg]Joon Piper MD Work Phone: [phone]05-06-2022 08:44-0400Body vnutqu840.6 cmZeynep Burton REGISTERED REPRESENTATIVE.SIGNAL CONSTRUCTOR Work Phone: [phone] [place], [place] [address]05-06-2022 08:44-0400Body temperature 97.59 [degF]Zeynep Burton REGISTERED REPRESENTATIVE.SIGNAL CONSTRUCTOR Work Phone: [phone])5-[address] [place], [place] [address]05-06-2022 08:44-0400Body hqocly06.1 kgZeynep Burton APRN.SIGNAL CONSTRUCTOR Work Phone: [phone]05-06-2022 08:44-0400Diastolic blood gqrheacl53 mm[Hg]Zeynep Burton APRN.SIGNAL CONSTRUCTOR Work Phone: [phone]05-06-2022 08:44-0400Heart rate81 /min Zeynep Burton APRN.SIGNAL CONSTRUCTOR Work Phone: [phone] [place], [place] [address]05-06-2022 08:44-0400Respiratory rate 16 /minZeynep Burton APRN.SIGNAL CONSTRUCTOR Work Phone: [phone]05-06-2022 08:44-5999NpT7% (BldA) [Mass fraction]99 %Zeynep Burton APRN.SIGNAL CONSTRUCTOR Work Phone: [facility]05-06-2022 08:44-0400Systolic blood sytprnhg385 mm[Hg]Zeynep Burton APRN.SIGNAL CONSTRUCTOR Work Phone: [phone] [place] [address] Encounters Encounter DateEncounter TypeCare ProviderFacilityStart: 04-01-2025 End: 28-69-9641Lseoejvsz encounterLaura Genia DAVILAh Work Phone: [facility] -3Comment on above:Medication Assistance ([employer] PAP application )Start: 03-04-2025 End: 45-49-7384xmynwpvldkRJDZALQY E BALLFacility:[facility]art: 02-25-2025 End: 94-62-4971xsbnrcvylbMQSVOOOD E BALLFacility:[facility]art: 01-14-2025 End: 48-74-8890Gmxmip-up encounterTrinh Ramirez REGISTERED REPRESENTATIVE.BELINDA Work Phone: Hematology/OncologyComment on above:ResultsStart: 01-12-2025 End: 38-52-1457Cspmsu flowsheetNicole Valorie DO Work Phone: aNA BELLEVUEStart: 01-12-2025 End: 46-97-0067Vqnqxv flowsheetNicole Valorie DO Work Phone: aNA BELLEVUEStart: 01-12-2025 End: 41-83-9296Hyuuzz outpatient visit 25 minutesNicole Valorie DO Work Phone: aNA BELLEVUEComment on above:TIANNA (obstructive sleep apnea) (Primary Dx); Hypersomnia; Snoring; NumbnessStart: 01-12-2025 End: 97-42-6356bhtnzbtcuySENCTT DANNERNot AvailableStart: 01-07-2025 End: 82-31-3377Ixxzgm outpatient visit 25 minutesTrinh Ramirez REGISTERED REPRESENTATIVE.SIGNAL CONSTRUCTOR Work Phone: Hematology/OncologyComment on above:Waldenstrom macroglobulinemia (Primary Dx); Paraneoplastic neuropathy (HCC); Malaise and fatigueStart: 01-07-2025 End: 97-40-9323muudirwcrlCejba 8 [place] Work Phone: Hematology/OncologyComment on above:Waldenstrom macroglobulinemia (Primary Dx)Start: 12-29-2024 End: 29-72-8422Ypdzuaipj encounterTrinh Ramirez APRN.BELINDA Work Phone: Hematology/OncologyComment on above:Lab OrdersStart: 12-11-2024 End: 48-76-3410biwokatqgxKJDIOX DANNERNot AvailableStart: 12-11-2024 End: 34-91-2927Hcfozo flowsheetNicole Valorie DO Work Phone: aZULEIKA BELLEVUEStart: 12-11-2024 End: 81-52-6896Myivyu flowsheetNicole Valorie DO Work Phone: aZULEIKA BELLEVUEStart: 11-17-2024 End: 38-67-1884Lnqbyt-up encounterTrinh Ramirez REGISTERED REPRESENTATIVE.SIGNAL CONSTRUCTOR Work Phone: Hematology/OncologyStart: 11-12-2024 End: 44-69-5528xdotrmgzbyIVTTTL DANNERNot AvailableStart: 11-12-2024 End: 62-94-5311Ysnxqq flowsheetNicole Valorie DO Work Phone: aNA NORWALKStart: 11-12-2024 End: 11-05-7826Oigmvo flowsheetNicole Valorie DO Work Phone: aNA NORWALKStart: 11-12-2024 End: 09-77-2243gweffctgspYwmlk 8 [place] Work Phone: Hematology/OncologyComment on above:Waldenstrom macroglobulinemia (Primary Dx)Start: 11-12-2024 End: 55-70-5263Ooeywz outpatient visit 25 Josiah Ramirez REGISTERED REPRESENTATIVE.SIGNAL CONSTRUCTOR Work Phone: Hematology/OncologyComment on above:Waldenstrom macroglobulinemia (Primary Dx); Paraneoplastic neuropathy (HCC)TIANNA (obstructive sleep apnea) (Primary Dx); Hypersomnia; Snoring; NumbnessStart: 11-12-2024 End: 72-79-3248kprczllsjyABSIEN ROODFacility:[facility]ertart: 11-11-2024 End: 00-64-9204hxyqayopeyUeoyogdh Ball DO Work Phone: [facility] Work Phone: Start: 11-11-2024 End: 88-78-7719Gvjtowt encounter procedureBenashley Mays DO Work Phone: [facility] Work Phone: Start: 11-05-2024 End: 34-92-1108Qovtklgfr encounterJaimee Rachael LAND.SIGNAL CONSTRUCTOR Work Phone: Hematology/OncologyComment on above:Lab OrdersStart: 10-29-2024 End: 75-25-2056Dasayo flowsheetBenjamin W Murcek DO Work Phone: [facility] SANDUSKYStart: 10-29-2024 End: 24-87-0473Dfimnq flowsheetBenjamin W Murcek DO Work Phone: [facility] SANDUSKYStart: 10-29-2024 End: 58-81-0633Fvsnsx follow up visit related to original pxBenjamin W Murcek DO Work Phone: [facility] E[facility] SANDUSKYComment on above:Obstructive sleep apnea (Primary Dx)Start: 10-29-2024 End: 55-24-3910pucouckdmsEWFLZGZO W MURCEKNot AvailableStart: 09-22-2024 End: 28-20-1328Wcpvvh flowsheetBenjamin W Murcek DO Work Phone: noMS ENT SANDUSKYStart: 09-22-2024 End: 82-91-0228Uoncho flowsheetBenjamin W Murcek DO Work Phone: [facility] SANDUSKYStart: 09-22-2024 End: 38-75-1688Dppbzq follow up visit related to original pxBenjamin W Murcek DO Work Phone: noMS ENT SANDUSKYComment on above:Obstructive sleep apnea (Primary Dx)Start: 09-22-2024 End: 21-09-1339wkhaqwshgzCEJSRBDA W MURCEKNot AvailableStart: 09-17-2024 End: 70-70-1520Jznxep outpatient visit 25 minutesJoon Piper MD Work Phone: Hematology/OncologyComment on above:Waldenstrom macroglobulinemia (Primary Dx); Paraneoplastic neuropathy (HCC); Malaise and fatigueStart: 09-17-2024 End: 43-19-0182xjqhrcmgjsSogva 8 [place] Work Phone: Hematology/OncologyComment on above:Waldenstrom macroglobulinemia (Primary Dx)Start: 64-20-5577Kcl-patient / Non-visitBenjamin Ball DO Work Phone: [facility] Work Phone: Start: 09-12-2024 End: 33-69-7274Ytefgciv Result EncounterBenjamin W Murcek DO Work Phone: noms External Department UnsolicitedStart: 09-12-2024 End: 06-93-0758Silmouks Result EncounterBenjamin W Murcek DO Work Phone: n[facility] External Department UnsolicitedStart: 09-12-2024 End: 68-78-8074Zfqxvtcel to same day surgery centerBenjamin Ball DO Work Phone: [facility] CampusStart: 09-12-2024 End: 90-64-2812gaeukndtxkHklxwfwe MurcekFacility:[facility] Hospitaltart: 09-10-2024 End: 44-03-0741Ceqvbk outpatient visit 15 minutesWanda Rodriguez PA-C Work Phone: Hematology/OncologyComment on above:Waldenstrom macroglobulinemia (Primary Dx)Start: 09-10-2024 End: 62-17-0644kzwmjpdlqfFzguz 6 [place] Work Phone: Hematology/OncologyComment on above:Waldenstrom macroglobulinemia (Primary Dx)Start: 00-02-3333Esc-patient / Non-visitBenjamin Ball DO Work Phone: [facility] Work Phone: Start: 09-01-2024 End: 74-05-0341Icaxnuowj encounterJoon Piper MD Work Phone: Cancer Appts MCComment on above:Appointment Cancelled Start: 08-29-2024 End: 99-23-4347xtxclhncnwHfzkvvhw EbenezerFacility:[facility] Hospitaltart: 59-23-9536Trxhmyexw for preprocedural cardiovascular examination Joby Fernandez [facility] GroupStart: 08-29-2024 End: 21-83-1416Rvwhjrs encounter procedureBenjamin Ball DO Work Phone: [facility]vm-Fgglhaeb Testing Work Phone: Start: 08-27-2024 End: 04-30-6940Guagne outpatient visit 25 Josiah Ramirez APRN.CNP Work Phone: Hematology/OncologyComment on above:Waldenstrom macroglobulinemia (Primary Dx); Malaise and fatigueStart: 08-27-2024 End: 14-50-3208zabdwgzcanCgdgb 9 [place] Work Phone: Hematology/OncologyComment on above:Waldenstrom macroglobulinemia (Primary Dx)Start: 08-20-2024 End: 59-90-3367pkieprknhpTtmop 7 [place] Work Phone: Hematology/OncologyComment on above:Waldenstrom macroglobulinemia (Primary Dx)Start: 85-75-7293Dql-patient / Non-visitBenjamin Ball DO Work Phone: [facility]Former[facility] Work Phone: Start: 73-39-7806Ibb-patient / Non-visitBenjamin Ball DO Work Phone: [facility] Work Phone: Start: 08-13-2024 End: 02-46-4802whnxwgtmcyEZEADFNI E BALLFacility:[facility]ertart: 07-31-2024 End: 66-41-6526onnuufiulhEEKBKUQR E BALLFacility:[facility] Centertart: 07-31-2024 End: 57-04-8476Gurqny outpatient visit 25 minutesJoon Piper MD Work Phone: Hematology/OncologyComment on above:Waldenstrom macroglobulinemia (Primary Dx); Paraneoplastic neuropathy (HCC); Malaise and fatigue; Monoclonal gammopathy; Malignant lymphoma, lymphoplasmacytic (HCC)Start: 07-24-2024 End: 08-95-7951qpkpezsckeOWQDNUGQ E BALLFacility:[facility]ertart: 07-14-2024 End: 29-83-5057Dnlfxz flowsheetBenjamin W Murcek DO Work Phone: [facility] SANDUSKYStart: 07-14-2024 End: 65-35-1890Ewptcy flowsheetBenjamin W Murcek DO Work Phone: [facility] SANDUSKYStart: 07-14-2024 End: 98-21-6254Pipnll outpatient visit 25 minutesBenjamin W Murcek DO Work Phone: [facility] E[facility] SANDUSKYComment on above:Obstructive sleep apnea (Primary Dx); Intolerance of continuous positive airway pressure (CPAP) ventilationStart: 07-14-2024 End: 67-17-1704tclkflcxosELNGOCDB W MURCEKNot AvailableStart: 07-01-2024 End: 98-85-6989Amovkd outpatient visit 25 minutesSilke Hitchcock NP Work Phone: [facility] ROUTEComment on above:TIANNA (obstructive sleep apnea) (Primary Dx); Hypersomnia; Snoring; Fatigue, unspecified typeStart: 07-01-2024 End: 12-30-4293Tytkdmywa Aldo Herrera [facility]ITALPro[facility] Physicians General SurgeryStart: 07-01-2024 End: 48-67-5498wqcupsxjhxZXDGRK GILLMORNot AvailableStart: 06-30-2024 End: 31-68-3816nhgqgcxttlHAXFELOZ W MURCEKNot AvailableStart: 06-30-2024 End: 23-67-3683Yxeleth encounter procedureJoby Sol DO Work Phone: NOMB EXT DEPComment on above:TIANNA (obstructive sleep apnea) (Primary Dx)Start: 06-24-2024 End: 72-36-1164kxljsqjjqbRLBOKRZRZCNChildren's Hospital Los Angelestart: 06-24-2024 End: 36-74-6862Gqnvlz outpatient visit 15 minutesMejia Buckner MD Work Phone: [facility] General SurgeryComment on above: Epidermoid cyst of skin of chest (Primary Dx)Start: 06-24-2024 End: 78-21-9887cjahmsrmurXOGGPPLFYGQLocated within [facility] Start: 06-23-2024 End: 55-58-0373lpwpeikbkqEsvzisuyyHolzer Medical Center [facility] Work Phone: Start: 06-23-2024 End: 42-11-3322Hyjyabj encounter procedureUn[facility] [place] Work Phone: Start: 19-77-8142Esd-patient / Non-visitFirinova [facility] Work Phone: Start: 05-21-2024 End: 54-81-5596nhskkorjmwWwlzsttciHolzer Medical Center [facility] Work Phone: Start: 05-21-2024 End: 30-84-2576Rtsikfpxr for general adult medical examination without abnormal findingsSheltering Arms Hospitaltart: 05-21-2024 End: 19-80-0591Mwsozro encounter procedureUnc Health [facility] Work Phone: Start: 05-16-2024 End: 17-78-9703Rwtavmnsk encounterErna Sullivan [facility] General SurgeryStart: 05-13-2024 End: 88-19-0160Sqteno outpatient new 30 minutesMejia Buckner MD Work Phone: [facility] Phys[facility] General SurgeryComment on above: Infected epidermoid cyst (Primary Dx)Start: 05-13-2024 End: 02-16-6439emjsghhwjlAWRZJJZHWAJSelect [facility] Start: 05-08-2024 End: 71-57-7943Vwufmkgpq encounterWanda Rodriguez PA-C Work Phone: Cancer Appts MCComment on above:Future Appointment Start: 05-08-2024 End: 79-87-3147pcanfjbgfjKJNDTLPF E BALLFacility:[facility] Centertart: 05-08-2024 End: 69-87-0137Ucegov outpatient visit 25 minutesWanda Rodriguez PA-C Work Phone: Hematology/OncologyComment on above:Waldenstrom macroglobulinemia (HCC) (Primary Dx); Type 2 diabetes mellitus with diabetic polyneuropathy, without long-term current use of insulin (HCC); Paraneoplastic neuropathy (HCC)Start: 90-11-7335Sgn-patient / Non-visitUnc Health [facility] Physician GroupFormerly [facility] Work Phone: Start: 04-17-2024 End: 72-11-3389tkrbndenajUKKTRAPK E BALLFacility:[facility] Centertart: 03-18-2024 End: 47-38-9717uuyhtmnvslTRKMQKIY W MURCEKNot AvailableStart: 02-13-2024 End: 76-94-7370xrajctrxdlFJYRTU GILLMORNot AvailableStart: 01-31-2024 End: 14-14-5761Kprusfmxt encounterEkaterina Herrera CMAProMedica Physicians General SurgeryStart: 01-30-2024 End: 91-66-1047Pltqvw OnlyLazara Dumas DO Work Phone: [facility] General SurgeryStart: 01-29-2024 End: 68-70-9530Pjclicfobe and management of inpatientALISON SAURABH Franco [facility] [place]gotart: 01-28-2024 End: 82-86-3812Ibxcztcgbm and management of inpatientMICNAT Deras [facility] [place]gotart: 01-22-2024 End: 00-35-4843onrzicojdiOmp Pat Phone Call Provider 1PProMedica [facility] - Pre AdmitStart: 03-63-8920Wqlvjurpf encounterSelfMobile ServicesComment on above:[address] ([facility] [place]/); Initial ConsultStart: 01-22-2024 End: 36-65-6366qvqsnqrtglOLMKMOMI E BALLProUT Health Hendersontart: 01-17-2024 End: 36-51-3884Ckjwnb outpatient visit 15 minutesJoon Piper MD Work Phone: Hematology/OncologyComment on above:Waldenstrom macroglobulinemia (HCC) (Primary Dx); Paraneoplastic neuropathy (HCC)Start: 78-20-7622Dxiafidgz encounterAlice Montelongo RNHematology/OncologyComment on above:Treatment PlanningStart: 01-08-2024 End: 86-19-8864Tsndow outpatient new 30 minutesMoiseslone peak hospital Dequan Velasquez APRN-SIGNAL CONSTRUCTOR Work Phone: [facility] General SurgeryComment on above: Encounter for colonoscopy due to history of colonic polyp (Primary Dx); Gastroesophageal reflux disease, unspecified whether esophagitis presentStart: 01-08-2024 End: 59-54-2156qdwyvswahxAXLXSOCProsser [facility] Hospital [facility] Start: 80-43-7556Kmjrhm OnlyNot In System Ref ProvProMedica Physicians General SurgeryStart: 10-24-2023 End: 12-42-5880ajcsmjylpzXbcpdstn Ball Other Roxana Guardly Other Start: 50-81-1401Qmrylbbak encounterJoby Mays Medical ClinicStart: 03-51-9479Gkyjbunwi encounterMedina Schrader RN Hematology/OncologyStart: 10-10-2023 End: 23-16-0166bhfhuchvlvAoozdf Santana Other [facility] Other Start: 52-33-9775Ozgtld outpatient visit 15 minutes [facility] ClinicStart: 08-27-2023 End: 01-00-9285gkueiozkjlUvdhvjjb Ball Other [facility] Other Start: 47-25-5920Njejvtzju encounterBenashley [facility]ays Medical ClinicStart: 08-02-2023 End: 93-04-6304Nehbmy outpatient visit 15 minutesJoon Piper MD Work Phone: Hematology/OncologyComment on above:Waldenstrom macroglobulinemia (HCC) (Primary Dx); Paraneoplastic neuropathy (HCC)Start: 37-06-7161Ndvjgncsl encounterJoon Piper MD Work Phone: Hematology/OncologyComment on above:Disability Scott Start: 06-21-2023 End: 50-01-4289cyowfkdjzqDudfvgjx Ball Other [facility] Other Start: 43-41-7610Moirmfxbd encounterBenashley Mays Medical ClinicStart: 06-12-2023 End: 32-57-4317ynjwhtbiwoIrnfsdmk Ball Other [facility] Other Start: 39-27-8321Gwyielplt encounterBenjaelijah [facility] Medical ClinicStart: 06-06-2023 End: 86-55-7267dxrdzfjkijBaybrmdj Ball Other [facility] Other Start: 80-70-4759Jgeayuhnj for general adult medical examination without abnormal findingsJoby Mays Medical ClinicStart: 47-32-7830Tutpoypf preventive med est patient 40-64yrsBenaslhey KaminskiG [facility] ClinicStart: 69-64-4957BzfzgjJohmnua McKitrick [facility] Work Phone: [facility] PharmacyComment on above: Refill RequestDisability MemoStart: 05-28-2023 End: 04-92-1897Kgthyn outpatient visit 15 minutesJoon Piper MD Work Phone: Hematology/OncologyComment on above:Waldenstrom macroglobulinemia (HCC) (Primary Dx); Paraneoplastic neuropathy (HCC); Bilateral hip painStart: 05-18-2023 End: 18-29-2178srpjwaergqTsmajkfa Meilele Other [facility] Other Start: 47-73-6184Csmekmhvi encounterBefabian [facility] Medical ClinicStart: 05-09-2023 End: 03-83-3968zgwdjbhxovBcold 7 Laron Work Phone: Hematology/OncologyComment on above:Waldenstrom macroglobulinemia (HCC) (Primary Dx)Start: 05-02-2023 End: 87-83-5803lrnrpwzoeqTquwl 7 Laron Work Phone: Hematology/OncologyComment on above:Waldenstrom macroglobulinemia (HCC) (Primary Dx)Start: 65-35-6686Tkzrbdnqx encounterJoon Piper MD Work Phone: Hematology/OncologyComment on above:AFLAC paperwork Start: 04-25-2023 End: 34-64-2273Chwbhf outpatient visit 25 minutesJoon Piper MD Work Phone: Hematology/OncologyComment on above:Waldenstrom macroglobulinemia (HCC) (Primary Dx); Paraneoplastic neuropathy (HCC)Start: 12-46-3802Rnagtphsf encounterDiana Leong RN Work Phone: Hematology/OncologyComment on above:Care Coordination (C1D1 Post Treatment Call)Start: 56-58-2699Wwnaxgxyk Rut Piper MD Work Phone: Hematology/OncologyComment on above:Disability Scott Start: 67-65-4103Qoodypjbl encounterFinancial Navigator Brandon Work Phone: Hematology/OncologyComment on above:Benefits InvestigationStart: 04-18-2023 End: 47-80-2206ygifkggtulKryhf Martinez REGISTERED REPRESENTATIVE.SIGNAL CONSTRUCTOR Work Phone: Hematology/OncologyComment on above:Waldenstrom macroglobulinemia (HCC) (Primary Dx); Type 2 diabetes mellitus with diabetic polyneuropathy, without long-term current use of insulin (HCC); Other iron deficiency anemiaWaldenstrom macroglobulinemia (HCC) (Primary Dx) Start: 04-18-2023 End: 56-63-6386Dydxwey encounter Manisha Burton APRN.SIGNAL CONSTRUCTOR Work Phone: SANDUSKYStart: 53-51-2140Arbperrgf encounterJoon Piper MD Work Phone: Hematology/OncologyComment on above:Disability Scott Start: 18-55-5039dgpoppqrnwHfntcds Sessler RN Work Phone: Hematology/OncologyComment on above:Non-Chemotherapy Treatment (Rituximab)Start: 21-20-7579Fzcznyymh encounterTifpamela Rodriguez RN Hematology/OncologyComment on above:AppointmentStart: 02-09-2023 End: 24-86-1655Siieox outpatient visit 15 minutesJoon Piper MD Work Phone: Hematology/OncologyComment on above:Waldenstrom macroglobulinemia (HCC) (Primary Dx); Type 2 diabetes mellitus with diabetic polyneuropathy, without long-term current use of insulin (HCC)Start: 12-05-2022 End: 06-64-3057kdxygzqniyVxxhvkxe Ball Other [facility] Other Start: 56-61-4080Omatni outpatient visit 15 minutes [facility] ClinicStart: 11-10-2022 End: 60-28-6347unfvgwewjqOfinmFred Burton APRN.CNP Work Phone: Hematology/OncologyComment on above:Waldenstrom macroglobulinemia (HCC) (Primary Dx); Monoclonal gammopathy; Malignant lymphoma, lymphoplasmacytic (HCC); Other iron deficiency anemia; Type 2 diabetes mellitus with diabetic polyneuropathy, without long-term current use of insulin (HCC)Start: 11-10-2022 End: 27-26-4385Knvlzrg encounter Manisha Burton APRN.CNP Work Phone: SANDUSKYStart: 09-28-2022 End: 79-66-6475anihiqfqciOGJackie MAYSFacility:R6Rkrbu: 08-11-2022 End: 16-96-7276gxztjthvljIfhjqSukhjinder Piper MD Work Phone: Hematology/OncologyComment on above:Waldenstrom macroglobulinemia (HCC) (Primary Dx); Type 2 diabetes mellitus with diabetic polyneuropathy, without long-term current use of insulin (HCC)Start: 08-11-2022 End: 21-83-3993Inlylpv encounter Yamila Piper MD Work Phone: saNDUSKYStart: 06-29-2022 End: 13-90-4880jvwdnutupaKPJackie Reyezcility:O9Estqn: 79-32-6512Nrsgf health examinationBenashley Mays Other Roxana [employer] Other Start: 05-12-2022 End: 54-58-8377zdppquinmnCdlrzSukhjinder Piper MD Work Phone: Hematology/OncologyComment on above:Waldenstrom macroglobulinemia (HCC) (Primary Dx)Start: 05-12-2022 End: 60-62-4303Liwirdd encounter Yamila Piper MD Work Phone: SANDUSKYStart: 21-19-4039Fsptxsuaz encounterVeronica Issa RNHematology/OncologyComment on above:Fatigue; AppointmentStart: 02-10-2022 End: 22-17-7498avwqszytntRpjcoEsme Burton APRN.CNP Work Phone: Hematology/OncologyComment on above:Waldenstrom macroglobulinemia (HCC) (Primary Dx); Malignant lymphoma, lymphoplasmacytic (HCC); Monoclonal gammopathy; Other iron deficiency anemiaStart: 02-10-2022 End: 90-18-9852Pnzbqda encounter procedureZeynep Burton APRN.BELINDA Work Phone: SANDUSKYStart: 94-18-8049xgyvxnzbmqWN JOBY MAYS Facility:G9Glynp: 08-05-2021 End: 27-29-5066Oykzoujffz hospital visit by physicianMri [facility]ly [facility] (Lg Bore/1.5t)Radiology MRIComment on above:Neoplasm of uncertain behavior of liver, gallbladder, 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]Start: 04-23-2018 End: 58-54-2368Dxyfwiv encounterJosharad Tobias DumotFacility:AMCStart: 06-28-2017 End: 40-33-9682Xverfegzqo and management of inpatientMiami Valley Hospital Procedures DateProcedureProcedure DetailPerforming ClinicianStart: 13-76-3726Jfzx nicole implt smpl cn npgt prgrmgNicole Valorie DO Work Phone: Start: 56-01-4064Cdfd nicole implt smpl cn npgt prgrmg Evan Valorie DO Work Phone: Start: 80-80-7165FJULTFK POCT GLUCOMETERSBenjamin W Murcek DO Work Phone: start: 57-09-0766Jgrsljytljpswcyg of cranial nerve Joby Mays DO Work Phone: Start: 18-93-9313WMNBUMQ POCT GLUCOMETERSBenjamin W Murcek DO Work Phone: start: 92-71-1865Ojvdp count complete auto&auto difrntl wbcNickik Veronique SALDIVAR Work Phone: Start: 01-65-0167DovoirnnwwrEkhch Musser PA-C Work Phone: Start: 26-17-2658Zqdsi depression screening assessment Joon Piper MD Work Phone: Start: 12-83-5396Zgcae depression screening assessment Zeynep Burton APRN.CNP Work Phone: Start: 13-74-8355Ngb abdomen w/o & w/contrast material Joon Piper MD Work Phone: Start: 44-43-9514Komma i surg pathology gross examination onlyNot In System Ref ProvStart: 36-78-1963NYQ / COLONOSCOPYNot In System Ref ProvStart: 90-04-7796Trptfbefhb upper gi endoscopic px nosJohn Dumot Start: 26-79-7077Ydf transoral biopsy single/multipleJohn DumotStart: 04-23-2018 Esophagogastroduodenoscopy us scope w/adj strxrsJohn DumotStart: 54-37-3912MKW GLUCOSE FINGERSTICKKASIM SIMONSPTAStart: 66-66-8510TOWH GLUCOSEKASIM SIMONSPTAStart: 74-14-8209QJTDHSNSS PATIENTKASIM GUPTAStart: 43-37-5683JTS GLUCOSE FINGERSTICKKASIM SIMONSPTAStart: 10-85-8282GJHN GLUCOSEKASIM SIMONSPTAStart: 17-60-6933HLO GLUCOSE FINGERSTICKKASIM SIMONSPTAStart: 10-60-4316GRUY GLUCOSEKASIM SIMONSPTAStart: 18-23-7207ZJC GLUCOSE FINGERSTICKKASIM SIMONSPTAStart: 04-89-4491JDSZ GLUCOSEKUL RONAKPTAStart: 06-82-7716SMG GLUCOSE FINGERSTICKKASIM SIMONSPTAStart: 66-89-5131HLLQ GLUCOSEKUL PRINCE Start: 93-99-4476BEKO GLUCOSEKUL RONAKPTAStart: 54-64-5992PDH GLUCOSE FINGERSTICK KEILA SIMONSPTAStart: 82-37-0311VNM WITH AUTO DIFFERENTIALKASIM SIMONSPTAStart: 06-28-2017 COMPREHENSIVE METABOLIC PANELKASIM SIMONSPTAStart: 18-24-3579EBKT CODEKASIM SIMONSPTAStart: 36-14-9756SF CONSULT TO HISTORY AND PHYSICALKASIM PRINCEStart: 13-00-5820FUSVYQD STATUS (DIRECT)KEILA [place]: 87-83-2879VuxkraronlXWE RONAKPTAStart: 06-28-2017 URINE DRUG SCREENKUL RONAKPTAStart: 64-11-8991DCON GLUCOSEKUL RONAKPTAStart: 54-41-2862PUO GLUCOSE FINGERSTICKKUL RONAKPTAStart: 29-32-9007LSGP GLUCOSEKUL PRINCE Start: 93-29-3303LKNU GLUCOSEKUL GUPTAStart: 59-32-1115OJAT CARB CONTROLKUL GUPTAStart: 08-65-0045WHMVVNO STATUS (DIRECT)KEILA PRINCEStart: 48-68-3520Pyawmdq examination of patientJoby Mays Other Start: 58-79-1658Pzuqtxond for malignant neoplasm of prostateBenashley Mays Other Start: 78-62-9090Uaafbpivr for malignant neoplasm of colonMarsnashley Mays Other Plan of Treatment DateCare ActivityDetailAuthorStart: 43-25-1673Aephiagur for malignant neoplasm of colonNOMS HealthcareStart: 90-55-0303Urozmnbto for malignant neoplasm of colonColonoscopyPending sale to [facility]htart: 22-46-9330Gjjdnzdhoidn vaccination [facility] Hospitaltart: 17-87-6202Cxgtwopynfrs Vaccine: 50+ (3 of 3 - PPSV23, PCV20 or PCV21)Pneumococcal Vaccine: 50+ (3 of 3 - PPSV23, PCV20 or PCV21) [facility] Hospitaltart: 73-49-2168PSTZDQOX CANCER SCREENING DISCUSSIONPROSTATE CANCER SCREENING DISCUSSIONParkview Health Bryan Hospitaltart: 64-37-2821Hclesmkb specific antigen measurementProstate Cancer Screening DiscussionParkview Health Bryan Hospitaltart: 99-43-6677Hlmdm BMI ScreeningAdult BMI ScreeningOhioHealth Dublin Methodist Hospital SystemStart: 95-82-9495Vvfwidq ScreeningTobacco ScreeningPending sale to [facility]htart: 51-94-2613Ebdpi BMI ScreeningAdult BMI ScreeningOhioHealth Dublin Methodist Hospital SystemStart: 63-58-0558Yrzslwb ScreeningTobacco ScreeningOhioHealth Dublin Methodist Hospital SystemStart: 03-04-2025 End: 91-33-0881Fcmdmf-up encounterHematology/OncologyComment on above:8 week follow up with lab chemotx RituxinStart: 03-04-2025 End: 97-06-4920Sqammtk encounter ryqpzbuoa05/28/2025 9:00 AM EDT Office Visit [facility] [address] [place] [id number] 8 week follow up with lab chemotx RituxinNortMcLaren Northern Michigan LaboratoryComment on above:8 week follow up with lab chemotx RituxinStart: 02-25-2025 End: 81-92-4437Hgtidwa encounter wvioeymeq36/21/2025 10:00 AM EDT Office [place] [address] PFA / clinical advisor before next infusion.Financial Clearance Phone ScreeningComment on above:PFA / clinical advisor before next infusion.Start: 02-19-2025 End: 82-07-4105Xhgwmdl encounter glzveesvb54/15/2025 1:00 PM EDT Office Visit GABRIELLE GAR [address] [place] [id number] Evan Eugene [address] [place] [address] GABRIELLE DANIELLEtart: 10-42-5333Jkgio BMI ScreeningAdult BMI Screening [facility] SystemStart: 31-49-4150Yangbtqgt for malignant neoplasm of colonParkview Health Bryan Hospitaltart: 85-06-3836Cycwcjz ScreeningTobacco Screening [facility] SystemStart: 04-32-6350Mhtto BMI ScreeningAdult BMI Screening [facility] SystemStart: 47-06-1753Zgdqtlp ScreeningTobacco Screening [facility] SystemStart: 01-12-2025 End: 14-84-7204TuyalsliimbdywjAieadmqsrvqqjqo Sleep Center Routine TIANNA (obstructive sleep apnea) Expected: 01/12/2025 (Approximate), Expires: 01/12/2026[facility] Work Phone: comment on above:Expected: 01/12/2025 (Approximate), Expires: 01/12/2026Start: 01-12-2025 End: 25-87-5229Tjkwjbj encounter procedureANA BELLEVUEComment on above:Arrived Start: 61-66-8688Knotp BMI ScreeningAdult BMI ScreeningOhioHealth Dublin [facility] Hospital System Start: 00-00-6112Jhophnc ScreeningTobacco ScreeningPending sale to [facility]htart: 01-07-2025 End: 51-63-1933Nawzxl-up encounterHematology/OncologyComment on above:8 week follow up with lab chemotx RituxinStart: 01-07-2025 End: 00-18-2046Cqpgrij encounter rukcffkgd98/02/2025 8:45 AM EDT Office Visit [facility] [address] [place] [address] 8 week follow up with lab chemotx RituxinNortMcLaren Northern Michigan LaboratoryComment on above:8 week follow up with lab chemotx RituxinStart: 12-29-2024 End: 69-53-7905FGO W Auto Differential panel - BloodCOMPLETE BLOOD COUNT AND DIFFERENTIAL Lab Routine Waldenstrom macroglobulinemia Expected: 12/29/2024, Expires: 03/30/2025[facility] ClinicComment on above:Expected: 12/29/2024, Expires: 03/30/2025Start: 12-29-2024 End: 92-16-7074Wpmpgwybaalcb metabolic 2000 panel - Serum or PlasmaCOMPREHENSIVE METABOLIC PANEL Lab Routine Waldenstrom macroglobulinemia Expected: 12/29/2024, Expires: 03/30/2025[facility] Work Phone: Comment on above:Expected: 12/29/2024, Expires: 03/30/2025Start: 12-29-2024 End: 83-82-9493ZBRAJYVRUG PROTEIN, SERUM (BLOOD)MONOCLONAL PROTEIN, SERUM (BLOOD) Lab Routine Waldenstrom macroglobulinemia Expected: 12/29/2024, Expires: 03/30/2025[facility] ClinicComment on above:Expected: 12/29/2024, Expires: 03/30/2025Start: 12-29-2024 End: 74-63-9772HBPQNSQ ELECTROPHORESIS SERUM W/INTERPPROTEIN ELECTROPHORESIS SERUM W/INTERP Lab Routine Waldenstrom macroglobulinemia Expected: 12/29/2024, Expires: 03/30/2025[facility] ClinicComment on above:Expected: 12/29/2024, Expires: 03/30/2025Start: 12-16-2024 End: 32-61-5243Rcqyztn encounter procedureNOGA [place] [facility] ROUTEStart: 12-11-2024 End: 02-05-7285Jojazdo encounter procedureANA Avinashment on above:Arrived Start: 51-75-3462Ocdpn-19 Vaccine ()Covid-19 Vaccine ()[facility] Hospitaltart: 11-12-2024 End: 50-14-4373Lxaslrn encounter procedureANA Avinashment on above:Arrived Start: 11-12-2024 End: 82-62-8784Nbiwmk-up encounterHematology/OncologyComment on above:8 week follow up with lab chemotx RituxinStart: 11-12-2024 End: 86-50-9441Efrzief encounter gifgegnrh04/05/2025 8:45 AM EST Office Visit [facility] [address] [place] [phone] 8 week follow up with lab chemotx RituxinNortMcLaren Northern Michigan LaboratoryComment on above:8 week follow up with lab chemotx RituxinStart: 11-05-2024 End: 14-33-3114Hmmz-2-Microglobulin [Mass/volume] in Serum or PlasmaB2 MICROGLOBULIN Lab Routine Waldenstrom macroglobulinemia Expected: 11/05/2024, Expires: 02/04/2025[facility] ClinicComment on above:Expected: 11/05/2024, Expires: 02/04/2025Start: 11-05-2024 End: 65-16-2596VLQ W Auto Differential panel - BloodCOMPLETE BLOOD COUNT AND DIFFERENTIAL Lab Routine Waldenstrom macroglobulinemia Expected: 11/05/2024, Expires: 02/04/2025[facility] ClinicComment on above:Expected: 11/05/2024, Expires: 02/04/2025Start: 11-05-2024 End: 74-00-7099Ctyjwpesehsrb metabolic 2000 panel - Serum or PlasmaCOMPREHENSIVE METABOLIC PANEL Lab Routine Waldenstrom macroglobulinemia Expected: 11/05/2024, Expires: 02/04/2025[facility] Work Phone: Comment on above:Expected: 11/05/2024, Expires: 02/04/2025Start: 11-05-2024 End: 90-73-4563RDPEONCEKF PROTEIN, SERUM (BLOOD)MONOCLONAL PROTEIN, SERUM (BLOOD) Lab Routine Waldenstrom macroglobulinemia Expected: 11/05/2024, Expires: 02/04/2025[facility] ClinicComment on above:Expected: 11/05/2024, Expires: 02/04/2025Start: 11-05-2024 End: 79-62-9424JEGMIOJ ELECTROPHORESIS SERUM W/INTERPPROTEIN ELECTROPHORESIS SERUM W/INTERP Lab Routine Waldenstrom macroglobulinemia Expected: 11/05/2024, Expires: 02/04/2025[facility] ClinicComment on above:Expected: 11/05/2024, Expires: 02/04/2025Start: 11-05-2024 End: 34-28-4680Fbucz [Mass/volume] in Serum or PlasmaURIC ACID Lab Routine Waldenstrom macroglobulinemia Expected: 11/05/2024, Expires: 02/04/2025[facility] ClinicComment on above:Expected: 11/05/2024, Expires: 02/04/2025Start: 10-29-2024 End: 16-79-9532Idkydgi encounter procedureNOMS ENT SANDUSKYComment on above: ArrivedStart: 09-22-2024 End: 17-70-3699Hzitquy encounter procedureNOMS ENT SANDUSKYComment on above: ArrivedStart: 09-17-2024 End: 24-82-1756Xhpmna-up encounterHematology/OncologyComment on above:1 week follow up with lab chemotx RituxinStart: 09-17-2024 End: 44-77-0872Idxkzud encounter gzpssheug53/11/2024 8:45 AM EST Office Visit [facility] [address] [place] [address] 1 week follow up with lab chemotx RituxinNoTeays Valley Cancer Center LaboratoryComment on above:1 week follow up with lab chemotx RituxinStart: 91-55-2897PtuwglrpeSheltering Arms Hospitaltart: 70-63-5239DzskrcngkSheltering Arms Hospitaltart: 09-10-2024 End: 89-70-6152KRL W Auto Differential panel - BloodCOMPLETE BLOOD COUNT AND DIFFERENTIAL Lab Routine Waldenstrom macroglobulinemia Expected: 09/10/2024, Expires: 12/10/2024[facility] ClinicComment on above:Expected: 09/10/2024, Expires: 12/10/2024Start: 09-10-2024 End: 14-82-7655Vgjerqedmzngr metabolic 2000 panel - Serum or PlasmaCOMPREHENSIVE METABOLIC PANEL Lab Routine Waldenstrom macroglobulinemia Expected: 09/10/2024, Expires: 12/10/2024[facility] Work Phone: Comment on above:Expected: 09/10/2024, Expires: 12/10/2024Start: 09-10-2024 End: 60-93-1956vghkiuwrvr41/04/2024 9:00 AM [facility] Infusion Center Hematology/Oncology [address] [place] [address] [place] [address] Laron, Chair [address] [place] [address] [place] [id number] Rituxan j0Gisognhujm/OncologyComment on above:Rituxan z7Rxcce: 09-10-2024 End: 40-26-3833Oqwknl-up encounterHematology/OncologyComment on above:2 week follow up with lab chemotx RituxinStart: 09-10-2024 End: 92-53-4856Lzejayt encounter procedureNortMcLaren Northern Michigan LaboratoryComment on above:2 week follow up with lab chemotx RituxinStart: 09-03-2024 End: 10-56-4926rnyimxkxll55/27/2024 9:00 AM [facility] Infusion Center Hematology/Oncology [address] [place] [address] Laron, [address] [place] [address] Rituxan l5Qplpwdjtxc/OncologyComment on above:Rituxan f9Oracm: 08-27-2024 End: 27-00-6061udzpulwhttXqzrcudwzt/OncologyComment on above:Return visitRituxan x0Yspzfi visit (labs 1 week prior)Start: 08-27-2024 End: 24-69-1842Ppgfnji encounter qdnoyypqk97/20/2024 9:15 AM EST Office Visit [facility] [address] [place] [address] labNortMcLaren Northern Michigan LaboratoryComment on above:labStart: 08-20-2024 End: 15-22-4355pstdnpjakq28/13/2024 9:00 AM EST [facility] Hematology/Oncology [address] [place] [address] Laron, Chair [address] [place] [address] Rituxan v2Wocqcghkow/OncologyComment on above:Rituxan q5Pdqcu: 08-14-2024 End: 34-98-1397Tkwm-2-Microglobulin [Mass/volume] in Serum or PlasmaB2 MICROGLOBULIN Lab Routine Malignant lymphoma, lymphoplasmacytic (HCC) Expected: 08/14/2024 (Approximate), Expires: 07/31/2025[facility] ClinicComment on above: Expected: 08/14/2024 (Approximate), Expires: 07/31/2025Start: 08-14-2024 End: 63-19-8715Yrolqgq.ionized [Moles/volume] in BloodCALCIUM, IONIZED Lab Routine Malignant lymphoma, lymphoplasmacytic (HCC) Expected: 08/14/2024 (Appro ximate), Expires: 07/31/2025[facility] ClinicComment on above:Expected: 08/14/2024 (Approximate), Expires: 07/31/2025Start: 08-14-2024 End: 61-99-0729PXA W Auto Differential panel - BloodCOMPLETE BLOOD COUNT AND DIFFERENTIAL Lab Routine Malignant lymphoma, lymphoplasmacytic (HCC) Expected: 08/14/2024 (Approximate), Expires: 07/31/2025[facility] ClinicComment on above: Expected: 08/14/2024 (Approximate), Expires: 07/31/2025Start: 08-14-2024 End: 40-43-7231Hupurit hepatitis differentiation between hepatitis B and C virus panel - Serum or PlasmaHEP REMOTE PANEL BL Lab Routine Malignant lymphoma, lymphoplasmacytic (HCC) Expected: 08/14/2024 (Approximate), Expires: 11/13/2024 [facility] CenterComment [facility]:Expected: 08/14/2024 (Approximate), Expires: 11/13/2024Start: 08-14-2024 End: 35-45-6777Pkffxvdth (Vitamin B12) [Mass/volume] in Serum or PlasmaVITAMIN B12 Lab Routine Malaise and fatigue Malignant lymphoma, lymphoplasmacytic (HCC) Expected: 08/14/2024 (Approximate), Expires: 11/13/2024[facility] ClinicComment on above:Expected: 08/14/2024 (Approximate), Expires: 11/13/2024Start: 08-14-2024 End: 93-29-2859Zbxvhtcojleld metabolic 2000 panel - Serum or PlasmaCOMPREHENSIVE METABOLIC PANEL Lab Routine Malignant lymphoma, lymphoplasmacytic (HCC) Expected: 08/14/2024 (Approximate), Expires: 07/31/2025[facility] ClinicComment on above:Expected: 08/14/2024 (Approximate), Expires: 07/31/2025Start: 08-14-2024 End: 34-87-1702IDAIC/KING,FREE,SERKAPPA/KING,FREE,SER Lab Routine Malignant lymphoma, lymphoplasmacytic (HCC) Expected: 08/14/2024 (Approximate), Expires: 11/13/2024[facility] ClinicComment on above:Expected: 08/14/2024 (Approximate), Expires: 11/13/2024Start: 08-14-2024 End: 63-48-6265Gaxfrhp dehydrogenase [Enzymatic activity/volume] in Serum or PlasmaLACTATE DEHYDROGENASE Lab Routine Malignant lymphoma, lymphoplasmacytic (HCC) Expected: 08/14/2024 (Approximate), Expires: 07/31/2025[facility] Comment on above:Expected: 08/14/2024 (Approximate), Expires: 07/31/2025Start: 08-14-2024 End: 36-13-0307TNFMZPEWYL PROTEIN, SERUM (BLOOD)MONOCLONAL PROTEIN, SERUM (BLOOD) Lab Routine Malignant lymphoma, lymphoplasmacytic (HCC) Expected: 08/14/2024 (Approximate), Expires: 07/31/2025[facility] ClinicComment on above: Expected: 08/14/2024 (Approximate), Expires: 07/31/2025Start: 08-14-2024 End: 66-57-4910Msursidsa [Mass/volume] in Serum or PlasmaPHOSPHORUS INORGANIC Lab Routine Malignant lymphoma, lymphoplasmacytic (HCC) Expected: 08/14/2024 (A pproximate), Expires: 07/31/2025[facility] ClinicComment on above:Expected: 08/14/2024 (Approximate), Expires: 07/31/2025Start: 08-14-2024 End: 04-93-0144UUEVBIR ELECTROPHORESIS SERUM W/INTERPPROTEIN ELECTROPHORESIS SERUM W/INTERP Lab Routine Malignant lymphoma, lymphoplasmacytic (HCC) Expected: 08/14/2024 (Approximate), Expires: 07/31/2025[facility] ClinicComment on above: Expected: 08/14/2024 (Approximate), Expires: 07/31/2025Start: 08-14-2024 End: 90-76-8037KLLJS VISCOSITYSERUM VISCOSITY Lab Routine Malignant lymphoma, lymphoplasmacytic (HCC) Expected: 08/14/2024 (Approximate), Expires: 11/13/2024 [facility] CenterComment on above:Expected: 08/14/2024 (Approximate), Expires: 11/13/2024Start: 08-14-2024 End: 67-53-0722MAIDFSTJLMDP, FREE AND TOTAL, BY EQUILIBRIUM ULTRAFILTRATION MASS SPECTROMETRYTESTOSTERONE, FREE AND TOTAL, BY EQUILIBRIUM ULTRAFILTRATION MASS SPECTROMETRY Lab Routine Waldenstrom macroglobulinemia Paraneoplastic neuropathy (HCC) Malaise and fatigue Malignant lymphoma, lymphoplasmacytic (HCC) Expected: 08/14/2024 (Approximate), Expires: 11/13/2024[facility] Work Phone: Comment on above:Expected: 08/14/2024 (Approximate), Expires: 11/13/2024Start: 08-14-2024 End: [id number] [Units/volume] in Serum or PlasmaTHYROID STIMULATING HORMONE Lab Routine Malignant lymphoma, lymphoplasmacytic (HCC) Expected: 2023 (Approximate), Ex[facility]: [facility] Expected: 08/14/2024 (Approximate), Expires: 11/13/2024Start: 08-14-2024 End: 44-24-7475Rmrmd [Mass/volume] in Serum or PlasmaURIC ACID Lab Routine Malignant lymphoma, lymphoplasmacytic (HCC) Expected: 08/14/2024 (Approximate), Expires: 07/31/2025[facility]:Expected: 08/14/2024 (Approximate), Expires: 07/31/2025Start: 08-13-2024 End: [id number] encounter yjywsfdgx64/06/2024 11:00 AM EST Office Visit [facility] [address] [facility] [place] [address] labsNortMcLaren Northern Michigan LaboratoryComment on above:labsStart: 48-59-5044Qhaxc-19 Vaccine ( season)Covid-19 Vaccine ( season)[facility]24 End: 23-10-5658Vqmuwy-up ialmxzjkv81/24/2024 11:00 AM EDT Visit (SP) Office Hematology/Oncology [address] [address] [place] [address] Joon Piper MD [address] [place] [address] 12 week follow upHematology/OncologyComment on above:12 week follow upStart: 07-24-2024 End: 00-88-2553Opjx-2-Microglobulin [Mass/volume] in Serum or PlasmaB2 MICROGLOBULIN Lab Routine Waldenstrom macroglobulinemia (HCC) Type 2 diabetes mellitus with diabetic polyneuropathy, without long-term current use of insulin (HCC) Paraneoplastic neuropathy (HCC) Expected: 07/24/2024 (Approximate), Expires: 10/23/2024[facility] ClinicComment [facility] above:Expected: 07/24/2024 (Approximate), Expires: 10/23/2024Start: 07-24-2024 End: 07-67-0702Ghuginw.ionized [Moles/volume] in BloodCALCIUM, IONIZED Lab Routine Waldenstrom macroglobulinemia (HCC) Type 2 diabetes mellitus with diabe tic polyneuropathy, without long-term current use of insulin (HCC) Paraneoplastic neuropathy (HCC) Expected: 07/24/2024 (Approximate), Expires: 10/23/2024[facility] ClinicComment on above:Expected: 07/24/2024 (Approximate), Expires: 10/23/2024Start: 07-24-2024 End: 47-86-0568RIO W Auto Differential panel - BloodCOMPLETE BLOOD COUNT AND DIFFERENTIAL Lab Routine Waldenstrom macroglobulinemia (HCC) Type 2 diabetes mellitus with diabetic polyneuropathy, without long-term current use of insulin (HCC) Paraneoplastic neuropathy (HCC) Expected: 07/24/2024 (Approximate), Expires: 10/23/2024[facility] ClinicComment on above:Expected: 07/24/2024 (Approximate), Expires: 10/23/2024Start: 07-24-2024 End: 76-05-9140Niracfdpfmmkx metabolic 2000 panel - Serum or PlasmaCOMPREHENSIVE METABOLIC PANEL Lab Routine Waldenstrom macroglobulinemia (HCC) Type 2 diabetes mellitus with diabetic polyneuropathy, without long-term current use of insulin (HCC) Paraneoplastic neuropathy (HCC) Expected: 07/24/2024 (Approximate), Expires: 10/23/2024[facility] Work Phone: Comment on above:Expected: 07/24/2024 (Approximate), Expires: 10/23/2024Start: 07-24-2024 End: 39-43-2252VSWZKVSNMCMNMYF,IGG,IGA,IGMIMMUNOGLOBULINS,IGG,IGA,IGM Lab Routine Waldenstrom macroglobulinemia (HCC) Type 2 diabetes mellitus with diabetic polyneuropathy, without long-term current use of insulin (HCC) Paraneoplastic neuropathy (HCC) Expected: 07/24/2024 (Approximate), Expires: 10/23/2024[facility] ClinicComment on above:Expected: 07/24/2024 (Approximate), Expires: 10/23/2024Start: 07-24-2024 End: 04-03-3959Epyokgn dehydrogenase [Enzymatic activity/volume] in Serum or PlasmaLACTATE DEHYDROGENASE Lab Routine Waldenstrom macroglobulinemia (HCC) Type 2 diabetes mellitus withdiabetic polyneuropathy, without long-term current use of insulin (HCC) Paraneoplastic neuropathy (HCC) Expected: 07/24/2024 (Approximate), Expires: 10/23/2024[facility] ClinicComment on above:Expected: 07/24/2024 (Approximate), Expires: 10/23/2024Start: 07-24-2024 End: 57-10-3407ZJGZCQBBSH PROTEIN, SERUM (BLOOD)MONOCLONAL PROTEIN, SERUM (BLOOD) Lab Routine Waldenstrom macroglobulinemia (HCC) Type 2 diabetes mellitus with diabetic polyneuropathy, without long-term current use of insulin (HCC) Paraneoplastic neuropathy (HCC) Expected: 07/24/2024 (Approximate), Expires: 10/23/2024[facility] ClinicComment on above:Expected: 07/24/2024 (Approximate), Expires: 10/23/2024Start: 07-24-2024 End: 34-37-1077Ppblgyujr [Mass/volume] in Serum or PlasmaPHOSPHORUS INORGANIC Lab Routine Waldenstrom macroglobulinemia (HCC) Type 2 diabetes mellitus with d iabetic polyneuropathy, without long-term current use of insulin (HCC) Paraneoplastic neuropathy (HCC) Expected: 07/24/2024 (Approximate), Expires: 10/23/2024[facility] ClinicComment on above:Expected: 07/24/2024 (Approximate), Expires: 10/23/2024Start: 07-24-2024 End: 93-86-2606UFUXCZA ELECTROPHORESIS SERUM W/INTERPPROTEIN ELECTROPHORESIS SERUM W/INTERP Lab Routine Waldenstrom macroglobulinemia (HCC) Type 2 diabetes mellitus with diabetic polyneuropathy, without long-term current use of insulin (HCC) Paraneoplastic neuropathy (HCC) Expected: 07/24/2024 (Approximate), Expires: 10/23/2024[facility] ClinicComment on above:Expected: 07/24/2024 (Approximate), Expires: 10/23/2024Start: 07-24-2024 End: 81-07-0299EEHHJ VISCOSITYSERUM VISCOSITY Lab Routine Waldenstrom macroglobulinemia (HCC) Type 2 diabetes mellitus with diabetic polyneuropathy, without long-term current use of insulin (HCC) Paraneoplastic neuropathy (HCC) Expected: 07/24/2024 (Approximate), Expires: 10/23/2024[facility] ClinicComment on above:Expected: 07/24/2024 (Approximate), Expires: 10/23/2024Start: 07-24-2024 End: 30-70-3424Lvjxhij encounter nksydzosj49/17/2024 11:30 AM EDT Office Visit [facility] [address] [place] [address] [place] [address] 11 week labNortMc[facility] Comment on above:11 week labStart: 07-14-2024 End: 20-46-1409Imszzmf encounter procedureNOMS AMY BONEYComment on above: ArrivedStart: 07-01-2024 End: 89-52-3986Csgtewt encounter mpvnojkyn71/24/2024 2:00 PM EDT Office Visit [facility] [address] [place] [id number] Silke Hitchcock, SEYMOUR [address] [place], [place] [facility] ROUTEStart: 06-24-2024 End: 30-72-7450Midybqw encounter hoeazttha25/17/2024 10:00 AM EDT Office Visit [facility] [address] [place] [address] Mejia Buckner MD [address] [place] [address] [facility] General SurgeryStart: 19-53-3074DGHDO-19 Vaccine ( season)COVID-19 Vaccine ()[facility]: 14-20-9690Ichdgxswy vaccinationParkview Health [facility] Hospitaltart: 04-03-2024 End: 61-92-7123Xymh-2-Microglobulin [Mass/volume] in Serum or PlasmaB2 MICROGLOBULIN Lab Routine Waldenstrom macroglobulinemia (HCC) Paraneoplastic neuropathy (HCC) Expected: 04/03/2024 (Approximate), Expires: 01/16/2025 [facility] Work Phone: Comment on above:Expected: 04/03/2024 (Approximate), Expires: 01/16/2025Start: 04-03-2024 End: 78-73-0381Ppbzwzh.ionized [Moles/volume] in BloodCALCIUM, IONIZED Lab Routine Waldenstrom macroglobulinemia (HCC) Paraneoplastic neuropathy (HCC) Exp ected: 04/03/2024 (Approximate), Expires: 01/16/2025[facility] Work Phone: Comment on above:Expected: 04/03/2024 (Approximate), Expires: 01/16/2025Start: 04-03-2024 End: 18-89-1806LEM W Auto Differential panel - BloodCOMPLETE BLOOD COUNT AND DIFFERENTIAL Lab Routine Waldenstrom macroglobulinemia (HCC) Paraneoplastic neuropathy (HCC) Expected: 04/03/2024 (Approximate), Expires: 01/16/2025 [facility] Work Phone: Comment on above:Expected: 04/03/2024 (Approximate), Expires: 01/16/2025Start: 04-03-2024 End: 71-30-5451Jcwherexgtvoh metabolic 2000 panel - Serum or PlasmaCOMPREHENSIVE METABOLIC PANEL Lab Routine Waldenstrom macroglobulinemia (HCC) Paraneoplastic neuropathy (HCC) Expected: 04/03/2024 (Approximate), Expires: 01/16/2025 [facility] Work Phone: Comment on above:Expected: 04/03/2024 (Approximate), Expires: 01/16/2025Start: 04-03-2024 End: 47-57-8488SVHJM/KING,FREE,SERKAPPA/KING,FREE,SER Lab Routine Waldenstrom macroglobulinemia (HCC) Paraneoplastic neuropathy (HCC)Expected: 04/03/2024 (Approximate), Expires: 07/03/2024[facility] Work Phone: Comment on above:Expected: 04/03/2024 (Approximate), Expires: 07/03/2024Start: 04-03-2024 End: 23-96-7247Iwgesaz dehydrogenase [Enzymatic activity/volume] in Serum or PlasmaLACTATE DEHYDROGENASE Lab Routine Waldenstrom macroglobulinemia (HCC) Paraneoplastic neuropathy (HCC) Expected: 04/03/2024 (Approximate), Expires: 01/16/2025[facility] Work Phone: Comment on above:Expected: 04/03/2024 (Approximate), Expires: 01/16/2025Start: 04-03-2024 End: 20-66-7330XKTFHINKNI PROTEIN, SERUM (BLOOD)MONOCLONAL PROTEIN, SERUM (BLOOD) Lab Routine Waldenstrom macroglobulinemia (HCC) Paraneoplastic celsa ropathy (HCC) Expected: 04/03/2024 (Approximate), Expires: 01/16/2025[facility] Work Phone: Comment on above:Expected: 04/03/2024 (Approximate), Expires: 01/16/2025Start: 04-03-2024 End: 34-05-3377Ryyypoyac [Mass/volume] in Serum or PlasmaPHOSPHORUS INORGANIC Lab Routine Waldenstrom macroglobulinemia (HCC) Paraneoplastic neuropathy (HCC) Expected: 04/03/2024 (Approximate), Expires: 01/16/2025[facility] Work Phone: Comment on above:Expected: 04/03/2024 (Approximate), Expires: 01/16/2025Start: 04-03-2024 End: 94-55-9720HWMVLDY ELECTROPHORESIS SERUM W/INTERPPROTEIN ELECTROPHORESIS SERUM W/INTERP Lab Routine Waldenstrom macroglobulinemia (HCC) Paraneoplastic neuropathy (HCC) Expected: 04/03/2024 (Approximate), Expires: 01/16/2025 [facility] Work Phone: Comment on above:Expected: 04/03/2024 (Approximate), Expires: 01/16/2025Start: 04-03-2024 End: 07-41-5747ZIDUB VISCOSITYSERUM VISCOSITY Lab Routine Waldenstrom macroglobulinemia (HCC) Paraneoplastic neuropathy (HCC) Expected: 04/03/2024 (Approximate), Expires: 07/03/2024[facility] Work Phone: Comment on above:Expected: 04/03/2024 (Approximate), Expires: 07/03/2024Start: 04-03-2024 End: 03-94-6576Cgloi [Mass/volume] in Serum or PlasmaURIC ACID Lab Routine Waldenstrom macroglobulinemia (HCC) Paraneoplastic neuropathy (HCC) Expected: 04/03/2024 (Approximate), Expires: 01/16/2025[facility] Work Phone: Comment on above:Expected: 04/03/2024 (Approximate), Expires: 01/16/2025Start: 44-18-7189OZX Vaccine (1 - 1-dose 60+ series)RSV Vaccine (1 - 1-dose 60+ series)[facility]: 01-28-2024 End: 93-70-3920Zzytiklfq to same day surgery bdznah7501/28/2024 10:45 AM EDT - 01/28/2024 11:30 AM EDT Surgery [facility] [address] [place] [address] Lazara Dumas, DO [address] [place] [address] ESOPHAGOGASTRODUODENOSCOPY DIAGNOSTIC [48194 (CPT )][facility] - SurgeryComment on above:ESOPHAGOGASTRODUODENOSCOPY DIAGNOSTIC [06434 (CPT )]Start: 01-28-2024 End: 20-78-0201Bwwphqvifdh flx dx w/collj spec when pfrmdCOLONOSCOPY DIAGNOSTIC / SCREENING History of colon polyps 01/28/2024 10:45 AM EDTFGARDNER SANITARIUM SURGERYStart: 01-28-2024 End: 20-75-1047Kolubngauasvcpqedkmjraujjv transoral diagnostic ESOPHAGOGASTRODUODENOSCOPY DIAGNOSTIC History of colon polyps 01/28/2024 10:45 AM EDTFGARDNER SANITARIUM SURGERYStart: 08-74-7933Oznupnfxfn hospital visit by physician 01/28/2024 10:45 AM EDT Hospital Encounter [facility] [address] [facility] [place] [id number] Lazara Dumas, DO [address] [place] [address] [facility] SurgeryStart: 01-22-2024 End: 27-45-1721qrjnmwwyeh20/16/2024 2:30 PM EDT Support Visit [facility] - Pre Admit [address] [place] [address] [facility] - Pre AdmitStart: 01-08-2024 End: 47-02-6904Uensbbc encounter kdphuiplt46/02/2024 9:30 AM EDT Office Visit [facility] [address] [place], [id number] Olamide Velasquez, REGISTERED REPRESENTATIVE-SIGNAL CONSTRUCTOR [address] [place] [address] [facility] SurgeryStart: 94-77-0177Gqqvw-19 Vaccine ()Covid-19 Vaccine ()[facility]: 10-18-2023 End: 54-97-1346Ymux-2-Microglobulin [Mass/volume] in Serum or PlasmaB2 MICROGLOBULIN B Lab Routine Waldenstrom macroglobulinemia (HCC) Paraneoplastic neuropathy (HCC) Expected: 10/18/2023, Expires: 08/02/2024[facility] Work Phone: Comment on above:Expected: 10/18/2023, Expires: 08/02/2024Start: 10-18-2023 End: 13-94-0852Iyvwsix.ionized [Moles/volume] in BloodCALCIUM IONIZED BLOOD Lab Routine Waldenstrom macroglobulinemia (HCC) Paraneoplastic neuropathy (HCC) Expected: 10/18/2023, Expires: 08/02/2024[facility] Work Phone: Comment on above:Expected: 10/18/2023, Expires: 08/02/2024Start: 10-18-2023 End: 71-70-1005SFA W Auto Differential panel - BloodCBC + DIFF Lab Routine Waldenstrom macroglobulinemia (HCC) Paraneoplastic neuropathy (HCC) Expected: 10/18/2023, Expires: 08/02/2024[facility] Work Phone: Comment on above:Expected: 10/18/2023, Expires: 08/02/2024Start: 10-18-2023 End: 18-68-1973Fdrpgusxvyram metabolic 2000 panel - Serum or PlasmaCOMP METABOLIC PANEL Lab Routine Waldenstrom macroglobulinemia (HCC) Paraneoplastic neuropathy (HCC) Expected: 10/18/2023, Expires: 08/02/2024[facility] Work Phone: Comment on above:Expected: 10/18/2023, Expires: 08/02/2024Start: 10-18-2023 End: 33-43-2006YQYJJ/KING,FREE,SERKAPPA/KING,FREE,SER Lab Routine Waldenstrom macroglobulinemia (HCC) Paraneoplastic neuropathy (HCC)Expected: 10/18/2023, Expires: 01/17/2024[facility] Work Phone: Comment on above:Expected: 10/18/2023, Expires: 01/17/2024Start: 10-18-2023 End: 50-30-8955Qmeqadw dehydrogenase [Enzymatic activity/volume] in Serum or PlasmaLD LACTATE DEHYDRO Lab Routine Waldenstrom macroglobulinemia (HCC) Paraneoplastic neuropathy (HCC) Expected: 10/18/2023, Expires: 08/02/2024 [facility] Work Phone: Comment on above:Expected: 10/18/2023, Expires: 08/02/2024Start: 10-18-2023 End: 72-15-5927WVANJTRJPS PROTEIN, SERUM (BLOOD)MONOCLONAL PROTEIN, SERUM (BLOOD) Lab Routine Waldenstrom macroglobulinemia (HCC) Paraneoplastic celsa ropathy (HCC) Expected: 10/18/2023, Expires: 08/02/2024[facility] Work Phone: Comment on above:Expected: 10/18/2023, Expires: 08/02/2024Start: 10-18-2023 End: 52-58-2023Fekiaipwa [Mass/volume] in Serum or PlasmaPHOSPHORUS INORGANIC Lab Routine Waldenstrom macroglobulinemia (HCC) Paraneoplastic neuropathy (HCC) Expected: 10/18/2023, Expires: 08/02/2024[facility] Work Phone: Comment on above:Expected: 10/18/2023, Expires: 08/02/2024Start: 10-18-2023 End: 76-58-5255JUFIYQH ELECTROPHORESIS SERUM W/INTERPPROTEIN ELECTROPHORESIS SERUM W/INTERP Lab Routine Waldenstrom macroglobulinemia (HCC) Paraneoplastic neuropathy (HCC) Expected: 10/18/2023, Expires: 08/02/2024[facility] Work Phone: Comment on above:Expected: 10/18/2023, Expires: 08/02/2024Start: 10-18-2023 End: 14-90-2685GVBLQ VISCOSITYSERUM VISCOSITY Lab Routine Waldenstrom macroglobulinemia (HCC) Paraneoplastic neuropathy (HCC) Expected: 10/18/2023, Expires: 01/17/2024[facility] Work Phone: Comment on above:Expected: 10/18/2023, Expires: 01/17/2024Start: 10-18-2023 End: 61-37-5518Glleh [Mass/volume] in Serum or PlasmaURIC ACID BLOOD Lab Routine Waldenstrom macroglobulinemia (HCC) Paraneoplastic neuropathy (HCC) Expected: 10/18/2023, Expires: 08/02/2024[facility] Work Phone: Comment on above:Expected: 10/18/2023, Expires: 08/02/2024Start: 95-73-4622Zlyirxfbyq Health ScreeningBehavioral Health ScreeningParkview Health Bryan Hospitaltart: 00-62-0291Gvsiztcrlu AssessmentDepression AssessmentParkview Health Bryan Hospitaltart: 25-17-2589Yxgbevnn Vaccine (2 of 2)Shingrix Vaccine (2 of 2)[facility]: 08-13-2023 End: 06-39-6051Zoro-2-Microglobulin [Mass/volume] in Serum or PlasmaB2 MICROGLOBULIN B Lab Routine Waldenstrom macroglobulinemia (HCC) Paraneoplastic neuropathy (HCC) Expected: 08/13/2023 (Approximate), Expires: 05/28/2024 [facility] Work Phone: Comment on above:Expected: 08/13/2023 (Approximate), Expires: 05/28/2024Start: 08-13-2023 End: 18-32-9860Ajylqzi.ionized [Moles/volume] in BloodCALCIUM IONIZED BLOOD Lab Routine Waldenstrom macroglobulinemia (HCC) Paraneoplastic neuropathy (HCC) Expected: 08/13/2023 (Approximate), Expires: 05/28/2024[facility] Work Phone: Comment on above:Expected: 08/13/2023 (Approximate), Expires: 05/28/2024Start: 08-13-2023 End: 13-07-4782LIP W Auto Differential panel - BloodCBC + DIFF Lab Routine Waldenstrom macroglobulinemia (HCC) Paraneoplastic neuropathy (HCC) Expected: 08/13/2023 (Approximate), Expires: 05/28/2024[facility] Work Phone: Comment on above:Expected: 08/13/2023 (Approximate), Expires: 05/28/2024Start: 08-13-2023 End: 92-58-8380Gjlaksattghmx metabolic 2000 panel - Serum or PlasmaCOMP METABOLIC PANEL Lab Routine Waldenstrom macroglobulinemia (HCC) Paraneoplastic neuropathy (HCC) Expected: 08/13/2023 (Approximate), Expires: 05/28/2024 [facility] Work Phone: Comment on above:Expected: 08/13/2023 (Approximate), Expires: 05/28/2024Start: 08-13-2023 End: 33-97-8527PETHU/KING,FREE,SERKAPPA/KING,FREE,SER Lab Routine Waldenstrom macroglobulinemia (HCC) Paraneoplastic neuropathy (HCC)Expected: 08/13/2023 (Approximate), Expires: 10/13/2023[facility] Work Phone: Comment on above:Expected: 08/13/2023 (Approximate), Expires: 10/13/2023Start: 08-13-2023 End: 13-05-3390Joyvtui dehydrogenase [Enzymatic activity/volume] in Serum or PlasmaLD LACTATE DEHYDRO Lab Routine Waldenstrom macroglobulinemia (HCC) Paraneoplastic neuropathy (HCC) Expected: 08/13/2023 (Approximate), Expires: 05/28/2024[facility] Work Phone: Comment on above:Expected: 08/13/2023 (Approximate), Expires: 05/28/2024Start: 08-13-2023 End: 26-35-1660EJQLKFNRME PROTEIN, SERUM (BLOOD)MONOCLONAL PROTEIN, SERUM (BLOOD) Lab Routine Waldenstrom macroglobulinemia (HCC) Paraneoplastic celsa ropathy (HCC) Expected: 08/13/2023 (Approximate), Expires: 05/28/2024[facility] Work Phone: Comment on above:Expected: 08/13/2023 (Approximate), Expires: 05/28/2024Start: 08-13-2023 End: 82-30-5298Pubpsntnn [Mass/volume] in Serum or PlasmaPHOSPHORUS INORGANIC Lab Routine Waldenstrom macroglobulinemia (HCC) Paraneoplastic neuropathy (HCC) Expected: 08/13/2023 (Approximate), Expires: 05/28/2024[facility] Work Phone: Comment on above:Expected: 08/13/2023 (Approximate), Expires: 05/28/2024Start: 08-13-2023 End: 09-12-5863QLTEMGX ELECTROPHORESIS SERUM W/INTERPPROTEIN ELECTROPHORESIS SERUM W/INTERP Lab Routine Waldenstrom macroglobulinemia (HCC) Paraneoplastic neuropathy (HCC) Expected: 08/13/2023 (Approximate), Expires: 05/28/2024 [facility] Work Phone: Comment on above:Expected: 08/13/2023 (Approximate), Expires: 05/28/2024Start: 08-13-2023 End: 57-41-0015PTGRF VISCOSITYSERUM VISCOSITY Lab Routine Waldenstrom macroglobulinemia (HCC) Paraneoplastic neuropathy (HCC) Expected: 08/13/2023 (Approximate), Expires: 10/13/2023[facility] Work Phone: Comment on above:Expected: 08/13/2023 (Approximate), Expires: 10/13/2023Start: 08-13-2023 End: 21-91-2821Rxovs [Mass/volume] in Serum or PlasmaURIC ACID BLOOD Lab Routine Waldenstrom macroglobulinemia (HCC) Paraneoplastic neuropathy (HCC) Expected: 08/13/2023 (Approximate), Expires: 05/28/2024[facility] Work Phone: Comment on above:Expected: 08/13/2023 (Approximate), Expires: 05/28/2024Start: 65-48-1457Hxblirgfoa A1c qwnmufcyoqaGkJ1OIuvywzbtq ClinicStart: 71-64-1339Lvtjxmgmwx A1c/Hemoglobin.total in WqbjsGOF0QKwheauvgm ClinicStart: 30-89-7634Idake-19 Vaccine ()Covid-19 Vaccine ()[facility]: 43-87-1656Hqwsqlukm vaccinationParkview Health Bryan Hospitaltart: 05-23-2023 End: 63-44-4397Cmxu-2-Microglobulin [Mass/volume] in Serum or PlasmaB2 MICROGLOBULIN B Lab Routine Waldenstrom macroglobulinemia (HCC) Expected: 05/23/2023 (Approximate), Expires: 04/25/2024[facility] Work Phone: Comment on above:Expected: 05/23/2023 (Approximate), Expires: 04/25/2024Start: 05-23-2023 End: 43-04-2474Mlnmcxk.ionized [Moles/volume] in BloodCALCIUM IONIZED BLOOD Lab Routine Waldenstrom macroglobulinemia (HCC) Expected: 05/23/2023 (Approximate), Expires: 04/25/2024[facility] Work Phone: Comment on above:Expected: 05/23/2023 (Approximate), Expires: 04/25/2024Start: 05-23-2023 End: 97-40-2278HXL W Auto Differential panel - BloodCBC + DIFF Lab Routine Waldenstrom macroglobulinemia (HCC) Expected: 05/23/2023 (Approximate), Expires: 04/25/2024[facility] Work Phone: Comment on above:Expected: 05/23/2023 (Approximate), Expires: 04/25/2024Start: 05-23-2023 End: 64-30-6031Lkgdigqqzwrjj metabolic 2000 panel - Serum or PlasmaCOMP METABOLIC PANEL Lab Routine Waldenstrom macroglobulinemia (HCC) Expected: 05/23/2023 (Approximate), Expires: 04/25/2024[facility] Work Phone: Comment on above:Expected: 05/23/2023 (Approximate), Expires: 04/25/2024Start: 05-23-2023 End: 30-35-4780VRXNA/KING,FREE,SERKAPPA/KING,FREE,SER Lab Routine Waldenstrom macroglobulinemia (HCC) Expected: 05/23/2023 (Approximate), Expires: 07/23/2023 [facility] Work Phone: Comment on above:Expected: 05/23/2023 (Approximate), Expires: 07/23/2023Start: 05-23-2023 End: 88-73-7750Azvewte dehydrogenase [Enzymatic activity/volume] in Serum or PlasmaLD LACTATE DEHYDRO Lab Routine Waldenstrom macroglobulinemia (HCC) Expected: 05/23/2023 (Approximate), Expires: 04/25/2024[facility] Work Phone: Comment on above:Expected: 05/23/2023 (Approximate), Expires: 04/25/2024Start: 05-23-2023 End: 18-87-7735ECBSZALQHW PROTEIN, SERUM (BLOOD)MONOCLONAL PROTEIN, SERUM (BLOOD) Lab Routine Waldenstrom macroglobulinemia (HCC) Expected: 05/23/2023 (Approximate), Expires: 04/25/2024[facility] Work Phone: Comment on above:Expected: 05/23/2023 (Approximate), Expires: 04/25/2024Start: 05-23-2023 End: 59-06-2003Asqvoeaat [Mass/volume] in Serum or PlasmaPHOSPHORUS INORGANIC Lab Routine Waldenstrom macroglobulinemia (HCC) Expected: 05/23/2023 (Approxima te), Expires: 04/25/2024[facility] Work Phone: Comment on above:Expected: 05/23/2023 (Approximate), Expires: 04/25/2024Start: 05-23-2023 End: 25-28-3283DWEYCTE ELECTROPHORESIS SERUM W/INTERPPROTEIN ELECTROPHORESIS SERUM W/INTERP Lab Routine Waldenstrom macroglobulinemia (HCC) Expected: (Approximate), Expires: 04/25/2024[facility] Work Phone: Comment on above:Expected: 05/23/2023 (Approximate), Expires: 04/25/2024Start: 05-23-2023 End: 01-58-8745AEDZY VISCOSITYSERUM VISCOSITY Lab Routine Waldenstrom macroglobulinemia (HCC) Expected: 05/23/2023 (Approximate),Expires: 07/23/2023 [facility] Work Phone: Comment on above:Expected: 05/23/2023 (Approximate), Expires: 07/23/2023Start: 05-23-2023 End: 62-04-6869Bnqza [Mass/volume] in Serum or PlasmaURIC ACID BLOOD Lab Routine Waldenstrom macroglobulinemia (HCC) Expected: 05/23/2023 (Approximate),Expires: 04/25/2024[facility] Work Phone: Comment on above:Expected: 05/23/2023 (Approximate), Expires: 04/25/2024Start: 09-49-4371Mrvkr depression screening assessment DEPRESSION SCREENINGParkview Health Bryan Hospitaltart: 05-12-2023 End: 71-58-2778Pgtw-2-Microglobulin [Mass/volume] in Serum or PlasmaB2 MICROGLOBULIN B Lab Routine Waldenstrom macroglobulinemia (HCC) Type 2 diabetes mellitus with diabetic polyneuropathy, without long-term current use of insulin (HCC) Expected: 05/12/2023 (Approximate), Expires: 02/10/2024[facility] Work Phone: Comment on above:Expected: 05/12/2023 (Approximate), Expires: 02/10/2024Start: 05-12-2023 End: 37-06-2798Kknizxr.ionized [Moles/volume] in BloodCALCIUM IONIZED BLOOD Lab Routine Waldenstrom macroglobulinemia (HCC) Type 2 diabetes mellitus with diabetic polyneuropathy, without long-term current use of insulin (HCC) Expected: 05/12/2023 (Approximate), Expires: 02/10/2024[facility] Work Phone: Comment on above:Expected: 05/12/2023 (Approximate), Expires: 02/10/2024Start: 05-12-2023 End: [id number] Auto Differential panel - BloodCBC + DIFF Lab Routine Waldenstrom macroglobulinemia (HCC) Type 2 diabetes mellitus with diabetic po lyneuropathy, without long-term current use of insulin (HCC) Expected: 05/12/2023 (Approximate), Expires: 02/10/2024[facility] Work Phone: Comment on above:Expected: 05/12/2023 (Approximate), Expires: 02/10/2024Start: 05-12-2023 End: 28-52-9049Ynfvljkbkhhun metabolic 2000 panel - Serum or PlasmaCOMP METABOLIC PANEL Lab Routine Waldenstrom macroglobulinemia (HCC) Type 2 diabetes mellitus with diabetic polyneuropathy, without long-term current use of insulin (HCC) Expected: 05/12/2023 (Approximate), Expires: 02/10/2024[facility] Work Phone: Comment on above:Expected: 05/12/2023 (Approximate), Expires: 02/10/2024Start: 05-12-2023 End: 56-28-0605CMPCN/KING,FREE,SERKAPPA/KING,FREE,SER Lab Routine Waldenstrom macroglobulinemia (HCC) Type 2 diabetes mellitus with diabetic polyneuropathy, without long-term current use of insulin (HCC) Expected: 05/12/2023 (Approxim ate), Expires: 07/12/2023[facility] Work Phone: Comment on above:Expected: 05/12/2023 (Approximate), Expires: 07/12/2023Start: 05-12-2023 End: 39-73-3479Glgblrm dehydrogenase [Enzymatic activity/volume] in Serum or PlasmaLD LACTATE DEHYDRO Lab Routine Waldenstrom macroglobulinemia (HCC) Type 2 diabetes mellitus with diabetic polyneuropathy, without long-term current use of insulin (HCC) Expected: 05/12/2023 (Approximate), Expires: 02/10/2024[facility] Work Phone: Comment on above:Expected: 05/12/2023 (Approximate), Expires: 02/10/2024Start: 05-12-2023 End: 79-26-8448WHGNBFRRKH PROTEIN, SERUM (BLOOD)MONOCLONAL PROTEIN, SERUM (BLOOD) Lab Routine Waldenstrom macroglobulinemia (HCC) Type 2 diabetes mellitus with diabetic polyneuropathy, without long-term current use of insulin (HCC) Expected: 05/12/2023 (Approximate), Expires: 02/10/2024[facility] Work Phone: Comment on above:Expected: 05/12/2023 (Approximate), Expires: 02/10/2024Start: 05-12-2023 End: 14-04-6865Lpaxcojqj [Mass/volume] in Serum or PlasmaPHOSPHORUS INORGANIC Lab Routine Waldenstrom macroglobulinemia (HCC) Type 2 diabetes mellitus with d iabetic polyneuropathy, without long-term current use of insulin (HCC) Expected: 05/12/2023 (Approximate), Expires: 02/10/2024[facility] Work Phone: Comment on above:Expected: 05/12/2023 (Approximate), Expires: 02/10/2024Start: 05-12-2023 End: 96-54-2625BTFDJPL ELECTROPHORESIS SERUM W/INTERPPROTEIN ELECTROPHORESIS SERUM W/INTERP Lab Routine Waldenstrom macroglobulinemia (HCC) Type 2 diabetes mellitus with diabetic polyneuropathy, without long-term current use of insulin (HCC) Expected: 05/12/2023 (Approximate), Expires: 02/10/2024[facility] Work Phone: Comment on above:Expected: 05/12/2023 (Approximate), Expires: 02/10/2024Start: 05-12-2023 End: 01-05-4003XSMGO VISCOSITYSERUM VISCOSITY Lab Routine Waldenstrom macroglobulinemia (HCC) Type 2 diabetes mellitus with diabetic polyneuropathy, without long-term current use of insulin (HCC) Expected: 05/12/2023 (Approximate), Expires: 07/12/2023[facility] Work Phone: Comment on above:Expected: 05/12/2023 (Approximate), Expires: 07/12/2023Start: 05-12-2023 End: 23-48-3453Wqhvu [Mass/volume] in Serum or PlasmaURIC ACID BLOOD Lab Routine Waldenstrom macroglobulinemia (HCC) Type 2 diabetes mellitus with diabetic polyneuropathy, without long-term current use of insulin (HCC) Expected: 05/12/2023 (Approximate), Expires: 02/10/2024[facility] Work Phone: Comment on above:Expected: 05/12/2023 (Approximate), Expires: 02/10/2024Start: 03-16-2023 End: 48-73-7427Owbf-2-Microglobulin [Mass/volume] in Serum or PlasmaB2 MICROGLOBULIN B Lab Routine Waldenstrom macroglobulinemia (HCC) Expected: 03/16/2023 (Approximate), Expires: 2024[facility] Work Phone: Comment on above:Expected: 03/16/2023 (Approximate), Expires: 2024Start: 03-16-2023 End: 07-75-1924Vlbnfon.ionized [Moles/volume] in BloodCALCIUM IONIZED BLOOD Lab Routine Waldenstrom macroglobulinemia (HCC) Expected: 03/16/2023 (Approximate), Expires: 2024[facility] Work Phone: Comment on above:Expected: 03/16/2023 (Approximate), Expires: 2024Start: 03-16-2023 End: 65-80-6854EBI W Auto Differential panel - BloodCBC + DIFF Lab Routine Waldenstrom macroglobulinemia (HCC) Expected: 03/16/2023 (Approximate), Expires: 2024[facility] Work Phone: Comment on above:Expected: 03/16/2023 (Approximate), Expires: 2024Start: 03-16-2023 End: 50-54-5239Erebiyvppfdjs metabolic 2000 panel - Serum or PlasmaCOMP METABOLIC PANEL Lab Routine Waldenstrom macroglobulinemia (HCC) Expected: 03/16/2023 (Approximate), Expires: 2024[facility] Work Phone: Comment on above:Expected: 03/16/2023 (Approximate), Expires: 2024Start: 03-16-2023 End: 14-10-5209AOKRP/KING,FREE,SERKAPPA/KING,FREE,SER Lab Routine Waldenstrom macroglobulinemia (HCC) Expected: 03/16/2023 (Approximate), Expires: 05/16/2023 [facility] Work Phone: Comment on above:Expected: 03/16/2023 (Approximate), Expires: 05/16/2023Start: 03-16-2023 End: 77-68-8354Kbszxai dehydrogenase [Enzymatic activity/volume] in Serum or PlasmaLD LACTATE DEHYDRO Lab Routine Waldenstrom macroglobulinemia (HCC) Expected: 03/16/2023 (Approximate), Expires: 2024[facility] Work Phone: Comment on above:Expected: 03/16/2023 (Approximate), Expires: 2024Start: 03-16-2023 End: 15-70-1137PJVZYTEAJL PROTEIN, SERUM (BLOOD)MONOCLONAL PROTEIN, SERUM (BLOOD) Lab Routine Waldenstrom macroglobulinemia (HCC) Expected: 03/16/2023 (Approximate), Expires: 2024[facility] Work Phone: Comment on above:Expected: 03/16/2023 (Approximate), Expires: 2024Start: 03-16-2023 End: 45-19-4270Ligpfslyp [Mass/volume] in Serum or PlasmaPHOSPHORUS INORGANIC Lab Routine Waldenstrom macroglobulinemia (HCC) Expected: 03/16/2023 (Approxima te), Expires: 2024[facility] Work Phone: Comment on above:Expected: 03/16/2023 (Approximate), Expires: 2024Start: 03-16-2023 End: 63-77-7600HUKMNJK ELECTROPHORESIS SERUM W/INTERPPROTEIN ELECTROPHORESIS SERUM W/INTERP Lab Routine Waldenstrom macroglobulinemia (HCC) Expected: 06/2023 (Approximate), Expires: 2024[facility] Work Phone: Comment on above:Expected: 03/16/2023 (Approximate), Expires: 2024Start: 03-16-2023 End: 51-49-0061ZXAPM VISCOSITYSERUM VISCOSITY Lab Routine Waldenstrom macroglobulinemia (HCC) Expected: 03/16/2023 (Approximate),Expires: 05/16/2023 [facility] Work Phone: Comment on above:Expected: 03/16/2023 (Approximate), Expires: 05/16/2023Start: 03-16-2023 End: 00-53-2972Tzoum [Mass/volume] in Serum or PlasmaURIC ACID BLOOD Lab Routine Waldenstrom macroglobulinemia (HCC) Expected: 03/16/2023 (Approximate),Expires: 2024[facility] Work Phone: Comment on above:Expected: 03/16/2023 (Approximate), Expires: 2024Start: 02-07-2023 End: 92-63-4506IKK W Auto Differential panel - BloodCBC + DIFF Lab Routine Waldenstrom macroglobulinemia (HCC) Monoclonal gammopathy Malignant lymphoma, lymphoplasmacytic (HCC) Other iron deficiency anemia Type 2 diabetes mellitus with diabetic polyneuropathy, without long-term current use of insulin (HCC) Expected: 02/07/2023, Expires: 04/09/2023[facility] Work Phone: Comment on above:Expected: 02/07/2023, Expires: 04/09/2023Start: 02-07-2023 End: 88-55-4389Dyuckqwfxpgwo metabolic 2000 panel - Serum or PlasmaCOMP METABOLIC PANEL Lab Routine Waldenstrom macroglobulinemia (HCC) Monoclonal gammopathy Malignant lymphoma, lymphoplasmacytic (HCC) Other iron deficiency anemia Type 2 diabetes mellitus with diabetic polyneuropathy, without long-term current use of insulin (HCC) Expected: 02/07/2023, Expires: 04/09/2023[facility] Work Phone: Comment on above:Expected: 02/07/2023, Expires: 04/09/2023Start: 02-07-2023 End: 79-67-3372Kmdvrnvwqr A1c in BloodHGB A1C Lab Routine Waldenstrom macroglobulinemia (HCC) Monoclonal gammopathy Malignant lymphoma, ly mphoplasmacytic (HCC) Other iron deficiency anemia Type 2 diabetes mellitus with diabetic polyneuropathy, without long-term current use of insulin (HCC) Expected: 02/07/2023, Expires: 04/09/2023[facility] Work Phone: Comment on above:Expected: 02/07/2023, Expires: 04/09/2023Start: 02-07-2023 End: 10-01-6075MPBAWEXETG PROTEIN, SERUM (BLOOD)MONOCLONAL PROTEIN, SERUM (BLOOD) Lab Routine Waldenstrom macroglobulinemia (HCC) Monoclonal gammopathy Malignant lymphoma, lymphoplasmacytic (HCC) Other iron deficiency anemia Type 2 diabetes mellitus with diabetic polyneuropathy, without long-term current use of insulin (HCC) Expected: 02/07/2023, Expires: 04/09/2023[facility] Work Phone: Comment on above:Expected: 02/07/2023, Expires: 04/09/2023Start: 02-07-2023 End: 25-63-8962NAZF ELECT SERUM WITH ALCIDES AND INTERPPROT ELECT SERUM WITH ALCIDES AND INTERP Lab Routine Waldenstrom macroglobulinemia (HCC) Monoclonal gammopathy Malignant lymphoma, lymphoplasmacytic (HCC) Other iron deficiency anemia Type 2 diabetes mellitus with diabetic polyneuropathy, without long-term current use of insulin (HCC) Expected: 02/07/2023, Expires: 04/09/2023[facility] Work Phone: Comment on above:Expected: 02/07/2023, Expires: 04/09/2023Start: 03-82-0006Rnnhq BMI ScreeningAdult BMI ScreeningPending sale to [facility]art: 07-45-4857Lrrdxmc ScreeningTobacco ScreeningPending sale to [facility]art: 01-33-0720Ewwms depression screening assessmentDEPRESSION SCREENINGParkview Health Bryan Hospitaltart: 11-11-2022 End: 13-78-2109Nzgj-2-Microglobulin [Mass/volume] in Serum or PlasmaB2 MICROGLOBULIN B Lab Routine Waldenstrom macroglobulinemia (HCC) Expected: 11/11/2022 (Approximate), Expires: 08/11/2023[facility] Work Phone: Comment on above:Expected: 11/11/2022 (Approximate), Expires: 08/11/2023Start: 11-11-2022 End: 63-63-8432Mljqqhf.ionized [Moles/volume] in BloodCALCIUM IONIZED BLOOD Lab Routine Waldenstrom macroglobulinemia (HCC) Expected: 11/11/2022 (Approximate), Expires: 08/11/2023[facility] Work Phone: Comment on above:Expected: 11/11/2022 (Approximate), Expires: 08/11/2023Start: 11-11-2022 End: 00-64-3393JKG W Auto Differential panel - BloodCBC + DIFF Lab Routine Waldenstrom macroglobulinemia (HCC) Expected: 11/11/2022 (Approximate), Expires: 08/11/2023[facility] Work Phone: Comment on above:Expected: 11/11/2022 (Approximate), Expires: 08/11/2023Start: 11-11-2022 End: 08-01-3907Svyskuowwxwji metabolic 2000 panel - Serum or PlasmaCOMP METABOLIC PANEL Lab Routine Waldenstrom macroglobulinemia (HCC) Expected: 11/11/2022 (Approximate), Expires: 08/11/2023[facility] Work Phone: Comment on above:Expected: 11/11/2022 (Approximate), Expires: 08/11/2023Start: 11-11-2022 End: 34-46-2770XEZCY/KING,FREE,SERKAPPA/KING,FREE,SER Lab Routine Waldenstrom macroglobulinemia (HCC) Expected: 11/11/2022 (Approximate), Expires: 01/11/2023 [facility] Work Phone: Comment on above:Expected: 11/11/2022 (Approximate), Expires: 01/11/2023Start: 11-11-2022 End: 95-17-7944Gpwiwve dehydrogenase [Enzymatic activity/volume] in Serum or PlasmaLD LACTATE DEHYDRO Lab Routine Waldenstrom macroglobulinemia (HCC) Expected: 11/11/2022 (Approximate), Expires: 08/11/2023[facility] Work Phone: Comment on above:Expected: 11/11/2022 (Approximate), Expires: 08/11/2023Start: 11-11-2022 End: 43-46-7827KBLFPHEKAB PROTEIN, SERUM (BLOOD)MONOCLONAL PROTEIN, SERUM (BLOOD) Lab Routine Waldenstrom macroglobulinemia (HCC) Expected: 11/11/2022 (Approximate), Expires: 08/11/2023[facility] Work Phone: Comment on above:Expected: 11/11/2022 (Approximate), Expires: 08/11/2023Start: 11-11-2022 End: 31-57-3626Wxdstzjpd [Mass/volume] in Serum or PlasmaPHOSPHORUS INORGANIC Lab Routine Waldenstrom macroglobulinemia (HCC) Expected: 11/11/2022 (Approxima te), Expires: 08/11/2023[facility] Work Phone: Comment on above:Expected: 11/11/2022 (Approximate), Expires: 08/11/2023Start: 11-11-2022 End: 86-99-5439IGXHEXV ELECTROPHORESIS SERUM W/INTERPPROTEIN ELECTROPHORESIS SERUM W/INTERP Lab Routine Waldenstrom macroglobulinemia (HCC) Expected: 01/2023 (Approximate), Expires: 08/11/2023[facility] Work Phone: Comment on above:Expected: 11/11/2022 (Approximate), Expires: 08/11/2023Start: 11-11-2022 End: 93-19-1914UNWYP VISCOSITYSERUM VISCOSITY Lab Routine Waldenstrom macroglobulinemia (HCC) Expected: 11/11/2022 (Approximate),Expires: 01/11/2023 [facility] Work Phone: Comment on above:Expected: 11/11/2022 (Approximate), Expires: 01/11/2023Start: 11-11-2022 End: 97-55-0164Nofqj [Mass/volume] in Serum or PlasmaURIC ACID BLOOD Lab Routine Waldenstrom macroglobulinemia (HCC) Expected: 11/11/2022 (Approximate),Expires: 08/11/2023[facility] Work Phone: Comment on above:Expected: 11/11/2022 (Approximate), Expires: 08/11/2023Start: 76-80-0021CQVDXFWHGA ASSESSMENTDEPRESSION ASSESSMENT [facility]: 08-12-2022 End: 58-05-4781Mxmy-2-Microglobulin [Mass/volume] in Serum or PlasmaB2 MICROGLOBULIN B Lab Routine Waldenstrom macroglobulinemia (HCC) Expected: 08/12/2022 (Approximate), Expires: 05/12/2023[facility] Work Phone: Comment on above:Expected: 08/12/2022 (Approximate), Expires: 05/12/2023Start: 08-12-2022 End: 54-37-4028Wdkdwhn.ionized [Moles/volume] in BloodCALCIUM IONIZED BLOOD Lab Routine Waldenstrom macroglobulinemia (HCC) Expected: 08/12/2022 (Approximate), Expires: 05/12/2023[facility] Work Phone: Comment on above:Expected: 08/12/2022 (Approximate), Expires: 05/12/2023Start: 08-12-2022 End: 26-26-1654MMJ W Auto Differential panel - BloodCBC + DIFF Lab Routine Waldenstrom macroglobulinemia (HCC) Expected: 08/12/2022 (Approximate), Expires: 05/12/2023[facility] Work Phone: Comment on above:Expected: 08/12/2022 (Approximate), Expires: 05/12/2023Start: 08-12-2022 End: 84-82-8737Tlawavqicjnha metabolic 2000 panel - Serum or PlasmaCOMP METABOLIC PANEL Lab Routine Waldenstrom macroglobulinemia (HCC) Expected: 08/12/2022 (Approximate), Expires: 05/12/2023[facility] Work Phone: Comment on above:Expected: 08/12/2022 (Approximate), Expires: 05/12/2023Start: 08-12-2022 End: 55-98-9658ZHRRN/KING,FREE,SERKAPPA/KING,FREE,SER Lab Routine Waldenstrom macroglobulinemia (HCC) Expected: 08/12/2022 (Approximate), Expires: 10/12/2022 [facility] Work Phone: Comment on above:Expected: 08/12/2022 (Approximate), Expires: 10/12/2022Start: 08-12-2022 End: 02-26-8959Jrmbpfs dehydrogenase [Enzymatic activity/volume] in Serum or PlasmaLD LACTATE DEHYDRO Lab Routine Waldenstrom macroglobulinemia (HCC) Expected: 08/12/2022 (Approximate), Expires: 05/12/2023[facility] Work Phone: Comment on above:Expected: 08/12/2022 (Approximate), Expires: 05/12/2023Start: 08-12-2022 End: 70-58-1052PZGLDZKZIG PROTEIN, SERUM (BLOOD)MONOCLONAL PROTEIN, SERUM (BLOOD) Lab Routine Waldenstrom macroglobulinemia (HCC) Expected: 08/12/2022 (Approximate), Expires: 05/12/2023[facility] Work Phone: Comment on above:Expected: 08/12/2022 (Approximate), Expires: 05/12/2023Start: 08-12-2022 End: 29-08-1836Ozhdiqxbc [Mass/volume] in Serum or PlasmaPHOSPHORUS INORGANIC Lab Routine Waldenstrom macroglobulinemia (HCC) Expected: 08/12/2022 (Approxima te), Expires: 05/12/2023[facility] Work Phone: Comment on above:Expected: 08/12/2022 (Approximate), Expires: 05/12/2023Start: 08-12-2022 End: 89-74-0868WVBAPCO ELECTROPHORESIS SERUM W/INTERPPROTEIN ELECTROPHORESIS SERUM W/INTERP Lab Routine Waldenstrom macroglobulinemia (HCC) Expected: 02/2022 (Approximate), Expires: 05/12/2023[facility] Work Phone: Comment on above:Expected: 08/12/2022 (Approximate), Expires: 05/12/2023Start: 08-12-2022 End: 78-34-5247LITOS VISCOSITYSERUM VISCOSITY Lab Routine Waldenstrom macroglobulinemia (HCC) Expected: 08/12/2022 (Approximate),Expires: 10/12/2022 [facility] Work Phone: Comment on above:Expected: 08/12/2022 (Approximate), Expires: 10/12/2022Start: 08-12-2022 End: 20-95-5097Lbmtx [Mass/volume] in Serum or PlasmaURIC ACID BLOOD Lab Routine Waldenstrom macroglobulinemia (HCC) Expected: 08/12/2022 (Approximate),Expires: 05/12/2023[facility] Work Phone: Comment on above:Expected: 08/12/2022 (Approximate), Expires: 05/12/2023Start: 93-17-6624Uhuhzyufg vaccinationLUNG CANCER SCREENING [facility]: 44-92-5191Rweezqmia for malignant neoplasm of lungLung Cancer ScreeningParkview Health Bryan Hospitaltart: 31-70-5154Jflryfwfy vaccinationParkview Health Bryan Hospitaltart: 85-08-9447SWGDW-19 VACCINE (3 - Booster for [place] series)COVID-19 VACCINE (3 - Booster for [place] series)[facility]: 01-13-7601NRXNV- 19 VACCINE (3 - [place] risk 3-dose series)COVID-19 VACCINE (3 - [place] risk 3- dose series)[facility]: 71-01-7066DLFOO-19 VACCINE (3 - [place] risk series)COVID-19 VACCINE (3 - [place] risk series)[facility]: 33-07-3509RUDLOTMGPV ASSESSMENTDEPRESSION ASSESSMENTParkview Health [facility] Hospitaltart: 05-62-8079QRUKRFYHOJZU (2 - PPSV23 if available, else PCV20)PNEUMOCOCCAL (2 - PPSV23 if available, else PCV20)[facility]: 01-29-7745IQWEZBKKSZJW (2 - PPSV23 or PCV20)PNEUMOCOCCAL (2 - PPSV23 or PCV20)[facility]: 39-93-4091COEFMGQSJQCI (2 - PPSV23 if available, else PCV20)PNEUMOCOCCAL (2 - PPSV23 if available, else PCV20)[facility]: 44-39-0464CEVHRPLQJYLI (2 - PPSV23 or PCV20)PNEUMOCOCCAL (2 - PPSV23 or PCV20)[facility]: 02-78-2895Jqujcerczsyz vaccinationPneumococcal Vaccine (2 - PPSV23 or PCV20) [facility]: 69-63-3484Irpwhpzgnswdtq of varicella zoster vaccine Zoster (Shingles) Vaccine (1 of 2)Localist SystemStart: 2014 SHINGRIX VACCINE (1 of 2)SHINGRIX VACCINE (1 of 2)[facility]: 21-53-3623MYQFCWDYR (FIT-DNA)COLOGUARD (FIT-DNA)[facility]: 69-22-4006UeeeepsuiguFWWBKJHXXDWDazwbvmue ClinicStart: 44-67-6504HHXWSWELNM CANCER SCREENINGCOLORECTAL CANCER SCREENINGParkview Health [facility] Hospitaltart: 42-14-8265YV COLONOGRAPHYCT COLONOGRAPHYParkview Health Bryan Hospitaltart: 62-14-1781NUSNO OCCULT BLOOD FECAL OCCULT BLOODParkview Health Bryan Hospitaltart: 52-13-2346Wfpqjvozc for malignant neoplasm of colonParkview Health Bryan Hospitaltart: 41-73-0147SXDKNXOBOCTZPRLCENVMBUWFRI [facility]: 58-94-7358YVfP,Tdap and Td Vaccines (1 - Tdap)DTaP,Tdap and Td Vaccines (1 - Tdap)[facility]: 36-43-9844AREQAWZET B (1 of 3 - Risk 3-dose series)HEPATITIS B (1 of 3 - Risk 3-dose series)[facility]: 61-34-3111OAREXBFJ VACCINE (1 of 2)SHINGRIX VACCINE (1 of 2) [facility]: 49-23-3270Ccwlq microalbumin profileCincinnati Va Medical Center Start: 21-01-2661Hdqjj BMI Follow Up PlanAdult BMI Follow Up PlanPending sale to [facility]althtart: 41-03-9676ZQZCEA PCP TEAM CHRONIC DISEASE VISITANNUAL PCP TEAM CHRONIC DISEASE VISITParkview Health Bryan Hospitaltart: 49-29-9691Gcrtwbz Screening Anxiety ScreeningParkview Health Bryan Hospitaltart: 97-20-1354Vulsawnfzj ScreeningDepression ScreeningParkview Health Bryan Hospitaltart: 20-52-8595Zmwubaxjx B surface antibody levelLDL CHOLESTEROLParkview Health Bryan Hospitaltart: 05-66-8238LIRGRFNUW C SCREENINGHEPATITIS C SCREENINGParkview Health Bryan Hospitaltart: 00-80-0873Cijbskkgn C screeningHepatitis C ScreeningParkview Health Bryan Hospitaltart: 55-84-2305QPK SCREENINGHIV SCREENINGParkview Health [facility] Hospitaltart: 19-72-8720ECX screeningHIV ScreeningParkview Health Bryan Hospitaltart: 30-20-5140GSS PNEUMOVAX PRIOR TO AGE 65ONE PNEUMOVAX PRIOR TO AGE 65Park[facility] Hospitaltart: 89-48-5714Ocdojomkkj ScreeningDepression ScreeningProGerman Hospitaltart: comp foot exam completedDIABETIC FOOT EXAMParkview Health Bryan Hospitaltart: 58-04-2424Zflmkjtl foot examinationDiabetic Foot ExamParkview Health Bryan Hospitaltart: 02-19-0826Iylejcht screeningDilated Retinal ExamCincinnati Va Medical Center Start: 20-07-4032Wltepbgzm B screeningURINE ALBUMIN:CREATININE RATIOParkview Health Bryan Hospitaltart: 90-68-5063Cxrqucomp C antibody, confirmatory testDILATED RETINAL EXAMParkview Health Bryan Hospitaltart: 71-23-5530Uealtgenpq A1c/Hemoglobin.total in Blood RAW3QKhjjgaekkParkview Health Bryan Hospitaltart: 65-22-8471AXXCPJJUW B (1 of 3 - 3-dose series) HEPATITIS B (1 of 3 - 3-dose series)[facility]: 62-78-5335Muzektfeb for malignant neoplasm of colonKindred HospitalStart: 36-41-2359Fcnxxnc CounselingAdams-Nervine Asylumcc CounselingOhioHealth Berger Hospital End: 25-87-2131NDJ W Auto Differential panel - BloodCOMPLETE BLOOD COUNT AND DIFFERENTIAL Lab Routine Waldenstrom macroglobulinemia Once per week for 2 Occurrences [facility]27[facility]2024 [facility] Work [facility]: Comment on above:Once per week for 2 Occurrences starting 08/27/2024 until 08/27/2025 End: 46-37-2540XcxxwjxgflbIhcbzfawhuh GI Routine Encounter for colonoscopy due to history of colonic polyp 1 Occurrences starting 01/08/2024 until 01/07/2025 [facility] HospitalComment on above:1 Occurrences starting 01/08/2024 until 5Comprehensive metabolic 2000 panel - Serum or PlasmaSelect [facility] [place] End: 54-83-6229Kxyvhkcrhxxfe metabolic 2000 panel - Serum or PlasmaCOMPREHENSIVE METABOLIC PANEL Lab Routine [place]strom macroglobulinemia Once per week for 2 Occurrences starting 08/27/2024 [address]CSt[facility] Elizabeth HospitalComment on above:Once per week for 2 Occurrences starting 08/27/2024 until 08/27/2025 End: 59-21-1437LrjuzskqwwjkmvekdjrvqonlreIIS GI Routine Gastroesophageal reflux disease, unspecified whether esophagitis present 1 Occurrences starting 01/08/2024 until 01/07/2025[facility] Work Phone: Comment on above:1 Occurrences starting 01/08/2024 until 01/07/2025Microalbumin [Mass/volume] in UrineSelect Medical Cleveland Clinic Rehabilitation Hospital, AvonPatient EducationKnow your MedLake [facility] Work Phone: End: 51-53-0416Xbwgjeqh PathologySurgical Pathology Pathology and Cytology Routine Epidermoid cyst of skin of chest 1 Occurrences starting 06/24/2024 until 06/24/2025[facility] Work Phone: Comment on above:1 Occurrences starting 06/24/2024 until 06/24/2025XR Cervical spine Views W flexion and W extensionBaptist Hospital Immunizations Immunization DateImmunizationNotesCare WaqyziwwJojslxon61-29-9965HUVMW-02 (MODERNA) 12Y and olderBenjamin Ball DO Work Phone: [facility] [place]09-05-2024influenza, injectable, madin kiel canine kidney, preservative freeJaimee Rachael REGISTERED REPRESENTATIVE.SIGNAL CONSTRUCTOR Work Phone: [facility] CenterHiitne44-09-8914vxiimjhlpnz syncytial virus (RSV) vaccine, bivalent (ABRYSVO)Trinh Rachael REGISTERED REPRESENTATIVE.SIGNAL CONSTRUCTOR Work Phone: [facility] CenterBjpdys13-63-6675vvrxjl vaccine recombinant Wanda Jennifer PA-C Work Phone: [facility] CenterEbnlkb40-98-3092HEITG-33 (PFIZER) 12Y and olderBenjamin Ball DO Work Phone: [facility] [place]01-19-2024Influenza, injectable, Madin [place] Canine Kidney, preservative free, quadrivalentMindy Jennifer PA-C Work Phone: [facility] CenterMdxcpc14-26-7629uhzqjjbku virus vaccine, unspecified formulationOlamide Velasquez REGISTERED REPRESENTATIVE-SIGNAL CONSTRUCTOR Work Phone: [facility]09-20-2023zoster vaccine Bhavya Rodriguez PA-C Work Phone: [facility] CenterKfvgyv05-89-8678zexmunctcqui polysaccharide vaccine, 23 valentBenashley Mays Other [facility] [employer] Other [id number], injectable, quadrivalent, preservative freeHolly Micheal REGISTERED REPRESENTATIVE.SIGNAL CONSTRUCTOR Work Phone: [facility] CenterRbuuvy52-04-4873bnubdacln virus vaccine, unspecified formulationJoon Piper MD Work Phone: [facility] CenterFyvyab74-03-0377KUVPY-47 Ad26.COV2.S ([place])Joby Mays DO Work Phone: [facility] [facility] [place]07-21-2021COVID-19 Ad26.COV2.S ([place])Joby Mays DO Work Phone: [facility] [place]10-14-2020influenza virus vaccine, unspecified formulationNot Ref [facility] 74-96-1562kbkiswmjs, seasonal, injectableHolly Micheal REGISTERED REPRESENTATIVE.SIGNAL CONSTRUCTOR Work Phone: [facility] CenterShhxyw76-27-9119fdnqztupg, injectable, quadrivalent, preservative freeHolly Micheal REGISTERED REPRESENTATIVE.SIGNAL CONSTRUCTOR Work Phone: [facility] CenterNwpbrm89-07-0289hzosxkhew, injectable, quadrivalent, preservative freeHolly Micheal REGISTERED REPRESENTATIVE.SIGNAL CONSTRUCTOR Work Phone: [facility] CenterUladnu38-71-6913hulukwkva, injectable, quadrivalent, preservative freeHolly Micheal REGISTERED REPRESENTATIVE.SIGNAL CONSTRUCTOR Work Phone: [facility] CenterUfosvd59-27-7050diknwxzbd virus vaccine, split virus (incl. purified surface antigen)Joby Mays Other [facility] CenterDspsbx44-27-5509zrphjqhff virus vaccine, unspecified formulationFirlees Regional Medical Yoczfr55-62-2775yotzoidbq, intradermal, quadrivalent, preservative free, injectableHolly Micheal REGISTERED REPRESENTATIVE.SIGNAL CONSTRUCTOR Work Phone: [facility] CenterUxzocg95-93-1422fvzvysda influenza, intradermal, preservative freeHolly Micheal REGISTERED REPRESENTATIVE.SIGNAL CONSTRUCTOR Work Phone: [facility] CenterIidjns59-18-8161aqqbenrlzorm conjugate vaccine, 13 valentHolly Micheal REGISTERED REPRESENTATIVE.SIGNAL CONSTRUCTOR Work Phone: [facility] CenterDajvej13-61-2910ibvauytlaltj Conjugate, unspecified formulation; Translations: [Need for prophylactic vaccination ag ainst Streptococcus pneumoniae (pneumococcus)]Joby Mays Other [facility] Other 741332-01-8167pxpbzjmto, intradermal, quadrivalent, preservative free, injectableHolly Micheal REGISTERED REPRESENTATIVE.SIGNAL CONSTRUCTOR Work Phone: [facility] Payers DatePayer CategoryPayerPolicy [id number] [facility] Care - [facility] [employer] .[id number]77-73-0254Pupfjwl [facility] [id number] 2015-Present [phone] [address] [place] [address] [id number] .2.840.562251.1.13.159.2.7.3.034866.95813-51-6161Jcnchcs Health Insurance 1.2.840.882195.1.13.693.2.7.9.185645.529795.46987-49-0052[place] 1.2.840.660603.1.13.159.2.7.3.726[id number] 2.16840.1.807640.3.57[id number] 2.0.1.896513.3.57[id number] 2.840.1.535587.3.579.2.[id number] 2.0.1.225448.3.57[id number] 2.840.1.897703.3.57[id number] 2.0.1.726345.3.57[id number] 2.840.1.120096.3.579.2.[id number] 2.0.1.840577.3.57[id number] 2.840.1.753106.3.579.2.294669-15-0831Bzmhbnr24393429 2.840.1.668319.3.57[id number] 2.840.1.682346.3.579.2.[id number] 2.840.1.177108.3.579.[id number] 2.16.840.1.821506.3.579.2.574197-88-4122Rmmbflf4719632 2.16.840.1.779893.3.579.2.376959-32-7044Wwreiby0697984 2.16840.1.305622.3.579.[id number] 2.16840.1.640461.3.579.2.244227-42-6696Ozcfndr5146223 2.840.1.282746.3.579.2.199733-54-3559Nekcvfq7624120 2.840.1.828285.3.579.2.684391-12-8086Yfgjgon7955061 2.0.1.827166.3.579.2.664147-37-6253Ufijwmf1251511 2.840.1.111833.3.579.2.979651-07-4409Pkearep8064496 2.840.1.749488.3.579.2.391841-54-5005Jpforqm8609400 2.840.1.152369.3.579.2.915053-22-3540Shlyzcj0235993 2.840.1.862583.3.579.2.177944-47-9473Tooyviz6301355 2.840.1.731317.3.579.2.108063-38-8713Jify-rdx19009451909-95-2359Vawlest [id number] 2.16840.1.862015.3.579.2.175Sugfteh76885802 2.840.1.227980.3.579.2.531 Social History DateTypeDetailFacilityStart: 79-25-5714Afscmhx smoking status NHISEx-smoker [facility]: 09-12-2024 End: 02-96-8198Luhgqly of tobacco useCurrent smokerParkview Health Bryan Hospitaltart: 03-10-2020 End: 95-84-3698Wisadvvrpq smoked current (pack per day) - Lafoaljk8Hyhdoyqjw ClinicStart: 03-10-2020 End: 70-98-5464Vxvaepz use and exposureSmokeless tobacco non-userParkview Health Bryan Hospitaltart: 02-10-2022 End: 82-16-1570Kxcgdjl intakeEx-drinker (finding)[facility] Hospitaltart: 03-10-2020 End: 41-56-6419Gvtaxgd Commentquit [address] [place], [place] [address]tart: 84-44-3694Szy Assigned At BirthNot on fileParkview Health Bryan Hospitaltart: 06-21-2021 End: 33-96-5005Fwzawuek to SARS-CoV-2 (event)Not sureParkview Health Bryan Hospitaltart: 03-08-1993 End: 24-98-3832Ojrflxf of tobacco useCigarette SmokerParkview Health Bryan Hospitaltart: 02-09-2023 End: 93-64-3195Azk [facility]igned [facility]: [facility]1993 End: 90-82-7474Lvrpapk smoking status NHISSmokes tobacco dailyC[facility] Medical Center History of tobacco usePassive smokerCincinnati Va Medical CenterAdult Depression Screening Vtpxnarwdu9Ywqvzkdqs ClinicStart: 77-04-6620Kfdgggx smoking status NHISNever smoked tobacco (finding)[facility]: 64-44-0314Qmk [facility]igned At [facility]: 07-01-2024 End: 12-24-7823Mqeghegxs beverage intakeCurrent drinker of alcohol (finding) [facility] SystemHow often to you have a drink containing alcohol?2-3 time sa weekNOMS HealthcareHow many standard drinks containing alcohol do you have on a typical day?3 or 4NOMS HealthcareHow often do you have 6 or more drinks on 1 occasion?MonthlyNOGA HealthcareStart: 84-67-9483Tbnwvji Commentcaffeine: 2-3 cups per dayNOGA HealthcareStart: 05-13-2015 End: 20-15-1869CkfJjmq (finding)[facility] Hospitaltart: 79-50-9295Gmeuzla CommentweHutchinson Regional Medical Centertart: 73-42-0277Injfjjh CommentoccasionallyOhioHealth [facility] Medical Equipment Procedure CodeEquipment CodeEquipment Original TextEquipment IdentifierDates Implantation of hypoglossal nerve stimulator ()[id number] FDAStart: 94-79-2560Myuttnpjdkoz of hypoglossal nerve stimulatorImplantable sleep apnoea treatment system, respiration-sensing()[id number] FDAStart: 09-12-2024 Implantation of hypoglossal nerve stimulator ()[id number] FDAStart: 41-41-1956Qgvgd Duragen Plus Bovine Collagen Matrix 3x3in Soft Tissue Patch - [id number] Start: 62-51-4463Gke-Of-A-Kind Implant - [id number]: 09-27-2016 Comment on above:Description: Dirrect inject MURRAY Cement- trial only- do not chargeMesh Micro 79o56w2.2mm - [id number]: 83-03-5414Ycrlh 1.5mm 4mm Bone Self Drill Cross Pin Craniomaxillofacial - [id number]: 09-27-2016 Goals DatePatient GoalDesired Activity/State Functional Status QeldHnjibijlpvAgtosuWzqltwew11-66-8530Vnp you deaf, or do you have serious difficulty hearingNo 09/30/2016 12:24 PM [facility] 47-75-1822Lnx you blind, or do you have serious difficulty seeing, even when wearing glassesNo 09/30/2016 12:24 PM [facility] 41-11-2646Zf you have serious difficulty walking or climbing stairsNo 09/30/2016 12:24 PM [facility]reyM[facility] HospitalKncwpc04-19-3394Hb you have difficulty dressing or bathingNo 09/30/2016 12:24 PM Arden Humphrey [facility] 76-55-2342Jfkostx of a physical, mental, or emotional condition, do you have difficulty doing errands alone such as visiting a physician's office or shopping No 09/30/2016 12:24 PM Arden Humphrey [facility] Mental Status IlkcLvedvlnewnOmqpczZcyjtlbj17-46-0674Zbqawoh of a physical, mental, or emotional condition, do you have serious difficulty concentrating, remembering, or making decisionsNo 09/30/2016 12:24 PM Arden Humphrey [facility] Clinical Notes 08-05-2021 to 04-01-2025 Note Date & UgjzByolVqkqklpn99-32-2758 Telephone encounter Note* Telephone Encounter - Roseann Cormier RPh - 04/01/2025 2:45 PM EDT We have initiated a [employer] PAP application for Rituxan and still need Kodi's signature. He will also need to complete PFA appointment. It looks like he refused the PFA on 03/04/25 and willwait until September when he's able to get Medicare. Call placed to Kodi today - went to and I left a message to call back. Roseann Cormier RPh [facility] Work Phone: [phone] Miscellaneous Notes* Telephone Encounter - Roseann Cormier RPh - 04/01/2025 2:45 PM EDT We have initiated a [employer] PAP application for Rituxan and still need Kodi's signature. He will also need to complete PFA appointment. It looks like he refused the PFA on 03/04/25 and willwait until September when he's able to get Medicare. Call placed to Kodi today - went to and I left a message to call back. Roseann Cormier RPh documented in this encounterCincinnati [facility] Medical Center04-09-2025 Telephone encounter Note * Telephone Encounter - Tatum Manriquez RN - 01/14/2025 3:57 PM EDT VM left for pt with JR message below. Encouraged to call with any questions, needs or concerns. Follow up appointment date and time provided. Tatum Manriquez RN [facility]04-09-2025 Miscellaneous Notes* Telephone Encounter - Tatum Manriquez RN - 01/14/2025 3:57 PM EDT VM left for pt with JR message below. Encouraged to call with any questions, needs or concerns. Follow up appointment date and time provided. Tatum Manriquez RN documented in this encounterCincinnati Va Medical Center04-07-2025 History of Present illness Narrative* Evan Eugene, - 01/12/2025 1:15 PM EDT No chief complaint on file. Subjective Patient is here for his inspire step up He has been doing well. He will be losing his insurance in February so needs to ramp up a little Quickerand get his sleep study at the end of January. He has been tolerating it well. He needs to go to bed earlier as he is falling asleep in the recliner and then not going bed to later at night so not turning it on till then. He knows he needs to go to bed earlier and he is going to try to do that especially leading up to his sleep study since we are doing it rather early. Past Medical History: Diagnosis Date Anemia Anxiety Asthma Controlled type 2 diabetes mellitus without complication, without long-term current use of insulin 07/22/2013 Assessment: BG WNL Plan: continue metformin, continue to monitor CSF leak 07/27/2016 Assessment: no drainage from the right ear Plan: EVD clamped after 8:30, monitor for drainage, check manual pressure tomorrow and if ICP WNL, SA drain can be removed. Depression ([facility]) Depressive disorder ([facility]) 07/22/2013 Dysfunction of left eustachian tube 03/18/2024 Encephalocele 07/27/2016 Procedure(s): 1. Right middle cranial fossa approach for CSF leak repair and cauterization of encephalocele 2. Intraoperative placement of lumbar SA drain 3. Placement of split thickness bone graft with Hydroset over bone defect in temporal bone 4. Placement of Duragen inlay and pericranial flap onlay after intradural explora Essential hypertension ([facility]) 07/22/2013 Lumbago with sciatica, left side 03/18/2024 Lumbar spondylosis 03/18/2024 Neck pain on left side 07/08/2013 Osteoarthritis of knee 03/18/2024 Otorrhea 03/18/2024 Sleep apnea Type II diabetes mellitus ([facility]) Waldenstrom macroglobulinemia Past Surgical History: Procedure Laterality [...] 2-3 cups per day Allergies: Allopurinol, Doxycycline, Gnjturx-qjvtsp-wouaa pertussis, Acetaminophen, Amlodipine, Hydrocodone, Metoclopramide, Statins, and [...] or dizziness other than in HPI Vitals: 01/12/25 1311 BP: 144/78 Pulse: 75 SpO2: 95% Body mass index is 26.14 kg/m . [...] tremor, bradykinesia or rigidity DTR: Biceps, BR 2/4 Patellar 2/4 No spasticity Gait: Normal to casual gait Romberg's Negative Assessment/Plan Diagnoses and all orders for this visit: TIANNA (obstructive sleep apnea) - VNS Device Interrogation w/simple programming 3 or fewer parameters - Polysomnography; Future Hypersomnia Snoring Numbness 59-year-old male with a history of obstructive sleep apnea with an AHI of 20 leading to daytime hypersomnolence and snoring. He was first diagnosed in 2011. Patient has been tolerating his inspire well. He is gradually ramping up on it. We are going to go slight bit faster to get him his sleep study by the end of the month since he will be losing his insurance. He does have Waldenstrom's and the chemo he had afterwards. We will allow him more healing time because of this reason. He had an x-ray to be sure that all his wires were in the right spot as he was feeling something off however they are all intact and in the right spot without any breakage We did update his PSG 01/09/2024 and this did reveal a moderate TIANNA with an AHI of 19 per. He does have signs that could be consistent with periodic limb movement disorder. History of diabetes and complaint of numbness to BUE and BLE. . . . Plan Continue to work up on the inspire. Polysomnogram with inspire protocol the end of the month He will gradually turned this up every week X-ray showed wires were all intact and everything was structurally sound Monitor for PLMD He needs to get to bed earlier and not fall asleep on the recliner Continue with adequate hours of sleep and try to be active during the day This was discussed with the patient, all questions were answered and they agreed with the treatmentplan. The patient is to call with any worsening of the condition or new symptoms. documented in this encounterKindred HospitalNjmzksrsls28-67-1006 Instructions* Patient Instructions* Beverley Burleson - 01/07/2025 9:13 AM EDT Rituxan today RTC in 8 weeks to continue Rituxan - plan for 2 years of maintenance treatment (11/2026) Labs same day Schedule patient with PFA and president financial institution before next infusion documented in this encounterCincinnati [facility] Medical Center04-02-2025 History of Present illness Narrative* Beverley Burleson - 01/07/2025 9:00 AM EDT Images from the original note were not included. NAME: Kodi Rivas CLINIC NO.: [id number] DATE OF SERVICE: January 07, 2025 (Rachael) Some elements in this clinic note that are critical to medical decision making have been carefully reviewed and included from a prior clinic note dated: November 12, 2024 (Rachael) Referring Provider: Dr. Harrison Mays [...] 2023. - resolved again after re-challenge with Rituxan. Returned again July 2024 His neuropathy is improving. PLAN: Rituxan today RTC in 8 weeks to continue Rituxan - plan for 2 years of maintenance treatment (11/2026) Labs same day Schedule patient with PFA and president financial institution before next infusion HPI: CASE HISTORY: Reverse Chronological Order 11/12/2024-Current - Rituxan q 8 weeks 08/20/2024-09/17/2024 - Rituxan weeky x4 - delayed [...] Rituxan x 4 weekly Updated Visit, January 07, 2025: Kodi returns with his , Anisha. He endorses weakness and burning in both of his legs. Neuropathyin his feet is worse as well - recommended vitamin B complex and alpha lipoic acid. He endorses fatigue and night sweats, denies other B symptoms. Due for Rituxan today. He is losing his insurance next month, will connect him with PFA and a president financial institution before his next infusion. Updated Visit, November 12, 2024: Kodi returns [...] a few weeks - sailing out of [place]. They are driving the whole way. Updated [...] diagnosed with colitis. He was seen at [facility]. He developed blood in his stools. He [...] well. He got engaged just before Madelin 2020. Updated Visit, August 11, 2021: Kodi [...] done on 09/15/[address] Combs at [facility]. He states this [...] levels. 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 There is no height or weight on file to calculate BSA. Exam limited to gross visualization where appropriate. [...] needed. LABORATORY VALUES: WBC (k/uL) Date Value 11/12/2024 [...] Protein, Total (g/dL) Date Value 11/12/2024 6.7 11/12/2024 6.4 Albumin (g/dL) Date Value 11/12/2024 4.3 Calcium, Total (mg/dL) Date Value 11/12/2024 9.5 Alkaline Phosphatase (U/L) Date Value 11/12/2024 93 Bilirubin, Total (mg/dL) Date Value 11/12/2024 0.2 AST (U/L) Date Value 11/12/2024 11 (L) ALT (U/L) Date Value 11/12/2024 13 M-Protein Concentration Date Value 11/12/2024 0.00 g/dL 08/13/2024 0.00 g/dL 07/24/2024 0.00 g/dL 04/17/2024 0.00 g/dL 01/10/2024 0.00 g/dL 11/04/2021 0.21 gm/dL 07/19/2021 0.19 gm/dL 06/24/2021 0.17 gm/dL 03/18/2021 0.19 gm/dL 12/16/2020 0.24 gm/dL DIAGNOSIS: No diagnosis found. PAST MEDICAL HISTORY Diagnosis Date Acid reflux [...] Father Stroke Mother Multiple Sclerosis Sister Trinh Ramirez, REGISTERED REPRESENTATIVE, CELL LINER-C, [facility] Hematology [facility] Oncology Services Provided at: [place], [place] Scribe Attestation: This note was scribed by Beverley Burleson on January 07, 2025 under the direction and supervision of Trinh Ramirez. I attest that all of the information documented is correct to the best of my knowledge. Provider Attestation: I, Trinh Ramirez, attest that all information documented by the above scribe is correct, and was supervised by me and under my direction. CC: Dr. Evan Eugene [address] [facility] [address] [address] Joby Mays documented in this encounterCincinnati Va Medical Center04-02-[address] NoteSt[facility]03-24-20[facility] Telephone encounter Note* Telephone Encounter - Bryanna Rodriguez MA - 12/29/2024 11:25 AM EDT Patient coming in Sunday01/07/25 for follow up labs. Please add lab orders. Thanks. Bryanna Rodriguez MA [facility]03-24-2025 Miscellaneous Notes* Telephone Encounter - Bryanna Rodriguez MA - 12/29/2024 11:25 AM EDT Patient coming in Sunday01/07/25 for follow up labs. Please add lab orders. Thanks. Bryanna Rodriguez MA documented in this encounterCincinnati Va Medical Center02-10-2025 Telephone encounter Note * Telephone Encounter - Tatum Manriquez RN - 11/17/2024 12:42 PM EST Pt informed of JR message, once verified, using 2 patient identifiers. Patient denies any questions, needs or concerns at this time. Appointment verified. Tatum Manriquez RN [facility]02-10-2025 Miscellaneous Notes* Telephone Encounter - Tatum Manriquez RN - 11/17/2024 12:42 PM EST Pt informed of JR message, once verified, using 2 patient identifiers. Patient denies any questions, needs or concerns at this time. Appointment verified. Tatum Manriquez RN documented in this encounterCincinnati Va Medical Center02-05-2025 History of Present illness Narrative* Evan Eugene DO - 11/12/2024 2:45 PM EST Chief Complaint Patient presents with Sleep Apnea [...] Medical History: Diagnosis Date Anemia Anxiety Asthma ([facility]) Controlled type 2 diabetes mellitus without complication, without long-term current use of insulin ([facility]) 07/22/2013 Assessment: BG WNL Plan: continue metformin, continue to monitor CSF leak 07/27/2016 Assessment: no drainage from the right ear Plan: EVD clamped after 8:30, monitor for drainage, check manual pressure tomorrow and if ICP WNL, SA drain can be removed. Depression ([facility]) Depressive disorder ([facility]) 07/22/2013 Dysfunction of left eustachian tube 03/18/2024 Encephalocele ([facility]) 07/27/2016 Procedure(s): 1. Right middle cranial fossa approach for CSF leak repair and cauterization of encephalocele 2. Intraoperative placement of lumbar SA drain 3. Placement of split thickness bone graft with Hydroset over bone defect in temporal bone 4. Placement of Duragen inlay and pericranial flap onlay after intradural explora Essential hypertension ([facility]) 07/22/2013 Lumbago with sciatica, left side 03/18/2024 Lumbar spondylosis 03/18/2024 Neck pain on left side 07/08/2013 Osteoarthritis of knee 03/18/2024 Otorrhea 03/18/2024 Sleep apnea Type II diabetes mellitus ([facility]) Waldenstrom macroglobulinemia Past Surgical History: Procedure Laterality [...] 2-3 cups per day Allergies: Allopurinol, Doxycycline, Mcsuyho-gqdxuk-hhuap pertussis, Acetaminophen, Amlodipine, Hydrocodone, Metoclopramide, Statins, and [...] with instructions to him how to gradually escalatethe stimulation over the next few weeks until [...] the sensitivity likely due to the treatment fromhis Waldenstrom's Monitor for PLMD Continue with adequate hours of sleep and try to be active during the day This was discussed with the patient, all questions were answered and they agreed with the treatmentplan. The patient is to call with any worsening of the condition or new symptoms. Return to clinic: Once Inspire is implanted then he will or the rep will call for a follow up documented in this encounterKindred HospitalCwcoqbuoog38-09-8679 NoteSt. Vincent Hospital02-05-2025 History of Present illness Narrative* Trinh Ramirez APRN.SIGNAL CONSTRUCTOR - 11/12/2024 8:39 AM EST Images from the original note were not included. NAME: Kodi Rivas [facility] NO.: [id number] DATE OF SERVICE: November 12, 2024 (Rachael) [...] a few weeks - sailing out of [place]. They are driving the whole way. Updated [...] diagnosed with colitis. He was seen at [facility]. He developed blood in his stools. He [...] of Rituxan completed in October 2020 for Hadley Laura's macroglobulinemia that presents with fatigue as [...] done on 09/15/[address] Combs at [facility]. He states this [...] levels. 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 Trinh Ramirez APRN, CELL LINER-C, [facility] Hematology and Oncology Services Provided at: [place], [place] CC: Dr. Evan Eugene [address] [facility] [address] [address] Joby Mays documented in this encounterCincinnati Va Medical Center01-29-2025 Telephone encounter Note * Telephone Encounter - Bryanna Rodriguez MA - 11/05/2024 11:08 AM EST Patient coming in Sunday11/12/24 for follow up treatment. Please add lab orders. Thanks. Bryanna Rodriguez MA [facility]01-29-2025 Miscellaneous Notes* Telephone Encounter - Bryanna Rodriguez MA - 11/05/2024 11:08 AM EST Patient coming in Sunday11/12/24 for follow up treatment. Please add lab orders. Thanks. Bryanna Rodriguez MA documented in this encounterCincinnati Va Medical Center01-22-2025 History of Present illness Narrative* Joby Sol DO - 10/29/2024 1:15 PM EST HPI Patient presents today 1 month postop inspire implantation. He is doing fine. He is scheduled to beactivated in the near future. Relevant postoperative physical examination Exam shows both incisions well healed, no palpable abnormality. Assessment/plan Diagnoses and all orders for this visit: Obstructive sleep apnea (Primary) Comments: I will see the patient back as needed documented [facility] this [facility]12-16-2024 History of Present illness Narrative* Joby Sol DO - 09/22/2024 1:45 PM EST HPI Patient presents today 1 week postop [...] Postoperative instructions were given [facility]12-11-[facility] Instructions* Patient Instructions* Beverley Burleson - 09/17/2024 9:25 AM EST Rituxan #4 today RTC in 8 weeks to continue Rituxan - plan for 2 years of maintenance treatment Labs same day documented in this encounterCincinnati [facility] Center12-11-2024 History of Present illness Narrative* Joon Piper MD - 09/17/2024 9:00 AM EST Images from the original note were not included. NAME: Kodi Rivas CLINIC NO.: [id number] DATE OF SERVICE: September 17, 2024 (Veronique) Some elements in this clinic note that are critical to medical decision making have been carefully reviewed and included from a prior clinic note dated: September 10, 2024 (Jennifer) Referring Provider: Dr. Harrison Mays CC: Follow [...] a few weeks - sailing out of [place]. They are driving the whole way. Updated [...] diagnosed with colitis. He was seen at [facility]. He developed blood in his stools. He [...] of Rituxan completed in October 2020 for Hadley Laura's macroglobulinemia that presents with fatigue as [...] done on 09/15/[address] Combs at [facility]. He states this [...] levels. 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 Joon Piper MD, CPE Hematology and Oncology Services Provided at: [place], [place] Scribe Attestation: This note was scribed by Beverley Burleson on September 17, 2024 under the direction and supervisionof Dr. Joon Piper. I attest that all of the information documented is correct to the best of my knowledge. Provider Attestation: I, Joon Piper MD, attest that all information documented by the above scribe is correct, and was supervised by me and under my direction. CC: Dr. Evan Eugene [address] [facility] [address] [address] Joby Mays documented in this encounterCincinnati Va [facility] Center12-11-[address] [facility]12-04-[facility] History of Present illness Narrative* Wanda Rodriguez PA-C - 09/10/2024 9:00 AM EST Images from the original note were not included. NAME: Kodi Rivas [facility] NO.: [id number] DATE OF SERVICE: September 10, 2024 (Jennifer) Some elements in this clinic note that [...] a few weeks - sailing out of [place]. They are driving the whole way. Updated [...] 2022: Feels good and is going to [place] for his Honeymoon - got July 22, [...] diagnosed with colitis. He was seen at [facility]. He developed blood in his stools. He [...] done on 09/15/[address] Combs at [facility]. He states this [...] levels. 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 Wanda Rodriguez PA-C Hematology and Oncology Services Provided at: [place], [place] CC: Dr. Evan Eugene [address] [facility] [address] [address] Joby Mays documented in this encounterCincinnati Va Medical Center12-04-2024 NoteSt[facility]11-25-2024 Telephone encounter Note* Telephone Encounter - Trini Gusman - 09/01/2024 9:20 AM EST Patient called to cancel this week's treatment appointment. He states he tested positive for Covid yesterday. Over the weekend had cold/flu like symptoms w/ low grade fever. Offered patient if he would like to speak with Yaneth, patient declined. He states he will just keep 09/10 appt as scheduled. Trini Gusman [facility]11-25-2024 Miscellaneous Notes* Telephone Encounter - Trini Gusman - 09/01/2024 9:20 AM EST Patient called to cancel this week's treatment appointment. He states he tested positive for Covid yesterday. Over the weekend had cold/flu like symptoms w/ low grade fever. Offered patient if he would like to speak with Yaneth, patient declined. He states he will just keep 09/10 appt as scheduled. Trini Gusman documented in this encounterCincinnati Va Medical Center11-20-2024 History of Present illness Narrative* Trinh Ramirez APRN.SIGNAL CONSTRUCTOR - 08/27/2024 9:30 AM EST Images from the original note were not included. NAME: Kodi Rivas [facility] NO.: [id number] DATE OF SERVICE: Aug 27, 2024 (Rachael) [...] a few weeks - sailing out of [place]. They are driving the whole way. Updated [...] diagnosed with colitis. He was seen at [facility]. He developed blood in his stools. He [...] of Rituxan completed in October 2020 for Jeninfer Laura's macroglobulinemia that presents with fatigue as [...] done on 09/15/[address] Combs at [facility]. He states this [...] levels. 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 Evan Eugene [address] [facility] [address] [address] Joby aMys documented in this encounterCincinnati Va Medical Center11-20-2024 NoteSt[facility]10-24-2024 Instructions* Patient Instructions* Beverley Burleson - 07/31/2024 11:33 AM EDT Labs on 08/13/2024 Plan to start weekly Rituxan x4 on 08/20/2024 RTC on 08/27/2024 Please see Trinh Consider maintenance Rituxan q 8 weeks following initial 4 doses documented in this encounterCincinnati Va Medical Center10-24-2024 History of Present illness Narrative* Joon Piper MD - 07/31/2024 11:00 AM EDT Images from the original note were not included. NAME: Kodi Rivas [facility] NO.: [id number] DATE OF SERVICE: July 31, 2024 (Veronique) Some elements in this clinic note that are critical to medical decision making have been carefully reviewed and included from a prior clinic note dated: May 08, 2024 (Jennifer) Referring Provider: Dr. Harrison Mays CC: Follow [...] a few weeks - sailing out of [place]. They are driving the whole way. Updated [...] diagnosed with colitis. He was seen at [facility]. He developed blood in his stools. He [...] done on 09/15/[address] Combs at [facility]. He states this [...] levels. 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 Joon Piper MD, CPE Hematology and Oncology Services Provided at: [place], [place] Scribe Attestation: This note was scribed by Beverley Burleson on July 31, 2024 under the direction and supervision of Dr. Joon Piper. I attest that all of the information documented is correct to the best of myknowledge. Provider Attestation: I, Joon Piper MD, attest that all information documented by the above scribe is correct, and was supervised by me and under my direction. CC: Dr. Evan Eugene [address] [facility] [address] [address] Joby Mays documented in this encounterCincinnati Va Medical Center10-24-20[address] NoteSt[address] [facility]10-07-2024 History of Present illness Narrative* Joby Sol DO - 07/14/2024 1:45 PM EDT Allergies as of 07/14/2024 - Reviewed 07/01/2024 Allergen Reaction Noted Allopurinol 09/10/2013 Doxycycline 06/23/2024 Loltgzh-tynchg-lzjwg pertussis Anaphylaxis 06/07/1966 Acetaminophen 06/23/2024 Amlodipine Unknown 02/13/2024 Hydrocodone 06/23/2024 Metoclopramide 07/08/2013 Statins 06/07/2023 Tetanus toxoids 02/13/2024 Past Medical History: Diagnosis Date Anemia Anxiety Asthma ([facility]) Controlled type 2 diabetes mellitus without complication, without long-term current use of insulin ([facility]) 07/22/2013 Assessment: BG WNL Plan: continue metformin, continue to monitor CSF leak 07/27/2016 Assessment: no drainage from the right ear Plan: EVD clamped after 8:30, monitor for drainage, check manual pressure tomorrow and if ICP WNL, SA drain can be removed. Depression ([facility]) Depressive disorder ([facility]) 07/22/2013 Dysfunction of left eustachian tube 03/18/2024 Encephalocele ([facility]) 07/27/2016 Procedure(s): 1. Right middle cranial fossa approach for CSF leak repair and cauterization of encephalocele 2. Intraoperative placement of lumbar SA drain 3. Placement of split thickness bone graft with Hydroset over bone defect in temporal bone 4. Placement of Duragen inlay and pericranial flap onlay after intradural explora Essential hypertension ([facility]) 07/22/2013 Lumbago with sciatica, left side 03/18/2024 Lumbar spondylosis 03/18/2024 Neck pain on left side 07/08/2013 Osteoarthritis of knee 03/18/2024 Otorrhea 03/18/2024 Sleep apnea Type II diabetes mellitus ([facility]) Waldenstrom macroglobulinemia ([facility]) Current Outpatient Medications: albuterol HFA 90 mcg/act [...] Insecurity: No Food Insecurity (06/24/2024) Received from [facility] Hunger Screening Within the past 12 months [...] and get him scheduled. documented in this encounterKindred [id number] Miscellaneous Notes* Telephone Encounter - Ekaterina Herrera CMA - 07/01/2024 9:50 AM EDT ----- Message from Dr. Mejia Buckner MD sent at 06/30/2024 9:01 AM EDT ----- Regarding: Pathology Please let patient know pathology report showed ruptured epidermoid cyst, benign. No further follow-up needed. Thank you ----- Message ----- From: Interface - Lab Results/Orders In Sent: 06/27/2024 2:19 PM EDT To: Mejia Buckner MD documented in this encounterOhioHealth Berger Hospital09-24-2024 Telephone encounter Note* Telephone Encounter - Ekaterina Herrera CMA - 07/01/2024 9:50 AM EDT ----- Message from Dr. Mejia Buckner MD sent at 06/30/2024 9:01 AM EDT ----- Regarding: Pathology Please let patient know pathology report showed ruptured epidermoid cyst, benign. No further follow-up needed. Thank you ----- Message ----- From: Interface - Lab Results/Orders In Sent: 06/27/2024 2:19 PM EDT To: Mejia Buckner MD [facility]09-23-2024 History of Present illness Narrative* Joby Sol DO - 06/30/2024 8:45 AM EDT mmm documented in this encounterKindred [id number] History of Present illness Narrative* Mejia Buckner MD - 06/24/2024 10:00 AM EDT Images from the original note were not included. Chief Complaint: Infected epidermoid cyst History of Present Illness: Kodi Rivas is a 59 y.o. male with infected epidermoid cyst. It is located on his right chestabove his nipple. He 1st noticed redness, pain, swelling and tenderness a few weeks ago. He saw hishematologist, prescribed him doxycycline and referred him to [...] History: Diagnosis Date Acid reflux Depression Diabetes ([facility]) Elevated blood protein HTN (hypertension) Hyperlipidemia Multiple myeloma ([facility]) Sleep apnea Waldenstrom macroglobulinemia ([facility]) Past Surgical History: Procedure Laterality Date BRAIN SURGERY 2016 [facility] COLONOSCOPY COLONOSCOPY DIAGNOSTIC / SCREENING N/A 01/28/2024 Performed by Lazara Dumas DO at [facility] ESOPHAGOGASTRODUODENOSCOPY ESOPHAGOGASTRODUODENOSCOPY DIAGNOSTIC N/A 01/28/2024 Performed by Lazara Dumas DO at [facility] HERNIA REPAIR Right 2020 BI-LATERAL INGUINAL- DR GARRET ALSTON RIGHT SIDE LAST ROTATOR CUFF REPAIR Right [...] mg total) by mouth respiratory nightly., Disp: ,Rfl: benazepriL (LOTENSIN) 40 MG tablet, Take 1 tablet (40 mg total) by mouth respiratory nightly., Disp: , Rfl: budesonide (PULMICORT) 0.25 mg/2 mL nebulizer solution, Inhale 2 mL (0.25 mg total) by nebulizationonce daily., Disp: , Rfl: budesonide-formoteroL (SYMBICORT) 160-4.5 mcg/actuation inhaler, Inhale 2 puffs in the morning and 2 puffs before bedtime., Disp: , Rfl: gabapentin (NEURONTIN) 100 mg capsule, Take 1 capsule (100 mg total) by mouth as needed., Disp: , Rfl: metFORMIN (GLUCOPHAGE) 500 mg tablet, Take 1 tablet (500 mg total) by mouth respiratory nightly., Disp: , Rfl: xfdolfztseqa-Jl-lqdw-minerals tablet, Take 1 tablet by mouth respiratory [...] patient/family/caregiver Referring and communicating with other health medical care administrator Mejia Buckner MD [facility] [place] documented in this encounterOhioHealth Berger Hospital08-09-2024 Miscellaneous Notes* Telephone Encounter - GOPAL Johnson - 05/16/2024 1:46 PM EDT ----- Message from Dr. Mejia Buckner MD sent at 05/16/2024 1:05 PM EDT ----- Regarding: RE: Vomiting from Doxycycline He can stop it, does not need another one ----- Message ----- From: Ekaterina Herrera CMA Sent: 05/16/2024 11:50 AM EDT To: Mejia Buckner MD; GOPAL Johnson Subject: Vomiting from Doxycycline Dino, I received a call from patient's spouse stating he has been vomiting while taking doxycycline. Patient would like you to prescribe him another antibiotic. Does he need to be on another antibiotic? Please respond to Erna as I will be out of the office for the rest of the day. Please advise. Thank you, ekaterina * Telephone Encounter - GOPAL Johnson - 05/16/2024 1:46 PM EDT Called patient to inform him of Dr. Buckner's recommendations. Unable to make contact with patient, left voicemail message stating Dr. Buckner's recommendations and to call the office back if he had any questions. documented in this encounterOhioHealth Berger Hospital08-09-2024 Telephone encounter Note* Telephone Encounter - Erna GOPAL Sullivan - 05/16/2024 1:46 PM EDT ----- Message from Dr. Mejia Buckner MD sent at 05/16/2024 1:05 PM EDT ----- Regarding: RE: Vomiting from Doxycycline He can stop it, does not need another one ----- Message ----- From: Ekaterina Herrera CMA Sent: 05/16/2024 11:50 AM EDT To: Mejia Buckner MD; GOPAL Johnson Subject: Vomiting from Doxycycline Hello, I received a call from patient's spouse stating he has been vomiting while taking doxycycline. Patient would like you to prescribe him another antibiotic. Does he need to be on another antibiotic? Please respond to Erna as I will be out of the office for the rest of the day. Please advise. Thank you, ekaterina [facility]08-09-2024 Telephone encounter Note* Telephone Encounter - GOPAL Johnson - 05/16/2024 1:46 PM EDT Called patient to inform him of Dr. Buckner's recommendations. Unable to make contact with patient, left voicemail message stating Dr. Buckner's recommendations and to call the office back if he had any questions. [facility]08-07-2024 Telephone encounter Note* Telephone Encounter - Мария Caruso - 05/14/2024 8:[address] Dumas office. Patient was seen at their office yesterday 05/[address] Buckner and has follow up scheduled with him on 06/24. Their office will be faxing over Dr Buckner office note from patients 05/13 visit to our office sometime today. Мария Khan [facility]08-07-2024 Miscellaneous Notes* Telephone Encounter - Мария Caruso - 05/14/2024 8:[address] Dumas office. Patient was seen at their office yesterday 05/[address] Buckner and has follow up scheduled with him on 06/24. Their office will be faxing over Dr Buckner office note from patients 05/13 visit to our office sometime today. Мария Khan * Telephone Encounter - Jane Kilgore - 05/08/2024 3:31 PM EDT Records faxed to Dr. Dumas. * Telephone Encounter - Мария Caruso - 05/08/2024 3:15 PM EDT Jocelin: Information ready for you. Мария Khan * Telephone Encounter - Sunitha Arauz - 05/08/2024 11:37 AM EDT Please refer patient to [facility]. They should call the patient to schedule after review of records. Thank you Joeclin, Please fax records Jorge Luis, Please follow up on this appt. documented in this encounterCincinnati Va Medical Center08-06-2024 History of Present illness Narrative* Mejia Buckner MD - 05/13/2024 2:15 PM EDT Images from the original note were not included. Chief Complaint: Infected epidermoid cyst History of Present Illness: Kodi Rivas is a 59 y.o. male with infected epidermoid cyst. It is located on his right chestabove his nipple. He 1st noticed redness, pain, swelling and tenderness a few weeks ago. He saw hishematologist, prescribed him doxycycline and referred him to [...] History: Diagnosis Date Acid reflux Depression Diabetes ([facility]) Elevated blood protein HTN (hypertension) Hyperlipidemia Multiple myeloma ([facility]) Sleep apnea Waldenstrom macroglobulinemia ([facility]) Past Surgical History: Procedure Laterality Date BRAIN SURGERY 2016 [facility] COLONOSCOPY COLONOSCOPY DIAGNOSTIC / SCREENING N/A 01/28/2024 Performed by Lazara Dmuas DO at [facility] ESOPHAGOGASTRODUODENOSCOPY ESOPHAGOGASTRODUODENOSCOPY DIAGNOSTIC N/A 01/28/2024 Performed by Lazara Dumas DO at [facility] HERNIA REPAIR Right 2020 BI-LATERAL INGUINAL- DR COMBS DID RIGHT SIDE LAST ROTATOR CUFF REPAIR Right UMBILICAL HERNIA REPAIR Allergies Allergen Reactions Tetanus And Diphtheria Toxoids Anaphylaxis Atorvastatin muscle cramps EXPERIENCES FATIGUE WELL Metoclopramide Other reaction(s): Mental Status Change Current Outpatient Medications: amLODIPine (NORVASC) 5 mg tablet, Take 1 tablet (5 mg total) by mouth respiratory nightly., Disp: ,Rfl: ASMANEX TWISTHALER 110 mcg/ actuation (30) inhaler, Inhale 1 puff once daily., Disp: , Rfl: benazepriL (LOTENSIN) 40 MG tablet, Take 1 tablet (40 mg total) by mouth respiratory nightly., Disp: , Rfl: budesonide (PULMICORT) 0.25 mg/2 mL nebulizer solution, Inhale 2 mL (0.25 mg total) by nebulizationonce daily., Disp: , Rfl: doxycycline (VIBRA-TABS) 100 [...] by mouth respiratory nightly., Disp: , Rfl: pgrjxwtdsami-Iu-vmzo-minerals tablet, Take 1 tablet by mouth respiratory [...] patient/family/caregiver Referring and communicating with other health medical care administrator Mejia Buckner MD [facility] [place] documented in this encounterOhioHealth Berger Hospital08-01-2024 Telephone encounter Note* Telephone Encounter - Jane Kilgore - 05/08/2024 3:31 PM EDT Records faxed to Dr. Dumas. [facility]08-01-2024 Telephone encounter Note* Telephone Encounter - Мария Caruso - 05/08/2024 3:15 PM EDT Jocelin: Information ready for you. Мария Khan [facility]08-01-2024 Telephone encounter Note* Telephone Encounter - Sunitha Arauz - 05/08/2024 11:37 AM EDT Please refer patient to [facility]os[facility]. They should call the patient to schedule after review of records. Thank you Jocelin, Please fax records Jorge Luis, Please follow up on this appt. [facility]08-01-2024 History of Present illness Narrative* Wanda Rodriguez PA-C - 05/08/2024 11:00 AM EDT Images from the original note were not included. NAME: Kodi Rivas [facility] NO.: [id number] DATE OF SERVICE: May 08, 2024 (Jennifer) (Elements copied from Dr. Piper's note dated January 17, 2024, have been reviewed and updated where appropriate, and all reflect current assessment and medical decision making during today's encounter, May 08, 2024) Referring Provider: Dr. Harrison Mays CC: Follow [...] a few weeks - sailing out of [place]. They are driving the whole way. Updated [...] diagnosed with colitis. He was seen at [facility]. He developed blood in his stools. He [...] of Rituxan completed in October 2020 for Hadley Laura's macroglobulinemia that presents with fatigue as [...] done on 09/15/[address] Combs at [facility]. He states this [...] levels. 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 [...] Resp 18 Ht 5' 8.937 (1.75m) Wt 176lb 9.4 oz (80.1kg) SpO2 98% BMI 26.13 [...] long- term current use of insulin (HCC) (D49.9, G13.0) [...] Father Stroke Mother Multiple Sclerosis Sister Wanda Rupali Rodriguez PA-C Hematology and Oncology Services Provided at: [facility], [place], [place] I spent a total of 31 minutes on the date of the service which included preparing to see the patient, kujv-ac-ssrw patient care, completing clinical documentation, performing a medically appropriate examination, counseling and educating the patient/family/caregiver, ordering medications, tests, or p rocedures, independently interpreting results (not separately reported), communicating results to the patient/family/caregiver, and care coordination (not separately reported). CC: Dr. Evan Eugene [address] [facility] [address] Dr[address] Joby Mays documented in this encounterCincinnati Va Medical Center08-01-2024 NoteSt. [facility] Hospital04-25-2024 Miscellaneous Notes* Telephone Encounter - Ekaterina Herrera CMA - 01/31/2024 11:16 AM EDT ----- Message from Lazara Dumas DO sent at 01/30/2024 2:59 PM EDT [...] in [address] Carl * Telephone Encounter - Ekaterina Herrera CMA - 01/31/2024 11:16 AM EDT Spoke with patient regarding pathology results. Patient verbally understood with no further questions. Recall will be put in chart. documented in this encounterOhioHealth Berger Hospital04-25-2024 Telephone encounter Note* Telephone Encounter - Ekaterina Herrera CMA - 01/31/2024 11:16 AM EDT ----- Message from Lazara Dumas DO sent at 01/30/2024 2:59 PM EDT [...] surveillance colonoscopy in 5 years unless problems. ThanksDr. [facility]04-25-20[facility] Telephone encounter Note* Telephone Encounter - Ekaterina Herrera CMA - 01/31/2024 11:16 AM EDT Spoke with patient regarding pathology results. Patient verbally understood with no further questions. Recall will be put in chart. [facility]04-24-2024 History of Present illness Narrative* Lazara Dumas DO - 01/30/2024 2:58 PM EDT . documented in this encounterOhioHealth Berger Hospital04-16-2024 Miscellaneous Notes* Perioperative Nursing Note - Zofia Huffman RN - 01/22/2024 2:30 PM EDT Preoperative Education Checklist- General Surgery date: 01/28/24 Surgery time: 1045 Arrival time: 0845 1. Bring a photo ID and your insurance card with you the day of surgery. You will check in at the main lobby of the [facility]- registration desk is straight ahead as soon as you walk in. Tell them you are here for surgery. 2. If you have a Living Will/Durable Power of Engraver Picture for Health Care that is not on [...] after you have bathed. 5. NO nail northern irish/acrylic on at least one finger. If you are having a hand, wrist or foot surgery then all nail northern irish and artificial/acrylic nails must be removed from [...] WITH YOU ANY DEVICES YOU MAY NEED: JAVY hose, ice machine, sling/swath, brace or special [...] least 8 hours and marijuana for 24 hoursprior to arrival for your surgery. 16. If [...] please call the Preadmission Testing office at [phone], Mon.-Fri. 7 a.m.-3 p.m. Leave a voicemail [...] Stop taking 0 days prior to procedure wnxqafhcjonx-Ki-qapd-minerals tablet Stop taking 0 days prior to procedure omeprazole (PriLOSEC) 20 mg capsule Stop taking 0 days prior to procedure sertraline (ZOLOFT) 100 mg tablet Stop taking 0 days prior to procedure sod sulf-pot chloride-mag sulf 1.479-0.188- 0.225 gram tablet Stop taking 0 days prior to procedure documented in this encounterOhio[facility]04-16-2024 Nurse Note* Perioperative Nursing Note - Zofia Huffman RN - 01/22/2024 2:30 PM EDT Preoperative Education Checklist- General Surgery date: 01/28/24 Surgery time: 1045 Arrival time: 0845 1. Bring a photo ID and your insurance card with you the day of surgery. You will check in at the main lobby of the [facility]- registration desk is straight ahead as soon as you walk in. Tell them you are here for surgery. 2. If you have a Living Will/Durable Power of Engraver Picture for Health Care that is not on [...] after you have bathed. 5. NO nail northern irish/acrylic on at least one finger. If you are having a hand, wrist or foot surgery then all nail northern irish and artificial/acrylic nails must be removed from [...] WITH YOU ANY DEVICES YOU MAY NEED: JAVY hose, ice machine, sling/swath, brace or special [...] least 8 hours and marijuana for 24 hoursprior to arrival for your surgery. 16. If [...] please call the Preadmission Testing office at [phone], Mon.-Fri. 7 a.m.-3 p.m. Leave a voicemail [...] Stop taking 0 days prior to procedure zaiilppkcmba-Ni-ykxu-minerals tablet Stop taking 0 days prior to procedure omeprazole (PriLOSEC) 20 mg capsule Stop taking 0 days prior to procedure sertraline (ZOLOFT) 100 mg tablet Stop taking 0 days prior to procedure sod sulf-pot chloride-mag sulf 1.479-0.188- 0.225 gram tablet Stop taking 0 days prior to procedure [facility]04-16-2024 Miscellaneous Notes* Telephone Encounter - Flaca Siu RN - 01/22/2024 11:23 AM EDT TC to patient. Explained that we received a referral for him to be seen by our Palliative Medicine service. Explained our role in managing symptoms related to severe or life limiting illness's and that we provide ongoing support to try and reduce hospitalizations. Patient says his last 3 blood workwere good and right now does not feel this is needed. Provided our contact number to schedule at a l ater time if anything changes or symptom burden increases. Flaca Siu RN January 22, 2024 11:27 AM * Telephone Encounter - Marissa Jade RN - 01/22/2024 10:45 AM EDT Palliative Medicine Referral Assessment Referral Accepted: Yes, Location: [place]. Patient current location: Home: Timeframe for schedulin-3 weeks Pall Med appropriate diagnosis: Waldenstrom macroglobulinemia Established with Inpatient Pall Med team: no Reason for consult: MMO insurane referral for [place], sees [facility]. Routed to Book Sewing Machine Operator, Flaca Siu to contact patient to explain pall med program and offer scheduling at [place], if patient accepts. Thank you. Marissa Jade RN January 22, 2024 documented in this encounterCincinnati [facility]04-11-2024 Instructions* Patient Instructions* Beverley Ferrari - 01/17/2024 11:04 AM EDT Labs in 11 weeks RTC in 12 weeks Continue low dose Neurontin at night, as needed Will consider additional Rituxan following that visit based on symptoms documented in this encounterCincinnati [facility] Center04-11-2024 History of Present illness Narrative* Joon Piper MD - 01/17/2024 10:30 AM EDT Images from the original note were not included. NAME: Kodi Rivas [facility] NO.: [id number] DATE OF SERVICE: January 17, 2024 (Veronique) [...] a few weeks - sailing out of [place]. They are driving the whole way. Updated [...] in symptoms. Updated Visit, April 18, 2023: Koid Rivas returns for follow-up and to begin [...] diagnosed with colitis. He was seen at [facility]. He developed blood in his stools. He [...] of Rituxan completed in October 2020 for Hadley Laura's macroglobulinemia that presents with fatigue as [...] done on 09/15/[address] Combs at [facility]. He states this [...] levels. 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 Joon Piper MD, CPE Hematology and Oncology Services Provided at: [facility], [place], [place] Scribe Attestation: This note was scribed by Beverley Ferrari on January 17, 2024 under the direction and supervision ofDr. Joon Piper. I attest that all of the information documented is correct to the best of my knowledge. Provider Attestation: I, Joon Piper MD, attest that all information documented by the above scribe is correct, and was supervised by me and under my direction. CC: Dr. Evan Eugene [address] [facility] [address] [address] Joby Mays documented in this encounterCincinnati [facility] Center04-09-2024 Miscellaneous Notes* Telephone Encounter - Argentina Fermin - 01/15/2024 9:41 AM EDT Taken off schedule * Telephone Encounter - Joon Piper MD - 01/15/2024 9:24 AM EDT Ok thanks - will add orders that day if indicated and will schedule appropriately. * Telephone Encounter - Alice Montelongo RN - 01/11/2024 9:22 AM EDT Kodi is scheduled 01/16 for OV and possibly resuming Rituxan. You will need to put orders in for ins PA, otherwise we will not be able to give tx that day if he ends up needing it. Thank you, Alice Montelongo, LENNY documented in this encounterCincinnati Va Medical Center04-02-2024 History of Present illness Narrative* Olamideflaca Velasquez, REGISTERED REPRESENTATIVE-SIGNAL CONSTRUCTOR - 01/08/2024 9:30 AM EDT Images from the original note were not included. Chief Complaint: History of colon polyps, GERD History of Present Illness Kodi Rivas is a 58 y.o. male who presents to the office for surveillance colonoscopy. His last colonoscopy was in 2017 at [facility], significant for tubular adenoma. He denies any concerns or changes in his bowels. He did have an episode of colitis in January 2022. He denies any rectal bleeding. He also reports GERD. He has been taking famotidine daily and sometimes Prilosec. He still has episodes of heartburn a few times weekly. He denies any nausea, vomiting or abdominal pain. He is unableto drink acidic drinks such as orange juice. [...] History: Diagnosis Date Acid reflux Depression Diabetes ([facility]) Elevated blood protein HTN (hypertension) Hyperlipidemia Multiple myeloma ([facility]) Sleep apnea Waldenstrom macroglobulinemia ([facility]) Past Surgical History: Procedure Laterality Date BRAIN SURGERY 2016 [facility] COLONOSCOPY ESOPHAGOGASTRODUODENOSCOPY HERNIA REPAIR Right 2019 BI-LATERAL [...] Inhale 2 mL (0.25 mg total) by nebulizationonce daily., Disp: , Rfl: gabapentin (NEURONTIN) 100 mg capsule, Take 1 capsule (100 mg total) by mouth as needed., Disp: , Rfl: metFORMIN (GLUCOPHAGE) 500 mg tablet, Take 1 tablet (500 mg total) by mouth daily with breakfast., Disp: , Rfl: jpwzblnjqljz-Vv-wozg-minerals tablet, Take 1 tablet by mouth in the morning., Disp: , Rfl: omeprazole (PriLOSEC) 20 mg capsule, Take 1 capsule (20 mg total) by mouth as needed., Disp: , Rfl: sertraline (ZOLOFT) 100 mg tablet, Take 2 tablets (200 mg total) by mouth in the morning., Disp: , Rfl: sod sulf-pot chloride-mag sulf 1.479-0.188- 0.225 gram tablet, Please see instructional sheet givenby physicians office., Disp: 24 tablet, Rfl: 0 [...] patient/family/caregiver Referring and communicating with other health medical care administrator Encounter for colonoscopy due to history of colonic polyp [Z12.11, Z86.010] TRISHA GEIGER [facility] [place] This note was created with the assistance of a speech recognition program. While intending to generate a timely document that accurately reflects the content of the visit, no guarantee can be provided that every grammatical or spelling mistake has been or will be identified or corrected. Thank you for your understanding. TRISHA Geiger 01/08/24 1016 documented in this encounterOhioHealth Berger Hospital01-03-2024 Evaluation note* Encounter Date Diagnosis Assessment Notes Treatment Notes Treatment Clinical Notes Oct, Acute recurrent maxillary sinusi tis (ICD-10 - J01.01) Sinus infections can be triggered by a secondary infection from a viral URI or even seasonal allergies. Take medications as directed. Use saline nasal spray prior to presciption nasal spray. Take medications as directed, and complete all doses of medication even if you start to feel better. Patientadvised to follow up with PCP if symptoms persist or worsen. Patient verbalized understanding and agreement with treatment plan. Oct,Waldenstrom macroglobulinemia (ICD-10 - C88.0)[facility]. Advise getting flu and covid immunizations after he fi nished his antibiotic and prior to his cruise next month. Discussed immunosuppression with treatment plan. [facility] Other [id number] Instructions* Patient Instructions* Joon Piper MD - 08/02/2023 11:32 AM EDT Labs in 11 weeks RTC in 12 weeks Continue low dose Neurontin at night Consider additional Rituxan at that time. documented in this encounterCincinnati [facility] Center10-26-2023 History of Present illness Narrative* Joon Piper MD - 08/02/2023 11:29 AM EDT Images from the original note were not included. NAME: Kodi Rivas [facility] NO.: [id number] DATE OF SERVICE: August 02, 2023 (Veronique) [...] diagnosed with colitis. He was seen at [facility]. He developed blood in his stools. He [...] done on 09/15/[address] Combs at [facility]. He states this [...] levels. 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 Joon Piper MD, CPE Hematology and Oncology Services Provided at: [place], [place] CC: Dr. Evan Eugene [address] [facility] [address] [address] Joby Mays documented in this encounterCincinnati Va Medical Center10-17-2023 Miscellaneous Notes* Telephone Encounter - Kaleb Leigh - 07/24/2023 3:53 PM EDT Shannan paperwork completed and faxed @ [phone]. Leigh Manuel documented in this encounterCincinnati Va [facility] Center09-14-2023 Evaluation note* Encounter Date Diagnosis Assessment Notes Treatment Notes Treatment Clinical Notes Jun, Frequency of micturition (ICD-10 - R35.0) Jun,enign prostatic hyperplasia with lower urinary tract symptoms (ICD- 10 - N40.1) [facility] Other 08-30-2023 Evaluation note* Encounter Date Diagnosis Assessment Notes Treatment Notes Treatment Clinical Notes May, Wellness examination (ICD-10 - Z 00.00) Healthy diet and exercise. Reviewed age-appropriate preventive testing recommended. May,rimary hypertension (ICD-10 - I10)This patient is instructed to consume a healthy, low-fat, low-salt diet. They are also encouraged to continue exercise to achieve/maintain a normal BMI. May,Elevated cholesterol (ICD-10 - E78.00)Instructed on diet and exercise with continued statin therapy.Discussed the beneficial effects of lo wering cholesterol in reducing the risk for cerebrovascular and cardiovascular disease. May,Type 2 diabetes mellitus with hyperglycemia, without long-term current use of insulin (ICD-10 - E11.65)This patient is following a comprehensive diabetic treatment [...] Microalbumin, Dilated eye exam and Foot exam May,igarette nicotine dependence without complication (ICD-10 - F17.210)This patient has been encouraged to quit tobacco use immediately. They are aware of the hazards associated with tobacco use, including but not limited to respiratory infections, vascular disease and cancers. May,Waldenstrom's macroglobulinemia (ICD-10 - C88.0)Appears to be active but per patient controlled. Continue f/u with [facility]. Reviewed immunizations - update Pneumococcal status - recommend Shingrix and Covid booster May,astroesophageal reflux disease with esophagitis without hemorrhage (ICD-10 - K21.00)Diet instructions: Smaller portions, avoid eating and laying flat, avoid eating or drinking prior to bedtime. Weight loss. May,Recurrent major depressive disorder, in full remission (ICD-10 - F33.42)Stable w/ treatment. Healthy diet, exercise and keep active May,Frequency of micturition (ICD-10 - R35.0) May,enign prostatic hyperplasia with lower urinary tract symptoms (ICD- 10 - N40.1)Symptoms worsening - r/o glucosuria - r/o infection - r/o prostatitis Push fluids, avoid sweets and stimulants Discussed FLomax and referral to if needed May,Left hip pain (ICD-10 - M25.552)No provoking activity or injury. Discussed ROM exercises, ice/heat and Voltaren Gel DIscussed PT vs referral to Orthopedics Recommended XR May,High risk medication use (ICD-10 - Z79.899)Checking labs May,Screening PSA (prostate specific antigen) (ICD-10 - Z12.5)Yearly PSA and ARVIN May,Screening for colon cancer (ICD-10 - Z12.11)Patient declined testing at this time. He denies changes in appetite, weight or bowel habits He denies heartburn, dysphagia, melena or hematochezia [facility] Other 08-23-2023 Miscellaneous Notes* Telephone Encounter - Leigh Manuel - 05/30/2023 2:59 PM EDT Paperwork faxed to SHANNAN @ [phone]. Leigh Manuel * Telephone Encounter - Leigh Manuel - 05/29/2023 11:28 AM EDT Disability Claim form has been completed and placed in folder to be signed. Leigh Manuel documented in this encounterCincinnati [facility] Center08-21-2023 Instructions* Patient Instructions* Joon Piper MD - 05/28/2023 2:26 PM EDT Labs in 11 weeks RTC in 12 weeks Continue low dose Neurontin at night documented in this encounterCincinnati Va Medical Center08-21-2023 History of Present illness Narrative* Joon Piper MD - 05/28/2023 2:00 PM EDT Images from the original note were not included. NAME: Kodi Rivas CLINIC NO.: [id number] DATE OF SERVICE: May 28, 2023 (Veronique) [...] diagnosed with colitis. He was seen at [facility]. He developed blood in his stools. He [...] isdoing well. He got engaged just before [place] 2021. Updated Visit, August 11, 2021: Kodi [...] of Rituxan completed in October 2020 for Hadley Laura's macroglobulinemia that presents with fatigue as [...] done on 09/15/[address] Combs at [facility]. He states this [...] levels. 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 Joon Piper MD, CPE Hematology and Oncology Services Provided at: [place], [place] CC: Dr. Evan Eugene [address] [facility] [address] [address] Joby Mays documented in this encounterCincinnati Va Medical Center08-21-2023 Nurse Note* Anita Conde MA - 05/28/2023 1:57 PM EDT Patient states his fingertips have no feeling in them. Anita Monsalve MA documented in this encounterCincinnati Va Medical Center07-19-2023 Instructions* Patient Instructions* Joon Piper MD - 04/25/2023 10:00 AM EDT Continue Rituxan weekly x 4 RTC in 4 weeks Start low dose Neurontin at night Labs on Return. documented in this encounterCincinnati Va Medical Center07-19-2023 History of Present illness Narrative* Joon Piper MD - 04/25/2023 9:30 AM EDT Images from the original note were not included. NAME: Kodi Rivas [facility] NO.: [id number] DATE OF SERVICE: April 25, 2023 (Veronique) [...] diagnosed with colitis. He was seen at [facility]. He developed blood in his stools. He [...] isdoing well. He got engaged just before [place] 2021. Updated Visit, August 11, 2021: Kodi [...] done on 09/15/[address] Combs at [facility]. He states this [...] levels. 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 Joon Piper MD, CPE Hematology and Oncology Services Provided at: [place], [place] CC: Dr. Evan Eugene [address] [facility] [address] Dr[address] Joby Mays documented in this encounterCincinnati Va Medical Center07-18-2023 Miscellaneous Notes* Telephone Encounter - Leigh Manuel - 04/24/2023 1:02 PM EDT Faxed paperwork to [employer] @[phone]. Leigh Manuel * Telephone Encounter - Leigh Manuel - 04/20/2023 3:28 PM EDT Disability paperwork completed and placed in folder to be signed. Leigh Manuel documented in this encounterCincinnati Va Medical Center07-17-2023 Miscellaneous Notes* Telephone Encounter - Diana Leong [...] protocol. Diana Leong RN documented in this encounterCincinnati Va Medical Center07-12-2023 Miscellaneous Notes* [facility] - 04/18/2023 4:25 PM EDT 1st report [...] just like he was on before with [employer] and with his permission I could go ahead and enroll him in this to help with his OOP expenses. He was very appreciative of this and permission was given. Estimate Reference #[id number]. Cost facit survey completed. Was able to enroll Kodi into the program with [employer]. ID# [id number] $20,000 ramy I mailed him this info along with my contact information. documented in this encounterCincinnati Va Medical Center07-12-2023 History of Present illness Narrative* Evan Bermudez RN - 04/18/2023 4:10 PM EDT 1200-patient c/o itching in mouth and ears as well as nasal congestion. VSS. Stopped infusion. Started IVF. Zeynep Burton NP notified. No further intervention at this time. 1215 restarted infusion after symptoms resolved per CELL LINER. Decreased rate of infusion back to 50mg/hr.No further action needed. 1545 Patient completed without any additional problems. VSS. Evan Bermudez RN documented in this encounterCincinnati Va Medical Center07-12-2023 History of Present illness Narrative* Zeynep Burton APRN.SIGNAL CONSTRUCTOR - 04/18/2023 9:00 AM EDT Images from the original note were not included. NAME: Kodi Rivas [facility] NO.: [id number] DATE OF SERVICE: April 18, 2023 (Micheal) [...] diagnosed with colitis. He was seen at [facility]. He developed blood in his stools. He [...] of Rituxan completed in October 2020 for Hadley Laura's macroglobulinemia that presents with fatigue as [...] done on 09/15/[address] Combs at [facility]. He states this [...] levels. 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 Evan Eugene [address] [facility] [address] [facility] [address] Dr. Joby Mays I spent a total of 30 minutes on the date of the service which included preparing to see the patient, ktgd-fo-oqyh patient care, completing clinical documentation, obtaining and/or reviewing separately obtained history, performing a medically appropriate examination, counseling and educating the pat ient/family/caregiver, ordering medications, tests, or procedures, independently interpreting results (not separately reported), and communicating results to the patient/family/caregiver. documented in this encounterCincinnati Va Medical Center07-03-2023 Miscellaneous Notes* Telephone Encounter - Cheyenne Thompsons - 04/09/2023 4:04 PM EDT FMLA PAPERWORK SIGNED. Called patient and left a message that paperwork is ready to be picked up. Also stated that we are closed on April 10. Paperwork copied and placed in scanning. Cheyenne Leon * Telephone Encounter - Leigh Manuel - 03/28/2023 3:19 PM EDT Disability paperwork completed and placed in folder to be signed. Leigh Kaleb documented in this encounterCincinnati Va Medical Center06-15-2023 History of Present illness Narrative* SIDNEY Whittaker [...] application. Patient also has access to his group home funds since he is 58 1/2 years old. SW encouraged Patient toreach out to this SW with any additional needs, questions or concerns. SW will remain available andwill follow up as appropriate. JF Whittaker documented in this encounterCincinnati Va Medical Center06-15-2023 History of Present illness Narrative* Diana Leong [...] but pt not interested at this time. 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 Diana Leong RN documented in this encounterCincinnati Va Medical Center06-02-2023 Miscellaneous Notes* Telephone Encounter - Trini Gusman [...] appointment. Ok to schedule with you sooner? Thanks Kelly documented in this [facility]05-05-2023 Instructions* Patient Instructions* Joon Piper MD - 02/09/2023 9:12 AM EDT Repeat Myeloma studies in 3 months, 1 week before follow up appointment. Follow up 1 week after labs. documented in this encounterCincinnati Va Medical Center05-05-2023 History of Present illness Narrative* Joon Piper MD - 02/09/2023 8:57 AM EDT Images from the original note were not included. NAME: Kodi Rivas CLINIC NO.: [id number] DATE OF SERVICE: February 09, 2023 (Veronique) [...] diagnosed with colitis. He was seen at [facility]. He developed blood in his stools. He [...] of Rituxan completed in October 2020 for Hadley Laura's macroglobulinemia that presents with fatigue as [...] done on 09/15/[address] Combs at [facility]. He states this [...] levels. 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 Joon Piper MD, CPE Hematology and Oncology Services Provided at: [place], [place] CC: Dr. Evan Eugene [address] [facility] [address] [address] Joby Mays documented in this encounterC[facility]innati [facility]04-24-2023 Miscellaneous Notes* Telephone Encounter - Michael January - 04/30/2023 10:16 AM EDT Patient called requesting that his [employer] paperwork be refax to [phone] they told him they never receive it. Also, patient requested a copy of the paperwork. Paperwork faxed with success. Bryanna Rodriguez MA documented in this encounterCincinnati Va [facility] Center02-28-2023 Evaluation note* Encounter Date Diagnosis Assessment Notes Treatment Notes Treatment Clinical Notes Nov, Acute bronchitis due to other sp ecified organisms (ICD-10 - J20.8) Instructed to use Robitussin or Mucinex for cough, saline or Flonase NS for congestion, Tylenol forpain and fever. Nov,Waldenstrom macroglobulinemia (ICD-10 - C88.0)Stable, f/u Hematology [facility] [employer] Other 02-03-2023 History of Present illness Narrative* Zeynep Burton APRN.[facility] - 11/10/2022 9:26 AM EST Images from the original note were not included. NAME: Kodi Rivas CLINIC NO.: [id number] DATE OF SERVICE: November 10, 2022 (Micheal) [...] diagnosed with colitis. He was seen at [facility]. He developed blood in his stools. He [...] done on 09/15/[address] Combs at [facility]. He states this [...] levels. 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 Evan Eugene [address] [facility] [address] Dr. Joby Mays I spent a total of 30 minutes on the date of the service which included preparing to see the patient, [id number] patient care, completing clinical documentation, obtaining and/or reviewing separately obtained history, performing a medically appropriate examination, counseling and educating the pat ient/family/caregiver, ordering medications, tests, or procedures, independently interpreting results (not separately reported), and communicating results to the patient/family/caregiver. documented in this encounterCincinnati [facility] Center11-04-2022 Instructions* Patient Instructions* Joon Piper MD - 08/11/2022 9:54 AM EDT Repeat Myeloma studies in 3 months, 1 week before follow up appointment. RTC 1 week after labs. documented in this encounterCincinnati [facility] Center11-04-2022 History of Present illness Narrative* Joon Piper MD - 08/11/2022 9:48 AM EDT Images from the original note were not included. NAME: Kodi Rivas [facility] NO.: [id number] DATE OF SERVICE: August 11, 2022 (Veronique) Some elements in this clinic note [...] diagnosed with colitis. He was seen at [facility]. He developed blood in his stools. He [...] of Rituxan completed in October 2020 for Hadley Laura's macroglobulinemia that presents with fatigue as [...] done on 09/15/[address] Combs at [facility]. He states this [...] levels. 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 [...] quittin.4 Smokeless tobacco: Never Tobacco comments: quit 2018 Vaping Use Vaping Use: Former Substance Use Topics Alcohol use: Not Currently Drug use: Not Currently FAMILY HISTORY Problem Relation Age of Onset Diabetes Mother living other (heart disease [Other]) Father Stroke Mother Multiple Sclerosis Sister I spent a total of 30 minutes on the date of the service which included preparing to see the patient, [id number] patient care, completing clinical documentation, performing a medically appropriate examination, counseling and educating the patient/family/caregiver, and ordering medications, tests,or procedures. Joon Piper MD, CPE Hematology [facility] Oncology [facility] [place] CC: Dr. Evan Eugene [address] [facility] [address] [address] Joby Mays documented in this encounterCincinnati Va [facility] Center09-22-2022 NotePROCEDURE: XR KNEE LT 3V HISTORY: Pain of left knee joint ; medial knee pain for one year, no known injury COMPARISON: None. FINDINGS: BONES:No fracture, acute abnormality, or significant arthropathy. SOFT TISSUES:No visible soft tissue swelling. EFFUSION:None visible. OTHER: Negative. IMPRESSION: 1. Normal examination. Electronically authenticated by: MENDY BIRMINGHAM Date: 2022-06-29 08:28[facility]08-05-2022 Instructions* Patient Instructions* Joon Piper MD - 05/12/2022 9:43 AM EDT - Labs/Path: 1. Repeat Myeloma studies in 3 months, 1 week before follow up appointment. - Return/Referrals: 1. RTC 1 week after labs. documented in this [facility]08-05-2022 Nurse Note* Anita Monsalve MA - 05/12/2022 9:05 AM EDT Patient was Covid Positive April 23 now negative. He states he has been more fatigued even prior to Covid diagnosis. Anita Monsalve MA documented in this [facility]08-05-2022 History of Present illness Narrative* Joon Piper MD - 05/12/2022 9:00 AM EDT NAME: Kodi Rivas CLINIC NO.: [id number] DATE OF SERVICE: May 12, 2022 Some [...] diagnosed with colitis. He was seen at [facility]. He developed blood in his stools. He [...] done on 09/15/[address] Combs at [facility]. He states this [...] levels. 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 [...] Smokeless tobacco: Never Used Tobacco comment: quit 2017 Vaping Use Vaping Use: Former Substance Use Topics Alcohol use: Not Currently Drug use: Not Currently FAMILY HISTORY Problem Relation Age of Onset Diabetes Mother living other (heart disease [Other]) Father Stroke Mother Multiple Sclerosis Sister I spent a total of 30 minutes on the date of the service which included preparing to see the patient, [id number] patient care, completing clinical documentation, performing a medically appropriate examination, counseling and educating the patient/family/caregiver, and ordering medications, tests,or procedures. Joon Piper MD, CPE Hematology and Oncology Services Provided at: [place], [place] CC: Dr. Evan Eugene [address] [facility] [address] Dr. Joby Mays documented in this encounterCincinnati [facility] Center07-06-2022 Miscellaneous Notes* Telephone Encounter - Juliane Khan - 04/12/2022 3:00 PM EDT Called pt, labs rescheduled to tomorrow (04/13) @ 800am * Telephone Encounter - Veronica Issa RN - 04/12/2022 2:50 PM EDT PSS: Please reschedule pt's labs per message below. Thank you. Veronica Issa RN * Telephone Encounter - Zeynep Burton APRN.CNP - 04/12/2022 2:44 PM EDT Of course. Zeynep Burton APRN.BELINDA * Telephone Encounter - Veronica Issa RN - 04/12/2022 1:59 PM EDT Received call from pt stating he is having increased fatigue and would like to know if he can get his labs moved up to this week or next. MAGALIE: Ok to have pt get labs early? Veronica Issa RN documented in this encounterCincinnati [facility] Medical Center05-06-2022 History of Present illness Narrative* Zeynep Burton APRN.CNP - 02/10/2022 9:09 AM EDT Images from the original note were not included. NAME: Kodi Rivas [facility] NO.: [id number] DATE OF SERVICE: February 10, 2022 Some [...] diagnosed with colitis. He was seen at [facility]. He developed blood in his stools. He [...] of Rituxan completed in October 2020 for Hadley Laura's macroglobulinemia that presents with fatigue as [...] done on 09/15/[address] Combs at [facility]. He states this [...] levels. 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 CC: Dr. Evan Eugene [address] [facility] [address] Dr[address] Joby Mays documented in this encounterCincinnati Va Medical Center10-29-2021 History of Present illness Narrative* Ainsley Orellana [...] 2021 TIME: 2:16 PM [facility]* Diagnosis Waldenstrom macroglobulinemia (HCC)- Primary Macroglobulinemia Malignant lymphoma, lymphoplasmacytic (HCC) Other named variants of lymphosarcoma and reticulosarcoma, unspecified extranodal and solid organ sites Monoclonal gammopathy Monoclonal paraproteinemia Other iron deficiency anemia documented in this encounter [facility]* Diagnosis Waldenstrom macroglobulinemia (HCC)- Primary Macroglobulinemia documented in this encounter [facility] note* Diagnosis Waldenstrom macroglobulinemia (HCC)- Primary Macroglobulinemia Type 2 diabetes mellitus with diabetic polyneuropathy, without long-term current use of insulin (HCC) documented in this encounter [facility] note* Diagnosis Waldenstrom macroglobulinemia (HCC)- Primary Macroglobulinemia Monoclonal gammopathy Monoclonal paraproteinemia Malignant lymphoma, lymphoplasmacytic (HCC) Other named variants of lymphosarcoma and reticulosarcoma, unspecified extranodal and solid organ sites Other iron deficiency anemia Type 2 diabetes mellitus with diabetic polyneuropathy, without long-term current use of insulin (HCC) [facility]* Diagnosis Waldenstrom macroglobulinemia (HCC)- Primary Macroglobulinemia Type 2 diabetes mellitus with diabetic polyneuropathy, without long-term current use of insulin (HCC) [facility]* Diagnosis Waldenstrom macroglobulinemia (HCC)- Primary Macroglobulinemia documented in this encounter [facility] note* Diagnosis Waldenstrom macroglobulinemia (HCC)- Primary Macroglobulinemia documented in this encounter [facility] note* Diagnosis Waldenstrom macroglobulinemia (HCC)- Primary Macroglobulinemia Type 2 diabetes mellitus with diabetic polyneuropathy, without long-term current use of insulin (HCC) Other iron deficiency anemia documented in this encounter [facility] note* Diagnosis Waldenstrom macroglobulinemia (HCC)- Primary Macroglobulinemia documented in this encounter [facility] noteNo [facility] Other Evaluation note* Diagnosis Waldenstrom macroglobulinemia (HCC)- Primary Macroglobulinemia 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 documented in this encounter [facility] note* Diagnosis Waldenstrom macroglobulinemia (HCC)- Primary Macroglobulinemia documented in this encounter [facility] note* Diagnosis Waldenstrom macroglobulinemia (HCC)- Primary Macroglobulinemia 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 Bilateral hip pain Pain in joint, pelvic region and thigh documented in this encounter [facility] note* Diagnosis Waldenstrom macroglobulinemia (HCC) Macroglobulinemia 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 documented in this encounter [facility]* Diagnosis Waldenstrom macroglobulinemia (HCC)- Primary Macroglobulinemia 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 documented in this encounter [facility]* Diagnosis Neoplasm of uncertain behavior of liver, gallbladder, and bile ducts Neoplasm of uncertain behavior of liver and biliary passages Abnormal CT of the abdomen Nonspecific (abnormal) findings on radiological and other examination of abdominal area, including retroperitoneum documented in this encounter [facility]* Diagnosis Waldenstrom macroglobulinemia (HCC)- Primary Macroglobulinemia 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 documented in this encounter [facility]* Diagnosis Waldenstrom macroglobulinemia (HCC)- Primary Macroglobulinemia Type 2 diabetes mellitus with diabetic polyneuropathy, without long-term current use of insulin (HCC) 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 documented in this encounter [facility]* Diagnosis Onset Date Resolution Status Asthma acuteGERD (gastroesophageal reflux disease)acuteHTN (hypertension)acute HypercholesterolemiaacuteMajor depressionacuteNeck painacuteNicotine dependence acuteOSA (obstructive sleep apnea)acuteType 2 diabetes mellitus with hyperglycemiaacuteScreening PSA (prostate specific antigen)noneactiveWellness examinationnoneactive [facility] Work Phone: Evaluation note* Diagnosis Obstructive sleep apnea- Primary Obstructive sleep apnea (adult) (pediatric) Intolerance of continuous positive airway pressure (CPAP) ventilation [facility]* Diagnosis Waldenstrom 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 Malaise and fatigue Other malaise and fatigue Monoclonal gammopathy Monoclonal paraproteinemia Malignant lymphoma, lymphoplasmacytic (HCC) Other named variants of lymphosarcoma and reticulosarcoma, unspecified extranodal and solid organ sites documented in this encounter [facility]* Diagnosis Waldenstrom macroglobulinemia- Primary Macroglobulinemia documented in this encounter [facility]* Diagnosis Waldenstrom macroglobulinemia- Primary Macroglobulinemia Malaise and fatigue Other malaise and fatigue [facility]* Diagnosis Waldenstrom macroglobulinemia- Primary Macroglobulinemia documented [facility]* Diagnosis Waldenstrom macroglobulinemia- Primary Macroglobulinemia documented [facility]* Diagnosis Waldenstrom macroglobulinemia- Primary Macroglobulinemia documented [facility]* Diagnosis Waldenstrom 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 Malaise and fatigue Other malaise and fatigue [facility]* Diagnosis Waldenstrom macroglobulinemia- Primary Macroglobulinemia [facility]* Diagnosis Obstructive sleep apnea- Primary Obstructive sleep apnea (adult) (pediatric) [facility]* Diagnosis TIANNA (obstructive sleep apnea)- Primary Obstructive sleep apnea (adult) (pediatric) [facility]* Diagnosis TIANNA (obstructive sleep apnea)- Primary Obstructive sleep apnea (adult) (pediatric) Hypersomnia Hypersomnia, unspecified Snoring Other dyspnea and respiratory abnormality Fatigue, unspecified type [facility]* Diagnosis Obstructive sleep apnea- Primary Obstructive sleep apnea (adult) (pediatric) [facility]* Diagnosis Waldenstrom macroglobulinemia- Primary Macroglobulinemia documented in this encounter [facility] note* Diagnosis Onset Date Resolution Status Admit Date Asthma acuteFebruary 2024 8:54amBenign prostatic hyperplasia with lower urinary tract symptomsacuteFebruary 2024 8:54amHTN (hypertension)acuteFebruary 2024 8:54amHypercholesterolemiaacuteFebruary 2024 8:54amMajor depression acuteFebruary 2024 8:54amNicotine dependenceacuteFebruary 2024 8:54am TIANNA (obstructive sleep apnea)acuteFebruary 2024 8:54amStrain of cervical portion of left trapezius muscleacuteFebruary 2024 8:54amType 2 diabetes mellitus with hyperglycemiaacuteFebruary 2024 8:54am [facility] Work Phone: Evaluation note* Diagnosis Waldenstrom 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 [facility]* Diagnosis TIANNA (obstructive sleep apnea)- Primary Obstructive sleep apnea (adult) (pediatric) Hypersomnia Hypersomnia, unspecified Snoring Other dyspnea and respiratory abnormality Numbness Disturbance of skin sensation [facility]* Diagnosis Infected epidermoid cyst- Primary [facility]* Diagnosis Encounter for colonoscopy due to history of colonic polyp- Primary Gastroesophageal reflux disease, unspecified whether esophagitis present History of colon polyps documented [facility]* Diagnosis Epidermoid cyst of skin of chest- Primary [facility]* Diagnosis Waldenstrom macroglobulinemia- Primary Macroglobulinemia documented in this encounter [facility] note* Diagnosis Waldenstrom 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 Malaise and fatigue Other malaise and fatigue [facility]* Diagnosis Waldenstrom macroglobulinemia- Primary Macroglobulinemia [facility]* Diagnosis TIANNA (obstructive sleep apnea)- Primary Obstructive sleep apnea (adult) (pediatric) Hypersomnia Hypersomnia, unspecified Snoring Other dyspnea and respiratory abnormality Numbness Disturbance of skin sensation [facility] Narrative - Reported* Type Description Date Medical History Hypertension Medical HistoryasthmaMedical HistoryallergiesMedical HistoryanxietyMedical HistoryhyperlipidemiaMedical HistoryEsophageal refluxSurgical Historywisdom teethSurgical HistorycolonoscopySurgical Historyambilical herniaSurgical History rt rotater cupSurgical Historytubes in bilateral earsHospitalization Historysee above [facility] Other History general Narrative - Reported* Type Description Date Medical History Hypertension Medical HistoryasthmaMedical HistoryallergiesMedical HistoryanxietyMedical HistoryhyperlipidemiaMedical HistoryEsophageal refluxSurgical Historywisdom teethSurgical HistorycolonoscopySurgical Historyambilical herniaSurgical History rt rotater cupSurgical Historytubes in bilateral earsSurgical History Colonoscopy, repeat 5 [id number] Historysee above [facility] Other InstructionsNot on filedocumented in this encounter [facility]Not on filedocumented in this encounter [facility] SystemInstructionsNot on filedocumented in this encounter [facility]InstructionsNot on filedocumented in this encounter [facility] SystemInstructionsNot on filedocumented in this encounter [facility] SystemInstructionsNot on filedocumented in this encounter [facility] SystemReason for visit Narrative* Johnson Prior Authorization (Routine) - AuthorizedSpecialtyDiagnoses / ProceduresReferred By Contact Referred To Contact Diagnoses Waldenstrom macroglobulinemia Procedures INJ RUXIENCE, 10 MG Joon Piper MD [address] [place] [address] [address] [place] [id number] Phone: tel: fax: Hematology/Oncology [address] [place] [address] [address] [place] [id number] Phone: tel: fax: Referral IDStatusReasonStart DateExpiration DateVisits RequestedVisits [id number] [facility] for visit Narrative* Other Medical (Routine) - Closed SpecialtyDiagnoses / ProceduresReferred By ContactReferred To ContactNeurology Diagnoses TIANNA (obstructive sleep apnea) Procedures VNS Device Interrogation w/simple programming 3 or fewer parameters Evan Eugene DO [address] [place] [address] Phone: tel: fax: Evan Eugene DO [address] [place] [address] Phone: tel: fax: Referral IDStatusReasonErie DateExpiration DateVisits RequestedVisits [id number]/7/[id number]/ [facility] Healthcare Summary Purpose Family History No Family History Records Found Relationship Condition Age at Onset Recorded Date/T linus father Unknown Relationship Condition Age at Onset Recorded Date/T linus father Unknown HypertensionUnknownCoronary artery diseaseUnknownmotherDiabetes mellitusUnknown Cerebrovascular accident (CVA)UnknownsisterMultiple sclerosisUnknown Advance Directives No Advanced Directives Records FoundDocuments on File TypeDate RecordedPatient RepresentativeExplanationAdvance Directive(s)09/26/2016 11:57 AM Advance Directive Response Recorded Date/ Time Advance Directives No June 9:01pm Advance Directive Response Recorded Date/ Time Advance Directives No June 8:01pm Medications Administered Section Medication OrderMAR ActionAction DateDoseRateSite riTUXimab-pvvr 700 mg in NaCl 0.9% 610 [...] a maximum of 400 mg/hr Refrigerate. Rate/Dose Fewazp9804/18/2023 3:20 PM FVG538 mL/hrRate/Dose Calhfg5704/18/2023 2:50 PM KKS672 mL/hrRate/Dose Xanoou6104/18/2023 2:20 PM NNQ637 mL/hrMedication Order MAR ActionAction DateDoseRateSite riTUXimab-pvvr 700 mg in NaCl 0.9% 610 mL (RUXIENCE) 700 mg (rounded from 738.75 mg = 375 mg/m2 1.97 m2 Treatment Plan BSA from Recorded weight), INTRAVENOUS, ONCE, 1 dose, On Sun05/02/23 at 0930, EXP: 05/11/23 0900 Infuse at rate of 100mg/hr. If no hypotension, increase rate every 30 minutes by 100mg/hr to a maximum rate of 400mg/hr. Refrigerate., Medication Substitution: [facility] preferred product has been replaced with the insurance mandated product Rate/Dose Kizcac7005/02/2023 11:40 AM YZT846 mL/hrRate/Dose Bhiwce3005/02/2023 11:10 AM WJE219 mL/hrRate/Dose Lynjhz8705/02/2023 10:40 AM PSZ591 mL/hrMedication Order MAR ActionAction DateDoseRateSite riTUXimab-pvvr 700 mg in NaCl 0.9% 610 [...] maximum of 400 mg/hr Refrigerate., Medication Substitution: [facility] preferred product has been replaced with the insurance mandated product Rate/Dose Egdonj5105/09/2023 11:27 AM EAA196 mL/hrRate/Dose Urshft5505/09/2023 10:56 AM SBU884 mL/hrRate/Dose Sqnzjr1405/09/2023 10:26 AM QPM290 mL/hr Reason for Referral SpecialtyDiagnoses / ProceduresReferred By ContactReferred To ContactMR IMAGING Diagnoses Neoplasm of uncertain behavior of liver, gallbladder, and bile ducts Abnormal CT of the abdomen Procedures MRI LIVER WO/W IVCON MRI,ABDOMEN,W&WO Joon Coe MD [address] [place] [address] [place] [id number] [place] [id number] Referral IDStatusReasonStart DateExpiration DateVisits RequestedVisits [id number] Auto-Generated Referral / Chief Complaint and Reason for Visit Chief Complaint neck pain Reason for Visit Asthma GERD (gastroesophageal reflux disease) HTN (hypertension) Hypercholesterolemia Major depression Neck pain Nicotine dependence TIANNA (obstructive sleep apnea) Type 2 diabetes mellitus with hyperglycemia Screening PSA (prostate specific antigen) Wellness examination Chief Complaint neck pain finger tips lacReason for VisitAsthma GERD (gastroesophageal reflux disease) HTN (hypertension) Hypercholesterolemia [...] section and content) DATE CREATED AUTHOR 04/03/2018 [facility] DATE CREATED AUTHOR AUTHOR'S ORGANIZ ATION 04/29/2018 [facility] DATE CREATED AUTHOR AUTHOR'S ORGANIZ ATION 04/16/2021 [facility] DATE CREATED AUTHOR AUTHOR'S ORGANIZ ATION 07/30/2022 [facility] [employer] DATE CREATED AUTHOR AUTHOR'S ORGANIZ ATION 10/05/2022 [facility] DATE CREATED AUTHOR AUTHOR'S ORGANIZ ATION 07/26/2023 [facility] DATE CREATED AUTHOR AUTHOR'S ORGANIZ ATION 06/26/2024 [facility] DATE CREATED AUTHOR AUTHOR'S ORGANIZ ATION 06/30/2024 [facility] DATE CREATED AUTHOR AUTHOR'S ORGANIZ ATION 10/04/2024 [facility] DATE CREATED AUTHOR AUTHOR'S ORGANIZ ATION 01/13/2025 [facility] DATE CREATED AUTHOR AUTHOR'S ORGANIZ ATION 04/02/2025 [facility] Source Comments (unrecognize d section and content) In the event this informatio n is protected by the Federal Confidentiality of Alcohol and Drug Abuse Patient Records regulations: The Federal rules restrict any use of the information to criminally investigate or prosecute any alcohol or drug abuse patient.[facility] the event this information is protected by the Federal Confidentiality of Alcohol and Drug Abuse Patient Records regulations: The Federal rules restrict any use of the information to criminally investigate or prosecute any alcohol or drug abuse patient.[facility] CenterIn the event this information is protected by the Federal Confidentiality of Alcohol and Drug Abuse Patient Records regulations: The Federal rules restrict any use of the information to criminally investigate or prosecute any alcohol or drug abuse patient.[facility] CenterIn the event this information is protected by the Federal Confidentiality of Alcohol and Drug Abuse Patient Records regulations: The Federal rules restrict any use of the information to criminally investigate or prosecute any alcohol or drug abuse patient.[facility] CenterIn the event this information is protected by the Federal Confidentiality of Alcohol and Drug Abuse Patient Records regulations: The Federal rules restrict any use of the information to criminally investigate or prosecute any alcohol or drug abuse patient.[facility] CenterIn the event this information is protected by the Federal Confidentiality of Alcohol and Drug Abuse Patient Records regulations: The Federal rules restrict any use of the information to criminally investigate or prosecute any alcohol or drug abuse patient.[facility] CenterIn the event this information is protected by the Federal Confidentiality of Alcohol and Drug Abuse Patient Records regulations: The Federal rules restrict any use of the information to criminally investigate or prosecute any alcohol or drug abuse patient.[facility] CenterIn the event this information is protected by the Federal Confidentiality of Alcohol and Drug Abuse Patient Records regulations: The Federal rules restrict any use of the information to criminally investigate or prosecute any alcohol or drug abuse patient.[facility] CenterIn the event this information is protected by the Federal Confidentiality of Alcohol and Drug Abuse Patient Records regulations: The Federal rules restrict any use of the information to criminally investigate or prosecute any alcohol or drug abuse patient.[facility] CenterIn the event this information is protected by the Federal Confidentiality of Alcohol and Drug Abuse Patient Records regulations: The Federal rules restrict any use of the information to criminally investigate or prosecute any alcohol or drug abuse patient.[facility] CenterIn the event this information is protected by the Federal Confidentiality of Alcohol and Drug Abuse Patient Records regulations: The Federal rules restrict any use of the information to criminally investigate or prosecute any alcohol or drug abuse patient.[facility] CenterIn the event this information is protected by the Federal Confidentiality of Alcohol and Drug Abuse Patient Records regulations: The Federal rules restrict any use of the information to criminally investigate or prosecute any alcohol or drug abuse patient.[facility] CenterIn the event this information is protected by the Federal Confidentiality of Alcohol and Drug Abuse Patient Records regulations: The Federal rules restrict any use of the information to criminally investigate or prosecute any alcohol or drug abuse patient.[facility] CenterIn the event this information is protected by the Federal Confidentiality of Alcohol and Drug Abuse Patient Records regulations: The Federal rules restrict any use of the information to criminally investigate or prosecute any alcohol or drug abuse patient.[facility] CenterIn the event this information is protected by the Federal Confidentiality of Alcohol and Drug Abuse Patient Records regulations: The Federal rules restrict any use of the information to criminally investigate or prosecute any alcohol or drug abuse patient.[facility] CenterIn the event this information is protected by the Federal Confidentiality of Alcohol and Drug Abuse Patient Records regulations: The Federal rules restrict any use of the information to criminally investigate or prosecute any alcohol or drug abuse patient.[facility] CenterIn the event this information is protected by the Federal Confidentiality of Alcohol and Drug Abuse Patient Records regulations: The Federal rules restrict any use of the information to criminally investigate or prosecute any alcohol or drug abuse patient.[facility] CenterIn the event this information is protected by the Federal Confidentiality of Alcohol and Drug Abuse Patient Records regulations: The Federal rules restrict any use of the information to criminally investigate or prosecute any alcohol or drug abuse patient.[facility] CenterIn the event this information is protected by the Federal Confidentiality of Alcohol and Drug Abuse Patient Records regulations: The Federal rules restrict any use of the information to criminally investigate or prosecute any alcohol or drug abuse patient.[facility] CenterIn the event this information is protected by the Federal Confidentiality of Alcohol and Drug Abuse Patient Records regulations: The Federal rules restrict any use of the information to criminally investigate or prosecute any alcohol or drug abuse patient.[facility] CenterIn the event this information is protected by the Federal Confidentiality of Alcohol and Drug Abuse Patient Records regulations: The Federal rules restrict any use of the information to criminally investigate or prosecute any alcohol or drug abuse patient.[facility] CenterIn the event this information is protected by the Federal Confidentiality of Alcohol and Drug Abuse Patient Records regulations: The Federal rules restrict any use of the information to criminally investigate or prosecute any alcohol or drug abuse patient.[facility] CenterIn the event this information is protected by the Federal Confidentiality of Alcohol and Drug Abuse Patient Records regulations: The Federal rules restrict any use of the information to criminally investigate or prosecute any alcohol or drug abuse patient.[facility] CenterIn the event this information is protected by the Federal Confidentiality of Alcohol and Drug Abuse Patient Records regulations: The Federal rules restrict any use of the information to criminally investigate or prosecute any alcohol or drug abuse patient.[facility] CenterIn the event this information is protected by the Federal Confidentiality of Alcohol and Drug Abuse Patient Records regulations: The Federal rules restrict any use of the information to criminally investigate or prosecute any alcohol or drug abuse patient.[facility] CenterIn the event this information is protected by the Federal Confidentiality of Alcohol and Drug Abuse Patient Records regulations: The Federal rules restrict any use of the information to criminally investigate or prosecute any alcohol or drug abuse patient.[facility] CenterIn the event this information is protected by the Federal Confidentiality of Alcohol and Drug Abuse Patient Records regulations: The Federal rules restrict any use of the information to criminally investigate or prosecute any alcohol or drug abuse patient.[facility] CenterIn the event this information is protected by the Federal Confidentiality of Alcohol and Drug Abuse Patient Records regulations: The Federal rules restrict any use of the information to criminally investigate or prosecute any alcohol or drug abuse patient.[facility] CenterIn the event this information is protected by the Federal Confidentiality of Alcohol and Drug Abuse Patient Records regulations: The Federal rules restrict any use of the information to criminally investigate or prosecute any alcohol or drug abuse patient.[facility] CenterIn the event this information is protected by the Federal Confidentiality of Alcohol and Drug Abuse Patient Records regulations: The Federal rules restrict any use of the information to criminally investigate or prosecute any alcohol or drug abuse patient.[facility] CenterIn the event this information is protected by the Federal Confidentiality of Alcohol and Drug Abuse Patient Records regulations: The Federal rules restrict any use of the information to criminally investigate or prosecute any alcohol or drug abuse patient.[facility] CenterIn the event this information is protected by the Federal Confidentiality of Alcohol and Drug Abuse Patient Records regulations: The Federal rules restrict any use of the information to criminally investigate or prosecute any alcohol or drug abuse patient.[facility] CenterIn the event this information is protected by the Federal Confidentiality of Alcohol and Drug Abuse Patient Records regulations: The Federal rules restrict any use of the information to criminally investigate or prosecute any alcohol or drug abuse patient.[facility] CenterIn the event this information is protected by the Federal Confidentiality of Alcohol and Drug Abuse Patient Records regulations: The Federal rules restrict any use of the information to criminally investigate or prosecute any alcohol or drug abuse patient.[facility] CenterIn the event this information is protected by the Federal Confidentiality of Alcohol and Drug Abuse Patient Records regulations: The Federal rules restrict any use of the information to criminally investigate or prosecute any alcohol or drug abuse patient.[facility] CenterIn the event this information is protected by the Federal Confidentiality of Alcohol and Drug Abuse Patient Records regulations: The Federal rules restrict any use of the information to criminally investigate or prosecute any alcohol or drug abuse patient.[facility] CenterIn the event this information is protected by the Federal Confidentiality of Alcohol and Drug Abuse Patient Records regulations: The Federal rules restrict any use of the information to criminally investigate or prosecute any alcohol or drug abuse patient.[facility] CenterIn the event this information is protected by the Federal Confidentiality of Alcohol and Drug Abuse Patient Records regulations: The Federal rules restrict any use of the information to criminally investigate or prosecute any alcohol or drug abuse patient.[facility] CenterIn the event this information is protected by the Federal Confidentiality of Alcohol and Drug Abuse Patient Records regulations: The Federal rules restrict any use of the information to criminally investigate or prosecute any alcohol or drug abuse patient.[facility] CenterIn the event this information is protected by the Federal Confidentiality of Alcohol and Drug Abuse Patient Records regulations: The Federal rules restrict any use of the information to criminally investigate or prosecute any alcohol or drug abuse patient.[facility] CenterIn the event this information is protected by the Federal Confidentiality of Alcohol and Drug Abuse Patient Records regulations: The Federal rules restrict any use of the information to criminally investigate or prosecute any alcohol or drug abuse patient.[facility] CenterIn the event this information is protected by the Federal Confidentiality of Alcohol and Drug Abuse Patient Records regulations: The Federal rules restrict any use of the information to criminally investigate or prosecute any alcohol or drug abuse patient.[facility] CenterIn the event this information is protected by the Federal Confidentiality of Alcohol and Drug Abuse Patient Records regulations: The Federal rules restrict any use of the information to criminally investigate or prosecute any alcohol or drug abuse patient.[facility] the event this information is protected by the Federal Confidentiality of Alcohol and Drug Abuse Patient Records regulations: The Federal rules restrict any use of the information to criminally investigate or prosecute any alcohol or drug abuse patient.[facility] CenterIn the event this information is protected by the Federal Confidentiality of Alcohol and Drug Abuse Patient Records regulations: The Federal rules restrict any use of the information to criminally investigate or prosecute any alcohol or drug abuse patient.[facility] CenterIn the event this information is protected by the Federal Confidentiality of Alcohol and Drug Abuse Patient Records regulations: The Federal rules restrict any use of the information to criminally investigate or prosecute any alcohol or drug abuse patient.[facility] CenterIn the event this information is protected by the Federal Confidentiality of Alcohol and Drug Abuse Patient Records regulations: The Federal rules restrict any use of the information to criminally investigate or prosecute any alcohol or drug abuse patient.[facility] CenterIn the event this information is protected by the Federal Confidentiality of Alcohol and Drug Abuse Patient Records regulations: The Federal rules restrict any use of the information to criminally investigate or prosecute any alcohol or drug abuse patient.[facility] CenterIn the event this information is protected by the Federal Confidentiality of Alcohol and Drug Abuse Patient Records regulations: The Federal rules restrict any use of the information to criminally investigate or prosecute any alcohol or drug abuse patient.[facility] Care Teams (unrecognized sec tion and content) Team MemberRelationshipSpecialtyStart DateEnd Date Joby Mays, DO [address] [place] [address] PCP - GeneralInternal Medicine11/07/21 Joon Piper MD [address] [place] [address] [place] [address] PhysicianHematology/Oncology05/25/20 Zeynep Burton, REGISTERED REPRESENTATIVE.SIGNAL CONSTRUCTOR [address] [facility] [place] [address] Nurse PractitionerHematology/Oncology05/25/20 Diana Leong, RN [address] [facility] [place] [address] Specialty Care CoordinatorHematology/Oncology05/25/20Team MemberRelationship SpecialtyStart DateEnd Date Joby Mays, DO [address] [facility] [place] [id number] PCP - GeneralInternal Medicine11/07/21 Joon Piper MD [address] [facility] [place] [place] [address] PhysicianHematology/Oncology05/25/20 Zeynep Burton, REGISTERED REPRESENTATIVE.SIGNAL CONSTRUCTOR [address] [facility] [place] [address] Nurse PractitionerHematology/Oncology05/25/20 Diana Leong, LENNY [address] [facility] [place] [address] Specialty Care CoordinatorHematology/Oncology05/25/20Te MemberRelationship SpecialtyStart DateEnd Date Joby Mays, DO [address] [facility] [place] [phone] PCP - GeneralInternal Medicine11/07/21 Joon Piper MD [address] [facility] [place] [address] PhysicianHematology/Oncology05/25/20 Zeynep Burton, REGISTERED REPRESENTATIVE.SIGNAL CONSTRUCTOR [address] [facility] [place] [address] Nurse PractitionerHematology/Oncology05/25/20 Diana Leong, RN [address] [place] [address] Specialty Care CoordinatorHematology/Oncology05/25/20Team MemberRelationship SpecialtyStart DateEnd Date Joby Mays, DO [address] [facility] [place] [address] PCP - GeneralInternal Medicine11/07/21 Joon Piper MD [address] [place] [address] PhysicianHematology/Oncology05/25/20 Zeynep Burton, REGISTERED REPRESENTATIVE.SIGNAL CONSTRUCTOR [address] [place] [address] Nurse PractitionerHematology/Oncology05/25/20 Diana Leong, LENNY [address] [place] [address] Specialty Care CoordinatorHematology/Oncology05/25/20Team MemberRelationship SpecialtyStart DateEnd Date Joby Mays, DO [address] [place] [address] PCP - GeneralInternal Medicine11/07/21 Joon Piper MD [address] [place] [address] PhysicianHematology/Oncology05/25/20 Zeynep Burton, REGISTERED REPRESENTATIVE.SIGNAL CONSTRUCTOR [address] [place] [address] Nurse PractitionerHematology/Oncology05/25/20 Diana Leong, RN [address] [place] [address] Specialty Care CoordinatorHematology/Oncology05/25/20Team MemberRelationship SpecialtyStart DateEnd Date Joby Mays, DO [address] [place] [address] PCP - GeneralInternal Medicine11/07/21 Joon Piper MD [address] [place] [address] PhysicianHematology/Oncology05/25/20 Zeynep Burton, REGISTERED REPRESENTATIVE.SIGNAL CONSTRUCTOR [address] [place] [address] Nurse PractitionerHematology/Oncology05/25/20 Diana Leong, LENNY [address] [place] [address] Specialty Care CoordinatorHematology/Oncology05/25/20Team MemberRelationship SpecialtyStart DateEnd Date Joby Mays, DO [address] [place] [address] PCP - GeneralInternal Medicine11/07/21 Joon Piper MD [address] [place] [address] PhysicianHematology/Oncology05/25/20 Zeynep Burton, REGISTERED REPRESENTATIVE.SIGNAL CONSTRUCTOR [address] [facility] [place] [address] Nurse PractitionerHematology/Oncology05/25/20 Diana Leong, LENNY [address] [place] [address] Specialty Care CoordinatorHematology/Oncology05/25/20 Saranya Rowell LSW Social Worker03/19/23Team MemberRelationshipSpecialtyStart DateEnd Date Joby Mays, DO [address] [place] [address] PCP - GeneralInternal Medicine11/07/21 Joon Piper MD [address] [place] [address] PhysicianHematology/Oncology05/25/20 Zeynep Burton, REGISTERED REPRESENTATIVE.SIGNAL CONSTRUCTOR [address] [place] [address] Nurse PractitionerHematology/Oncology05/25/20 Diana Leong, LENNY [address] [place] [address] Specialty Care CoordinatorHematology/Oncology05/25/20 Saranya Rowell LSW Social Worker03/19/23Team MemberRelationshipSpecialtyStart DateEnd Date Joby Mays, DO [address] [place] [address] PCP - GeneralInternal Medicine11/07/21 Joon Piper MD [address] [place] [address] PhysicianHematology/Oncology05/25/20 Zeynep Burton, REGISTERED REPRESENTATIVE.SIGNAL CONSTRUCTOR [address] [facility] [place] [address] Nurse PractitionerHematology/Oncology05/25/20 Diana Leong, LENNY [address] [place] [address] Specialty Care CoordinatorHematology/Oncology05/25/20 Saranya Rowell LSW Social Worker03/19/23Team MemberRelationshipSpecialtyStart DateEnd Date Joby Mays, [address] [place] [address] PCP - GeneralInternal Medicine11/07/21 Joon Piper MD [address] [place] [address] PhysicianHematology/Oncology05/25/20 Zeynep Burton, REGISTERED REPRESENTATIVE.SIGNAL CONSTRUCTOR [address] [facility] [place] [address] Nurse PractitionerHematology/Oncology05/25/20 Diana Leong, LENNY [address] [facility] [place] [address] Specialty Care CoordinatorHematology/Oncology05/25/20 Saranya Rowell LSW Social Worker03/19/23Team MemberRelationshipSpecialtyStart DateEnd Date Joby Mays, [address] [facility] [address] PCP - GeneralInternal Medicine11/07/21 Joon Piper MD [address] [facility] [place] [address] PhysicianHematology/Oncology05/25/20 Zeynep Burton, REGISTERED REPRESENTATIVE.SIGNAL CONSTRUCTOR [address] [facility] [place] [address] Nurse PractitionerHematology/Oncology05/25/20 Diana Leong RN [address] [facility] [place] [address] Specialty Care CoordinatorHematology/Oncology05/25/20 Saranya Rowell LSW Social Worker03/19/23Team MemberRelationshipSpecialtyStart DateEnd Date Joby Mays, [address] [facility] [place] [place] [address] PCP - GeneralInternal Medicine11/07/21 Joon Piper MD [address] [place] [address] PhysicianHematology/Oncology05/25/20 Zeynep Burton, REGISTERED REPRESENTATIVE.SIGNAL CONSTRUCTOR [address] [place] [address] Nurse PractitionerHematology/Oncology05/25/20 Diana Leong, LENNY [address] [place] [address] Specialty Care CoordinatorHematology/Oncology05/25/20 Saranya Rowell LSW Social Worker03/19/23Team MemberRelationshipSpecialtyStart DateEnd Date Joby Mays, DO [address] [place] [address] PCP - GeneralInternal Medicine11/07/21 Joon Piper MD [address] [place] [address] PhysicianHematology/Oncology05/25/20 Zeynep Burton, REGISTERED REPRESENTATIVE.SIGNAL CONSTRUCTOR [address] [place] [address] Nurse PractitionerHematology/Oncology05/25/20 Diana Leong, LENNY [address] [place] [address] Specialty Care CoordinatorHematology/Oncology05/25/20 Saranya Rowell LSW Social Worker03/19/23Team MemberRelationshipSpecialtyStart DateEnd Date Joby Mays, [address] [place] [address] PCP - GeneralInternal Medicine11/07/21 Joon Piper MD [address] [facility] [place] [address] PhysicianHematology/Oncology05/25/20 Zeyenp Butron, REGISTERED REPRESENTATIVE.SIGNAL CONSTRUCTOR [address] [place] [address] Nurse PractitionerHematology/Oncology05/25/20 Diana Leong, LENNY [address] [facility] [place] [address] Specialty Care CoordinatorHematology/Oncology05/25/20 Saranya Rowell, SIDNEY Social Worker03/19/23Team MemberRelationshipSpecialtyStart DateEnd Date Joby Mays, DO [address] [facility] [place] [address] PCP - GeneralInternal Medicine11/07/21 Joon Piper MD [address] [facility] [place] [address] PhysicianHematology/Oncology05/25/20 Zeynep Burton, REGISTERED REPRESENTATIVE.SIGNAL CONSTRUCTOR [address] [facility] [facility], [place] [address] Nurse PractitionerHematology/Oncology05/25/20 Diana Leong, LENNY [address] [facility], [place] [address] Specialty Care CoordinatorHematology/Oncology05/25/20 Saranya Rowell LSW Social Worker03/19/23Team MemberRelationshipSpecialtyStart DateEnd Date Joby Mays, DO [address] [facility], [place] [address] PCP - GeneralInternal Medicine11/07/21 Joon Piper MD [address] [facility], [place] [address] PhysicianHematology/Oncology05/25/20 Zeynep Burton, REGISTERED REPRESENTATIVE.SIGNAL CONSTRUCTOR [address] [facility], [place] [address] Nurse PractitionerHematology/Oncology05/25/20 Diana Leong, LENNY [address] [facility], [place] [address] Specialty Care CoordinatorHematology/Oncology05/25/20 Saranya Rowell LSW Social Worker03/19/23Team MemberRelationshipSpecialtyStart DateEnd Date Joby Mays, DO [address] [facility] [place] [address] PCP - GeneralInternal Medicine11/07/21 Joon Piper MD [address] [facility] [place] [address] PhysicianHematology/Oncology05/25/20 Zeynep Burton, REGISTERED REPRESENTATIVE.SIGNAL CONSTRUCTOR [address] [place] [address] Nurse PractitionerHematology/Oncology05/25/20 Diana Leong, LENNY [address] [facility], [place] [address] Specialty Care CoordinatorHematology/Oncology05/25/20 Saranya Rowell, SIDNEY Social Worker03/19/23Team MemberRelationshipSpecialtyStart DateEnd Date Joby Mays, [address] [facility] [place] [address] PCP - GeneralInternal Medicine11/07/21 Joon Piper MD [address] [facility] [place] [address] PhysicianHematology/Oncology05/25/20 Zeynep Burton, REGISTERED REPRESENTATIVE.SIGNAL CONSTRUCTOR [address] [facility] [place] [address] Nurse PractitionerHematology/Oncology05/25/20 Diana Leong, LENNY [address] [facility] [place] [address] Specialty Care CoordinatorHematology/Oncology05/25/20 Saranya Rowell LSW Social Worker03/19/23Team MemberRelationshipSpecialtyStart DateEnd Date Joby Mays DO [address] [facility] [place] [address] PCP - GeneralInternal Medicine11/07/21 Joon Piper MD [address] [facility] [place] [address] PhysicianHematology/Oncology05/25/20 Zeynep Burton, REGISTERED REPRESENTATIVE.SIGNAL CONSTRUCTOR [address] [facility] [place] [address] Nurse PractitionerHematology/Oncology05/25/20 Diana Leong, LENNY [address] [facility] [place] [place] [address] Specialty Care CoordinatorHematology/Oncology05/25/20 Saranya Rowell LSW Social Worker03/19/23Team MemberRelationshipSpecialtyStart DateEnd Date Evan Eugene PCP - GeneralNeurology Joon Piper MD [address] [place] [address] [place] [address] PhysicianHematology/Oncology05/25/20 Zeynep Burton, REGISTERED REPRESENTATIVE.SIGNAL CONSTRUCTOR [address] [facility] [place] [address] Nurse PractitionerHematology/Oncology05/25/20 Diana Leong, LENNY [address] [facility] [place] [address] Specialty Care CoordinatorHematology/Oncology05/25/20Team MemberRelationship SpecialtyStart DateEnd Date Joby Mays, [address] [place] [address] [place] [address] PCP - GeneralInternal Medicine11/07/21 Joon Piper MD [address] [place] [address] [place] [address] PhysicianHematology/Oncology05/25/20 Zeynep Burton, REGISTERED REPRESENTATIVE.SIGNAL CONSTRUCTOR [address] [place] [address] [place] [address] Nurse PractitionerHematology/Oncology05/25/20 Diana Leong, LENNY [address] [facility] [place] [address] Specialty Care CoordinatorHematology/Oncology05/25/20 Saranya Rowell LSW Social Worker03/19/23Team MemberRelationshipSpecialtyStart DateEnd Date Joby Mays, [address] [place] [address] [place] [address] PCP - GeneralInternal Medicine11/07/21 Joon Piper MD [address] [facility] [place] [address] PhysicianHematology/Oncology05/25/20 Zeynep Burton, REGISTERED REPRESENTATIVE.SIGNAL CONSTRUCTOR [address] [facility] [place] [address] Nurse PractitionerHematology/Oncology05/25/20 Diana Leong, LENNY [address] [facility] [place] [address] Specialty Care CoordinatorHematology/Oncology05/25/20 Saranya Rowell LSW Social Worker03/19/23Team MemberRelationshipSpecialtyStart DateEnd Date Joby Mays DO [address] [place] [address] [place] [address] PCP - GeneralInternal Medicine11/07/21 Joon Piper MD [address] [place] [address] [place] [address] PhysicianHematology/Oncology05/25/20 Zeynep Burton, REGISTERED REPRESENTATIVE.SIGNAL CONSTRUCTOR [address] [facility] [place] [address] Nurse PractitionerHematology/Oncology05/25/20 Diaan Leong, LENNY [address] [facility] [place] [address] Specialty Care CoordinatorHematology/Oncology05/25/20 Saranya Rowell LSW Social Worker03/19/23 Team Status: Active Member Role Status Dates Joby Mays DO Primary Care Provider Active Team Status: Active Member Role Status Dates Joby Mays DO Primary Care Provider Active Start: April 17, 2024 Jackie Ramírez ProviderActiveStart: April 17, 2024 Team Status: Inactive Member Role Status Dates Joby Mays DO Primary Care Provide r, Attending Provider Active Start: May 21, 2024 End: May 21, 2024Team MemberRelationshipSpecialtyStart DateEnd Date Joby Mays DO [address] [place] [address] [place] [address] PCP - GeneralInternal Medicine11/07/21 Joon Piper MD [address] [place] [address] [place] [address] PhysicianHematology/Oncology05/25/20 Zeynep Burton APRN.SIGNAL CONSTRUCTOR [address] [place] [address] [address] [place], [facility] Nurse PractitionerHematology/Oncology05/25/20 Diana Leong, LENNY [address] [place] [address] [place] [address] Specialty Care CoordinatorHematology/Oncology05/25/20 Saranya Rowell LSW Social Worker03/19/23 Team Status: Active Member Role Status Dates Joby Mays DO Primary Care Provide r, Attending Provider Active Start: June 20, 2024 Team Status: Inactive Member Role Status Dates Joby Mays DO Primary Care Provider Active Start: June 23, 2024 End: June 23, 2024Marva Garcia ProviderActiveStart: June 23, 2024 End: June 23, 2024Team MemberRelationshipSpecialtyStart DateEnd Date Joby Mays MD [address] [place] [address] PCP - GeneralInternal Medicine12/22/23Team MemberRelationshipSpecialtyStart Date End Date Joby Mays MD [address] [place] [address] PCP - GeneralInternal Medicine12/22/23Team MemberRelationshipSpecialtyStart Date End Date Joby Mays DO [address] [facility] [place] [address] PCP - GeneralInternal Medicine11/07/21 Joon Piper MD [address] [facility] [place] [address] PhysicianHematology/Oncology05/25/20 Zeynep Burton, REGISTERED REPRESENTATIVE.SIGNAL CONSTRUCTOR [address] [facility] [place] [address] Nurse PractitionerHematology/Oncology05/25/20 Diana Leong, LENNY [address] [facility] [place] [address] Specialty Care CoordinatorHematology/Oncology05/25/20 Saranya Rowell LSW Social Worker03/19/23Team MemberRelationshipSpecialtyStart DateEnd Date Joby Mays DO [address] [facility] [place] [address] PCP - GeneralInternal Medicine11/07/21 Joon Piper MD [address] [facility] [place] [address] PhysicianHematology/Oncology05/25/20 Zeynep Burton, REGISTERED REPRESENTATIVE.SIGNAL CONSTRUCTOR [address] [facility] [place] [address] Nurse PractitionerHematology/Oncology05/25/20 Diana Leong, LENNY [address] [facility], [place] [address] Specialty Care CoordinatorHematology/Oncology05/25/20 Saranya Rowell, SIDNEY Social Worker03/19/23Team MemberRelationshipSpecialtyStart DateEnd Date Joby Mays DO [facility] [place] [address] PCP - GeneralInternal Medicine11/07/21 Joon Piper MD [address] [facility] [place] [address] PhysicianHematology/Oncology05/25/20 Zeynep Burton, REGISTERED REPRESENTATIVE.SIGNAL CONSTRUCTOR [address] [facility] [place] [address] Nurse PractitionerHematology/Oncology05/25/20 Diana Leong RN [address] [facility], [place] [address] Specialty Care CoordinatorHematology/Oncology05/25/20 Saranya Rowell [employer] LAYOUT DESIGNER Social Worker03/19/23Team MemberRelationshipSpecialtyStart DateEnd Date Joby Mays DO [address] [facility] [place] [address] PCP - GeneralInternal Medicine11/07/21 Joon Piper MD [address] [facility] [place] [address] PhysicianHematology/Oncology05/25/20 Zeynep Burton, REGISTERED REPRESENTATIVE.SIGNAL CONSTRUCTOR [address] [facility] [place] [address] Nurse PractitionerHematology/Oncology05/25/20 Diana Leong, LENNY [address] [facility] [place] [address] Specialty Care CoordinatorHematology/Oncology05/25/20 Saranya Rowell LSW Social Worker03/19/23Team MemberRelationshipSpecialtyStart DateEnd Date Joby Mays DO [address] [facility] [place] [address] PCP - GeneralInternal Medicine11/07/21 Joon Piper MD [address] [facility] [place] [address] PhysicianHematology/Oncology05/25/20 Zeynep Burton APRN.SIGNAL CONSTRUCTOR [address] [facility] [place] [address] Nurse PractitionerHematology/Oncology05/25/20 Diana Leong RN [address] [facility] [place] [address] Specialty Care CoordinatorHematology/Oncology05/25/20 Saranya Rowell LSW Social Worker03/19/23Te MemberRelationshipSpecialtyStart DateEnd Date Joby Mays DO [address] [facility] [place] [address] PCP - GeneralInternal Medicine11/07/21 Joon Piper MD [address] [facility] [place] [address] PhysicianHematology/Oncology05/25/20 Zeynep Burton APRN.SIGNAL CONSTRUCTOR [address] [place] [address] Nurse PractitionerHematology/Oncology05/25/20 Diana eLong, RN [address] [place] [address] Specialty Care CoordinatorHematology/Oncology05/25/20 Saranya Rowell LSW Social Worker03/19/23Team MemberRelationshipSpecialtyStart DateEnd Date Joby Mays, DO [address] [place] [address] PCP - GeneralInternal Medicine11/07/21 Joon Piper MD [address] [facility] [place] [address] PhysicianHematology/Oncology05/25/20 Zeynep Burton, REGISTERED REPRESENTATIVE.SIGNAL CONSTRUCTOR [address] [place] [address] Nurse PractitionerHematology/Oncology05/25/20 Diana Leong, LENNY [address] [facility] [place] [address] Specialty Care CoordinatorHematology/Oncology05/25/20 Saranya Rowell LSW Social Worker03/19/23Te MemberRelationshipSpecialtyStart DateEnd Date Joby Mays DO [address] [place] [address] PCP - GeneralInternal Medicine11/07/21 Joon Piper MD [address] [place] [address] PhysicianHematology/Oncology05/25/20 Zeynep Burton, REGISTERED REPRESENTATIVE.SIGNAL CONSTRUCTOR [address] [facility] [place] [address] Nurse PractitionerHematology/Oncology05/25/20 Diana Leong, LENNY [address] [facility] [place] [place] [address] Specialty Care CoordinatorHematology/Oncology05/25/20 Saranya Rowell LSW Social Worker03/19/23Team MemberRelationshipSpecialtyStart DateEnd Date Joby Mays MD [address] [place] [address] PCP - GeneralInternal Medicine12/22/23Team MemberRelationshipSpecialtyStart Date End Date Joby Mays MD [address] [place] [phone] PCP - GeneralInternal Medicine12/22/23Team MemberRelationshipSpecialtyStart Date End Date Joby Mays MD [address] [place] [phone] PCP - GeneralInternal Medicine12/22/23Team MemberRelationshipSpecialtyStart Date End Date Joby Mays DO [address] [facility] [place] [place] [address] PCP - GeneralInternal Medicine11/07/21 Joon Piper MD [address] [facility] [place] [address] PhysicianHematology/Oncology05/25/20 Zeynep Burton, REGISTERED REPRESENTATIVE.SIGNAL CONSTRUCTOR [address] [facility] [place] [address] Nurse PractitionerHematology/Oncology05/25/20 Diana Leong, LENNY [address] [facility] [place] [address] Specialty Care CoordinatorHematology/Oncology05/25/20 Saranya Rowell LSW Social Worker03/19/23 Team Status: Active Member Role Status Dates Joby Mays DO Primary Care Provider Active Start: August 13, 2024 Joon V Abhyankar , MDAttending ProviderActiveStart: August 13, 2024 Team Status: Active Member Role Status Dates Joby Mays DO Primary Care Provider Active Start: August 20, 2024 Joon V Abhyankar , MDAttending ProviderActiveStart: August 20, 2024 Team Status: Inactive Member Role Status Dates Joby Mays DO Primary Care Provider Active Start: August 29, 2024 End: August 29enjaelijah Sol , DOAttending ProviderActiveStart: August 29, 2024 End: August 29, 2024 Team Status: Active Member Role Status Dates Joby Mays DO Primary Care Provider Active Start: September 10, 2024 Trinh Ramirez APRN CELL LINER-CAttending ProviderActiveStart: September 10, 2024 Team Status: Inactive Member Role Status Dates Joby Mays DO Primary Care Provider Active Start: September 12, 2024 End: September 12enashley Sol , DOAttending ProviderActiveStart: September 12, 2024 End: September 12, 2024 Team Status: Active Member Role Status Dates Joby Mays DO Primary Care Provider Active Start: September 17, 2024 Trinh Ramirez APRN CELL LINER-CAttending ProviderActiveStart: September 17, 2024 Team Status: Inactive Member Role Status Dates Joby Mays DO Primary Care Provide r, Attending Provider Active Start: November 11, 2024 End: November 11, 2024Team MemberRelationshipSpecialtyStart DateEnd Date Joby Mays MD [address] [place] [phone] PCP - GeneralInternal Medicine12/22/23Team MemberRelationshipSpecialtyStart Date End Date Joby Mays MD [address] [facility] [place] [address] PCP - GeneralInternal Medicine12/22/23Team MemberRelationshipSpecialtyStart Date End Date Joby Mays, DO [address] [place] [address] PCP - GeneralInternal Medicine01/26/22Team MemberRelationshipSpecialtyStart Date End Date Joby Mays DO [address] [place] [address] PCP - GeneralInternal Medicine01/26/22Team MemberRelationshipSpecialtyStart Date End Date Joby Mays DO [address] [place] [address] PCP - GeneralInternal Medicine01/26/22Team MemberRelationshipSpecialtyStart Date End Date Joby Mays, [address] [facility] [place] [address] PCP - GeneralInternal Medicine11/07/21 Joon Piper MD [address] [facility] [place] [address] PhysicianHematology/Oncology05/25/20 Zeynep Burton, EMERY.SIGNAL CONSTRUCTOR [address] [facility] [place] [address] Nurse PractitionerHematology/Oncology05/25/20 Diana Leong, LENNY [address] [facility] [place] [address] Specialty Care CoordinatorHematology/Oncology05/25/20 Saranya Rowell LSW Social Worker03/19/23Team MemberRelationshipSpecialtyStart DateEnd Date Joby Mays DO [address] [place] [address] PCP - GeneralInternal Medicine01/26/22Team MemberRelationshipSpecialtyStart Date End Date Joby Mays DO [address] [place] [address] PCP - GeneralInternal Medicine01/26/22Team MemberRelationshipSpecialtyStart Date End Date Joby Mays DO [address] [place] [address] PCP - GeneralInternal Medicine01/26/22Team MemberRelationshipSpecialtyStart Date End Date Joby Mays DO PCP - GeneralInternal Medicine01/26/22Team MemberRelationshipSpecialtyStart Date End Date Joby Mays DO PCP - GeneralInternal Medicine01/26/22Team MemberRelationshipSpecialtyStart Date End Date Joby Mays DO PCP - GeneralInternal Medicine01/26/22Team MemberRelationshipSpecialtyStart Date End Date Joby Mays MD [address] [facility] [place] [address] PCP - GeneralInternal Medicine12/22/23 Evan Eugene, DO [address] [place] [address] Referring PhysicianNeurology12/11/24Team MemberRelationshipSpecialtyStart DateEnd Date Joby Mays DO [address] [facility] [place] [address] PCP - GeneralInternal Medicine11/07/21 Joon Piper MD [address] [facility] [place] [address] PhysicianHematology/Oncology05/25/20 Zeynep Burton, EMERY.SIGNAL CONSTRUCTOR [address] [facility] [place] [address] Nurse PractitionerHematology/Oncology05/25/20 Diana Leong, LENNY [address] [facility] [place] [address] Specialty Care CoordinatorHematology/Oncology05/25/20 Saranya Rowell LSW Social Worker03/19/23Team MemberRelationshipSpecialtyStart DateEnd Date Joby Mays, [address] [facility] [place] [address] PCP - GeneralInternal Medicine11/07/21 Joon Piper MD [address] [facility] [place] [address] PhysicianHematology/Oncology05/25/20 Zeynep Burton, EMERY.SIGNAL CONSTRUCTOR [address] [facility] [place] [address] Nurse PractitionerHematology/Oncology05/25/20 Diana Leong, LENNY [address] [place] [address] [place] [address] Specialty Care CoordinatorHematology/Oncology05/25/20 Saranya Rowell LSW Social Worker03/19/23Team MemberRelationshipSpecialtyStart DateEnd Date Joby Mays MD [address] [place] [phone] PCP - GeneralInternal Medicine12/22/23 Evan Eugene DO [address] [place] [address] Referring PhysicianNeurology12/11/24Team MemberRelationshipSpecialtyStart DateEnd Date Joby Mays MD [address] [place] [address] PCP - GeneralInternal Medicine12/22/23 Evan Eugene DO [address] [place] [address] Referring PhysicianNeurology12/11/24 Reason for Visit (unrecogniz ed section and content) ReasonCommentsFatigueAppointmentReasonCommentsWaldenstrom macroglobulinemia ReasonCommentsWaldenstrom macroglobulinemiaReasonCommentsWaldenstrom macroglobulinemia3 month follow upReasonCommentsAppointmentReasonCommentsNon- Chemotherapy TreatmentRituximabReasonCommentsDisability MemoReasonComments Waldenstrom macroglobulinemia1 month follow upSpecialtyDiagnoses / Procedures Referred By ContactReferred To Contact Diagnoses Waldenstrom macroglobulinemia (HCC) Procedures INJ RUXIENCE, 10 MG Joon Piper MD [address] [place] [address] [place] [address] Brandon Treat Laron [address] [place] [address] Referral IDStatusReasonStart DateExpiration DateVisits RequestedVisits [id number]/10/202312/[id number] InvestigationReasonCommentsCare GorjvcywcjzzY4K4 Post Treatment CallReason CommentsWaldenstrom macroglobulinemia1 week follow upReferral IDStatusReason Start DateExpiration DateVisits RequestedVisits [id number] /[id number] paperworkReasonOnset DateComments Refill Yynkjht1505/29/2023ReasonCommentsWaldenstrom macroglobulinemia (HCC)Reason CommentsRadiology MRISpecialtyDiagnoses / ProceduresReferred By ContactReferred To ContactMR IMAGING Diagnoses Neoplasm of uncertain behavior of liver, gallbladder, and bile ducts Abnormal CT of the abdomen Procedures MRI LIVER WO/W IVCON MRI,ABDOMEN,W&WO CONTRS Joon Piper MD [address] [place] [address] [place] [address] [place] [id number] Referral IDStatusReasonStart DateExpiration DateVisits RequestedVisits [id number] Auto-Generated Referral /[id number] FpttdvxaDrkakoVahrdbnl53192Zeur Med SanduskyInitial ConsultReasonCommentswaldenstrom macroglobulinemiaFollow up ReasonCommentsFuture AppointmentReasonCommentsSleep ApneaS/P DISESpecialty Diagnoses / ProceduresReferred By ContactReferred To Contact Diagnoses Waldenstrom macroglobulinemia Procedures INJ RUXIENCE, 10 MG Joon Piper MD [address] [place] [address] [place] [address] Brandon Treat Laron [address] [place] [address] Referral IDStatusReasonStart DateExpiration DateVisits RequestedVisits [id number]/24/202412/[id number]z macroglobulinemiaTreatment visitReasonCommentsAppointment CancelledReferral ID StatusReasonStart DateExpiration DateVisits RequestedVisits [id number] Prkancmyib08/24/202412/[id number]-mhNaivcxNqhybvwzGsint Apnea ReasonCommentsLab OrdersReferral IDStatusReasonStart DateExpiration DateVisits RequestedVisits [id number]/24/202412/31/[id number] Sleep ApneaSpecialtyDiagnoses / ProceduresReferred By ContactReferred To Contact Neurology Diagnoses TIANNA (obstructive sleep apnea) Procedures VNS Device Interrogation w/simple programming 3 or fewer parameters Evan Eugene DO [address] [place] [address] Phone: tel: fax: Evan Eugene DO [address] [place] [address] Phone: tel: fax: Referral IDStatusReasonStart DateExpiration DateVisits RequestedVisits [id number]/5/20258/[id number] DateCommentsResults 11/17/2024ReasonCommentsBreast MassBoil above right nipple, referred by Laci [facility] Cancer Screening5 YEAR RECALL, LAST EGD & COLONOSCOPY WAS 05/23/2018. REFERRED BY DR MAYS.ReasonCommentsCystIn office excision of infected epidermoid cyst on right chestReasonOnset DateComments Cjkkdta7701/14/2025ReasonCommentsMedication AssistanceRuxience PAP application Goals (unrecognized section and content) Goals may [...] BE BASED ON THE PRIMARY CLINICAL RECORDS. [facility] [employer] [facility] provides no warranty or guarantee of the accuracy or completeness of information in this document.
--- NOTE | 2025-10-05 13:31 | CT_ITS ---
The [address] [address] Patient Name: DENNYS DURON MRN: [id number] date: 1965 Sex: M Assigned Patient Location: CT Current Patient Location: Accession/Order Number: [id number] Exam Date: 10/05/2025 13:24 Report Date: 10/06/2025 00:36 At the request of: LINDA MAYS DO Procedure: CT lung screening low-dose CT lung screening low-dose 10/05/2025 1:31 PM SIGN AND SYMPTOMS: ^Nicotine Dependence TECHNIQUE: Multidetector CT axial slices of the chest were obtained without IV contrast. Multiplanar reformats were performed and viewed on a separate workstation and reviewed to further define anatomy and possible pathology. CT was performed with one or more of the following dose reduction techniques: Automated exposure control, adjustment of the mA and/or kV according to patient size, or use of iterative reconstruction technique. COMPARISON: 12/12/2024. FINDINGS: Lower neck: Thyroid gland within normal limits, no supraclavicle adenopathy. Vessels: Atherosclerotic changes are noted in the thoracic aorta and coronary arteries. Mediastinum and Gianna: Within normal limits. Heart: Normal size. No pericardial effusion. Airways: Within normal limits Lungs: There is a 4 mm noncalcified structure along the major fissure on the left presumably representing a pulmonary lymph node. There is pleural-based scarring at the right lung base. Pleura: Within normal limits. Chest Wall: There is a stimulator generator over the right anterior chest wall with the lead extending into the lower neck. Upper Abdomen: Within normal limits. Bones: Degenerative changes are noted in the thoracic spine. Degenerative changes are noted in the shoulders. CT/CT lung screening low-dose IMPRESSION: Lung RADS version 1.0 assessment category: 1 (negative) Recommendation: Follow-up with low-dose screening chest CT in 12 months is recommended. Impression dictated by: Ritesh Siddiqi M.D. 10/06/2025 12:36 AM Dictation Location: [place] [address] Electronically authenticated by: [id number] Y Date: 10/06/2025 00:36
== END 2025-10-05 13:14 | disposition home or self-care (01) ==
LOC: CT 13:14
PROVIDERS: PCP Internal Medicine; Visit Provider Internal Medicine
DX: F17.210 Nicotine dependence, cigarettes, uncomplicated (principal)
CPT/HCPCS: 71271